=== PATIENT | male | born 1965 ===

== ENCOUNTER 2021-11-11 16:45 | Inpatient (IN) | payer OTHER ==
[~2021-11-11] VITALS: Ht 182.9 cm; Wt 61.4 kg
[2021-11-11 17:11] LABS: MEAN CORPUSCULAR HEMOGLOBIN 36.1 uug (23.8-33.4); MEAN CORPUSCULAR VOLUME 104.2 fL (73.0-96.2); PLATELET COUNT (AUTO) 437 K/uL (152-348)
[2021-11-11 17:26] LABS: ALANINE AMINOTRANSFERASE 58 U/L (16-63); ALKALINE PHOSPHATASE 176 U/L (50-136); ASPARTATE AMINOTRANSFERASE 77 U/L (15-37); BILIRUBIN,DIRECT 0.2 mg/dL (0.0-0.2); BILIRUBIN,TOTAL 0.4 mg/dL (0.2-1.0); CARBON DIOXIDE 28 mmol/L (21-32); CHLORIDE 102 mmol/L (98-107); CREATININE 0.8 mg/dL (0.6-1.3); POTASSIUM 2.9 mmol/L (3.5-5.1); TOTAL PROTEIN, SERUM 7.6 g/dL (6.4-8.2); UREA NITROGEN, BLOOD 5 mg/dL (7-18)
[2021-11-11 17:45] LABS: ACETAMINOPHEN < 2.0 ug/mL (10-30)
[2021-11-11] MEDS ORDERED: PANT40TA49 PO (17:46)
[2021-11-11] MEDS ORDERED: QUET25TA PO (17:46)
[2021-11-11] MEDS ORDERED: AMIT50TA3 PO (17:46)
[2021-11-11] MEDS ORDERED: GABA-532 PO (17:46)
[2021-11-11] MEDS ORDERED: GABA800T11 PO (17:46)
[2021-11-11] MEDS ORDERED: HYDR-501 PO (17:46)
[2021-11-11] MEDS ORDERED: MIRT-93 PO (17:46)
[2021-11-11] MEDS ORDERED: LEVE500T20 PO (17:46)
[2021-11-11] MEDS ORDERED: FLUT1BLS6 IH (17:46)
[2021-11-11] MEDS ORDERED: ACET-73 PO (17:46)
[2021-11-11] MEDS ORDERED: PROP20TA7 PO (17:46)
[2021-11-11] MEDS ORDERED: DEXTROSE 50% 50 ML DISP.SYRIN IV ONE (18:00)
[2021-11-11 18:05] LABS: ETHANOL 55 MG/DL (0-0)
[2021-11-11] MEDS ORDERED: DEXTROSE 50% 50 ML DISP.SYRIN ONE (18:14)
[2021-11-11] MEDS ORDERED: POTASSIUM CHLORIDE 50 ML ONE ×2 (18:47→19:52)
[2021-11-11] MEDS: POTASSIUM CHLORIDE 50 ML IV SCH ×2 (18:54→19:55)
--- NOTE | 2021-11-11 19:00 | NUR ---
received handoff report from Michael FRAZIER
[2021-11-11 19:27] LABS: *BILIRUBIN,URIN NEGATIVE (NEGATIVE); *BLOOD, URINE NEGATIVE (NEGATIVE); *CLARITY,URINE CLEAR (CLEAR); *COLOR,URINE YELLOW (YELLOW); *KETONES,URINE NEGATIVE (NEGATIVE); *UROBILINOGEN,URINE 0.2 E.U./dl (NORMAL); LEUKOCYTE ESTERASE ,URINE 3+ (NEGATIVE); NITRITE, URINE POSITIVE (NEGATIVE); UGLUCOSE NEGATIVE (NEGATIVE)
[2021-11-11 19:38] LABS: *AMPHETAMINE, URINE NEGATIVE (NEGATIVE); *CANNABINOID, URINE NEGATIVE (NEGATIVE); *COCCAINE, URINE NEGATIVE (NEGATIVE); *OPIATE, URINE NEGATIVE (NEGATIVE); *PHENCYCLIDINE SCREEN,URINE NEGATIVE (NEGATIVE)
--- NOTE | 2021-11-11 22:00 | NUR ---
Patient is awake. A/Ox4
[2021-11-11 22:46] LABS: BACTERIA,URINE 20 /HPF (NONE SEEN); WBC,URINE 0-3 /HPF (0-3)
[2021-11-11 22:47] LABS: SQUAMOUS EPITHELIAL CELL,UR FEW /HPF (NONE SEEN); YEAST,URINE MANY /HPF (NONE SEEN)
[2021-11-11] MEDS ORDERED: CEFTRIAXONE 1 G VIAL IM ONE (23:00)
[2021-11-11] MEDS ORDERED: FLUCONAZOLE 100 MG TABLET PO ONE (23:15)
[2021-11-11] MEDS ORDERED: FLUCONAZOLE 100 MG TABLET ONE (23:27)
[2021-11-12] VITALS (24 sets, daily range): BP systolic 73–119; BP diastolic 49–85
--- NOTE | 2021-11-12 00:19 | NUR ---
Called [facility] spoke with Dimple notified her that pt is being discharged and returning to facility. Called [facility] for transportation spoke with Radha and given ETA of 1 hour.
[2021-11-12] MEDS ORDERED: LORAZEPAM 2 MG/1 ML VIAL IM ONE (01:30)
[2021-11-12] MEDS ORDERED: LORAZEPAM 2 MG/1 ML VIAL ONE ×2 (01:31→08:44)
--- NOTE | 2021-11-12 02:00 | NUR ---
Patient went for CT
--- NOTE | 2021-11-12 02:15 | NUR ---
Patient is back from CT
--- NOTE | 2021-11-12 03:05 | NUR ---
Called [facility] ambulance for transport
--- NOTE | 2021-11-12 04:00 | NUR ---
[facility] ambulance arrived for transport
--- NOTE | 2021-11-12 04:05 | NUR ---
Patient not responding. Dr Hoang notified
--- NOTE | 2021-11-12 04:40 | NUR ---
called for bed
--- NOTE | 2021-11-12 05:00 | NUR ---
Dr Hoang spoke to Greyson Maldonado. Patient will be on tele
[2021-11-12] MEDS ORDERED: CEFTRIAXONE 1 G in IV DEXTROSE 5% 50 ML IV ONE (05:15)
[2021-11-12] MEDS ORDERED: CEFTRIAXONE /D5W 50ML IVPB **ER PYXIS IV ONE ×2 (05:17→08:53)
[2021-11-12] MEDS ORDERED: ACETAMINOPHEN 325 MG TABLET PO PRN (05:30)
[2021-11-12] MEDS ORDERED: MAGNESIUM HYDROXIDE 30 ML LIQUID UDC PO PRN (05:30)
[2021-11-12] MEDS ORDERED: IV NS 1000 ML 1,000 ML IV PRN (05:30)
[2021-11-12] MEDS ORDERED: TEMAZEPAM 15 MG CAPSULE PO PRN (05:30)
[2021-11-12] MEDS ORDERED: ONDANSETRON 4 MG/2 ML VIAL IV PRN (05:30)
[2021-11-12] MEDS ORDERED: HYDROCODONE/APAP 5-325MG TABLET PO PRN (05:30)
--- NOTE | 2021-11-12 06:07 | NUR ---
Jimena [address]. Not[address] Hoang
[2021-11-12] MEDS ORDERED: DEXTROSE 50% 50 ML DISP.SYRIN ONE ×2 (06:10→19:56)
[2021-11-12] MEDS ORDERED: DEXTROSE 50% 50 ML DISP.SYRIN IV ONE (06:15)
[2021-11-12] MEDS ORDERED: ONDANSETRON 4 MG/2 ML VIAL ONE (06:23)
[2021-11-12] MEDS ORDERED: GLUCAGON,HUMAN RECOMBINANT 1 MG VIAL ONE (06:23)
[2021-11-12] MEDS ORDERED: GLUCAGON,HUMAN RECOMBINANT 1 MG VIAL IVP ONE (06:30)
[2021-11-12] MEDS ORDERED: ONDANSETRON 4 MG/2 ML VIAL IV ONE (06:30)
[2021-11-12] MEDS: PANTOPRAZOLE SODIUM 40 MG TABLET.DR PO SCH ×2 (07:00→07:33)
--- NOTE | 2021-11-12 07:09 | NUR ---
Dragline Oiler assumes care: asleep, arousable by deep stimuli, non-verbal, his respiration: non-labored, RUE withdraws to painful stimuli with severe left sided weakness. Patient is waiting for an accepting 3rd floor telemetry nurse as endorsed by previous nurse Brenda for acute encephalopathy, UTI and hx of etoh abuse.
--- NOTE | 2021-11-12 07:13 | NUR ---
*Patient is not alert and does not follow simple commands. Patient needs formal swallow evaluation before further oral medications are given, MD notified.
[2021-11-12] MEDS ORDERED: PANTOPRAZOLE SODIUM 40 MG TABLET.DR PO ONE (07:28)
--- NOTE | 2021-11-12 07:48 | NUR ---
Patient is waiting for an accepting telemetry [email or web address] time.
--- NOTE | 2021-11-12 08:40 | NUR ---
Patient has intermittent jerking movements of right extremities, opens eyes to painful stimuli, still non-verbal, MD notified.
[2021-11-12] MEDS ORDERED: LORAZEPAM 2 MG/1 ML VIAL IV STA (08:41)
[2021-11-12] MEDS ORDERED: THIAMINE HCL 100 MG TABLET PO SCH (09:00)
[2021-11-12] MEDS ORDERED: CEFTRIAXONE 1 G in IV DEXTROSE 5% 50 ML IV SCH (09:00)
--- NOTE | 2021-11-12 09:13 | NUR ---
[email or web address].
--- NOTE | 2021-11-12 10:30 | NUR ---
Received report from nurse Caballero in ER. Pt is lethargic and drowsy, had episode of hypoglycemia and possible seizure in ER. dextrose adn glucagon were administered by ER staff. Most recent accucheck reported at 0742 this morning was 136. CT of brain showed nothing acute, history of right sided craniectomy. Pt right upper extremity rigid and left upper and lower severe weakness, possible hemiparesis. Troponin level critical high at 76. MD is aware, imaging and labs ordered by MD accordingly. Comfort measures provided, call light within reach. Will continue to monitor.
[2021-11-12] MEDS ORDERED: IV D5/ 0.9% NACL 1,000 ML IV PRN (11:30)
[2021-11-12] MEDS ORDERED: hydrALAZINE HCL 20 MG/1 ML VIAL IV PRN (12:30)
[2021-11-12 13:03] LABS: ABG BASE EXCESS -3.4 mmol/L; ABG HCO3 28.7 mmol/L; ABG PCO2 85.2 mmHg (35.0-45.0); ABG PH 7.146 (7.350-7.450); ABG PO2 39.8 mmHg (75.0-100.0); ABG SITE RIGHT RADIAL; ABG TOTAL HEMOGLOBIN 18.1 G/dL (13.5-18.0); COHb 1.1 % (0.5-1.5); MetHb 0.1 % (0.0-1.5); O2Hb 56.4 % (94.0-97.0); VENT MODE Nasal Cannula
--- NOTE | 2021-11-12 13:25 | NUR ---
1230 Pt continues to be lethargic, BP 197/114 HR 130, reassessed on both upper extremities and right lower extremity, SBP remained in high 190s. MD was notified and obtained order for hydralazine PRN. Was unable to obtain good reading of SpO2 saturation from several different points (right ear, left ear, fingers, toes, and forehead. Fluctuating saturation, highest noted saturation was 89% SpO2. Pt did not appear in distress. Called for RT to reassess pt. Reading were still fluctuation, placed pt on 2L nasal cannula and ordered ABG to be drawn. O2 was increased to 4L NC, Called for rapid response at 1245. MD was notified. Pulses palpable on all extremities and carotid. Checked blood sugar, resulted as low. Administered D50 IV. Pt BP reassessed and had decreased to SBP 91. HR was decreasing on tele to < 40bpm. Code mell was called. MD was notified of code. ER MD, Charge nurse, and other nursing staff present in room beginning CPR. Pt was intubated by and transferred back to ER at 1325 per machine records units supervisor.
--- NOTE | 2021-11-12 13:30 | NUR ---
Pt was brought to the ER from the tele floor post code blue as ccu status for hospital convenience due to staffing issue. Pt arrives intubated and was placed on vent by PROJECT MANAGER/DESIGN MANAGER.
[2021-11-12] MEDS ORDERED: MIDAZOLAM HCL 5 MG/ML VIAL ONE (13:58)
[2021-11-12] MEDS ORDERED: PIPERACILLIN/TAZOBACTAM/D5W 50 ML IV ONE (13:58)
--- NOTE | 2021-11-12 14:00 | NUR ---
Versed 5mg IM given per verbal order by (who is at bedside).
[2021-11-12] MEDS ORDERED: PANT20TA17 PO (14:01)
[2021-11-12 14:29] LABS: BILIRUBIN,TOTAL 0.3 mg/dL (0.2-1.0); MAGNESIUM 1.8 mg/dL (1.8-2.4); PHOSPHOROUS 5.7 mg/dL (2.5-4.9); TOTAL PROTEIN, SERUM 7.5 g/dL (6.4-8.2)
[2021-11-12] MEDS: IV D5W 1000ML 1,000 ML IV PRN ×2 (14:30→15:39)
--- NOTE | 2021-11-12 14:45 | NUR ---
SBAR REPORT RECIVE FROM JOSE A Matthews/RN & RETAIL SERVICES PROFESSIONAL:SHERRY PT.IN ER ICU CARE. ASSUME CARE.
[2021-11-12] MEDS: NOREPINEPHRINE BITARTRATE 8 MG in IV NORMAL SALINE 242 ML IV PRN ×2 (14:46→18:18)
[2021-11-12 14:55] LABS: ABG HCO3 24.1 mmol/L; ABG PCO2 34.3 mmHg (35.0-45.0); ABG PH 7.464 (7.350-7.450); ABG PO2 526.5 mmHg (75.0-100.0); ABG SITE RIGHT RADIAL; ABG TOTAL HEMOGLOBIN 16.4 G/dL (13.5-18.0); COHb 0.3 % (0.5-1.5); MetHb 0.5 % (0.0-1.5); O2Hb 98.9 % (94.0-97.0); VENT MODE VENT - A/C; VT, ABG 500 mL
--- NOTE | 2021-11-12 15:05 | NUR ---
PT WAS TAKEN TO CT HEAD,TOLERATED WELL.
--- NOTE | 2021-11-12 15:16 | NUR ---
3 LUMEN CENTRAL LINE WAS INSERTED BY DR MCNALLY. PT TOLERATED TO PROCEDURE WITHOUT COMPLICATIONS.
[2021-11-12] MEDS: PIPERACILLIN SODIUM/TAZOBACTAM 3.375 G in IV DEXTROSE 5% 50 ML IV SCH ×2 (15:22→21:26)
[2021-11-12] MEDS: VANCOMYCIN IV 1,000 MG in IV DEXTROSE 5% 250 ML IV SCH (15:23)
[2021-11-12] MEDS: levETIRAcetam 500 MG TABLET PO SCH ×2 (15:29→21:27)
[2021-11-12] MEDS: PROPOFOL 100 ML IV PRN (16:06)
--- NOTE | 2021-11-12 16:10 | NUR ---
LACT ACID RES 4.4 WENT UP FUR OPERATOR:SHERRY WAS NOTIFIED ABOUT AND PT. HR STILL 130'S, CARE OUT ORDER FOR BOLUS NS 500ML.
--- NOTE | 2021-11-12 16:45 | NUR ---
PT.WAS SEEN BY WITH NEW ORDERS.
[2021-11-12] MEDS: HEPARIN/D5W DRIP 500 ML IV PRN (16:58)
[2021-11-12] MEDS ORDERED: HEPARIN SODIUM,PORCINE 1,000 UNITS/ML VIAL IV ONE (17:00)
[2021-11-12] MEDS ORDERED: GABAPENTIN 100 MG CAPSULE PO SCH (17:00)
[2021-11-12] MEDS ORDERED: GABAPENTIN 300 MG CAPSULE PO SCH (17:00)
[2021-11-12] MEDS ORDERED: hydrOXYzine HCL 25 MG TABLET PO SCH (17:00)
[2021-11-12] MEDS ORDERED: IV NORMAL SALINE 500 ML IV ONE ×2 (17:15→20:15)
[2021-11-12] MEDS ORDERED: AMITRIPTYLINE HCL 50 MG TABLET PO SCH (18:00)
[2021-11-12] MEDS ORDERED: MIRTAZAPINE 15 MG TABLET PO SCH (18:00)
[2021-11-12] MEDS: ALBUTEROL SULFATE 2.5 MG/3 ML NEBU NEB SCH (19:42)
[2021-11-12] MEDS: IPRATROPIUM BROMIDE 0.5 MG/2.5 ML NEBU NEB SCH (19:42)
[2021-11-12] MEDS: IV 10% DEXTROSE 1,000 ML IV PRN (21:00)
[2021-11-12] MEDS: ACETAMINOPHEN 650 MG SUPP.RECT RC PRN (21:00)
[2021-11-13] VITALS (94 sets, daily range): BP systolic 70–150; BP diastolic 23–112
[2021-11-13] MEDS: VANCOMYCIN IV 1,000 MG in IV DEXTROSE 5% 250 ML IV SCH ×3 (00:05→20:15)
[2021-11-13] MEDS: BLOOD SUGAR DIAGNOSTIC 1 EACH STRIP VI SCH ×6 (00:06→19:31)
[2021-11-13] MEDS: PROPOFOL 100 ML IV PRN ×3 (00:12→20:36)
[2021-11-13 00:44] LABS: BILIRUBIN,TOTAL 0.5 mg/dL (0.2-1.0); MAGNESIUM 1.4 mg/dL (1.8-2.4); PHOSPHOROUS 2.7 mg/dL (2.5-4.9)
[2021-11-13 00:51] LABS: POTASSIUM 2.6 mmol/L (3.5-5.1)
[2021-11-13] MEDS ORDERED: POTASSIUM CHLORIDE 20 MEQ POWDER PACKET GT ONE (01:15)
[2021-11-13] MEDS: POTASSIUM CHLORIDE 50 ML IV SCH ×6 (01:35→19:05)
[2021-11-13] MEDS: MAGNESIUM SULFATE/D5W 100 ML IV SCH ×2 (01:36→02:42)
[2021-11-13] MEDS: ALBUTEROL SULFATE 2.5 MG/3 ML NEBU NEB SCH ×4 (01:41→19:06)
[2021-11-13] MEDS: IPRATROPIUM BROMIDE 0.5 MG/2.5 ML NEBU NEB SCH ×4 (01:41→19:06)
[2021-11-13] MEDS ORDERED: ACETAMINOPHEN 650 MG/20.3 ML LIQUID UDC GT PRN (03:30)
[2021-11-13] MEDS: PIPERACILLIN SODIUM/TAZOBACTAM 3.375 G in IV DEXTROSE 5% 50 ML IV SCH (05:14)
[2021-11-13] MEDS: NOREPINEPHRINE BITARTRATE 8 MG in IV NORMAL SALINE 242 ML IV PRN (05:34)
[2021-11-13 05:43] LABS: HEMATOCRIT 45.3 % (36.7-47.1); MEAN CORPUSCULAR VOLUME 104.2 fL (73.0-96.2); PLATELET COUNT (AUTO) 328 K/uL (152-348)
[2021-11-13] MEDS ORDERED: TEMAZEPAM 15 MG CAPSULE PO PRN (05:45)
[2021-11-13 06:01] LABS: CREATININE 0.9 mg/dL (0.6-1.3); MAGNESIUM 2.3 mg/dL (1.8-2.4); PHOSPHOROUS 2.2 mg/dL (2.5-4.9); POTASSIUM 3.6 mmol/L (3.5-5.1)
[2021-11-13 06:12] LABS: THYROID STIMULATING HORMONE 0.181 mIU/mL (0.358-3.740)
[2021-11-13 06:24] LABS: ABG BASE EXCESS 0.3 mmol/L; ABG HCO3 23.2 mmol/L; ABG PH 7.465 (7.350-7.450); ABG PO2 78.6 mmHg (75.0-100.0); ABG SITE LEFT RADIAL; COHb 0.5 % (0.5-1.5); MetHb 0.4 % (0.0-1.5); O2Hb 95.5 % (94.0-97.0); VENT MODE VENT - A/C; VT, ABG 500 mL
[2021-11-13] MEDS ORDERED: CLOPIDOGREL 75 MG TABLET PO SCH (09:00)
[2021-11-13] MEDS ORDERED: PANTOPRAZOLE ORAL SUSPENSION 40 MG SUSPDR.PKT GT SCH (09:00)
[2021-11-13] MEDS ORDERED: PROPRANOLOL HCL 20 MG TABLET PO SCH (09:00)
[2021-11-13] MEDS ORDERED: GABAPENTIN 400 MG CAPSULE PO SCH (09:00)
[2021-11-13] MEDS ORDERED: ASPIRIN 81 MG TAB.CHEW PO SCH (09:00)
[2021-11-13] MEDS ORDERED: HYDROCODONE/APAP 5-325MG TABLET NG PRN (09:01)
[2021-11-13] MEDS ORDERED: PANTOPRAZOLE ORAL SUSPENSION 40 MG SUSPDR.PKT NG SCH (09:02)
[2021-11-13] MEDS ORDERED: hydrOXYzine HCL 25 MG TABLET NG SCH (09:02)
[2021-11-13] MEDS ORDERED: MAGNESIUM HYDROXIDE 30 ML LIQUID UDC NG PRN (09:02)
[2021-11-13] MEDS ORDERED: GABAPENTIN 300 MG CAPSULE NG SCH (09:02)
[2021-11-13] MEDS ORDERED: MAGNESIUM SULFATE/D5W 100 ML IV SCH (09:15)
[2021-11-13] MEDS: levETIRAcetam 500 MG TABLET PO SCH (09:42)
[2021-11-13] MEDS: GABAPENTIN 300 MG CAPSULE NG SCH ×3 (09:42→17:00)
[2021-11-13] MEDS: CLOPIDOGREL 75 MG TABLET NG SCH (09:42)
[2021-11-13] MEDS: PANTOPRAZOLE ORAL SUSPENSION 40 MG SUSPDR.PKT NG SCH (09:42)
[2021-11-13] MEDS: ACETAMINOPHEN 650 MG/20.3 ML LIQUID UDC NG PRN (10:43)
[2021-11-13] MEDS ORDERED: POTASSIUM PHOSPHATE MM 15 MMOL in IV NORMAL SALINE 250 ML IV ONE (11:00)
[2021-11-13] MEDS ORDERED: PHENYLEPHRINE IV 100 MG in IV NORMAL SALINE 240 ML IV PRN (11:00)
[2021-11-13] MEDS ORDERED: DEXTROSE 50% 50 ML DISP.SYRIN IV ONE ×3 (12:15→17:45)
[2021-11-13] MEDS: PHENYLEPHRINE IV 100 MG in IV NORMAL SALINE 240 ML IV PRN (13:05)
[2021-11-13] MEDS: IV 10% DEXTROSE 1,000 ML IV PRN (13:52)
[2021-11-13] MEDS: MEROPENEM 1 G in IV NORMAL SALINE 100 ML IV SCH ×2 (14:04→21:10)
--- NOTE | 2021-11-13 14:12 | NUR ---
Inquired with Dr. Chin to start tube feeding and received orders to start tube feeding per dietary reccomendations.
--- NOTE | 2021-11-13 14:41 | NUR ---
Patient noted to be bucking the vent, tachycardic, and tachypneic, right arm involuntary movement with subsequent right leg movement and shaking. Notified Dr. Chin of possible seizure activity, received orders for keppra 1000mg IV now and [id number].
--- NOTE | 2021-11-13 15:10 | NUR ---
Patient vomiting, and noted desaturation, RT called to bedside and increased oxygen to 100%. Patient given zofran and patients HR returned and possible seizure activity stopped. HR returned to low 100's, and able to titrate oxygen back to 30% with an oxygen saturation of 99%. Checked blood glucose to reveal a BG level of 111.
[2021-11-13] MEDS: levETIRAcetam IV 1,000 MG in IV DEXTROSE 5% 100 ML IV SCH ×2 (15:14→20:16)
[2021-11-13 16:48] LABS: HEMATOCRIT 43.5 % (36.7-47.1); MEAN CORPUSCULAR HEMOGLOBIN 35.8 uug (23.8-33.4); MEAN CORPUSCULAR VOLUME 105.9 fL (73.0-96.2); PLATELET COUNT (AUTO) 292 K/uL (152-348)
[2021-11-13 16:56] LABS: POTASSIUM 3.5 mmol/L (3.5-5.1)
[2021-11-13 17:02] LABS: BILIRUBIN,TOTAL 0.6 mg/dL (0.2-1.0); TOTAL PROTEIN, SERUM 6.2 g/dL (6.4-8.2)
--- NOTE | 2021-11-13 17:10 | NUR ---
Patient placed on Air mattress, and EEG here for evaluation.
[2021-11-13] MEDS: LORAZEPAM 2 MG/1 ML VIAL IV PRN ×2 (17:45→19:27)
--- NOTE | 2021-11-13 17:50 | NUR ---
patient had an episode of shaking during EEG, dr zepeda on the phone and requested 1mg ativan to be given and patient started vomiting again with Blood Glucose level 45. D50 given, and NG tube to low suction with immediate return of 250cc/or straw colored and later more purulent looking brownish fluid.
[2021-11-13] MEDS ORDERED: MIRTAZAPINE 15 MG TABLET NG SCH (18:00)
[2021-11-13] MEDS: ACETAMINOPHEN 650 MG SUPP.RECT RC PRN (18:30)
--- NOTE | 2021-11-13 18:34 | NUR ---
Patient spiked temperature of 100.1 at this time, tylenol given and cooling blanket taken off of monitoring mode to actively cool.
[2021-11-13] MEDS ORDERED: NOREPINEPHRINE BITARTRATE 32 MG in IV NORMAL SALINE 218 ML IV PRN (18:45)
[2021-11-13] MEDS: HEPARIN/D5W DRIP 500 ML IV PRN (19:22)
--- NOTE | 2021-11-13 19:22 | NUR ---
Report given to shift foreman nurse Kacey. Patient continues to be sinus tachycardia on neosynephrine 2.5 mcg/kg/min, propofol 45 mcg/kg/min, d10 running at 50cc/hr. Patient is overbreathing the vent and is on the cooling blanket with a temp of 98.8f. rivas draining appropriately, and patient is on air mattress.
--- NOTE | 2021-11-13 20:00 | NUR ---
Patient is restless, very agitated, backing up on the vent, RT at bedside. Patient is not getting the minute ventilation. Suctioned done. Patient is tachycardic, NP=[id number], tachypneic, RR=24. Ativan PRN as ordered given for agitation.
[2021-11-13] MEDS: ATORVASTATIN 40 MG TABLET NG SCH (20:35)
--- NOTE | 2021-11-13 20:50 | NUR ---
Lab called regarding critical lab result LA 2.5. Called [facility] exchange, awaiting for callback.
[2021-11-13] MEDS: IV NORMAL SALINE 250 ML IV PRN (20:57)
[2021-11-13] MEDS ORDERED: ATORVASTATIN 40 MG TABLET PO SCH (21:00)
[2021-11-13] MEDS ORDERED: AMITRIPTYLINE HCL 50 MG TABLET NG SCH (21:00)
--- NOTE | 2021-11-13 21:00 | NUR ---
Spoke with Dr. Leonardo re: LA 2.5. Per Dr. Leonardo, no new orders.
[2021-11-13] MEDS ORDERED: PIPERACILLIN SODIUM/TAZOBACTAM 3.375 G in IV DEXTROSE 5% 100 ML IV SCH (22:00)
[2021-11-13] MEDS ORDERED: FLUCONAZOLE 200 MG/NS 100ML IV 100 MG in PREMIXED 1 EACH IV SCH (22:00)
[2021-11-13] MEDS ORDERED: FLUCONAZOLE 200 MG/100 ML PIGGYBACK ONE (23:19)
[2021-11-14] VITALS (91 sets, daily range): BP systolic 80–147; BP diastolic 37–126
[2021-11-14] MEDS: BLOOD SUGAR DIAGNOSTIC 1 EACH STRIP VI SCH ×6 (00:05→20:10)
--- NOTE | 2021-11-14 00:30 | NUR ---
rn psychiatric LIZA came and examined patient with WOUND CARE TREATMENT AND RECOMMENDATION. Addendum: 11/14/21 at 1310 by TALAT DENNEY RN DONE AT 11/14/2021 AT 12:30
[2021-11-14] MEDS: ALBUTEROL SULFATE 2.5 MG/3 ML NEBU NEB SCH ×4 (01:22→21:17)
[2021-11-14] MEDS: IPRATROPIUM BROMIDE 0.5 MG/2.5 ML NEBU NEB SCH ×4 (01:22→21:16)
[2021-11-14] MEDS: PROPOFOL 100 ML IV PRN ×3 (02:05→17:02)
[2021-11-14 04:55] LABS: MEAN CORPUSCULAR HEMOGLOBIN 36.4 uug (23.8-33.4); MEAN CORPUSCULAR VOLUME 106.9 fL (73.0-96.2); PLATELET COUNT (AUTO) 284 K/uL (152-348)
[2021-11-14] MEDS: MEROPENEM 1 G in IV NORMAL SALINE 100 ML IV SCH ×3 (05:09→20:38)
[2021-11-14 05:10] LABS: BILIRUBIN,TOTAL 0.6 mg/dL (0.2-1.0); CREATININE 0.9 mg/dL (0.6-1.3); MAGNESIUM 1.9 mg/dL (1.8-2.4); PHOSPHOROUS 3.4 mg/dL (2.5-4.9); POTASSIUM 3.6 mmol/L (3.5-5.1); TOTAL PROTEIN, SERUM 6.4 g/dL (6.4-8.2)
[2021-11-14] MEDS: VANCOMYCIN IV 1,000 MG in IV DEXTROSE 5% 250 ML IV SCH ×2 (05:10→15:42)
[2021-11-14] MEDS: PANTOPRAZOLE ORAL SUSPENSION 40 MG SUSPDR.PKT NG SCH (05:10)
--- NOTE | 2021-11-14 05:58 | NUR ---
PT REMAINS INTUBATED ON CMV, NO VENT CHANGES MADE DURING SHIFT. SPO2 AND RESPIRATIONS WNL. NO RESP. DISTRESS NOTED. DURING SHIFT. ETT REPOSITIONED Q2. WILL CONTINUE TO MONITOR AND FOLLOW CURRENT RESP. TREATMENTS ORDERED.
--- NOTE | 2021-11-14 06:00 | NUR ---
no changed on the heparin drip APTT 59.5.follow heparin drip protocol .
[2021-11-14 06:19] LABS: ABG BASE EXCESS -2.3 mmol/L; ABG HCO3 21.8 mmol/L; ABG PH 7.401 (7.350-7.450); ABG PO2 111.3 mmHg (75.0-100.0); ABG SITE LEFT RADIAL; ABG TOTAL HEMOGLOBIN 15.3 G/dL (13.5-18.0); COHb 0.5 % (0.5-1.5); MetHb 0.2 % (0.0-1.5); O2Hb 97.6 % (94.0-97.0); VENT MODE VENT - A/C; VT, ABG 500 mL
--- NOTE | 2021-11-14 07:15 | NUR ---
PATIENT COOLING BLANKET FOR KEEP TEMP 98.6 F.SEE VITALS SHEET .
--- NOTE | 2021-11-14 07:45 | NUR ---
DR: SOCRATES at bedside making rounds , md examined patient .updated MD with patient v/s ,vent ,secretions and medications .
--- NOTE | 2021-11-14 08:07 | NUR ---
Pt received on cont west vent with given settings of AC 20, VT 500, PEEP +5, 30% Fio2. ETT is secured via anchorfast @ approx 24 at the lip. Oral care and sxn provided. Alarms on and audible. Ventilator plugged in red out let with ambubag at bedside. Tx given at this time. Will continue to monitor throughout shift.
[2021-11-14] MEDS: levETIRAcetam IV 1,000 MG in IV DEXTROSE 5% 100 ML IV SCH ×2 (08:13→20:32)
[2021-11-14] MEDS: PHENYLEPHRINE IV 100 MG in IV NORMAL SALINE 240 ML IV PRN ×4 (08:18→17:32)
--- NOTE | 2021-11-14 08:32 | NUR ---
seen by DR: EDEN .
[2021-11-14] MEDS: CLOPIDOGREL 75 MG TABLET NG SCH (08:39)
[2021-11-14] MEDS: THIAMINE HCL 100 MG TABLET NG SCH (08:39)
[2021-11-14] MEDS: GABAPENTIN 300 MG CAPSULE NG SCH ×3 (08:40→17:00)
[2021-11-14] MEDS: IV 10% DEXTROSE 1,000 ML IV PRN ×2 (08:51→19:33)
--- NOTE | 2021-11-14 09:28 | NUR ---
respiratory therapist at b/s placed patient on cpap peep 5 psv 8 titrate fio2 greater than or equal to 94%.
--- NOTE | 2021-11-14 09:30 | NUR ---
turned and reposition patient ,offloaded back with pillows and ble elevated with pillows . hob up.suction via mouth and via ett ,mouth orally moderate to large ,thick secretion brownish-walden ,ett was small to dry secretions.
[2021-11-14 10:59] LABS: ABG BASE EXCESS -2.5 mmol/L; ABG HCO3 23.2 mmol/L; ABG PH 7.349 (7.350-7.450); ABG PO2 43.4 mmHg (75.0-100.0); ABG SITE LEFT RADIAL; ABG TOTAL HEMOGLOBIN 15.9 G/dL (13.5-18.0); COHb 0.6 % (0.5-1.5); CPAP,BG 8 cmH20; MetHb 0.1 % (0.0-1.5); O2Hb 76.1 % (94.0-97.0); VENT MODE VENT - CPAP
--- NOTE | 2021-11-14 11:44 | NUR ---
called JOMAR CROWELL dictated abg results . made aware abg done on cpap he said he want the cpap in am not now the order says 11/14/2021 08:22
--- NOTE | 2021-11-14 11:53 | NUR ---
MD:MICHAEL BERGMAN came and examined patient ,as per MD she is going to stop vancomycin ,fluconazole .
--- NOTE | 2021-11-14 12:27 | NUR ---
WOUND CARE CONSULT: PT PRESENTS WITH SACRAL INTACT DTI AND LEFT THUMB WOUND WITH YELLOW SLOUGH, PRESENT ON ADMISSION. DR TED TORREZ NOTIFIED OF SURGICAL CONSULT REQUEST. RECOMMENDATIONS MADE FOR SKIN PROTECTION AND WOUND CARE. DISCUSSED WITH NURSING STAFF. PT IS ON FIRST STEP LOW AIRLOSS MATTRESS. MD IN AGREEMENT WITH PLAN OF CARE.
[2021-11-14] MEDS ORDERED: NOREPINEPHRINE BITARTRATE 8 MG in IV NORMAL SALINE 242 ML IV PRN (17:00)
--- NOTE | 2021-11-14 18:30 | NUR ---
FAHEEM Hogan WOUND CARE ASSEMBLER MOTOR VEHICLE ( SURGEON) came and examined patient c/o left thumb continue same as wound care nurse recommendation.
[2021-11-14] MEDS ORDERED: IV NORMAL SALINE 250 ML IV ONE ×2 (19:45→20:00)
[2021-11-14] MEDS: ATORVASTATIN 40 MG TABLET NG SCH (20:38)
--- NOTE | 2021-11-14 23:00 | NUR ---
Received report. Continuity of care from previous shift. Assessment done. Will continue to monitor closely.
--- NOTE | 2021-11-14 23:22 | NUR ---
report given to stepan matrinez
[2021-11-15] VITALS (96 sets, daily range): BP systolic 75–164; BP diastolic 50–123
[2021-11-15] MEDS: BLOOD SUGAR DIAGNOSTIC 1 EACH STRIP VI SCH ×7 (00:05→23:50)
[2021-11-15] MEDS: IPRATROPIUM BROMIDE 0.5 MG/2.5 ML NEBU NEB SCH ×4 (01:26→19:56)
[2021-11-15] MEDS: ALBUTEROL SULFATE 2.5 MG/3 ML NEBU NEB SCH ×4 (01:26→19:57)
[2021-11-15] MEDS: PROPOFOL 100 ML IV PRN ×2 (01:31→21:35)
[2021-11-15] MEDS: HEPARIN/D5W DRIP 500 ML IV PRN (02:31)
--- NOTE | 2021-11-15 03:35 | NUR ---
PATIENT ON CONT SIDHU VENT WITH 7.5 ET/TUBE IN PLACE AND SECURED WITH ANCHOR FAST, WITH CURRENT VENT SETTINGS, A/C 20, VT 500ML , PEEP5, FIO2 @ 30%, PT DOES ASSIST AT TIMES, AND MOVE AROUND SLIGHTLY, NO VENT CHANGES MADE, SUCTIONED LIGHT PALE YELL TINGE SECRETIONS, CHANGE HME, ALL VENT ALARMS , WEAN IN AM , ON TRIAL CPAP PSV 8, ON DAY SHIFT.Shruti VOGEL RCP Addendum: 11/15/21 at 0337 by CHEMA VOGEL RT Amended: Links added.
--- NOTE | 2021-11-15 03:45 | NUR ---
AM care and HCG bath done. Linen changed.
[2021-11-15 05:32] LABS: HEMATOCRIT 40.8 % (36.7-47.1); MEAN CORPUSCULAR HEMOGLOBIN 36.3 uug (23.8-33.4); MEAN CORPUSCULAR VOLUME 106.3 fL (73.0-96.2); PLATELET COUNT (AUTO) 259 K/uL (152-348)
[2021-11-15 05:44] LABS: CREATININE 0.8 mg/dL (0.6-1.3); MAGNESIUM 1.8 mg/dL (1.8-2.4); PHOSPHOROUS 2.3 mg/dL (2.5-4.9); POTASSIUM 3.4 mmol/L (3.5-5.1)
--- NOTE | 2021-11-15 06:00 | NUR ---
No seizure activity noted.
[2021-11-15] MEDS: MEROPENEM 1 G in IV NORMAL SALINE 100 ML IV SCH ×3 (06:22→21:10)
[2021-11-15] MEDS: PANTOPRAZOLE ORAL SUSPENSION 40 MG SUSPDR.PKT NG SCH (06:25)
--- NOTE | 2021-11-15 07:30 | NUR ---
received change of shift report on pt. pt intubated et 7.5, lipline 23, FiO2 40%, mech AC 20, TV 500, Peep 5. pt sinus tachy, rivas in place and in tact, draining urine. IV access on the right FA 20g and right IJ triple lumen. holding propofol, pt on weaning trial. will continue to monitor
[2021-11-15 08:35] LABS: ABG HCO3 21.5 mmol/L; ABG PCO2 29.9 mmHg (35.0-45.0); ABG PH 7.474 (7.350-7.450); ABG PO2 86.2 mmHg (75.0-100.0); ABG SITE LEFT BRACHIAL; ABG TOTAL HEMOGLOBIN 14.2 G/dL (13.5-18.0); COHb 0.2 % (0.5-1.5); CPAP,BG 8 cmH20; MetHb 0.2 % (0.0-1.5); O2Hb 96.9 % (94.0-97.0); VENT MODE CPAP
--- NOTE | 2021-11-15 08:45 | NUR ---
seen by edge stainer machine, orders to titrate raúl will continue to monitor
[2021-11-15] MEDS: THIAMINE HCL 100 MG TABLET NG SCH (09:10)
[2021-11-15] MEDS: levETIRAcetam IV 1,000 MG in IV DEXTROSE 5% 100 ML IV SCH ×2 (09:11→20:37)
[2021-11-15] MEDS: CLOPIDOGREL 75 MG TABLET NG SCH (09:11)
[2021-11-15] MEDS: GABAPENTIN 300 MG CAPSULE NG SCH ×3 (09:11→18:34)
[2021-11-15] MEDS: PHENYLEPHRINE IV 100 MG in IV NORMAL SALINE 240 ML IV PRN (10:28)
[2021-11-15] MEDS ORDERED: POTASSIUM PHOSPHATE MM 15 MMOL in IV NORMAL SALINE 250 ML IV ONE (11:00)
--- NOTE | 2021-11-15 12:24 | NUR ---
1058am: Heart rate increased to high 140'/min. Respiratory therapist Jair is at bedside, suctioning in progress. Primary RN Bharti notified. 1215pm: Heart rate down to 130's/min. Dr Escobar is@bedside and is updated accordingly.
[2021-11-15] MEDS: IV 10% DEXTROSE 1,000 ML IV PRN (16:26)
--- NOTE | 2021-11-15 17:00 | NUR ---
PT REMAINS INTUBATED, STABLE ON VENT. PT IS TOLERATING CPAP 5, PSV 8, 30% FIO2 WELL. PT IS UNRESPONSIVE, UNABLE TO FOLLOW COMMANDS. RN/MD IS AWARE. ADEQUATE VOLUMES OBSERVED. SPO2 AND RESPIRATIONS WNL. NO RESP. DISTRESS NOTED. IN-LINE TX'S TOLERATED WELL WITHOUT ADVERSE REACTION. ETT REPOSITIONED Q2. WILL CONTINUE TO MONITOR AND FOLLOW CURRENT RESPIRATORY TREATMENTS ORDERED.
[2021-11-15] MEDS: ACETAMINOPHEN 650 MG/20.3 ML LIQUID UDC NG PRN ×2 (18:35→21:29)
[2021-11-15] MEDS: ATORVASTATIN 40 MG TABLET NG SCH (20:37)
--- NOTE | 2021-11-15 21:00 | NUR ---
Dr Haynes at bedside, report given.
--- NOTE | 2021-11-15 21:00 | NUR ---
Patient is very agitated. Ativan PRN given as ordered. Will continue to monitor closely.
[2021-11-15] MEDS: LORAZEPAM 2 MG/1 ML VIAL IV PRN (21:10)
--- NOTE | 2021-11-15 21:37 | NUR ---
Patient still agitated, moving extremities, placed back on propofol drip @5mcg/kg/min. Will continue to monitor closely. Addendum: 11/16/21 at 0515 by Beth Salas RN tachycardic, DS=[id number].
[2021-11-15] MEDS: REMEDY ESSENTIAL ZINC PASTE 113 GM TP PRN (22:11)
[2021-11-16] VITALS (92 sets, daily range): BP systolic 67–142; BP diastolic 32–101
[2021-11-16] MEDS: ALBUTEROL SULFATE 2.5 MG/3 ML NEBU NEB SCH ×4 (00:33→19:57)
[2021-11-16] MEDS: IPRATROPIUM BROMIDE 0.5 MG/2.5 ML NEBU NEB SCH ×4 (00:33→19:56)
--- NOTE | 2021-11-16 00:38 | NUR ---
PATIENT HAS BEEN ON SIDHU VENT WITH 7.5 ET/TUBE IN PLACE WITH ANCHOR FAST, ROTATE TUBE, SUCTION, SUCTION MOUTH, CHANGE HME AND THI, PT HAS BEEN ON CPAP MODE PSV8, APPROX. RR17, NEB INLINE, STABLE, NO CHANGES MADE, 0800 ABG. D JASPREET LABOR RELATIONS SUPERVISOR Addendum: 11/16/21 at 0040 by CHEMA VOGEL RT Amended: Links added.
--- NOTE | 2021-11-16 01:00 | NUR ---
Propofol turned off, BP 89/65, patient is responsive to physical stimuli. Will monitor later if needed to be restarted.
[2021-11-16] MEDS: PHENYLEPHRINE IV 100 MG in IV NORMAL SALINE 240 ML IV PRN (03:16)
[2021-11-16] MEDS: BLOOD SUGAR DIAGNOSTIC 1 EACH STRIP VI SCH ×6 (04:25→23:13)
[2021-11-16] MEDS: MEROPENEM 1 G in IV NORMAL SALINE 100 ML IV SCH ×2 (05:33→14:10)
[2021-11-16] MEDS: PANTOPRAZOLE ORAL SUSPENSION 40 MG SUSPDR.PKT NG SCH (05:39)
[2021-11-16 05:41] LABS: MEAN CORPUSCULAR HEMOGLOBIN 36.2 uug (23.8-33.4); MEAN CORPUSCULAR VOLUME 106.3 fL (73.0-96.2); PLATELET COUNT (AUTO) 269 K/uL (152-348)
[2021-11-16 05:46] LABS: CREATININE 0.7 mg/dL (0.6-1.3); PHOSPHOROUS 2.5 mg/dL (2.5-4.9); POTASSIUM 2.9 mmol/L (3.5-5.1)
--- NOTE | 2021-11-16 06:00 | NUR ---
No seizure activity noted.
[2021-11-16] MEDS ORDERED: POTASSIUM CHLORIDE 20 MEQ POWDER PACKET GT STA (06:37)
--- NOTE | 2021-11-16 06:40 | NUR ---
Patient slowly started to move feet. VSS. Will continue to monitor closely.
--- NOTE | 2021-11-16 06:40 | NUR ---
Called [facility] and spoke with Greyson Maldonado NP re: K lab. Per Greyson Maldonado NP to give K 40mEq via NG now, then give K 40mEq IV. Noted and carried out.
[2021-11-16] MEDS: POTASSIUM CHLORIDE 50 ML IV SCH ×4 (07:58→10:21)
[2021-11-16] MEDS: THIAMINE HCL 100 MG TABLET NG SCH (07:58)
[2021-11-16] MEDS: CLOPIDOGREL 75 MG TABLET NG SCH (07:58)
[2021-11-16] MEDS: GABAPENTIN 300 MG CAPSULE NG SCH ×3 (07:58→17:12)
[2021-11-16] MEDS: LORAZEPAM 2 MG/1 ML VIAL IV PRN (07:59)
--- NOTE | 2021-11-16 08:46 | NUR ---
PT RECEIVED ON CPAP WITH ORDERED SETTINGS. CPAP +5 P/S 8 @30%
[2021-11-16] MEDS: levETIRAcetam IV 1,000 MG in IV DEXTROSE 5% 100 ML IV SCH ×2 (08:53→20:34)
--- NOTE | 2021-11-16 12:00 | NUR ---
Dr. gant in the unit to see patient. patient unable to extubate patient is not able to follow commands or is awake. Patient to be placed back on AC mode with new settings, sedation as required.
--- NOTE | 2021-11-16 12:21 | NUR ---
@1127 DR ORDERED PT TO BE CHANGED TO AC 12 450 +5 @ 40% FIO2. PT DAYSI WELL.
[2021-11-16] MEDS: IV 10% DEXTROSE 1,000 ML IV PRN (15:29)
--- NOTE | 2021-11-16 16:30 | NUR ---
Dr. cervantes ordered to start feedings and start GI floranex
[2021-11-16] MEDS ORDERED: SODIUM BICARBONATE 8.4% 50 MEQ/50 ML DISP.SYRIN IV ONE (16:49)
[2021-11-16] MEDS ORDERED: EPINEPHRINE 1:10,000 1 MG/10 ML DISP.SYRIN IV ONE (16:49)
[2021-11-16] MEDS ORDERED: DEXTROSE 50% 50 ML DISP.SYRIN IV ONE (16:49)
[2021-11-16] MEDS: CULTURELLE CAPSULE NG SCH ×3 (17:11→20:34)
[2021-11-16] MEDS: ACETAMINOPHEN 650 MG/20.3 ML LIQUID UDC NG PRN (17:23)
[2021-11-16] MEDS: PROPOFOL 100 ML IV PRN (19:19)
[2021-11-16] MEDS: ATORVASTATIN 40 MG TABLET NG SCH (20:34)
[2021-11-16] MEDS: CEFEPIME HCL 1 G in IV DEXTROSE 5% 50 ML IV SCH (21:33)
--- NOTE | 2021-11-16 23:41 | NUR ---
PATIENT ON CONT SIDHU VENT WITH 7.5 ET/TUBE IN PLACE AND SECURED WITH ANCHOR FAST, MOVE Q2 HOURS, SUCTION MOUTH , SUCTION ET/TUBE, SLIGHT PALE YELL TINGE SECRETIONS, CHANGE HME, ALL VENT ALARMS GOOD, PT ON A/C 12, 450ML, PEEP5, FIO2 @ 40%, ALL SHIFT .Shruti PEREZP Addendum: 11/16/21 at 2343 by CHEMA VOGEL RT Amended: Links added.
[2021-11-17] VITALS (94 sets, daily range): BP systolic 67–157; BP diastolic 53–108
[2021-11-17] MEDS: ALBUTEROL SULFATE 2.5 MG/3 ML NEBU NEB SCH ×4 (00:54→19:25)
[2021-11-17] MEDS: IPRATROPIUM BROMIDE 0.5 MG/2.5 ML NEBU NEB SCH ×4 (00:54→19:25)
[2021-11-17] MEDS: PHENYLEPHRINE IV 100 MG in IV NORMAL SALINE 240 ML IV PRN ×2 (01:13→15:08)
[2021-11-17] MEDS: BLOOD SUGAR DIAGNOSTIC 1 EACH STRIP VI SCH ×6 (04:15→23:55)
--- NOTE | 2021-11-17 04:30 | NUR ---
Patient noted to have dark, green, loose stool. Stool sent for C diff. Flexiseal inserted.
[2021-11-17] MEDS: CEFEPIME HCL 1 G in IV DEXTROSE 5% 50 ML IV SCH ×3 (05:04→20:55)
[2021-11-17 05:16] LABS: HEMATOCRIT 43.7 % (36.7-47.1); MEAN CORPUSCULAR HEMOGLOBIN 36.7 uug (23.8-33.4); MEAN CORPUSCULAR VOLUME 106.7 fL (73.0-96.2); PLATELET COUNT (AUTO) 319 K/uL (152-348)
[2021-11-17] MEDS: PANTOPRAZOLE ORAL SUSPENSION 40 MG SUSPDR.PKT NG SCH (05:25)
[2021-11-17 05:28] LABS: CREATININE 0.7 mg/dL (0.6-1.3); MAGNESIUM 2.2 mg/dL (1.8-2.4); PHOSPHOROUS 2.7 mg/dL (2.5-4.9); POTASSIUM 3.6 mmol/L (3.5-5.1)
--- NOTE | 2021-11-17 06:00 | NUR ---
TF Jevity 1.2 off [id number].
[2021-11-17] MEDS: PROPOFOL 100 ML IV PRN ×2 (07:26→20:08)
[2021-11-17] MEDS: CULTURELLE CAPSULE NG SCH ×2 (08:16→20:08)
[2021-11-17] MEDS: CLOPIDOGREL 75 MG TABLET NG SCH (08:16)
[2021-11-17] MEDS: levETIRAcetam IV 1,000 MG in IV DEXTROSE 5% 100 ML IV SCH ×2 (08:17→20:55)
[2021-11-17] MEDS: ACETAMINOPHEN 650 MG/20.3 ML LIQUID UDC NG PRN ×2 (08:18→20:49)
[2021-11-17] MEDS: GABAPENTIN 300 MG CAPSULE NG SCH ×3 (08:18→16:17)
[2021-11-17] MEDS: THIAMINE HCL 100 MG TABLET NG SCH (08:22)
[2021-11-17] MEDS: MORPHINE SULFATE 2 MG/1 ML DISP.SYRIN IV PRN (10:56)
[2021-11-17] MEDS: IV 10% DEXTROSE 1,000 ML IV PRN (15:08)
[2021-11-17] MEDS: ATORVASTATIN 40 MG TABLET NG SCH (20:08)
[2021-11-17] MEDS: ENOXAPARIN SODIUM 40 MG/0.4 ML DISP.SYRIN SQ SCH (20:09)
[2021-11-18] VITALS (51 sets, daily range): BP systolic 62–159; BP diastolic 48–111
[2021-11-18] MEDS: ALBUTEROL SULFATE 2.5 MG/3 ML NEBU NEB SCH ×4 (01:23→19:07)
[2021-11-18] MEDS: IPRATROPIUM BROMIDE 0.5 MG/2.5 ML NEBU NEB SCH ×4 (01:23→19:07)
[2021-11-18] MEDS: PROPOFOL 100 ML IV PRN (02:55)
[2021-11-18] MEDS: BLOOD SUGAR DIAGNOSTIC 1 EACH STRIP VI SCH ×6 (04:15→23:47)
[2021-11-18 05:21] LABS: HEMATOCRIT 38.1 % (36.7-47.1); MEAN CORPUSCULAR HEMOGLOBIN 36.4 uug (23.8-33.4); MEAN CORPUSCULAR VOLUME 106.5 fL (73.0-96.2); PLATELET COUNT (AUTO) 321 K/uL (152-348)
[2021-11-18 05:23] LABS: CARBON DIOXIDE 27 mmol/L (21-32); CHLORIDE 107 mmol/L (98-107); CREATININE 0.6 mg/dL (0.6-1.3); GLUCOSE 140 mg/dL (74-106); MAGNESIUM 1.9 mg/dL (1.8-2.4); PHOSPHOROUS 3.5 mg/dL (2.5-4.9); POTASSIUM 3.5 mmol/L (3.5-5.1); UREA NITROGEN, BLOOD 7 mg/dL (7-18)
[2021-11-18] MEDS: PANTOPRAZOLE ORAL SUSPENSION 40 MG SUSPDR.PKT NG SCH (05:54)
[2021-11-18 06:34] LABS: ABG BASE EXCESS -0.2 mmol/L; ABG HCO3 23.6 mmol/L; ABG PCO2 36.2 mmHg (35.0-45.0); ABG PH 7.432 (7.350-7.450); ABG PO2 318.9 mmHg (75.0-100.0); ABG SITE LEFT RADIAL; COHb 0.3 % (0.5-1.5); MetHb 0.5 % (0.0-1.5); O2Hb 98.9 % (94.0-97.0); VENT MODE VENT - A/C; VT, ABG 450 mL
--- NOTE | 2021-11-18 06:50 | NUR ---
patient had low grade fever overnight tylenol given. titrated off neosynephrine and needed to be restarted again. patient currently on neosynephrine 0.2 mcg bp is with in limits to titrate off again. will endorse to morning shift to continue titrate off.
[2021-11-18] MEDS ORDERED: POTASSIUM CHLORIDE 20 MEQ POWDER PACKET NG ONE (07:30)
--- NOTE | 2021-11-18 08:28 | NUR ---
Dr. Steele at bedside, discussed HR, sedation and pain. This development writer was notified to contact him in a few hours after Sedation is off to discuss patient alertness and to possibly start patient on provigil.
[2021-11-18] MEDS: levETIRAcetam 500 MG/5 ML LIQUID UDC NG SCH ×2 (08:35→20:09)
[2021-11-18] MEDS: GABAPENTIN 300 MG CAPSULE NG SCH ×3 (08:35→17:52)
[2021-11-18] MEDS: CLOPIDOGREL 75 MG TABLET NG SCH (08:37)
[2021-11-18] MEDS: THIAMINE HCL 100 MG TABLET NG SCH (08:37)
[2021-11-18] MEDS: CULTURELLE CAPSULE NG SCH ×2 (08:37→20:08)
[2021-11-18 12:20] LABS: *BILIRUBIN,URIN NEGATIVE (NEGATIVE); *CLARITY,URINE CLEAR (CLEAR); *COLOR,URINE YELLOW (YELLOW); *KETONES,URINE NEGATIVE (NEGATIVE); *UROBILINOGEN,URINE 0.2 E.U./dl (NORMAL); LEUKOCYTE ESTERASE ,URINE NEGATIVE (NEGATIVE); NITRITE, URINE NEGATIVE (NEGATIVE); UGLUCOSE NEGATIVE (NEGATIVE)
[2021-11-18 12:21] LABS: *BLOOD, URINE TRACE (NEGATIVE)
[2021-11-18] MEDS: MORPHINE SULFATE 2 MG/1 ML DISP.SYRIN IV PRN ×2 (12:59→21:30)
[2021-11-18] MEDS: ACETAMINOPHEN 650 MG/20.3 ML LIQUID UDC NG PRN (15:30)
[2021-11-18 19:08] LABS: BACTERIA,URINE NONE SEEN /HPF (NONE SEEN); RBC,URINE 0-3 /HPF (0-3); SQUAMOUS EPITHELIAL CELL,UR NONE SEEN /HPF (NONE SEEN); WBC,URINE 0-3 /HPF (0-3)
--- NOTE | 2021-11-18 19:30 | NUR ---
PATIENT OPEN EYES SPONTANEOUSLY DOESN'T FOLLOW COMMANDS,EXTREMITIES VERY FLACCID UPPER AND LOWER .PATIENT IN BED ORALLY INTUBATED ON AC12,450,FIO2 28% PEEP 5.RESPIRATORY THERAPIST AT B/S SUCTIONING PATIENT AND DOING ORAL CARE . PATIENT TOLERATING VENT SETTING OFF SEDATION SATURATION 100% RR12.MODERATE SECRETIONS ORALLY AND VERY MINIMAL VIA ETT ,THIN TO THICK WHITISH TO ARORA SECRETIONS . HOB UP .TF JEVITY AT 75 ML/HR VIA THE LEFT NGT GOAL REACH ,TOLERATING TF 10 ML/RESIDUAL . RECTAL TUBE IN PLACED WITH BROWNISH LIQUID STOOL AND KUO CATHETER IN PLACED WITH YELLOWISH URINE . CONTINUE TO MONITOR V/S AND LEVELS OF COMFORT .
--- NOTE | 2021-11-18 20:04 | NUR ---
FINGERSTICK DONE BLOOD SUGAR 120 . NO INSULIN SLIDING SCALE GIVEN .
[2021-11-18] MEDS: ATORVASTATIN 40 MG TABLET NG SCH (20:08)
[2021-11-18] MEDS: ENOXAPARIN SODIUM 40 MG/0.4 ML DISP.SYRIN SQ SCH (20:10)
--- NOTE | 2021-11-18 21:37 | NUR ---
GIVEN PRN MORPHINE PATIENT RR 21 AND HR 123, FACIAL GRIMACING WILL CONTINUE O MONITOR FOR PAIN LEVELS PATIENT INTUBATED AND UNABLE TO FOLLOW COMMANDS .
--- NOTE | 2021-11-18 22:00 | NUR ---
PM CARE DONE ,BATH PATIENT CHANGED SOILED LINENS AND GOWN .IRRIGATED RECTAL TUBE WITH LIQUID STOOL .Z GUARD APPLIED TO BILATERAL GROIN AND SACRAL AREA MEPILEX PLACED SACRAL AREA.TURNED AND REPOSITION PATIENT OFFLOADED BACK WITH PILLOWS AND UPPER AND LOWER EXTREMITIES WITH PILLOWS .HEELS OFFLOADED.
[2021-11-18] MEDS: LORAZEPAM 2 MG/1 ML VIAL IV PRN (23:48)
[2021-11-18] MEDS: REMEDY ESSENTIAL ZINC PASTE 113 GM TP PRN (23:49)
--- NOTE | 2021-11-18 23:54 | NUR ---
patient shivering and shaking HR 114 TO 116 RR 16 TO 18,GIVEN PRN ATIVAN ,continue to monitor s/s of agitation .
[2021-11-19] VITALS (27 sets, daily range): BP systolic 89–162; BP diastolic 57–107
[2021-11-19] MEDS: ACETAMINOPHEN 650 MG/20.3 ML LIQUID UDC NG PRN ×3 (01:18→18:48)
[2021-11-19] MEDS: ALBUTEROL SULFATE 2.5 MG/3 ML NEBU NEB SCH ×4 (01:32→20:57)
[2021-11-19] MEDS: IPRATROPIUM BROMIDE 0.5 MG/2.5 ML NEBU NEB SCH ×4 (01:32→20:57)
[2021-11-19] MEDS: BLOOD SUGAR DIAGNOSTIC 1 EACH STRIP VI SCH ×6 (04:16→21:10)
[2021-11-19 05:32] LABS: ALANINE AMINOTRANSFERASE 41 U/L (16-63); ALKALINE PHOSPHATASE 200 U/L (50-136); ASPARTATE AMINOTRANSFERASE 63 U/L (15-37); BILIRUBIN,TOTAL 0.3 mg/dL (0.2-1.0); CARBON DIOXIDE 29 mmol/L (21-32); CHLORIDE 104 mmol/L (98-107); CREATININE 0.6 mg/dL (0.6-1.3); GLUCOSE 134 mg/dL (74-106); MAGNESIUM 1.9 mg/dL (1.8-2.4); PHOSPHOROUS 3.6 mg/dL (2.5-4.9); POTASSIUM 3.3 mmol/L (3.5-5.1); TOTAL PROTEIN, SERUM 6.1 g/dL (6.4-8.2); UREA NITROGEN, BLOOD 7 mg/dL (7-18)
[2021-11-19 05:41] LABS: HEMATOCRIT 35.7 % (36.7-47.1); MEAN CORPUSCULAR HEMOGLOBIN 36.7 uug (23.8-33.4); MEAN CORPUSCULAR VOLUME 106.4 fL (73.0-96.2); PLATELET COUNT (AUTO) 407 K/uL (152-348)
[2021-11-19] MEDS: PANTOPRAZOLE ORAL SUSPENSION 40 MG SUSPDR.PKT NG SCH (06:32)
[2021-11-19] MEDS: MODAFINIL 100 MG TABLET NG SCH (06:33)
[2021-11-19] MEDS: POTASSIUM CHLORIDE 20 MEQ POWDER PACKET GT SCH ×2 (08:04→12:19)
[2021-11-19] MEDS: THIAMINE HCL 100 MG TABLET NG SCH (08:06)
[2021-11-19] MEDS: GABAPENTIN 300 MG CAPSULE NG SCH ×3 (08:06→17:06)
[2021-11-19] MEDS: CULTURELLE CAPSULE NG SCH ×2 (08:06→21:11)
[2021-11-19] MEDS: CLOPIDOGREL 75 MG TABLET NG SCH (08:06)
[2021-11-19] MEDS: levETIRAcetam 500 MG/5 ML LIQUID UDC NG SCH ×2 (08:27→21:12)
[2021-11-19] MEDS ORDERED: METOPROLOL SUCCINATE XL 25 MG TAB.SR.24H PO SCH ×2 (09:25→09:30)
[2021-11-19] MEDS ORDERED: IV NS 1000 ML 1,000 ML IV ONE (09:30)
[2021-11-19] MEDS: METOPROLOL TARTRATE 25 MG TABLET NG SCH ×2 (10:35→21:11)
--- NOTE | 2021-11-19 19:30 | NUR ---
ROUNDS MADE PATIENT IN BED ,ORALLY INTUBATED ON AC 12/450/28% PEEP 5,MINIMAL SECRETIONS VIA THE ETT ,MODERATE TO LARGE VIA THE ORAL ,WHITISH TO ARORA IN COLOR. RR 21 TO 22 SATURATION 99 TO 100% ,ORAL CARE DONE.LEFT LEFT NARE NGT ON JEVITY 1.2 AT 75 ML/HR ,TOLERATING TF VERY SMALL AMT, OF RESIDUAL 10 ML.HOB UP ASPIRATION PRECAUTION OBSERVED. RECTAL TEMP 100.1 -DAY SHIFT JUST GAVE PATIENT TYLENOL AT ABOUT 18:48 ON COOLING BLANKET . F/C AND RECTAL TUBE (FLEXISEAL IN PLACE).
--- NOTE | 2021-11-19 20:30 | NUR ---
COLLECTED COVID SWAB FOR COVID 19 ANTIGEN AND INFORMED RESPIRATORY THERAPIST TO GET SPUTUM FOR C/S .
--- NOTE | 2021-11-19 20:30 | NUR ---
COVID 19 ANTIGEN RESULT IS NEGATIVE . SPUTUM FOR GRAM STAIN PENDING .
--- NOTE | 2021-11-19 21:00 | NUR ---
TURNED AND REPOSITION PATIENT OFF LOADED BACK WITH PILLOWS Z GUARD APPLIED TO SACRAL AND BILATERAL GROIN AREA BUE AND BLE ELEVATED WITH PILLOWS HEELS OFF BED .
[2021-11-19] MEDS: ATORVASTATIN 40 MG TABLET NG SCH (21:12)
[2021-11-19] MEDS: ENOXAPARIN SODIUM 40 MG/0.4 ML DISP.SYRIN SQ SCH (21:14)
[2021-11-19] MEDS: MORPHINE SULFATE 2 MG/1 ML DISP.SYRIN IV PRN (21:16)
--- NOTE | 2021-11-19 21:16 | NUR ---
MORPHINE 2 MP IVP GIVEN C/O HR HIGH AND RR .SEE EMAR ADMINISTRATION RECORD .
[2021-11-19] MEDS: REMEDY ESSENTIAL ZINC PASTE 113 GM TP PRN (21:23)
--- NOTE | 2021-11-19 22:30 | NUR ---
TURNED AND REPOSITION PATIENT ,OFFLOADED BACK AND ELEVATED BUE AND BLE WITH PILLOW .
[2021-11-20] VITALS (24 sets, daily range): BP systolic 106–156; BP diastolic 79–111
[2021-11-20] MEDS: BLOOD SUGAR DIAGNOSTIC 1 EACH STRIP VI SCH ×8 (00:04→23:34)
[2021-11-20] MEDS: ACETAMINOPHEN 650 MG/20.3 ML LIQUID UDC NG PRN ×3 (00:26→18:13)
--- NOTE | 2021-11-20 01:00 | NUR ---
AM CARE DONE ,BATH PATIENT CHANGED SOILED LINENS AND GOWN ,ORAL CARE DONE SUCTION VIA ETT AND VIA MOUTH . KUO CARE DONE ,IRRIGATED RECTAL TUBE CHANGED RECTAL BAG.
[2021-11-20] MEDS: ALBUTEROL SULFATE 2.5 MG/3 ML NEBU NEB SCH ×4 (01:13→22:50)
[2021-11-20] MEDS: IPRATROPIUM BROMIDE 0.5 MG/2.5 ML NEBU NEB SCH ×4 (01:13→22:49)
[2021-11-20] MEDS: MORPHINE SULFATE 2 MG/1 ML DISP.SYRIN IV PRN ×5 (01:36→23:36)
--- NOTE | 2021-11-20 03:17 | NUR ---
PATIENT ON CONT SIDHU VENT WITH 7.5 ET/TUBE IN PLACE AND SECURED WITH ANCHOR FAST, MOVE Q2 HOURS, PT DOES ASSIST 19-24RR, APPROX, CHANGES IN PIP , GETS LOW AT TIMES, GOOD OXYGENATIONS, PT WITH GOOD COUGH, TRIES TO SLIGHTLY OPEN EYES, WITH NO TRACKING, SPUTUM SAMPLE WAS DONE, AND HANDED TO TALAT Goode , [facility] INLINE X 2, ALL VENT ALARMS GOOD, NO VENT CHANGES MADE, ABG DUE BEFORE 0700. Shruti PEREZP Addendum: 11/20/21 at 0321 by CHEMA VOGEL RT Amended: Links added.
--- NOTE | 2021-11-20 04:00 | NUR ---
FINGERSTICK DONE RESULT 87 MG/DL .NO ACTION NEEDED.
--- NOTE | 2021-11-20 04:15 | NUR ---
PROCUREMENT CONSULTANT AT B/S FOR AM LABS . BLOOD DRAWS FROM PATIENT RIGHT TRIPLE LUMEN CENTRAL LINE DONE ASEPTICALLY ,FLUSHED ALL PORTS .
--- NOTE | 2021-11-20 05:00 | NUR ---
XRAY AT B/S FOR PATIENT PORTABLES CHEST XRAY .
[2021-11-20 05:02] LABS: HEMATOCRIT 39.8 % (36.7-47.1); MEAN CORPUSCULAR HEMOGLOBIN 36.5 uug (23.8-33.4); PLATELET COUNT (AUTO) 499 K/uL (152-348)
[2021-11-20 05:12] LABS: CARBON DIOXIDE 27 mmol/L (21-32); CHLORIDE 100 mmol/L (98-107); CREATININE 0.6 mg/dL (0.6-1.3); GLUCOSE 131 mg/dL (74-106); MAGNESIUM 1.8 mg/dL (1.8-2.4); PHOSPHOROUS 4.3 mg/dL (2.5-4.9); POTASSIUM 3.9 mmol/L (3.5-5.1); UREA NITROGEN, BLOOD 8 mg/dL (7-18)
--- NOTE | 2021-11-20 05:30 | NUR ---
NOTICED PATIENT OPENING BILATERAL EYES SPANEOUSLY ON AND OFF ,SLUGGISH REACTING PUPILS 3 CM IN SIZE.DOESN'T NOT TRACK , DOES NOT FOLLOW COMMANDS.
[2021-11-20] MEDS: PANTOPRAZOLE ORAL SUSPENSION 40 MG SUSPDR.PKT NG SCH (05:58)
[2021-11-20] MEDS: MODAFINIL 100 MG TABLET NG SCH (05:58)
--- NOTE | 2021-11-20 06:07 | NUR ---
RESPIRATORY THERAPIST AT B/S FOR PATIENT AM ABG .
[2021-11-20 06:19] LABS: ABG BASE EXCESS 0.2 mmol/L; ABG HCO3 24.1 mmol/L; ABG PCO2 36.8 mmHg (35.0-45.0); ABG PH 7.434 (7.350-7.450); ABG PO2 94.3 mmHg (75.0-100.0); ABG SITE RIGHT RADIAL; ABG TOTAL HEMOGLOBIN 14.9 G/dL (13.5-18.0); COHb 0.4 % (0.5-1.5); MetHb 0.1 % (0.0-1.5); O2Hb 96.8 % (94.0-97.0); VENT MODE VENT - A/C; VT, ABG 450 mL
--- NOTE | 2021-11-20 07:10 | NUR ---
Received pt. on Ventilator: ATT. 7.5 23LL on A/C of 12, Tv. 450, FIO2 28%, PEEP +5. tolerating setting with saturation above 95% No tachypnea noted RR of 15-21. Cardiac-ware on sinus tachycardia 120-128. low-grade temperature 99.9 cooling measures in progress. Ng with feeding to be resumed. rivas to gravity. IV line patent.
--- NOTE | 2021-11-20 08:00 | NUR ---
Patient seen by husker operator Dr. Lang report give orders to start NS at 150cc/hr until new order received and implemented.
--- NOTE | 2021-11-20 08:00 | NUR ---
Pulmonary services, Dr. Bowman in the unit to see and examine pt. report given orders to continue with care plan received.
[2021-11-20] MEDS ORDERED: POTASSIUM CHLORIDE 20 MEQ POWDER PACKET GT ONE (08:15)
[2021-11-20] MEDS: CLOPIDOGREL 75 MG TABLET NG SCH (08:49)
[2021-11-20] MEDS: THIAMINE HCL 100 MG TABLET NG SCH (08:49)
[2021-11-20] MEDS: GABAPENTIN 300 MG CAPSULE NG SCH ×3 (08:49→16:37)
[2021-11-20] MEDS: CULTURELLE CAPSULE NG SCH ×2 (08:49→20:22)
[2021-11-20] MEDS: METOPROLOL TARTRATE 50 MG TABLET PO SCH ×2 (08:50→20:23)
[2021-11-20] MEDS: levETIRAcetam 500 MG/5 ML LIQUID UDC NG SCH ×2 (08:54→20:22)
[2021-11-20] MEDS ORDERED: METOPROLOL TARTRATE 25 MG TABLET NG SCH (09:00)
[2021-11-20] MEDS: LORAZEPAM 2 MG/1 ML VIAL IV PRN ×3 (09:31→20:28)
--- NOTE | 2021-11-20 11:35 | NUR ---
Tc Reynoso in to examine. pt.
[2021-11-20] MEDS: IV NS 1000 ML 1,000 ML IV PRN ×2 (12:22→23:30)
[2021-11-20] MEDS: LOPERAMIDE HCL 2 MG CAPSULE NG PRN (13:13)
--- NOTE | 2021-11-20 18:15 | NUR ---
Patient spiking 100.4 fever and HR of 138-140's morphine and tylenol administered.
[2021-11-20] MEDS: IV NORMAL SALINE 250 ML IV PRN (19:11)
--- NOTE | 2021-11-20 19:30 | NUR ---
PATIENT WITH LOW GRADE TEMPERATURE 100.6 F RECTALLY. DAY RN JUST GAVE PATIENT TYLENOL ,PATIENT ON COOLING BLANKET TEMP SET ACCORDING TO PATIENT TEMPERATURE .
[2021-11-20] MEDS: ATORVASTATIN 40 MG TABLET NG SCH (20:22)
--- NOTE | 2021-11-20 20:22 | NUR ---
LEFT NARE NGT WITH JEVITY 1.2 IN PROGRESS CHECKED RESIDUAL VERY MINIMAL 20 ML, RATE 75 ML/HR , DUE MEDICATION CRUSHED GIVEN VIA NGT ,FLUSHED PATENT . RECTAL TUBE IN PLACED WITH LIQUID STOOL .COLLECTED STOOL FOR CULTURE SEND TO LAB.
[2021-11-20] MEDS: ENOXAPARIN SODIUM 40 MG/0.4 ML DISP.SYRIN SQ SCH (20:24)
--- NOTE | 2021-11-20 20:24 | NUR ---
FINGERSTICK DONE PATIENT B/S 130 MG/DL. NO SLIDING SCALE GIVEN.
--- NOTE | 2021-11-20 22:12 | NUR ---
SUCTION PATIENT VIA ETT AND VIA MOUTH VERY SMALL AMT ETT AND ORALLY MODERATE TO LARGE . HOB UP AND ASPIRATION PRECAUTION OBSERVED .
[2021-11-21] VITALS (27 sets, daily range): BP systolic 79–171; BP diastolic 54–113
[2021-11-21] MEDS: IPRATROPIUM BROMIDE 0.5 MG/2.5 ML NEBU NEB SCH ×4 (01:53→19:23)
[2021-11-21] MEDS: ALBUTEROL SULFATE 2.5 MG/3 ML NEBU NEB SCH ×4 (01:53→19:23)
--- NOTE | 2021-11-21 01:55 | NUR ---
PATIENT REMAINS ON SIDHU VENT WITH ET/TUBE IN PLACE AND SECURED WITH ANCHOR FAST, MOVE Q2 HOURS, SEETINGS, SAME NO VENT CHANGES MADE, CHANGE HME, SUCTIONED LIGHT PALE YELL TINGE SECRETIONS, NEB INLINE Q6 , PT HAS ALOT OF DIFFERENT CHANGES IN PIP , GOES HIGH THEN VERY LOW, PT DOES ASSIST .Shruti VOGEL AUTOMOBILE ACCESSORIES INSTALLER Addendum: 11/21/21 at 0159 by CHEMA VOGEL RT Amended: Links added.
[2021-11-21] MEDS: ACETAMINOPHEN 650 MG/20.3 ML LIQUID UDC NG PRN ×3 (03:47→19:39)
[2021-11-21] MEDS: BLOOD SUGAR DIAGNOSTIC 1 EACH STRIP VI SCH ×6 (03:49→23:42)
--- NOTE | 2021-11-21 04:00 | NUR ---
GIVEN TYLENOL C/O TEMPERATURE OF 100.8 F RECTALLY .COOLING BLANKET TURNED ON.
[2021-11-21 04:59] LABS: HEMATOCRIT 35.8 % (36.7-47.1); MEAN CORPUSCULAR HEMOGLOBIN 36.6 uug (23.8-33.4); MEAN CORPUSCULAR VOLUME 104.9 fL (73.0-96.2); PLATELET COUNT (AUTO) 483 K/uL (152-348)
[2021-11-21 05:07] LABS: CREATININE 0.7 mg/dL (0.6-1.3); MAGNESIUM 1.8 mg/dL (1.8-2.4); PHOSPHOROUS 3.2 mg/dL (2.5-4.9); POTASSIUM 3.6 mmol/L (3.5-5.1)
--- NOTE | 2021-11-21 05:30 | NUR ---
MORNING CARE DONE ,BATH PATIENT WITH COLD WATER (TEMP 100.6),CHANGED SOILED LINENS AND GOWN .OFFLOADED BACK WITH PILLOWS AND BUE AND BLE ELEVATED WITH PILLOWS. KUO CARE DONE AND ORAL CARE DONE .
[2021-11-21] MEDS: MODAFINIL 100 MG TABLET NG SCH (05:45)
[2021-11-21] MEDS: PANTOPRAZOLE ORAL SUSPENSION 40 MG SUSPDR.PKT NG SCH (05:45)
--- NOTE | 2021-11-21 07:00 | NUR ---
Received pt. on ventilator ETT 7.5 23LL A/C 12, TV450, FIO2 28%. RR 18. Neuro-ware pt opening eyes spontaneously, does not track. pupils LEI, weak cough and gag reflex. Cardiac-wrae pt. on sinus tachycardia. sbp within desire limits. NG patent placement confirmed via auscultation feeding to be resumed at 75cc/hr, with zero residual at this time. Andrade to gravity. Safety measures on at all times. Will continue with care plan.
[2021-11-21] MEDS: PHENYLEPHRINE IV 100 MG in IV NORMAL SALINE 240 ML IV PRN (07:12)
[2021-11-21] MEDS: METOPROLOL TARTRATE 50 MG TABLET PO SCH ×2 (08:05→20:08)
--- NOTE | 2021-11-21 08:05 | NUR ---
Patient seen by Pressurizer Dr. Lang, report given orders for head CT. received.
[2021-11-21] MEDS: CLOPIDOGREL 75 MG TABLET NG SCH (08:06)
[2021-11-21] MEDS: GABAPENTIN 300 MG CAPSULE NG SCH ×3 (08:06→16:13)
[2021-11-21] MEDS: THIAMINE HCL 100 MG TABLET NG SCH (08:06)
[2021-11-21] MEDS: levETIRAcetam 500 MG/5 ML LIQUID UDC NG SCH ×2 (08:07→20:10)
[2021-11-21] MEDS: CULTURELLE CAPSULE NG SCH ×2 (08:07→20:26)
[2021-11-21] MEDS ORDERED: POTASSIUM CHLORIDE 20 MEQ POWDER PACKET NG ONE (08:15)
--- NOTE | 2021-11-21 08:15 | NUR ---
Patient seen by mud analysis supervisor Dr. Bowman report given orders to continue with care plan received.
[2021-11-21] MEDS: JEVITY 1.2 1000 ML LIQUID GT PRN (08:33)
[2021-11-21] MEDS: LORAZEPAM 2 MG/1 ML VIAL IV PRN ×2 (08:44→13:15)
[2021-11-21] MEDS: IV NS 1000 ML 1,000 ML IV PRN ×2 (08:45→17:28)
--- NOTE | 2021-11-21 09:04 | NUR ---
Pt. taken down for head CT at this time vitals of HR of 124, SBP of 127/86.saturation of 97%. taken down via bed, with paint laboratory technician and RT Marck.
--- NOTE | 2021-11-21 09:29 | NUR ---
Patient back from procedure HR 109, sbp 136/74. RR14. procedure un-eventful.
--- NOTE | 2021-11-21 11:43 | NUR ---
Patient seen by attending physician, Dr. Esteban Marroquin. report given orders received and implemented.
[2021-11-21] MEDS ORDERED: MEROPENEM 1 G in IV NORMAL SALINE 100 ML IV SCH (12:00)
[2021-11-21] MEDS: MORPHINE SULFATE 2 MG/1 ML DISP.SYRIN IV PRN ×2 (12:50→17:29)
[2021-11-21] MEDS: MICAFUNGIN SODIUM 100 MG in IV NORMAL SALINE 100 ML IV SCH (12:55)
[2021-11-21] MEDS: LOPERAMIDE HCL 2 MG CAPSULE NG PRN (13:12)
--- NOTE | 2021-11-21 13:28 | NUR ---
From 1300 pt with consistently above 160's and in the low 170's. patient noted to be restless with labor breathing. Patient received, ativan, an previously medicated with morphine tylenol for low grade fever with little to no response to treatment at this time backing up ventilator. Hvac Installation Technician Dr. Lang called and report given pt's current heart rate in the 140's sinus tachycardia, sbp of 170/113. RR 28. Orders to continue with care plan received.
[2021-11-21] MEDS: VANCOMYCIN IV 1,000 MG in IV DEXTROSE 5% 250 ML IV SCH ×2 (13:58→21:51)
[2021-11-21] MEDS ORDERED: VANCOMYCIN IV 1,000 MG in IV DEXTROSE 5% 250 ML IV SCH (14:00)
[2021-11-21] MEDS ORDERED: LORAZEPAM 2 MG/1 ML VIAL IV PRN (16:30)
[2021-11-21] MEDS: MIDAZOLAM HCL 50 MG in IV NORMAL SALINE 40 ML IV PRN (17:02)
--- NOTE | 2021-11-21 19:00 | NUR ---
RESPIRATORY THERAPIST AT B/S GAVE PATIENT BREATHING TREATMENT .SUCTION VIA THE ETT AND VIA MOUTH .MINIMAL VIA ETT AND MODERATE TO LARGE VIA MOUTH WHITISH IN COLOR AND THIN TO THICK .RR 44 HR 144 TO 135.TEMPERATURE 100.0 RECTALLY . GIVEN TYLENOL PRN FOR TEMP AND INCREASE VERSED DRIP FOR SEDATION AND CONTINUE TO MONITOR V/S.EE EMAR AND SPREADSHEET .
[2021-11-21] MEDS: MEROPENEM 1 G in IV NORMAL SALINE 100 ML IV SCH (19:38)
[2021-11-21] MEDS: ATORVASTATIN 40 MG TABLET NG SCH (20:08)
[2021-11-21] MEDS: ENOXAPARIN SODIUM 40 MG/0.4 ML DISP.SYRIN SQ SCH (20:20)
--- NOTE | 2021-11-21 22:00 | NUR ---
turned and reposition patient ,offloaded back with pillow .hob up .
[2021-11-21] MEDS: REMEDY ESSENTIAL ZINC PASTE 113 GM TP PRN (23:42)
[2021-11-22] VITALS (23 sets, daily range): BP systolic 80–153; BP diastolic 51–101
--- NOTE | 2021-11-22 | NUR ---
fingerstick done ,prn Tylenol given c/o temp ,morphine given as needed see emar .
[2021-11-22] MEDS: ACETAMINOPHEN 650 MG/20.3 ML LIQUID UDC NG PRN ×2 (00:38→16:08)
[2021-11-22] MEDS: MORPHINE SULFATE 2 MG/1 ML DISP.SYRIN IV PRN ×3 (00:38→20:38)
[2021-11-22] MEDS: IV NS 1000 ML 1,000 ML IV PRN ×2 (00:45→23:10)
[2021-11-22] MEDS: ALBUTEROL SULFATE 2.5 MG/3 ML NEBU NEB SCH ×5 (00:51→19:30)
[2021-11-22] MEDS: IPRATROPIUM BROMIDE 0.5 MG/2.5 ML NEBU NEB SCH ×4 (00:51→19:24)
[2021-11-22] MEDS: MIDAZOLAM HCL 50 MG in IV NORMAL SALINE 40 ML IV PRN ×2 (01:21→14:59)
[2021-11-22] MEDS: MEROPENEM 1 G in IV NORMAL SALINE 100 ML IV SCH ×3 (04:28→19:57)
--- NOTE | 2021-11-22 04:30 | NUR ---
bath patient changed soiled linens and gown .
[2021-11-22] MEDS: BLOOD SUGAR DIAGNOSTIC 1 EACH STRIP VI SCH ×6 (04:35→23:15)
[2021-11-22] MEDS: VANCOMYCIN IV 1,000 MG in IV DEXTROSE 5% 250 ML IV SCH ×2 (05:37→16:11)
[2021-11-22] MEDS: MODAFINIL 100 MG TABLET NG SCH (05:37)
[2021-11-22] MEDS: PANTOPRAZOLE ORAL SUSPENSION 40 MG SUSPDR.PKT NG SCH (05:37)
[2021-11-22 06:00] LABS: HEMATOCRIT 35.7 % (36.7-47.1); MEAN CORPUSCULAR HEMOGLOBIN 36.3 uug (23.8-33.4); MEAN CORPUSCULAR VOLUME 104.5 fL (73.0-96.2); PLATELET COUNT (AUTO) 531 K/uL (152-348)
[2021-11-22 06:11] LABS: ALANINE AMINOTRANSFERASE 54 U/L (16-63); ALKALINE PHOSPHATASE 232 U/L (50-136); ASPARTATE AMINOTRANSFERASE 84 U/L (15-37); BILIRUBIN,DIRECT 0.2 mg/dL (0.0-0.2); BILIRUBIN,TOTAL 0.4 mg/dL (0.2-1.0); CARBON DIOXIDE 26 mmol/L (21-32); CHLORIDE 100 mmol/L (98-107); CREATININE 0.5 mg/dL (0.6-1.3); GLUCOSE 101 mg/dL (74-106); PHOSPHOROUS 3.2 mg/dL (2.5-4.9); POTASSIUM 4.1 mmol/L (3.5-5.1); UREA NITROGEN, BLOOD 11 mg/dL (7-18); VANCOMYCIN,TROUGH 21.9 ug/mL (12.0-20.0)
[2021-11-22] MEDS: CULTURELLE CAPSULE NG SCH ×2 (09:49→20:06)
[2021-11-22] MEDS: GABAPENTIN 300 MG CAPSULE NG SCH ×3 (09:49→16:08)
[2021-11-22] MEDS: THIAMINE HCL 100 MG TABLET NG SCH (09:49)
[2021-11-22] MEDS: levETIRAcetam 500 MG/5 ML LIQUID UDC NG SCH ×2 (09:50→20:06)
[2021-11-22] MEDS: METOPROLOL TARTRATE 50 MG TABLET PO SCH ×2 (09:50→20:23)
[2021-11-22] MEDS: CLOPIDOGREL 75 MG TABLET NG SCH (09:50)
[2021-11-22] MEDS: MICAFUNGIN SODIUM 100 MG in IV NORMAL SALINE 100 ML IV SCH (12:13)
[2021-11-22] MEDS: ATORVASTATIN 40 MG TABLET NG SCH (20:07)
[2021-11-22] MEDS: ENOXAPARIN SODIUM 40 MG/0.4 ML DISP.SYRIN SQ SCH (20:08)
--- NOTE | 2021-11-22 20:29 | NUR ---
Patient received orally intubated on AC 12, 450, +5, 28% with E.T.Tube 7.5, ~23cm @ teeth. Settings tolerated well, high respiratory rate noted along side HR >120. Per RN, patient has a fever. Symptoms related to fever. No signs of respiratory distress noted. Albuterol treatment held @ 1930 hour. Atrovent tolerated well, no adverse reactions noted. Moderate amounts of walden/beige secretions noted. Alarms reveiwed and are on/audible. Vent connected to red outlet, AMBUbag at bedside. Will continue to monitor throughout shift.
[2021-11-23] VITALS (22 sets, daily range): BP systolic 88–138; BP diastolic 53–93
--- NOTE | 2021-11-23 | NUR ---
incontinent of loose stool ,clean patient changed soiled linens and gown .perineal care done .turned and reposition patient
[2021-11-23] MEDS: MIDAZOLAM HCL 50 MG in IV NORMAL SALINE 40 ML IV PRN ×2 (00:42→08:47)
[2021-11-23] MEDS: ACETAMINOPHEN 650 MG/20.3 ML LIQUID UDC NG PRN ×4 (00:45→23:32)
[2021-11-23] MEDS: ALBUTEROL SULFATE 2.5 MG/3 ML NEBU NEB SCH ×4 (01:20→19:30)
[2021-11-23] MEDS: IPRATROPIUM BROMIDE 0.5 MG/2.5 ML NEBU NEB SCH ×4 (01:20→19:36)
[2021-11-23] MEDS: VANCOMYCIN IV 1,000 MG in IV DEXTROSE 5% 250 ML IV SCH ×3 (01:55→21:04)
--- NOTE | 2021-11-23 04:30 | NUR ---
morning care done ,bath patient .incontinent of stool ,soft to liquid stool large in amt . Andrade care done ,changed soiled linens and gown . turned and reposition ,offloaded back . elevated bue and ble with pillows.oral care done and suction via ett and via mouth .
[2021-11-23] MEDS: MEROPENEM 1 G in IV NORMAL SALINE 100 ML IV SCH ×3 (04:35→19:34)
[2021-11-23] MEDS: PANTOPRAZOLE ORAL SUSPENSION 40 MG SUSPDR.PKT NG SCH (05:34)
[2021-11-23] MEDS: MODAFINIL 100 MG TABLET NG SCH (05:34)
[2021-11-23 05:38] LABS: HEMATOCRIT 32.1 % (36.7-47.1); MEAN CORPUSCULAR HEMOGLOBIN 37.1 uug (23.8-33.4); MEAN CORPUSCULAR VOLUME 105.2 fL (73.0-96.2); PLATELET COUNT (AUTO) 555 K/uL (152-348)
[2021-11-23] MEDS: BLOOD SUGAR DIAGNOSTIC 1 EACH STRIP VI SCH ×4 (05:38→23:22)
[2021-11-23] MEDS: REMEDY ESSENTIAL ZINC PASTE 113 GM TP PRN (05:39)
[2021-11-23 05:46] LABS: CREATININE 0.8 mg/dL (0.6-1.3); MAGNESIUM 1.9 mg/dL (1.8-2.4); PHOSPHOROUS 3.2 mg/dL (2.5-4.9); POTASSIUM 3.6 mmol/L (3.5-5.1)
[2021-11-23] MEDS: GABAPENTIN 300 MG CAPSULE NG SCH ×3 (09:20→17:31)
[2021-11-23] MEDS: CLOPIDOGREL 75 MG TABLET NG SCH (09:20)
[2021-11-23] MEDS: THIAMINE HCL 100 MG TABLET NG SCH (09:20)
[2021-11-23] MEDS: CULTURELLE CAPSULE NG SCH ×2 (09:20→20:13)
[2021-11-23] MEDS: levETIRAcetam 500 MG/5 ML LIQUID UDC NG SCH ×2 (09:21→20:13)
[2021-11-23] MEDS: METOPROLOL TARTRATE 50 MG TABLET PO SCH ×2 (09:21→20:14)
[2021-11-23] MEDS: LOPERAMIDE HCL 2 MG CAPSULE NG PRN ×3 (09:34→23:33)
[2021-11-23] MEDS: IV NS 1000 ML 1,000 ML IV PRN ×2 (09:47→18:47)
[2021-11-23] MEDS: MICAFUNGIN SODIUM 100 MG in IV NORMAL SALINE 100 ML IV SCH (12:16)
[2021-11-23] MEDS: ATORVASTATIN 40 MG TABLET NG SCH (20:14)
[2021-11-23] MEDS: ENOXAPARIN SODIUM 40 MG/0.4 ML DISP.SYRIN SQ SCH (20:15)
[2021-11-24] VITALS (23 sets, daily range): BP systolic 80–149; BP diastolic 55–97
--- NOTE | 2021-11-24 | NUR ---
Tylenol per NGT given. AM care done, liquid stool noted large in amt.
[2021-11-24] MEDS: MIDAZOLAM HCL 50 MG in IV NORMAL SALINE 40 ML IV PRN ×2 (00:13→12:43)
[2021-11-24] MEDS: ALBUTEROL SULFATE 2.5 MG/3 ML NEBU NEB SCH ×4 (01:06→19:24)
[2021-11-24] MEDS: IPRATROPIUM BROMIDE 0.5 MG/2.5 ML NEBU NEB SCH ×4 (01:06→19:25)
[2021-11-24] MEDS: IV NS 1000 ML 1,000 ML IV PRN ×2 (01:52→09:19)
[2021-11-24] MEDS: MEROPENEM 1 G in IV NORMAL SALINE 100 ML IV SCH ×3 (03:32→19:12)
[2021-11-24] MEDS: BLOOD SUGAR DIAGNOSTIC 1 EACH STRIP VI SCH ×3 (05:31→17:18)
[2021-11-24] MEDS: PANTOPRAZOLE ORAL SUSPENSION 40 MG SUSPDR.PKT NG SCH (05:44)
[2021-11-24] MEDS: MODAFINIL 100 MG TABLET NG SCH (05:44)
[2021-11-24 06:10] LABS: ABG BASE EXCESS -1.6 mmol/L; ABG HCO3 20.8 mmol/L; ABG PH 7.488 (7.350-7.450); ABG PO2 79.5 mmHg (75.0-100.0); ABG SITE RIGHT RADIAL; ABG TOTAL HEMOGLOBIN 11.5 G/dL (13.5-18.0); COHb 0.3 % (0.5-1.5); MetHb 0.3 % (0.0-1.5); O2Hb 95.8 % (94.0-97.0); VENT MODE VENT - A/C; VT, ABG 450 mL
[2021-11-24 07:20] LABS: HEMATOCRIT 31.7 % (36.7-47.1); MEAN CORPUSCULAR HEMOGLOBIN 35.5 uug (23.8-33.4); MEAN CORPUSCULAR VOLUME 106.4 fL (73.0-96.2); PLATELET COUNT (AUTO) 580 K/uL (152-348)
--- NOTE | 2021-11-24 07:44 | NUR ---
Pt received on cont. west ventilator with given settings of AC RR 12, VT 450, PEEP +5, 28% Fio2. ETT secured via anchorfast @ approx 23 lip. Oral care done and PRN sxn provided. Alarms on and audible, ventilator plugged into red outlets. Will continue to monitor throughout shift.
[2021-11-24] MEDS: CLOPIDOGREL 75 MG TABLET NG SCH (08:05)
[2021-11-24] MEDS: THIAMINE HCL 100 MG TABLET NG SCH (08:05)
[2021-11-24] MEDS: ACETAMINOPHEN 650 MG/20.3 ML LIQUID UDC NG PRN (08:06)
[2021-11-24] MEDS: METOPROLOL TARTRATE 50 MG TABLET PO SCH ×2 (08:06→20:28)
[2021-11-24] MEDS: levETIRAcetam 500 MG/5 ML LIQUID UDC NG SCH ×2 (08:07→20:03)
[2021-11-24] MEDS: LOPERAMIDE HCL 2 MG CAPSULE NG PRN (08:08)
[2021-11-24] MEDS: CULTURELLE CAPSULE NG SCH ×2 (08:08→20:03)
[2021-11-24] MEDS: GABAPENTIN 300 MG CAPSULE NG SCH ×3 (08:09→17:35)
[2021-11-24] MEDS ORDERED: VANCOMYCIN IV 1,000 MG in IV DEXTROSE 5% 250 ML IV ONE (11:00)
[2021-11-24] MEDS: MICAFUNGIN SODIUM 100 MG in IV NORMAL SALINE 100 ML IV SCH (13:04)
--- NOTE | 2021-11-24 13:50 | NUR ---
Contacted [employer], spoke to Daria. Notified her that Kota was spoken to and I received the password of [id number] to unlock the phone. Patients phone is supposed to have sisters number in it. Two of his sisters are Shy and Emilia.
[2021-11-24 14:14] LABS: CREATININE 0.7 mg/dL (0.6-1.3); MAGNESIUM 1.9 mg/dL (1.8-2.4); PHOSPHOROUS 2.6 mg/dL (2.5-4.9); POTASSIUM 3.9 mmol/L (3.5-5.1)
--- NOTE | 2021-11-24 14:17 | NUR ---
Report given to Talia who will be taking over the patient.
--- NOTE | 2021-11-24 17:16 | NUR ---
report received from Jaqui, will continue with plan of care.
--- NOTE | 2021-11-24 18:59 | NUR ---
pt sedated on versed at 5mg, NG tube in place in left nares, Jevity running at 75cc for 22hrs. rivas in place draining to gravity output 1050. no pressors, will endorse to oncoming nurse
--- NOTE | 2021-11-24 19:30 | NUR ---
REPORT FROM DAY SHIFT RN ,PATIENT IN BED ORALLY INTUBATED ON AC 12/TV450/PEEP 5 FIO2 28%,TOLERATING VENT SETTING SATURATION 100% RR 17 TO 16.MINIMAL SECRETIONS VIA THE ETT BUT MODERATE TO LARGE VIA MOUTH , ORAL CARE DONE .ON VERSED DRIP FOR SEDATION . LEFT NARE NGT JEVITY 1.2 AT 75 MLX22 HOURS . HOB UP ASPIRATION PRECAUTION OBSERVED. F/C TO BSD WITH YELLOWISH URINE . AFEBRILE TEMP 98.38 VIA ORALLY. CONTINUE TO MONITOR V/S AND LEVELS OF COMFORT AND SEDATION .
[2021-11-24] MEDS: ATORVASTATIN 40 MG TABLET NG SCH (20:03)
[2021-11-24] MEDS: ENOXAPARIN SODIUM 40 MG/0.4 ML DISP.SYRIN SQ SCH (20:04)
--- NOTE | 2021-11-24 22:12 | NUR ---
TURNED AND REPOSITION PATIENT ,OFFLOADED BACK WITH PILLOWS AND BUE AND BLE ELEVATED WITH PILLOWS . SCDS USED TO BLE . HEELS OFF BED USING PILLOWS . ST ON THE HEART MONITOR 113 TO 115.
[2021-11-24] MEDS ORDERED: VANCOMYCIN IV 1,000 MG in IV DEXTROSE 5% 250 ML IV SCH (23:00)
[2021-11-25] VITALS (23 sets, daily range): BP systolic 92–140; BP diastolic 51–91
[2021-11-25] MEDS: IV NS 1000 ML 1,000 ML IV PRN ×2 (00:37→16:14)
[2021-11-25] MEDS: MIDAZOLAM HCL 50 MG in IV NORMAL SALINE 40 ML IV PRN ×2 (00:39→18:33)
[2021-11-25] MEDS: BLOOD SUGAR DIAGNOSTIC 1 EACH STRIP VI SCH ×5 (00:41→23:59)
[2021-11-25] MEDS: REMEDY ESSENTIAL ZINC PASTE 113 GM TP PRN ×2 (00:42→05:07)
[2021-11-25] MEDS: ALBUTEROL SULFATE 2.5 MG/3 ML NEBU NEB SCH ×4 (01:28→20:22)
[2021-11-25] MEDS: IPRATROPIUM BROMIDE 0.5 MG/2.5 ML NEBU NEB SCH ×4 (01:28→20:21)
[2021-11-25 02:56] LABS: CREATININE 0.7 mg/dL (0.6-1.3); POTASSIUM 3.5 mmol/L (3.5-5.1)
[2021-11-25 03:01] LABS: BILIRUBIN,TOTAL 0.2 mg/dL (0.2-1.0); TOTAL PROTEIN, SERUM 5.9 g/dL (6.4-8.2)
[2021-11-25] MEDS: MEROPENEM 1 G in IV NORMAL SALINE 100 ML IV SCH (03:04)
--- NOTE | 2021-11-25 04:00 | NUR ---
had a small bm soft brownish in color .morning care done ,bath patient changed soiled linens and gown . f/c done . oral care done .
[2021-11-25] MEDS: PANTOPRAZOLE ORAL SUSPENSION 40 MG SUSPDR.PKT NG SCH (05:07)
[2021-11-25 05:20] LABS: MEAN CORPUSCULAR HEMOGLOBIN 36.1 uug (23.8-33.4); MEAN CORPUSCULAR VOLUME 104.5 fL (73.0-96.2); PLATELET COUNT (AUTO) 578 K/uL (152-348)
[2021-11-25 05:37] LABS: CREATININE 0.7 mg/dL (0.6-1.3); MAGNESIUM 1.8 mg/dL (1.8-2.4); PHOSPHOROUS 3.3 mg/dL (2.5-4.9); POTASSIUM 3.8 mmol/L (3.5-5.1)
[2021-11-25] MEDS: MODAFINIL 100 MG TABLET NG SCH (05:44)
[2021-11-25] MEDS: GABAPENTIN 300 MG CAPSULE NG SCH ×3 (07:59→16:22)
[2021-11-25] MEDS: THIAMINE HCL 100 MG TABLET NG SCH (07:59)
[2021-11-25] MEDS: METOPROLOL TARTRATE 50 MG TABLET PO SCH ×2 (08:00→20:39)
[2021-11-25] MEDS: CLOPIDOGREL 75 MG TABLET NG SCH (08:00)
[2021-11-25] MEDS: CULTURELLE CAPSULE NG SCH ×2 (08:00→20:39)
[2021-11-25] MEDS: levETIRAcetam 500 MG/5 ML LIQUID UDC NG SCH ×2 (08:01→20:40)
--- NOTE | 2021-11-25 09:49 | NUR ---
RECEIVED PT ON AC 12 450 +5 28%. ORAL CARE DONE. HME CHANGED. ETT 7.5 @ 23CM
[2021-11-25] MEDS: MICAFUNGIN SODIUM 100 MG in IV NORMAL SALINE 100 ML IV SCH (12:19)
--- NOTE | 2021-11-25 15:09 | NUR ---
Clinical Social Work Note: PILI contacted [facility] ([phone]) and spoke with Angely. She stated pt has a solo plan and there is no next of kin listed. The nurses in CCU also stated they are not able to reach the names listed on the face sheet either such as the social service worker, Kota ([phone]) and Bettye (face sheet states family member but it has not been confirmed) at ([phone]). Carolyn number is a general line. PILI also contacted [facility] ([phone]) and spoke with Sherin who stated the pt only has the social workers contact info, however she was able to provide the pt's field nurse case managerroute manager, Inna ([phone]) as a new resource. PILI contacted the field nurse case manager and left her a voicemail for a call back. Sherin from [facility] also stated the pt has resided at [facility] since 2020 and the social service worker and field nurse case manager are the only contact info they had for him. There is no Next of Kin found at this time for this pt.
[2021-11-25] MEDS: ACETAMINOPHEN 650 MG/20.3 ML LIQUID UDC NG PRN (15:48)
--- NOTE | 2021-11-25 17:50 | NUR ---
Decreased versed from 5mg to 3mg titrated down throughout the day per Dr. Bowman and Dr. Saavedra. Dr. Maldonado recommends for surgery trach consult to be arranged per joint cutter machine and make him aware of arrangement so that consult for Peg placement can be arranged with primary and GI. wallboard worker to follow up with any family contacts to be able to obtain consent for these procedures. Social in unit and obtained face sheet and will follow up with any family member contacts.
--- NOTE | 2021-11-25 18:08 | NUR ---
A call from [employer] by Althea was able to find family contacts 2 sisters Emilia [phone] and Shy [phone].
[2021-11-25] MEDS: MORPHINE SULFATE 2 MG/1 ML DISP.SYRIN IV PRN (20:40)
[2021-11-25] MEDS: ATORVASTATIN 40 MG TABLET NG SCH (20:41)
[2021-11-25] MEDS: ENOXAPARIN SODIUM 40 MG/0.4 ML DISP.SYRIN SQ SCH (20:41)
--- NOTE | 2021-11-25 22:00 | NUR ---
vents keeps on beeping ,patient coughing a lots even after being suction rr elevated 28 ,increased sedation versed see spreadsheet .
[2021-11-26] VITALS (24 sets, daily range): BP systolic 95–139; BP diastolic 58–88
--- NOTE | 2021-11-26 00:22 | NUR ---
fingerstick done 132 no action needed .
[2021-11-26] MEDS: IPRATROPIUM BROMIDE 0.5 MG/2.5 ML NEBU NEB SCH ×4 (01:19→19:35)
[2021-11-26] MEDS: ALBUTEROL SULFATE 2.5 MG/3 ML NEBU NEB SCH ×4 (01:20→19:35)
--- NOTE | 2021-11-26 04:24 | NUR ---
PATIENT ON CONT SIDHU VENT WITH 7.5 ET/TUBE IN PLACE AND SECURED WITH ANCHOR FAST, MOVE Q2 HOURS,,PT DOES ASSIST AT TIMES, EYES SLIGHTLY OPEN, BUT NOT REALLY TRACKING, SUCTIONED LIGHT PALE YELL TINGE SECRETIONS, AND SUCTION MOUTH WITH LESLI LE WELL, NEB INLINE X 2 WITH ALBUTEROL/ ATROVENT, CHANGE HME, ALL VENT ALARMS GOOD ,NO VENT CHANGES MADE, NO ABG ORDER, CURRENT SETTINGS, A/C 12, 450ML, PEEP5, FIO2 @ 28%.Shruti VOGEL RCP Addendum: 11/26/21 at 0427 by CHEMA VOGEL RT Amended: Links added.
--- NOTE | 2021-11-26 04:27 | NUR ---
PATIENT ON VENT CURRENT SETTINGS, A/C , VT 400ML, PEEP5, FIO2 @ 40% .Shruti PEREZP Addendum: 11/26/21 at 0428 by CHEMA VOGEL RT Amended: Links added.
[2021-11-26] MEDS: PANTOPRAZOLE ORAL SUSPENSION 40 MG SUSPDR.PKT NG SCH (05:03)
[2021-11-26] MEDS: IV NS 1000 ML 1,000 ML IV PRN ×2 (05:04→19:49)
[2021-11-26 05:08] LABS: HEMATOCRIT 30.1 % (36.7-47.1); MEAN CORPUSCULAR HEMOGLOBIN 35.7 uug (23.8-33.4); PLATELET COUNT (AUTO) 651 K/uL (152-348)
[2021-11-26] MEDS: BLOOD SUGAR DIAGNOSTIC 1 EACH STRIP VI SCH ×3 (05:15→18:00)
[2021-11-26 05:16] LABS: CARBON DIOXIDE 28 mmol/L (21-32); CHLORIDE 104 mmol/L (98-107); CREATININE 0.6 mg/dL (0.6-1.3); GLUCOSE 122 mg/dL (74-106); MAGNESIUM 1.9 mg/dL (1.8-2.4); PHOSPHOROUS 3.3 mg/dL (2.5-4.9); POTASSIUM 3.8 mmol/L (3.5-5.1); UREA NITROGEN, BLOOD 9 mg/dL (7-18)
[2021-11-26] MEDS: MODAFINIL 100 MG TABLET NG SCH (05:38)
--- NOTE | 2021-11-26 07:30 | NUR ---
Dr. Bowman prefers to switch versed to propofol reduce prolonged effects of sedation versus propofol.
[2021-11-26] MEDS: CULTURELLE CAPSULE NG SCH ×2 (07:41→20:17)
[2021-11-26] MEDS: levETIRAcetam 500 MG/5 ML LIQUID UDC NG SCH ×2 (07:41→20:17)
[2021-11-26] MEDS: THIAMINE HCL 100 MG TABLET NG SCH (07:57)
[2021-11-26] MEDS: GABAPENTIN 300 MG CAPSULE NG SCH (07:57)
[2021-11-26] MEDS: CLOPIDOGREL 75 MG TABLET NG SCH (07:57)
[2021-11-26] MEDS: METOPROLOL TARTRATE 50 MG TABLET PO SCH ×2 (07:58→20:18)
--- NOTE | 2021-11-26 08:00 | NUR ---
Dr Hoang called to schedule surgery for trach today. ordered for consent, npo, and hold bklood thinners for today.
--- NOTE | 2021-11-26 09:03 | NUR ---
Per Dr. Hoang hold plavix and lovenox for today.
[2021-11-26] MEDS: PROPOFOL 100 ML IV PRN (09:32)
--- NOTE | 2021-11-26 13:30 | NUR ---
Pt received on continuous mechanical ventilation via 7.5 ETT secured at 23cm @ the lip. Pt rec'd on Mullen vent with ordered settings of A/C 12, VT 450, PEEP +5, FIO2 28% . Pt tolerating vent settings well. Suctioned moderate to large amounts of walden thick secretions. Bag/valve/mask at bedside. HME changed. Vent plugged into emergency red outlet. Will continue to monitor.
[2021-11-26] MEDS ORDERED: ROCURONIUM BROMIDE 50 MG/5 ML VIAL ONE (13:41)
--- NOTE | 2021-11-26 13:50 | NUR ---
OR team, Respiratory, at bedside with Anesthesiologist and Dr. Hoang to do trach placement. Time out was done prior to procedure.
--- NOTE | 2021-11-26 14:00 | NUR ---
Trach procedure performed at bedside with no complications. Increased FIO2 to 100% per MD verbal order during procedure. [place] 8DCT trach patent and sutured in placed. Will continue to monitor.
[2021-11-26] MEDS ORDERED: ETOMIDATE 20 MG/10 ML VIAL IV ONE (14:07)
--- NOTE | 2021-11-26 14:14 | NUR ---
trach done roseann 8 placed on patient. patient be monitored at this time. uneventful successful trach placement.
--- NOTE | 2021-11-26 14:15 | NUR ---
FIO2 decreased back to 28%. KARIN Campbell notified. Pt SpO2 99% Will continue to monitor
[2021-11-26] MEDS: MICAFUNGIN SODIUM 100 MG in IV NORMAL SALINE 100 ML IV SCH (14:59)
[2021-11-26] MEDS: MORPHINE SULFATE 2 MG/1 ML DISP.SYRIN IV PRN ×2 (17:42→22:19)
[2021-11-26] MEDS: ACETAMINOPHEN 650 MG/20.3 ML LIQUID UDC NG PRN (17:43)
--- NOTE | 2021-11-26 20:00 | NUR ---
RECEIVED PATIENT TRACH TO VENT .TOLERATING TRACH AND VENT SETTINGS ,SATURATION 100 % RR 16. SUCTION VIA TRACH AND VIA MOUTH .HOB UP . TF IN PROGRESS JEVITY AT 75 ML/HOURS ,VERY MINIMAL RESIDUAL 10 ML. KUO CATHETER BSD YELLOWISH IN COLOR . SR [address] ON THE HEART MONITOR .
[2021-11-26] MEDS: ATORVASTATIN 40 MG TABLET NG SCH (20:17)
[2021-11-26] MEDS: ENOXAPARIN SODIUM 40 MG/0.4 ML DISP.SYRIN SQ SCH (20:18)
--- NOTE | 2021-11-26 20:44 | NUR ---
Patient received freshly trached with a Shiley 8DCT, currently tolerating ordered vent settings of AC 12, 450, +5, 28%. No SOB noted at this time. Suctioned small to moderate amounts of thick walden/ blood tinged secretions. Lavage applied without complications. Inline treatments orders reviewed and administered. Vent plugged in to red outlet, alarms are on/audible. Will continue to monitor.
--- NOTE | 2021-11-26 22:00 | NUR ---
TURNED AND REPOSITION PATIENT OFFLOADED BACK WITH PILLOWS . DUE MEDICATION GIVEN AND PAIN MEDICATION MORPHINE GIVEN PRN. TRACH SITE CDI ,RESPIRATORY THERAPIST CLEAN TRACH SITE AND BREATHING TREATMENT GIVEN BY RESPIRATORY THERAPIST . .
[2021-11-27] VITALS (23 sets, daily range): BP systolic 100–148; BP diastolic 58–87
--- NOTE | 2021-11-27 | NUR ---
FINGERSTICK DONE BLOOD SUGAR 143 , V/S WNL .AFEBRILE 99.0 F.WILL CONTINUE TO MONITOR TEMPERATURE .
[2021-11-27] MEDS: BLOOD SUGAR DIAGNOSTIC 1 EACH STRIP VI SCH ×4 (00:23→18:43)
[2021-11-27] MEDS: ALBUTEROL SULFATE 2.5 MG/3 ML NEBU NEB SCH ×4 (01:12→19:16)
[2021-11-27] MEDS: IPRATROPIUM BROMIDE 0.5 MG/2.5 ML NEBU NEB SCH ×4 (01:12→19:16)
--- NOTE | 2021-11-27 03:30 | NUR ---
AM CARE DONE BATH PATIENT CHANGED SOILED LINENS AND GOWN . OFFLOADED BACK WITH PILLOWS AND BUE AND BLE ELEVATED WITH PILLOWS . F/C AND TRACH CARE DONE .
[2021-11-27 04:56] LABS: MEAN CORPUSCULAR HEMOGLOBIN 35.6 uug (23.8-33.4); MEAN CORPUSCULAR VOLUME 103.2 fL (73.0-96.2); PLATELET COUNT (AUTO) 585 K/uL (152-348)
[2021-11-27 05:08] LABS: CARBON DIOXIDE 28 mmol/L (21-32); CHLORIDE 104 mmol/L (98-107); CREATININE 0.5 mg/dL (0.6-1.3); GLUCOSE 168 mg/dL (74-106); MAGNESIUM 1.9 mg/dL (1.8-2.4); PHOSPHOROUS 3.6 mg/dL (2.5-4.9); POTASSIUM 3.7 mmol/L (3.5-5.1); UREA NITROGEN, BLOOD 8 mg/dL (7-18)
[2021-11-27] MEDS: MORPHINE SULFATE 2 MG/1 ML DISP.SYRIN IV PRN ×3 (05:11→16:12)
[2021-11-27] MEDS: ACETAMINOPHEN 650 MG/20.3 ML LIQUID UDC NG PRN ×3 (05:11→21:03)
[2021-11-27] MEDS: REMEDY ESSENTIAL ZINC PASTE 113 GM TP PRN (05:17)
[2021-11-27] MEDS: PANTOPRAZOLE ORAL SUSPENSION 40 MG SUSPDR.PKT NG SCH (05:19)
[2021-11-27] MEDS: MODAFINIL 100 MG TABLET NG SCH (05:38)
[2021-11-27 06:32] LABS: ABG BASE EXCESS 0.1 mmol/L; ABG HCO3 22.7 mmol/L; ABG PCO2 30.4 mmHg (35.0-45.0); ABG PH 7.491 (7.350-7.450); ABG PO2 118.7 mmHg (75.0-100.0); ABG SITE RIGHT RADIAL; ABG TOTAL HEMOGLOBIN 11.8 G/dL (13.5-18.0); COHb 0.3 % (0.5-1.5); MetHb 0.2 % (0.0-1.5); VENT MODE VENT - A/C; VT, ABG 450 mL
[2021-11-27] MEDS: CLOPIDOGREL 75 MG TABLET NG SCH (08:57)
[2021-11-27] MEDS: levETIRAcetam 500 MG/5 ML LIQUID UDC NG SCH ×2 (08:57→21:05)
[2021-11-27] MEDS: THIAMINE HCL 100 MG TABLET NG SCH (08:57)
[2021-11-27] MEDS: CULTURELLE CAPSULE NG SCH ×2 (08:57→21:03)
[2021-11-27] MEDS: METOPROLOL TARTRATE 50 MG TABLET PO SCH ×2 (08:58→21:04)
[2021-11-27] MEDS: JEVITY 1.2 1000 ML LIQUID GT PRN (09:03)
[2021-11-27] MEDS: IV NS 1000 ML 1,000 ML IV PRN (09:17)
[2021-11-27] MEDS: MICAFUNGIN SODIUM 100 MG in IV NORMAL SALINE 100 ML IV SCH (12:46)
--- NOTE | 2021-11-27 18:55 | NUR ---
PM care done for patient. Bed left in lowest position. Comfort measures provided. IV site patent and intact running 50cc/hr of normal saline. Feeding pump running at 75 cc/hr and to stop at 0600 11/28/21. Will endorse information to PM nurse.
[2021-11-27] MEDS: ATORVASTATIN 40 MG TABLET NG SCH (21:03)
[2021-11-27] MEDS: ENOXAPARIN SODIUM 40 MG/0.4 ML DISP.SYRIN SQ SCH (21:06)
[2021-11-28] VITALS (25 sets, daily range): BP systolic 113–164; BP diastolic 71–94
[2021-11-28] MEDS: BLOOD SUGAR DIAGNOSTIC 1 EACH STRIP VI SCH ×5 (00:28→23:48)
[2021-11-28] MEDS: IPRATROPIUM BROMIDE 0.5 MG/2.5 ML NEBU NEB SCH ×4 (01:28→19:56)
[2021-11-28] MEDS: ALBUTEROL SULFATE 2.5 MG/3 ML NEBU NEB SCH ×4 (01:28→19:56)
[2021-11-28] MEDS: ACETAMINOPHEN 650 MG/20.3 ML LIQUID UDC NG PRN ×3 (05:47→20:28)
[2021-11-28] MEDS: IV NS 1000 ML 1,000 ML IV PRN ×2 (06:04→23:43)
[2021-11-28] MEDS: PANTOPRAZOLE ORAL SUSPENSION 40 MG SUSPDR.PKT NG SCH (06:07)
[2021-11-28] MEDS: MODAFINIL 100 MG TABLET NG SCH (06:36)
--- NOTE | 2021-11-28 07:38 | NUR ---
Recieved patient on patient approx 1930. Pt was recently trached and patient still has a moderate to large amount of blood tinged secretions. Pt remains in an altered mental status, he is posturing. He opens his eyes to verbal and tactile stimuli and his pupils are reactive. Patient continues to spike a low grade fever intermittently which subsides after tylenol 650 mg is given via GTube. Patient is resting comfortably at change of shift and report is given to Scott FRAZIER.
--- NOTE | 2021-11-28 08:00 | NUR ---
Cooling measures implemented due to increased temperature.
[2021-11-28] MEDS: CLOPIDOGREL 75 MG TABLET NG SCH (08:24)
[2021-11-28] MEDS: THIAMINE HCL 100 MG TABLET NG SCH (08:24)
[2021-11-28] MEDS: METOPROLOL TARTRATE 50 MG TABLET PO SCH ×2 (08:24→20:23)
[2021-11-28] MEDS: CULTURELLE CAPSULE NG SCH ×2 (08:24→20:22)
[2021-11-28] MEDS: levETIRAcetam 500 MG/5 ML LIQUID UDC NG SCH ×2 (08:25→20:23)
[2021-11-28] MEDS: JEVITY 1.2 1000 ML LIQUID GT PRN (08:39)
--- NOTE | 2021-11-28 09:26 | NUR ---
Per surgery, patient will be scheduled to have bedside EGD with PEG tube placement on Wednesday at 0900AM. Preparation at the bedside will begin 0800AM.
[2021-11-28] MEDS ORDERED: DEXTROSE 50% 50 ML DISP.SYRIN IV PRN (10:00)
[2021-11-28] MEDS: INSULIN REGULAR, HUMAN 300 UNIT/3 ML VIAL SQ PRN ×3 (12:11→23:51)
[2021-11-28 13:25] LABS: HEMATOCRIT 31.5 % (36.7-47.1); MEAN CORPUSCULAR HEMOGLOBIN 34.7 uug (23.8-33.4); MEAN CORPUSCULAR VOLUME 101.7 fL (73.0-96.2); PLATELET COUNT (AUTO) 809 K/uL (152-348)
[2021-11-28] MEDS: MICAFUNGIN SODIUM 100 MG in IV NORMAL SALINE 100 ML IV SCH (14:32)
[2021-11-28 14:55] LABS: *BILIRUBIN,URIN NEGATIVE (NEGATIVE); *BLOOD, URINE 1+ (NEGATIVE); *CLARITY,URINE CLEAR (CLEAR); *COLOR,URINE YELLOW (YELLOW); *KETONES,URINE NEGATIVE (NEGATIVE); LEUKOCYTE ESTERASE ,URINE NEGATIVE (NEGATIVE); NITRITE, URINE NEGATIVE (NEGATIVE); PH,URINE 8.5 (5.0-8.0); UGLUCOSE NEGATIVE (NEGATIVE)
[2021-11-28] MEDS: CEFEPIME HCL 2 G in IV DEXTROSE 5% 100 ML IV SCH ×2 (15:55→21:10)
[2021-11-28] MEDS: MORPHINE SULFATE 2 MG/1 ML DISP.SYRIN IV PRN (16:44)
[2021-11-28 18:03] LABS: BACTERIA,URINE NONE SEEN /HPF (NONE SEEN); RBC,URINE 20-50 /HPF (0-3); SQUAMOUS EPITHELIAL CELL,UR FEW /HPF (NONE SEEN); WBC,URINE 0-3 /HPF (0-3)
--- NOTE | 2021-11-28 20:00 | NUR ---
PATIENT IN BED TRACH TO VENT TOLERATING VENT SETTINGS SHILEY 8 ,AC 12/450/FIO2 28% PEEP 5 SUCTION VIA TRACH AND ORALLY . HOB UP AND ORAL CARE DONE . LEFT NARE NGT WITH JEVITY 1.2 @ 75 CC/HR TOLERATING TUBE FEEDINGS FLUSHED TUBE FEEDINGS. F/C TO BSD WITH YELLOWISH URINE .
[2021-11-28] MEDS: ATORVASTATIN 40 MG TABLET NG SCH (20:23)
[2021-11-28] MEDS: ENOXAPARIN SODIUM 40 MG/0.4 ML DISP.SYRIN SQ SCH (20:24)
--- NOTE | 2021-11-28 20:28 | NUR ---
TYLENOL GIVEN PRN C/O TEMP 99.4 F GIVEN VIA THE NGT ,COLD ICE PACKS PLACED TO BILATERAL ARMPIT AND BILATERAL GROIN .
[2021-11-28 20:32] LABS: EOSINOPHILS % (MANUAL) 2 % (0-8); LYMPHOCYTES % (MANUAL) 7 % (20-40); MONOCYTES % (MANUAL) 6 % (2-10); NEUTROPHILS % (MANUAL) 85 % (42-75)
--- NOTE | 2021-11-28 21:30 | NUR ---
PM CARE DONE BATH PATIENT CHANGED SOILED LINENS AND GOWN .Z GUARD APPLIED TO SACRAL AND BILATERAL GROIN AND SACRAL AREA .OFFLOADED BACK WITH PILLOWS AND BUE AND BLE ELEVATED WITH PILLOWS .
[2021-11-29] VITALS (15 sets, daily range): BP systolic 109–129; BP diastolic 62–81
--- NOTE | 2021-11-29 | NUR ---
FINGERSTICK DONE Q6 AND FOLLOW ISS PATIENT ON MILD ISS .
--- NOTE | 2021-11-29 | NUR ---
TOLERATING VENT SETTING NO RESPIRATORY DISTRESS NOTED . SATURATION 100% RR 24.
[2021-11-29] MEDS: IPRATROPIUM BROMIDE 0.5 MG/2.5 ML NEBU NEB SCH ×4 (00:52→20:18)
[2021-11-29] MEDS: ALBUTEROL SULFATE 2.5 MG/3 ML NEBU NEB SCH ×4 (00:53→20:19)
--- NOTE | 2021-11-29 02:00 | NUR ---
TURNED AND REPOSITION PATIENT OFFLOADED BACK WITH PILLOWS .BUE AND BLE ELEVATED WITH PILLOWS .
--- NOTE | 2021-11-29 04:19 | NUR ---
PATIENT ON CONT SIDHU VENT WITH TRACH IN PLACE,SUTURED IN PLACE, CLEANED, SLIGHT PINKISH TINGE SECRETIONS, SETTINGS, A/C12,450ML, PEEP5, FIO2 28%, Q6 NEB INLINE X 2 , ALL VENT ALARMS GOOD, NO VENT CHANGES MADE, SUCTIONED LIGHT PINKISH TINGE SECRETIONS, CHECK CUFF, CHANGE HME, PT STABLE, WITH GOOD OXYGENATION .Shruti PEREZP Addendum: 11/29/21 at 0422 by CHEMA VOGEL RT Amended: Links added.
--- NOTE | 2021-11-29 04:30 | NUR ---
BATH PATIENT ,CHANGED SOILED LINENS AND GOWN .KUO ARE ,TRACH CARE DONE .Z GUARD APPLIED TO SACRAL PLACED MEPILEX AND Z GUARD APPLIED BILATERAL GROIN
[2021-11-29] MEDS: CEFEPIME HCL 2 G in IV DEXTROSE 5% 100 ML IV SCH ×3 (05:22→21:14)
[2021-11-29] MEDS: PANTOPRAZOLE ORAL SUSPENSION 40 MG SUSPDR.PKT NG SCH (05:27)
[2021-11-29] MEDS: BLOOD SUGAR DIAGNOSTIC 1 EACH STRIP VI SCH ×3 (05:28→18:05)
[2021-11-29 05:29] LABS: HEMATOCRIT 29.7 % (36.7-47.1); MEAN CORPUSCULAR HEMOGLOBIN 35.2 uug (23.8-33.4); MEAN CORPUSCULAR VOLUME 102.7 fL (73.0-96.2); PLATELET COUNT (AUTO) 713 K/uL (152-348)
[2021-11-29] MEDS: MODAFINIL 100 MG TABLET NG SCH (05:43)
[2021-11-29 05:51] LABS: CARBON DIOXIDE 25 mmol/L (21-32); CHLORIDE 101 mmol/L (98-107); CREATININE 0.5 mg/dL (0.6-1.3); GLUCOSE 106 mg/dL (74-106); PHOSPHOROUS 4.1 mg/dL (2.5-4.9); UREA NITROGEN, BLOOD 12 mg/dL (7-18)
[2021-11-29] MEDS: levETIRAcetam 500 MG/5 ML LIQUID UDC NG SCH ×2 (08:08→21:15)
[2021-11-29] MEDS: CLOPIDOGREL 75 MG TABLET NG SCH (08:09)
[2021-11-29] MEDS: METOPROLOL TARTRATE 50 MG TABLET PO SCH ×2 (08:09→21:17)
[2021-11-29] MEDS: CULTURELLE CAPSULE NG SCH ×2 (08:09→21:15)
[2021-11-29] MEDS: THIAMINE HCL 100 MG TABLET NG SCH (08:09)
--- NOTE | 2021-11-29 12:00 | NUR ---
report given to Olivia. patient transferred uneventful. patient on tele box, tube feeds, and picc intact upon transfer to room 306.
[2021-11-29] MEDS: INSULIN REGULAR, HUMAN 300 UNIT/3 ML VIAL SQ PRN (12:13)
--- NOTE | 2021-11-29 12:40 | NUR ---
received from CCU per bed, nonverbal, responds with painful stimuli by moving extremity, tele applied- ST 104, ngt on left nostril- jevity infusing at 75ml/hr, kept head of bed elevated, on vent via trache with the following settings:AC 12, TV 450 FIO@ 28%, PEEP 5, sat at 100%, PICC line triple lumen on the left arm, rivas cath draining sapphire urine, on first step mattress, will continue to monitor
[2021-11-29] MEDS: MICAFUNGIN SODIUM 100 MG in IV NORMAL SALINE 100 ML IV SCH (13:22)
--- NOTE | 2021-11-29 15:00 | NUR ---
incontinent of stool moderate, soft, cleaned and repositioned, continue plan of care
[2021-11-29] MEDS: ACETAMINOPHEN 650 MG/20.3 ML LIQUID UDC NG PRN (18:50)
--- NOTE | 2021-11-29 18:57 | NUR ---
temp 100.2, tylenol given as ordered via ngt,
--- NOTE | 2021-11-29 20:00 | NUR ---
RESTING COMFORTABLY IN BED WITH EYES CLOSED, NO SS OF PAIN OR DISTRESS WITH VENT SETS [id number] SATURATING 100%. REQUIRES OCCASIONAL SUCTIONING VIA TRACH WITH ORAL CARE.SR ON MONITOR
--- NOTE | 2021-11-29 21:00 | NUR ---
PATIENT ON CONT SIDHU VENT WITH SHILEY #[address] AND SECURED, VENT SETTINGS, A/C 12, 400ML, PEEP5, FIO2 @ 28%; SUCTION LIGHT PALE YELL TINGE SECRETIONS, AND SUCTION MOUTH WITH LESLI LE, Q6 NEB INLINE WITH ALBUTEROL/ ATROVENT LESLI KING, CHANGE HME , AND NESS, NO VENT CHANGES MADE, PULSE OXY CONT AT BEDSIDE, WITH BACK UP TRACH, AND AMBU BAG IN ROOM .Shruti VOGEL RCP Addendum: 11/29/21 at 2102 by CHEMA VOGEL RT Amended: Links added.
[2021-11-29] MEDS: ATORVASTATIN 40 MG TABLET NG SCH (21:15)
[2021-11-29] MEDS: IV NS 1000 ML 1,000 ML IV PRN (21:15)
[2021-11-30] VITALS (9 sets, daily range): BP systolic 108–138; BP diastolic 28–91
[2021-11-30] MEDS: IPRATROPIUM BROMIDE 0.5 MG/2.5 ML NEBU NEB SCH ×4 (00:06→20:53)
[2021-11-30] MEDS: ALBUTEROL SULFATE 2.5 MG/3 ML NEBU NEB SCH ×4 (00:07→20:53)
[2021-11-30] MEDS: BLOOD SUGAR DIAGNOSTIC 1 EACH STRIP VI SCH ×4 (00:08→17:35)
--- NOTE | 2021-11-30 01:34 | NUR ---
KEPT OFF FROM FEEDING IN PREPARATION FOR PEG PLACEMENT IN AM. NO ACUTE CHANGE FROM 1999 ASSESSMENT. BS 88 VIA FINGER STICK WILL CLOSELY MONITOR.
[2021-11-30] MEDS: MODAFINIL 100 MG TABLET NG SCH (05:18)
[2021-11-30] MEDS: PANTOPRAZOLE ORAL SUSPENSION 40 MG SUSPDR.PKT NG SCH ×2 (05:19→05:20)
[2021-11-30] MEDS: CEFEPIME HCL 2 G in IV DEXTROSE 5% 100 ML IV SCH ×3 (05:19→21:33)
[2021-11-30 06:40] LABS: CREATININE 0.7 mg/dL (0.6-1.3)
[2021-11-30 06:50] LABS: HEMATOCRIT 30.7 % (36.7-47.1); MEAN CORPUSCULAR HEMOGLOBIN 35.2 uug (23.8-33.4); MEAN CORPUSCULAR VOLUME 102.1 fL (73.0-96.2); PLATELET COUNT (AUTO) 836 K/uL (152-348)
--- NOTE | 2021-11-30 06:59 | NUR ---
NO ACUTE CHANGE REMAINS SR ON MONITOR. FOR PEG PLACEMENT AT 0900
--- NOTE | 2021-11-30 08:00 | NUR ---
received obtunded, with trache connected to vent with same settings, sat at 99-100%, tube fdg off since midnight, for PEG placement today, incapacitated consent form signed by hospitalist, PICC line in place and patent, repositioned and kept comfortable
--- NOTE | 2021-11-30 08:00 | NUR ---
metoprolol tartrate not given BP 108/81
[2021-11-30] MEDS ORDERED: CLINDAMYCIN PHOSPHATE 600 MG/4 ML VIAL ONE (08:30)
--- NOTE | 2021-11-30 08:30 | NUR ---
covid test done and brought to lab- informed pt for OR at 0900
[2021-11-30] MEDS ORDERED: FENTANYL CITRATE 100 MCG/2 ML AMPUL ONE (08:31)
[2021-11-30] MEDS ORDERED: CLOPIDOGREL 75 MG TABLET NG SCH (09:00)
[2021-11-30] MEDS: CLOPIDOGREL 75 MG TABLET NG SCH (09:00)
--- NOTE | 2021-11-30 09:05 | NUR ---
BS done- 105 and OR crew is aware, at station for pt
--- NOTE | 2021-11-30 09:20 | NUR ---
To OR per bed
[2021-11-30] MEDS ORDERED: LIDOCAINE-MPF 2% 5 ML VIAL IJ ONE (09:30)
[2021-11-30] MEDS ORDERED: PROPOFOL 200 MG/20 ML BOTTLE IV ONE (09:30)
--- NOTE | 2021-11-30 11:00 | NUR ---
back from surgery on vent with same settings-O2 sat aat 100%, GT clamped, dsg at site dry and intact, vs taken -continue to monitor
[2021-11-30] MEDS: levETIRAcetam 500 MG/5 ML LIQUID UDC NG SCH ×2 (11:35→21:35)
[2021-11-30] MEDS: CULTURELLE CAPSULE NG SCH ×2 (11:36→21:32)
[2021-11-30] MEDS: THIAMINE HCL 100 MG TABLET NG SCH (11:36)
--- NOTE | 2021-11-30 11:57 | NUR ---
Cara Maldonado informed pt back from surgery and Plavix was renewed by GI- ordered to start tomorrow
[2021-11-30] MEDS: MICAFUNGIN SODIUM 100 MG in IV NORMAL SALINE 100 ML IV SCH (13:05)
[2021-11-30] MEDS: IV NS 1000 ML 1,000 ML IV PRN (17:56)
--- NOTE | 2021-11-30 18:05 | NUR ---
no distress noted, remains on same settings on vent saturating 99-100%, suctioned prn, repositioned q 2h with pillows for support, heels off loaded at all times, head of bed elevated, GT clamped
--- NOTE | 2021-11-30 19:29 | NUR ---
Received pt in no acute distress. Pt on vent setting of FIO2 of 28 , PEEP 5, TV 450 and AC 12. Pt iv intact and patent. Andrade intact and draining yellow colored urine. Safety and comfort provided. Will continue to monitor.
--- NOTE | 2021-11-30 19:30 | NUR ---
Received pt in no acute distress. Pt on vent setting of FIO2 of 35 , PEEP 5, TV 450 and AC 20. Pt iv intact and patent. Andrade intact and draining yellow colored urine. Safety and comfort provided. Will continue to monitor. Addendum: 12/01/21 at 0346 by KAYCE CHAN RN wrong pt
[2021-11-30] MEDS ORDERED: ENOXAPARIN SODIUM 40 MG/0.4 ML DISP.SYRIN SQ SCH (21:00)
--- NOTE | 2021-11-30 21:00 | NUR ---
Ask Dr cardiopulmonary technologist regarding if pt will get his Lovenox medication since pt Peg placement was done in am. As per Greyson Maldonado DNP pt will resume his Lovenox. Pt in no acute distress. Pt tolerated it well. Pt dressing on abdomen intact . No signs of bleeding noted. Will continue to monitor.
--- NOTE | 2021-11-30 21:25 | NUR ---
PATIENT ON CONT SIDHU VENT WITH SHILEY # [address] AND SECURED, SUCTIONED LIGHT PALE YELL TINGE , AT TIMES, SLIGHT PINKISH TINGE, WITH GOOD COUGH EFFORT, AND SUCTION MOUTH WITH MIMI TRACh care done, neb inline x 2 with albuterol/ atrovent toll well, no vent changes made, pt has cont pulse at bedside.Shruti PEREZP Addendum: 11/30/21 at 2127 by CHEMA VOGEL RT Amended: Links added.
[2021-11-30] MEDS: ATORVASTATIN 40 MG TABLET NG SCH (21:32)
[2021-11-30] MEDS: METOPROLOL TARTRATE 50 MG TABLET NG SCH (21:32)
[2021-12-01 00:15] VITALS: BP 118/75
[2021-12-01] MEDS: BLOOD SUGAR DIAGNOSTIC 1 EACH STRIP VI SCH ×4 (00:33→17:41)
[2021-12-01] MEDS: IPRATROPIUM BROMIDE 0.5 MG/2.5 ML NEBU NEB SCH ×4 (00:57→19:00)
[2021-12-01] MEDS: ALBUTEROL SULFATE 2.5 MG/3 ML NEBU NEB SCH ×4 (00:57→19:01)
[2021-12-01 04:13] VITALS: BP 117/79
[2021-12-01] MEDS: PANTOPRAZOLE ORAL SUSPENSION 40 MG SUSPDR.PKT NG SCH (05:10)
[2021-12-01] MEDS: CEFEPIME HCL 2 G in IV DEXTROSE 5% 100 ML IV SCH ×2 (05:10→14:27)
[2021-12-01] MEDS: MODAFINIL 100 MG TABLET NG SCH (05:59)
--- NOTE | 2021-12-01 06:15 | NUR ---
Pt in no acute distress. Iv intact. Andrade catheter intact. s
--- NOTE | 2021-12-01 06:17 | NUR ---
Pt in no acute distress. Iv intact. Andrade catheter intact. Same setting on vent. Pt on sinus rhythm. Prescribed medication given and pt tolerated it well. Pt tolerating medication on peg tube. No residual noted. Suction prn needed. Safety and comfort provided.All needs are met. Vital signs within normal limit. Will endorse to incoming nurse for continuity of care.
[2021-12-01 06:28] LABS: HEMATOCRIT 30.6 % (36.7-47.1); MEAN CORPUSCULAR HEMOGLOBIN 34.9 uug (23.8-33.4); MEAN CORPUSCULAR VOLUME 102.6 fL (73.0-96.2); PLATELET COUNT (AUTO) 803 K/uL (152-348)
[2021-12-01 06:37] LABS: CARBON DIOXIDE 23 mmol/L (21-32); CHLORIDE 100 mmol/L (98-107); CREATININE 0.6 mg/dL (0.6-1.3); GLUCOSE 104 mg/dL (74-106); POTASSIUM 3.7 mmol/L (3.5-5.1); UREA NITROGEN, BLOOD 14 mg/dL (7-18)
[2021-12-01 07:58] VITALS: BP 126/86
[2021-12-01] MEDS ORDERED: JEVITY 1.2 1000 ML LIQUID GT PRN (08:30)
[2021-12-01] MEDS: THIAMINE HCL 100 MG TABLET NG SCH (09:03)
[2021-12-01] MEDS: METOPROLOL TARTRATE 50 MG TABLET NG SCH (09:03)
[2021-12-01] MEDS: levETIRAcetam 500 MG/5 ML LIQUID UDC NG SCH (09:03)
[2021-12-01] MEDS: CULTURELLE CAPSULE NG SCH (09:03)
[2021-12-01] MEDS: CLOPIDOGREL 75 MG TABLET NG SCH (09:04)
[2021-12-01 11:52] VITALS: BP 136/91
[2021-12-01] MEDS: MICAFUNGIN SODIUM 100 MG in IV NORMAL SALINE 100 ML IV SCH (13:18)
[2021-12-01 16:26] VITALS: BP 119/78
--- NOTE | 2021-12-01 18:34 | NUR ---
No acute distress identified during the shift. turned and repositioned for perfusion. suctioned as needed. oral care done. skin care provided. will endorse for continuity of care.
--- NOTE | 2021-12-01 19:01 | NUR ---
Received pt on Mullen vent with the following settings of AC-12, Vt-450, PEEP+5, FIO2-28%, trached with Shiley#8 DCT trach, which is in place and secured properly. No respiratory distress noted. Airway care done, pt responded to physical stimuli. In-line HHN tx with 2.5mg Albuterol+0.5mg Atrovent given, pt tolerated well. Resus. bag and back up trach at bedside. Cont. pulse on. Vent and alarms checked and reset.
--- NOTE | 2021-12-01 20:00 | NUR ---
d/c patient to subacute as ordered. report given to RN in charge. no acute distress noted. patient remained stable during the shift. all needs attended and met. photo of skin taken in chart. belonging list signed. dc instructions given to subacute.
--- NOTE | 2021-12-01 20:00 | NUR ---
Dc pt with RT and RN. on stable condition. no distress noted.
== END 2021-12-01 20:00 | DRG 5 ==
LOC: ER 16:49 → TRANSITION 11-12 08:30 → TELE3 11-12 08:36 → TRANSITION 11-12 13:42 → CCU 11-12 20:07 → DOU3 11-29 12:41 → TELE-TD3 11-29 12:42
PROVIDERS: ADMIT Nurse Practitioner Acute Care; ATTEND Registered Nurse
PROC: 02HV33Z Insertion of Infusion Device into Superior Vena Cava, Percutaneous Approach (ICD-10-PCS; principal; 2021-11-12)
PROC: 5A12012 Performance of Cardiac Output, Single, Manual (ICD-10-PCS; principal; 2021-11-12)
PROC: 0BH17EZ Insertion of Endotracheal Airway into Trachea, Via Natural or Artificial Opening (ICD-10-PCS; principal; 2021-11-12)
PROC: 5A1955Z Respiratory Ventilation, Greater than 96 Consecutive Hours (ICD-10-PCS; principal; 2021-11-12)
PROC: 02HV33Z Insertion of Infusion Device into Superior Vena Cava, Percutaneous Approach (ICD-10-PCS; 2021-11-23)
PROC: 0B113F4 Bypass Trachea to Cutaneous with Tracheostomy Device, Percutaneous Approach (ICD-10-PCS; 2021-11-26)
PROC: 0DH63UZ Insertion of Feeding Device into Stomach, Percutaneous Approach (ICD-10-PCS; 2021-11-30)
DX: B37.49 Other urogenital candidiasis (principal); I46.9 Cardiac arrest, cause unspecified; J69.0 Pneumonitis due to inhalation of food and vomit; G92.8 Other toxic encephalopathy; A41.9 Sepsis, unspecified organism; I50.21 Acute systolic (congestive) heart failure; I21.A1 Myocardial infarction type 2; E43 Unspecified severe protein-calorie malnutrition; J96.01 Acute respiratory failure with hypoxia; J96.02 Acute respiratory failure with hypercapnia; G93.1 Anoxic brain damage, not elsewhere classified; E87.2 Acidosis; M62.82 Rhabdomyolysis; F10.229 Alcohol dependence with intoxication, unspecified; G40.909 Epilepsy, unspecified, not intractable, without status epilepticus; I69.354 Hemiplegia and hemiparesis following cerebral infarction affecting left non-dominant side; Z88.6 Allergy status to analgesic agent; Z88.0 Allergy status to penicillin; K21.9 Gastro-esophageal reflux disease without esophagitis; Z20.822 Contact with and (suspected) exposure to COVID-19; E16.2 Hypoglycemia, unspecified; F19.10 Other psychoactive substance abuse, uncomplicated; Y90.2 Blood alcohol level of 40-59 mg/100 ml; S30.0XXA Contusion of lower back and pelvis, initial encounter; S60.012A Contusion of left thumb without damage to nail, initial encounter; X58.XXXA Exposure to other specified factors, initial encounter; Y92.89 Other specified places as the place of occurrence of the external cause; E87.6 Hypokalemia; E05.90 Thyrotoxicosis, unspecified without thyrotoxic crisis or storm; F17.200 Nicotine dependence, unspecified, uncomplicated; G43.909 Migraine, unspecified, not intractable, without status migrainosus; G93.89 Other specified disorders of brain; I42.9 Cardiomyopathy, unspecified; K76.0 Fatty (change of) liver, not elsewhere classified; L98.491 Non-pressure chronic ulcer of skin of other sites limited to breakdown of skin; J32.3 Chronic sphenoidal sinusitis; J44.9 Chronic obstructive pulmonary disease, unspecified; K29.70 Gastritis, unspecified, without bleeding; R13.10 Dysphagia, unspecified; R32 Unspecified urinary incontinence; I48.91 Unspecified atrial fibrillation; R15.9 Full incontinence of feces; I11.0 Hypertensive heart disease with heart failure
CPT/HCPCS: 36415; 36569; 36600; 70030-TC; 70450; 71045; 76700; 80299; 83605; 83735; 84100; 84132; 84443; 84478; 84484; 85025; 85610; 85730; 86140; 86625; 86803; 87040; 87046; 87070; 87086; 87400; 87806; 92950; 93005; 93307; 94002; 94003; 94640; 94760; 97161; 99082-TC; A4649; A4663; A6209; G0378; G0480; J0171; J0360; J0692; J0696; J1450; J1610; J1644; J1650; J1815; J1953; J2060; J2185; J2248; J2250; J2270; J2370; J2405; J2543; J3010; J3370; J3475; J3480; J3490; J3590; J7040; J7042; J7050; J7070

== ENCOUNTER 2022-07-12 | Inpatient (IN) | payer OTHER ==
[~2022-07-12] VITALS: Ht 182.9 cm; Wt 54.5 kg
[~2022-07-12] MED LIST: ACET-73 PO; AMIT50TA3 PO; FLUT1BLS6 IH; GABA-532 PO; GABA800T11 PO; HYDR-501 PO; LEVE500T20 PO; MIRT-93 PO; PANT20TA17 PO; PROP20TA7 PO; QUET25TA PO
[2022-07-14 08:00] VITALS: TEMP 97.8
[2022-07-14] MEDS ORDERED: HYDROGEN PEROXIDE 3% 118 ML BOTTLE TP PRN (09:00)
[2022-07-14] MEDS: REMEDY ESSENTIAL ZINC PASTE 113 GM TP SCH ×4 (09:00→20:45)
[2022-07-14] MEDS: ASCORBIC ACID 500 MG TABLET GT SCH (09:00)
[2022-07-14] MEDS: ACIDOPHILUS/BULGARICUS CHEW TAB GT SCH ×2 (09:00→20:43)
[2022-07-14] MEDS ORDERED: MAGNESIUM HYDROXIDE 30 ML LIQUID UDC GT PRN (09:00)
[2022-07-14] MEDS: METOPROLOL TARTRATE 50 MG TABLET GT SCH ×2 (09:00→20:44)
[2022-07-14] MEDS: levETIRAcetam 500 MG/5 ML LIQUID UDC GT SCH ×2 (09:00→20:43)
[2022-07-14] MEDS: CLOPIDOGREL 75 MG TABLET GT SCH (09:00)
[2022-07-14] MEDS ORDERED: REMEDY ESSENTIAL ZINC PASTE 113 GM TP PRN (09:00)
[2022-07-14] MEDS ORDERED: BISACODYL 10 MG SUPP.RECT RC PRN (09:00)
[2022-07-14] MEDS: HYDROGEN PEROXIDE 3% 118 ML BOTTLE TP SCH ×2 (09:12→21:46)
[2022-07-14 14:20] VITALS: O2SAT 98
[2022-07-14] MEDS: IPRATROPIUM BROMIDE 0.5 MG/2.5 ML NEBU NEB SCH ×2 (14:20→19:31)
[2022-07-14] MEDS: ALBUTEROL SULFATE 2.5 MG/3 ML NEBU NEB SCH ×2 (14:20→19:31)
[2022-07-14 14:35] VITALS: O2SAT 99
[2022-07-14 19:30] VITALS: O2SAT 97
[2022-07-14 19:45] VITALS: O2SAT 99
[2022-07-14] MEDS: ENOXAPARIN SODIUM 40 MG/0.4 ML DISP.SYRIN SQ SCH (21:00)
[2022-07-14 21:12] VITALS: TEMP 98
[2022-07-15] VITALS (11 sets, daily range): TEMP 97.5–98.3; O2SAT 98–99
[2022-07-15] MEDS: IPRATROPIUM BROMIDE 0.5 MG/2.5 ML NEBU NEB SCH ×4 (01:02→19:39)
[2022-07-15] MEDS: ALBUTEROL SULFATE 2.5 MG/3 ML NEBU NEB SCH ×4 (01:02→19:39)
[2022-07-15] MEDS: PANTOPRAZOLE ORAL SUSPENSION 40 MG SUSPDR.PKT GT SCH (05:53)
[2022-07-15] MEDS: HYDROGEN PEROXIDE 3% 118 ML BOTTLE TP SCH ×2 (09:00→19:39)
[2022-07-15] MEDS: METOPROLOL TARTRATE 50 MG TABLET GT SCH ×2 (09:46→21:00)
[2022-07-15] MEDS: levETIRAcetam 500 MG/5 ML LIQUID UDC GT SCH ×2 (09:46→21:00)
[2022-07-15] MEDS: ACIDOPHILUS/BULGARICUS CHEW TAB GT SCH ×2 (09:46→21:00)
[2022-07-15] MEDS: REMEDY ESSENTIAL ZINC PASTE 113 GM TP SCH ×4 (09:47→21:59)
[2022-07-15] MEDS: ASCORBIC ACID 500 MG TABLET GT SCH (09:47)
[2022-07-15] MEDS: CLOPIDOGREL 75 MG TABLET GT SCH (09:47)
[2022-07-15] MEDS: JEVITY 1.2 1000 ML LIQUID GT PRN (18:57)
[2022-07-15] MEDS: ENOXAPARIN SODIUM 40 MG/0.4 ML DISP.SYRIN SQ SCH (21:59)
[2022-07-16] VITALS (10 sets, daily range): TEMP 97.9–98.3; O2SAT 98–99
[2022-07-16] MEDS: IPRATROPIUM BROMIDE 0.5 MG/2.5 ML NEBU NEB SCH ×4 (01:06→19:28)
[2022-07-16] MEDS: ALBUTEROL SULFATE 2.5 MG/3 ML NEBU NEB SCH ×4 (01:06→19:28)
[2022-07-16] MEDS: PANTOPRAZOLE ORAL SUSPENSION 40 MG SUSPDR.PKT GT SCH (05:30)
[2022-07-16] MEDS: HYDROGEN PEROXIDE 3% 118 ML BOTTLE TP SCH ×2 (09:00→21:42)
[2022-07-16] MEDS: ACIDOPHILUS/BULGARICUS CHEW TAB GT SCH ×2 (09:11→21:20)
[2022-07-16] MEDS: levETIRAcetam 500 MG/5 ML LIQUID UDC GT SCH ×2 (09:12→21:20)
[2022-07-16] MEDS: METOPROLOL TARTRATE 50 MG TABLET GT SCH ×2 (09:13→21:20)
[2022-07-16] MEDS: REMEDY ESSENTIAL ZINC PASTE 113 GM TP SCH ×4 (09:13→21:21)
[2022-07-16] MEDS: CLOPIDOGREL 75 MG TABLET GT SCH (09:13)
[2022-07-16] MEDS: ASCORBIC ACID 500 MG TABLET GT SCH (09:13)
[2022-07-16] MEDS: JEVITY 1.2 1000 ML LIQUID GT PRN (18:24)
[2022-07-16] MEDS: ENOXAPARIN SODIUM 40 MG/0.4 ML DISP.SYRIN SQ SCH (21:21)
[2022-07-17] VITALS (8 sets, daily range): TEMP 98–98.2; O2SAT 98–99
[2022-07-17] MEDS: ALBUTEROL SULFATE 2.5 MG/3 ML NEBU NEB SCH ×4 (01:30→19:27)
[2022-07-17] MEDS: IPRATROPIUM BROMIDE 0.5 MG/2.5 ML NEBU NEB SCH ×4 (01:30→19:27)
[2022-07-17] MEDS: PANTOPRAZOLE ORAL SUSPENSION 40 MG SUSPDR.PKT GT SCH (05:26)
[2022-07-17] MEDS: ASCORBIC ACID 500 MG TABLET GT SCH (09:00)
[2022-07-17] MEDS: REMEDY ESSENTIAL ZINC PASTE 113 GM TP SCH ×4 (09:00→21:05)
[2022-07-17] MEDS: METOPROLOL TARTRATE 50 MG TABLET GT SCH ×2 (09:00→21:05)
[2022-07-17] MEDS: ACIDOPHILUS/BULGARICUS CHEW TAB GT SCH ×2 (09:00→21:05)
[2022-07-17] MEDS: CLOPIDOGREL 75 MG TABLET GT SCH (09:00)
[2022-07-17] MEDS: levETIRAcetam 500 MG/5 ML LIQUID UDC GT SCH ×2 (09:00→21:05)
[2022-07-17] MEDS: HYDROGEN PEROXIDE 3% 118 ML BOTTLE TP SCH ×2 (09:22→21:56)
[2022-07-17] MEDS: JEVITY 1.2 1000 ML LIQUID GT PRN (11:39)
[2022-07-17] MEDS: ACETAMINOPHEN 650 MG/20 ML UDC- SA PATIENTS-PAIN ONLY GT PRN (21:06)
[2022-07-17] MEDS: ENOXAPARIN SODIUM 40 MG/0.4 ML DISP.SYRIN SQ SCH (21:07)
[2022-07-18] VITALS (10 sets, daily range): TEMP 97.8–98.2; O2SAT 97–99
[2022-07-18] MEDS: ALBUTEROL SULFATE 2.5 MG/3 ML NEBU NEB SCH ×4 (01:51→19:11)
[2022-07-18] MEDS: IPRATROPIUM BROMIDE 0.5 MG/2.5 ML NEBU NEB SCH ×4 (01:51→19:11)
[2022-07-18] MEDS: JEVITY 1.2 1000 ML LIQUID GT PRN ×2 (04:02→21:36)
[2022-07-18] MEDS: PANTOPRAZOLE ORAL SUSPENSION 40 MG SUSPDR.PKT GT SCH (05:34)
[2022-07-18] MEDS: HYDROGEN PEROXIDE 3% 118 ML BOTTLE TP SCH ×2 (09:00→21:52)
[2022-07-18] MEDS: ACIDOPHILUS/BULGARICUS CHEW TAB GT SCH ×2 (09:52→21:29)
[2022-07-18] MEDS: METOPROLOL TARTRATE 50 MG TABLET GT SCH ×2 (09:53→21:30)
[2022-07-18] MEDS: levETIRAcetam 500 MG/5 ML LIQUID UDC GT SCH ×2 (09:53→21:29)
[2022-07-18] MEDS: REMEDY ESSENTIAL ZINC PASTE 113 GM TP SCH ×4 (09:54→21:30)
[2022-07-18] MEDS: ASCORBIC ACID 500 MG TABLET GT SCH (09:54)
[2022-07-18] MEDS: CLOPIDOGREL 75 MG TABLET GT SCH (09:54)
[2022-07-18] MEDS: ENOXAPARIN SODIUM 40 MG/0.4 ML DISP.SYRIN SQ SCH (21:36)
[2022-07-19] VITALS (8 sets, daily range): TEMP 98.3–98.8; O2SAT 98–99
[2022-07-19] MEDS: IPRATROPIUM BROMIDE 0.5 MG/2.5 ML NEBU NEB SCH ×4 (01:34→19:23)
[2022-07-19] MEDS: ALBUTEROL SULFATE 2.5 MG/3 ML NEBU NEB SCH ×4 (01:34→19:23)
[2022-07-19] MEDS: PANTOPRAZOLE ORAL SUSPENSION 40 MG SUSPDR.PKT GT SCH (05:37)
[2022-07-19] MEDS: ASCORBIC ACID 500 MG TABLET GT SCH (08:31)
[2022-07-19] MEDS: METOPROLOL TARTRATE 50 MG TABLET GT SCH ×2 (08:31→21:00)
[2022-07-19] MEDS: levETIRAcetam 500 MG/5 ML LIQUID UDC GT SCH ×2 (08:31→21:00)
[2022-07-19] MEDS: ACIDOPHILUS/BULGARICUS CHEW TAB GT SCH ×2 (08:31→21:00)
[2022-07-19] MEDS: REMEDY ESSENTIAL ZINC PASTE 113 GM TP SCH ×4 (08:31→21:00)
[2022-07-19] MEDS: CLOPIDOGREL 75 MG TABLET GT SCH (08:31)
[2022-07-19] MEDS: ACETAMINOPHEN 650 MG/20 ML UDC- SA PATIENTS-PAIN ONLY GT PRN (08:32)
[2022-07-19] MEDS: HYDROGEN PEROXIDE 3% 118 ML BOTTLE TP SCH ×2 (09:31→21:00)
[2022-07-19] MEDS: JEVITY 1.2 1000 ML LIQUID GT PRN (14:56)
[2022-07-19] MEDS: ENOXAPARIN SODIUM 40 MG/0.4 ML DISP.SYRIN SQ SCH (21:00)
[2022-07-20] VITALS (10 sets, daily range): TEMP 98.5; O2SAT 98–99
[2022-07-20] MEDS: ALBUTEROL SULFATE 2.5 MG/3 ML NEBU NEB SCH ×4 (01:28→19:38)
[2022-07-20] MEDS: IPRATROPIUM BROMIDE 0.5 MG/2.5 ML NEBU NEB SCH ×4 (01:28→19:38)
[2022-07-20] MEDS: PANTOPRAZOLE ORAL SUSPENSION 40 MG SUSPDR.PKT GT SCH (06:00)
[2022-07-20] MEDS: JEVITY 1.2 1000 ML LIQUID GT PRN (07:28)
[2022-07-20] MEDS: ACIDOPHILUS/BULGARICUS CHEW TAB GT SCH ×2 (09:00→21:00)
[2022-07-20] MEDS: CLOPIDOGREL 75 MG TABLET GT SCH (09:00)
[2022-07-20] MEDS: REMEDY ESSENTIAL ZINC PASTE 113 GM TP SCH ×4 (09:00→21:00)
[2022-07-20] MEDS: levETIRAcetam 500 MG/5 ML LIQUID UDC GT SCH ×2 (09:00→21:00)
[2022-07-20] MEDS: HYDROGEN PEROXIDE 3% 118 ML BOTTLE TP SCH ×2 (09:00→21:00)
[2022-07-20] MEDS: METOPROLOL TARTRATE 50 MG TABLET GT SCH ×2 (09:00→21:00)
[2022-07-20] MEDS: ASCORBIC ACID 500 MG TABLET GT SCH (09:00)
[2022-07-20] MEDS: ENOXAPARIN SODIUM 40 MG/0.4 ML DISP.SYRIN SQ SCH (21:00)
[2022-07-20] MEDS: HYDROCODONE/APAP 10-325 MG TABLET GT PRN (22:00)
[2022-07-21] VITALS (10 sets, daily range): TEMP 98–98.2; O2SAT 97–99
[2022-07-21] MEDS: ALBUTEROL SULFATE 2.5 MG/3 ML NEBU NEB SCH ×4 (01:15→19:00)
[2022-07-21] MEDS: IPRATROPIUM BROMIDE 0.5 MG/2.5 ML NEBU NEB SCH ×4 (01:15→19:00)
[2022-07-21] MEDS: JEVITY 1.2 1000 ML LIQUID GT PRN ×2 (02:58→17:10)
[2022-07-21] MEDS: PANTOPRAZOLE ORAL SUSPENSION 40 MG SUSPDR.PKT GT SCH (06:14)
[2022-07-21] MEDS: HYDROGEN PEROXIDE 3% 118 ML BOTTLE TP SCH ×2 (07:45→20:15)
[2022-07-21] MEDS: levETIRAcetam 500 MG/5 ML LIQUID UDC GT SCH ×2 (08:43→21:00)
[2022-07-21] MEDS: ACIDOPHILUS/BULGARICUS CHEW TAB GT SCH ×2 (08:43→21:00)
[2022-07-21] MEDS: ASCORBIC ACID 500 MG TABLET GT SCH (08:44)
[2022-07-21] MEDS: REMEDY ESSENTIAL ZINC PASTE 113 GM TP SCH ×4 (08:44→21:00)
[2022-07-21] MEDS: METOPROLOL TARTRATE 50 MG TABLET GT SCH ×2 (08:44→21:00)
[2022-07-21] MEDS: CLOPIDOGREL 75 MG TABLET GT SCH (08:44)
[2022-07-21] MEDS: ENOXAPARIN SODIUM 40 MG/0.4 ML DISP.SYRIN SQ SCH (21:00)
[2022-07-22] VITALS (10 sets, daily range): TEMP 97.8–98; O2SAT 96–99
[2022-07-22] MEDS: ALBUTEROL SULFATE 2.5 MG/3 ML NEBU NEB SCH ×4 (01:12→19:23)
[2022-07-22] MEDS: IPRATROPIUM BROMIDE 0.5 MG/2.5 ML NEBU NEB SCH ×4 (01:12→19:23)
[2022-07-22] MEDS: PANTOPRAZOLE ORAL SUSPENSION 40 MG SUSPDR.PKT GT SCH (06:46)
[2022-07-22] MEDS: HYDROGEN PEROXIDE 3% 118 ML BOTTLE TP SCH ×2 (09:13→21:13)
[2022-07-22] MEDS: levETIRAcetam 500 MG/5 ML LIQUID UDC GT SCH ×2 (09:24→21:11)
[2022-07-22] MEDS: CLOPIDOGREL 75 MG TABLET GT SCH (09:24)
[2022-07-22] MEDS: ASCORBIC ACID 500 MG TABLET GT SCH (09:24)
[2022-07-22] MEDS: ACIDOPHILUS/BULGARICUS CHEW TAB GT SCH ×2 (09:24→21:11)
[2022-07-22] MEDS: METOPROLOL TARTRATE 50 MG TABLET GT SCH ×2 (09:24→21:12)
[2022-07-22] MEDS: REMEDY ESSENTIAL ZINC PASTE 113 GM TP SCH ×4 (09:25→21:14)
[2022-07-22] MEDS: JEVITY 1.2 1000 ML LIQUID GT PRN (10:53)
[2022-07-22] MEDS: ENOXAPARIN SODIUM 40 MG/0.4 ML DISP.SYRIN SQ SCH (21:15)
[2022-07-23] VITALS (10 sets, daily range): TEMP 98.6–98.8; O2SAT 98–99
[2022-07-23] MEDS: ALBUTEROL SULFATE 2.5 MG/3 ML NEBU NEB SCH ×4 (01:15→20:00)
[2022-07-23] MEDS: IPRATROPIUM BROMIDE 0.5 MG/2.5 ML NEBU NEB SCH ×4 (01:15→20:00)
[2022-07-23] MEDS: JEVITY 1.2 1000 ML LIQUID GT PRN ×2 (03:15→21:30)
[2022-07-23] MEDS: PANTOPRAZOLE ORAL SUSPENSION 40 MG SUSPDR.PKT GT SCH (05:50)
[2022-07-23] MEDS: HYDROGEN PEROXIDE 3% 118 ML BOTTLE TP SCH ×2 (08:07→21:03)
[2022-07-23] MEDS: METOPROLOL TARTRATE 50 MG TABLET GT SCH ×2 (08:38→21:09)
[2022-07-23] MEDS: ACIDOPHILUS/BULGARICUS CHEW TAB GT SCH ×2 (08:38→21:05)
[2022-07-23] MEDS: levETIRAcetam 500 MG/5 ML LIQUID UDC GT SCH ×2 (08:38→21:07)
[2022-07-23] MEDS: CLOPIDOGREL 75 MG TABLET GT SCH (08:39)
[2022-07-23] MEDS: ASCORBIC ACID 500 MG TABLET GT SCH (08:39)
[2022-07-23] MEDS: REMEDY ESSENTIAL ZINC PASTE 113 GM TP SCH ×4 (08:39→21:12)
[2022-07-23] MEDS: ENOXAPARIN SODIUM 40 MG/0.4 ML DISP.SYRIN SQ SCH (21:11)
[2022-07-24] VITALS (9 sets, daily range): TEMP 98; O2SAT 96–99
[2022-07-24] MEDS: IPRATROPIUM BROMIDE 0.5 MG/2.5 ML NEBU NEB SCH ×4 (01:00→19:50)
[2022-07-24] MEDS: ALBUTEROL SULFATE 2.5 MG/3 ML NEBU NEB SCH ×4 (01:00→19:50)
[2022-07-24] MEDS: PANTOPRAZOLE ORAL SUSPENSION 40 MG SUSPDR.PKT GT SCH (05:49)
[2022-07-24] MEDS: HYDROGEN PEROXIDE 3% 118 ML BOTTLE TP SCH ×2 (08:08→21:21)
[2022-07-24] MEDS: REMEDY ESSENTIAL ZINC PASTE 113 GM TP SCH ×4 (09:19→21:50)
[2022-07-24] MEDS: ACIDOPHILUS/BULGARICUS CHEW TAB GT SCH ×2 (09:19→21:50)
[2022-07-24] MEDS: METOPROLOL TARTRATE 50 MG TABLET GT SCH ×2 (09:19→21:00)
[2022-07-24] MEDS: levETIRAcetam 500 MG/5 ML LIQUID UDC GT SCH ×2 (09:19→21:50)
[2022-07-24] MEDS: CLOPIDOGREL 75 MG TABLET GT SCH (09:19)
[2022-07-24] MEDS: ASCORBIC ACID 500 MG TABLET GT SCH (09:19)
[2022-07-24] MEDS: ENOXAPARIN SODIUM 40 MG/0.4 ML DISP.SYRIN SQ SCH (21:00)
[2022-07-25] VITALS (10 sets, daily range): TEMP 97.6–97.8; O2SAT 96–99
[2022-07-25] MEDS: ALBUTEROL SULFATE 2.5 MG/3 ML NEBU NEB SCH ×4 (01:11→20:18)
[2022-07-25] MEDS: IPRATROPIUM BROMIDE 0.5 MG/2.5 ML NEBU NEB SCH ×4 (01:11→20:18)
[2022-07-25] MEDS: JEVITY 1.2 1000 ML LIQUID GT PRN (06:58)
[2022-07-25] MEDS: PANTOPRAZOLE ORAL SUSPENSION 40 MG SUSPDR.PKT GT SCH (06:58)
[2022-07-25] MEDS: HYDROGEN PEROXIDE 3% 118 ML BOTTLE TP SCH ×2 (08:11→21:14)
[2022-07-25] MEDS: levETIRAcetam 500 MG/5 ML LIQUID UDC GT SCH ×2 (09:20→21:00)
[2022-07-25] MEDS: ACIDOPHILUS/BULGARICUS CHEW TAB GT SCH ×2 (09:20→21:00)
[2022-07-25] MEDS: METOPROLOL TARTRATE 50 MG TABLET GT SCH ×2 (09:21→21:00)
[2022-07-25] MEDS: CLOPIDOGREL 75 MG TABLET GT SCH (09:21)
[2022-07-25] MEDS: REMEDY ESSENTIAL ZINC PASTE 113 GM TP SCH ×4 (09:21→21:00)
[2022-07-25] MEDS: ASCORBIC ACID 500 MG TABLET GT SCH (09:21)
[2022-07-25] MEDS: ENOXAPARIN SODIUM 40 MG/0.4 ML DISP.SYRIN SQ SCH (21:00)
[2022-07-26] VITALS (12 sets, daily range): TEMP 97.6–98.4; O2SAT 96–99
[2022-07-26] MEDS: IPRATROPIUM BROMIDE 0.5 MG/2.5 ML NEBU NEB SCH ×4 (01:10→19:30)
[2022-07-26] MEDS: ALBUTEROL SULFATE 2.5 MG/3 ML NEBU NEB SCH ×4 (01:11→19:30)
[2022-07-26] MEDS: PANTOPRAZOLE ORAL SUSPENSION 40 MG SUSPDR.PKT GT SCH (06:21)
[2022-07-26] MEDS: METOPROLOL TARTRATE 50 MG TABLET GT SCH ×2 (08:52→20:37)
[2022-07-26] MEDS: levETIRAcetam 500 MG/5 ML LIQUID UDC GT SCH ×2 (08:52→20:36)
[2022-07-26] MEDS: ACIDOPHILUS/BULGARICUS CHEW TAB GT SCH ×2 (08:52→20:36)
[2022-07-26] MEDS: REMEDY ESSENTIAL ZINC PASTE 113 GM TP SCH ×4 (08:53→20:38)
[2022-07-26] MEDS: CLOPIDOGREL 75 MG TABLET GT SCH (08:53)
[2022-07-26] MEDS: ASCORBIC ACID 500 MG TABLET GT SCH (08:53)
[2022-07-26] MEDS: HYDROGEN PEROXIDE 3% 118 ML BOTTLE TP SCH ×2 (09:32→21:54)
[2022-07-26] MEDS: ENOXAPARIN SODIUM 40 MG/0.4 ML DISP.SYRIN SQ SCH (20:37)
[2022-07-27] VITALS (10 sets, daily range): TEMP 98.3–98.6; O2SAT 96–99
[2022-07-27] MEDS: IPRATROPIUM BROMIDE 0.5 MG/2.5 ML NEBU NEB SCH ×4 (01:00→19:30)
[2022-07-27] MEDS: ALBUTEROL SULFATE 2.5 MG/3 ML NEBU NEB SCH ×4 (01:00→19:30)
[2022-07-27] MEDS: PANTOPRAZOLE ORAL SUSPENSION 40 MG SUSPDR.PKT GT SCH (05:33)
[2022-07-27] MEDS: HYDROGEN PEROXIDE 3% 118 ML BOTTLE TP SCH ×2 (07:26→21:29)
[2022-07-27] MEDS: CLOPIDOGREL 75 MG TABLET GT SCH (08:56)
[2022-07-27] MEDS: ASCORBIC ACID 500 MG TABLET GT SCH (08:56)
[2022-07-27] MEDS: METOPROLOL TARTRATE 50 MG TABLET GT SCH ×2 (08:56→21:23)
[2022-07-27] MEDS: levETIRAcetam 500 MG/5 ML LIQUID UDC GT SCH ×2 (08:56→21:22)
[2022-07-27] MEDS: ACIDOPHILUS/BULGARICUS CHEW TAB GT SCH ×2 (08:56→21:22)
[2022-07-27] MEDS: REMEDY ESSENTIAL ZINC PASTE 113 GM TP SCH ×4 (08:56→21:23)
[2022-07-27] MEDS: JEVITY 1.2 1000 ML LIQUID GT PRN (12:39)
[2022-07-27] MEDS: ENOXAPARIN SODIUM 40 MG/0.4 ML DISP.SYRIN SQ SCH (21:00)
[2022-07-28] VITALS (10 sets, daily range): TEMP 97.8–98.9; O2SAT 97–99
[2022-07-28] MEDS: IPRATROPIUM BROMIDE 0.5 MG/2.5 ML NEBU NEB SCH ×4 (01:12→19:28)
[2022-07-28] MEDS: ALBUTEROL SULFATE 2.5 MG/3 ML NEBU NEB SCH ×4 (01:12→19:28)
[2022-07-28] MEDS: JEVITY 1.2 1000 ML LIQUID GT PRN ×2 (04:00→21:43)
[2022-07-28] MEDS: PANTOPRAZOLE ORAL SUSPENSION 40 MG SUSPDR.PKT GT SCH (05:34)
[2022-07-28] MEDS: HYDROGEN PEROXIDE 3% 118 ML BOTTLE TP SCH ×2 (07:23→19:28)
[2022-07-28] MEDS: ACIDOPHILUS/BULGARICUS CHEW TAB GT SCH ×2 (08:56→21:25)
[2022-07-28] MEDS: levETIRAcetam 500 MG/5 ML LIQUID UDC GT SCH ×2 (08:56→21:26)
[2022-07-28] MEDS: METOPROLOL TARTRATE 50 MG TABLET GT SCH ×2 (08:56→21:26)
[2022-07-28] MEDS: ASCORBIC ACID 500 MG TABLET GT SCH (08:57)
[2022-07-28] MEDS: CLOPIDOGREL 75 MG TABLET GT SCH (08:57)
[2022-07-28] MEDS: REMEDY ESSENTIAL ZINC PASTE 113 GM TP SCH ×4 (08:57→21:28)
[2022-07-28] MEDS: TRIAMCINOLONE ACET 0.1% CREAM 15 GM TUBE TP SCH (21:27)
[2022-07-28] MEDS: ENOXAPARIN SODIUM 40 MG/0.4 ML DISP.SYRIN SQ SCH (21:27)
[2022-07-29] VITALS (10 sets, daily range): TEMP 99.1–99.3; O2SAT 97–99
[2022-07-29] MEDS: IPRATROPIUM BROMIDE 0.5 MG/2.5 ML NEBU NEB SCH ×4 (01:20→20:00)
[2022-07-29] MEDS: ALBUTEROL SULFATE 2.5 MG/3 ML NEBU NEB SCH ×4 (01:20→20:00)
[2022-07-29] MEDS: PANTOPRAZOLE ORAL SUSPENSION 40 MG SUSPDR.PKT GT SCH (06:00)
[2022-07-29] MEDS: METOPROLOL TARTRATE 50 MG TABLET GT SCH ×2 (08:26→21:03)
[2022-07-29] MEDS: ACIDOPHILUS/BULGARICUS CHEW TAB GT SCH ×2 (08:26→21:02)
[2022-07-29] MEDS: levETIRAcetam 500 MG/5 ML LIQUID UDC GT SCH ×2 (08:26→21:02)
[2022-07-29] MEDS: CLOPIDOGREL 75 MG TABLET GT SCH (08:26)
[2022-07-29] MEDS: ASCORBIC ACID 500 MG TABLET GT SCH (08:27)
[2022-07-29] MEDS: REMEDY ESSENTIAL ZINC PASTE 113 GM TP SCH ×4 (08:27→21:04)
[2022-07-29] MEDS: HYDROGEN PEROXIDE 3% 118 ML BOTTLE TP SCH ×2 (09:26→20:48)
[2022-07-29] MEDS: TRIAMCINOLONE ACET 0.1% CREAM 15 GM TUBE TP SCH ×2 (09:59→21:04)
[2022-07-29] MEDS: JEVITY 1.2 1000 ML LIQUID GT PRN (15:49)
[2022-07-29] MEDS: ENOXAPARIN SODIUM 40 MG/0.4 ML DISP.SYRIN SQ SCH (21:04)
[2022-07-30] VITALS (10 sets, daily range): TEMP 97–98.8; O2SAT 97–99
[2022-07-30] MEDS: IPRATROPIUM BROMIDE 0.5 MG/2.5 ML NEBU NEB SCH ×4 (01:27→19:14)
[2022-07-30] MEDS: ALBUTEROL SULFATE 2.5 MG/3 ML NEBU NEB SCH ×4 (01:27→19:14)
[2022-07-30] MEDS: PANTOPRAZOLE ORAL SUSPENSION 40 MG SUSPDR.PKT GT SCH (05:14)
[2022-07-30] MEDS: HYDROGEN PEROXIDE 3% 118 ML BOTTLE TP SCH ×2 (07:31→19:14)
[2022-07-30] MEDS: ASCORBIC ACID 500 MG TABLET GT SCH (08:54)
[2022-07-30] MEDS: REMEDY ESSENTIAL ZINC PASTE 113 GM TP SCH ×4 (08:54→20:57)
[2022-07-30] MEDS: CLOPIDOGREL 75 MG TABLET GT SCH (08:54)
[2022-07-30] MEDS: METOPROLOL TARTRATE 50 MG TABLET GT SCH ×2 (08:54→20:57)
[2022-07-30] MEDS: levETIRAcetam 500 MG/5 ML LIQUID UDC GT SCH ×2 (08:54→20:56)
[2022-07-30] MEDS: ACIDOPHILUS/BULGARICUS CHEW TAB GT SCH ×2 (08:54→20:56)
[2022-07-30] MEDS: TRIAMCINOLONE ACET 0.1% CREAM 15 GM TUBE TP SCH ×2 (08:54→20:57)
[2022-07-30] MEDS: ENOXAPARIN SODIUM 40 MG/0.4 ML DISP.SYRIN SQ SCH (21:51)
[2022-07-31] VITALS (10 sets, daily range): TEMP 98.4–98.8; O2SAT 97–99
[2022-07-31] MEDS: ALBUTEROL SULFATE 2.5 MG/3 ML NEBU NEB SCH ×4 (01:11→19:13)
[2022-07-31] MEDS: IPRATROPIUM BROMIDE 0.5 MG/2.5 ML NEBU NEB SCH ×4 (01:11→19:13)
[2022-07-31] MEDS: JEVITY 1.2 1000 ML LIQUID GT PRN ×2 (04:23→22:28)
[2022-07-31] MEDS: PANTOPRAZOLE ORAL SUSPENSION 40 MG SUSPDR.PKT GT SCH (05:29)
[2022-07-31] MEDS: HYDROGEN PEROXIDE 3% 118 ML BOTTLE TP SCH ×2 (09:50→19:13)
[2022-07-31] MEDS: levETIRAcetam 500 MG/5 ML LIQUID UDC GT SCH ×2 (09:58→21:05)
[2022-07-31] MEDS: REMEDY ESSENTIAL ZINC PASTE 113 GM TP SCH ×4 (09:58→21:06)
[2022-07-31] MEDS: TRIAMCINOLONE ACET 0.1% CREAM 15 GM TUBE TP SCH ×2 (09:58→21:06)
[2022-07-31] MEDS: CLOPIDOGREL 75 MG TABLET GT SCH (09:58)
[2022-07-31] MEDS: ASCORBIC ACID 500 MG TABLET GT SCH (09:58)
[2022-07-31] MEDS: METOPROLOL TARTRATE 50 MG TABLET GT SCH ×2 (09:58→21:06)
[2022-07-31] MEDS: ACIDOPHILUS/BULGARICUS CHEW TAB GT SCH ×2 (09:58→21:05)
[2022-07-31] MEDS: ENOXAPARIN SODIUM 40 MG/0.4 ML DISP.SYRIN SQ SCH (21:59)
[2022-08-01] VITALS (10 sets, daily range): TEMP 97.6–98.8; O2SAT 97–99
[2022-08-01] MEDS: IPRATROPIUM BROMIDE 0.5 MG/2.5 ML NEBU NEB SCH ×4 (01:03→19:04)
[2022-08-01] MEDS: ALBUTEROL SULFATE 2.5 MG/3 ML NEBU NEB SCH ×4 (01:03→19:04)
[2022-08-01] MEDS: PANTOPRAZOLE ORAL SUSPENSION 40 MG SUSPDR.PKT GT SCH (05:15)
[2022-08-01] MEDS: HYDROGEN PEROXIDE 3% 118 ML BOTTLE TP SCH ×2 (07:55→19:04)
[2022-08-01] MEDS: ASCORBIC ACID 500 MG TABLET GT SCH (09:48)
[2022-08-01] MEDS: CLOPIDOGREL 75 MG TABLET GT SCH (09:48)
[2022-08-01] MEDS: ACIDOPHILUS/BULGARICUS CHEW TAB GT SCH ×2 (09:48→20:51)
[2022-08-01] MEDS: TRIAMCINOLONE ACET 0.1% CREAM 15 GM TUBE TP SCH ×2 (09:48→20:51)
[2022-08-01] MEDS: levETIRAcetam 500 MG/5 ML LIQUID UDC GT SCH ×2 (09:48→20:51)
[2022-08-01] MEDS: METOPROLOL TARTRATE 50 MG TABLET GT SCH ×2 (09:48→20:51)
[2022-08-01] MEDS: REMEDY ESSENTIAL ZINC PASTE 113 GM TP SCH ×4 (09:49→20:51)
[2022-08-01] MEDS: JEVITY 1.2 1000 ML LIQUID GT PRN (13:20)
[2022-08-01] MEDS: ENOXAPARIN SODIUM 40 MG/0.4 ML DISP.SYRIN SQ SCH (21:49)
[2022-08-02] VITALS (10 sets, daily range): TEMP 97.7; O2SAT 97–99
[2022-08-02] MEDS: IPRATROPIUM BROMIDE 0.5 MG/2.5 ML NEBU NEB SCH ×4 (01:05→19:15)
[2022-08-02] MEDS: ALBUTEROL SULFATE 2.5 MG/3 ML NEBU NEB SCH ×4 (01:05→19:15)
[2022-08-02] MEDS: JEVITY 1.2 1000 ML LIQUID GT PRN ×2 (04:56→21:00)
[2022-08-02] MEDS: PANTOPRAZOLE ORAL SUSPENSION 40 MG SUSPDR.PKT GT SCH (05:04)
[2022-08-02] MEDS: ACIDOPHILUS/BULGARICUS CHEW TAB GT SCH ×2 (09:14→21:00)
[2022-08-02] MEDS: METOPROLOL TARTRATE 50 MG TABLET GT SCH ×2 (09:14→21:30)
[2022-08-02] MEDS: CLOPIDOGREL 75 MG TABLET GT SCH (09:14)
[2022-08-02] MEDS: levETIRAcetam 500 MG/5 ML LIQUID UDC GT SCH ×2 (09:14→21:30)
[2022-08-02] MEDS: ASCORBIC ACID 500 MG TABLET GT SCH (09:15)
[2022-08-02] MEDS: REMEDY ESSENTIAL ZINC PASTE 113 GM TP SCH ×4 (09:15→21:30)
[2022-08-02] MEDS: TRIAMCINOLONE ACET 0.1% CREAM 15 GM TUBE TP SCH ×2 (09:15→21:30)
[2022-08-02] MEDS: HYDROGEN PEROXIDE 3% 118 ML BOTTLE TP SCH ×2 (09:46→21:15)
[2022-08-02] MEDS: ENOXAPARIN SODIUM 40 MG/0.4 ML DISP.SYRIN SQ SCH (21:30)
[2022-08-03] VITALS (10 sets, daily range): TEMP 98.2–98.4; O2SAT 97–99
[2022-08-03] MEDS: ALBUTEROL SULFATE 2.5 MG/3 ML NEBU NEB SCH ×4 (02:01→19:50)
[2022-08-03] MEDS: IPRATROPIUM BROMIDE 0.5 MG/2.5 ML NEBU NEB SCH ×4 (02:01→19:50)
[2022-08-03] MEDS: PANTOPRAZOLE ORAL SUSPENSION 40 MG SUSPDR.PKT GT SCH (05:31)
[2022-08-03] MEDS: CLOPIDOGREL 75 MG TABLET GT SCH (08:20)
[2022-08-03] MEDS: levETIRAcetam 500 MG/5 ML LIQUID UDC GT SCH ×2 (08:20→21:00)
[2022-08-03] MEDS: ACIDOPHILUS/BULGARICUS CHEW TAB GT SCH ×2 (08:20→21:00)
[2022-08-03] MEDS: METOPROLOL TARTRATE 50 MG TABLET GT SCH ×2 (08:20→21:00)
[2022-08-03] MEDS: ASCORBIC ACID 500 MG TABLET GT SCH (08:20)
[2022-08-03] MEDS: TRIAMCINOLONE ACET 0.1% CREAM 15 GM TUBE TP SCH ×2 (08:22→21:00)
[2022-08-03] MEDS: REMEDY ESSENTIAL ZINC PASTE 113 GM TP SCH ×4 (08:22→21:00)
[2022-08-03] MEDS: HYDROGEN PEROXIDE 3% 118 ML BOTTLE TP SCH ×2 (09:40→21:00)
[2022-08-03] MEDS: JEVITY 1.2 1000 ML LIQUID GT PRN (16:56)
[2022-08-03] MEDS: ENOXAPARIN SODIUM 40 MG/0.4 ML DISP.SYRIN SQ SCH (21:00)
[2022-08-04] VITALS (10 sets, daily range): TEMP 97.6–98.6; O2SAT 97–99
[2022-08-04] MEDS: IPRATROPIUM BROMIDE 0.5 MG/2.5 ML NEBU NEB SCH ×4 (01:30→19:20)
[2022-08-04] MEDS: ALBUTEROL SULFATE 2.5 MG/3 ML NEBU NEB SCH ×4 (01:30→19:20)
[2022-08-04] MEDS: PANTOPRAZOLE ORAL SUSPENSION 40 MG SUSPDR.PKT GT SCH (06:00)
[2022-08-04] MEDS: HYDROGEN PEROXIDE 3% 118 ML BOTTLE TP SCH ×2 (07:18→21:00)
[2022-08-04] MEDS: ACIDOPHILUS/BULGARICUS CHEW TAB GT SCH ×2 (09:16→21:00)
[2022-08-04] MEDS: METOPROLOL TARTRATE 50 MG TABLET GT SCH ×2 (09:16→21:00)
[2022-08-04] MEDS: CLOPIDOGREL 75 MG TABLET GT SCH (09:16)
[2022-08-04] MEDS: levETIRAcetam 500 MG/5 ML LIQUID UDC GT SCH ×2 (09:16→21:00)
[2022-08-04] MEDS: TRIAMCINOLONE ACET 0.1% CREAM 15 GM TUBE TP SCH ×2 (09:17→21:00)
[2022-08-04] MEDS: ASCORBIC ACID 500 MG TABLET GT SCH (09:17)
[2022-08-04] MEDS: REMEDY ESSENTIAL ZINC PASTE 113 GM TP SCH ×4 (09:17→21:00)
[2022-08-04] MEDS: ACETAMINOPHEN 650 MG/20 ML UDC- SA PATIENTS-PAIN ONLY GT PRN (09:18)
[2022-08-04] MEDS: JEVITY 1.2 1000 ML LIQUID GT PRN (11:58)
[2022-08-04] MEDS: ENOXAPARIN SODIUM 40 MG/0.4 ML DISP.SYRIN SQ SCH (21:00)
[2022-08-05] VITALS (10 sets, daily range): TEMP 98.2–98.8; O2SAT 97–99
[2022-08-05] MEDS: IPRATROPIUM BROMIDE 0.5 MG/2.5 ML NEBU NEB SCH ×4 (00:49→19:30)
[2022-08-05] MEDS: ALBUTEROL SULFATE 2.5 MG/3 ML NEBU NEB SCH ×4 (00:49→19:30)
[2022-08-05] MEDS: PANTOPRAZOLE ORAL SUSPENSION 40 MG SUSPDR.PKT GT SCH (05:54)
[2022-08-05] MEDS: JEVITY 1.2 1000 ML LIQUID GT PRN ×2 (05:54→22:36)
[2022-08-05] MEDS: METOPROLOL TARTRATE 50 MG TABLET GT SCH ×2 (09:00→21:00)
[2022-08-05] MEDS: CLOPIDOGREL 75 MG TABLET GT SCH (09:10)
[2022-08-05] MEDS: REMEDY ESSENTIAL ZINC PASTE 113 GM TP SCH ×4 (09:10→21:00)
[2022-08-05] MEDS: ASCORBIC ACID 500 MG TABLET GT SCH (09:10)
[2022-08-05] MEDS: HYDROGEN PEROXIDE 3% 118 ML BOTTLE TP SCH ×2 (09:10→21:00)
[2022-08-05] MEDS: TRIAMCINOLONE ACET 0.1% CREAM 15 GM TUBE TP SCH ×2 (09:10→21:00)
[2022-08-05] MEDS: levETIRAcetam 500 MG/5 ML LIQUID UDC GT SCH ×2 (09:14→21:00)
[2022-08-05] MEDS: ACIDOPHILUS/BULGARICUS CHEW TAB GT SCH ×2 (09:14→21:00)
[2022-08-05] MEDS: ENOXAPARIN SODIUM 40 MG/0.4 ML DISP.SYRIN SQ SCH (21:00)
[2022-08-06] VITALS (8 sets, daily range): TEMP 99.2; O2SAT 98–99
[2022-08-06] MEDS: IPRATROPIUM BROMIDE 0.5 MG/2.5 ML NEBU NEB SCH ×4 (00:51→19:45)
[2022-08-06] MEDS: ALBUTEROL SULFATE 2.5 MG/3 ML NEBU NEB SCH ×4 (00:51→19:45)
[2022-08-06] MEDS: PANTOPRAZOLE ORAL SUSPENSION 40 MG SUSPDR.PKT GT SCH (06:25)
[2022-08-06] MEDS: HYDROGEN PEROXIDE 3% 118 ML BOTTLE TP SCH ×2 (08:12→21:00)
[2022-08-06] MEDS: ACIDOPHILUS/BULGARICUS CHEW TAB GT SCH ×2 (08:45→20:59)
[2022-08-06] MEDS: REMEDY ESSENTIAL ZINC PASTE 113 GM TP SCH ×4 (08:45→21:06)
[2022-08-06] MEDS: levETIRAcetam 500 MG/5 ML LIQUID UDC GT SCH ×2 (08:45→21:03)
[2022-08-06] MEDS: CLOPIDOGREL 75 MG TABLET GT SCH (08:45)
[2022-08-06] MEDS: ASCORBIC ACID 500 MG TABLET GT SCH (08:45)
[2022-08-06] MEDS: METOPROLOL TARTRATE 50 MG TABLET GT SCH ×2 (08:45→21:04)
[2022-08-06] MEDS: TRIAMCINOLONE ACET 0.1% CREAM 15 GM TUBE TP SCH ×2 (08:45→21:05)
[2022-08-06] MEDS: ENOXAPARIN SODIUM 40 MG/0.4 ML DISP.SYRIN SQ SCH (21:05)
[2022-08-07] VITALS (10 sets, daily range): TEMP 98.3–98.4; O2SAT 98–99
[2022-08-07] MEDS: ALBUTEROL SULFATE 2.5 MG/3 ML NEBU NEB SCH ×4 (01:35→19:32)
[2022-08-07] MEDS: IPRATROPIUM BROMIDE 0.5 MG/2.5 ML NEBU NEB SCH ×4 (01:35→19:32)
[2022-08-07] MEDS: JEVITY 1.2 1000 ML LIQUID GT PRN (05:00)
[2022-08-07] MEDS: PANTOPRAZOLE ORAL SUSPENSION 40 MG SUSPDR.PKT GT SCH (05:24)
[2022-08-07] MEDS: HYDROGEN PEROXIDE 3% 118 ML BOTTLE TP SCH ×2 (07:55→21:25)
[2022-08-07] MEDS: ASCORBIC ACID 500 MG TABLET GT SCH (09:18)
[2022-08-07] MEDS: TRIAMCINOLONE ACET 0.1% CREAM 15 GM TUBE TP SCH ×2 (09:18→21:00)
[2022-08-07] MEDS: METOPROLOL TARTRATE 50 MG TABLET GT SCH ×2 (09:18→21:00)
[2022-08-07] MEDS: levETIRAcetam 500 MG/5 ML LIQUID UDC GT SCH ×2 (09:18→21:00)
[2022-08-07] MEDS: REMEDY ESSENTIAL ZINC PASTE 113 GM TP SCH ×4 (09:18→21:00)
[2022-08-07] MEDS: ACIDOPHILUS/BULGARICUS CHEW TAB GT SCH ×2 (09:18→21:00)
[2022-08-07] MEDS: CLOPIDOGREL 75 MG TABLET GT SCH (09:18)
[2022-08-07] MEDS: ENOXAPARIN SODIUM 40 MG/0.4 ML DISP.SYRIN SQ SCH (21:00)
[2022-08-08] VITALS (10 sets, daily range): TEMP 98.4–98.5; O2SAT 98–99
[2022-08-08] MEDS: ALBUTEROL SULFATE 2.5 MG/3 ML NEBU NEB SCH ×4 (01:10→19:30)
[2022-08-08] MEDS: IPRATROPIUM BROMIDE 0.5 MG/2.5 ML NEBU NEB SCH ×4 (01:10→19:30)
[2022-08-08] MEDS: JEVITY 1.2 1000 ML LIQUID GT PRN (06:00)
[2022-08-08] MEDS: PANTOPRAZOLE ORAL SUSPENSION 40 MG SUSPDR.PKT GT SCH (06:56)
[2022-08-08] MEDS: HYDROGEN PEROXIDE 3% 118 ML BOTTLE TP SCH ×2 (07:24→21:17)
[2022-08-08] MEDS: METOPROLOL TARTRATE 50 MG TABLET GT SCH ×2 (08:48→20:44)
[2022-08-08] MEDS: REMEDY ESSENTIAL ZINC PASTE 113 GM TP SCH ×4 (08:48→20:45)
[2022-08-08] MEDS: levETIRAcetam 500 MG/5 ML LIQUID UDC GT SCH ×2 (08:48→20:41)
[2022-08-08] MEDS: ASCORBIC ACID 500 MG TABLET GT SCH (08:48)
[2022-08-08] MEDS: CLOPIDOGREL 75 MG TABLET GT SCH (08:48)
[2022-08-08] MEDS: ACIDOPHILUS/BULGARICUS CHEW TAB GT SCH ×2 (08:48→20:41)
[2022-08-08] MEDS: TRIAMCINOLONE ACET 0.1% CREAM 15 GM TUBE TP SCH ×2 (09:00→20:45)
[2022-08-08] MEDS: ENOXAPARIN SODIUM 40 MG/0.4 ML DISP.SYRIN SQ SCH (20:43)
[2022-08-09] VITALS (11 sets, daily range): TEMP 98.6–98.7; O2SAT 98–99
[2022-08-09] MEDS: ALBUTEROL SULFATE 2.5 MG/3 ML NEBU NEB SCH ×4 (01:10→19:26)
[2022-08-09] MEDS: IPRATROPIUM BROMIDE 0.5 MG/2.5 ML NEBU NEB SCH ×4 (01:10→19:26)
[2022-08-09] MEDS: PANTOPRAZOLE ORAL SUSPENSION 40 MG SUSPDR.PKT GT SCH (05:41)
[2022-08-09] MEDS: JEVITY 1.2 1000 ML LIQUID GT PRN (07:04)
[2022-08-09] MEDS: HYDROGEN PEROXIDE 3% 118 ML BOTTLE TP SCH ×2 (09:00→21:06)
[2022-08-09] MEDS: levETIRAcetam 500 MG/5 ML LIQUID UDC GT SCH ×2 (09:17→21:00)
[2022-08-09] MEDS: ACIDOPHILUS/BULGARICUS CHEW TAB GT SCH ×2 (09:17→21:00)
[2022-08-09] MEDS: TRIAMCINOLONE ACET 0.1% CREAM 15 GM TUBE TP SCH ×2 (09:18→21:00)
[2022-08-09] MEDS: REMEDY ESSENTIAL ZINC PASTE 113 GM TP SCH ×4 (09:18→21:00)
[2022-08-09] MEDS: ASCORBIC ACID 500 MG TABLET GT SCH (09:18)
[2022-08-09] MEDS: METOPROLOL TARTRATE 50 MG TABLET GT SCH ×2 (09:18→21:00)
[2022-08-09] MEDS: CLOPIDOGREL 75 MG TABLET GT SCH (09:18)
[2022-08-09] MEDS: ENOXAPARIN SODIUM 40 MG/0.4 ML DISP.SYRIN SQ SCH (21:00)
[2022-08-10] VITALS (10 sets, daily range): TEMP 98.4–99; O2SAT 98–99
[2022-08-10] MEDS: ALBUTEROL SULFATE 2.5 MG/3 ML NEBU NEB SCH ×4 (01:11→19:50)
[2022-08-10] MEDS: IPRATROPIUM BROMIDE 0.5 MG/2.5 ML NEBU NEB SCH ×4 (01:11→19:50)
[2022-08-10] MEDS: PANTOPRAZOLE ORAL SUSPENSION 40 MG SUSPDR.PKT GT SCH (05:46)
[2022-08-10] MEDS: HYDROGEN PEROXIDE 3% 118 ML BOTTLE TP SCH ×2 (09:43→20:35)
[2022-08-10] MEDS: METOPROLOL TARTRATE 50 MG TABLET GT SCH ×2 (09:44→21:45)
[2022-08-10] MEDS: ASCORBIC ACID 500 MG TABLET GT SCH (09:44)
[2022-08-10] MEDS: levETIRAcetam 500 MG/5 ML LIQUID UDC GT SCH ×2 (09:44→21:45)
[2022-08-10] MEDS: CLOPIDOGREL 75 MG TABLET GT SCH (09:44)
[2022-08-10] MEDS: ACIDOPHILUS/BULGARICUS CHEW TAB GT SCH ×2 (09:44→21:00)
[2022-08-10] MEDS: REMEDY ESSENTIAL ZINC PASTE 113 GM TP SCH ×4 (09:45→21:45)
[2022-08-10] MEDS: TRIAMCINOLONE ACET 0.1% CREAM 15 GM TUBE TP SCH ×2 (09:45→21:45)
[2022-08-10] MEDS: ENOXAPARIN SODIUM 40 MG/0.4 ML DISP.SYRIN SQ SCH (21:45)
[2022-08-11] VITALS (10 sets, daily range): TEMP 97.8–98.6; O2SAT 98–99
[2022-08-11] MEDS: IPRATROPIUM BROMIDE 0.5 MG/2.5 ML NEBU NEB SCH ×4 (01:50→19:41)
[2022-08-11] MEDS: ALBUTEROL SULFATE 2.5 MG/3 ML NEBU NEB SCH ×4 (01:50→19:41)
[2022-08-11] MEDS: PANTOPRAZOLE ORAL SUSPENSION 40 MG SUSPDR.PKT GT SCH (06:16)
[2022-08-11] MEDS: levETIRAcetam 500 MG/5 ML LIQUID UDC GT SCH ×2 (09:27→21:35)
[2022-08-11] MEDS: METOPROLOL TARTRATE 50 MG TABLET GT SCH ×2 (09:27→21:35)
[2022-08-11] MEDS: ACIDOPHILUS/BULGARICUS CHEW TAB GT SCH ×2 (09:27→21:34)
[2022-08-11] MEDS: TRIAMCINOLONE ACET 0.1% CREAM 15 GM TUBE TP SCH ×2 (09:28→21:36)
[2022-08-11] MEDS: ASCORBIC ACID 500 MG TABLET GT SCH (09:28)
[2022-08-11] MEDS: REMEDY ESSENTIAL ZINC PASTE 113 GM TP SCH ×4 (09:28→21:36)
[2022-08-11] MEDS: CLOPIDOGREL 75 MG TABLET GT SCH (09:28)
[2022-08-11] MEDS: HYDROGEN PEROXIDE 3% 118 ML BOTTLE TP SCH ×2 (09:57→19:41)
[2022-08-11] MEDS: ENOXAPARIN SODIUM 40 MG/0.4 ML DISP.SYRIN SQ SCH (21:36)
[2022-08-12] VITALS (10 sets, daily range): TEMP 98–98.6; O2SAT 98–99
[2022-08-12] MEDS: IPRATROPIUM BROMIDE 0.5 MG/2.5 ML NEBU NEB SCH ×4 (02:22→20:03)
[2022-08-12] MEDS: ALBUTEROL SULFATE 2.5 MG/3 ML NEBU NEB SCH ×4 (02:22→20:03)
[2022-08-12] MEDS: PANTOPRAZOLE ORAL SUSPENSION 40 MG SUSPDR.PKT GT SCH (05:39)
[2022-08-12] MEDS: ACIDOPHILUS/BULGARICUS CHEW TAB GT SCH ×2 (08:03→20:40)
[2022-08-12] MEDS: levETIRAcetam 500 MG/5 ML LIQUID UDC GT SCH ×2 (08:03→20:40)
[2022-08-12] MEDS: ASCORBIC ACID 500 MG TABLET GT SCH (08:04)
[2022-08-12] MEDS: REMEDY ESSENTIAL ZINC PASTE 113 GM TP SCH ×4 (08:04→20:44)
[2022-08-12] MEDS: METOPROLOL TARTRATE 50 MG TABLET GT SCH ×2 (08:04→20:42)
[2022-08-12] MEDS: CLOPIDOGREL 75 MG TABLET GT SCH (08:04)
[2022-08-12] MEDS: TRIAMCINOLONE ACET 0.1% CREAM 15 GM TUBE TP SCH ×2 (08:04→20:44)
[2022-08-12] MEDS: HYDROGEN PEROXIDE 3% 118 ML BOTTLE TP SCH ×2 (09:27→20:03)
[2022-08-12] MEDS: ENOXAPARIN SODIUM 40 MG/0.4 ML DISP.SYRIN SQ SCH (20:43)
[2022-08-13] VITALS (11 sets, daily range): TEMP 98–98.5; O2SAT 98–99
[2022-08-13] MEDS: ALBUTEROL SULFATE 2.5 MG/3 ML NEBU NEB SCH ×4 (00:36→19:32)
[2022-08-13] MEDS: IPRATROPIUM BROMIDE 0.5 MG/2.5 ML NEBU NEB SCH ×4 (00:36→19:32)
[2022-08-13] MEDS: JEVITY 1.2 1000 ML LIQUID GT PRN ×2 (01:46→22:14)
[2022-08-13] MEDS: PANTOPRAZOLE ORAL SUSPENSION 40 MG SUSPDR.PKT GT SCH (06:03)
[2022-08-13] MEDS: HYDROGEN PEROXIDE 3% 118 ML BOTTLE TP SCH ×2 (09:00→19:32)
[2022-08-13] MEDS: TRIAMCINOLONE ACET 0.1% CREAM 15 GM TUBE TP SCH ×2 (09:55→20:43)
[2022-08-13] MEDS: METOPROLOL TARTRATE 50 MG TABLET GT SCH ×2 (09:55→20:42)
[2022-08-13] MEDS: ASCORBIC ACID 500 MG TABLET GT SCH (09:55)
[2022-08-13] MEDS: levETIRAcetam 500 MG/5 ML LIQUID UDC GT SCH ×2 (09:55→20:41)
[2022-08-13] MEDS: ACIDOPHILUS/BULGARICUS CHEW TAB GT SCH ×2 (09:55→20:41)
[2022-08-13] MEDS: CLOPIDOGREL 75 MG TABLET GT SCH (09:55)
[2022-08-13] MEDS: REMEDY ESSENTIAL ZINC PASTE 113 GM TP SCH ×4 (09:56→20:43)
[2022-08-13] MEDS: ENOXAPARIN SODIUM 40 MG/0.4 ML DISP.SYRIN SQ SCH (20:43)
[2022-08-14] VITALS (10 sets, daily range): TEMP 98.9–99.1; O2SAT 98–99
[2022-08-14] MEDS: IPRATROPIUM BROMIDE 0.5 MG/2.5 ML NEBU NEB SCH ×4 (01:04→19:16)
[2022-08-14] MEDS: ALBUTEROL SULFATE 2.5 MG/3 ML NEBU NEB SCH ×4 (01:04→19:16)
[2022-08-14] MEDS: PANTOPRAZOLE ORAL SUSPENSION 40 MG SUSPDR.PKT GT SCH (05:43)
[2022-08-14] MEDS: HYDROGEN PEROXIDE 3% 118 ML BOTTLE TP SCH ×2 (08:41→19:10)
[2022-08-14] MEDS: ACIDOPHILUS/BULGARICUS CHEW TAB GT SCH ×2 (09:17→20:34)
[2022-08-14] MEDS: levETIRAcetam 500 MG/5 ML LIQUID UDC GT SCH ×2 (09:17→20:34)
[2022-08-14] MEDS: ASCORBIC ACID 500 MG TABLET GT SCH (09:18)
[2022-08-14] MEDS: CLOPIDOGREL 75 MG TABLET GT SCH (09:18)
[2022-08-14] MEDS: TRIAMCINOLONE ACET 0.1% CREAM 15 GM TUBE TP SCH ×2 (09:18→20:38)
[2022-08-14] MEDS: METOPROLOL TARTRATE 50 MG TABLET GT SCH ×2 (09:18→20:36)
[2022-08-14] MEDS: REMEDY ESSENTIAL ZINC PASTE 113 GM TP SCH ×4 (09:18→20:38)
[2022-08-14] MEDS: ENOXAPARIN SODIUM 40 MG/0.4 ML DISP.SYRIN SQ SCH (20:38)
[2022-08-15] VITALS (10 sets, daily range): TEMP 97.6–97.8; O2SAT 97–99
[2022-08-15] MEDS: IPRATROPIUM BROMIDE 0.5 MG/2.5 ML NEBU NEB SCH ×5 (00:45→19:20)
[2022-08-15] MEDS: ALBUTEROL SULFATE 2.5 MG/3 ML NEBU NEB SCH ×5 (00:45→19:20)
[2022-08-15] MEDS: JEVITY 1.2 1000 ML LIQUID GT PRN ×3 (03:38→21:11)
[2022-08-15] MEDS: PANTOPRAZOLE ORAL SUSPENSION 40 MG SUSPDR.PKT GT SCH (05:11)
[2022-08-15] MEDS: HYDROGEN PEROXIDE 3% 118 ML BOTTLE TP SCH ×2 (07:36→19:20)
[2022-08-15] MEDS: levETIRAcetam 500 MG/5 ML LIQUID UDC GT SCH ×2 (09:15→20:54)
[2022-08-15] MEDS: ACIDOPHILUS/BULGARICUS CHEW TAB GT SCH ×2 (09:15→20:54)
[2022-08-15] MEDS: METOPROLOL TARTRATE 50 MG TABLET GT SCH ×2 (09:16→20:55)
[2022-08-15] MEDS: TRIAMCINOLONE ACET 0.1% CREAM 15 GM TUBE TP SCH ×2 (09:24→20:59)
[2022-08-15] MEDS: ASCORBIC ACID 500 MG TABLET GT SCH (09:24)
[2022-08-15] MEDS: CLOPIDOGREL 75 MG TABLET GT SCH (09:24)
[2022-08-15] MEDS: REMEDY ESSENTIAL ZINC PASTE 113 GM TP SCH ×4 (09:24→20:59)
[2022-08-15] MEDS: ENOXAPARIN SODIUM 40 MG/0.4 ML DISP.SYRIN SQ SCH (21:00)
[2022-08-16] VITALS (10 sets, daily range): TEMP 98.2–98.7; O2SAT 97–99
[2022-08-16] MEDS: IPRATROPIUM BROMIDE 0.5 MG/2.5 ML NEBU NEB SCH ×5 (01:10→19:30)
[2022-08-16] MEDS: ALBUTEROL SULFATE 2.5 MG/3 ML NEBU NEB SCH ×5 (01:10→19:30)
[2022-08-16] MEDS: PANTOPRAZOLE ORAL SUSPENSION 40 MG SUSPDR.PKT GT SCH (05:19)
[2022-08-16] MEDS: METOPROLOL TARTRATE 50 MG TABLET GT SCH ×2 (10:19→23:10)
[2022-08-16] MEDS: CLOPIDOGREL 75 MG TABLET GT SCH (10:19)
[2022-08-16] MEDS: ACIDOPHILUS/BULGARICUS CHEW TAB GT SCH ×2 (10:20→23:10)
[2022-08-16] MEDS: levETIRAcetam 500 MG/5 ML LIQUID UDC GT SCH ×2 (10:20→23:10)
[2022-08-16] MEDS: REMEDY ESSENTIAL ZINC PASTE 113 GM TP SCH ×4 (10:25→23:09)
[2022-08-16] MEDS: TRIAMCINOLONE ACET 0.1% CREAM 15 GM TUBE TP SCH ×2 (10:25→23:09)
[2022-08-16] MEDS: HYDROGEN PEROXIDE 3% 118 ML BOTTLE TP SCH ×2 (10:26→21:08)
[2022-08-16] MEDS: ASCORBIC ACID 500 MG TABLET GT SCH (10:27)
[2022-08-16] MEDS: JEVITY 1.2 1000 ML LIQUID GT PRN ×2 (17:31)
[2022-08-16] MEDS: ENOXAPARIN SODIUM 40 MG/0.4 ML DISP.SYRIN SQ SCH (23:06)
[2022-08-17] VITALS (9 sets, daily range): TEMP 98.4; O2SAT 97–99
[2022-08-17] MEDS: ALBUTEROL SULFATE 2.5 MG/3 ML NEBU NEB SCH ×4 (01:24→19:30)
[2022-08-17] MEDS: IPRATROPIUM BROMIDE 0.5 MG/2.5 ML NEBU NEB SCH ×4 (01:24→19:30)
[2022-08-17] MEDS: PANTOPRAZOLE ORAL SUSPENSION 40 MG SUSPDR.PKT GT SCH (06:17)
[2022-08-17] MEDS: HYDROGEN PEROXIDE 3% 118 ML BOTTLE TP SCH ×2 (09:19→19:30)
[2022-08-17] MEDS: ACIDOPHILUS/BULGARICUS CHEW TAB GT SCH ×2 (09:52→21:00)
[2022-08-17] MEDS: REMEDY ESSENTIAL ZINC PASTE 113 GM TP SCH ×4 (09:53→21:00)
[2022-08-17] MEDS: TRIAMCINOLONE ACET 0.1% CREAM 15 GM TUBE TP SCH ×2 (09:53→21:00)
[2022-08-17] MEDS: METOPROLOL TARTRATE 50 MG TABLET GT SCH (09:58)
[2022-08-17] MEDS: ASCORBIC ACID 500 MG TABLET GT SCH (09:58)
[2022-08-17] MEDS: CLOPIDOGREL 75 MG TABLET GT SCH (09:58)
[2022-08-17] MEDS: levETIRAcetam 500 MG/5 ML LIQUID UDC GT SCH ×2 (09:58→21:00)
[2022-08-17] MEDS: JEVITY 1.2 1000 ML LIQUID GT PRN (10:09)
[2022-08-17] MEDS: ENOXAPARIN SODIUM 40 MG/0.4 ML DISP.SYRIN SQ SCH (21:00)
[2022-08-18] VITALS (10 sets, daily range): TEMP 97.8–98; O2SAT 97–99
[2022-08-18] MEDS: IPRATROPIUM BROMIDE 0.5 MG/2.5 ML NEBU NEB SCH ×4 (01:12→19:09)
[2022-08-18] MEDS: ALBUTEROL SULFATE 2.5 MG/3 ML NEBU NEB SCH ×4 (01:12→19:09)
[2022-08-18] MEDS: PANTOPRAZOLE ORAL SUSPENSION 40 MG SUSPDR.PKT GT SCH (06:13)
[2022-08-18] MEDS: HYDROGEN PEROXIDE 3% 118 ML BOTTLE TP SCH ×2 (07:42→21:00)
[2022-08-18] MEDS: ACIDOPHILUS/BULGARICUS CHEW TAB GT SCH ×2 (09:00→20:41)
[2022-08-18] MEDS: REMEDY ESSENTIAL ZINC PASTE 113 GM TP SCH ×4 (09:00→20:45)
[2022-08-18] MEDS: ASCORBIC ACID 500 MG TABLET GT SCH (09:00)
[2022-08-18] MEDS: CLOPIDOGREL 75 MG TABLET GT SCH (09:00)
[2022-08-18] MEDS: TRIAMCINOLONE ACET 0.1% CREAM 15 GM TUBE TP SCH (09:00)
[2022-08-18] MEDS: levETIRAcetam 500 MG/5 ML LIQUID UDC GT SCH ×2 (09:00→20:42)
[2022-08-18] MEDS: ENOXAPARIN SODIUM 40 MG/0.4 ML DISP.SYRIN SQ SCH (21:00)
[2022-08-19] VITALS (10 sets, daily range): TEMP 98.3–98.4; O2SAT 96–99
[2022-08-19] MEDS: IPRATROPIUM BROMIDE 0.5 MG/2.5 ML NEBU NEB SCH ×4 (01:10→19:25)
[2022-08-19] MEDS: ALBUTEROL SULFATE 2.5 MG/3 ML NEBU NEB SCH ×4 (01:10→19:25)
[2022-08-19] MEDS: JEVITY 1.2 1000 ML LIQUID GT PRN (03:11)
[2022-08-19] MEDS: PANTOPRAZOLE ORAL SUSPENSION 40 MG SUSPDR.PKT GT SCH (06:17)
[2022-08-19] MEDS: ACIDOPHILUS/BULGARICUS CHEW TAB GT SCH ×2 (09:05→21:16)
[2022-08-19] MEDS: levETIRAcetam 500 MG/5 ML LIQUID UDC GT SCH ×2 (09:05→21:17)
[2022-08-19] MEDS: CLOPIDOGREL 75 MG TABLET GT SCH (09:06)
[2022-08-19] MEDS: ASCORBIC ACID 500 MG TABLET GT SCH (09:06)
[2022-08-19] MEDS: REMEDY ESSENTIAL ZINC PASTE 113 GM TP SCH ×4 (09:07→21:19)
[2022-08-19] MEDS: HYDROGEN PEROXIDE 3% 118 ML BOTTLE TP SCH ×2 (09:12→21:50)
[2022-08-19] MEDS: ENOXAPARIN SODIUM 40 MG/0.4 ML DISP.SYRIN SQ SCH (21:18)
[2022-08-20] VITALS (10 sets, daily range): TEMP 97.6; O2SAT 97–99
[2022-08-20] MEDS: IPRATROPIUM BROMIDE 0.5 MG/2.5 ML NEBU NEB SCH ×4 (01:30→19:35)
[2022-08-20] MEDS: ALBUTEROL SULFATE 2.5 MG/3 ML NEBU NEB SCH ×4 (01:30→19:35)
[2022-08-20] MEDS: PANTOPRAZOLE ORAL SUSPENSION 40 MG SUSPDR.PKT GT SCH (05:30)
[2022-08-20] MEDS: HYDROGEN PEROXIDE 3% 118 ML BOTTLE TP SCH ×2 (09:20→20:59)
[2022-08-20] MEDS: ACIDOPHILUS/BULGARICUS CHEW TAB GT SCH ×2 (09:33→20:29)
[2022-08-20] MEDS: levETIRAcetam 500 MG/5 ML LIQUID UDC GT SCH ×2 (09:33→20:29)
[2022-08-20] MEDS: ASCORBIC ACID 500 MG TABLET GT SCH (09:34)
[2022-08-20] MEDS: CLOPIDOGREL 75 MG TABLET GT SCH (09:34)
[2022-08-20] MEDS: REMEDY ESSENTIAL ZINC PASTE 113 GM TP SCH ×4 (09:34→20:32)
[2022-08-20] MEDS: ENOXAPARIN SODIUM 40 MG/0.4 ML DISP.SYRIN SQ SCH (21:59)
[2022-08-21] VITALS (8 sets, daily range): TEMP 98–98.3; O2SAT 98–99
[2022-08-21] MEDS: ALBUTEROL SULFATE 2.5 MG/3 ML NEBU NEB SCH ×4 (01:10→19:22)
[2022-08-21] MEDS: IPRATROPIUM BROMIDE 0.5 MG/2.5 ML NEBU NEB SCH ×4 (01:10→19:22)
[2022-08-21] MEDS: JEVITY 1.2 1000 ML LIQUID GT PRN (04:00)
[2022-08-21] MEDS: PANTOPRAZOLE ORAL SUSPENSION 40 MG SUSPDR.PKT GT SCH (05:42)
[2022-08-21] MEDS: HYDROGEN PEROXIDE 3% 118 ML BOTTLE TP SCH ×2 (08:14→21:32)
[2022-08-21] MEDS: ACIDOPHILUS/BULGARICUS CHEW TAB GT SCH ×2 (08:57→21:00)
[2022-08-21] MEDS: ASCORBIC ACID 500 MG TABLET GT SCH (08:58)
[2022-08-21] MEDS: levETIRAcetam 500 MG/5 ML LIQUID UDC GT SCH ×2 (08:58→21:00)
[2022-08-21] MEDS: CLOPIDOGREL 75 MG TABLET GT SCH (08:58)
[2022-08-21] MEDS: REMEDY ESSENTIAL ZINC PASTE 113 GM TP SCH ×4 (09:05→21:00)
[2022-08-21] MEDS: ACETAMINOPHEN 650 MG/20 ML UDC- SA PATIENTS-PAIN ONLY GT PRN (09:06)
[2022-08-21] MEDS: ENOXAPARIN SODIUM 40 MG/0.4 ML DISP.SYRIN SQ SCH (21:00)
[2022-08-22] VITALS (10 sets, daily range): TEMP 97.7–98.1; O2SAT 98–99
[2022-08-22] MEDS: IPRATROPIUM BROMIDE 0.5 MG/2.5 ML NEBU NEB SCH ×4 (01:53→19:30)
[2022-08-22] MEDS: ALBUTEROL SULFATE 2.5 MG/3 ML NEBU NEB SCH ×4 (01:54→19:30)
[2022-08-22] MEDS: PANTOPRAZOLE ORAL SUSPENSION 40 MG SUSPDR.PKT GT SCH (06:11)
[2022-08-22] MEDS: HYDROGEN PEROXIDE 3% 118 ML BOTTLE TP SCH ×2 (07:55→21:05)
[2022-08-22] MEDS: ACIDOPHILUS/BULGARICUS CHEW TAB GT SCH ×2 (09:13→21:50)
[2022-08-22] MEDS: ASCORBIC ACID 500 MG TABLET GT SCH (09:14)
[2022-08-22] MEDS: CLOPIDOGREL 75 MG TABLET GT SCH (09:14)
[2022-08-22] MEDS: levETIRAcetam 500 MG/5 ML LIQUID UDC GT SCH ×2 (09:14→21:50)
[2022-08-22] MEDS: REMEDY ESSENTIAL ZINC PASTE 113 GM TP SCH ×4 (09:14→21:51)
[2022-08-22] MEDS: ENOXAPARIN SODIUM 40 MG/0.4 ML DISP.SYRIN SQ SCH (21:00)
[2022-08-23] VITALS (9 sets, daily range): BP systolic 97; BP diastolic 55; TEMP 97.9–98.9; O2SAT 95–99
[2022-08-23] MEDS: ALBUTEROL SULFATE 2.5 MG/3 ML NEBU NEB SCH ×4 (01:10→19:30)
[2022-08-23] MEDS: IPRATROPIUM BROMIDE 0.5 MG/2.5 ML NEBU NEB SCH ×4 (01:10→19:30)
[2022-08-23] MEDS: PANTOPRAZOLE ORAL SUSPENSION 40 MG SUSPDR.PKT GT SCH (05:32)
[2022-08-23] MEDS: HYDROGEN PEROXIDE 3% 118 ML BOTTLE TP SCH ×2 (08:19→21:12)
[2022-08-23] MEDS: ACIDOPHILUS/BULGARICUS CHEW TAB GT SCH ×2 (09:56→21:00)
[2022-08-23] MEDS: ASCORBIC ACID 500 MG TABLET GT SCH (09:57)
[2022-08-23] MEDS: REMEDY ESSENTIAL ZINC PASTE 113 GM TP SCH ×4 (09:57→21:00)
[2022-08-23] MEDS: levETIRAcetam 500 MG/5 ML LIQUID UDC GT SCH ×2 (09:57→21:00)
[2022-08-23] MEDS: CLOPIDOGREL 75 MG TABLET GT SCH (09:57)
[2022-08-23] MEDS: ACETAMINOPHEN 650 MG/20 ML UDC- SA PATIENTS-PAIN ONLY GT PRN (17:12)
[2022-08-23] MEDS: ENOXAPARIN SODIUM 40 MG/0.4 ML DISP.SYRIN SQ SCH (21:00)
[2022-08-24] VITALS (10 sets, daily range): BP systolic 120; BP diastolic 69; TEMP 98.2–98.4; O2SAT 95–99
[2022-08-24] MEDS: ALBUTEROL SULFATE 2.5 MG/3 ML NEBU NEB SCH ×4 (01:14→19:01)
[2022-08-24] MEDS: IPRATROPIUM BROMIDE 0.5 MG/2.5 ML NEBU NEB SCH ×4 (01:14→19:01)
[2022-08-24] MEDS: PANTOPRAZOLE ORAL SUSPENSION 40 MG SUSPDR.PKT GT SCH (06:00)
[2022-08-24] MEDS: ACIDOPHILUS/BULGARICUS CHEW TAB GT SCH ×2 (09:27→21:20)
[2022-08-24] MEDS: levETIRAcetam 500 MG/5 ML LIQUID UDC GT SCH ×2 (09:28→21:20)
[2022-08-24] MEDS: REMEDY ESSENTIAL ZINC PASTE 113 GM TP SCH ×4 (09:29→21:21)
[2022-08-24] MEDS: ASCORBIC ACID 500 MG TABLET GT SCH (09:29)
[2022-08-24] MEDS: CLOPIDOGREL 75 MG TABLET GT SCH (09:29)
[2022-08-24] MEDS: HYDROGEN PEROXIDE 3% 118 ML BOTTLE TP SCH ×2 (09:43→21:41)
[2022-08-24] MEDS: ENOXAPARIN SODIUM 40 MG/0.4 ML DISP.SYRIN SQ SCH (21:00)
[2022-08-24] MEDS: JEVITY 1.2 1000 ML LIQUID GT PRN (22:26)
[2022-08-25] VITALS (10 sets, daily range): TEMP 98.1–98.2; O2SAT 96–99
[2022-08-25] MEDS: IPRATROPIUM BROMIDE 0.5 MG/2.5 ML NEBU NEB SCH ×4 (01:32→19:21)
[2022-08-25] MEDS: ALBUTEROL SULFATE 2.5 MG/3 ML NEBU NEB SCH ×4 (01:32→19:21)
[2022-08-25] MEDS: PANTOPRAZOLE ORAL SUSPENSION 40 MG SUSPDR.PKT GT SCH (05:34)
[2022-08-25] MEDS: HYDROGEN PEROXIDE 3% 118 ML BOTTLE TP SCH ×2 (08:53→19:21)
[2022-08-25] MEDS: REMEDY ESSENTIAL ZINC PASTE 113 GM TP SCH ×4 (09:44→20:56)
[2022-08-25] MEDS: CLOPIDOGREL 75 MG TABLET GT SCH (09:44)
[2022-08-25] MEDS: levETIRAcetam 500 MG/5 ML LIQUID UDC GT SCH ×2 (09:44→20:55)
[2022-08-25] MEDS: ACIDOPHILUS/BULGARICUS CHEW TAB GT SCH ×2 (09:44→20:55)
[2022-08-25] MEDS: ASCORBIC ACID 500 MG TABLET GT SCH (09:44)
[2022-08-25] MEDS: ENOXAPARIN SODIUM 40 MG/0.4 ML DISP.SYRIN SQ SCH (20:55)
[2022-08-25] MEDS: JEVITY 1.2 1000 ML LIQUID GT PRN (21:06)
[2022-08-26] VITALS (10 sets, daily range): TEMP 98.2–98.4; O2SAT 98–99
[2022-08-26] MEDS: IPRATROPIUM BROMIDE 0.5 MG/2.5 ML NEBU NEB SCH ×4 (01:06→19:35)
[2022-08-26] MEDS: ALBUTEROL SULFATE 2.5 MG/3 ML NEBU NEB SCH ×4 (01:06→19:35)
[2022-08-26] MEDS: PANTOPRAZOLE ORAL SUSPENSION 40 MG SUSPDR.PKT GT SCH (05:34)
[2022-08-26] MEDS: HYDROGEN PEROXIDE 3% 118 ML BOTTLE TP SCH ×2 (08:20→21:23)
[2022-08-26] MEDS: levETIRAcetam 500 MG/5 ML LIQUID UDC GT SCH ×2 (09:09→20:22)
[2022-08-26] MEDS: ACIDOPHILUS/BULGARICUS CHEW TAB GT SCH ×2 (09:09→20:22)
[2022-08-26] MEDS: ASCORBIC ACID 500 MG TABLET GT SCH (09:11)
[2022-08-26] MEDS: CLOPIDOGREL 75 MG TABLET GT SCH (09:11)
[2022-08-26] MEDS: REMEDY ESSENTIAL ZINC PASTE 113 GM TP SCH ×4 (09:11→20:22)
[2022-08-26] MEDS: JEVITY 1.2 1000 ML LIQUID GT PRN (17:43)
[2022-08-26] MEDS: ENOXAPARIN SODIUM 40 MG/0.4 ML DISP.SYRIN SQ SCH (21:23)
[2022-08-27] VITALS (10 sets, daily range): TEMP 97.7; O2SAT 98–99
[2022-08-27] MEDS: IPRATROPIUM BROMIDE 0.5 MG/2.5 ML NEBU NEB SCH ×4 (01:27→19:13)
[2022-08-27] MEDS: ALBUTEROL SULFATE 2.5 MG/3 ML NEBU NEB SCH ×4 (01:27→19:13)
[2022-08-27] MEDS: PANTOPRAZOLE ORAL SUSPENSION 40 MG SUSPDR.PKT GT SCH (06:00)
[2022-08-27] MEDS: HYDROGEN PEROXIDE 3% 118 ML BOTTLE TP SCH ×2 (07:24→19:13)
[2022-08-27] MEDS: ASCORBIC ACID 500 MG TABLET GT SCH (08:51)
[2022-08-27] MEDS: REMEDY ESSENTIAL ZINC PASTE 113 GM TP SCH ×4 (08:51→20:05)
[2022-08-27] MEDS: levETIRAcetam 500 MG/5 ML LIQUID UDC GT SCH ×2 (08:51→20:05)
[2022-08-27] MEDS: ACIDOPHILUS/BULGARICUS CHEW TAB GT SCH ×2 (08:51→20:05)
[2022-08-27] MEDS: CLOPIDOGREL 75 MG TABLET GT SCH (08:51)
[2022-08-27] MEDS: JEVITY 1.2 1000 ML LIQUID GT PRN (19:57)
[2022-08-27] MEDS: ENOXAPARIN SODIUM 40 MG/0.4 ML DISP.SYRIN SQ SCH (20:47)
[2022-08-28] VITALS (9 sets, daily range): TEMP 97.8; O2SAT 98–99
[2022-08-28] MEDS: IPRATROPIUM BROMIDE 0.5 MG/2.5 ML NEBU NEB SCH ×4 (01:07→19:23)
[2022-08-28] MEDS: ALBUTEROL SULFATE 2.5 MG/3 ML NEBU NEB SCH ×4 (01:07→19:23)
[2022-08-28] MEDS: PANTOPRAZOLE ORAL SUSPENSION 40 MG SUSPDR.PKT GT SCH (05:17)
[2022-08-28] MEDS: HYDROGEN PEROXIDE 3% 118 ML BOTTLE TP SCH ×2 (07:24→19:23)
[2022-08-28] MEDS: CLOPIDOGREL 75 MG TABLET GT SCH (09:02)
[2022-08-28] MEDS: ASCORBIC ACID 500 MG TABLET GT SCH (09:02)
[2022-08-28] MEDS: levETIRAcetam 500 MG/5 ML LIQUID UDC GT SCH ×2 (09:02→21:33)
[2022-08-28] MEDS: REMEDY ESSENTIAL ZINC PASTE 113 GM TP SCH ×4 (09:02→21:00)
[2022-08-28] MEDS: ACIDOPHILUS/BULGARICUS CHEW TAB GT SCH ×2 (09:02→21:33)
[2022-08-28] MEDS: ENOXAPARIN SODIUM 40 MG/0.4 ML DISP.SYRIN SQ SCH (22:11)
[2022-08-29] VITALS (10 sets, daily range): TEMP 97.7–97.9; O2SAT 97–99
[2022-08-29] MEDS: ALBUTEROL SULFATE 2.5 MG/3 ML NEBU NEB SCH ×4 (00:50→19:30)
[2022-08-29] MEDS: IPRATROPIUM BROMIDE 0.5 MG/2.5 ML NEBU NEB SCH ×4 (00:50→19:30)
[2022-08-29] MEDS: JEVITY 1.2 1000 ML LIQUID GT PRN (01:05)
[2022-08-29] MEDS: PANTOPRAZOLE ORAL SUSPENSION 40 MG SUSPDR.PKT GT SCH (05:00)
[2022-08-29] MEDS: levETIRAcetam 500 MG/5 ML LIQUID UDC GT SCH ×2 (08:52→21:06)
[2022-08-29] MEDS: ACIDOPHILUS/BULGARICUS CHEW TAB GT SCH ×2 (08:52→21:05)
[2022-08-29] MEDS: CLOPIDOGREL 75 MG TABLET GT SCH (08:53)
[2022-08-29] MEDS: ASCORBIC ACID 500 MG TABLET GT SCH (08:53)
[2022-08-29] MEDS: REMEDY ESSENTIAL ZINC PASTE 113 GM TP SCH ×4 (08:53→21:07)
[2022-08-29] MEDS: HYDROGEN PEROXIDE 3% 118 ML BOTTLE TP SCH ×2 (09:00→21:00)
[2022-08-29] MEDS: ENOXAPARIN SODIUM 40 MG/0.4 ML DISP.SYRIN SQ SCH (21:00)
[2022-08-30] VITALS (10 sets, daily range): TEMP 97.9–98.8; O2SAT 97–99
[2022-08-30] MEDS: IPRATROPIUM BROMIDE 0.5 MG/2.5 ML NEBU NEB SCH ×4 (01:29→19:41)
[2022-08-30] MEDS: ALBUTEROL SULFATE 2.5 MG/3 ML NEBU NEB SCH ×4 (01:29→19:41)
[2022-08-30] MEDS: PANTOPRAZOLE ORAL SUSPENSION 40 MG SUSPDR.PKT GT SCH (06:14)
[2022-08-30] MEDS: JEVITY 1.2 1000 ML LIQUID GT PRN (06:16)
[2022-08-30] MEDS: levETIRAcetam 500 MG/5 ML LIQUID UDC GT SCH ×2 (08:34→21:00)
[2022-08-30] MEDS: ACIDOPHILUS/BULGARICUS CHEW TAB GT SCH ×2 (08:34→21:00)
[2022-08-30] MEDS: ASCORBIC ACID 500 MG TABLET GT SCH (08:35)
[2022-08-30] MEDS: CLOPIDOGREL 75 MG TABLET GT SCH (08:35)
[2022-08-30] MEDS: REMEDY ESSENTIAL ZINC PASTE 113 GM TP SCH ×4 (08:35→21:00)
[2022-08-30] MEDS: HYDROGEN PEROXIDE 3% 118 ML BOTTLE TP SCH ×2 (08:38→21:00)
[2022-08-30] MEDS: ENOXAPARIN SODIUM 40 MG/0.4 ML DISP.SYRIN SQ SCH (21:00)
[2022-08-31] VITALS (10 sets, daily range): TEMP 98.4–98.9; O2SAT 97–99
[2022-08-31] MEDS: IPRATROPIUM BROMIDE 0.5 MG/2.5 ML NEBU NEB SCH ×5 (01:15→20:11)
[2022-08-31] MEDS: ALBUTEROL SULFATE 2.5 MG/3 ML NEBU NEB SCH ×5 (01:15→20:11)
[2022-08-31] MEDS: PANTOPRAZOLE ORAL SUSPENSION 40 MG SUSPDR.PKT GT SCH (05:41)
[2022-08-31] MEDS: HYDROGEN PEROXIDE 3% 118 ML BOTTLE TP SCH ×2 (07:56→19:11)
[2022-08-31] MEDS: ACIDOPHILUS/BULGARICUS CHEW TAB GT SCH ×2 (08:21→21:00)
[2022-08-31] MEDS: levETIRAcetam 500 MG/5 ML LIQUID UDC GT SCH ×2 (08:21→21:00)
[2022-08-31] MEDS: CLOPIDOGREL 75 MG TABLET GT SCH (08:23)
[2022-08-31] MEDS: ASCORBIC ACID 500 MG TABLET GT SCH (08:23)
[2022-08-31] MEDS: REMEDY ESSENTIAL ZINC PASTE 113 GM TP SCH ×4 (08:24→21:00)
[2022-08-31] MEDS: ENOXAPARIN SODIUM 40 MG/0.4 ML DISP.SYRIN SQ SCH (21:00)
[2022-09-01] VITALS (10 sets, daily range): TEMP 98.2–98.5; O2SAT 97–99
[2022-09-01] MEDS: IPRATROPIUM BROMIDE 0.5 MG/2.5 ML NEBU NEB SCH ×4 (00:58→19:10)
[2022-09-01] MEDS: ALBUTEROL SULFATE 2.5 MG/3 ML NEBU NEB SCH ×4 (00:58→19:10)
[2022-09-01] MEDS: PANTOPRAZOLE ORAL SUSPENSION 40 MG SUSPDR.PKT GT SCH (06:53)
[2022-09-01] MEDS: HYDROGEN PEROXIDE 3% 118 ML BOTTLE TP SCH ×2 (07:48→21:03)
[2022-09-01] MEDS: levETIRAcetam 500 MG/5 ML LIQUID UDC GT SCH ×2 (08:35→20:26)
[2022-09-01] MEDS: ACIDOPHILUS/BULGARICUS CHEW TAB GT SCH ×2 (08:35→20:26)
[2022-09-01] MEDS: CLOPIDOGREL 75 MG TABLET GT SCH (08:36)
[2022-09-01] MEDS: ASCORBIC ACID 500 MG TABLET GT SCH (08:36)
[2022-09-01] MEDS: ACETAMINOPHEN 650 MG/20 ML UDC- SA PATIENTS-PAIN ONLY GT PRN (08:38)
[2022-09-01] MEDS: REMEDY ESSENTIAL ZINC PASTE 113 GM TP SCH ×4 (08:44→20:28)
[2022-09-01] MEDS: ENOXAPARIN SODIUM 40 MG/0.4 ML DISP.SYRIN SQ SCH (21:52)
[2022-09-02] VITALS (10 sets, daily range): TEMP 97.6–98; O2SAT 97–99
[2022-09-02] MEDS: ALBUTEROL SULFATE 2.5 MG/3 ML NEBU NEB SCH ×4 (02:19→18:40)
[2022-09-02] MEDS: IPRATROPIUM BROMIDE 0.5 MG/2.5 ML NEBU NEB SCH ×4 (02:19→18:40)
[2022-09-02] MEDS: PANTOPRAZOLE ORAL SUSPENSION 40 MG SUSPDR.PKT GT SCH (05:08)
[2022-09-02] MEDS: JEVITY 1.2 1000 ML LIQUID GT PRN (05:08)
[2022-09-02] MEDS: HYDROGEN PEROXIDE 3% 118 ML BOTTLE TP SCH ×2 (08:16→21:00)
[2022-09-02] MEDS: levETIRAcetam 500 MG/5 ML LIQUID UDC GT SCH ×2 (08:55→21:00)
[2022-09-02] MEDS: ACIDOPHILUS/BULGARICUS CHEW TAB GT SCH ×2 (08:55→21:00)
[2022-09-02] MEDS: CLOPIDOGREL 75 MG TABLET GT SCH (08:56)
[2022-09-02] MEDS: ASCORBIC ACID 500 MG TABLET GT SCH (08:56)
[2022-09-02] MEDS: REMEDY ESSENTIAL ZINC PASTE 113 GM TP SCH ×4 (08:57→21:00)
[2022-09-02] MEDS: ENOXAPARIN SODIUM 40 MG/0.4 ML DISP.SYRIN SQ SCH (21:00)
[2022-09-03] VITALS (10 sets, daily range): TEMP 98.3–98.8; O2SAT 97–99
[2022-09-03] MEDS: IPRATROPIUM BROMIDE 0.5 MG/2.5 ML NEBU NEB SCH ×4 (01:22→19:24)
[2022-09-03] MEDS: ALBUTEROL SULFATE 2.5 MG/3 ML NEBU NEB SCH ×4 (01:22→19:24)
[2022-09-03] MEDS: PANTOPRAZOLE ORAL SUSPENSION 40 MG SUSPDR.PKT GT SCH (06:00)
[2022-09-03] MEDS: HYDROGEN PEROXIDE 3% 118 ML BOTTLE TP SCH ×2 (08:49→19:24)
[2022-09-03] MEDS: ACIDOPHILUS/BULGARICUS CHEW TAB GT SCH ×2 (09:29→20:29)
[2022-09-03] MEDS: CLOPIDOGREL 75 MG TABLET GT SCH (09:30)
[2022-09-03] MEDS: levETIRAcetam 500 MG/5 ML LIQUID UDC GT SCH ×2 (09:30→20:29)
[2022-09-03] MEDS: ASCORBIC ACID 500 MG TABLET GT SCH (09:31)
[2022-09-03] MEDS: REMEDY ESSENTIAL ZINC PASTE 113 GM TP SCH ×4 (09:31→20:29)
[2022-09-03] MEDS: JEVITY 1.2 1000 ML LIQUID GT PRN (20:29)
[2022-09-03] MEDS: ENOXAPARIN SODIUM 40 MG/0.4 ML DISP.SYRIN SQ SCH (20:38)
[2022-09-04] VITALS (12 sets, daily range): TEMP 97.8–99; O2SAT 98–99
[2022-09-04] MEDS: IPRATROPIUM BROMIDE 0.5 MG/2.5 ML NEBU NEB SCH ×4 (01:39→22:14)
[2022-09-04] MEDS: ALBUTEROL SULFATE 2.5 MG/3 ML NEBU NEB SCH ×4 (01:39→22:15)
[2022-09-04] MEDS: PANTOPRAZOLE ORAL SUSPENSION 40 MG SUSPDR.PKT GT SCH (05:56)
[2022-09-04] MEDS: HYDROGEN PEROXIDE 3% 118 ML BOTTLE TP SCH ×2 (09:00→22:15)
[2022-09-04] MEDS: ACIDOPHILUS/BULGARICUS CHEW TAB GT SCH ×2 (09:18→21:00)
[2022-09-04] MEDS: ASCORBIC ACID 500 MG TABLET GT SCH (09:18)
[2022-09-04] MEDS: levETIRAcetam 500 MG/5 ML LIQUID UDC GT SCH ×2 (09:18→21:00)
[2022-09-04] MEDS: CLOPIDOGREL 75 MG TABLET GT SCH (09:18)
[2022-09-04] MEDS: REMEDY ESSENTIAL ZINC PASTE 113 GM TP SCH ×4 (09:19→21:00)
[2022-09-04] MEDS: JEVITY 1.2 1000 ML LIQUID GT PRN (14:34)
[2022-09-04] MEDS: ENOXAPARIN SODIUM 40 MG/0.4 ML DISP.SYRIN SQ SCH (21:00)
[2022-09-05] VITALS (12 sets, daily range): TEMP 98.5–98.7; O2SAT 98–99
[2022-09-05] MEDS: ALBUTEROL SULFATE 2.5 MG/3 ML NEBU NEB SCH ×4 (00:56→18:31)
[2022-09-05] MEDS: IPRATROPIUM BROMIDE 0.5 MG/2.5 ML NEBU NEB SCH ×4 (00:56→18:31)
[2022-09-05] MEDS: PANTOPRAZOLE ORAL SUSPENSION 40 MG SUSPDR.PKT GT SCH (06:33)
[2022-09-05] MEDS: HYDROGEN PEROXIDE 3% 118 ML BOTTLE TP SCH ×3 (08:52→18:31)
[2022-09-05] MEDS: ACIDOPHILUS/BULGARICUS CHEW TAB GT SCH ×2 (09:30→21:35)
[2022-09-05] MEDS: levETIRAcetam 500 MG/5 ML LIQUID UDC GT SCH ×2 (09:30→21:35)
[2022-09-05] MEDS: CLOPIDOGREL 75 MG TABLET GT SCH (09:34)
[2022-09-05] MEDS: ASCORBIC ACID 500 MG TABLET GT SCH (09:35)
[2022-09-05] MEDS: REMEDY ESSENTIAL ZINC PASTE 113 GM TP SCH ×4 (09:35→21:35)
[2022-09-05] MEDS: JEVITY 1.2 1000 ML LIQUID GT PRN (09:41)
[2022-09-05] MEDS: ENOXAPARIN SODIUM 40 MG/0.4 ML DISP.SYRIN SQ SCH (21:00)
[2022-09-06] VITALS (14 sets, daily range): BP systolic 102; BP diastolic 61; TEMP 97.8–100; O2SAT 98–99
[2022-09-06] MEDS: ALBUTEROL SULFATE 2.5 MG/3 ML NEBU NEB SCH ×4 (00:40→21:37)
[2022-09-06] MEDS: IPRATROPIUM BROMIDE 0.5 MG/2.5 ML NEBU NEB SCH ×4 (00:40→21:37)
[2022-09-06] MEDS: JEVITY 1.2 1000 ML LIQUID GT PRN ×2 (04:03→22:46)
[2022-09-06] MEDS: PANTOPRAZOLE ORAL SUSPENSION 40 MG SUSPDR.PKT GT SCH (05:37)
[2022-09-06] MEDS: levETIRAcetam 500 MG/5 ML LIQUID UDC GT SCH ×2 (08:47→20:42)
[2022-09-06] MEDS: CLOPIDOGREL 75 MG TABLET GT SCH (08:47)
[2022-09-06] MEDS: ACIDOPHILUS/BULGARICUS CHEW TAB GT SCH ×2 (08:47→20:42)
[2022-09-06] MEDS: ASCORBIC ACID 500 MG TABLET GT SCH (08:48)
[2022-09-06] MEDS: REMEDY ESSENTIAL ZINC PASTE 113 GM TP SCH ×4 (08:48→20:43)
[2022-09-06] MEDS: ENOXAPARIN SODIUM 40 MG/0.4 ML DISP.SYRIN SQ SCH (20:42)
[2022-09-06] MEDS: ACETAMINOPHEN 650 MG/20 ML UDC- SA PATIENTS-PAIN ONLY GT PRN (20:43)
[2022-09-06] MEDS: HYDROGEN PEROXIDE 3% 118 ML BOTTLE TP SCH (21:38)
[2022-09-07] VITALS (11 sets, daily range): TEMP 98.6–98.7; O2SAT 97–99
[2022-09-07] MEDS: IPRATROPIUM BROMIDE 0.5 MG/2.5 ML NEBU NEB SCH ×4 (00:33→19:08)
[2022-09-07] MEDS: ALBUTEROL SULFATE 2.5 MG/3 ML NEBU NEB SCH ×4 (00:33→19:08)
[2022-09-07] MEDS: PANTOPRAZOLE ORAL SUSPENSION 40 MG SUSPDR.PKT GT SCH (05:23)
[2022-09-07] MEDS: levETIRAcetam 500 MG/5 ML LIQUID UDC GT SCH ×2 (08:09→21:32)
[2022-09-07] MEDS: ACIDOPHILUS/BULGARICUS CHEW TAB GT SCH ×2 (08:09→21:32)
[2022-09-07] MEDS: CLOPIDOGREL 75 MG TABLET GT SCH (08:10)
[2022-09-07] MEDS: ASCORBIC ACID 500 MG TABLET GT SCH (08:10)
[2022-09-07] MEDS: REMEDY ESSENTIAL ZINC PASTE 113 GM TP SCH ×4 (08:10→21:33)
[2022-09-07] MEDS: HYDROGEN PEROXIDE 3% 118 ML BOTTLE TP SCH ×2 (09:32→19:08)
[2022-09-07] MEDS: ENOXAPARIN SODIUM 40 MG/0.4 ML DISP.SYRIN SQ SCH (21:33)
[2022-09-08] VITALS (9 sets, daily range): TEMP 98.9; O2SAT 96–99
[2022-09-08] MEDS: ALBUTEROL SULFATE 2.5 MG/3 ML NEBU NEB SCH ×4 (00:44→20:19)
[2022-09-08] MEDS: IPRATROPIUM BROMIDE 0.5 MG/2.5 ML NEBU NEB SCH ×4 (00:44→20:19)
[2022-09-08] MEDS: JEVITY 1.2 1000 ML LIQUID GT PRN ×2 (02:00→20:20)
[2022-09-08] MEDS: PANTOPRAZOLE ORAL SUSPENSION 40 MG SUSPDR.PKT GT SCH (05:01)
[2022-09-08] MEDS: HYDROGEN PEROXIDE 3% 118 ML BOTTLE TP SCH ×2 (09:22→20:19)
[2022-09-08] MEDS: CLOPIDOGREL 75 MG TABLET GT SCH (09:33)
[2022-09-08] MEDS: ACIDOPHILUS/BULGARICUS CHEW TAB GT SCH ×2 (09:33→20:18)
[2022-09-08] MEDS: levETIRAcetam 500 MG/5 ML LIQUID UDC GT SCH ×2 (09:33→20:18)
[2022-09-08] MEDS: REMEDY ESSENTIAL ZINC PASTE 113 GM TP SCH ×4 (09:34→20:20)
[2022-09-08] MEDS: ASCORBIC ACID 500 MG TABLET GT SCH (09:34)
[2022-09-08] MEDS: ENOXAPARIN SODIUM 40 MG/0.4 ML DISP.SYRIN SQ SCH (21:00)
[2022-09-09] VITALS (11 sets, daily range): TEMP 97.2–98.8; O2SAT 97–100
[2022-09-09] MEDS: IPRATROPIUM BROMIDE 0.5 MG/2.5 ML NEBU NEB SCH ×4 (01:33→19:23)
[2022-09-09] MEDS: ALBUTEROL SULFATE 2.5 MG/3 ML NEBU NEB SCH ×4 (01:34→19:23)
[2022-09-09] MEDS: PANTOPRAZOLE ORAL SUSPENSION 40 MG SUSPDR.PKT GT SCH (05:39)
[2022-09-09] MEDS: HYDROGEN PEROXIDE 3% 118 ML BOTTLE TP SCH ×2 (08:28→22:01)
[2022-09-09] MEDS: ACIDOPHILUS/BULGARICUS CHEW TAB GT SCH ×2 (09:30→21:43)
[2022-09-09] MEDS: CLOPIDOGREL 75 MG TABLET GT SCH (09:30)
[2022-09-09] MEDS: levETIRAcetam 500 MG/5 ML LIQUID UDC GT SCH ×2 (09:30→21:43)
[2022-09-09] MEDS: ASCORBIC ACID 500 MG TABLET GT SCH (09:31)
[2022-09-09] MEDS: REMEDY ESSENTIAL ZINC PASTE 113 GM TP SCH ×4 (09:32→21:47)
[2022-09-09] MEDS: ENOXAPARIN SODIUM 40 MG/0.4 ML DISP.SYRIN SQ SCH (21:43)
[2022-09-10] VITALS (10 sets, daily range): TEMP 98.6; O2SAT 98–100
[2022-09-10] MEDS: IPRATROPIUM BROMIDE 0.5 MG/2.5 ML NEBU NEB SCH ×4 (00:34→19:27)
[2022-09-10] MEDS: ALBUTEROL SULFATE 2.5 MG/3 ML NEBU NEB SCH ×4 (00:34→19:28)
[2022-09-10] MEDS: PANTOPRAZOLE ORAL SUSPENSION 40 MG SUSPDR.PKT GT SCH (05:38)
[2022-09-10] MEDS: HYDROGEN PEROXIDE 3% 118 ML BOTTLE TP SCH ×2 (09:02→21:00)
[2022-09-10] MEDS: ACIDOPHILUS/BULGARICUS CHEW TAB GT SCH ×2 (09:07→21:00)
[2022-09-10] MEDS: REMEDY ESSENTIAL ZINC PASTE 113 GM TP SCH ×4 (09:08→21:00)
[2022-09-10] MEDS: ASCORBIC ACID 500 MG TABLET GT SCH (09:09)
[2022-09-10] MEDS: CLOPIDOGREL 75 MG TABLET GT SCH (09:09)
[2022-09-10] MEDS: levETIRAcetam 500 MG/5 ML LIQUID UDC GT SCH ×2 (09:09→21:00)
[2022-09-10] MEDS: ENOXAPARIN SODIUM 40 MG/0.4 ML DISP.SYRIN SQ SCH (23:04)
[2022-09-11] VITALS (10 sets, daily range): TEMP 97.4–98.4; O2SAT 98–100
[2022-09-11] MEDS: ALBUTEROL SULFATE 2.5 MG/3 ML NEBU NEB SCH ×4 (00:48→19:15)
[2022-09-11] MEDS: IPRATROPIUM BROMIDE 0.5 MG/2.5 ML NEBU NEB SCH ×4 (00:48→19:15)
[2022-09-11] MEDS: PANTOPRAZOLE ORAL SUSPENSION 40 MG SUSPDR.PKT GT SCH (06:00)
[2022-09-11] MEDS: HYDROGEN PEROXIDE 3% 118 ML BOTTLE TP SCH ×2 (09:20→21:10)
[2022-09-11] MEDS: CLOPIDOGREL 75 MG TABLET GT SCH (09:53)
[2022-09-11] MEDS: ASCORBIC ACID 500 MG TABLET GT SCH (09:53)
[2022-09-11] MEDS: levETIRAcetam 500 MG/5 ML LIQUID UDC GT SCH ×2 (09:53→21:00)
[2022-09-11] MEDS: REMEDY ESSENTIAL ZINC PASTE 113 GM TP SCH ×4 (09:53→21:00)
[2022-09-11] MEDS: ACIDOPHILUS/BULGARICUS CHEW TAB GT SCH ×2 (09:53→21:00)
[2022-09-11] MEDS: ENOXAPARIN SODIUM 40 MG/0.4 ML DISP.SYRIN SQ SCH (21:00)
[2022-09-11] MEDS: JEVITY 1.2 1000 ML LIQUID GT PRN (22:20)
[2022-09-12] VITALS (11 sets, daily range): TEMP 97.7–98.4; O2SAT 98–100
[2022-09-12] MEDS: IPRATROPIUM BROMIDE 0.5 MG/2.5 ML NEBU NEB SCH ×4 (01:47→19:21)
[2022-09-12] MEDS: ALBUTEROL SULFATE 2.5 MG/3 ML NEBU NEB SCH ×4 (01:49→19:21)
[2022-09-12] MEDS: PANTOPRAZOLE ORAL SUSPENSION 40 MG SUSPDR.PKT GT SCH (05:04)
[2022-09-12] MEDS: levETIRAcetam 500 MG/5 ML LIQUID UDC GT SCH ×2 (08:09→21:41)
[2022-09-12] MEDS: ACIDOPHILUS/BULGARICUS CHEW TAB GT SCH ×2 (08:09→21:42)
[2022-09-12] MEDS: CLOPIDOGREL 75 MG TABLET GT SCH (08:10)
[2022-09-12] MEDS: ASCORBIC ACID 500 MG TABLET GT SCH (08:10)
[2022-09-12] MEDS: REMEDY ESSENTIAL ZINC PASTE 113 GM TP SCH ×4 (08:10→21:39)
[2022-09-12] MEDS: HYDROGEN PEROXIDE 3% 118 ML BOTTLE TP SCH ×2 (08:58→19:21)
[2022-09-12] MEDS: JEVITY 1.2 1000 ML LIQUID GT PRN (15:55)
[2022-09-12] MEDS: ENOXAPARIN SODIUM 40 MG/0.4 ML DISP.SYRIN SQ SCH (21:39)
[2022-09-13] VITALS (12 sets, daily range): TEMP 98.1–100.5; O2SAT 97–100
[2022-09-13] MEDS: IPRATROPIUM BROMIDE 0.5 MG/2.5 ML NEBU NEB SCH ×4 (00:57→19:26)
[2022-09-13] MEDS: ALBUTEROL SULFATE 2.5 MG/3 ML NEBU NEB SCH ×4 (00:57→19:26)
[2022-09-13] MEDS: PANTOPRAZOLE ORAL SUSPENSION 40 MG SUSPDR.PKT GT SCH (05:26)
[2022-09-13] MEDS: ACIDOPHILUS/BULGARICUS CHEW TAB GT SCH ×2 (08:24→21:28)
[2022-09-13] MEDS: levETIRAcetam 500 MG/5 ML LIQUID UDC GT SCH ×2 (08:25→21:28)
[2022-09-13] MEDS: CLOPIDOGREL 75 MG TABLET GT SCH (08:25)
[2022-09-13] MEDS: ASCORBIC ACID 500 MG TABLET GT SCH (08:25)
[2022-09-13] MEDS: REMEDY ESSENTIAL ZINC PASTE 113 GM TP SCH ×4 (08:26→21:30)
[2022-09-13] MEDS: HYDROGEN PEROXIDE 3% 118 ML BOTTLE TP SCH ×2 (09:00→19:26)
[2022-09-13] MEDS: JEVITY 1.2 1000 ML LIQUID GT PRN (11:15)
[2022-09-13] MEDS: ENOXAPARIN SODIUM 40 MG/0.4 ML DISP.SYRIN SQ SCH (21:30)
[2022-09-14] VITALS (10 sets, daily range): TEMP 98.1–98.2; O2SAT 97–100
[2022-09-14] MEDS: ALBUTEROL SULFATE 2.5 MG/3 ML NEBU NEB SCH ×4 (01:14→19:09)
[2022-09-14] MEDS: IPRATROPIUM BROMIDE 0.5 MG/2.5 ML NEBU NEB SCH ×4 (01:14→19:09)
[2022-09-14] MEDS: JEVITY 1.2 1000 ML LIQUID GT PRN (03:58)
[2022-09-14] MEDS: PANTOPRAZOLE ORAL SUSPENSION 40 MG SUSPDR.PKT GT SCH (05:12)
[2022-09-14] MEDS: HYDROGEN PEROXIDE 3% 118 ML BOTTLE TP SCH ×2 (08:59→19:09)
[2022-09-14] MEDS: ASCORBIC ACID 500 MG TABLET GT SCH (09:40)
[2022-09-14] MEDS: levETIRAcetam 500 MG/5 ML LIQUID UDC GT SCH ×2 (09:40→20:59)
[2022-09-14] MEDS: CLOPIDOGREL 75 MG TABLET GT SCH (09:40)
[2022-09-14] MEDS: ACIDOPHILUS/BULGARICUS CHEW TAB GT SCH ×2 (09:40→20:59)
[2022-09-14] MEDS: METOPROLOL TARTRATE 75 MG GT SCH ×2 (09:40→21:00)
[2022-09-14] MEDS: REMEDY ESSENTIAL ZINC PASTE 113 GM TP SCH ×4 (09:41→21:02)
[2022-09-14] MEDS: ENOXAPARIN SODIUM 40 MG/0.4 ML DISP.SYRIN SQ SCH (21:02)
[2022-09-15] VITALS (11 sets, daily range): TEMP 97.6–98.2; O2SAT 96–99
[2022-09-15] MEDS: JEVITY 1.2 1000 ML LIQUID GT PRN (01:06)
[2022-09-15] MEDS: IPRATROPIUM BROMIDE 0.5 MG/2.5 ML NEBU NEB SCH ×4 (01:16→19:13)
[2022-09-15] MEDS: ALBUTEROL SULFATE 2.5 MG/3 ML NEBU NEB SCH ×4 (01:16→19:13)
[2022-09-15] MEDS: PANTOPRAZOLE ORAL SUSPENSION 40 MG SUSPDR.PKT GT SCH (05:04)
[2022-09-15 07:12] LABS: ALANINE AMINOTRANSFERASE 26 U/L (16-63); ALBUMIN 2.7 g/dL (3.4-5.0); ALKALINE PHOSPHATASE 148 U/L (50-136); ASPARTATE AMINOTRANSFERASE 11 U/L (15-37); BILIRUBIN,TOTAL 0.3 mg/dL (0.2-1.0); CALCIUM 9.4 mg/dL (8.5-10.1); CARBON DIOXIDE 24 mmol/L (21-32); CHLORIDE 99 mmol/L (98-107); CREATININE 0.5 mg/dL (0.6-1.3); GLUCOSE 103 mg/dL (74-106); PHOSPHOROUS 4.4 mg/dL (2.5-4.9); POTASSIUM 3.9 mmol/L (3.5-5.1); SODIUM SERUM 136 mmol/L (136-145); TOTAL PROTEIN, SERUM 7.7 g/dL (6.4-8.2); UREA NITROGEN, BLOOD 12 mg/dL (7-18)
[2022-09-15 07:28] LABS: BASOPHILS % (AUTO) 0.3 % (0.0-2.0); EOSINOPHILS # (AUTO) 0.4 K/uL (0.0-0.7); EOSINOPHILS % (AUTO) 4.3 % (0.0-7.0); HEMATOCRIT 35.8 % (36.7-47.1); LYMPHOCYTES # (AUTO) 1.9 K/uL (0.8-4.8); LYMPHOCYTES % (AUTO) 20.6 % (20.5-51.5); MEAN CORPUSCULAR HEMOGLOBIN 29.4 uug (23.8-33.4); MEAN CORPUSCULAR HGB CONC 34 g/dL (32.5-36.3); MEAN CORPUSCULAR VOLUME 87.4 fL (73.0-96.2); MONOCYTES # (AUTO) 0.7 K/uL (0.1-1.30); MONOCYTES % (AUTO) 7.9 % (0.0-11.0); NEUTROPHILS # (AUTO) 6.2 K/uL (1.8-8.9); NEUTROPHILS % (AUTO) 66.9 % (38.5-71.5); PLATELET COUNT (AUTO) 535 K/uL (152-348); RED CELL DISTRIBUTION WIDTH 14.6 % (12.1-16.2); WHITE BLOOD COUNT (AUTO) 9.3 K/uL (3.6-10.2)
[2022-09-15 07:56] LABS: DIFFERENTIAL COMMENT 1
[2022-09-15] MEDS: ACIDOPHILUS/BULGARICUS CHEW TAB GT SCH ×2 (08:35→20:54)
[2022-09-15] MEDS: levETIRAcetam 500 MG/5 ML LIQUID UDC GT SCH ×2 (08:36→20:54)
[2022-09-15] MEDS: METOPROLOL TARTRATE 75 MG GT SCH ×2 (08:37→20:55)
[2022-09-15] MEDS: CLOPIDOGREL 75 MG TABLET GT SCH (08:39)
[2022-09-15] MEDS: ASCORBIC ACID 500 MG TABLET GT SCH (08:40)
[2022-09-15] MEDS: REMEDY ESSENTIAL ZINC PASTE 113 GM TP SCH ×4 (08:40→20:56)
[2022-09-15] MEDS: HYDROGEN PEROXIDE 3% 118 ML BOTTLE TP SCH ×2 (09:42→19:13)
[2022-09-15] MEDS: ENOXAPARIN SODIUM 40 MG/0.4 ML DISP.SYRIN SQ SCH (20:56)
[2022-09-16] VITALS (11 sets, daily range): TEMP 98.2–98.7; O2SAT 97–99
[2022-09-16] MEDS: ALBUTEROL SULFATE 2.5 MG/3 ML NEBU NEB SCH ×4 (01:22→19:24)
[2022-09-16] MEDS: IPRATROPIUM BROMIDE 0.5 MG/2.5 ML NEBU NEB SCH ×4 (01:22→19:24)
[2022-09-16] MEDS: JEVITY 1.2 1000 ML LIQUID GT PRN (04:07)
[2022-09-16] MEDS: PANTOPRAZOLE ORAL SUSPENSION 40 MG SUSPDR.PKT GT SCH (05:52)
[2022-09-16] MEDS: ACIDOPHILUS/BULGARICUS CHEW TAB GT SCH ×2 (09:36→20:41)
[2022-09-16] MEDS: levETIRAcetam 500 MG/5 ML LIQUID UDC GT SCH ×2 (09:36→20:41)
[2022-09-16] MEDS: HYDROGEN PEROXIDE 3% 118 ML BOTTLE TP SCH ×2 (09:38→19:24)
[2022-09-16] MEDS: METOPROLOL TARTRATE 75 MG GT SCH ×2 (09:38→20:43)
[2022-09-16] MEDS: REMEDY ESSENTIAL ZINC PASTE 113 GM TP SCH ×4 (09:38→20:44)
[2022-09-16] MEDS: CLOPIDOGREL 75 MG TABLET GT SCH (09:38)
[2022-09-16] MEDS: ASCORBIC ACID 500 MG TABLET GT SCH (09:38)
[2022-09-16] MEDS: ENOXAPARIN SODIUM 40 MG/0.4 ML DISP.SYRIN SQ SCH (20:43)
[2022-09-16] MEDS: NEOMY/BACITRA/POLYMYXIN B OINT UD PACKET TP SCH (20:44)
[2022-09-16] MEDS: TRIAMCINOLONE ACET 0.1% CREAM 15 GM TUBE TP SCH (20:44)
[2022-09-17] VITALS (10 sets, daily range): TEMP 97.8–98; O2SAT 97–99
[2022-09-17] MEDS: ALBUTEROL SULFATE 2.5 MG/3 ML NEBU NEB SCH ×4 (01:30→19:10)
[2022-09-17] MEDS: IPRATROPIUM BROMIDE 0.5 MG/2.5 ML NEBU NEB SCH ×4 (01:30→19:10)
[2022-09-17] MEDS: PANTOPRAZOLE ORAL SUSPENSION 40 MG SUSPDR.PKT GT SCH (05:19)
[2022-09-17] MEDS: HYDROGEN PEROXIDE 3% 118 ML BOTTLE TP SCH ×2 (09:00→19:10)
[2022-09-17] MEDS: ACIDOPHILUS/BULGARICUS CHEW TAB GT SCH ×2 (09:40→20:57)
[2022-09-17] MEDS: levETIRAcetam 500 MG/5 ML LIQUID UDC GT SCH ×2 (09:40→20:57)
[2022-09-17] MEDS: CLOPIDOGREL 75 MG TABLET GT SCH (09:41)
[2022-09-17] MEDS: TRIAMCINOLONE ACET 0.1% CREAM 15 GM TUBE TP SCH ×2 (09:41→20:59)
[2022-09-17] MEDS: REMEDY ESSENTIAL ZINC PASTE 113 GM TP SCH ×4 (09:41→20:59)
[2022-09-17] MEDS: NEOMY/BACITRA/POLYMYXIN B OINT UD PACKET TP SCH ×2 (09:41→20:59)
[2022-09-17] MEDS: ASCORBIC ACID 500 MG TABLET GT SCH (09:41)
[2022-09-17] MEDS: METOPROLOL TARTRATE 75 MG GT SCH ×2 (09:41→20:57)
[2022-09-17] MEDS: JEVITY 1.2 1000 ML LIQUID GT PRN (16:05)
[2022-09-17] MEDS: ENOXAPARIN SODIUM 40 MG/0.4 ML DISP.SYRIN SQ SCH (20:58)
[2022-09-18] VITALS (10 sets, daily range): TEMP 98.2; O2SAT 97–99
[2022-09-18] MEDS: ALBUTEROL SULFATE 2.5 MG/3 ML NEBU NEB SCH ×4 (01:30→19:52)
[2022-09-18] MEDS: IPRATROPIUM BROMIDE 0.5 MG/2.5 ML NEBU NEB SCH ×4 (01:30→19:52)
[2022-09-18] MEDS: PANTOPRAZOLE ORAL SUSPENSION 40 MG SUSPDR.PKT GT SCH (05:51)
[2022-09-18] MEDS: HYDROGEN PEROXIDE 3% 118 ML BOTTLE TP SCH ×2 (07:42→21:30)
[2022-09-18] MEDS: TRIAMCINOLONE ACET 0.1% CREAM 15 GM TUBE TP SCH ×2 (09:01→20:48)
[2022-09-18] MEDS: ASCORBIC ACID 500 MG TABLET GT SCH (09:01)
[2022-09-18] MEDS: METOPROLOL TARTRATE 75 MG GT SCH ×2 (09:01→20:47)
[2022-09-18] MEDS: REMEDY ESSENTIAL ZINC PASTE 113 GM TP SCH ×4 (09:01→20:48)
[2022-09-18] MEDS: ACIDOPHILUS/BULGARICUS CHEW TAB GT SCH ×2 (09:01→20:46)
[2022-09-18] MEDS: NEOMY/BACITRA/POLYMYXIN B OINT UD PACKET TP SCH ×2 (09:01→20:48)
[2022-09-18] MEDS: CLOPIDOGREL 75 MG TABLET GT SCH (09:01)
[2022-09-18] MEDS: levETIRAcetam 500 MG/5 ML LIQUID UDC GT SCH ×2 (09:01→20:46)
[2022-09-18] MEDS: JEVITY 1.2 1000 ML LIQUID GT PRN (14:10)
[2022-09-18] MEDS: ENOXAPARIN SODIUM 40 MG/0.4 ML DISP.SYRIN SQ SCH (21:49)
[2022-09-19] VITALS (11 sets, daily range): TEMP 97.4–98.1; O2SAT 97–99
[2022-09-19] MEDS: ALBUTEROL SULFATE 2.5 MG/3 ML NEBU NEB SCH ×4 (01:10→19:29)
[2022-09-19] MEDS: IPRATROPIUM BROMIDE 0.5 MG/2.5 ML NEBU NEB SCH ×4 (01:10→19:29)
[2022-09-19] MEDS: PANTOPRAZOLE ORAL SUSPENSION 40 MG SUSPDR.PKT GT SCH (05:53)
[2022-09-19] MEDS: HYDROGEN PEROXIDE 3% 118 ML BOTTLE TP SCH ×2 (07:50→20:56)
[2022-09-19] MEDS: ASCORBIC ACID 500 MG TABLET GT SCH (09:24)
[2022-09-19] MEDS: REMEDY ESSENTIAL ZINC PASTE 113 GM TP SCH ×4 (09:24→21:00)
[2022-09-19] MEDS: ACIDOPHILUS/BULGARICUS CHEW TAB GT SCH ×2 (09:24→21:00)
[2022-09-19] MEDS: METOPROLOL TARTRATE 75 MG GT SCH ×2 (09:24→21:00)
[2022-09-19] MEDS: NEOMY/BACITRA/POLYMYXIN B OINT UD PACKET TP SCH ×2 (09:24→21:00)
[2022-09-19] MEDS: TRIAMCINOLONE ACET 0.1% CREAM 15 GM TUBE TP SCH ×2 (09:24→21:00)
[2022-09-19] MEDS: levETIRAcetam 500 MG/5 ML LIQUID UDC GT SCH ×2 (09:24→21:00)
[2022-09-19] MEDS: CLOPIDOGREL 75 MG TABLET GT SCH (09:24)
[2022-09-19] MEDS: JEVITY 1.2 1000 ML LIQUID GT PRN (11:43)
[2022-09-19] MEDS: ENOXAPARIN SODIUM 40 MG/0.4 ML DISP.SYRIN SQ SCH (21:00)
[2022-09-20] VITALS (11 sets, daily range): TEMP 97.3–98.8; O2SAT 97–99
[2022-09-20] MEDS: ALBUTEROL SULFATE 2.5 MG/3 ML NEBU NEB SCH ×4 (01:10→19:50)
[2022-09-20] MEDS: IPRATROPIUM BROMIDE 0.5 MG/2.5 ML NEBU NEB SCH ×4 (01:10→19:50)
[2022-09-20] MEDS: PANTOPRAZOLE ORAL SUSPENSION 40 MG SUSPDR.PKT GT SCH (05:45)
[2022-09-20] MEDS: NEOMY/BACITRA/POLYMYXIN B OINT UD PACKET TP SCH ×2 (09:00→21:00)
[2022-09-20] MEDS: METOPROLOL TARTRATE 75 MG GT SCH ×2 (09:00→21:00)
[2022-09-20] MEDS: ACIDOPHILUS/BULGARICUS CHEW TAB GT SCH ×2 (09:00→21:00)
[2022-09-20] MEDS: ASCORBIC ACID 500 MG TABLET GT SCH (09:00)
[2022-09-20] MEDS: TRIAMCINOLONE ACET 0.1% CREAM 15 GM TUBE TP SCH ×2 (09:00→21:00)
[2022-09-20] MEDS: REMEDY ESSENTIAL ZINC PASTE 113 GM TP SCH ×4 (09:00→21:00)
[2022-09-20] MEDS: HYDROGEN PEROXIDE 3% 118 ML BOTTLE TP SCH ×2 (09:00→21:21)
[2022-09-20] MEDS: levETIRAcetam 500 MG/5 ML LIQUID UDC GT SCH ×2 (09:00→21:00)
[2022-09-20] MEDS: CLOPIDOGREL 75 MG TABLET GT SCH (09:00)
[2022-09-20] MEDS: ENOXAPARIN SODIUM 40 MG/0.4 ML DISP.SYRIN SQ SCH (21:00)
[2022-09-20] MEDS: JEVITY 1.2 1000 ML LIQUID GT PRN (23:17)
[2022-09-21] VITALS (11 sets, daily range): TEMP 97.8–98; O2SAT 97–99
[2022-09-21] MEDS: IPRATROPIUM BROMIDE 0.5 MG/2.5 ML NEBU NEB SCH ×4 (01:10→20:20)
[2022-09-21] MEDS: ALBUTEROL SULFATE 2.5 MG/3 ML NEBU NEB SCH ×4 (01:10→20:20)
[2022-09-21] MEDS: PANTOPRAZOLE ORAL SUSPENSION 40 MG SUSPDR.PKT GT SCH (05:15)
[2022-09-21] MEDS: ACIDOPHILUS/BULGARICUS CHEW TAB GT SCH ×2 (09:22→21:14)
[2022-09-21] MEDS: METOPROLOL TARTRATE 75 MG GT SCH ×2 (09:23→21:17)
[2022-09-21] MEDS: ASCORBIC ACID 500 MG TABLET GT SCH (09:23)
[2022-09-21] MEDS: CLOPIDOGREL 75 MG TABLET GT SCH (09:23)
[2022-09-21] MEDS: REMEDY ESSENTIAL ZINC PASTE 113 GM TP SCH ×4 (09:24→21:21)
[2022-09-21] MEDS: NEOMY/BACITRA/POLYMYXIN B OINT UD PACKET TP SCH ×2 (09:24→21:21)
[2022-09-21] MEDS: TRIAMCINOLONE ACET 0.1% CREAM 15 GM TUBE TP SCH ×2 (09:24→21:20)
[2022-09-21] MEDS: levETIRAcetam 500 MG/5 ML LIQUID UDC GT SCH ×2 (09:25→21:16)
[2022-09-21] MEDS: HYDROGEN PEROXIDE 3% 118 ML BOTTLE TP SCH ×2 (09:45→21:00)
[2022-09-21] MEDS: ENOXAPARIN SODIUM 40 MG/0.4 ML DISP.SYRIN SQ SCH (21:14)
[2022-09-22] VITALS (9 sets, daily range): TEMP 98.1; O2SAT 97–99
[2022-09-22] MEDS: ALBUTEROL SULFATE 2.5 MG/3 ML NEBU NEB SCH ×5 (00:52→23:15)
[2022-09-22] MEDS: IPRATROPIUM BROMIDE 0.5 MG/2.5 ML NEBU NEB SCH ×5 (00:52→23:15)
[2022-09-22] MEDS: JEVITY 1.2 1000 ML LIQUID GT PRN (00:55)
[2022-09-22] MEDS: PANTOPRAZOLE ORAL SUSPENSION 40 MG SUSPDR.PKT GT SCH (05:34)
[2022-09-22] MEDS: HYDROGEN PEROXIDE 3% 118 ML BOTTLE TP SCH ×2 (08:50→21:31)
[2022-09-22] MEDS: TRIAMCINOLONE ACET 0.1% CREAM 15 GM TUBE TP SCH ×2 (09:00→21:53)
[2022-09-22] MEDS: NEOMY/BACITRA/POLYMYXIN B OINT UD PACKET TP SCH ×2 (09:00→21:54)
[2022-09-22] MEDS: REMEDY ESSENTIAL ZINC PASTE 113 GM TP SCH ×4 (09:00→21:54)
[2022-09-22] MEDS: ACIDOPHILUS/BULGARICUS CHEW TAB GT SCH ×2 (09:11→21:52)
[2022-09-22] MEDS: METOPROLOL TARTRATE 75 MG GT SCH ×2 (09:11→21:52)
[2022-09-22] MEDS: ASCORBIC ACID 500 MG TABLET GT SCH (09:12)
[2022-09-22] MEDS: levETIRAcetam 500 MG/5 ML LIQUID UDC GT SCH ×2 (09:12→21:52)
[2022-09-22] MEDS: CLOPIDOGREL 75 MG TABLET GT SCH (09:12)
[2022-09-22] MEDS: ENOXAPARIN SODIUM 40 MG/0.4 ML DISP.SYRIN SQ SCH (21:00)
[2022-09-23] VITALS (9 sets, daily range): TEMP 97.8–98.8; O2SAT 97–99
[2022-09-23] MEDS: JEVITY 1.2 1000 ML LIQUID GT PRN ×2 (01:00→15:01)
[2022-09-23] MEDS: PANTOPRAZOLE ORAL SUSPENSION 40 MG SUSPDR.PKT GT SCH (06:20)
[2022-09-23] MEDS: IPRATROPIUM BROMIDE 0.5 MG/2.5 ML NEBU NEB SCH ×3 (07:09→21:44)
[2022-09-23] MEDS: ALBUTEROL SULFATE 2.5 MG/3 ML NEBU NEB SCH ×3 (07:09→21:44)
[2022-09-23] MEDS: HYDROGEN PEROXIDE 3% 118 ML BOTTLE TP SCH ×2 (08:39→21:44)
[2022-09-23] MEDS: TRIAMCINOLONE ACET 0.1% CREAM 15 GM TUBE TP SCH ×2 (09:00→21:42)
[2022-09-23] MEDS: NEOMY/BACITRA/POLYMYXIN B OINT UD PACKET TP SCH ×2 (09:00→21:42)
[2022-09-23] MEDS: ACIDOPHILUS/BULGARICUS CHEW TAB GT SCH ×2 (09:22→21:38)
[2022-09-23] MEDS: levETIRAcetam 500 MG/5 ML LIQUID UDC GT SCH ×2 (09:23→21:38)
[2022-09-23] MEDS: CLOPIDOGREL 75 MG TABLET GT SCH (09:23)
[2022-09-23] MEDS: REMEDY ESSENTIAL ZINC PASTE 113 GM TP SCH ×4 (09:23→21:42)
[2022-09-23] MEDS: ASCORBIC ACID 500 MG TABLET GT SCH (09:23)
[2022-09-23] MEDS: METOPROLOL TARTRATE 75 MG GT SCH ×2 (09:34→21:41)
[2022-09-23] MEDS: ENOXAPARIN SODIUM 40 MG/0.4 ML DISP.SYRIN SQ SCH (21:42)
[2022-09-24] VITALS (13 sets, daily range): TEMP 98.5–98.8; O2SAT 97–99
[2022-09-24] MEDS: ALBUTEROL SULFATE 2.5 MG/3 ML NEBU NEB SCH ×4 (00:32→19:14)
[2022-09-24] MEDS: IPRATROPIUM BROMIDE 0.5 MG/2.5 ML NEBU NEB SCH ×4 (00:32→19:14)
[2022-09-24] MEDS: PANTOPRAZOLE ORAL SUSPENSION 40 MG SUSPDR.PKT GT SCH (05:21)
[2022-09-24] MEDS: JEVITY 1.2 1000 ML LIQUID GT PRN ×2 (07:04→23:38)
[2022-09-24] MEDS: HYDROGEN PEROXIDE 3% 118 ML BOTTLE TP SCH ×2 (09:00→21:00)
[2022-09-24] MEDS: TRIAMCINOLONE ACET 0.1% CREAM 15 GM TUBE TP SCH ×2 (09:00→21:03)
[2022-09-24] MEDS: NEOMY/BACITRA/POLYMYXIN B OINT UD PACKET TP SCH ×2 (09:00→21:03)
[2022-09-24] MEDS: ACIDOPHILUS/BULGARICUS CHEW TAB GT SCH ×2 (09:34→21:02)
[2022-09-24] MEDS: levETIRAcetam 500 MG/5 ML LIQUID UDC GT SCH ×2 (09:37→21:02)
[2022-09-24] MEDS: METOPROLOL TARTRATE 75 MG GT SCH ×2 (09:41→21:03)
[2022-09-24] MEDS: CLOPIDOGREL 75 MG TABLET GT SCH (09:42)
[2022-09-24] MEDS: REMEDY ESSENTIAL ZINC PASTE 113 GM TP SCH ×4 (09:43→21:03)
[2022-09-24] MEDS: ASCORBIC ACID 500 MG TABLET GT SCH (09:43)
[2022-09-24] MEDS: ENOXAPARIN SODIUM 40 MG/0.4 ML DISP.SYRIN SQ SCH (21:34)
[2022-09-25] VITALS (13 sets, daily range): TEMP 97.7–98.8; O2SAT 97–99
[2022-09-25] MEDS: ALBUTEROL SULFATE 2.5 MG/3 ML NEBU NEB SCH ×4 (01:27→19:18)
[2022-09-25] MEDS: IPRATROPIUM BROMIDE 0.5 MG/2.5 ML NEBU NEB SCH ×4 (01:27→19:18)
[2022-09-25] MEDS: PANTOPRAZOLE ORAL SUSPENSION 40 MG SUSPDR.PKT GT SCH (05:05)
[2022-09-25] MEDS: levETIRAcetam 500 MG/5 ML LIQUID UDC GT SCH ×2 (08:02→21:19)
[2022-09-25] MEDS: ACIDOPHILUS/BULGARICUS CHEW TAB GT SCH ×2 (08:02→21:19)
[2022-09-25] MEDS: METOPROLOL TARTRATE 75 MG GT SCH ×2 (08:05→21:20)
[2022-09-25] MEDS: ASCORBIC ACID 500 MG TABLET GT SCH (08:06)
[2022-09-25] MEDS: CLOPIDOGREL 75 MG TABLET GT SCH (08:06)
[2022-09-25] MEDS: REMEDY ESSENTIAL ZINC PASTE 113 GM TP SCH ×4 (09:00→21:20)
[2022-09-25] MEDS: NEOMY/BACITRA/POLYMYXIN B OINT UD PACKET TP SCH ×2 (09:00→21:20)
[2022-09-25] MEDS: TRIAMCINOLONE ACET 0.1% CREAM 15 GM TUBE TP SCH ×2 (09:00→21:20)
[2022-09-25] MEDS: HYDROGEN PEROXIDE 3% 118 ML BOTTLE TP SCH ×2 (09:55→19:18)
[2022-09-25] MEDS: JEVITY 1.2 1000 ML LIQUID GT PRN (17:45)
[2022-09-25] MEDS: ENOXAPARIN SODIUM 40 MG/0.4 ML DISP.SYRIN SQ SCH (21:22)
[2022-09-26] VITALS (11 sets, daily range): TEMP 97.2–98.8; O2SAT 97–99
[2022-09-26] MEDS: IPRATROPIUM BROMIDE 0.5 MG/2.5 ML NEBU NEB SCH ×4 (00:39→19:14)
[2022-09-26] MEDS: ALBUTEROL SULFATE 2.5 MG/3 ML NEBU NEB SCH ×4 (00:39→19:14)
[2022-09-26] MEDS: PANTOPRAZOLE ORAL SUSPENSION 40 MG SUSPDR.PKT GT SCH (05:33)
[2022-09-26] MEDS: ACIDOPHILUS/BULGARICUS CHEW TAB GT SCH ×2 (09:43→21:31)
[2022-09-26] MEDS: CLOPIDOGREL 75 MG TABLET GT SCH (09:44)
[2022-09-26] MEDS: levETIRAcetam 500 MG/5 ML LIQUID UDC GT SCH ×2 (09:44→21:31)
[2022-09-26] MEDS: METOPROLOL TARTRATE 75 MG GT SCH ×2 (09:44→21:31)
[2022-09-26] MEDS: TRIAMCINOLONE ACET 0.1% CREAM 15 GM TUBE TP SCH ×2 (09:45→21:32)
[2022-09-26] MEDS: NEOMY/BACITRA/POLYMYXIN B OINT UD PACKET TP SCH ×2 (09:45→21:32)
[2022-09-26] MEDS: REMEDY ESSENTIAL ZINC PASTE 113 GM TP SCH ×4 (09:45→21:32)
[2022-09-26] MEDS: ASCORBIC ACID 500 MG TABLET GT SCH (09:45)
[2022-09-26] MEDS: HYDROGEN PEROXIDE 3% 118 ML BOTTLE TP SCH ×2 (10:40→19:14)
[2022-09-26] MEDS: ENOXAPARIN SODIUM 40 MG/0.4 ML DISP.SYRIN SQ SCH (21:00)
[2022-09-27] VITALS (10 sets, daily range): TEMP 98.2–99.1; O2SAT 96–99
[2022-09-27] MEDS: IPRATROPIUM BROMIDE 0.5 MG/2.5 ML NEBU NEB SCH ×4 (00:40→19:58)
[2022-09-27] MEDS: ALBUTEROL SULFATE 2.5 MG/3 ML NEBU NEB SCH ×4 (00:40→19:58)
[2022-09-27] MEDS: JEVITY 1.2 1000 ML LIQUID GT PRN (01:31)
[2022-09-27] MEDS: PANTOPRAZOLE ORAL SUSPENSION 40 MG SUSPDR.PKT GT SCH (05:17)
[2022-09-27] MEDS: CLOPIDOGREL 75 MG TABLET GT SCH (09:01)
[2022-09-27] MEDS: levETIRAcetam 500 MG/5 ML LIQUID UDC GT SCH ×2 (09:01→20:23)
[2022-09-27] MEDS: ACIDOPHILUS/BULGARICUS CHEW TAB GT SCH ×2 (09:01→20:23)
[2022-09-27] MEDS: ASCORBIC ACID 500 MG TABLET GT SCH (09:01)
[2022-09-27] MEDS: METOPROLOL TARTRATE 75 MG GT SCH ×2 (09:01→20:24)
[2022-09-27] MEDS: REMEDY ESSENTIAL ZINC PASTE 113 GM TP SCH ×4 (09:02→20:25)
[2022-09-27] MEDS: NEOMY/BACITRA/POLYMYXIN B OINT UD PACKET TP SCH ×2 (09:02→20:25)
[2022-09-27] MEDS: TRIAMCINOLONE ACET 0.1% CREAM 15 GM TUBE TP SCH ×2 (09:02→20:25)
[2022-09-27] MEDS: HYDROGEN PEROXIDE 3% 118 ML BOTTLE TP SCH ×2 (09:08→19:59)
[2022-09-27] MEDS: ENOXAPARIN SODIUM 40 MG/0.4 ML DISP.SYRIN SQ SCH (20:25)
[2022-09-28] VITALS (11 sets, daily range): TEMP 98.6–98.9; O2SAT 96–99
[2022-09-28] MEDS: IPRATROPIUM BROMIDE 0.5 MG/2.5 ML NEBU NEB SCH ×4 (01:16→19:31)
[2022-09-28] MEDS: ALBUTEROL SULFATE 2.5 MG/3 ML NEBU NEB SCH ×4 (01:16→19:31)
[2022-09-28] MEDS: PANTOPRAZOLE ORAL SUSPENSION 40 MG SUSPDR.PKT GT SCH (05:09)
[2022-09-28] MEDS: ACIDOPHILUS/BULGARICUS CHEW TAB GT SCH ×2 (09:05→21:58)
[2022-09-28] MEDS: levETIRAcetam 500 MG/5 ML LIQUID UDC GT SCH ×2 (09:05→21:58)
[2022-09-28] MEDS: ASCORBIC ACID 500 MG TABLET GT SCH (09:06)
[2022-09-28] MEDS: CLOPIDOGREL 75 MG TABLET GT SCH (09:06)
[2022-09-28] MEDS: REMEDY ESSENTIAL ZINC PASTE 113 GM TP SCH ×4 (09:06→21:00)
[2022-09-28] MEDS: METOPROLOL TARTRATE 75 MG GT SCH ×2 (09:06→21:00)
[2022-09-28] MEDS: TRIAMCINOLONE ACET 0.1% CREAM 15 GM TUBE TP SCH ×2 (09:06→21:00)
[2022-09-28] MEDS: NEOMY/BACITRA/POLYMYXIN B OINT UD PACKET TP SCH ×2 (09:06→21:00)
[2022-09-28] MEDS: HYDROGEN PEROXIDE 3% 118 ML BOTTLE TP SCH ×2 (09:25→19:31)
[2022-09-28] MEDS: JEVITY 1.2 1000 ML LIQUID GT PRN (13:43)
[2022-09-28] MEDS: ENOXAPARIN SODIUM 40 MG/0.4 ML DISP.SYRIN SQ SCH (21:00)
[2022-09-29] VITALS (10 sets, daily range): TEMP 98.6–98.7; O2SAT 97–99
[2022-09-29] MEDS: IPRATROPIUM BROMIDE 0.5 MG/2.5 ML NEBU NEB SCH ×4 (01:40→19:26)
[2022-09-29] MEDS: ALBUTEROL SULFATE 2.5 MG/3 ML NEBU NEB SCH ×4 (01:41→19:26)
[2022-09-29] MEDS: PANTOPRAZOLE ORAL SUSPENSION 40 MG SUSPDR.PKT GT SCH (05:58)
[2022-09-29] MEDS: JEVITY 1.2 1000 ML LIQUID GT PRN ×2 (06:52→23:00)
[2022-09-29] MEDS: HYDROGEN PEROXIDE 3% 118 ML BOTTLE TP SCH ×2 (08:39→19:26)
[2022-09-29] MEDS: levETIRAcetam 500 MG/5 ML LIQUID UDC GT SCH ×2 (09:41→21:07)
[2022-09-29] MEDS: ACIDOPHILUS/BULGARICUS CHEW TAB GT SCH ×2 (09:41→21:07)
[2022-09-29] MEDS: METOPROLOL TARTRATE 75 MG GT SCH ×2 (09:42→21:09)
[2022-09-29] MEDS: CLOPIDOGREL 75 MG TABLET GT SCH (09:42)
[2022-09-29] MEDS: ASCORBIC ACID 500 MG TABLET GT SCH (09:43)
[2022-09-29] MEDS: NEOMY/BACITRA/POLYMYXIN B OINT UD PACKET TP SCH ×2 (09:43→21:11)
[2022-09-29] MEDS: TRIAMCINOLONE ACET 0.1% CREAM 15 GM TUBE TP SCH ×2 (09:43→21:10)
[2022-09-29] MEDS: REMEDY ESSENTIAL ZINC PASTE 113 GM TP SCH ×4 (09:43→21:10)
[2022-09-29] MEDS: ENOXAPARIN SODIUM 40 MG/0.4 ML DISP.SYRIN SQ SCH (21:09)
[2022-09-30] VITALS (10 sets, daily range): TEMP 98.3–98.6; O2SAT 97–99
[2022-09-30] MEDS: IPRATROPIUM BROMIDE 0.5 MG/2.5 ML NEBU NEB SCH ×4 (01:01→19:30)
[2022-09-30] MEDS: ALBUTEROL SULFATE 2.5 MG/3 ML NEBU NEB SCH ×4 (01:01→19:30)
[2022-09-30] MEDS: PANTOPRAZOLE ORAL SUSPENSION 40 MG SUSPDR.PKT GT SCH (06:08)
[2022-09-30] MEDS: HYDROGEN PEROXIDE 3% 118 ML BOTTLE TP SCH ×2 (07:55→09:34)
[2022-09-30] MEDS: levETIRAcetam 500 MG/5 ML LIQUID UDC GT SCH ×2 (08:06→21:41)
[2022-09-30] MEDS: ACIDOPHILUS/BULGARICUS CHEW TAB GT SCH ×2 (08:06→21:41)
[2022-09-30] MEDS: CLOPIDOGREL 75 MG TABLET GT SCH (08:07)
[2022-09-30] MEDS: TRIAMCINOLONE ACET 0.1% CREAM 15 GM TUBE TP SCH ×2 (08:07→21:45)
[2022-09-30] MEDS: ASCORBIC ACID 500 MG TABLET GT SCH (08:07)
[2022-09-30] MEDS: METOPROLOL TARTRATE 75 MG GT SCH ×2 (08:07→21:42)
[2022-09-30] MEDS: REMEDY ESSENTIAL ZINC PASTE 113 GM TP SCH ×4 (08:07→21:45)
[2022-09-30] MEDS: NEOMY/BACITRA/POLYMYXIN B OINT UD PACKET TP SCH (08:07)
[2022-09-30] MEDS: ENOXAPARIN SODIUM 40 MG/0.4 ML DISP.SYRIN SQ SCH (21:43)
[2022-10-01] VITALS (9 sets, daily range): TEMP 98; O2SAT 98–99
[2022-10-01] MEDS: IPRATROPIUM BROMIDE 0.5 MG/2.5 ML NEBU NEB SCH ×4 (01:14→19:09)
[2022-10-01] MEDS: ALBUTEROL SULFATE 2.5 MG/3 ML NEBU NEB SCH ×4 (01:14→19:09)
[2022-10-01] MEDS: PANTOPRAZOLE ORAL SUSPENSION 40 MG SUSPDR.PKT GT SCH (05:39)
[2022-10-01] MEDS: ASCORBIC ACID 500 MG TABLET GT SCH (09:17)
[2022-10-01] MEDS: CLOPIDOGREL 75 MG TABLET GT SCH (09:17)
[2022-10-01] MEDS: TRIAMCINOLONE ACET 0.1% CREAM 15 GM TUBE TP SCH ×2 (09:17→20:49)
[2022-10-01] MEDS: levETIRAcetam 500 MG/5 ML LIQUID UDC GT SCH ×2 (09:17→20:48)
[2022-10-01] MEDS: METOPROLOL TARTRATE 75 MG GT SCH ×2 (09:17→20:49)
[2022-10-01] MEDS: ACIDOPHILUS/BULGARICUS CHEW TAB GT SCH ×2 (09:17→20:47)
[2022-10-01] MEDS: REMEDY ESSENTIAL ZINC PASTE 113 GM TP SCH ×4 (09:17→20:49)
[2022-10-01] MEDS: HYDROGEN PEROXIDE 3% 118 ML BOTTLE TP SCH ×2 (09:22→19:09)
[2022-10-01] MEDS: NEOMY/BACITRA/POLYMYXIN B OINT UD PACKET TP SCH ×2 (11:27→20:49)
[2022-10-01] MEDS: ENOXAPARIN SODIUM 40 MG/0.4 ML DISP.SYRIN SQ SCH (21:00)
[2022-10-02] VITALS (10 sets, daily range): TEMP 98–98.8; O2SAT 98–99
[2022-10-02] MEDS: ALBUTEROL SULFATE 2.5 MG/3 ML NEBU NEB SCH ×4 (00:59→18:34)
[2022-10-02] MEDS: IPRATROPIUM BROMIDE 0.5 MG/2.5 ML NEBU NEB SCH ×5 (00:59→18:34)
[2022-10-02] MEDS: JEVITY 1.2 1000 ML LIQUID GT PRN ×2 (02:40→19:25)
[2022-10-02] MEDS: PANTOPRAZOLE ORAL SUSPENSION 40 MG SUSPDR.PKT GT SCH (06:01)
[2022-10-02] MEDS: HYDROGEN PEROXIDE 3% 118 ML BOTTLE TP SCH ×3 (07:55→18:34)
[2022-10-02] MEDS: TRIAMCINOLONE ACET 0.1% CREAM 15 GM TUBE TP SCH ×2 (09:00→21:38)
[2022-10-02] MEDS: REMEDY ESSENTIAL ZINC PASTE 113 GM TP SCH ×4 (09:00→21:38)
[2022-10-02] MEDS: CLOPIDOGREL 75 MG TABLET GT SCH (09:00)
[2022-10-02] MEDS: ACIDOPHILUS/BULGARICUS CHEW TAB GT SCH ×2 (09:00→21:37)
[2022-10-02] MEDS: NEOMY/BACITRA/POLYMYXIN B OINT UD PACKET TP SCH ×2 (09:00→21:38)
[2022-10-02] MEDS: levETIRAcetam 500 MG/5 ML LIQUID UDC GT SCH ×2 (09:00→21:37)
[2022-10-02] MEDS: ASCORBIC ACID 500 MG TABLET GT SCH (09:00)
[2022-10-02] MEDS: METOPROLOL TARTRATE 75 MG GT SCH ×2 (09:00→21:38)
[2022-10-02] MEDS: ENOXAPARIN SODIUM 40 MG/0.4 ML DISP.SYRIN SQ SCH (21:59)
[2022-10-03] VITALS (10 sets, daily range): TEMP 98.5; O2SAT 97–99
[2022-10-03] MEDS: ALBUTEROL SULFATE 2.5 MG/3 ML NEBU NEB SCH ×4 (01:58→18:34)
[2022-10-03] MEDS: PANTOPRAZOLE ORAL SUSPENSION 40 MG SUSPDR.PKT GT SCH (05:15)
[2022-10-03] MEDS: IPRATROPIUM BROMIDE 0.5 MG/2.5 ML NEBU NEB SCH ×3 (07:35→18:34)
[2022-10-03] MEDS: ACIDOPHILUS/BULGARICUS CHEW TAB GT SCH ×2 (08:55→20:22)
[2022-10-03] MEDS: TRIAMCINOLONE ACET 0.1% CREAM 15 GM TUBE TP SCH ×2 (09:55→20:22)
[2022-10-03] MEDS: METOPROLOL TARTRATE 75 MG GT SCH ×2 (09:55→21:16)
[2022-10-03] MEDS: REMEDY ESSENTIAL ZINC PASTE 113 GM TP SCH ×4 (09:55→20:22)
[2022-10-03] MEDS: ASCORBIC ACID 500 MG TABLET GT SCH (09:55)
[2022-10-03] MEDS: NEOMY/BACITRA/POLYMYXIN B OINT UD PACKET TP SCH ×2 (09:55→20:22)
[2022-10-03] MEDS: levETIRAcetam 500 MG/5 ML LIQUID UDC GT SCH ×2 (09:55→20:22)
[2022-10-03] MEDS: CLOPIDOGREL 75 MG TABLET GT SCH (09:55)
[2022-10-03] MEDS: JEVITY 1.2 1000 ML LIQUID GT PRN (14:19)
[2022-10-03] MEDS: ENOXAPARIN SODIUM 40 MG/0.4 ML DISP.SYRIN SQ SCH (21:30)
[2022-10-03] MEDS: HYDROGEN PEROXIDE 3% 118 ML BOTTLE TP SCH (21:42)
[2022-10-04] VITALS (14 sets, daily range): TEMP 98.3–98.5; O2SAT 98–99
[2022-10-04] MEDS: IPRATROPIUM BROMIDE 0.5 MG/2.5 ML NEBU NEB SCH ×4 (02:16→23:11)
[2022-10-04] MEDS: ALBUTEROL SULFATE 2.5 MG/3 ML NEBU NEB SCH ×4 (02:17→23:12)
[2022-10-04] MEDS: PANTOPRAZOLE ORAL SUSPENSION 40 MG SUSPDR.PKT GT SCH (05:24)
[2022-10-04] MEDS: ACIDOPHILUS/BULGARICUS CHEW TAB GT SCH ×2 (08:37→20:38)
[2022-10-04] MEDS: METOPROLOL TARTRATE 75 MG GT SCH ×2 (08:38→20:44)
[2022-10-04] MEDS: levETIRAcetam 500 MG/5 ML LIQUID UDC GT SCH ×2 (08:38→20:38)
[2022-10-04] MEDS: CLOPIDOGREL 75 MG TABLET GT SCH (08:39)
[2022-10-04] MEDS: TRIAMCINOLONE ACET 0.1% CREAM 15 GM TUBE TP SCH ×2 (08:41→20:38)
[2022-10-04] MEDS: NEOMY/BACITRA/POLYMYXIN B OINT UD PACKET TP SCH ×2 (08:41→20:38)
[2022-10-04] MEDS: REMEDY ESSENTIAL ZINC PASTE 113 GM TP SCH ×4 (08:41→20:38)
[2022-10-04] MEDS: ASCORBIC ACID 500 MG TABLET GT SCH (09:04)
[2022-10-04] MEDS: HYDROGEN PEROXIDE 3% 118 ML BOTTLE TP SCH ×2 (09:04→23:12)
[2022-10-04] MEDS: ENOXAPARIN SODIUM 40 MG/0.4 ML DISP.SYRIN SQ SCH (21:00)
[2022-10-05] VITALS (11 sets, daily range): TEMP 97.8–98; O2SAT 98–99
[2022-10-05] MEDS: IPRATROPIUM BROMIDE 0.5 MG/2.5 ML NEBU NEB SCH ×4 (03:05→19:45)
[2022-10-05] MEDS: ALBUTEROL SULFATE 2.5 MG/3 ML NEBU NEB SCH ×4 (03:05→19:45)
[2022-10-05] MEDS: PANTOPRAZOLE ORAL SUSPENSION 40 MG SUSPDR.PKT GT SCH (06:17)
[2022-10-05] MEDS: HYDROGEN PEROXIDE 3% 118 ML BOTTLE TP SCH ×2 (09:54→19:46)
[2022-10-05] MEDS: TRIAMCINOLONE ACET 0.1% CREAM 15 GM TUBE TP SCH ×2 (09:59→21:27)
[2022-10-05] MEDS: ASCORBIC ACID 500 MG TABLET GT SCH (09:59)
[2022-10-05] MEDS: levETIRAcetam 500 MG/5 ML LIQUID UDC GT SCH ×2 (09:59→21:20)
[2022-10-05] MEDS: REMEDY ESSENTIAL ZINC PASTE 113 GM TP SCH ×4 (09:59→21:27)
[2022-10-05] MEDS: METOPROLOL TARTRATE 75 MG GT SCH ×2 (09:59→21:22)
[2022-10-05] MEDS: CLOPIDOGREL 75 MG TABLET GT SCH (09:59)
[2022-10-05] MEDS: ACIDOPHILUS/BULGARICUS CHEW TAB GT SCH ×2 (09:59→21:20)
[2022-10-05] MEDS: NEOMY/BACITRA/POLYMYXIN B OINT UD PACKET TP SCH ×2 (09:59→21:27)
[2022-10-05] MEDS: ENOXAPARIN SODIUM 40 MG/0.4 ML DISP.SYRIN SQ SCH (21:24)
[2022-10-05] MEDS: TRIAMCINOLONE ACET 0.1% CREAM 15 GM TUBE TOP SCH (21:28)
[2022-10-05] MEDS: NYSTATIN CREAM 30 GM TUBE TOP SCH (21:28)
[2022-10-06] VITALS (9 sets, daily range): TEMP 99; O2SAT 98–99
[2022-10-06] MEDS: ALBUTEROL SULFATE 2.5 MG/3 ML NEBU NEB SCH ×4 (00:51→20:50)
[2022-10-06] MEDS: IPRATROPIUM BROMIDE 0.5 MG/2.5 ML NEBU NEB SCH ×4 (00:51→20:50)
[2022-10-06] MEDS: PANTOPRAZOLE ORAL SUSPENSION 40 MG SUSPDR.PKT GT SCH (05:29)
[2022-10-06] MEDS: HYDROGEN PEROXIDE 3% 118 ML BOTTLE TP SCH ×2 (07:50→21:00)
[2022-10-06] MEDS: ACIDOPHILUS/BULGARICUS CHEW TAB GT SCH ×2 (09:18→21:18)
[2022-10-06] MEDS: levETIRAcetam 500 MG/5 ML LIQUID UDC GT SCH ×2 (09:19→21:18)
[2022-10-06] MEDS: METOPROLOL TARTRATE 75 MG GT SCH ×2 (09:19→21:18)
[2022-10-06] MEDS: ASCORBIC ACID 500 MG TABLET GT SCH (09:19)
[2022-10-06] MEDS: CLOPIDOGREL 75 MG TABLET GT SCH (09:19)
[2022-10-06] MEDS: TRIAMCINOLONE ACET 0.1% CREAM 15 GM TUBE TP SCH ×2 (09:20→21:19)
[2022-10-06] MEDS: NYSTATIN CREAM 30 GM TUBE TOP SCH ×2 (09:20→21:19)
[2022-10-06] MEDS: NEOMY/BACITRA/POLYMYXIN B OINT UD PACKET TP SCH ×2 (09:20→21:20)
[2022-10-06] MEDS: REMEDY ESSENTIAL ZINC PASTE 113 GM TP SCH ×4 (09:20→21:20)
[2022-10-06] MEDS: TRIAMCINOLONE ACET 0.1% CREAM 15 GM TUBE TOP SCH ×2 (09:20→21:19)
[2022-10-06] MEDS: JEVITY 1.2 1000 ML LIQUID GT PRN (18:10)
[2022-10-06] MEDS: ENOXAPARIN SODIUM 40 MG/0.4 ML DISP.SYRIN SQ SCH (21:19)
[2022-10-07] VITALS (10 sets, daily range): TEMP 98.1; O2SAT 98–99
[2022-10-07] MEDS: IPRATROPIUM BROMIDE 0.5 MG/2.5 ML NEBU NEB SCH ×4 (01:57→13:37)
[2022-10-07] MEDS: ALBUTEROL SULFATE 2.5 MG/3 ML NEBU NEB SCH ×4 (01:57→13:37)
[2022-10-07] MEDS: PANTOPRAZOLE ORAL SUSPENSION 40 MG SUSPDR.PKT GT SCH (05:15)
[2022-10-07] MEDS: HYDROGEN PEROXIDE 3% 118 ML BOTTLE TP SCH ×2 (07:15→22:20)
[2022-10-07] MEDS: levETIRAcetam 500 MG/5 ML LIQUID UDC GT SCH ×2 (09:05→21:07)
[2022-10-07] MEDS: ACIDOPHILUS/BULGARICUS CHEW TAB GT SCH ×2 (09:05→21:07)
[2022-10-07] MEDS: METOPROLOL TARTRATE 75 MG GT SCH ×2 (09:09→21:09)
[2022-10-07] MEDS: ASCORBIC ACID 500 MG TABLET GT SCH (09:09)
[2022-10-07] MEDS: CLOPIDOGREL 75 MG TABLET GT SCH (09:09)
[2022-10-07] MEDS: TRIAMCINOLONE ACET 0.1% CREAM 15 GM TUBE TP SCH (09:10)
[2022-10-07] MEDS: REMEDY ESSENTIAL ZINC PASTE 113 GM TP SCH ×4 (09:10→21:10)
[2022-10-07] MEDS: NYSTATIN CREAM 30 GM TUBE TOP SCH ×2 (09:10→21:10)
[2022-10-07] MEDS: NEOMY/BACITRA/POLYMYXIN B OINT UD PACKET TP SCH ×2 (09:10→21:10)
[2022-10-07] MEDS: TRIAMCINOLONE ACET 0.1% CREAM 15 GM TUBE TOP SCH ×2 (09:10→21:10)
[2022-10-07] MEDS: ACETAMINOPHEN 650 MG/20 ML UDC- SA PATIENTS-PAIN ONLY GT PRN (09:17)
[2022-10-07] MEDS: JEVITY 1.2 1000 ML LIQUID GT PRN (12:59)
[2022-10-07] MEDS: ENOXAPARIN SODIUM 40 MG/0.4 ML DISP.SYRIN SQ SCH (21:10)
[2022-10-08] VITALS (11 sets, daily range): TEMP 98.3; O2SAT 98–99
[2022-10-08] MEDS: IPRATROPIUM BROMIDE 0.5 MG/2.5 ML NEBU NEB SCH ×4 (02:14→21:56)
[2022-10-08] MEDS: ALBUTEROL SULFATE 2.5 MG/3 ML NEBU NEB SCH ×4 (02:14→21:56)
[2022-10-08] MEDS: JEVITY 1.2 1000 ML LIQUID GT PRN (04:11)
[2022-10-08] MEDS: PANTOPRAZOLE ORAL SUSPENSION 40 MG SUSPDR.PKT GT SCH (05:26)
[2022-10-08] MEDS: REMEDY ESSENTIAL ZINC PASTE 113 GM TP SCH ×4 (09:00→20:33)
[2022-10-08] MEDS: NEOMY/BACITRA/POLYMYXIN B OINT UD PACKET TP SCH ×2 (09:00→20:33)
[2022-10-08] MEDS: NYSTATIN CREAM 30 GM TUBE TOP SCH ×2 (09:00→20:33)
[2022-10-08] MEDS: TRIAMCINOLONE ACET 0.1% CREAM 15 GM TUBE TOP SCH ×2 (09:00→20:33)
[2022-10-08] MEDS: HYDROGEN PEROXIDE 3% 118 ML BOTTLE TP SCH ×2 (09:06→21:57)
[2022-10-08] MEDS: ACIDOPHILUS/BULGARICUS CHEW TAB GT SCH ×2 (09:10→20:32)
[2022-10-08] MEDS: levETIRAcetam 500 MG/5 ML LIQUID UDC GT SCH ×2 (09:10→20:32)
[2022-10-08] MEDS: ASCORBIC ACID 500 MG TABLET GT SCH (09:11)
[2022-10-08] MEDS: CLOPIDOGREL 75 MG TABLET GT SCH (09:12)
[2022-10-08] MEDS: METOPROLOL TARTRATE 75 MG GT SCH ×2 (09:13→21:00)
[2022-10-08] MEDS: ENOXAPARIN SODIUM 40 MG/0.4 ML DISP.SYRIN SQ SCH (20:33)
[2022-10-09] VITALS (11 sets, daily range): TEMP 96.6–97.8; O2SAT 98–99
[2022-10-09] MEDS: IPRATROPIUM BROMIDE 0.5 MG/2.5 ML NEBU NEB SCH ×4 (00:25→19:12)
[2022-10-09] MEDS: ALBUTEROL SULFATE 2.5 MG/3 ML NEBU NEB SCH ×4 (00:25→19:12)
[2022-10-09] MEDS: JEVITY 1.2 1000 ML LIQUID GT PRN ×2 (01:00→18:39)
[2022-10-09] MEDS: PANTOPRAZOLE ORAL SUSPENSION 40 MG SUSPDR.PKT GT SCH (05:37)
[2022-10-09] MEDS: HYDROGEN PEROXIDE 3% 118 ML BOTTLE TP SCH ×2 (07:55→19:12)
[2022-10-09] MEDS: ACIDOPHILUS/BULGARICUS CHEW TAB GT SCH ×2 (09:05→20:59)
[2022-10-09] MEDS: levETIRAcetam 500 MG/5 ML LIQUID UDC GT SCH ×2 (09:06→20:59)
[2022-10-09] MEDS: METOPROLOL TARTRATE 75 MG GT SCH ×2 (09:07→21:03)
[2022-10-09] MEDS: ASCORBIC ACID 500 MG TABLET GT SCH (09:07)
[2022-10-09] MEDS: CLOPIDOGREL 75 MG TABLET GT SCH (09:07)
[2022-10-09] MEDS: NYSTATIN CREAM 30 GM TUBE TOP SCH ×2 (09:08→21:03)
[2022-10-09] MEDS: REMEDY ESSENTIAL ZINC PASTE 113 GM TP SCH ×4 (09:08→21:04)
[2022-10-09] MEDS: NEOMY/BACITRA/POLYMYXIN B OINT UD PACKET TP SCH ×2 (09:08→21:04)
[2022-10-09] MEDS: TRIAMCINOLONE ACET 0.1% CREAM 15 GM TUBE TOP SCH ×2 (09:08→21:03)
[2022-10-09] MEDS: ENOXAPARIN SODIUM 40 MG/0.4 ML DISP.SYRIN SQ SCH (21:00)
[2022-10-10] VITALS (10 sets, daily range): TEMP 97.8–98.4; O2SAT 97–99
[2022-10-10] MEDS: ALBUTEROL SULFATE 2.5 MG/3 ML NEBU NEB SCH ×4 (01:33→19:50)
[2022-10-10] MEDS: IPRATROPIUM BROMIDE 0.5 MG/2.5 ML NEBU NEB SCH ×4 (01:33→19:50)
[2022-10-10] MEDS: PANTOPRAZOLE ORAL SUSPENSION 40 MG SUSPDR.PKT GT SCH (05:43)
[2022-10-10] MEDS: ACIDOPHILUS/BULGARICUS CHEW TAB GT SCH ×2 (09:25→20:51)
[2022-10-10] MEDS: levETIRAcetam 500 MG/5 ML LIQUID UDC GT SCH ×2 (09:25→20:53)
[2022-10-10] MEDS: METOPROLOL TARTRATE 75 MG GT SCH ×2 (09:26→20:53)
[2022-10-10] MEDS: CLOPIDOGREL 75 MG TABLET GT SCH (09:26)
[2022-10-10] MEDS: NYSTATIN CREAM 30 GM TUBE TOP SCH ×2 (09:27→20:54)
[2022-10-10] MEDS: TRIAMCINOLONE ACET 0.1% CREAM 15 GM TUBE TOP SCH ×2 (09:27→20:53)
[2022-10-10] MEDS: ASCORBIC ACID 500 MG TABLET GT SCH (09:27)
[2022-10-10] MEDS: REMEDY ESSENTIAL ZINC PASTE 113 GM TP SCH ×4 (09:28→20:54)
[2022-10-10] MEDS: NEOMY/BACITRA/POLYMYXIN B OINT UD PACKET TP SCH ×2 (09:28→20:54)
[2022-10-10] MEDS: HYDROGEN PEROXIDE 3% 118 ML BOTTLE TP SCH ×2 (09:40→21:00)
[2022-10-10] MEDS: JEVITY 1.2 1000 ML LIQUID GT PRN (12:27)
[2022-10-10] MEDS: ENOXAPARIN SODIUM 40 MG/0.4 ML DISP.SYRIN SQ SCH (20:58)
[2022-10-11] VITALS (10 sets, daily range): TEMP 98.5–99.2; O2SAT 97–99
[2022-10-11] MEDS: IPRATROPIUM BROMIDE 0.5 MG/2.5 ML NEBU NEB SCH ×4 (01:28→19:10)
[2022-10-11] MEDS: ALBUTEROL SULFATE 2.5 MG/3 ML NEBU NEB SCH ×4 (01:28→19:11)
[2022-10-11] MEDS: JEVITY 1.2 1000 ML LIQUID GT PRN (04:45)
[2022-10-11] MEDS: PANTOPRAZOLE ORAL SUSPENSION 40 MG SUSPDR.PKT GT SCH (05:39)
[2022-10-11] MEDS: METOPROLOL TARTRATE 75 MG GT SCH ×2 (08:43→20:52)
[2022-10-11] MEDS: levETIRAcetam 500 MG/5 ML LIQUID UDC GT SCH ×2 (08:43→20:49)
[2022-10-11] MEDS: CLOPIDOGREL 75 MG TABLET GT SCH (08:43)
[2022-10-11] MEDS: ACIDOPHILUS/BULGARICUS CHEW TAB GT SCH ×2 (08:43→20:48)
[2022-10-11] MEDS: ASCORBIC ACID 500 MG TABLET GT SCH (08:44)
[2022-10-11] MEDS: NYSTATIN CREAM 30 GM TUBE TOP SCH ×2 (08:44→20:55)
[2022-10-11] MEDS: TRIAMCINOLONE ACET 0.1% CREAM 15 GM TUBE TOP SCH ×2 (08:44→20:55)
[2022-10-11] MEDS: REMEDY ESSENTIAL ZINC PASTE 113 GM TP SCH ×4 (08:45→20:57)
[2022-10-11] MEDS: NEOMY/BACITRA/POLYMYXIN B OINT UD PACKET TP SCH ×2 (08:45→20:56)
[2022-10-11] MEDS: HYDROGEN PEROXIDE 3% 118 ML BOTTLE TP SCH ×2 (09:54→21:08)
[2022-10-11] MEDS: ENOXAPARIN SODIUM 40 MG/0.4 ML DISP.SYRIN SQ SCH (20:59)
[2022-10-12] VITALS (10 sets, daily range): TEMP 98.7–98.8; O2SAT 97–99
[2022-10-12] MEDS: ALBUTEROL SULFATE 2.5 MG/3 ML NEBU NEB SCH ×4 (02:04→19:50)
[2022-10-12] MEDS: IPRATROPIUM BROMIDE 0.5 MG/2.5 ML NEBU NEB SCH ×4 (02:04→19:50)
[2022-10-12] MEDS: PANTOPRAZOLE ORAL SUSPENSION 40 MG SUSPDR.PKT GT SCH (06:09)
[2022-10-12] MEDS: levETIRAcetam 500 MG/5 ML LIQUID UDC GT SCH ×2 (08:48→20:40)
[2022-10-12] MEDS: ACIDOPHILUS/BULGARICUS CHEW TAB GT SCH ×2 (08:48→20:40)
[2022-10-12] MEDS: TRIAMCINOLONE ACET 0.1% CREAM 15 GM TUBE TOP SCH ×2 (08:50→20:42)
[2022-10-12] MEDS: CLOPIDOGREL 75 MG TABLET GT SCH (08:50)
[2022-10-12] MEDS: NEOMY/BACITRA/POLYMYXIN B OINT UD PACKET TP SCH ×2 (08:50→20:42)
[2022-10-12] MEDS: REMEDY ESSENTIAL ZINC PASTE 113 GM TP SCH ×4 (08:50→20:42)
[2022-10-12] MEDS: NYSTATIN CREAM 30 GM TUBE TOP SCH ×2 (08:50→20:42)
[2022-10-12] MEDS: HYDROGEN PEROXIDE 3% 118 ML BOTTLE TP SCH ×2 (08:50→21:48)
[2022-10-12] MEDS: ASCORBIC ACID 500 MG TABLET GT SCH (08:51)
[2022-10-12] MEDS: METOPROLOL TARTRATE 75 MG GT SCH ×2 (08:52→20:40)
[2022-10-12] MEDS: ENOXAPARIN SODIUM 40 MG/0.4 ML DISP.SYRIN SQ SCH (20:42)
[2022-10-13] VITALS (10 sets, daily range): TEMP 97.8–98.5; O2SAT 97–99
[2022-10-13] MEDS: IPRATROPIUM BROMIDE 0.5 MG/2.5 ML NEBU NEB SCH ×4 (01:28→19:30)
[2022-10-13] MEDS: ALBUTEROL SULFATE 2.5 MG/3 ML NEBU NEB SCH ×4 (01:28→19:30)
[2022-10-13] MEDS: JEVITY 1.2 1000 ML LIQUID GT PRN (02:00)
[2022-10-13] MEDS: PANTOPRAZOLE ORAL SUSPENSION 40 MG SUSPDR.PKT GT SCH (06:55)
[2022-10-13] MEDS: ACIDOPHILUS/BULGARICUS CHEW TAB GT SCH ×2 (09:28→21:00)
[2022-10-13] MEDS: METOPROLOL TARTRATE 75 MG GT SCH ×2 (09:29→21:00)
[2022-10-13] MEDS: levETIRAcetam 500 MG/5 ML LIQUID UDC GT SCH ×2 (09:29→21:00)
[2022-10-13] MEDS: NEOMY/BACITRA/POLYMYXIN B OINT UD PACKET TP SCH ×2 (09:30→21:00)
[2022-10-13] MEDS: ASCORBIC ACID 500 MG TABLET GT SCH (09:30)
[2022-10-13] MEDS: CLOPIDOGREL 75 MG TABLET GT SCH (09:30)
[2022-10-13] MEDS: REMEDY ESSENTIAL ZINC PASTE 113 GM TP SCH ×4 (09:30→21:00)
[2022-10-13] MEDS: TRIAMCINOLONE ACET 0.1% CREAM 15 GM TUBE TOP SCH ×2 (09:30→21:00)
[2022-10-13] MEDS: NYSTATIN CREAM 30 GM TUBE TOP SCH ×2 (09:30→21:00)
[2022-10-13] MEDS: HYDROGEN PEROXIDE 3% 118 ML BOTTLE TP SCH ×2 (10:20→21:23)
[2022-10-13] MEDS: ENOXAPARIN SODIUM 40 MG/0.4 ML DISP.SYRIN SQ SCH (21:00)
[2022-10-14] VITALS (10 sets, daily range): TEMP 97.4–99; O2SAT 97–99
[2022-10-14] MEDS: ALBUTEROL SULFATE 2.5 MG/3 ML NEBU NEB SCH ×4 (01:42→19:08)
[2022-10-14] MEDS: IPRATROPIUM BROMIDE 0.5 MG/2.5 ML NEBU NEB SCH ×4 (01:42→19:08)
[2022-10-14] MEDS: PANTOPRAZOLE ORAL SUSPENSION 40 MG SUSPDR.PKT GT SCH (06:08)
[2022-10-14] MEDS: HYDROGEN PEROXIDE 3% 118 ML BOTTLE TP SCH ×2 (08:40→19:08)
[2022-10-14] MEDS: NYSTATIN CREAM 30 GM TUBE TOP SCH ×2 (09:00→20:42)
[2022-10-14] MEDS: TRIAMCINOLONE ACET 0.1% CREAM 15 GM TUBE TOP SCH ×2 (09:00→20:42)
[2022-10-14] MEDS: levETIRAcetam 500 MG/5 ML LIQUID UDC GT SCH ×2 (09:00→20:38)
[2022-10-14] MEDS: ASCORBIC ACID 500 MG TABLET GT SCH (09:00)
[2022-10-14] MEDS: CLOPIDOGREL 75 MG TABLET GT SCH (09:00)
[2022-10-14] MEDS: NEOMY/BACITRA/POLYMYXIN B OINT UD PACKET TP SCH ×2 (09:00→20:42)
[2022-10-14] MEDS: ACIDOPHILUS/BULGARICUS CHEW TAB GT SCH ×2 (09:00→21:00)
[2022-10-14] MEDS: REMEDY ESSENTIAL ZINC PASTE 113 GM TP SCH ×4 (09:00→20:42)
[2022-10-14] MEDS: METOPROLOL TARTRATE 75 MG GT SCH ×2 (09:00→20:39)
[2022-10-14] MEDS: JEVITY 1.2 1000 ML LIQUID GT PRN (17:16)
[2022-10-14] MEDS: ENOXAPARIN SODIUM 40 MG/0.4 ML DISP.SYRIN SQ SCH (20:41)
[2022-10-15] VITALS (10 sets, daily range): TEMP 97.7–98; O2SAT 97–99
[2022-10-15] MEDS: IPRATROPIUM BROMIDE 0.5 MG/2.5 ML NEBU NEB SCH ×4 (01:36→20:25)
[2022-10-15] MEDS: ALBUTEROL SULFATE 2.5 MG/3 ML NEBU NEB SCH ×4 (01:36→20:25)
[2022-10-15] MEDS: PANTOPRAZOLE ORAL SUSPENSION 40 MG SUSPDR.PKT GT SCH (05:38)
[2022-10-15] MEDS: HYDROGEN PEROXIDE 3% 118 ML BOTTLE TP SCH ×2 (08:07→21:20)
[2022-10-15] MEDS: ACIDOPHILUS/BULGARICUS CHEW TAB GT SCH ×2 (09:18→21:08)
[2022-10-15] MEDS: levETIRAcetam 500 MG/5 ML LIQUID UDC GT SCH ×2 (09:18→21:08)
[2022-10-15] MEDS: REMEDY ESSENTIAL ZINC PASTE 113 GM TP SCH ×4 (09:19→21:09)
[2022-10-15] MEDS: TRIAMCINOLONE ACET 0.1% CREAM 15 GM TUBE TOP SCH ×2 (09:19→21:08)
[2022-10-15] MEDS: CLOPIDOGREL 75 MG TABLET GT SCH (09:19)
[2022-10-15] MEDS: METOPROLOL TARTRATE 75 MG GT SCH ×2 (09:19→21:08)
[2022-10-15] MEDS: ASCORBIC ACID 500 MG TABLET GT SCH (09:19)
[2022-10-15] MEDS: NYSTATIN CREAM 30 GM TUBE TOP SCH ×2 (09:19→21:08)
[2022-10-15] MEDS: JEVITY 1.2 1000 ML LIQUID GT PRN (16:12)
[2022-10-15] MEDS: ENOXAPARIN SODIUM 40 MG/0.4 ML DISP.SYRIN SQ SCH (21:00)
[2022-10-16] VITALS (10 sets, daily range): TEMP 98.6–99.2; O2SAT 97–99
[2022-10-16] MEDS: IPRATROPIUM BROMIDE 0.5 MG/2.5 ML NEBU NEB SCH ×4 (02:13→18:40)
[2022-10-16] MEDS: ALBUTEROL SULFATE 2.5 MG/3 ML NEBU NEB SCH ×4 (02:13→18:40)
[2022-10-16] MEDS: PANTOPRAZOLE ORAL SUSPENSION 40 MG SUSPDR.PKT GT SCH (05:50)
[2022-10-16] MEDS: CLOPIDOGREL 75 MG TABLET GT SCH (09:00)
[2022-10-16] MEDS: REMEDY ESSENTIAL ZINC PASTE 113 GM TP SCH ×4 (09:00→21:17)
[2022-10-16] MEDS: METOPROLOL TARTRATE 75 MG GT SCH ×2 (09:00→21:17)
[2022-10-16] MEDS: ACIDOPHILUS/BULGARICUS CHEW TAB GT SCH ×2 (09:00→21:16)
[2022-10-16] MEDS: NYSTATIN CREAM 30 GM TUBE TOP SCH ×2 (09:00→21:17)
[2022-10-16] MEDS: TRIAMCINOLONE ACET 0.1% CREAM 15 GM TUBE TOP SCH ×2 (09:00→21:17)
[2022-10-16] MEDS: levETIRAcetam 500 MG/5 ML LIQUID UDC GT SCH ×2 (09:00→21:16)
[2022-10-16] MEDS: ASCORBIC ACID 500 MG TABLET GT SCH (09:00)
[2022-10-16] MEDS: HYDROGEN PEROXIDE 3% 118 ML BOTTLE TP SCH ×2 (09:00→18:40)
[2022-10-16] MEDS: ENOXAPARIN SODIUM 40 MG/0.4 ML DISP.SYRIN SQ SCH (21:00)
[2022-10-17] VITALS (12 sets, daily range): TEMP 98–98.6; O2SAT 97–99
[2022-10-17] MEDS: IPRATROPIUM BROMIDE 0.5 MG/2.5 ML NEBU NEB SCH ×4 (01:05→20:56)
[2022-10-17] MEDS: ALBUTEROL SULFATE 2.5 MG/3 ML NEBU NEB SCH ×4 (01:06→20:57)
[2022-10-17] MEDS: PANTOPRAZOLE ORAL SUSPENSION 40 MG SUSPDR.PKT GT SCH (05:06)
[2022-10-17] MEDS: HYDROGEN PEROXIDE 3% 118 ML BOTTLE TP SCH ×2 (07:45→22:09)
[2022-10-17] MEDS: NYSTATIN CREAM 30 GM TUBE TOP SCH ×2 (09:00→21:37)
[2022-10-17] MEDS: TRIAMCINOLONE ACET 0.1% CREAM 15 GM TUBE TOP SCH ×2 (09:00→21:37)
[2022-10-17] MEDS: ACIDOPHILUS/BULGARICUS CHEW TAB GT SCH ×2 (09:23→21:37)
[2022-10-17] MEDS: levETIRAcetam 500 MG/5 ML LIQUID UDC GT SCH ×2 (09:24→21:37)
[2022-10-17] MEDS: METOPROLOL TARTRATE 75 MG GT SCH ×2 (09:39→21:37)
[2022-10-17] MEDS: ASCORBIC ACID 500 MG TABLET GT SCH (09:39)
[2022-10-17] MEDS: CLOPIDOGREL 75 MG TABLET GT SCH (09:39)
[2022-10-17] MEDS: REMEDY ESSENTIAL ZINC PASTE 113 GM TP SCH ×4 (09:40→21:38)
[2022-10-17] MEDS: JEVITY 1.2 1000 ML LIQUID GT PRN (12:45)
[2022-10-17] MEDS: ENOXAPARIN SODIUM 40 MG/0.4 ML DISP.SYRIN SQ SCH (21:00)
[2022-10-18] VITALS (14 sets, daily range): TEMP 97.6–98.9; O2SAT 97–99
[2022-10-18] MEDS: IPRATROPIUM BROMIDE 0.5 MG/2.5 ML NEBU NEB SCH ×4 (00:14→19:24)
[2022-10-18] MEDS: JEVITY 1.2 1000 ML LIQUID GT PRN (02:30)
[2022-10-18] MEDS: ALBUTEROL SULFATE 2.5 MG/3 ML NEBU NEB SCH ×4 (03:52→23:28)
[2022-10-18] MEDS: PANTOPRAZOLE ORAL SUSPENSION 40 MG SUSPDR.PKT GT SCH (05:17)
[2022-10-18] MEDS: ACIDOPHILUS/BULGARICUS CHEW TAB GT SCH ×2 (09:33→21:49)
[2022-10-18] MEDS: levETIRAcetam 500 MG/5 ML LIQUID UDC GT SCH ×2 (09:33→21:49)
[2022-10-18] MEDS: CLOPIDOGREL 75 MG TABLET GT SCH (09:34)
[2022-10-18] MEDS: TRIAMCINOLONE ACET 0.1% CREAM 15 GM TUBE TOP SCH ×2 (09:34→21:52)
[2022-10-18] MEDS: ASCORBIC ACID 500 MG TABLET GT SCH (09:34)
[2022-10-18] MEDS: METOPROLOL TARTRATE 75 MG GT SCH ×2 (09:34→21:50)
[2022-10-18] MEDS: NYSTATIN CREAM 30 GM TUBE TOP SCH ×2 (09:35→21:52)
[2022-10-18] MEDS: REMEDY ESSENTIAL ZINC PASTE 113 GM TP SCH ×4 (09:35→21:53)
[2022-10-18] MEDS: HYDROGEN PEROXIDE 3% 118 ML BOTTLE TP SCH ×2 (09:44→21:52)
[2022-10-18] MEDS: ENOXAPARIN SODIUM 40 MG/0.4 ML DISP.SYRIN SQ SCH (21:51)
[2022-10-19] VITALS (12 sets, daily range): TEMP 97.7–98.2; O2SAT 97–99
[2022-10-19] MEDS: IPRATROPIUM BROMIDE 0.5 MG/2.5 ML NEBU NEB SCH ×4 (01:06→19:06)
[2022-10-19] MEDS: ALBUTEROL SULFATE 2.5 MG/3 ML NEBU NEB SCH ×4 (01:07→19:06)
[2022-10-19] MEDS: PANTOPRAZOLE ORAL SUSPENSION 40 MG SUSPDR.PKT GT SCH (06:00)
[2022-10-19] MEDS: HYDROGEN PEROXIDE 3% 118 ML BOTTLE TP SCH ×2 (07:57→21:20)
[2022-10-19] MEDS: METOPROLOL TARTRATE 75 MG GT SCH ×2 (09:00→20:41)
[2022-10-19] MEDS: ACIDOPHILUS/BULGARICUS CHEW TAB GT SCH ×2 (09:34→20:39)
[2022-10-19] MEDS: levETIRAcetam 500 MG/5 ML LIQUID UDC GT SCH ×2 (09:35→20:39)
[2022-10-19] MEDS: CLOPIDOGREL 75 MG TABLET GT SCH (09:48)
[2022-10-19] MEDS: ASCORBIC ACID 500 MG TABLET GT SCH (09:48)
[2022-10-19] MEDS: TRIAMCINOLONE ACET 0.1% CREAM 15 GM TUBE TOP SCH (09:49)
[2022-10-19] MEDS: REMEDY ESSENTIAL ZINC PASTE 113 GM TP SCH ×4 (09:49→20:42)
[2022-10-19] MEDS: NYSTATIN CREAM 30 GM TUBE TOP SCH (09:49)
[2022-10-19] MEDS: JEVITY 1.2 1000 ML LIQUID GT PRN (12:30)
[2022-10-19] MEDS: ENOXAPARIN SODIUM 40 MG/0.4 ML DISP.SYRIN SQ SCH (20:51)
[2022-10-20] VITALS (10 sets, daily range): TEMP 97.6–98; O2SAT 97–99
[2022-10-20] MEDS: IPRATROPIUM BROMIDE 0.5 MG/2.5 ML NEBU NEB SCH ×4 (01:27→19:48)
[2022-10-20] MEDS: ALBUTEROL SULFATE 2.5 MG/3 ML NEBU NEB SCH ×4 (01:27→19:48)
[2022-10-20] MEDS: JEVITY 1.2 1000 ML LIQUID GT PRN ×2 (03:43→22:18)
[2022-10-20] MEDS: PANTOPRAZOLE ORAL SUSPENSION 40 MG SUSPDR.PKT GT SCH (06:00)
[2022-10-20] MEDS: ACIDOPHILUS/BULGARICUS CHEW TAB GT SCH ×2 (09:27→21:00)
[2022-10-20] MEDS: ASCORBIC ACID 500 MG TABLET GT SCH (09:27)
[2022-10-20] MEDS: levETIRAcetam 500 MG/5 ML LIQUID UDC GT SCH ×2 (09:27→21:00)
[2022-10-20] MEDS: CLOPIDOGREL 75 MG TABLET GT SCH (09:27)
[2022-10-20] MEDS: METOPROLOL TARTRATE 75 MG GT SCH ×2 (09:27→21:00)
[2022-10-20] MEDS: REMEDY ESSENTIAL ZINC PASTE 113 GM TP SCH ×4 (09:27→21:00)
[2022-10-20] MEDS: HYDROGEN PEROXIDE 3% 118 ML BOTTLE TP SCH ×2 (09:30→21:00)
[2022-10-20] MEDS: ENOXAPARIN SODIUM 40 MG/0.4 ML DISP.SYRIN SQ SCH (21:00)
[2022-10-21] VITALS (11 sets, daily range): TEMP 98–99.2; O2SAT 97–100
[2022-10-21] MEDS: ALBUTEROL SULFATE 2.5 MG/3 ML NEBU NEB SCH ×4 (01:27→19:24)
[2022-10-21] MEDS: IPRATROPIUM BROMIDE 0.5 MG/2.5 ML NEBU NEB SCH ×4 (01:27→19:24)
[2022-10-21] MEDS: PANTOPRAZOLE ORAL SUSPENSION 40 MG SUSPDR.PKT GT SCH (05:47)
[2022-10-21] MEDS: HYDROGEN PEROXIDE 3% 118 ML BOTTLE TP SCH ×2 (09:21→22:38)
[2022-10-21] MEDS: ACIDOPHILUS/BULGARICUS CHEW TAB GT SCH ×2 (09:23→21:00)
[2022-10-21] MEDS: levETIRAcetam 500 MG/5 ML LIQUID UDC GT SCH ×2 (09:24→21:00)
[2022-10-21] MEDS: REMEDY ESSENTIAL ZINC PASTE 113 GM TP SCH ×4 (09:27→21:00)
[2022-10-21] MEDS: METOPROLOL TARTRATE 75 MG GT SCH ×2 (09:27→21:00)
[2022-10-21] MEDS: CLOPIDOGREL 75 MG TABLET GT SCH (09:27)
[2022-10-21] MEDS: ASCORBIC ACID 500 MG TABLET GT SCH (09:27)
[2022-10-21] MEDS: ENOXAPARIN SODIUM 40 MG/0.4 ML DISP.SYRIN SQ SCH (21:00)
[2022-10-22] VITALS (12 sets, daily range): TEMP 98.1; O2SAT 97–100
[2022-10-22] MEDS: ALBUTEROL SULFATE 2.5 MG/3 ML NEBU NEB SCH ×4 (00:32→19:11)
[2022-10-22] MEDS: IPRATROPIUM BROMIDE 0.5 MG/2.5 ML NEBU NEB SCH ×4 (00:32→22:22)
[2022-10-22] MEDS: PANTOPRAZOLE ORAL SUSPENSION 40 MG SUSPDR.PKT GT SCH (05:33)
[2022-10-22] MEDS: HYDROGEN PEROXIDE 3% 118 ML BOTTLE TP SCH ×2 (07:18→22:22)
[2022-10-22] MEDS: ACIDOPHILUS/BULGARICUS CHEW TAB GT SCH ×2 (09:19→21:49)
[2022-10-22] MEDS: METOPROLOL TARTRATE 75 MG GT SCH ×2 (09:20→21:50)
[2022-10-22] MEDS: levETIRAcetam 500 MG/5 ML LIQUID UDC GT SCH ×2 (09:20→21:49)
[2022-10-22] MEDS: REMEDY ESSENTIAL ZINC PASTE 113 GM TP SCH ×4 (09:21→21:51)
[2022-10-22] MEDS: ASCORBIC ACID 500 MG TABLET GT SCH (09:21)
[2022-10-22] MEDS: CLOPIDOGREL 75 MG TABLET GT SCH (09:21)
[2022-10-22] MEDS: JEVITY 1.2 1000 ML LIQUID GT PRN (09:59)
[2022-10-22] MEDS: ENOXAPARIN SODIUM 40 MG/0.4 ML DISP.SYRIN SQ SCH (21:51)
[2022-10-23] VITALS (11 sets, daily range): TEMP 98.8–98.9; O2SAT 97–100
[2022-10-23] MEDS: JEVITY 1.2 1000 ML LIQUID GT PRN ×2 (01:20→17:55)
[2022-10-23] MEDS: IPRATROPIUM BROMIDE 0.5 MG/2.5 ML NEBU NEB SCH ×4 (01:51→19:22)
[2022-10-23] MEDS: ALBUTEROL SULFATE 2.5 MG/3 ML NEBU NEB SCH ×4 (01:51→19:22)
[2022-10-23] MEDS: PANTOPRAZOLE ORAL SUSPENSION 40 MG SUSPDR.PKT GT SCH (05:18)
[2022-10-23] MEDS: levETIRAcetam 500 MG/5 ML LIQUID UDC GT SCH ×2 (08:26→21:00)
[2022-10-23] MEDS: ACIDOPHILUS/BULGARICUS CHEW TAB GT SCH ×2 (08:26→21:00)
[2022-10-23] MEDS: CLOPIDOGREL 75 MG TABLET GT SCH (08:27)
[2022-10-23] MEDS: ASCORBIC ACID 500 MG TABLET GT SCH (08:27)
[2022-10-23] MEDS: METOPROLOL TARTRATE 75 MG GT SCH ×2 (08:27→21:00)
[2022-10-23] MEDS: REMEDY ESSENTIAL ZINC PASTE 113 GM TP SCH ×4 (08:27→21:00)
[2022-10-23] MEDS: HYDROGEN PEROXIDE 3% 118 ML BOTTLE TP SCH ×2 (09:05→19:22)
[2022-10-23] MEDS: ENOXAPARIN SODIUM 40 MG/0.4 ML DISP.SYRIN SQ SCH (21:00)
[2022-10-24] VITALS (10 sets, daily range): TEMP 97.8–98; O2SAT 97–100
[2022-10-24] MEDS: ALBUTEROL SULFATE 2.5 MG/3 ML NEBU NEB SCH ×4 (01:34→19:31)
[2022-10-24] MEDS: IPRATROPIUM BROMIDE 0.5 MG/2.5 ML NEBU NEB SCH ×4 (01:34→19:31)
[2022-10-24] MEDS: PANTOPRAZOLE ORAL SUSPENSION 40 MG SUSPDR.PKT GT SCH (06:00)
[2022-10-24] MEDS: ACIDOPHILUS/BULGARICUS CHEW TAB GT SCH ×2 (08:37→21:48)
[2022-10-24] MEDS: levETIRAcetam 500 MG/5 ML LIQUID UDC GT SCH ×2 (08:37→21:48)
[2022-10-24] MEDS: METOPROLOL TARTRATE 75 MG GT SCH ×2 (08:38→21:48)
[2022-10-24] MEDS: ASCORBIC ACID 500 MG TABLET GT SCH (08:38)
[2022-10-24] MEDS: CLOPIDOGREL 75 MG TABLET GT SCH (08:38)
[2022-10-24] MEDS: REMEDY ESSENTIAL ZINC PASTE 113 GM TP SCH ×4 (08:38→21:49)
[2022-10-24] MEDS: HYDROGEN PEROXIDE 3% 118 ML BOTTLE TP SCH ×2 (09:40→19:31)
[2022-10-24] MEDS: JEVITY 1.2 1000 ML LIQUID GT PRN (12:41)
[2022-10-24] MEDS: ENOXAPARIN SODIUM 40 MG/0.4 ML DISP.SYRIN SQ SCH (21:00)
[2022-10-24] MEDS: ACETAMINOPHEN 650 MG/20 ML UDC- SA PATIENTS-PAIN ONLY GT PRN (21:50)
[2022-10-25] VITALS (10 sets, daily range): TEMP 97.6–97.9; O2SAT 96–99
[2022-10-25] MEDS: ALBUTEROL SULFATE 2.5 MG/3 ML NEBU NEB SCH ×4 (01:08→19:25)
[2022-10-25] MEDS: IPRATROPIUM BROMIDE 0.5 MG/2.5 ML NEBU NEB SCH ×4 (01:08→19:25)
[2022-10-25] MEDS: JEVITY 1.2 1000 ML LIQUID GT PRN ×2 (03:00→18:29)
[2022-10-25] MEDS: PANTOPRAZOLE ORAL SUSPENSION 40 MG SUSPDR.PKT GT SCH (06:15)
[2022-10-25] MEDS: METOPROLOL TARTRATE 75 MG GT SCH ×2 (08:01→21:14)
[2022-10-25] MEDS: ASCORBIC ACID 500 MG TABLET GT SCH (08:01)
[2022-10-25] MEDS: ACIDOPHILUS/BULGARICUS CHEW TAB GT SCH ×2 (08:01→21:13)
[2022-10-25] MEDS: levETIRAcetam 500 MG/5 ML LIQUID UDC GT SCH ×2 (08:01→21:13)
[2022-10-25] MEDS: CLOPIDOGREL 75 MG TABLET GT SCH (08:01)
[2022-10-25] MEDS: REMEDY ESSENTIAL ZINC PASTE 113 GM TP SCH ×4 (08:01→21:15)
[2022-10-25] MEDS: HYDROGEN PEROXIDE 3% 118 ML BOTTLE TP SCH ×2 (09:20→19:25)
[2022-10-25] MEDS: ENOXAPARIN SODIUM 40 MG/0.4 ML DISP.SYRIN SQ SCH (21:00)
[2022-10-26] VITALS (10 sets, daily range): TEMP 92.3–97.7; O2SAT 99
[2022-10-26] MEDS: ALBUTEROL SULFATE 2.5 MG/3 ML NEBU NEB SCH ×4 (01:47→19:50)
[2022-10-26] MEDS: IPRATROPIUM BROMIDE 0.5 MG/2.5 ML NEBU NEB SCH ×4 (01:47→19:50)
[2022-10-26] MEDS: PANTOPRAZOLE ORAL SUSPENSION 40 MG SUSPDR.PKT GT SCH (05:15)
[2022-10-26] MEDS: CLOPIDOGREL 75 MG TABLET GT SCH (09:09)
[2022-10-26] MEDS: ACIDOPHILUS/BULGARICUS CHEW TAB GT SCH ×2 (09:09→21:22)
[2022-10-26] MEDS: METOPROLOL TARTRATE 75 MG GT SCH ×2 (09:09→21:22)
[2022-10-26] MEDS: ASCORBIC ACID 500 MG TABLET GT SCH (09:09)
[2022-10-26] MEDS: levETIRAcetam 500 MG/5 ML LIQUID UDC GT SCH ×2 (09:09→21:22)
[2022-10-26] MEDS: JEVITY 1.2 1000 ML LIQUID GT PRN (09:10)
[2022-10-26] MEDS: REMEDY ESSENTIAL ZINC PASTE 113 GM TP SCH ×4 (09:10→21:22)
[2022-10-26] MEDS: HYDROGEN PEROXIDE 3% 118 ML BOTTLE TP SCH ×2 (09:59→21:44)
[2022-10-26] MEDS: ENOXAPARIN SODIUM 40 MG/0.4 ML DISP.SYRIN SQ SCH (21:00)
[2022-10-27] VITALS (10 sets, daily range): TEMP 97.5–98.8; O2SAT 98–99
[2022-10-27] MEDS: ALBUTEROL SULFATE 2.5 MG/3 ML NEBU NEB SCH ×4 (01:42→19:14)
[2022-10-27] MEDS: IPRATROPIUM BROMIDE 0.5 MG/2.5 ML NEBU NEB SCH ×4 (01:42→19:14)
[2022-10-27] MEDS: JEVITY 1.2 1000 ML LIQUID GT PRN ×2 (02:23→21:45)
[2022-10-27] MEDS: PANTOPRAZOLE ORAL SUSPENSION 40 MG SUSPDR.PKT GT SCH (05:20)
[2022-10-27] MEDS: METOPROLOL TARTRATE 75 MG GT SCH ×2 (09:00→21:41)
[2022-10-27] MEDS: HYDROGEN PEROXIDE 3% 118 ML BOTTLE TP SCH ×2 (09:05→19:14)
[2022-10-27] MEDS: levETIRAcetam 500 MG/5 ML LIQUID UDC GT SCH ×2 (09:18→21:40)
[2022-10-27] MEDS: ACIDOPHILUS/BULGARICUS CHEW TAB GT SCH ×2 (09:18→21:40)
[2022-10-27] MEDS: CLOPIDOGREL 75 MG TABLET GT SCH (09:19)
[2022-10-27] MEDS: ASCORBIC ACID 500 MG TABLET GT SCH (09:19)
[2022-10-27] MEDS: REMEDY ESSENTIAL ZINC PASTE 113 GM TP SCH ×4 (09:20→21:42)
[2022-10-27] MEDS: ENOXAPARIN SODIUM 40 MG/0.4 ML DISP.SYRIN SQ SCH (21:41)
[2022-10-28] VITALS (10 sets, daily range): TEMP 98.5; O2SAT 98–100
[2022-10-28] MEDS: IPRATROPIUM BROMIDE 0.5 MG/2.5 ML NEBU NEB SCH ×4 (01:28→19:12)
[2022-10-28] MEDS: ALBUTEROL SULFATE 2.5 MG/3 ML NEBU NEB SCH ×4 (01:28→19:12)
[2022-10-28] MEDS: PANTOPRAZOLE ORAL SUSPENSION 40 MG SUSPDR.PKT GT SCH (05:57)
[2022-10-28] MEDS: ACIDOPHILUS/BULGARICUS CHEW TAB GT SCH ×2 (09:23→20:45)
[2022-10-28] MEDS: METOPROLOL TARTRATE 75 MG GT SCH ×2 (09:24→20:47)
[2022-10-28] MEDS: levETIRAcetam 500 MG/5 ML LIQUID UDC GT SCH ×2 (09:24→20:45)
[2022-10-28] MEDS: REMEDY ESSENTIAL ZINC PASTE 113 GM TP SCH ×4 (09:25→20:50)
[2022-10-28] MEDS: ASCORBIC ACID 500 MG TABLET GT SCH (09:25)
[2022-10-28] MEDS: CLOPIDOGREL 75 MG TABLET GT SCH (09:25)
[2022-10-28] MEDS: HYDROGEN PEROXIDE 3% 118 ML BOTTLE TP SCH ×2 (09:47→21:35)
[2022-10-28] MEDS: ENOXAPARIN SODIUM 40 MG/0.4 ML DISP.SYRIN SQ SCH (20:49)
[2022-10-29] VITALS (9 sets, daily range): TEMP 98–98.1; O2SAT 98–100
[2022-10-29] MEDS: IPRATROPIUM BROMIDE 0.5 MG/2.5 ML NEBU NEB SCH ×4 (01:18→19:50)
[2022-10-29] MEDS: ALBUTEROL SULFATE 2.5 MG/3 ML NEBU NEB SCH ×4 (01:18→19:50)
[2022-10-29] MEDS: PANTOPRAZOLE ORAL SUSPENSION 40 MG SUSPDR.PKT GT SCH (05:40)
[2022-10-29] MEDS: HYDROGEN PEROXIDE 3% 118 ML BOTTLE TP SCH ×2 (08:58→21:00)
[2022-10-29] MEDS: CLOPIDOGREL 75 MG TABLET GT SCH (09:00)
[2022-10-29] MEDS: ASCORBIC ACID 500 MG TABLET GT SCH (09:00)
[2022-10-29] MEDS: METOPROLOL TARTRATE 75 MG GT SCH ×2 (09:00→21:00)
[2022-10-29] MEDS: ACIDOPHILUS/BULGARICUS CHEW TAB GT SCH ×2 (09:00→21:00)
[2022-10-29] MEDS: levETIRAcetam 500 MG/5 ML LIQUID UDC GT SCH ×2 (09:00→21:00)
[2022-10-29] MEDS: REMEDY ESSENTIAL ZINC PASTE 113 GM TP SCH ×4 (09:00→21:00)
[2022-10-29] MEDS: ENOXAPARIN SODIUM 40 MG/0.4 ML DISP.SYRIN SQ SCH (21:00)
[2022-10-30] VITALS (11 sets, daily range): TEMP 98.2–98.7; O2SAT 96–100
[2022-10-30] MEDS: JEVITY 1.2 1000 ML LIQUID GT PRN ×2 (01:30→21:31)
[2022-10-30] MEDS: ALBUTEROL SULFATE 2.5 MG/3 ML NEBU NEB SCH ×4 (01:35→23:20)
[2022-10-30] MEDS: IPRATROPIUM BROMIDE 0.5 MG/2.5 ML NEBU NEB SCH ×4 (01:35→23:19)
[2022-10-30] MEDS: PANTOPRAZOLE ORAL SUSPENSION 40 MG SUSPDR.PKT GT SCH (05:41)
[2022-10-30] MEDS: levETIRAcetam 500 MG/5 ML LIQUID UDC GT SCH ×2 (09:31→21:30)
[2022-10-30] MEDS: ACIDOPHILUS/BULGARICUS CHEW TAB GT SCH ×2 (09:31→21:30)
[2022-10-30] MEDS: CLOPIDOGREL 75 MG TABLET GT SCH (09:32)
[2022-10-30] MEDS: METOPROLOL TARTRATE 75 MG GT SCH ×2 (09:32→21:30)
[2022-10-30] MEDS: ASCORBIC ACID 500 MG TABLET GT SCH (09:32)
[2022-10-30] MEDS: REMEDY ESSENTIAL ZINC PASTE 113 GM TP SCH ×4 (09:32→21:30)
[2022-10-30] MEDS: HYDROGEN PEROXIDE 3% 118 ML BOTTLE TP SCH ×2 (09:58→23:20)
[2022-10-30] MEDS: ENOXAPARIN SODIUM 40 MG/0.4 ML DISP.SYRIN SQ SCH (21:00)
[2022-10-31] VITALS (12 sets, daily range): TEMP 97.6–98.4; O2SAT 97–99
[2022-10-31] MEDS: IPRATROPIUM BROMIDE 0.5 MG/2.5 ML NEBU NEB SCH ×4 (01:14→19:27)
[2022-10-31] MEDS: ALBUTEROL SULFATE 2.5 MG/3 ML NEBU NEB SCH ×4 (01:15→19:28)
[2022-10-31] MEDS: PANTOPRAZOLE ORAL SUSPENSION 40 MG SUSPDR.PKT GT SCH (06:13)
[2022-10-31] MEDS: HYDROGEN PEROXIDE 3% 118 ML BOTTLE TP SCH ×2 (08:55→21:37)
[2022-10-31] MEDS: CLOPIDOGREL 75 MG TABLET GT SCH (09:50)
[2022-10-31] MEDS: ACIDOPHILUS/BULGARICUS CHEW TAB GT SCH ×2 (09:50→21:24)
[2022-10-31] MEDS: REMEDY ESSENTIAL ZINC PASTE 113 GM TP SCH ×4 (09:50→21:25)
[2022-10-31] MEDS: ASCORBIC ACID 500 MG TABLET GT SCH (09:50)
[2022-10-31] MEDS: METOPROLOL TARTRATE 75 MG GT SCH ×2 (09:50→21:25)
[2022-10-31] MEDS: levETIRAcetam 500 MG/5 ML LIQUID UDC GT SCH ×2 (09:50→21:24)
[2022-10-31] MEDS: ACETAMINOPHEN 650 MG/20 ML UDC- SA PATIENTS-PAIN ONLY GT PRN (09:51)
[2022-10-31] MEDS: JEVITY 1.2 1000 ML LIQUID GT PRN (13:06)
[2022-10-31] MEDS: ENOXAPARIN SODIUM 40 MG/0.4 ML DISP.SYRIN SQ SCH (21:56)
[2022-11-01] VITALS (12 sets, daily range): TEMP 98.8–99; O2SAT 97–99
[2022-11-01] MEDS: IPRATROPIUM BROMIDE 0.5 MG/2.5 ML NEBU NEB SCH ×4 (00:15→19:36)
[2022-11-01] MEDS: ALBUTEROL SULFATE 2.5 MG/3 ML NEBU NEB SCH ×4 (00:15→19:37)
[2022-11-01] MEDS: PANTOPRAZOLE ORAL SUSPENSION 40 MG SUSPDR.PKT GT SCH (06:00)
[2022-11-01] MEDS: HYDROGEN PEROXIDE 3% 118 ML BOTTLE TP SCH ×2 (07:41→21:57)
[2022-11-01] MEDS: REMEDY ESSENTIAL ZINC PASTE 113 GM TP SCH ×4 (09:00→21:22)
[2022-11-01] MEDS: METOPROLOL TARTRATE 75 MG GT SCH ×2 (09:00→21:21)
[2022-11-01] MEDS: levETIRAcetam 500 MG/5 ML LIQUID UDC GT SCH ×2 (09:00→21:21)
[2022-11-01] MEDS: ASCORBIC ACID 500 MG TABLET GT SCH (09:00)
[2022-11-01] MEDS: CLOPIDOGREL 75 MG TABLET GT SCH (09:00)
[2022-11-01] MEDS: ACIDOPHILUS/BULGARICUS CHEW TAB GT SCH ×2 (09:00→21:21)
[2022-11-01] MEDS: ENOXAPARIN SODIUM 40 MG/0.4 ML DISP.SYRIN SQ SCH (21:22)
[2022-11-02] VITALS (12 sets, daily range): TEMP 98.5–99; O2SAT 97–99
[2022-11-02] MEDS: ALBUTEROL SULFATE 2.5 MG/3 ML NEBU NEB SCH ×4 (00:21→19:45)
[2022-11-02] MEDS: IPRATROPIUM BROMIDE 0.5 MG/2.5 ML NEBU NEB SCH ×4 (00:21→19:45)
[2022-11-02] MEDS: JEVITY 1.2 1000 ML LIQUID GT PRN ×2 (01:39→22:03)
[2022-11-02] MEDS: PANTOPRAZOLE ORAL SUSPENSION 40 MG SUSPDR.PKT GT SCH (05:25)
[2022-11-02] MEDS: ACIDOPHILUS/BULGARICUS CHEW TAB GT SCH ×2 (09:03→20:54)
[2022-11-02] MEDS: levETIRAcetam 500 MG/5 ML LIQUID UDC GT SCH ×2 (09:03→20:54)
[2022-11-02] MEDS: METOPROLOL TARTRATE 75 MG GT SCH ×2 (09:04→20:55)
[2022-11-02] MEDS: ASCORBIC ACID 500 MG TABLET GT SCH (09:05)
[2022-11-02] MEDS: HYDROGEN PEROXIDE 3% 118 ML BOTTLE TP SCH ×2 (09:05→21:55)
[2022-11-02] MEDS: REMEDY ESSENTIAL ZINC PASTE 113 GM TP SCH ×4 (09:05→20:57)
[2022-11-02] MEDS: CLOPIDOGREL 75 MG TABLET GT SCH (09:07)
[2022-11-02] MEDS: ENOXAPARIN SODIUM 40 MG/0.4 ML DISP.SYRIN SQ SCH (20:57)
[2022-11-03] VITALS (10 sets, daily range): TEMP 98.3–98.7; O2SAT 98–99
[2022-11-03] MEDS: ALBUTEROL SULFATE 2.5 MG/3 ML NEBU NEB SCH ×4 (02:00→19:16)
[2022-11-03] MEDS: IPRATROPIUM BROMIDE 0.5 MG/2.5 ML NEBU NEB SCH ×4 (02:00→19:16)
[2022-11-03] MEDS: PANTOPRAZOLE ORAL SUSPENSION 40 MG SUSPDR.PKT GT SCH (06:03)
[2022-11-03] MEDS: HYDROGEN PEROXIDE 3% 118 ML BOTTLE TP SCH ×2 (07:55→19:16)
[2022-11-03] MEDS: ACIDOPHILUS/BULGARICUS CHEW TAB GT SCH ×2 (09:26→21:12)
[2022-11-03] MEDS: METOPROLOL TARTRATE 75 MG GT SCH ×2 (09:27→21:12)
[2022-11-03] MEDS: levETIRAcetam 500 MG/5 ML LIQUID UDC GT SCH ×2 (09:27→21:12)
[2022-11-03] MEDS: CLOPIDOGREL 75 MG TABLET GT SCH (09:27)
[2022-11-03] MEDS: ASCORBIC ACID 500 MG TABLET GT SCH (09:27)
[2022-11-03] MEDS: REMEDY ESSENTIAL ZINC PASTE 113 GM TP SCH ×4 (09:28→21:13)
[2022-11-03] MEDS: JEVITY 1.2 1000 ML LIQUID GT PRN (14:50)
[2022-11-03] MEDS: ENOXAPARIN SODIUM 40 MG/0.4 ML DISP.SYRIN SQ SCH (21:12)
[2022-11-04] VITALS (11 sets, daily range): TEMP 98–98.5; O2SAT 98–99
[2022-11-04] MEDS: IPRATROPIUM BROMIDE 0.5 MG/2.5 ML NEBU NEB SCH ×4 (01:08→19:29)
[2022-11-04] MEDS: ALBUTEROL SULFATE 2.5 MG/3 ML NEBU NEB SCH ×4 (01:08→19:29)
[2022-11-04] MEDS: PANTOPRAZOLE ORAL SUSPENSION 40 MG SUSPDR.PKT GT SCH (05:41)
[2022-11-04] MEDS: HYDROGEN PEROXIDE 3% 118 ML BOTTLE TP SCH ×2 (08:47→21:33)
[2022-11-04] MEDS: CLOPIDOGREL 75 MG TABLET GT SCH (09:03)
[2022-11-04] MEDS: ASCORBIC ACID 500 MG TABLET GT SCH (09:03)
[2022-11-04] MEDS: METOPROLOL TARTRATE 75 MG GT SCH ×2 (09:03→20:53)
[2022-11-04] MEDS: levETIRAcetam 500 MG/5 ML LIQUID UDC GT SCH ×2 (09:03→20:45)
[2022-11-04] MEDS: ACIDOPHILUS/BULGARICUS CHEW TAB GT SCH ×2 (09:03→20:45)
[2022-11-04] MEDS: REMEDY ESSENTIAL ZINC PASTE 113 GM TP SCH ×4 (09:03→20:55)
[2022-11-04] MEDS: ENOXAPARIN SODIUM 40 MG/0.4 ML DISP.SYRIN SQ SCH (20:54)
[2022-11-05] VITALS (12 sets, daily range): BP systolic 96; BP diastolic 62; TEMP 98.2; O2SAT 98–99
[2022-11-05] MEDS: JEVITY 1.2 1000 ML LIQUID GT PRN ×2 (01:18→20:55)
[2022-11-05] MEDS: ALBUTEROL SULFATE 2.5 MG/3 ML NEBU NEB SCH ×4 (02:07→20:52)
[2022-11-05] MEDS: IPRATROPIUM BROMIDE 0.5 MG/2.5 ML NEBU NEB SCH ×4 (02:07→20:52)
[2022-11-05] MEDS: PANTOPRAZOLE ORAL SUSPENSION 40 MG SUSPDR.PKT GT SCH (06:01)
[2022-11-05] MEDS: HYDROGEN PEROXIDE 3% 118 ML BOTTLE TP SCH ×2 (07:29→21:00)
[2022-11-05] MEDS: ACIDOPHILUS/BULGARICUS CHEW TAB GT SCH ×2 (09:36→20:48)
[2022-11-05] MEDS: levETIRAcetam 500 MG/5 ML LIQUID UDC GT SCH ×2 (09:38→20:48)
[2022-11-05] MEDS: METOPROLOL TARTRATE 75 MG GT SCH ×2 (09:41→20:48)
[2022-11-05] MEDS: CLOPIDOGREL 75 MG TABLET GT SCH (09:41)
[2022-11-05] MEDS: ASCORBIC ACID 500 MG TABLET GT SCH (09:41)
[2022-11-05] MEDS: REMEDY ESSENTIAL ZINC PASTE 113 GM TP SCH ×4 (09:42→20:49)
[2022-11-05] MEDS: ENOXAPARIN SODIUM 40 MG/0.4 ML DISP.SYRIN SQ SCH (20:49)
[2022-11-06] VITALS (11 sets, daily range): TEMP 98.3; O2SAT 98–99
[2022-11-06] MEDS: IPRATROPIUM BROMIDE 0.5 MG/2.5 ML NEBU NEB SCH ×4 (01:41→19:05)
[2022-11-06] MEDS: ALBUTEROL SULFATE 2.5 MG/3 ML NEBU NEB SCH ×4 (01:41→19:05)
[2022-11-06] MEDS: PANTOPRAZOLE ORAL SUSPENSION 40 MG SUSPDR.PKT GT SCH (06:30)
[2022-11-06] MEDS: HYDROGEN PEROXIDE 3% 118 ML BOTTLE TP SCH ×2 (08:24→19:05)
[2022-11-06] MEDS: METOPROLOL TARTRATE 75 MG GT SCH ×2 (10:00→21:40)
[2022-11-06] MEDS: ASCORBIC ACID 500 MG TABLET GT SCH (10:00)
[2022-11-06] MEDS: REMEDY ESSENTIAL ZINC PASTE 113 GM TP SCH ×4 (10:00→21:42)
[2022-11-06] MEDS: levETIRAcetam 500 MG/5 ML LIQUID UDC GT SCH ×2 (10:00→21:39)
[2022-11-06] MEDS: ACIDOPHILUS/BULGARICUS CHEW TAB GT SCH ×2 (10:00→21:39)
[2022-11-06] MEDS: CLOPIDOGREL 75 MG TABLET GT SCH (10:00)
[2022-11-06] MEDS: ENOXAPARIN SODIUM 40 MG/0.4 ML DISP.SYRIN SQ SCH (21:52)
[2022-11-07] VITALS (10 sets, daily range): TEMP 97.3–97.4; O2SAT 97–99
[2022-11-07] MEDS: IPRATROPIUM BROMIDE 0.5 MG/2.5 ML NEBU NEB SCH ×4 (01:04→19:17)
[2022-11-07] MEDS: ALBUTEROL SULFATE 2.5 MG/3 ML NEBU NEB SCH ×4 (01:04→19:17)
[2022-11-07] MEDS: PANTOPRAZOLE ORAL SUSPENSION 40 MG SUSPDR.PKT GT SCH (05:33)
[2022-11-07] MEDS: levETIRAcetam 500 MG/5 ML LIQUID UDC GT SCH ×2 (09:22→21:51)
[2022-11-07] MEDS: ACIDOPHILUS/BULGARICUS CHEW TAB GT SCH ×2 (09:22→21:51)
[2022-11-07] MEDS: CLOPIDOGREL 75 MG TABLET GT SCH (09:23)
[2022-11-07] MEDS: METOPROLOL TARTRATE 75 MG GT SCH ×2 (09:23→21:52)
[2022-11-07] MEDS: ASCORBIC ACID 500 MG TABLET GT SCH (09:23)
[2022-11-07] MEDS: REMEDY ESSENTIAL ZINC PASTE 113 GM TP SCH ×4 (09:23→21:54)
[2022-11-07] MEDS: HYDROGEN PEROXIDE 3% 118 ML BOTTLE TP SCH ×2 (10:10→19:17)
[2022-11-07] MEDS: JEVITY 1.2 1000 ML LIQUID GT PRN (10:25)
[2022-11-07] MEDS: ENOXAPARIN SODIUM 40 MG/0.4 ML DISP.SYRIN SQ SCH (22:12)
[2022-11-08] VITALS (9 sets, daily range): TEMP 98.1–98.5; O2SAT 97–99
[2022-11-08] MEDS: ALBUTEROL SULFATE 2.5 MG/3 ML NEBU NEB SCH ×4 (01:20→20:00)
[2022-11-08] MEDS: IPRATROPIUM BROMIDE 0.5 MG/2.5 ML NEBU NEB SCH ×4 (01:20→20:00)
[2022-11-08] MEDS: PANTOPRAZOLE ORAL SUSPENSION 40 MG SUSPDR.PKT GT SCH (05:44)
[2022-11-08] MEDS: JEVITY 1.2 1000 ML LIQUID GT PRN (07:29)
[2022-11-08] MEDS: METOPROLOL TARTRATE 75 MG GT SCH ×2 (09:00→21:08)
[2022-11-08] MEDS: ASCORBIC ACID 500 MG TABLET GT SCH (09:00)
[2022-11-08] MEDS: HYDROGEN PEROXIDE 3% 118 ML BOTTLE TP SCH ×2 (09:00→21:01)
[2022-11-08] MEDS: REMEDY ESSENTIAL ZINC PASTE 113 GM TP SCH ×4 (09:00→21:09)
[2022-11-08] MEDS: CLOPIDOGREL 75 MG TABLET GT SCH (09:00)
[2022-11-08] MEDS: levETIRAcetam 500 MG/5 ML LIQUID UDC GT SCH ×2 (09:00→21:08)
[2022-11-08] MEDS: ACIDOPHILUS/BULGARICUS CHEW TAB GT SCH ×2 (09:00→21:08)
[2022-11-08] MEDS: ENOXAPARIN SODIUM 40 MG/0.4 ML DISP.SYRIN SQ SCH (21:14)
[2022-11-09] VITALS (10 sets, daily range): TEMP 98.8–99.4; O2SAT 99
[2022-11-09] MEDS: IPRATROPIUM BROMIDE 0.5 MG/2.5 ML NEBU NEB SCH ×4 (01:12→19:30)
[2022-11-09] MEDS: ALBUTEROL SULFATE 2.5 MG/3 ML NEBU NEB SCH ×4 (01:12→19:30)
[2022-11-09] MEDS: PANTOPRAZOLE ORAL SUSPENSION 40 MG SUSPDR.PKT GT SCH (06:18)
[2022-11-09] MEDS: HYDROGEN PEROXIDE 3% 118 ML BOTTLE TP SCH ×2 (09:06→21:00)
[2022-11-09] MEDS: REMEDY ESSENTIAL ZINC PASTE 113 GM TP SCH ×4 (09:59→21:16)
[2022-11-09] MEDS: levETIRAcetam 500 MG/5 ML LIQUID UDC GT SCH ×2 (09:59→21:15)
[2022-11-09] MEDS: ACIDOPHILUS/BULGARICUS CHEW TAB GT SCH ×2 (09:59→21:03)
[2022-11-09] MEDS: ASCORBIC ACID 500 MG TABLET GT SCH (09:59)
[2022-11-09] MEDS: CLOPIDOGREL 75 MG TABLET GT SCH (09:59)
[2022-11-09] MEDS: METOPROLOL TARTRATE 75 MG GT SCH ×2 (10:00→21:16)
[2022-11-09] MEDS: JEVITY 1.2 1000 ML LIQUID GT PRN (13:25)
[2022-11-09] MEDS: ENOXAPARIN SODIUM 40 MG/0.4 ML DISP.SYRIN SQ SCH (21:16)
[2022-11-09] MEDS: COLLAGENASE OINT 30 GM TUBE TP SCH (21:17)
[2022-11-10] VITALS (10 sets, daily range): TEMP 98.3–98.7; O2SAT 98–99
[2022-11-10] MEDS: IPRATROPIUM BROMIDE 0.5 MG/2.5 ML NEBU NEB SCH ×4 (01:50→20:25)
[2022-11-10] MEDS: ALBUTEROL SULFATE 2.5 MG/3 ML NEBU NEB SCH ×4 (01:50→20:25)
[2022-11-10] MEDS: PANTOPRAZOLE ORAL SUSPENSION 40 MG SUSPDR.PKT GT SCH (05:53)
[2022-11-10] MEDS: JEVITY 1.2 1000 ML LIQUID GT PRN (06:07)
[2022-11-10] MEDS: HYDROGEN PEROXIDE 3% 118 ML BOTTLE TP SCH ×2 (07:45→21:00)
[2022-11-10] MEDS: REMEDY ESSENTIAL ZINC PASTE 113 GM TP SCH ×4 (09:00→21:21)
[2022-11-10] MEDS: CLOPIDOGREL 75 MG TABLET GT SCH (09:00)
[2022-11-10] MEDS: COLLAGENASE OINT 30 GM TUBE TP SCH ×2 (09:00→21:00)
[2022-11-10] MEDS: METOPROLOL TARTRATE 75 MG GT SCH ×2 (09:00→21:18)
[2022-11-10] MEDS: ASCORBIC ACID 500 MG TABLET GT SCH (09:00)
[2022-11-10] MEDS: ACIDOPHILUS/BULGARICUS CHEW TAB GT SCH ×2 (09:00→21:16)
[2022-11-10] MEDS: levETIRAcetam 500 MG/5 ML LIQUID UDC GT SCH ×2 (09:00→21:18)
[2022-11-10] MEDS: ENOXAPARIN SODIUM 40 MG/0.4 ML DISP.SYRIN SQ SCH (21:00)
[2022-11-11] VITALS (10 sets, daily range): TEMP 97.6–99.1; O2SAT 96–99
[2022-11-11] MEDS: ALBUTEROL SULFATE 2.5 MG/3 ML NEBU NEB SCH ×4 (01:46→19:21)
[2022-11-11] MEDS: IPRATROPIUM BROMIDE 0.5 MG/2.5 ML NEBU NEB SCH ×4 (01:46→19:21)
[2022-11-11] MEDS: JEVITY 1.2 1000 ML LIQUID GT PRN (01:56)
[2022-11-11] MEDS: PANTOPRAZOLE ORAL SUSPENSION 40 MG SUSPDR.PKT GT SCH (05:35)
[2022-11-11] MEDS: HYDROGEN PEROXIDE 3% 118 ML BOTTLE TP SCH ×2 (08:36→19:21)
[2022-11-11] MEDS: ACIDOPHILUS/BULGARICUS CHEW TAB GT SCH ×2 (09:10→20:24)
[2022-11-11] MEDS: levETIRAcetam 500 MG/5 ML LIQUID UDC GT SCH ×2 (09:10→20:25)
[2022-11-11] MEDS: METOPROLOL TARTRATE 75 MG GT SCH ×2 (09:13→20:26)
[2022-11-11] MEDS: CLOPIDOGREL 75 MG TABLET GT SCH (09:13)
[2022-11-11] MEDS: REMEDY ESSENTIAL ZINC PASTE 113 GM TP SCH ×4 (09:14→20:27)
[2022-11-11] MEDS: ASCORBIC ACID 500 MG TABLET GT SCH (09:14)
[2022-11-11] MEDS: COLLAGENASE OINT 30 GM TUBE TP SCH ×2 (09:14→20:28)
[2022-11-11] MEDS: ENOXAPARIN SODIUM 40 MG/0.4 ML DISP.SYRIN SQ SCH (20:27)
[2022-11-12] VITALS (10 sets, daily range): TEMP 98.4; O2SAT 97–99
[2022-11-12] MEDS: IPRATROPIUM BROMIDE 0.5 MG/2.5 ML NEBU NEB SCH ×4 (01:26→19:40)
[2022-11-12] MEDS: ALBUTEROL SULFATE 2.5 MG/3 ML NEBU NEB SCH ×4 (01:26→19:40)
[2022-11-12] MEDS: JEVITY 1.2 1000 ML LIQUID GT PRN ×2 (01:30→18:22)
[2022-11-12] MEDS: PANTOPRAZOLE ORAL SUSPENSION 40 MG SUSPDR.PKT GT SCH (06:28)
[2022-11-12] MEDS: HYDROGEN PEROXIDE 3% 118 ML BOTTLE TP SCH ×2 (07:26→21:00)
[2022-11-12] MEDS: ACIDOPHILUS/BULGARICUS CHEW TAB GT SCH ×2 (08:25→21:00)
[2022-11-12] MEDS: levETIRAcetam 500 MG/5 ML LIQUID UDC GT SCH ×2 (08:27→21:00)
[2022-11-12] MEDS: METOPROLOL TARTRATE 75 MG GT SCH ×2 (08:28→21:00)
[2022-11-12] MEDS: CLOPIDOGREL 75 MG TABLET GT SCH (08:28)
[2022-11-12] MEDS: ASCORBIC ACID 500 MG TABLET GT SCH (08:28)
[2022-11-12] MEDS: REMEDY ESSENTIAL ZINC PASTE 113 GM TP SCH ×4 (08:29→21:00)
[2022-11-12] MEDS: MEDIHONEY= THERAHONEY 1.5 OZ TUBE TOP SCH ×4 (11:00→21:00)
[2022-11-12] MEDS: ENOXAPARIN SODIUM 40 MG/0.4 ML DISP.SYRIN SQ SCH (21:00)
[2022-11-13] VITALS (10 sets, daily range): TEMP 97.5–98.1; O2SAT 97–99
[2022-11-13] MEDS: IPRATROPIUM BROMIDE 0.5 MG/2.5 ML NEBU NEB SCH ×4 (01:26→19:33)
[2022-11-13] MEDS: ALBUTEROL SULFATE 2.5 MG/3 ML NEBU NEB SCH ×4 (01:26→19:33)
[2022-11-13] MEDS: PANTOPRAZOLE ORAL SUSPENSION 40 MG SUSPDR.PKT GT SCH (05:41)
[2022-11-13] MEDS: HYDROGEN PEROXIDE 3% 118 ML BOTTLE TP SCH ×2 (07:50→21:06)
[2022-11-13] MEDS: ACIDOPHILUS/BULGARICUS CHEW TAB GT SCH ×2 (09:09→21:01)
[2022-11-13] MEDS: levETIRAcetam 500 MG/5 ML LIQUID UDC GT SCH ×2 (09:09→21:01)
[2022-11-13] MEDS: CLOPIDOGREL 75 MG TABLET GT SCH (09:11)
[2022-11-13] MEDS: METOPROLOL TARTRATE 75 MG GT SCH ×2 (09:11→21:01)
[2022-11-13] MEDS: REMEDY ESSENTIAL ZINC PASTE 113 GM TP SCH ×4 (09:11→21:02)
[2022-11-13] MEDS: ASCORBIC ACID 500 MG TABLET GT SCH (09:11)
[2022-11-13] MEDS: MEDIHONEY= THERAHONEY 1.5 OZ TUBE TOP SCH ×4 (09:11→21:02)
[2022-11-13] MEDS: JEVITY 1.2 1000 ML LIQUID GT PRN (13:23)
[2022-11-13] MEDS: ENOXAPARIN SODIUM 40 MG/0.4 ML DISP.SYRIN SQ SCH (21:00)
[2022-11-14] VITALS (10 sets, daily range): TEMP 98.5–99.5; O2SAT 97–99
[2022-11-14] MEDS: ALBUTEROL SULFATE 2.5 MG/3 ML NEBU NEB SCH ×4 (01:10→19:50)
[2022-11-14] MEDS: IPRATROPIUM BROMIDE 0.5 MG/2.5 ML NEBU NEB SCH ×4 (01:10→19:50)
[2022-11-14] MEDS: PANTOPRAZOLE ORAL SUSPENSION 40 MG SUSPDR.PKT GT SCH (05:40)
[2022-11-14] MEDS: JEVITY 1.2 1000 ML LIQUID GT PRN (05:40)
[2022-11-14] MEDS: HYDROGEN PEROXIDE 3% 118 ML BOTTLE TP SCH ×2 (07:49→21:00)
[2022-11-14] MEDS: ACIDOPHILUS/BULGARICUS CHEW TAB GT SCH ×2 (08:31→21:00)
[2022-11-14] MEDS: levETIRAcetam 500 MG/5 ML LIQUID UDC GT SCH ×2 (08:32→21:00)
[2022-11-14] MEDS: CLOPIDOGREL 75 MG TABLET GT SCH (08:32)
[2022-11-14] MEDS: METOPROLOL TARTRATE 75 MG GT SCH ×2 (08:35→21:00)
[2022-11-14] MEDS: MEDIHONEY= THERAHONEY 1.5 OZ TUBE TOP SCH ×4 (08:35→21:00)
[2022-11-14] MEDS: REMEDY ESSENTIAL ZINC PASTE 113 GM TP SCH ×4 (08:36→21:00)
[2022-11-14] MEDS: ASCORBIC ACID 500 MG TABLET GT SCH (08:38)
[2022-11-14] MEDS: ENOXAPARIN SODIUM 40 MG/0.4 ML DISP.SYRIN SQ SCH (21:00)
[2022-11-15] VITALS (10 sets, daily range): TEMP 98.7–98.8; O2SAT 97–99
[2022-11-15] MEDS: ALBUTEROL SULFATE 2.5 MG/3 ML NEBU NEB SCH ×4 (01:35→19:35)
[2022-11-15] MEDS: IPRATROPIUM BROMIDE 0.5 MG/2.5 ML NEBU NEB SCH ×4 (01:35→19:35)
[2022-11-15] MEDS: PANTOPRAZOLE ORAL SUSPENSION 40 MG SUSPDR.PKT GT SCH (05:09)
[2022-11-15] MEDS: ACIDOPHILUS/BULGARICUS CHEW TAB GT SCH ×2 (08:48→21:03)
[2022-11-15] MEDS: levETIRAcetam 500 MG/5 ML LIQUID UDC GT SCH ×2 (08:48→21:03)
[2022-11-15] MEDS: MEDIHONEY= THERAHONEY 1.5 OZ TUBE TOP SCH ×4 (08:49→21:18)
[2022-11-15] MEDS: METOPROLOL TARTRATE 75 MG GT SCH ×2 (08:49→21:03)
[2022-11-15] MEDS: REMEDY ESSENTIAL ZINC PASTE 113 GM TP SCH ×4 (08:49→21:18)
[2022-11-15] MEDS: ASCORBIC ACID 500 MG TABLET GT SCH (08:49)
[2022-11-15] MEDS: CLOPIDOGREL 75 MG TABLET GT SCH (08:49)
[2022-11-15] MEDS: HYDROGEN PEROXIDE 3% 118 ML BOTTLE TP SCH ×2 (09:00→21:01)
[2022-11-15] MEDS: JEVITY 1.2 1000 ML LIQUID GT PRN (16:17)
[2022-11-15] MEDS: ENOXAPARIN SODIUM 40 MG/0.4 ML DISP.SYRIN SQ SCH (21:00)
[2022-11-16] VITALS (10 sets, daily range): TEMP 98.5–98.8; O2SAT 97–99
[2022-11-16] MEDS: ALBUTEROL SULFATE 2.5 MG/3 ML NEBU NEB SCH ×4 (01:45→19:35)
[2022-11-16] MEDS: IPRATROPIUM BROMIDE 0.5 MG/2.5 ML NEBU NEB SCH ×4 (01:45→19:35)
[2022-11-16] MEDS: PANTOPRAZOLE ORAL SUSPENSION 40 MG SUSPDR.PKT GT SCH (05:59)
[2022-11-16] MEDS: HYDROGEN PEROXIDE 3% 118 ML BOTTLE TP SCH ×2 (07:22→20:41)
[2022-11-16] MEDS: levETIRAcetam 500 MG/5 ML LIQUID UDC GT SCH ×2 (09:50→20:32)
[2022-11-16] MEDS: ACIDOPHILUS/BULGARICUS CHEW TAB GT SCH ×2 (09:50→20:32)
[2022-11-16] MEDS: MEDIHONEY= THERAHONEY 1.5 OZ TUBE TOP SCH ×4 (09:51→20:34)
[2022-11-16] MEDS: METOPROLOL TARTRATE 75 MG GT SCH ×2 (09:51→20:33)
[2022-11-16] MEDS: ASCORBIC ACID 500 MG TABLET GT SCH (09:51)
[2022-11-16] MEDS: CLOPIDOGREL 75 MG TABLET GT SCH (09:51)
[2022-11-16] MEDS: REMEDY ESSENTIAL ZINC PASTE 113 GM TP SCH ×4 (09:52→20:35)
[2022-11-16] MEDS: JEVITY 1.2 1000 ML LIQUID GT PRN (14:06)
[2022-11-16] MEDS: ENOXAPARIN SODIUM 40 MG/0.4 ML DISP.SYRIN SQ SCH (21:00)
[2022-11-17] VITALS (10 sets, daily range): TEMP 97.2–99; O2SAT 97–99
[2022-11-17] MEDS: ALBUTEROL SULFATE 2.5 MG/3 ML NEBU NEB SCH ×4 (02:04→19:18)
[2022-11-17] MEDS: IPRATROPIUM BROMIDE 0.5 MG/2.5 ML NEBU NEB SCH ×4 (02:04→19:18)
[2022-11-17] MEDS: PANTOPRAZOLE ORAL SUSPENSION 40 MG SUSPDR.PKT GT SCH (06:24)
[2022-11-17] MEDS: HYDROGEN PEROXIDE 3% 118 ML BOTTLE TP SCH ×2 (07:25→21:00)
[2022-11-17] MEDS: CLOPIDOGREL 75 MG TABLET GT SCH (08:50)
[2022-11-17] MEDS: METOPROLOL TARTRATE 75 MG GT SCH ×2 (08:50→21:24)
[2022-11-17] MEDS: levETIRAcetam 500 MG/5 ML LIQUID UDC GT SCH ×2 (08:50→21:23)
[2022-11-17] MEDS: ACIDOPHILUS/BULGARICUS CHEW TAB GT SCH ×2 (08:50→21:23)
[2022-11-17] MEDS: ASCORBIC ACID 500 MG TABLET GT SCH (08:51)
[2022-11-17] MEDS: REMEDY ESSENTIAL ZINC PASTE 113 GM TP SCH ×4 (08:51→21:25)
[2022-11-17] MEDS: MEDIHONEY= THERAHONEY 1.5 OZ TUBE TOP SCH ×4 (08:51→21:25)
[2022-11-17] MEDS: JEVITY 1.2 1000 ML LIQUID GT PRN (18:38)
[2022-11-17] MEDS: ENOXAPARIN SODIUM 40 MG/0.4 ML DISP.SYRIN SQ SCH (21:25)
[2022-11-18] VITALS (10 sets, daily range): TEMP 98–98.8; O2SAT 97–99
[2022-11-18] MEDS: ALBUTEROL SULFATE 2.5 MG/3 ML NEBU NEB SCH ×4 (01:29→20:40)
[2022-11-18] MEDS: IPRATROPIUM BROMIDE 0.5 MG/2.5 ML NEBU NEB SCH ×4 (01:29→20:40)
[2022-11-18] MEDS: PANTOPRAZOLE ORAL SUSPENSION 40 MG SUSPDR.PKT GT SCH (06:35)
[2022-11-18] MEDS: HYDROGEN PEROXIDE 3% 118 ML BOTTLE TP SCH ×2 (07:11→20:56)
[2022-11-18] MEDS: ACIDOPHILUS/BULGARICUS CHEW TAB GT SCH ×2 (09:32→21:00)
[2022-11-18] MEDS: levETIRAcetam 500 MG/5 ML LIQUID UDC GT SCH ×2 (09:33→21:00)
[2022-11-18] MEDS: METOPROLOL TARTRATE 75 MG GT SCH ×2 (09:37→21:00)
[2022-11-18] MEDS: ASCORBIC ACID 500 MG TABLET GT SCH (09:38)
[2022-11-18] MEDS: CLOPIDOGREL 75 MG TABLET GT SCH (09:38)
[2022-11-18] MEDS: MEDIHONEY= THERAHONEY 1.5 OZ TUBE TOP SCH ×4 (09:39→21:01)
[2022-11-18] MEDS: REMEDY ESSENTIAL ZINC PASTE 113 GM TP SCH ×4 (09:39→21:01)
[2022-11-18] MEDS: JEVITY 1.2 1000 ML LIQUID GT PRN (11:32)
[2022-11-18] MEDS: ENOXAPARIN SODIUM 40 MG/0.4 ML DISP.SYRIN SQ SCH (22:00)
[2022-11-19] VITALS (10 sets, daily range): TEMP 98.7; O2SAT 96–99
[2022-11-19] MEDS: IPRATROPIUM BROMIDE 0.5 MG/2.5 ML NEBU NEB SCH ×4 (00:36→19:30)
[2022-11-19] MEDS: ALBUTEROL SULFATE 2.5 MG/3 ML NEBU NEB SCH ×4 (00:36→19:30)
[2022-11-19] MEDS: PANTOPRAZOLE ORAL SUSPENSION 40 MG SUSPDR.PKT GT SCH (05:29)
[2022-11-19] MEDS: HYDROGEN PEROXIDE 3% 118 ML BOTTLE TP SCH ×2 (07:40→19:30)
[2022-11-19] MEDS: levETIRAcetam 500 MG/5 ML LIQUID UDC GT SCH ×2 (09:38→21:36)
[2022-11-19] MEDS: METOPROLOL TARTRATE 75 MG GT SCH ×2 (09:38→21:37)
[2022-11-19] MEDS: ASCORBIC ACID 500 MG TABLET GT SCH (09:38)
[2022-11-19] MEDS: ACIDOPHILUS/BULGARICUS CHEW TAB GT SCH ×2 (09:38→21:36)
[2022-11-19] MEDS: CLOPIDOGREL 75 MG TABLET GT SCH (09:38)
[2022-11-19] MEDS: MEDIHONEY= THERAHONEY 1.5 OZ TUBE TOP SCH ×4 (09:38→21:37)
[2022-11-19] MEDS: REMEDY ESSENTIAL ZINC PASTE 113 GM TP SCH ×4 (09:39→21:37)
[2022-11-19] MEDS: JEVITY 1.2 1000 ML LIQUID GT PRN (16:20)
[2022-11-19] MEDS: ENOXAPARIN SODIUM 40 MG/0.4 ML DISP.SYRIN SQ SCH (21:00)
[2022-11-20] VITALS (10 sets, daily range): TEMP 97.9–98.6; O2SAT 96–97
[2022-11-20] MEDS: IPRATROPIUM BROMIDE 0.5 MG/2.5 ML NEBU NEB SCH ×4 (01:45→19:40)
[2022-11-20] MEDS: ALBUTEROL SULFATE 2.5 MG/3 ML NEBU NEB SCH ×4 (01:45→19:40)
[2022-11-20] MEDS: PANTOPRAZOLE ORAL SUSPENSION 40 MG SUSPDR.PKT GT SCH (05:48)
[2022-11-20] MEDS: HYDROGEN PEROXIDE 3% 118 ML BOTTLE TP SCH ×2 (08:00→21:00)
[2022-11-20] MEDS: ACIDOPHILUS/BULGARICUS CHEW TAB GT SCH ×2 (09:24→21:00)
[2022-11-20] MEDS: levETIRAcetam 500 MG/5 ML LIQUID UDC GT SCH ×2 (09:25→21:00)
[2022-11-20] MEDS: METOPROLOL TARTRATE 75 MG GT SCH ×2 (09:30→21:00)
[2022-11-20] MEDS: ASCORBIC ACID 500 MG TABLET GT SCH (09:32)
[2022-11-20] MEDS: CLOPIDOGREL 75 MG TABLET GT SCH (09:32)
[2022-11-20] MEDS: MEDIHONEY= THERAHONEY 1.5 OZ TUBE TOP SCH ×4 (09:33→21:00)
[2022-11-20] MEDS: REMEDY ESSENTIAL ZINC PASTE 113 GM TP SCH ×4 (09:33→21:00)
[2022-11-20] MEDS: JEVITY 1.2 1000 ML LIQUID GT PRN (11:38)
[2022-11-20] MEDS: ENOXAPARIN SODIUM 40 MG/0.4 ML DISP.SYRIN SQ SCH (21:00)
[2022-11-21] VITALS (10 sets, daily range): TEMP 97.6–97.8; O2SAT 96–99
[2022-11-21] MEDS: IPRATROPIUM BROMIDE 0.5 MG/2.5 ML NEBU NEB SCH ×4 (01:43→19:17)
[2022-11-21] MEDS: ALBUTEROL SULFATE 2.5 MG/3 ML NEBU NEB SCH ×4 (01:46→19:17)
[2022-11-21] MEDS: JEVITY 1.2 1000 ML LIQUID GT PRN ×2 (02:00→18:12)
[2022-11-21] MEDS: PANTOPRAZOLE ORAL SUSPENSION 40 MG SUSPDR.PKT GT SCH (05:03)
[2022-11-21] MEDS: HYDROGEN PEROXIDE 3% 118 ML BOTTLE TP SCH ×2 (09:01→19:17)
[2022-11-21] MEDS: ACIDOPHILUS/BULGARICUS CHEW TAB GT SCH ×2 (09:28→20:32)
[2022-11-21] MEDS: levETIRAcetam 500 MG/5 ML LIQUID UDC GT SCH ×2 (09:29→20:32)
[2022-11-21] MEDS: METOPROLOL TARTRATE 75 MG GT SCH ×2 (09:30→20:32)
[2022-11-21] MEDS: ASCORBIC ACID 500 MG TABLET GT SCH (09:35)
[2022-11-21] MEDS: REMEDY ESSENTIAL ZINC PASTE 113 GM TP SCH ×4 (09:35→20:33)
[2022-11-21] MEDS: MEDIHONEY= THERAHONEY 1.5 OZ TUBE TOP SCH ×4 (09:35→20:33)
[2022-11-21] MEDS: CLOPIDOGREL 75 MG TABLET GT SCH (09:35)
[2022-11-21] MEDS: ENOXAPARIN SODIUM 40 MG/0.4 ML DISP.SYRIN SQ SCH (21:41)
[2022-11-22] VITALS (10 sets, daily range): TEMP 98.6; O2SAT 97–99
[2022-11-22] MEDS: IPRATROPIUM BROMIDE 0.5 MG/2.5 ML NEBU NEB SCH ×4 (00:56→20:40)
[2022-11-22] MEDS: ALBUTEROL SULFATE 2.5 MG/3 ML NEBU NEB SCH ×4 (00:56→20:40)
[2022-11-22] MEDS: PANTOPRAZOLE ORAL SUSPENSION 40 MG SUSPDR.PKT GT SCH (05:06)
[2022-11-22] MEDS: ACIDOPHILUS/BULGARICUS CHEW TAB GT SCH ×2 (08:28→21:01)
[2022-11-22] MEDS: levETIRAcetam 500 MG/5 ML LIQUID UDC GT SCH ×2 (08:29→21:01)
[2022-11-22] MEDS: CLOPIDOGREL 75 MG TABLET GT SCH (08:30)
[2022-11-22] MEDS: METOPROLOL TARTRATE 75 MG GT SCH ×2 (08:30→21:02)
[2022-11-22] MEDS: ASCORBIC ACID 500 MG TABLET GT SCH (08:30)
[2022-11-22] MEDS: MEDIHONEY= THERAHONEY 1.5 OZ TUBE TOP SCH ×4 (08:31→21:04)
[2022-11-22] MEDS: REMEDY ESSENTIAL ZINC PASTE 113 GM TP SCH ×4 (08:31→21:05)
[2022-11-22] MEDS: HYDROGEN PEROXIDE 3% 118 ML BOTTLE TP SCH ×2 (09:59→21:00)
[2022-11-22] MEDS: JEVITY 1.2 1000 ML LIQUID GT PRN (12:59)
[2022-11-22] MEDS: ENOXAPARIN SODIUM 40 MG/0.4 ML DISP.SYRIN SQ SCH (21:04)
[2022-11-23] VITALS (10 sets, daily range): TEMP 97.7–98.8; O2SAT 97–99
[2022-11-23] MEDS: ALBUTEROL SULFATE 2.5 MG/3 ML NEBU NEB SCH ×4 (01:40→19:23)
[2022-11-23] MEDS: IPRATROPIUM BROMIDE 0.5 MG/2.5 ML NEBU NEB SCH ×4 (01:40→19:23)
[2022-11-23] MEDS: PANTOPRAZOLE ORAL SUSPENSION 40 MG SUSPDR.PKT GT SCH (06:00)
[2022-11-23] MEDS: HYDROGEN PEROXIDE 3% 118 ML BOTTLE TP SCH ×2 (09:10→19:23)
[2022-11-23] MEDS: ASCORBIC ACID 500 MG TABLET GT SCH (09:52)
[2022-11-23] MEDS: METOPROLOL TARTRATE 75 MG GT SCH ×2 (09:52→20:51)
[2022-11-23] MEDS: levETIRAcetam 500 MG/5 ML LIQUID UDC GT SCH ×2 (09:52→20:49)
[2022-11-23] MEDS: CLOPIDOGREL 75 MG TABLET GT SCH (09:52)
[2022-11-23] MEDS: MEDIHONEY= THERAHONEY 1.5 OZ TUBE TOP SCH ×4 (09:52→20:52)
[2022-11-23] MEDS: ACIDOPHILUS/BULGARICUS CHEW TAB GT SCH ×2 (09:52→20:49)
[2022-11-23] MEDS: REMEDY ESSENTIAL ZINC PASTE 113 GM TP SCH ×4 (09:53→20:52)
[2022-11-23] MEDS: ENOXAPARIN SODIUM 40 MG/0.4 ML DISP.SYRIN SQ SCH (21:00)
[2022-11-24] VITALS (10 sets, daily range): TEMP 98.5–99.1; O2SAT 97–99
[2022-11-24] MEDS: ALBUTEROL SULFATE 2.5 MG/3 ML NEBU NEB SCH ×4 (01:40→19:29)
[2022-11-24] MEDS: IPRATROPIUM BROMIDE 0.5 MG/2.5 ML NEBU NEB SCH ×4 (01:40→19:29)
[2022-11-24] MEDS: PANTOPRAZOLE ORAL SUSPENSION 40 MG SUSPDR.PKT GT SCH (05:11)
[2022-11-24] MEDS: HYDROGEN PEROXIDE 3% 118 ML BOTTLE TP SCH ×2 (08:09→19:29)
[2022-11-24] MEDS: ASCORBIC ACID 500 MG TABLET GT SCH (09:00)
[2022-11-24] MEDS: CLOPIDOGREL 75 MG TABLET GT SCH (09:00)
[2022-11-24] MEDS: REMEDY ESSENTIAL ZINC PASTE 113 GM TP SCH ×4 (09:00→20:49)
[2022-11-24] MEDS: ACIDOPHILUS/BULGARICUS CHEW TAB GT SCH ×2 (09:00→20:46)
[2022-11-24] MEDS: levETIRAcetam 500 MG/5 ML LIQUID UDC GT SCH ×2 (09:00→20:47)
[2022-11-24] MEDS: METOPROLOL TARTRATE 75 MG GT SCH ×2 (09:00→20:48)
[2022-11-24] MEDS: MEDIHONEY= THERAHONEY 1.5 OZ TUBE TOP SCH ×4 (09:00→20:49)
[2022-11-24] MEDS: ENOXAPARIN SODIUM 40 MG/0.4 ML DISP.SYRIN SQ SCH (20:48)
[2022-11-25] VITALS (10 sets, daily range): TEMP 97.6–97.7; O2SAT 97–99
[2022-11-25] MEDS: IPRATROPIUM BROMIDE 0.5 MG/2.5 ML NEBU NEB SCH ×4 (01:56→19:25)
[2022-11-25] MEDS: ALBUTEROL SULFATE 2.5 MG/3 ML NEBU NEB SCH ×4 (01:56→19:25)
[2022-11-25] MEDS: PANTOPRAZOLE ORAL SUSPENSION 40 MG SUSPDR.PKT GT SCH (06:37)
[2022-11-25] MEDS: JEVITY 1.2 1000 ML LIQUID GT PRN (06:37)
[2022-11-25] MEDS: HYDROGEN PEROXIDE 3% 118 ML BOTTLE TP SCH ×2 (09:16→19:25)
[2022-11-25] MEDS: CLOPIDOGREL 75 MG TABLET GT SCH (09:48)
[2022-11-25] MEDS: METOPROLOL TARTRATE 75 MG GT SCH ×2 (09:48→21:00)
[2022-11-25] MEDS: ASCORBIC ACID 500 MG TABLET GT SCH (09:48)
[2022-11-25] MEDS: ACIDOPHILUS/BULGARICUS CHEW TAB GT SCH ×2 (09:48→21:48)
[2022-11-25] MEDS: levETIRAcetam 500 MG/5 ML LIQUID UDC GT SCH ×2 (09:48→21:48)
[2022-11-25] MEDS: MEDIHONEY= THERAHONEY 1.5 OZ TUBE TOP SCH ×4 (09:49→21:50)
[2022-11-25] MEDS: REMEDY ESSENTIAL ZINC PASTE 113 GM TP SCH ×4 (09:49→21:50)
[2022-11-25] MEDS: ENOXAPARIN SODIUM 40 MG/0.4 ML DISP.SYRIN SQ SCH (21:50)
[2022-11-26] VITALS (10 sets, daily range): TEMP 97–97.5; O2SAT 97–99
[2022-11-26] MEDS: IPRATROPIUM BROMIDE 0.5 MG/2.5 ML NEBU NEB SCH ×4 (01:06→19:38)
[2022-11-26] MEDS: ALBUTEROL SULFATE 2.5 MG/3 ML NEBU NEB SCH ×4 (01:06→19:38)
[2022-11-26] MEDS: PANTOPRAZOLE ORAL SUSPENSION 40 MG SUSPDR.PKT GT SCH (06:28)
[2022-11-26] MEDS: HYDROGEN PEROXIDE 3% 118 ML BOTTLE TP SCH ×2 (08:15→21:23)
[2022-11-26] MEDS: ASCORBIC ACID 500 MG TABLET GT SCH (09:00)
[2022-11-26] MEDS: REMEDY ESSENTIAL ZINC PASTE 113 GM TP SCH ×4 (09:00→21:24)
[2022-11-26] MEDS: ACIDOPHILUS/BULGARICUS CHEW TAB GT SCH ×2 (09:00→21:23)
[2022-11-26] MEDS: levETIRAcetam 500 MG/5 ML LIQUID UDC GT SCH ×2 (09:00→21:22)
[2022-11-26] MEDS: MEDIHONEY= THERAHONEY 1.5 OZ TUBE TOP SCH ×4 (09:00→21:23)
[2022-11-26] MEDS: CLOPIDOGREL 75 MG TABLET GT SCH (09:00)
[2022-11-26] MEDS: METOPROLOL TARTRATE 75 MG GT SCH ×2 (09:00→21:21)
[2022-11-26] MEDS: JEVITY 1.2 1000 ML LIQUID GT PRN (18:14)
[2022-11-26] MEDS: ENOXAPARIN SODIUM 40 MG/0.4 ML DISP.SYRIN SQ SCH (21:20)
[2022-11-27] VITALS (11 sets, daily range): TEMP 97.3–98.4; O2SAT 97–99
[2022-11-27] MEDS: IPRATROPIUM BROMIDE 0.5 MG/2.5 ML NEBU NEB SCH ×4 (01:21→21:51)
[2022-11-27] MEDS: ALBUTEROL SULFATE 2.5 MG/3 ML NEBU NEB SCH ×4 (01:22→21:51)
[2022-11-27] MEDS: PANTOPRAZOLE ORAL SUSPENSION 40 MG SUSPDR.PKT GT SCH (05:23)
[2022-11-27] MEDS: HYDROGEN PEROXIDE 3% 118 ML BOTTLE TP SCH ×2 (08:00→21:52)
[2022-11-27] MEDS: ACIDOPHILUS/BULGARICUS CHEW TAB GT SCH ×2 (08:58→21:48)
[2022-11-27] MEDS: levETIRAcetam 500 MG/5 ML LIQUID UDC GT SCH ×2 (08:58→21:49)
[2022-11-27] MEDS: REMEDY ESSENTIAL ZINC PASTE 113 GM TP SCH ×4 (09:00→21:51)
[2022-11-27] MEDS: MEDIHONEY= THERAHONEY 1.5 OZ TUBE TOP SCH ×4 (09:00→21:51)
[2022-11-27] MEDS: METOPROLOL TARTRATE 75 MG GT SCH ×2 (09:00→21:50)
[2022-11-27] MEDS: CLOPIDOGREL 75 MG TABLET GT SCH (09:00)
[2022-11-27] MEDS: ASCORBIC ACID 500 MG TABLET GT SCH (09:00)
[2022-11-27] MEDS: JEVITY 1.2 1000 ML LIQUID GT PRN (17:49)
[2022-11-27] MEDS: ENOXAPARIN SODIUM 40 MG/0.4 ML DISP.SYRIN SQ SCH (22:03)
[2022-11-28] VITALS (11 sets, daily range): TEMP 98.2–98.4; O2SAT 97–99
[2022-11-28] MEDS: ALBUTEROL SULFATE 2.5 MG/3 ML NEBU NEB SCH ×4 (01:25→19:40)
[2022-11-28] MEDS: IPRATROPIUM BROMIDE 0.5 MG/2.5 ML NEBU NEB SCH ×4 (01:25→19:40)
[2022-11-28] MEDS: PANTOPRAZOLE ORAL SUSPENSION 40 MG SUSPDR.PKT GT SCH (05:23)
[2022-11-28] MEDS: JEVITY 1.2 1000 ML LIQUID GT PRN (07:26)
[2022-11-28] MEDS: levETIRAcetam 500 MG/5 ML LIQUID UDC GT SCH ×2 (09:01→21:00)
[2022-11-28] MEDS: ACIDOPHILUS/BULGARICUS CHEW TAB GT SCH ×2 (09:01→21:00)
[2022-11-28] MEDS: CLOPIDOGREL 75 MG TABLET GT SCH (09:02)
[2022-11-28] MEDS: METOPROLOL TARTRATE 75 MG GT SCH ×2 (09:02→21:00)
[2022-11-28] MEDS: ASCORBIC ACID 500 MG TABLET GT SCH (09:02)
[2022-11-28] MEDS: REMEDY ESSENTIAL ZINC PASTE 113 GM TP SCH ×4 (09:02→21:00)
[2022-11-28] MEDS: MEDIHONEY= THERAHONEY 1.5 OZ TUBE TOP SCH ×4 (09:02→21:00)
[2022-11-28] MEDS: HYDROGEN PEROXIDE 3% 118 ML BOTTLE TP SCH ×2 (09:57→21:00)
[2022-11-28] MEDS: ENOXAPARIN SODIUM 40 MG/0.4 ML DISP.SYRIN SQ SCH (21:00)
[2022-11-29] VITALS (10 sets, daily range): TEMP 98.5; O2SAT 97–99
[2022-11-29] MEDS: JEVITY 1.2 1000 ML LIQUID GT PRN ×2 (01:08→16:12)
[2022-11-29] MEDS: ALBUTEROL SULFATE 2.5 MG/3 ML NEBU NEB SCH ×4 (02:06→19:55)
[2022-11-29] MEDS: IPRATROPIUM BROMIDE 0.5 MG/2.5 ML NEBU NEB SCH ×4 (02:06→19:55)
[2022-11-29] MEDS: PANTOPRAZOLE ORAL SUSPENSION 40 MG SUSPDR.PKT GT SCH (05:34)
[2022-11-29] MEDS: HYDROGEN PEROXIDE 3% 118 ML BOTTLE TP SCH ×2 (07:20→20:45)
[2022-11-29] MEDS: levETIRAcetam 500 MG/5 ML LIQUID UDC GT SCH ×2 (09:32→20:12)
[2022-11-29] MEDS: ACIDOPHILUS/BULGARICUS CHEW TAB GT SCH ×2 (09:32→20:12)
[2022-11-29] MEDS: METOPROLOL TARTRATE 75 MG GT SCH ×2 (09:33→20:06)
[2022-11-29] MEDS: REMEDY ESSENTIAL ZINC PASTE 113 GM TP SCH ×4 (09:34→21:00)
[2022-11-29] MEDS: ASCORBIC ACID 500 MG TABLET GT SCH (09:34)
[2022-11-29] MEDS: CLOPIDOGREL 75 MG TABLET GT SCH (09:34)
[2022-11-29] MEDS: MEDIHONEY= THERAHONEY 1.5 OZ TUBE TOP SCH ×4 (09:34→21:00)
[2022-11-29] MEDS: ENOXAPARIN SODIUM 40 MG/0.4 ML DISP.SYRIN SQ SCH (20:05)
[2022-11-30] VITALS (10 sets, daily range): TEMP 98.6–98.9; O2SAT 97–99
[2022-11-30] MEDS: ALBUTEROL SULFATE 2.5 MG/3 ML NEBU NEB SCH ×4 (01:10→19:12)
[2022-11-30] MEDS: IPRATROPIUM BROMIDE 0.5 MG/2.5 ML NEBU NEB SCH ×4 (01:10→19:12)
[2022-11-30] MEDS: PANTOPRAZOLE ORAL SUSPENSION 40 MG SUSPDR.PKT GT SCH (05:36)
[2022-11-30] MEDS: HYDROGEN PEROXIDE 3% 118 ML BOTTLE TP SCH ×2 (09:00→21:00)
[2022-11-30] MEDS: METOPROLOL TARTRATE 75 MG GT SCH ×2 (09:00→21:00)
[2022-11-30] MEDS: ACIDOPHILUS/BULGARICUS CHEW TAB GT SCH ×2 (09:25→21:00)
[2022-11-30] MEDS: levETIRAcetam 500 MG/5 ML LIQUID UDC GT SCH ×2 (09:25→21:00)
[2022-11-30] MEDS: ASCORBIC ACID 500 MG TABLET GT SCH (09:26)
[2022-11-30] MEDS: CLOPIDOGREL 75 MG TABLET GT SCH (09:26)
[2022-11-30] MEDS: MEDIHONEY= THERAHONEY 1.5 OZ TUBE TOP SCH ×4 (09:27→21:00)
[2022-11-30] MEDS: REMEDY ESSENTIAL ZINC PASTE 113 GM TP SCH ×4 (09:27→21:00)
[2022-11-30] MEDS: ENOXAPARIN SODIUM 40 MG/0.4 ML DISP.SYRIN SQ SCH (21:00)
[2022-12-01] VITALS (10 sets, daily range): TEMP 97.6–98.4; O2SAT 97–99
[2022-12-01] MEDS: ALBUTEROL SULFATE 2.5 MG/3 ML NEBU NEB SCH ×4 (01:58→19:50)
[2022-12-01] MEDS: IPRATROPIUM BROMIDE 0.5 MG/2.5 ML NEBU NEB SCH ×4 (01:58→19:50)
[2022-12-01] MEDS: JEVITY 1.2 1000 ML LIQUID GT PRN (02:25)
[2022-12-01] MEDS: PANTOPRAZOLE ORAL SUSPENSION 40 MG SUSPDR.PKT GT SCH (06:00)
[2022-12-01] MEDS: HYDROGEN PEROXIDE 3% 118 ML BOTTLE TP SCH ×2 (08:27→21:00)
[2022-12-01] MEDS: METOPROLOL TARTRATE 75 MG GT SCH ×2 (09:00→20:40)
[2022-12-01] MEDS: ACIDOPHILUS/BULGARICUS CHEW TAB GT SCH ×2 (09:20→20:39)
[2022-12-01] MEDS: levETIRAcetam 500 MG/5 ML LIQUID UDC GT SCH ×2 (09:20→20:39)
[2022-12-01] MEDS: ASCORBIC ACID 500 MG TABLET GT SCH (09:21)
[2022-12-01] MEDS: MEDIHONEY= THERAHONEY 1.5 OZ TUBE TOP SCH ×4 (09:21→20:40)
[2022-12-01] MEDS: REMEDY ESSENTIAL ZINC PASTE 113 GM TP SCH ×4 (09:21→20:40)
[2022-12-01] MEDS: CLOPIDOGREL 75 MG TABLET GT SCH (09:21)
[2022-12-01] MEDS: ENOXAPARIN SODIUM 40 MG/0.4 ML DISP.SYRIN SQ SCH (21:44)
[2022-12-02] VITALS (11 sets, daily range): TEMP 98–98.6; O2SAT 97–99
[2022-12-02] MEDS: IPRATROPIUM BROMIDE 0.5 MG/2.5 ML NEBU NEB SCH ×4 (01:52→19:33)
[2022-12-02] MEDS: ALBUTEROL SULFATE 2.5 MG/3 ML NEBU NEB SCH ×4 (01:52→19:33)
[2022-12-02] MEDS: PANTOPRAZOLE ORAL SUSPENSION 40 MG SUSPDR.PKT GT SCH (06:00)
[2022-12-02] MEDS: HYDROGEN PEROXIDE 3% 118 ML BOTTLE TP SCH ×2 (08:53→21:07)
[2022-12-02] MEDS: levETIRAcetam 500 MG/5 ML LIQUID UDC GT SCH ×2 (09:00→20:44)
[2022-12-02] MEDS: CLOPIDOGREL 75 MG TABLET GT SCH (09:00)
[2022-12-02] MEDS: REMEDY ESSENTIAL ZINC PASTE 113 GM TP SCH ×4 (09:00→20:45)
[2022-12-02] MEDS: MEDIHONEY= THERAHONEY 1.5 OZ TUBE TOP SCH ×4 (09:00→20:45)
[2022-12-02] MEDS: METOPROLOL TARTRATE 75 MG GT SCH ×2 (09:00→20:44)
[2022-12-02] MEDS: ASCORBIC ACID 500 MG TABLET GT SCH (09:00)
[2022-12-02] MEDS: ACIDOPHILUS/BULGARICUS CHEW TAB GT SCH ×2 (09:00→20:43)
[2022-12-02] MEDS: JEVITY 1.2 1000 ML LIQUID GT PRN ×2 (18:55)
[2022-12-02] MEDS: ENOXAPARIN SODIUM 40 MG/0.4 ML DISP.SYRIN SQ SCH (20:45)
[2022-12-03] VITALS (10 sets, daily range): TEMP 97.9–98.3; O2SAT 97–99
[2022-12-03] MEDS: IPRATROPIUM BROMIDE 0.5 MG/2.5 ML NEBU NEB SCH ×4 (01:52→19:18)
[2022-12-03] MEDS: ALBUTEROL SULFATE 2.5 MG/3 ML NEBU NEB SCH ×4 (01:52→19:18)
[2022-12-03] MEDS: PANTOPRAZOLE ORAL SUSPENSION 40 MG SUSPDR.PKT GT SCH (05:46)
[2022-12-03] MEDS: HYDROGEN PEROXIDE 3% 118 ML BOTTLE TP SCH ×2 (09:00→19:18)
[2022-12-03] MEDS: CLOPIDOGREL 75 MG TABLET GT SCH (09:52)
[2022-12-03] MEDS: METOPROLOL TARTRATE 75 MG GT SCH ×2 (09:52→21:00)
[2022-12-03] MEDS: REMEDY ESSENTIAL ZINC PASTE 113 GM TP SCH ×4 (09:52→21:00)
[2022-12-03] MEDS: levETIRAcetam 500 MG/5 ML LIQUID UDC GT SCH ×2 (09:52→21:00)
[2022-12-03] MEDS: ACIDOPHILUS/BULGARICUS CHEW TAB GT SCH ×2 (09:52→21:00)
[2022-12-03] MEDS: ASCORBIC ACID 500 MG TABLET GT SCH (09:52)
[2022-12-03] MEDS: JEVITY 1.2 1000 ML LIQUID GT PRN (12:37)
[2022-12-03] MEDS: ENOXAPARIN SODIUM 40 MG/0.4 ML DISP.SYRIN SQ SCH (21:00)
[2022-12-04] VITALS (9 sets, daily range): TEMP 98.3; O2SAT 99
[2022-12-04] MEDS: ALBUTEROL SULFATE 2.5 MG/3 ML NEBU NEB SCH ×4 (01:54→19:19)
[2022-12-04] MEDS: IPRATROPIUM BROMIDE 0.5 MG/2.5 ML NEBU NEB SCH ×4 (01:54→19:19)
[2022-12-04] MEDS: JEVITY 1.2 1000 ML LIQUID GT PRN ×2 (03:28→21:30)
[2022-12-04] MEDS: PANTOPRAZOLE ORAL SUSPENSION 40 MG SUSPDR.PKT GT SCH (05:17)
[2022-12-04] MEDS: HYDROGEN PEROXIDE 3% 118 ML BOTTLE TP SCH ×2 (08:00→19:19)
[2022-12-04] MEDS: ASCORBIC ACID 500 MG TABLET GT SCH (09:00)
[2022-12-04] MEDS: ACIDOPHILUS/BULGARICUS CHEW TAB GT SCH ×2 (09:00→21:20)
[2022-12-04] MEDS: CLOPIDOGREL 75 MG TABLET GT SCH (09:00)
[2022-12-04] MEDS: METOPROLOL TARTRATE 75 MG GT SCH ×2 (09:00→21:20)
[2022-12-04] MEDS: REMEDY ESSENTIAL ZINC PASTE 113 GM TP SCH ×4 (09:00→21:21)
[2022-12-04] MEDS: levETIRAcetam 500 MG/5 ML LIQUID UDC GT SCH ×2 (09:00→21:20)
[2022-12-04] MEDS: ENOXAPARIN SODIUM 40 MG/0.4 ML DISP.SYRIN SQ SCH (21:00)
[2022-12-04] MEDS: MEDIHONEY= THERAHONEY 1.5 OZ TUBE TOP SCH ×2 (21:20→21:21)
[2022-12-05] VITALS (10 sets, daily range): TEMP 97.8–98.5; O2SAT 99
[2022-12-05] MEDS: ALBUTEROL SULFATE 2.5 MG/3 ML NEBU NEB SCH ×4 (01:22→19:23)
[2022-12-05] MEDS: IPRATROPIUM BROMIDE 0.5 MG/2.5 ML NEBU NEB SCH ×4 (01:22→19:23)
[2022-12-05] MEDS: PANTOPRAZOLE ORAL SUSPENSION 40 MG SUSPDR.PKT GT SCH (06:05)
[2022-12-05] MEDS: METOPROLOL TARTRATE 75 MG GT SCH ×2 (09:00→21:32)
[2022-12-05] MEDS: ASCORBIC ACID 500 MG TABLET GT SCH (09:00)
[2022-12-05] MEDS: MEDIHONEY= THERAHONEY 1.5 OZ TUBE TOP SCH ×4 (09:00→21:32)
[2022-12-05] MEDS: REMEDY ESSENTIAL ZINC PASTE 113 GM TP SCH ×4 (09:00→21:32)
[2022-12-05] MEDS: HYDROGEN PEROXIDE 3% 118 ML BOTTLE TP SCH ×2 (09:26→19:24)
[2022-12-05] MEDS: ACIDOPHILUS/BULGARICUS CHEW TAB GT SCH ×2 (09:57→21:32)
[2022-12-05] MEDS: levETIRAcetam 500 MG/5 ML LIQUID UDC GT SCH ×2 (09:58→21:32)
[2022-12-05] MEDS: CLOPIDOGREL 75 MG TABLET GT SCH (10:00)
[2022-12-05] MEDS: JEVITY 1.2 1000 ML LIQUID GT PRN (15:45)
[2022-12-05] MEDS: ENOXAPARIN SODIUM 40 MG/0.4 ML DISP.SYRIN SQ SCH (21:00)
[2022-12-06] VITALS (11 sets, daily range): TEMP 97.9–98.8; O2SAT 98–99
[2022-12-06] MEDS: IPRATROPIUM BROMIDE 0.5 MG/2.5 ML NEBU NEB SCH ×4 (01:25→19:30)
[2022-12-06] MEDS: ALBUTEROL SULFATE 2.5 MG/3 ML NEBU NEB SCH ×4 (01:25→19:30)
[2022-12-06] MEDS: JEVITY 1.2 1000 ML LIQUID GT PRN (04:59)
[2022-12-06] MEDS: PANTOPRAZOLE ORAL SUSPENSION 40 MG SUSPDR.PKT GT SCH (05:08)
[2022-12-06] MEDS: ACIDOPHILUS/BULGARICUS CHEW TAB GT SCH ×2 (08:58→20:52)
[2022-12-06] MEDS: CLOPIDOGREL 75 MG TABLET GT SCH (08:59)
[2022-12-06] MEDS: REMEDY ESSENTIAL ZINC PASTE 113 GM TP SCH ×4 (08:59→20:53)
[2022-12-06] MEDS: METOPROLOL TARTRATE 75 MG GT SCH ×2 (08:59→20:52)
[2022-12-06] MEDS: ASCORBIC ACID 500 MG TABLET GT SCH (08:59)
[2022-12-06] MEDS: MEDIHONEY= THERAHONEY 1.5 OZ TUBE TOP SCH ×4 (08:59→20:53)
[2022-12-06] MEDS: levETIRAcetam 500 MG/5 ML LIQUID UDC GT SCH ×2 (08:59→20:52)
[2022-12-06] MEDS: HYDROGEN PEROXIDE 3% 118 ML BOTTLE TP SCH ×2 (10:50→21:08)
[2022-12-06] MEDS: ENOXAPARIN SODIUM 40 MG/0.4 ML DISP.SYRIN SQ SCH (21:00)
[2022-12-07] VITALS (9 sets, daily range): TEMP 98.8; O2SAT 99
[2022-12-07] MEDS: ALBUTEROL SULFATE 2.5 MG/3 ML NEBU NEB SCH ×4 (01:50→19:50)
[2022-12-07] MEDS: IPRATROPIUM BROMIDE 0.5 MG/2.5 ML NEBU NEB SCH ×4 (01:50→19:50)
[2022-12-07] MEDS: PANTOPRAZOLE ORAL SUSPENSION 40 MG SUSPDR.PKT GT SCH (05:58)
[2022-12-07] MEDS: ACIDOPHILUS/BULGARICUS CHEW TAB GT SCH ×2 (09:00→21:16)
[2022-12-07] MEDS: METOPROLOL TARTRATE 75 MG GT SCH ×2 (09:00→21:16)
[2022-12-07] MEDS: MEDIHONEY= THERAHONEY 1.5 OZ TUBE TOP SCH ×4 (09:00→21:16)
[2022-12-07] MEDS: REMEDY ESSENTIAL ZINC PASTE 113 GM TP SCH ×4 (09:00→21:16)
[2022-12-07] MEDS: levETIRAcetam 500 MG/5 ML LIQUID UDC GT SCH ×2 (09:00→21:16)
[2022-12-07] MEDS: CLOPIDOGREL 75 MG TABLET GT SCH (09:00)
[2022-12-07] MEDS: ASCORBIC ACID 500 MG TABLET GT SCH (09:00)
[2022-12-07] MEDS: HYDROGEN PEROXIDE 3% 118 ML BOTTLE TP SCH ×2 (09:55→22:00)
[2022-12-07] MEDS: ENOXAPARIN SODIUM 40 MG/0.4 ML DISP.SYRIN SQ SCH (21:10)
[2022-12-08] VITALS (9 sets, daily range): TEMP 98.4–100.4; O2SAT 97–99
[2022-12-08] MEDS: JEVITY 1.2 1000 ML LIQUID GT PRN (01:22)
[2022-12-08] MEDS: ALBUTEROL SULFATE 2.5 MG/3 ML NEBU NEB SCH ×4 (01:45→19:30)
[2022-12-08] MEDS: IPRATROPIUM BROMIDE 0.5 MG/2.5 ML NEBU NEB SCH ×4 (01:45→19:25)
[2022-12-08] MEDS: PANTOPRAZOLE ORAL SUSPENSION 40 MG SUSPDR.PKT GT SCH (05:06)
[2022-12-08] MEDS: HYDROGEN PEROXIDE 3% 118 ML BOTTLE TP SCH ×2 (07:34→21:59)
[2022-12-08] MEDS: METOPROLOL TARTRATE 75 MG GT SCH ×2 (09:00→21:24)
[2022-12-08] MEDS: REMEDY ESSENTIAL ZINC PASTE 113 GM TP SCH ×4 (09:00→21:25)
[2022-12-08] MEDS: MEDIHONEY= THERAHONEY 1.5 OZ TUBE TOP SCH ×4 (09:00→21:25)
[2022-12-08] MEDS: ACIDOPHILUS/BULGARICUS CHEW TAB GT SCH ×2 (09:00→21:24)
[2022-12-08] MEDS: CLOPIDOGREL 75 MG TABLET GT SCH (09:00)
[2022-12-08] MEDS: levETIRAcetam 500 MG/5 ML LIQUID UDC GT SCH ×2 (09:00→21:24)
[2022-12-08] MEDS: ASCORBIC ACID 500 MG TABLET GT SCH (09:00)
[2022-12-08] MEDS: ENOXAPARIN SODIUM 40 MG/0.4 ML DISP.SYRIN SQ SCH (21:25)
[2022-12-09] VITALS (10 sets, daily range): TEMP 97.8–98.5; O2SAT 96–99
[2022-12-09] MEDS: IPRATROPIUM BROMIDE 0.5 MG/2.5 ML NEBU NEB SCH ×4 (01:55→19:30)
[2022-12-09] MEDS: ALBUTEROL SULFATE 2.5 MG/3 ML NEBU NEB SCH ×4 (01:55→19:30)
[2022-12-09] MEDS: PANTOPRAZOLE ORAL SUSPENSION 40 MG SUSPDR.PKT GT SCH (05:17)
[2022-12-09] MEDS: ACIDOPHILUS/BULGARICUS CHEW TAB GT SCH ×2 (08:45→21:00)
[2022-12-09] MEDS: levETIRAcetam 500 MG/5 ML LIQUID UDC GT SCH ×2 (08:45→21:00)
[2022-12-09] MEDS: ASCORBIC ACID 500 MG TABLET GT SCH (08:47)
[2022-12-09] MEDS: METOPROLOL TARTRATE 75 MG GT SCH ×2 (08:47→21:01)
[2022-12-09] MEDS: CLOPIDOGREL 75 MG TABLET GT SCH (08:47)
[2022-12-09] MEDS: REMEDY ESSENTIAL ZINC PASTE 113 GM TP SCH ×4 (08:48→21:02)
[2022-12-09] MEDS: MEDIHONEY= THERAHONEY 1.5 OZ TUBE TOP SCH ×4 (08:48→21:02)
[2022-12-09] MEDS: HYDROGEN PEROXIDE 3% 118 ML BOTTLE TP SCH ×2 (09:00→20:31)
[2022-12-09] MEDS: ENOXAPARIN SODIUM 40 MG/0.4 ML DISP.SYRIN SQ SCH (21:02)
[2022-12-10] VITALS (10 sets, daily range): TEMP 97.4–98.2; O2SAT 97–99
[2022-12-10] MEDS: IPRATROPIUM BROMIDE 0.5 MG/2.5 ML NEBU NEB SCH ×4 (01:22→19:24)
[2022-12-10] MEDS: ALBUTEROL SULFATE 2.5 MG/3 ML NEBU NEB SCH ×4 (01:22→19:24)
[2022-12-10] MEDS: JEVITY 1.2 1000 ML LIQUID GT PRN ×2 (02:15→18:07)
[2022-12-10] MEDS: PANTOPRAZOLE ORAL SUSPENSION 40 MG SUSPDR.PKT GT SCH (05:42)
[2022-12-10] MEDS: HYDROGEN PEROXIDE 3% 118 ML BOTTLE TP SCH ×2 (09:00→19:24)
[2022-12-10] MEDS: levETIRAcetam 500 MG/5 ML LIQUID UDC GT SCH ×2 (09:06→21:05)
[2022-12-10] MEDS: ACIDOPHILUS/BULGARICUS CHEW TAB GT SCH ×2 (09:06→21:05)
[2022-12-10] MEDS: CLOPIDOGREL 75 MG TABLET GT SCH (09:07)
[2022-12-10] MEDS: ASCORBIC ACID 500 MG TABLET GT SCH (09:07)
[2022-12-10] MEDS: MEDIHONEY= THERAHONEY 1.5 OZ TUBE TOP SCH ×4 (09:07→21:09)
[2022-12-10] MEDS: METOPROLOL TARTRATE 75 MG GT SCH ×2 (09:07→21:00)
[2022-12-10] MEDS: REMEDY ESSENTIAL ZINC PASTE 113 GM TP SCH ×4 (09:08→21:09)
[2022-12-10] MEDS: ENOXAPARIN SODIUM 40 MG/0.4 ML DISP.SYRIN SQ SCH (21:08)
[2022-12-11] VITALS (10 sets, daily range): TEMP 97.4–97.6; O2SAT 97–99
[2022-12-11] MEDS: ALBUTEROL SULFATE 2.5 MG/3 ML NEBU NEB SCH ×4 (01:50→19:09)
[2022-12-11] MEDS: IPRATROPIUM BROMIDE 0.5 MG/2.5 ML NEBU NEB SCH ×4 (01:50→19:09)
[2022-12-11] MEDS: PANTOPRAZOLE ORAL SUSPENSION 40 MG SUSPDR.PKT GT SCH (05:42)
[2022-12-11] MEDS: HYDROGEN PEROXIDE 3% 118 ML BOTTLE TP SCH ×2 (08:05→19:09)
[2022-12-11] MEDS: ACIDOPHILUS/BULGARICUS CHEW TAB GT SCH ×2 (08:44→20:45)
[2022-12-11] MEDS: levETIRAcetam 500 MG/5 ML LIQUID UDC GT SCH ×2 (08:44→20:46)
[2022-12-11] MEDS: METOPROLOL TARTRATE 75 MG GT SCH ×2 (08:46→20:46)
[2022-12-11] MEDS: CLOPIDOGREL 75 MG TABLET GT SCH (08:47)
[2022-12-11] MEDS: MEDIHONEY= THERAHONEY 1.5 OZ TUBE TOP SCH ×4 (08:47→20:47)
[2022-12-11] MEDS: ASCORBIC ACID 500 MG TABLET GT SCH (08:47)
[2022-12-11] MEDS: REMEDY ESSENTIAL ZINC PASTE 113 GM TP SCH ×4 (08:47→20:47)
[2022-12-11] MEDS: ENOXAPARIN SODIUM 40 MG/0.4 ML DISP.SYRIN SQ SCH (20:47)
[2022-12-12] VITALS (10 sets, daily range): TEMP 98.3–98.8; O2SAT 97–99
[2022-12-12] MEDS: ALBUTEROL SULFATE 2.5 MG/3 ML NEBU NEB SCH ×4 (01:06→19:11)
[2022-12-12] MEDS: IPRATROPIUM BROMIDE 0.5 MG/2.5 ML NEBU NEB SCH ×4 (01:06→19:11)
[2022-12-12] MEDS: PANTOPRAZOLE ORAL SUSPENSION 40 MG SUSPDR.PKT GT SCH (05:48)
[2022-12-12] MEDS: HYDROGEN PEROXIDE 3% 118 ML BOTTLE TP SCH ×2 (07:24→19:11)
[2022-12-12] MEDS: levETIRAcetam 500 MG/5 ML LIQUID UDC GT SCH ×2 (09:00→21:00)
[2022-12-12] MEDS: ACIDOPHILUS/BULGARICUS CHEW TAB GT SCH ×2 (09:00→21:00)
[2022-12-12] MEDS: MEDIHONEY= THERAHONEY 1.5 OZ TUBE TOP SCH ×4 (09:00→21:00)
[2022-12-12] MEDS: ASCORBIC ACID 500 MG TABLET GT SCH (09:00)
[2022-12-12] MEDS: CLOPIDOGREL 75 MG TABLET GT SCH (09:00)
[2022-12-12] MEDS: METOPROLOL TARTRATE 75 MG GT SCH ×2 (09:00→21:52)
[2022-12-12] MEDS: REMEDY ESSENTIAL ZINC PASTE 113 GM TP SCH ×4 (09:00→21:00)
[2022-12-12] MEDS: JEVITY 1.2 1000 ML LIQUID GT PRN (14:48)
[2022-12-12] MEDS: ENOXAPARIN SODIUM 40 MG/0.4 ML DISP.SYRIN SQ SCH (21:00)
[2022-12-13] VITALS (10 sets, daily range): TEMP 98.3; O2SAT 97–99
[2022-12-13] MEDS: IPRATROPIUM BROMIDE 0.5 MG/2.5 ML NEBU NEB SCH ×4 (01:31→19:33)
[2022-12-13] MEDS: ALBUTEROL SULFATE 2.5 MG/3 ML NEBU NEB SCH ×4 (01:31→19:33)
[2022-12-13] MEDS: JEVITY 1.2 1000 ML LIQUID GT PRN ×2 (03:29→23:59)
[2022-12-13] MEDS: PANTOPRAZOLE ORAL SUSPENSION 40 MG SUSPDR.PKT GT SCH (05:39)
[2022-12-13] MEDS: HYDROGEN PEROXIDE 3% 118 ML BOTTLE TP SCH ×2 (08:05→20:58)
[2022-12-13] MEDS: levETIRAcetam 500 MG/5 ML LIQUID UDC GT SCH ×2 (09:52→20:56)
[2022-12-13] MEDS: ACIDOPHILUS/BULGARICUS CHEW TAB GT SCH ×2 (09:52→20:56)
[2022-12-13] MEDS: METOPROLOL TARTRATE 75 MG GT SCH ×2 (09:53→20:57)
[2022-12-13] MEDS: ASCORBIC ACID 500 MG TABLET GT SCH ×2 (09:54→20:57)
[2022-12-13] MEDS: MEDIHONEY= THERAHONEY 1.5 OZ TUBE TOP SCH ×4 (09:54→20:58)
[2022-12-13] MEDS: CLOPIDOGREL 75 MG TABLET GT SCH (09:54)
[2022-12-13] MEDS: REMEDY ESSENTIAL ZINC PASTE 113 GM TP SCH ×4 (09:55→20:58)
[2022-12-13] MEDS: ENOXAPARIN SODIUM 40 MG/0.4 ML DISP.SYRIN SQ SCH (21:00)
[2022-12-14] VITALS (10 sets, daily range): TEMP 97.9–98.3; O2SAT 96–99
[2022-12-14] MEDS: ALBUTEROL SULFATE 2.5 MG/3 ML NEBU NEB SCH ×4 (01:25→19:30)
[2022-12-14] MEDS: IPRATROPIUM BROMIDE 0.5 MG/2.5 ML NEBU NEB SCH ×4 (01:25→19:30)
[2022-12-14] MEDS: PANTOPRAZOLE ORAL SUSPENSION 40 MG SUSPDR.PKT GT SCH (05:24)
[2022-12-14] MEDS: HYDROGEN PEROXIDE 3% 118 ML BOTTLE TP SCH ×2 (07:09→19:30)
[2022-12-14] MEDS: CLOPIDOGREL 75 MG TABLET GT SCH (09:00)
[2022-12-14] MEDS: levETIRAcetam 500 MG/5 ML LIQUID UDC GT SCH ×2 (09:00→21:00)
[2022-12-14] MEDS: ACIDOPHILUS/BULGARICUS CHEW TAB GT SCH ×2 (09:00→20:59)
[2022-12-14] MEDS: METOPROLOL TARTRATE 75 MG GT SCH ×2 (10:00→21:01)
[2022-12-14] MEDS: MEDIHONEY= THERAHONEY 1.5 OZ TUBE TOP SCH ×2 (10:00)
[2022-12-14] MEDS: REMEDY ESSENTIAL ZINC PASTE 113 GM TP SCH ×4 (10:00→21:05)
[2022-12-14] MEDS: JEVITY 1.2 1000 ML LIQUID GT PRN (17:56)
[2022-12-14] MEDS: ASCORBIC ACID 500 MG TABLET GT SCH (21:00)
[2022-12-14] MEDS: ENOXAPARIN SODIUM 40 MG/0.4 ML DISP.SYRIN SQ SCH (21:05)
[2022-12-14] MEDS: NEOMY/BACITRA/POLYMYXIN B OINT UD PACKET TP SCH ×2 (21:05)
[2022-12-15] VITALS (10 sets, daily range): TEMP 97.8–98.9; O2SAT 97–99
[2022-12-15] MEDS: IPRATROPIUM BROMIDE 0.5 MG/2.5 ML NEBU NEB SCH ×4 (01:55→19:14)
[2022-12-15] MEDS: ALBUTEROL SULFATE 2.5 MG/3 ML NEBU NEB SCH ×4 (01:55→19:14)
[2022-12-15] MEDS: PANTOPRAZOLE ORAL SUSPENSION 40 MG SUSPDR.PKT GT SCH (05:46)
[2022-12-15] MEDS: HYDROGEN PEROXIDE 3% 118 ML BOTTLE TP SCH ×2 (08:00→19:14)
[2022-12-15] MEDS: JEVITY 1.2 1000 ML LIQUID GT PRN (11:43)
[2022-12-15] MEDS: ACIDOPHILUS/BULGARICUS CHEW TAB GT SCH ×2 (11:54→21:44)
[2022-12-15] MEDS: levETIRAcetam 500 MG/5 ML LIQUID UDC GT SCH ×2 (11:54→21:44)
[2022-12-15] MEDS: REMEDY ESSENTIAL ZINC PASTE 113 GM TP SCH ×4 (11:55→21:46)
[2022-12-15] MEDS: CLOPIDOGREL 75 MG TABLET GT SCH (11:55)
[2022-12-15] MEDS: NEOMY/BACITRA/POLYMYXIN B OINT UD PACKET TP SCH ×4 (11:55→21:46)
[2022-12-15] MEDS: METOPROLOL TARTRATE 75 MG GT SCH ×2 (11:58→21:45)
[2022-12-15] MEDS: ASCORBIC ACID 500 MG TABLET GT SCH (21:45)
[2022-12-15] MEDS: ENOXAPARIN SODIUM 40 MG/0.4 ML DISP.SYRIN SQ SCH (21:46)
[2022-12-16] VITALS (10 sets, daily range): TEMP 98–98.8; O2SAT 97–99
[2022-12-16] MEDS: IPRATROPIUM BROMIDE 0.5 MG/2.5 ML NEBU NEB SCH ×4 (02:23→20:11)
[2022-12-16] MEDS: ALBUTEROL SULFATE 2.5 MG/3 ML NEBU NEB SCH ×4 (02:23→20:11)
[2022-12-16] MEDS: PANTOPRAZOLE ORAL SUSPENSION 40 MG SUSPDR.PKT GT SCH (05:06)
[2022-12-16] MEDS: REMEDY ESSENTIAL ZINC PASTE 113 GM TP SCH ×4 (09:00→21:37)
[2022-12-16] MEDS: levETIRAcetam 500 MG/5 ML LIQUID UDC GT SCH ×2 (09:00→21:34)
[2022-12-16] MEDS: NEOMY/BACITRA/POLYMYXIN B OINT UD PACKET TP SCH ×4 (09:00→21:37)
[2022-12-16] MEDS: CLOPIDOGREL 75 MG TABLET GT SCH (09:00)
[2022-12-16] MEDS: METOPROLOL TARTRATE 75 MG GT SCH ×2 (09:00→21:35)
[2022-12-16] MEDS: ACIDOPHILUS/BULGARICUS CHEW TAB GT SCH ×2 (09:00→21:34)
[2022-12-16] MEDS: HYDROGEN PEROXIDE 3% 118 ML BOTTLE TP SCH ×2 (13:51→21:00)
[2022-12-16] MEDS: JEVITY 1.2 1000 ML LIQUID GT PRN (19:38)
[2022-12-16] MEDS: ASCORBIC ACID 500 MG TABLET GT SCH (21:36)
[2022-12-16] MEDS: ENOXAPARIN SODIUM 40 MG/0.4 ML DISP.SYRIN SQ SCH (21:37)
[2022-12-17] VITALS (10 sets, daily range): TEMP 98.2–98.5; O2SAT 98–99
[2022-12-17] MEDS: ALBUTEROL SULFATE 2.5 MG/3 ML NEBU NEB SCH ×4 (01:57→19:46)
[2022-12-17] MEDS: IPRATROPIUM BROMIDE 0.5 MG/2.5 ML NEBU NEB SCH ×4 (01:57→19:46)
[2022-12-17] MEDS: PANTOPRAZOLE ORAL SUSPENSION 40 MG SUSPDR.PKT GT SCH (05:07)
[2022-12-17] MEDS: HYDROGEN PEROXIDE 3% 118 ML BOTTLE TP SCH ×2 (07:30→21:00)
[2022-12-17] MEDS: ACIDOPHILUS/BULGARICUS CHEW TAB GT SCH ×2 (08:46→21:25)
[2022-12-17] MEDS: levETIRAcetam 500 MG/5 ML LIQUID UDC GT SCH ×2 (08:46→21:25)
[2022-12-17] MEDS: REMEDY ESSENTIAL ZINC PASTE 113 GM TP SCH ×4 (08:47→21:29)
[2022-12-17] MEDS: NEOMY/BACITRA/POLYMYXIN B OINT UD PACKET TP SCH ×4 (08:47→21:29)
[2022-12-17] MEDS: METOPROLOL TARTRATE 75 MG GT SCH ×2 (08:47→21:27)
[2022-12-17] MEDS: CLOPIDOGREL 75 MG TABLET GT SCH (08:47)
[2022-12-17] MEDS: ASCORBIC ACID 500 MG TABLET GT SCH (21:28)
[2022-12-17] MEDS: ENOXAPARIN SODIUM 40 MG/0.4 ML DISP.SYRIN SQ SCH (21:29)
[2022-12-18] VITALS (8 sets, daily range): TEMP 98–98.6; O2SAT 98–99
[2022-12-18] MEDS: IPRATROPIUM BROMIDE 0.5 MG/2.5 ML NEBU NEB SCH ×4 (01:35→18:30)
[2022-12-18] MEDS: ALBUTEROL SULFATE 2.5 MG/3 ML NEBU NEB SCH ×4 (01:35→18:30)
[2022-12-18] MEDS: JEVITY 1.2 1000 ML LIQUID GT PRN ×2 (03:56→17:43)
[2022-12-18] MEDS: PANTOPRAZOLE ORAL SUSPENSION 40 MG SUSPDR.PKT GT SCH (05:49)
[2022-12-18] MEDS: HYDROGEN PEROXIDE 3% 118 ML BOTTLE TP SCH ×2 (08:05→21:00)
[2022-12-18] MEDS: levETIRAcetam 500 MG/5 ML LIQUID UDC GT SCH ×2 (09:03→21:00)
[2022-12-18] MEDS: ACIDOPHILUS/BULGARICUS CHEW TAB GT SCH ×2 (09:03→21:00)
[2022-12-18] MEDS: REMEDY ESSENTIAL ZINC PASTE 113 GM TP SCH ×4 (09:04→21:00)
[2022-12-18] MEDS: METOPROLOL TARTRATE 75 MG GT SCH ×2 (09:04→21:00)
[2022-12-18] MEDS: CLOPIDOGREL 75 MG TABLET GT SCH (09:04)
[2022-12-18] MEDS: NEOMY/BACITRA/POLYMYXIN B OINT UD PACKET TP SCH ×4 (09:04→21:00)
[2022-12-18] MEDS: ENOXAPARIN SODIUM 40 MG/0.4 ML DISP.SYRIN SQ SCH (21:00)
[2022-12-18] MEDS: ASCORBIC ACID 500 MG TABLET GT SCH (21:00)
[2022-12-19] VITALS (10 sets, daily range): TEMP 97.3–98.4; O2SAT 98–99
[2022-12-19] MEDS: PANTOPRAZOLE ORAL SUSPENSION 40 MG SUSPDR.PKT GT SCH (05:16)
[2022-12-19] MEDS: IPRATROPIUM BROMIDE 0.5 MG/2.5 ML NEBU NEB SCH ×3 (07:25→19:20)
[2022-12-19] MEDS: ALBUTEROL SULFATE 2.5 MG/3 ML NEBU NEB SCH ×3 (07:25→19:20)
[2022-12-19] MEDS: ACIDOPHILUS/BULGARICUS CHEW TAB GT SCH ×2 (09:19→21:41)
[2022-12-19] MEDS: METOPROLOL TARTRATE 75 MG GT SCH ×2 (09:20→21:42)
[2022-12-19] MEDS: levETIRAcetam 500 MG/5 ML LIQUID UDC GT SCH ×2 (09:20→21:41)
[2022-12-19] MEDS: NEOMY/BACITRA/POLYMYXIN B OINT UD PACKET TP SCH ×4 (09:21→21:42)
[2022-12-19] MEDS: CLOPIDOGREL 75 MG TABLET GT SCH (09:21)
[2022-12-19] MEDS: REMEDY ESSENTIAL ZINC PASTE 113 GM TP SCH ×4 (09:21→21:42)
[2022-12-19] MEDS: HYDROGEN PEROXIDE 3% 118 ML BOTTLE TP SCH (19:20)
[2022-12-19] MEDS: ASCORBIC ACID 500 MG TABLET GT SCH (21:42)
[2022-12-19] MEDS: ENOXAPARIN SODIUM 40 MG/0.4 ML DISP.SYRIN SQ SCH (21:51)
[2022-12-20] VITALS (10 sets, daily range): TEMP 97.8–98.5; O2SAT 99
[2022-12-20] MEDS: ALBUTEROL SULFATE 2.5 MG/3 ML NEBU NEB SCH ×4 (01:30→19:20)
[2022-12-20] MEDS: IPRATROPIUM BROMIDE 0.5 MG/2.5 ML NEBU NEB SCH ×4 (01:30→19:20)
[2022-12-20] MEDS: PANTOPRAZOLE ORAL SUSPENSION 40 MG SUSPDR.PKT GT SCH (05:32)
[2022-12-20] MEDS: HYDROGEN PEROXIDE 3% 118 ML BOTTLE TP SCH ×2 (08:18→19:20)
[2022-12-20] MEDS: levETIRAcetam 500 MG/5 ML LIQUID UDC GT SCH ×2 (09:23→21:00)
[2022-12-20] MEDS: ACIDOPHILUS/BULGARICUS CHEW TAB GT SCH ×2 (09:23→21:00)
[2022-12-20] MEDS: METOPROLOL TARTRATE 75 MG GT SCH ×2 (09:27→21:00)
[2022-12-20] MEDS: NEOMY/BACITRA/POLYMYXIN B OINT UD PACKET TP SCH ×4 (09:27→21:00)
[2022-12-20] MEDS: CLOPIDOGREL 75 MG TABLET GT SCH (09:27)
[2022-12-20] MEDS: REMEDY ESSENTIAL ZINC PASTE 113 GM TP SCH ×4 (09:27→21:00)
[2022-12-20] MEDS: JEVITY 1.2 1000 ML LIQUID GT PRN (09:48)
[2022-12-20] MEDS: ASCORBIC ACID 500 MG TABLET GT SCH (21:00)
[2022-12-20] MEDS: ENOXAPARIN SODIUM 40 MG/0.4 ML DISP.SYRIN SQ SCH (21:00)
[2022-12-21] VITALS (10 sets, daily range): TEMP 98.4–98.6; O2SAT 99
[2022-12-21] MEDS: IPRATROPIUM BROMIDE 0.5 MG/2.5 ML NEBU NEB SCH ×4 (01:40→19:40)
[2022-12-21] MEDS: ALBUTEROL SULFATE 2.5 MG/3 ML NEBU NEB SCH ×4 (01:40→19:40)
[2022-12-21] MEDS: PANTOPRAZOLE ORAL SUSPENSION 40 MG SUSPDR.PKT GT SCH (06:40)
[2022-12-21] MEDS: ACIDOPHILUS/BULGARICUS CHEW TAB GT SCH ×2 (08:31→21:48)
[2022-12-21] MEDS: REMEDY ESSENTIAL ZINC PASTE 113 GM TP SCH ×4 (08:31→21:51)
[2022-12-21] MEDS: CLOPIDOGREL 75 MG TABLET GT SCH (08:31)
[2022-12-21] MEDS: levETIRAcetam 500 MG/5 ML LIQUID UDC GT SCH ×2 (08:31→21:48)
[2022-12-21] MEDS: NEOMY/BACITRA/POLYMYXIN B OINT UD PACKET TP SCH ×4 (08:31→21:52)
[2022-12-21] MEDS: METOPROLOL TARTRATE 75 MG GT SCH ×2 (08:37→21:49)
[2022-12-21] MEDS: HYDROGEN PEROXIDE 3% 118 ML BOTTLE TP SCH (21:00)
[2022-12-21] MEDS: ASCORBIC ACID 500 MG TABLET GT SCH (21:49)
[2022-12-21] MEDS: ENOXAPARIN SODIUM 40 MG/0.4 ML DISP.SYRIN SQ SCH (21:51)
[2022-12-22] VITALS (10 sets, daily range): TEMP 97.8–99.1; O2SAT 97–99
[2022-12-22] MEDS: ALBUTEROL SULFATE 2.5 MG/3 ML NEBU NEB SCH ×4 (01:32→19:25)
[2022-12-22] MEDS: IPRATROPIUM BROMIDE 0.5 MG/2.5 ML NEBU NEB SCH ×4 (01:32→19:25)
[2022-12-22] MEDS: PANTOPRAZOLE ORAL SUSPENSION 40 MG SUSPDR.PKT GT SCH (05:17)
[2022-12-22] MEDS: HYDROGEN PEROXIDE 3% 118 ML BOTTLE TP SCH ×2 (08:28→19:25)
[2022-12-22] MEDS: ACIDOPHILUS/BULGARICUS CHEW TAB GT SCH ×2 (09:33→21:00)
[2022-12-22] MEDS: levETIRAcetam 500 MG/5 ML LIQUID UDC GT SCH ×2 (09:34→21:00)
[2022-12-22] MEDS: REMEDY ESSENTIAL ZINC PASTE 113 GM TP SCH ×4 (09:38→21:00)
[2022-12-22] MEDS: METOPROLOL TARTRATE 75 MG GT SCH ×2 (09:38→21:00)
[2022-12-22] MEDS: CLOPIDOGREL 75 MG TABLET GT SCH (09:38)
[2022-12-22] MEDS: NEOMY/BACITRA/POLYMYXIN B OINT UD PACKET TP SCH ×4 (09:39→21:00)
[2022-12-22] MEDS: JEVITY 1.2 1000 ML LIQUID GT PRN (15:56)
[2022-12-22] MEDS: ENOXAPARIN SODIUM 40 MG/0.4 ML DISP.SYRIN SQ SCH (21:00)
[2022-12-22] MEDS: ASCORBIC ACID 500 MG TABLET GT SCH (21:00)
[2022-12-23] VITALS (10 sets, daily range): TEMP 97.7–98; O2SAT 97–99
[2022-12-23] MEDS: IPRATROPIUM BROMIDE 0.5 MG/2.5 ML NEBU NEB SCH ×4 (01:12→19:30)
[2022-12-23] MEDS: ALBUTEROL SULFATE 2.5 MG/3 ML NEBU NEB SCH ×4 (01:12→19:30)
[2022-12-23] MEDS: PANTOPRAZOLE ORAL SUSPENSION 40 MG SUSPDR.PKT GT SCH (05:53)
[2022-12-23] MEDS: HYDROGEN PEROXIDE 3% 118 ML BOTTLE TP SCH ×2 (09:00→20:51)
[2022-12-23] MEDS: ACIDOPHILUS/BULGARICUS CHEW TAB GT SCH ×2 (09:31→21:00)
[2022-12-23] MEDS: levETIRAcetam 500 MG/5 ML LIQUID UDC GT SCH ×2 (09:31→21:00)
[2022-12-23] MEDS: METOPROLOL TARTRATE 75 MG GT SCH ×2 (09:31→21:00)
[2022-12-23] MEDS: CLOPIDOGREL 75 MG TABLET GT SCH (09:32)
[2022-12-23] MEDS: REMEDY ESSENTIAL ZINC PASTE 113 GM TP SCH ×4 (09:32→21:00)
[2022-12-23] MEDS: NEOMY/BACITRA/POLYMYXIN B OINT UD PACKET TP SCH ×4 (09:32→21:00)
[2022-12-23] MEDS: ENOXAPARIN SODIUM 40 MG/0.4 ML DISP.SYRIN SQ SCH (21:00)
[2022-12-23] MEDS: ASCORBIC ACID 500 MG TABLET GT SCH (21:00)
[2022-12-24] VITALS (10 sets, daily range): TEMP 97.7–98.3; O2SAT 97–99
[2022-12-24] MEDS: ALBUTEROL SULFATE 2.5 MG/3 ML NEBU NEB SCH ×4 (02:15→19:52)
[2022-12-24] MEDS: IPRATROPIUM BROMIDE 0.5 MG/2.5 ML NEBU NEB SCH ×4 (02:15→19:52)
[2022-12-24] MEDS: JEVITY 1.2 1000 ML LIQUID GT PRN ×2 (04:14→22:10)
[2022-12-24] MEDS: PANTOPRAZOLE ORAL SUSPENSION 40 MG SUSPDR.PKT GT SCH (06:05)
[2022-12-24] MEDS: REMEDY ESSENTIAL ZINC PASTE 113 GM TP SCH ×4 (09:00→21:00)
[2022-12-24] MEDS: NEOMY/BACITRA/POLYMYXIN B OINT UD PACKET TP SCH ×4 (09:00→21:00)
[2022-12-24] MEDS: ACIDOPHILUS/BULGARICUS CHEW TAB GT SCH ×2 (09:17→21:00)
[2022-12-24] MEDS: levETIRAcetam 500 MG/5 ML LIQUID UDC GT SCH ×2 (09:17→21:00)
[2022-12-24] MEDS: METOPROLOL TARTRATE 75 MG GT SCH ×2 (09:19→21:00)
[2022-12-24] MEDS: CLOPIDOGREL 75 MG TABLET GT SCH (09:19)
[2022-12-24] MEDS: HYDROGEN PEROXIDE 3% 118 ML BOTTLE TP SCH ×2 (09:26→21:00)
[2022-12-24] MEDS: ENOXAPARIN SODIUM 40 MG/0.4 ML DISP.SYRIN SQ SCH (21:00)
[2022-12-24] MEDS: ASCORBIC ACID 500 MG TABLET GT SCH (21:00)
[2022-12-25] VITALS (10 sets, daily range): TEMP 98.6; O2SAT 99
[2022-12-25] MEDS: ALBUTEROL SULFATE 2.5 MG/3 ML NEBU NEB SCH ×4 (01:24→19:22)
[2022-12-25] MEDS: IPRATROPIUM BROMIDE 0.5 MG/2.5 ML NEBU NEB SCH ×4 (01:26→19:22)
[2022-12-25] MEDS: PANTOPRAZOLE ORAL SUSPENSION 40 MG SUSPDR.PKT GT SCH (06:16)
[2022-12-25] MEDS: NEOMY/BACITRA/POLYMYXIN B OINT UD PACKET TP SCH ×4 (09:00→21:50)
[2022-12-25] MEDS: ACIDOPHILUS/BULGARICUS CHEW TAB GT SCH ×2 (09:15→21:49)
[2022-12-25] MEDS: levETIRAcetam 500 MG/5 ML LIQUID UDC GT SCH ×2 (09:16→21:49)
[2022-12-25] MEDS: METOPROLOL TARTRATE 75 MG GT SCH ×2 (09:16→21:49)
[2022-12-25] MEDS: REMEDY ESSENTIAL ZINC PASTE 113 GM TP SCH ×4 (09:17→21:50)
[2022-12-25] MEDS: CLOPIDOGREL 75 MG TABLET GT SCH (09:17)
[2022-12-25] MEDS: HYDROGEN PEROXIDE 3% 118 ML BOTTLE TP SCH ×2 (09:41→19:22)
[2022-12-25] MEDS: JEVITY 1.2 1000 ML LIQUID GT PRN (18:08)
[2022-12-25] MEDS: ENOXAPARIN SODIUM 40 MG/0.4 ML DISP.SYRIN SQ SCH (21:49)
[2022-12-25] MEDS: ASCORBIC ACID 500 MG TABLET GT SCH (21:49)
[2022-12-26] VITALS (13 sets, daily range): TEMP 98–99.1; O2SAT 99
[2022-12-26] MEDS: ALBUTEROL SULFATE 2.5 MG/3 ML NEBU NEB SCH ×4 (00:37→19:30)
[2022-12-26] MEDS: IPRATROPIUM BROMIDE 0.5 MG/2.5 ML NEBU NEB SCH ×4 (00:37→19:30)
[2022-12-26] MEDS: PANTOPRAZOLE ORAL SUSPENSION 40 MG SUSPDR.PKT GT SCH (05:49)
[2022-12-26] MEDS: ACIDOPHILUS/BULGARICUS CHEW TAB GT SCH ×2 (08:20→21:00)
[2022-12-26] MEDS: levETIRAcetam 500 MG/5 ML LIQUID UDC GT SCH ×2 (08:21→21:00)
[2022-12-26] MEDS: METOPROLOL TARTRATE 75 MG GT SCH ×2 (08:22→21:00)
[2022-12-26] MEDS: CLOPIDOGREL 75 MG TABLET GT SCH (08:23)
[2022-12-26] MEDS: NEOMY/BACITRA/POLYMYXIN B OINT UD PACKET TP SCH ×4 (08:23→21:00)
[2022-12-26] MEDS: REMEDY ESSENTIAL ZINC PASTE 113 GM TP SCH ×4 (08:23→21:00)
[2022-12-26] MEDS: JEVITY 1.2 1000 ML LIQUID GT PRN (12:20)
[2022-12-26] MEDS: HYDROGEN PEROXIDE 3% 118 ML BOTTLE TP SCH ×2 (13:55→23:27)
[2022-12-26] MEDS: ASCORBIC ACID 500 MG TABLET GT SCH (21:00)
[2022-12-26] MEDS: ENOXAPARIN SODIUM 40 MG/0.4 ML DISP.SYRIN SQ SCH (21:00)
[2022-12-27] VITALS (12 sets, daily range): TEMP 98.4–98.5; O2SAT 99
[2022-12-27] MEDS: IPRATROPIUM BROMIDE 0.5 MG/2.5 ML NEBU NEB SCH ×4 (03:02→21:16)
[2022-12-27] MEDS: ALBUTEROL SULFATE 2.5 MG/3 ML NEBU NEB SCH ×4 (03:03→21:17)
[2022-12-27] MEDS: PANTOPRAZOLE ORAL SUSPENSION 40 MG SUSPDR.PKT GT SCH (05:15)
[2022-12-27] MEDS: JEVITY 1.2 1000 ML LIQUID GT PRN (05:16)
[2022-12-27] MEDS: ACIDOPHILUS/BULGARICUS CHEW TAB GT SCH ×2 (09:03→20:51)
[2022-12-27] MEDS: levETIRAcetam 500 MG/5 ML LIQUID UDC GT SCH ×2 (09:03→20:51)
[2022-12-27] MEDS: CLOPIDOGREL 75 MG TABLET GT SCH (09:03)
[2022-12-27] MEDS: METOPROLOL TARTRATE 75 MG GT SCH ×2 (09:03→20:52)
[2022-12-27] MEDS: REMEDY ESSENTIAL ZINC PASTE 113 GM TP SCH ×4 (09:04→20:54)
[2022-12-27] MEDS: NEOMY/BACITRA/POLYMYXIN B OINT UD PACKET TP SCH ×4 (09:04→20:54)
[2022-12-27] MEDS: HYDROGEN PEROXIDE 3% 118 ML BOTTLE TP SCH ×2 (09:29→21:17)
[2022-12-27] MEDS: ASCORBIC ACID 500 MG TABLET GT SCH (20:52)
[2022-12-27] MEDS: ENOXAPARIN SODIUM 40 MG/0.4 ML DISP.SYRIN SQ SCH (20:53)
[2022-12-27] MEDS: COLLAGENASE OINT 30 GM TUBE TP SCH (20:54)
[2022-12-28] VITALS (11 sets, daily range): TEMP 97–98.5; O2SAT 99
[2022-12-28] MEDS: IPRATROPIUM BROMIDE 0.5 MG/2.5 ML NEBU NEB SCH ×4 (04:22→19:40)
[2022-12-28] MEDS: ALBUTEROL SULFATE 2.5 MG/3 ML NEBU NEB SCH ×4 (04:23→19:40)
[2022-12-28] MEDS: PANTOPRAZOLE ORAL SUSPENSION 40 MG SUSPDR.PKT GT SCH (05:22)
[2022-12-28] MEDS: ACIDOPHILUS/BULGARICUS CHEW TAB GT SCH ×2 (09:11→20:52)
[2022-12-28] MEDS: levETIRAcetam 500 MG/5 ML LIQUID UDC GT SCH ×2 (09:11→20:52)
[2022-12-28] MEDS: NEOMY/BACITRA/POLYMYXIN B OINT UD PACKET TP SCH ×2 (09:12→09:13)
[2022-12-28] MEDS: HYDROGEN PEROXIDE 3% 118 ML BOTTLE TP SCH ×2 (09:12→21:00)
[2022-12-28] MEDS: METOPROLOL TARTRATE 75 MG GT SCH ×2 (09:12→20:53)
[2022-12-28] MEDS: CLOPIDOGREL 75 MG TABLET GT SCH (09:12)
[2022-12-28] MEDS: REMEDY ESSENTIAL ZINC PASTE 113 GM TP SCH ×4 (09:12→20:54)
[2022-12-28] MEDS: ASCORBIC ACID 500 MG TABLET GT SCH (20:54)
[2022-12-28] MEDS: COLLAGENASE OINT 30 GM TUBE TP SCH (20:54)
[2022-12-28] MEDS: ENOXAPARIN SODIUM 40 MG/0.4 ML DISP.SYRIN SQ SCH (20:54)
[2022-12-29] VITALS (9 sets, daily range): TEMP 98.8; O2SAT 99
[2022-12-29] MEDS: ALBUTEROL SULFATE 2.5 MG/3 ML NEBU NEB SCH ×4 (01:18→19:10)
[2022-12-29] MEDS: IPRATROPIUM BROMIDE 0.5 MG/2.5 ML NEBU NEB SCH ×4 (01:18→19:10)
[2022-12-29] MEDS: JEVITY 1.2 1000 ML LIQUID GT PRN (02:34)
[2022-12-29] MEDS: PANTOPRAZOLE ORAL SUSPENSION 40 MG SUSPDR.PKT GT SCH (05:42)
[2022-12-29] MEDS: levETIRAcetam 500 MG/5 ML LIQUID UDC GT SCH ×2 (09:00→21:00)
[2022-12-29] MEDS: METOPROLOL TARTRATE 75 MG GT SCH ×2 (09:00→21:00)
[2022-12-29] MEDS: CLOPIDOGREL 75 MG TABLET GT SCH (09:00)
[2022-12-29] MEDS: ACIDOPHILUS/BULGARICUS CHEW TAB GT SCH ×2 (09:00→21:00)
[2022-12-29] MEDS: HYDROGEN PEROXIDE 3% 118 ML BOTTLE TP SCH ×2 (09:00→19:10)
[2022-12-29] MEDS: REMEDY ESSENTIAL ZINC PASTE 113 GM TP SCH ×4 (09:00→21:00)
[2022-12-29] MEDS: ASCORBIC ACID 500 MG TABLET GT SCH (21:00)
[2022-12-29] MEDS: NEOMY/BACITRA/POLYMYXIN B OINT UD PACKET TP SCH ×2 (21:00)
[2022-12-29] MEDS: COLLAGENASE OINT 30 GM TUBE TP SCH (21:00)
[2022-12-29] MEDS: ENOXAPARIN SODIUM 40 MG/0.4 ML DISP.SYRIN SQ SCH (22:47)
[2022-12-30] VITALS (11 sets, daily range): TEMP 98.4–99.4; O2SAT 99
[2022-12-30] MEDS: ALBUTEROL SULFATE 2.5 MG/3 ML NEBU NEB SCH ×4 (00:59→19:40)
[2022-12-30] MEDS: IPRATROPIUM BROMIDE 0.5 MG/2.5 ML NEBU NEB SCH ×4 (00:59→19:40)
[2022-12-30] MEDS: PANTOPRAZOLE ORAL SUSPENSION 40 MG SUSPDR.PKT GT SCH (05:44)
[2022-12-30] MEDS: METOPROLOL TARTRATE 75 MG GT SCH ×2 (09:00→21:20)
[2022-12-30] MEDS: NEOMY/BACITRA/POLYMYXIN B OINT UD PACKET TP SCH ×4 (09:37→21:22)
[2022-12-30] MEDS: REMEDY ESSENTIAL ZINC PASTE 113 GM TP SCH ×4 (09:37→21:22)
[2022-12-30] MEDS: HYDROGEN PEROXIDE 3% 118 ML BOTTLE TP SCH ×2 (09:37→21:05)
[2022-12-30] MEDS: CLOPIDOGREL 75 MG TABLET GT SCH (09:39)
[2022-12-30] MEDS: levETIRAcetam 500 MG/5 ML LIQUID UDC GT SCH ×2 (09:39→21:19)
[2022-12-30] MEDS: ACIDOPHILUS/BULGARICUS CHEW TAB GT SCH ×2 (09:39→21:19)
[2022-12-30] MEDS: ENOXAPARIN SODIUM 40 MG/0.4 ML DISP.SYRIN SQ SCH (21:21)
[2022-12-30] MEDS: ASCORBIC ACID 500 MG TABLET GT SCH (21:21)
[2022-12-30] MEDS: COLLAGENASE OINT 30 GM TUBE TP SCH (21:22)
[2022-12-31] VITALS (10 sets, daily range): BP systolic 98; BP diastolic 105; TEMP 98.8–98.9; O2SAT 20–99
[2022-12-31] MEDS: IPRATROPIUM BROMIDE 0.5 MG/2.5 ML NEBU NEB SCH ×4 (01:10→19:10)
[2022-12-31] MEDS: ALBUTEROL SULFATE 2.5 MG/3 ML NEBU NEB SCH ×4 (01:10→19:10)
[2022-12-31] MEDS: PANTOPRAZOLE ORAL SUSPENSION 40 MG SUSPDR.PKT GT SCH (06:36)
[2022-12-31] MEDS: JEVITY 1.2 1000 ML LIQUID GT PRN ×2 (06:36→23:22)
[2022-12-31] MEDS: levETIRAcetam 500 MG/5 ML LIQUID UDC GT SCH ×2 (09:12→21:02)
[2022-12-31] MEDS: ACIDOPHILUS/BULGARICUS CHEW TAB GT SCH ×2 (09:12→21:02)
[2022-12-31] MEDS: METOPROLOL TARTRATE 75 MG GT SCH ×2 (09:14→21:03)
[2022-12-31] MEDS: REMEDY ESSENTIAL ZINC PASTE 113 GM TP SCH ×4 (09:17→21:03)
[2022-12-31] MEDS: CLOPIDOGREL 75 MG TABLET GT SCH (09:17)
[2022-12-31] MEDS: NEOMY/BACITRA/POLYMYXIN B OINT UD PACKET TP SCH ×4 (09:17→21:03)
[2022-12-31] MEDS: HYDROGEN PEROXIDE 3% 118 ML BOTTLE TP SCH ×2 (09:31→19:10)
[2022-12-31] MEDS: ENOXAPARIN SODIUM 40 MG/0.4 ML DISP.SYRIN SQ SCH (21:03)
[2022-12-31] MEDS: ASCORBIC ACID 500 MG TABLET GT SCH (21:03)
[2022-12-31] MEDS: COLLAGENASE OINT 30 GM TUBE TP SCH (21:03)
[2023-01-01] VITALS (10 sets, daily range): TEMP 98.4–98.7; O2SAT 98–99
[2023-01-01] MEDS: ALBUTEROL SULFATE 2.5 MG/3 ML NEBU NEB SCH ×4 (01:18→19:02)
[2023-01-01] MEDS: IPRATROPIUM BROMIDE 0.5 MG/2.5 ML NEBU NEB SCH ×4 (01:18→19:02)
[2023-01-01] MEDS: PANTOPRAZOLE ORAL SUSPENSION 40 MG SUSPDR.PKT GT SCH (05:13)
[2023-01-01] MEDS: HYDROGEN PEROXIDE 3% 118 ML BOTTLE TP SCH ×2 (07:40→19:02)
[2023-01-01] MEDS: ACIDOPHILUS/BULGARICUS CHEW TAB GT SCH ×2 (09:48→21:13)
[2023-01-01] MEDS: levETIRAcetam 500 MG/5 ML LIQUID UDC GT SCH ×2 (09:49→21:13)
[2023-01-01] MEDS: METOPROLOL TARTRATE 75 MG GT SCH ×2 (09:52→21:14)
[2023-01-01] MEDS: CLOPIDOGREL 75 MG TABLET GT SCH (09:53)
[2023-01-01] MEDS: REMEDY ESSENTIAL ZINC PASTE 113 GM TP SCH ×4 (09:53→21:15)
[2023-01-01] MEDS: NEOMY/BACITRA/POLYMYXIN B OINT UD PACKET TP SCH ×4 (09:54→21:00)
[2023-01-01] MEDS: JEVITY 1.2 1000 ML LIQUID GT PRN (18:55)
[2023-01-01] MEDS: COLLAGENASE OINT 30 GM TUBE TP SCH (21:00)
[2023-01-01] MEDS: ASCORBIC ACID 500 MG TABLET GT SCH (21:14)
[2023-01-01] MEDS: ENOXAPARIN SODIUM 40 MG/0.4 ML DISP.SYRIN SQ SCH (21:14)
[2023-01-01] MEDS: COLLAGENASE OINT 30 GM TUBE TOP SCH ×2 (23:15)
[2023-01-02] VITALS (11 sets, daily range): TEMP 98.3; O2SAT 98–99
[2023-01-02] MEDS: IPRATROPIUM BROMIDE 0.5 MG/2.5 ML NEBU NEB SCH ×4 (01:18→19:45)
[2023-01-02] MEDS: ALBUTEROL SULFATE 2.5 MG/3 ML NEBU NEB SCH ×4 (01:18→19:45)
[2023-01-02] MEDS: PANTOPRAZOLE ORAL SUSPENSION 40 MG SUSPDR.PKT GT SCH (05:44)
[2023-01-02] MEDS: levETIRAcetam 500 MG/5 ML LIQUID UDC GT SCH ×2 (08:46→21:11)
[2023-01-02] MEDS: ACIDOPHILUS/BULGARICUS CHEW TAB GT SCH ×2 (08:46→21:11)
[2023-01-02] MEDS: METOPROLOL TARTRATE 75 MG GT SCH ×2 (08:49→21:12)
[2023-01-02] MEDS: CLOPIDOGREL 75 MG TABLET GT SCH (08:50)
[2023-01-02] MEDS: REMEDY ESSENTIAL ZINC PASTE 113 GM TP SCH ×4 (08:52→21:12)
[2023-01-02] MEDS: COLLAGENASE OINT 30 GM TUBE TOP SCH ×4 (08:52→21:12)
[2023-01-02] MEDS: HYDROGEN PEROXIDE 3% 118 ML BOTTLE TP SCH ×2 (09:17→21:00)
[2023-01-02] MEDS: JEVITY 1.2 1000 ML LIQUID GT PRN (14:38)
[2023-01-02] MEDS: ENOXAPARIN SODIUM 40 MG/0.4 ML DISP.SYRIN SQ SCH (21:00)
[2023-01-02] MEDS: ASCORBIC ACID 500 MG TABLET GT SCH (21:12)
[2023-01-02] MEDS: COLLAGENASE OINT 30 GM TUBE TP SCH (21:13)
[2023-01-03] VITALS (10 sets, daily range): TEMP 97.9–98.8; O2SAT 99
[2023-01-03] MEDS: IPRATROPIUM BROMIDE 0.5 MG/2.5 ML NEBU NEB SCH ×4 (01:20→20:16)
[2023-01-03] MEDS: ALBUTEROL SULFATE 2.5 MG/3 ML NEBU NEB SCH ×4 (01:20→20:16)
[2023-01-03] MEDS: PANTOPRAZOLE ORAL SUSPENSION 40 MG SUSPDR.PKT GT SCH (05:09)
[2023-01-03] MEDS: JEVITY 1.2 1000 ML LIQUID GT PRN (05:10)
[2023-01-03] MEDS: COLLAGENASE OINT 30 GM TUBE TOP SCH ×4 (09:40→21:10)
[2023-01-03] MEDS: ACIDOPHILUS/BULGARICUS CHEW TAB GT SCH ×2 (09:40→21:09)
[2023-01-03] MEDS: METOPROLOL TARTRATE 75 MG GT SCH ×2 (09:40→21:09)
[2023-01-03] MEDS: CLOPIDOGREL 75 MG TABLET GT SCH (09:40)
[2023-01-03] MEDS: REMEDY ESSENTIAL ZINC PASTE 113 GM TP SCH ×4 (09:40→21:10)
[2023-01-03] MEDS: levETIRAcetam 500 MG/5 ML LIQUID UDC GT SCH ×2 (09:40→21:09)
[2023-01-03] MEDS: HYDROGEN PEROXIDE 3% 118 ML BOTTLE TP SCH ×2 (10:40→20:16)
[2023-01-03] MEDS: ASCORBIC ACID 500 MG TABLET GT SCH (21:09)
[2023-01-03] MEDS: COLLAGENASE OINT 30 GM TUBE TP SCH (21:10)
[2023-01-03] MEDS: ENOXAPARIN SODIUM 40 MG/0.4 ML DISP.SYRIN SQ SCH (21:10)
[2023-01-04] VITALS (10 sets, daily range): TEMP 97.3–97.7; O2SAT 99
[2023-01-04] MEDS: IPRATROPIUM BROMIDE 0.5 MG/2.5 ML NEBU NEB SCH ×4 (02:27→19:38)
[2023-01-04] MEDS: ALBUTEROL SULFATE 2.5 MG/3 ML NEBU NEB SCH ×4 (02:27→19:38)
[2023-01-04] MEDS: PANTOPRAZOLE ORAL SUSPENSION 40 MG SUSPDR.PKT GT SCH (05:34)
[2023-01-04] MEDS: HYDROGEN PEROXIDE 3% 118 ML BOTTLE TP SCH ×2 (07:15→21:00)
[2023-01-04] MEDS: ACIDOPHILUS/BULGARICUS CHEW TAB GT SCH ×2 (09:46→21:00)
[2023-01-04] MEDS: levETIRAcetam 500 MG/5 ML LIQUID UDC GT SCH ×2 (09:46→21:00)
[2023-01-04] MEDS: REMEDY ESSENTIAL ZINC PASTE 113 GM TP SCH ×4 (09:46→21:00)
[2023-01-04] MEDS: COLLAGENASE OINT 30 GM TUBE TOP SCH ×4 (09:46→21:00)
[2023-01-04] MEDS: METOPROLOL TARTRATE 75 MG GT SCH ×2 (09:46→21:00)
[2023-01-04] MEDS: CLOPIDOGREL 75 MG TABLET GT SCH (09:46)
[2023-01-04] MEDS: ASCORBIC ACID 500 MG TABLET GT SCH (21:00)
[2023-01-04] MEDS: ENOXAPARIN SODIUM 40 MG/0.4 ML DISP.SYRIN SQ SCH (21:00)
[2023-01-04] MEDS: COLLAGENASE OINT 30 GM TUBE TP SCH (21:00)
[2023-01-05] VITALS (11 sets, daily range): TEMP 98.1–98.3; O2SAT 98–99
[2023-01-05] MEDS: IPRATROPIUM BROMIDE 0.5 MG/2.5 ML NEBU NEB SCH ×4 (01:45→21:19)
[2023-01-05] MEDS: ALBUTEROL SULFATE 2.5 MG/3 ML NEBU NEB SCH ×4 (01:45→21:20)
[2023-01-05] MEDS: JEVITY 1.2 1000 ML LIQUID GT PRN ×2 (01:56→17:58)
[2023-01-05] MEDS: PANTOPRAZOLE ORAL SUSPENSION 40 MG SUSPDR.PKT GT SCH (05:27)
[2023-01-05] MEDS: HYDROGEN PEROXIDE 3% 118 ML BOTTLE TP SCH ×2 (07:33→21:20)
[2023-01-05] MEDS: ACIDOPHILUS/BULGARICUS CHEW TAB GT SCH ×2 (08:28→21:44)
[2023-01-05] MEDS: levETIRAcetam 500 MG/5 ML LIQUID UDC GT SCH ×2 (08:28→21:44)
[2023-01-05] MEDS: CLOPIDOGREL 75 MG TABLET GT SCH (08:32)
[2023-01-05] MEDS: METOPROLOL TARTRATE 75 MG GT SCH ×2 (08:32→21:45)
[2023-01-05] MEDS: REMEDY ESSENTIAL ZINC PASTE 113 GM TP SCH ×4 (08:33→21:46)
[2023-01-05] MEDS: COLLAGENASE OINT 30 GM TUBE TOP SCH ×4 (09:00→21:46)
[2023-01-05] MEDS: TRIAMCINOLONE ACET 0.1% CREAM 15 GM TUBE TP SCH ×2 (10:00→21:46)
[2023-01-05] MEDS: ENOXAPARIN SODIUM 40 MG/0.4 ML DISP.SYRIN SQ SCH (21:45)
[2023-01-05] MEDS: ASCORBIC ACID 500 MG TABLET GT SCH (21:45)
[2023-01-05] MEDS: COLLAGENASE OINT 30 GM TUBE TP SCH (21:46)
[2023-01-06] VITALS (11 sets, daily range): TEMP 98.8–99; O2SAT 99
[2023-01-06] MEDS: IPRATROPIUM BROMIDE 0.5 MG/2.5 ML NEBU NEB SCH ×4 (00:35→19:24)
[2023-01-06] MEDS: ALBUTEROL SULFATE 2.5 MG/3 ML NEBU NEB SCH ×4 (00:35→19:24)
[2023-01-06] MEDS: PANTOPRAZOLE ORAL SUSPENSION 40 MG SUSPDR.PKT GT SCH (05:58)
[2023-01-06] MEDS: HYDROGEN PEROXIDE 3% 118 ML BOTTLE TP SCH ×2 (09:00→19:24)
[2023-01-06] MEDS: METOPROLOL TARTRATE 75 MG GT SCH ×2 (09:00→21:32)
[2023-01-06] MEDS: ACIDOPHILUS/BULGARICUS CHEW TAB GT SCH ×2 (09:00→21:31)
[2023-01-06] MEDS: CLOPIDOGREL 75 MG TABLET GT SCH (09:00)
[2023-01-06] MEDS: REMEDY ESSENTIAL ZINC PASTE 113 GM TP SCH ×4 (09:00→21:33)
[2023-01-06] MEDS: COLLAGENASE OINT 30 GM TUBE TOP SCH ×4 (09:00→21:33)
[2023-01-06] MEDS: levETIRAcetam 500 MG/5 ML LIQUID UDC GT SCH ×2 (09:00→21:31)
[2023-01-06] MEDS: TRIAMCINOLONE ACET 0.1% CREAM 15 GM TUBE TP SCH ×2 (09:00→21:33)
[2023-01-06] MEDS: JEVITY 1.2 1000 ML LIQUID GT PRN (11:42)
[2023-01-06] MEDS: ENOXAPARIN SODIUM 40 MG/0.4 ML DISP.SYRIN SQ SCH (21:32)
[2023-01-06] MEDS: ASCORBIC ACID 500 MG TABLET GT SCH (21:32)
[2023-01-06] MEDS: COLLAGENASE OINT 30 GM TUBE TP SCH (21:33)
[2023-01-07] VITALS (10 sets, daily range): TEMP 98–98.8; O2SAT 99
[2023-01-07] MEDS: JEVITY 1.2 1000 ML LIQUID GT PRN ×2 (01:49→18:38)
[2023-01-07] MEDS: IPRATROPIUM BROMIDE 0.5 MG/2.5 ML NEBU NEB SCH ×4 (02:10→19:11)
[2023-01-07] MEDS: ALBUTEROL SULFATE 2.5 MG/3 ML NEBU NEB SCH ×4 (02:10→19:11)
[2023-01-07] MEDS: PANTOPRAZOLE ORAL SUSPENSION 40 MG SUSPDR.PKT GT SCH (05:55)
[2023-01-07] MEDS: ACIDOPHILUS/BULGARICUS CHEW TAB GT SCH ×2 (08:22→21:10)
[2023-01-07] MEDS: levETIRAcetam 500 MG/5 ML LIQUID UDC GT SCH ×2 (08:23→21:10)
[2023-01-07] MEDS: METOPROLOL TARTRATE 75 MG GT SCH ×2 (08:25→21:11)
[2023-01-07] MEDS: CLOPIDOGREL 75 MG TABLET GT SCH (08:26)
[2023-01-07] MEDS: TRIAMCINOLONE ACET 0.1% CREAM 15 GM TUBE TP SCH ×2 (08:27→21:12)
[2023-01-07] MEDS: COLLAGENASE OINT 30 GM TUBE TOP SCH ×4 (08:27→21:11)
[2023-01-07] MEDS: REMEDY ESSENTIAL ZINC PASTE 113 GM TP SCH ×4 (08:28→21:12)
[2023-01-07] MEDS: HYDROGEN PEROXIDE 3% 118 ML BOTTLE TP SCH ×2 (08:51→19:11)
[2023-01-07] MEDS: ENOXAPARIN SODIUM 40 MG/0.4 ML DISP.SYRIN SQ SCH (21:11)
[2023-01-07] MEDS: ASCORBIC ACID 500 MG TABLET GT SCH (21:11)
[2023-01-07] MEDS: COLLAGENASE OINT 30 GM TUBE TP SCH (21:12)
[2023-01-08] VITALS (11 sets, daily range): TEMP 98.4–98.7; O2SAT 99
[2023-01-08] MEDS: IPRATROPIUM BROMIDE 0.5 MG/2.5 ML NEBU NEB SCH ×4 (01:09→19:10)
[2023-01-08] MEDS: ALBUTEROL SULFATE 2.5 MG/3 ML NEBU NEB SCH ×4 (01:09→19:11)
[2023-01-08] MEDS: PANTOPRAZOLE ORAL SUSPENSION 40 MG SUSPDR.PKT GT SCH (05:36)
[2023-01-08] MEDS: HYDROGEN PEROXIDE 3% 118 ML BOTTLE TP SCH ×2 (08:00→19:11)
[2023-01-08] MEDS: ACIDOPHILUS/BULGARICUS CHEW TAB GT SCH ×2 (09:45→21:40)
[2023-01-08] MEDS: TRIAMCINOLONE ACET 0.1% CREAM 15 GM TUBE TP SCH ×2 (09:46→21:42)
[2023-01-08] MEDS: METOPROLOL TARTRATE 75 MG GT SCH ×2 (09:46→21:40)
[2023-01-08] MEDS: COLLAGENASE OINT 30 GM TUBE TOP SCH ×4 (09:46→21:42)
[2023-01-08] MEDS: REMEDY ESSENTIAL ZINC PASTE 113 GM TP SCH ×4 (09:46→21:42)
[2023-01-08] MEDS: CLOPIDOGREL 75 MG TABLET GT SCH (09:46)
[2023-01-08] MEDS: levETIRAcetam 500 MG/5 ML LIQUID UDC GT SCH ×2 (09:46→21:40)
[2023-01-08] MEDS: ACETAMINOPHEN 650 MG/20 ML UDC- SA PATIENTS-PAIN ONLY GT PRN (09:47)
[2023-01-08] MEDS: JEVITY 1.2 1000 ML LIQUID GT PRN (09:47)
[2023-01-08] MEDS: ENOXAPARIN SODIUM 40 MG/0.4 ML DISP.SYRIN SQ SCH (21:41)
[2023-01-08] MEDS: ASCORBIC ACID 500 MG TABLET GT SCH (21:41)
[2023-01-08] MEDS: COLLAGENASE OINT 30 GM TUBE TP SCH (21:42)
[2023-01-09] VITALS (10 sets, daily range): TEMP 97.1–98.3; O2SAT 99
[2023-01-09] MEDS: IPRATROPIUM BROMIDE 0.5 MG/2.5 ML NEBU NEB SCH ×4 (01:03→19:58)
[2023-01-09] MEDS: ALBUTEROL SULFATE 2.5 MG/3 ML NEBU NEB SCH ×4 (01:04→19:58)
[2023-01-09] MEDS: JEVITY 1.2 1000 ML LIQUID GT PRN (04:23)
[2023-01-09] MEDS: PANTOPRAZOLE ORAL SUSPENSION 40 MG SUSPDR.PKT GT SCH (05:53)
[2023-01-09] MEDS: HYDROGEN PEROXIDE 3% 118 ML BOTTLE TP SCH ×2 (08:00→21:00)
[2023-01-09] MEDS: ACIDOPHILUS/BULGARICUS CHEW TAB GT SCH ×2 (09:03→20:24)
[2023-01-09] MEDS: levETIRAcetam 500 MG/5 ML LIQUID UDC GT SCH ×2 (09:03→20:24)
[2023-01-09] MEDS: CLOPIDOGREL 75 MG TABLET GT SCH (09:04)
[2023-01-09] MEDS: COLLAGENASE OINT 30 GM TUBE TOP SCH ×4 (09:04→20:25)
[2023-01-09] MEDS: METOPROLOL TARTRATE 75 MG GT SCH ×2 (09:04→20:24)
[2023-01-09] MEDS: REMEDY ESSENTIAL ZINC PASTE 113 GM TP SCH ×4 (09:04→20:25)
[2023-01-09] MEDS: TRIAMCINOLONE ACET 0.1% CREAM 15 GM TUBE TP SCH ×2 (09:04→20:25)
[2023-01-09] MEDS: ASCORBIC ACID 500 MG TABLET GT SCH (20:24)
[2023-01-09] MEDS: COLLAGENASE OINT 30 GM TUBE TP SCH (20:25)
[2023-01-09] MEDS: ENOXAPARIN SODIUM 40 MG/0.4 ML DISP.SYRIN SQ SCH (21:00)
[2023-01-10] VITALS (10 sets, daily range): TEMP 98–98.1; O2SAT 98–99
[2023-01-10] MEDS: IPRATROPIUM BROMIDE 0.5 MG/2.5 ML NEBU NEB SCH ×4 (01:53→19:03)
[2023-01-10] MEDS: ALBUTEROL SULFATE 2.5 MG/3 ML NEBU NEB SCH ×4 (01:54→19:03)
[2023-01-10] MEDS: JEVITY 1.2 1000 ML LIQUID GT PRN ×2 (05:21→14:36)
[2023-01-10] MEDS: PANTOPRAZOLE ORAL SUSPENSION 40 MG SUSPDR.PKT GT SCH (05:22)
[2023-01-10] MEDS: ACIDOPHILUS/BULGARICUS CHEW TAB GT SCH ×2 (09:18→21:00)
[2023-01-10] MEDS: levETIRAcetam 500 MG/5 ML LIQUID UDC GT SCH ×2 (09:19→21:00)
[2023-01-10] MEDS: METOPROLOL TARTRATE 75 MG GT SCH ×2 (09:21→21:00)
[2023-01-10] MEDS: CLOPIDOGREL 75 MG TABLET GT SCH (09:22)
[2023-01-10] MEDS: COLLAGENASE OINT 30 GM TUBE TOP SCH ×4 (09:22→21:00)
[2023-01-10] MEDS: TRIAMCINOLONE ACET 0.1% CREAM 15 GM TUBE TP SCH ×2 (09:23→21:00)
[2023-01-10] MEDS: REMEDY ESSENTIAL ZINC PASTE 113 GM TP SCH ×4 (09:23→21:00)
[2023-01-10] MEDS: HYDROGEN PEROXIDE 3% 118 ML BOTTLE TP SCH ×2 (09:46→19:03)
[2023-01-10] MEDS: ASCORBIC ACID 500 MG TABLET GT SCH (21:00)
[2023-01-10] MEDS: COLLAGENASE OINT 30 GM TUBE TP SCH (21:00)
[2023-01-10] MEDS: ENOXAPARIN SODIUM 40 MG/0.4 ML DISP.SYRIN SQ SCH (23:43)
[2023-01-11] VITALS (10 sets, daily range): TEMP 97.3–98.6; O2SAT 97–99
[2023-01-11] MEDS: IPRATROPIUM BROMIDE 0.5 MG/2.5 ML NEBU NEB SCH ×4 (01:17→19:50)
[2023-01-11] MEDS: ALBUTEROL SULFATE 2.5 MG/3 ML NEBU NEB SCH ×4 (01:17→19:50)
[2023-01-11] MEDS: PANTOPRAZOLE ORAL SUSPENSION 40 MG SUSPDR.PKT GT SCH (06:30)
[2023-01-11] MEDS: COLLAGENASE OINT 30 GM TUBE TOP SCH ×4 (09:00→21:57)
[2023-01-11] MEDS: CLOPIDOGREL 75 MG TABLET GT SCH (09:00)
[2023-01-11] MEDS: levETIRAcetam 500 MG/5 ML LIQUID UDC GT SCH ×2 (09:00→21:54)
[2023-01-11] MEDS: ACIDOPHILUS/BULGARICUS CHEW TAB GT SCH ×2 (09:00→21:54)
[2023-01-11] MEDS: METOPROLOL TARTRATE 75 MG GT SCH ×2 (09:00→21:55)
[2023-01-11] MEDS: TRIAMCINOLONE ACET 0.1% CREAM 15 GM TUBE TP SCH ×2 (09:00→21:57)
[2023-01-11] MEDS: REMEDY ESSENTIAL ZINC PASTE 113 GM TP SCH ×4 (09:00→21:57)
[2023-01-11] MEDS: HYDROGEN PEROXIDE 3% 118 ML BOTTLE TP SCH ×2 (09:32→21:00)
[2023-01-11] MEDS: JEVITY 1.2 1000 ML LIQUID GT PRN (11:29)
[2023-01-11] MEDS: ENOXAPARIN SODIUM 40 MG/0.4 ML DISP.SYRIN SQ SCH (21:00)
[2023-01-11] MEDS: ASCORBIC ACID 500 MG TABLET GT SCH (21:55)
[2023-01-11] MEDS: COLLAGENASE OINT 30 GM TUBE TP SCH (21:57)
[2023-01-12] VITALS (8 sets, daily range): TEMP 97.6–98.9; O2SAT 97–99
[2023-01-12] MEDS: PANTOPRAZOLE ORAL SUSPENSION 40 MG SUSPDR.PKT GT SCH (05:49)
[2023-01-12] MEDS: JEVITY 1.2 1000 ML LIQUID GT PRN ×2 (05:50→19:03)
[2023-01-12] MEDS: IPRATROPIUM BROMIDE 0.5 MG/2.5 ML NEBU NEB SCH ×3 (08:05→19:33)
[2023-01-12] MEDS: HYDROGEN PEROXIDE 3% 118 ML BOTTLE TP SCH ×2 (08:05→21:35)
[2023-01-12] MEDS: ALBUTEROL SULFATE 2.5 MG/3 ML NEBU NEB SCH ×3 (08:05→19:33)
[2023-01-12] MEDS: levETIRAcetam 500 MG/5 ML LIQUID UDC GT SCH ×2 (08:39→20:34)
[2023-01-12] MEDS: ACIDOPHILUS/BULGARICUS CHEW TAB GT SCH ×2 (08:39→20:34)
[2023-01-12] MEDS: CLOPIDOGREL 75 MG TABLET GT SCH (08:41)
[2023-01-12] MEDS: METOPROLOL TARTRATE 75 MG GT SCH ×2 (08:41→20:35)
[2023-01-12] MEDS: COLLAGENASE OINT 30 GM TUBE TOP SCH ×4 (08:42→20:40)
[2023-01-12] MEDS: REMEDY ESSENTIAL ZINC PASTE 113 GM TP SCH ×4 (08:42→20:40)
[2023-01-12] MEDS: TRIAMCINOLONE ACET 0.1% CREAM 15 GM TUBE TP SCH ×3 (08:42→20:40)
[2023-01-12] MEDS: ACETAMINOPHEN 650 MG/20 ML UDC- SA PATIENTS-PAIN ONLY GT PRN (13:52)
[2023-01-12] MEDS: ASCORBIC ACID 500 MG TABLET GT SCH (20:38)
[2023-01-12] MEDS: ENOXAPARIN SODIUM 40 MG/0.4 ML DISP.SYRIN SQ SCH (20:39)
[2023-01-12] MEDS: COLLAGENASE OINT 30 GM TUBE TP SCH (20:41)
[2023-01-13] VITALS (10 sets, daily range): TEMP 98.5; O2SAT 97–99
[2023-01-13] MEDS: ALBUTEROL SULFATE 2.5 MG/3 ML NEBU NEB SCH ×4 (01:11→19:18)
[2023-01-13] MEDS: IPRATROPIUM BROMIDE 0.5 MG/2.5 ML NEBU NEB SCH ×4 (01:11→19:18)
[2023-01-13] MEDS: PANTOPRAZOLE ORAL SUSPENSION 40 MG SUSPDR.PKT GT SCH (05:24)
[2023-01-13] MEDS: levETIRAcetam 500 MG/5 ML LIQUID UDC GT SCH ×2 (08:53→21:49)
[2023-01-13] MEDS: ACIDOPHILUS/BULGARICUS CHEW TAB GT SCH ×2 (08:53→21:47)
[2023-01-13] MEDS: METOPROLOL TARTRATE 75 MG GT SCH ×2 (08:56→21:49)
[2023-01-13] MEDS: CLOPIDOGREL 75 MG TABLET GT SCH (08:56)
[2023-01-13] MEDS: COLLAGENASE OINT 30 GM TUBE TOP SCH ×4 (08:56→21:51)
[2023-01-13] MEDS: TRIAMCINOLONE ACET 0.1% CREAM 15 GM TUBE TP SCH ×4 (08:57→21:51)
[2023-01-13] MEDS: REMEDY ESSENTIAL ZINC PASTE 113 GM TP SCH ×4 (08:57→21:52)
[2023-01-13] MEDS: HYDROGEN PEROXIDE 3% 118 ML BOTTLE TP SCH ×2 (09:00→20:33)
[2023-01-13] MEDS: JEVITY 1.2 1000 ML LIQUID GT PRN (18:25)
[2023-01-13] MEDS: ASCORBIC ACID 500 MG TABLET GT SCH (21:50)
[2023-01-13] MEDS: ENOXAPARIN SODIUM 40 MG/0.4 ML DISP.SYRIN SQ SCH (21:50)
[2023-01-13] MEDS: COLLAGENASE OINT 30 GM TUBE TP SCH (21:52)
[2023-01-14] VITALS (11 sets, daily range): TEMP 98.1–99; O2SAT 98–99
[2023-01-14] MEDS: ALBUTEROL SULFATE 2.5 MG/3 ML NEBU NEB SCH ×4 (01:30→14:26)
[2023-01-14] MEDS: IPRATROPIUM BROMIDE 0.5 MG/2.5 ML NEBU NEB SCH ×3 (01:30→14:16)
[2023-01-14] MEDS: HYDROCODONE/APAP 10-325 MG TABLET GT PRN (05:30)
[2023-01-14] MEDS: JEVITY 1.2 1000 ML LIQUID GT PRN (06:00)
[2023-01-14] MEDS: PANTOPRAZOLE ORAL SUSPENSION 40 MG SUSPDR.PKT GT SCH (06:00)
[2023-01-14] MEDS: ACIDOPHILUS/BULGARICUS CHEW TAB GT SCH ×2 (08:20→20:49)
[2023-01-14] MEDS: levETIRAcetam 500 MG/5 ML LIQUID UDC GT SCH ×2 (08:20→20:50)
[2023-01-14] MEDS: METOPROLOL TARTRATE 75 MG GT SCH ×2 (08:20→21:10)
[2023-01-14] MEDS: REMEDY ESSENTIAL ZINC PASTE 113 GM TP SCH ×4 (08:23→20:52)
[2023-01-14] MEDS: TRIAMCINOLONE ACET 0.1% CREAM 15 GM TUBE TP SCH ×4 (08:23→20:52)
[2023-01-14] MEDS: COLLAGENASE OINT 30 GM TUBE TOP SCH ×4 (08:23→20:52)
[2023-01-14] MEDS: CLOPIDOGREL 75 MG TABLET GT SCH (08:23)
[2023-01-14] MEDS: HYDROGEN PEROXIDE 3% 118 ML BOTTLE TP SCH ×2 (09:00→21:33)
[2023-01-14] MEDS: ENOXAPARIN SODIUM 40 MG/0.4 ML DISP.SYRIN SQ SCH (20:51)
[2023-01-14] MEDS: ASCORBIC ACID 500 MG TABLET GT SCH (20:51)
[2023-01-14] MEDS: COLLAGENASE OINT 30 GM TUBE TP SCH (20:52)
[2023-01-15] VITALS (12 sets, daily range): TEMP 97.4–101.2; O2SAT 97–99
[2023-01-15] MEDS: ALBUTEROL SULFATE 2.5 MG/3 ML NEBU NEB SCH ×4 (00:31→20:00)
[2023-01-15] MEDS: IPRATROPIUM BROMIDE 0.5 MG/2.5 ML NEBU NEB SCH ×4 (00:31→20:00)
[2023-01-15] MEDS: JEVITY 1.2 1000 ML LIQUID GT PRN ×2 (01:35→17:38)
[2023-01-15] MEDS: PANTOPRAZOLE ORAL SUSPENSION 40 MG SUSPDR.PKT GT SCH (05:42)
[2023-01-15] MEDS: ACIDOPHILUS/BULGARICUS CHEW TAB GT SCH ×2 (09:08→20:29)
[2023-01-15] MEDS: levETIRAcetam 500 MG/5 ML LIQUID UDC GT SCH ×2 (09:10→20:29)
[2023-01-15] MEDS: METOPROLOL TARTRATE 75 MG GT SCH ×2 (09:10→20:32)
[2023-01-15] MEDS: REMEDY ESSENTIAL ZINC PASTE 113 GM TP SCH ×4 (09:11→20:32)
[2023-01-15] MEDS: TRIAMCINOLONE ACET 0.1% CREAM 15 GM TUBE TP SCH ×4 (09:11→20:32)
[2023-01-15] MEDS: CLOPIDOGREL 75 MG TABLET GT SCH (09:11)
[2023-01-15] MEDS: COLLAGENASE OINT 30 GM TUBE TOP SCH ×4 (09:11→20:32)
[2023-01-15] MEDS: HYDROGEN PEROXIDE 3% 118 ML BOTTLE TP SCH ×2 (10:30→21:03)
[2023-01-15] MEDS: ASCORBIC ACID 500 MG TABLET GT SCH (20:32)
[2023-01-15] MEDS: COLLAGENASE OINT 30 GM TUBE TP SCH (20:32)
[2023-01-15] MEDS: HYDROCODONE/APAP 10-325 MG TABLET GT PRN (20:33)
[2023-01-15] MEDS: ENOXAPARIN SODIUM 40 MG/0.4 ML DISP.SYRIN SQ SCH (20:59)
[2023-01-16] VITALS (12 sets, daily range): TEMP 98.2–100.7; O2SAT 97–99
[2023-01-16] MEDS: IPRATROPIUM BROMIDE 0.5 MG/2.5 ML NEBU NEB SCH ×4 (01:30→19:36)
[2023-01-16] MEDS: ALBUTEROL SULFATE 2.5 MG/3 ML NEBU NEB SCH ×4 (01:30→19:36)
[2023-01-16] MEDS: PANTOPRAZOLE ORAL SUSPENSION 40 MG SUSPDR.PKT GT SCH (06:19)
[2023-01-16] MEDS: ACETAMINOPHEN 650 MG/20 ML UDC- SA PATIENTS-PAIN ONLY GT PRN ×2 (06:20→14:08)
[2023-01-16] MEDS: HYDROGEN PEROXIDE 3% 118 ML BOTTLE TP SCH ×2 (07:22→19:36)
[2023-01-16] MEDS: ACIDOPHILUS/BULGARICUS CHEW TAB GT SCH ×2 (09:14→21:00)
[2023-01-16] MEDS: levETIRAcetam 500 MG/5 ML LIQUID UDC GT SCH ×2 (09:14→21:00)
[2023-01-16] MEDS: TRIAMCINOLONE ACET 0.1% CREAM 15 GM TUBE TP SCH ×4 (09:15→21:00)
[2023-01-16] MEDS: CLOPIDOGREL 75 MG TABLET GT SCH (09:15)
[2023-01-16] MEDS: METOPROLOL TARTRATE 75 MG GT SCH ×2 (09:15→21:00)
[2023-01-16] MEDS: COLLAGENASE OINT 30 GM TUBE TOP SCH ×4 (09:15→21:00)
[2023-01-16] MEDS: REMEDY ESSENTIAL ZINC PASTE 113 GM TP SCH ×4 (09:16→21:00)
[2023-01-16] MEDS: ASCORBIC ACID 500 MG TABLET GT SCH (21:00)
[2023-01-16] MEDS: ENOXAPARIN SODIUM 40 MG/0.4 ML DISP.SYRIN SQ SCH (21:00)
[2023-01-16] MEDS: COLLAGENASE OINT 30 GM TUBE TP SCH (21:00)
[2023-01-16] MEDS: HYDROCODONE/APAP 10-325 MG TABLET GT PRN (23:42)
[2023-01-17] VITALS (10 sets, daily range): TEMP 99–99.6; O2SAT 97–99
[2023-01-17] MEDS: ALBUTEROL SULFATE 2.5 MG/3 ML NEBU NEB SCH ×4 (01:37→19:00)
[2023-01-17] MEDS: IPRATROPIUM BROMIDE 0.5 MG/2.5 ML NEBU NEB SCH ×4 (01:37→19:00)
[2023-01-17] MEDS: PANTOPRAZOLE ORAL SUSPENSION 40 MG SUSPDR.PKT GT SCH (06:19)
[2023-01-17] MEDS: JEVITY 1.2 1000 ML LIQUID GT PRN (06:19)
[2023-01-17] MEDS: ACIDOPHILUS/BULGARICUS CHEW TAB GT SCH ×2 (08:44→20:13)
[2023-01-17] MEDS: levETIRAcetam 500 MG/5 ML LIQUID UDC GT SCH ×2 (08:44→20:13)
[2023-01-17] MEDS: METOPROLOL TARTRATE 75 MG GT SCH ×2 (08:46→20:14)
[2023-01-17] MEDS: CLOPIDOGREL 75 MG TABLET GT SCH (08:46)
[2023-01-17] MEDS: HYDROGEN PEROXIDE 3% 118 ML BOTTLE TP SCH ×2 (09:00→19:00)
[2023-01-17] MEDS: REMEDY ESSENTIAL ZINC PASTE 113 GM TP SCH ×4 (09:03→20:14)
[2023-01-17] MEDS: TRIAMCINOLONE ACET 0.1% CREAM 15 GM TUBE TP SCH ×4 (09:03→20:14)
[2023-01-17] MEDS: COLLAGENASE OINT 30 GM TUBE TOP SCH ×4 (09:03→20:14)
[2023-01-17] MEDS: NEOMY/BACITRA/POLYMYXIN B OINT UD PACKET TP SCH (09:04)
[2023-01-17] MEDS: ASCORBIC ACID 500 MG TABLET GT SCH (20:14)
[2023-01-17] MEDS: COLLAGENASE OINT 30 GM TUBE TP SCH (20:14)
[2023-01-17] MEDS: ENOXAPARIN SODIUM 40 MG/0.4 ML DISP.SYRIN SQ SCH (21:00)
[2023-01-18] VITALS (10 sets, daily range): TEMP 98.8–100.6; O2SAT 97–99
[2023-01-18] MEDS: ALBUTEROL SULFATE 2.5 MG/3 ML NEBU NEB SCH ×4 (01:10→19:30)
[2023-01-18] MEDS: IPRATROPIUM BROMIDE 0.5 MG/2.5 ML NEBU NEB SCH ×4 (01:10→19:30)
[2023-01-18] MEDS: HYDROCODONE/APAP 10-325 MG TABLET GT PRN (02:31)
[2023-01-18] MEDS: PANTOPRAZOLE ORAL SUSPENSION 40 MG SUSPDR.PKT GT SCH (05:16)
[2023-01-18] MEDS: JEVITY 1.2 1000 ML LIQUID GT PRN ×2 (05:17→17:50)
[2023-01-18] MEDS: levETIRAcetam 500 MG/5 ML LIQUID UDC GT SCH ×2 (09:16→21:21)
[2023-01-18] MEDS: ACIDOPHILUS/BULGARICUS CHEW TAB GT SCH ×2 (09:16→21:20)
[2023-01-18] MEDS: CLOPIDOGREL 75 MG TABLET GT SCH (09:17)
[2023-01-18] MEDS: METOPROLOL TARTRATE 75 MG GT SCH ×2 (09:17→21:21)
[2023-01-18] MEDS: COLLAGENASE OINT 30 GM TUBE TOP SCH ×4 (09:17→21:22)
[2023-01-18] MEDS: TRIAMCINOLONE ACET 0.1% CREAM 15 GM TUBE TP SCH ×4 (09:18→21:22)
[2023-01-18] MEDS: NEOMY/BACITRA/POLYMYXIN B OINT UD PACKET TP SCH (09:18)
[2023-01-18] MEDS: HYDROGEN PEROXIDE 3% 118 ML BOTTLE TP SCH ×2 (09:18→19:30)
[2023-01-18] MEDS: REMEDY ESSENTIAL ZINC PASTE 113 GM TP SCH ×4 (09:18→21:22)
[2023-01-18] MEDS: ASCORBIC ACID 500 MG TABLET GT SCH (21:21)
[2023-01-18] MEDS: COLLAGENASE OINT 30 GM TUBE TP SCH (21:22)
[2023-01-18] MEDS: ENOXAPARIN SODIUM 40 MG/0.4 ML DISP.SYRIN SQ SCH (21:22)
[2023-01-18] MEDS: ACETAMINOPHEN 650 MG/20 ML UDC- SA PATIENTS-PAIN ONLY GT PRN (21:23)
[2023-01-19] VITALS (13 sets, daily range): TEMP 99–100.3; O2SAT 97–99
[2023-01-19] MEDS: IPRATROPIUM BROMIDE 0.5 MG/2.5 ML NEBU NEB SCH ×4 (01:38→19:10)
[2023-01-19] MEDS: ALBUTEROL SULFATE 2.5 MG/3 ML NEBU NEB SCH ×4 (01:38→19:10)
[2023-01-19] MEDS: PANTOPRAZOLE ORAL SUSPENSION 40 MG SUSPDR.PKT GT SCH (05:39)
[2023-01-19] MEDS: HYDROGEN PEROXIDE 3% 118 ML BOTTLE TP SCH ×2 (07:29→19:10)
[2023-01-19] MEDS: METOPROLOL TARTRATE 75 MG GT SCH ×2 (08:12→21:00)
[2023-01-19] MEDS: levETIRAcetam 500 MG/5 ML LIQUID UDC GT SCH ×2 (08:12→21:00)
[2023-01-19] MEDS: ACIDOPHILUS/BULGARICUS CHEW TAB GT SCH ×2 (08:12→21:00)
[2023-01-19] MEDS: CLOPIDOGREL 75 MG TABLET GT SCH (08:13)
[2023-01-19] MEDS: ACETAMINOPHEN 650 MG/20 ML UDC- SA PATIENTS-PAIN ONLY GT PRN (08:14)
[2023-01-19] MEDS: COLLAGENASE OINT 30 GM TUBE TOP SCH ×4 (09:49→21:00)
[2023-01-19] MEDS: TRIAMCINOLONE ACET 0.1% CREAM 15 GM TUBE TP SCH ×4 (09:50→21:00)
[2023-01-19] MEDS: REMEDY ESSENTIAL ZINC PASTE 113 GM TP SCH ×4 (09:51→21:00)
[2023-01-19] MEDS: NEOMY/BACITRA/POLYMYXIN B OINT UD PACKET TP SCH (09:51)
[2023-01-19] MEDS: JEVITY 1.2 1000 ML LIQUID GT PRN (12:04)
[2023-01-19] MEDS: ASCORBIC ACID 500 MG TABLET GT SCH (21:00)
[2023-01-19] MEDS: COLLAGENASE OINT 30 GM TUBE TP SCH (21:00)
[2023-01-19] MEDS: ENOXAPARIN SODIUM 40 MG/0.4 ML DISP.SYRIN SQ SCH (22:16)
[2023-01-20] VITALS (10 sets, daily range): TEMP 98.9–99.1; O2SAT 97–99
[2023-01-20] MEDS: IPRATROPIUM BROMIDE 0.5 MG/2.5 ML NEBU NEB SCH ×4 (00:57→19:55)
[2023-01-20] MEDS: ALBUTEROL SULFATE 2.5 MG/3 ML NEBU NEB SCH ×4 (00:57→19:55)
[2023-01-20] MEDS: PANTOPRAZOLE ORAL SUSPENSION 40 MG SUSPDR.PKT GT SCH (05:45)
[2023-01-20] MEDS: levETIRAcetam 500 MG/5 ML LIQUID UDC GT SCH ×2 (09:14→21:43)
[2023-01-20] MEDS: ACIDOPHILUS/BULGARICUS CHEW TAB GT SCH ×2 (09:14→21:42)
[2023-01-20] MEDS: METOPROLOL TARTRATE 75 MG GT SCH ×2 (09:16→21:45)
[2023-01-20] MEDS: COLLAGENASE OINT 30 GM TUBE TOP SCH ×4 (09:16→21:47)
[2023-01-20] MEDS: CLOPIDOGREL 75 MG TABLET GT SCH (09:16)
[2023-01-20] MEDS: TRIAMCINOLONE ACET 0.1% CREAM 15 GM TUBE TP SCH ×4 (09:16→21:47)
[2023-01-20] MEDS: REMEDY ESSENTIAL ZINC PASTE 113 GM TP SCH ×4 (09:16→21:47)
[2023-01-20] MEDS: NEOMY/BACITRA/POLYMYXIN B OINT UD PACKET TP SCH (09:16)
[2023-01-20] MEDS: HYDROGEN PEROXIDE 3% 118 ML BOTTLE TP SCH ×2 (09:50→21:00)
[2023-01-20] MEDS: ACETAMINOPHEN 650 MG/20 ML UDC- SA PATIENTS-PAIN ONLY GT PRN (21:44)
[2023-01-20] MEDS: ASCORBIC ACID 500 MG TABLET GT SCH (21:46)
[2023-01-20] MEDS: COLLAGENASE OINT 30 GM TUBE TP SCH (21:47)
[2023-01-20] MEDS: ENOXAPARIN SODIUM 40 MG/0.4 ML DISP.SYRIN SQ SCH (21:48)
[2023-01-21] VITALS (9 sets, daily range): TEMP 96.8; O2SAT 98–99
[2023-01-21] MEDS: IPRATROPIUM BROMIDE 0.5 MG/2.5 ML NEBU NEB SCH ×4 (01:47→19:05)
[2023-01-21] MEDS: ALBUTEROL SULFATE 2.5 MG/3 ML NEBU NEB SCH ×4 (01:47→19:05)
[2023-01-21] MEDS: PANTOPRAZOLE ORAL SUSPENSION 40 MG SUSPDR.PKT GT SCH (06:55)
[2023-01-21] MEDS: HYDROGEN PEROXIDE 3% 118 ML BOTTLE TP SCH ×2 (07:12→21:53)
[2023-01-21] MEDS: NEOMY/BACITRA/POLYMYXIN B OINT UD PACKET TP SCH (09:00)
[2023-01-21] MEDS: levETIRAcetam 500 MG/5 ML LIQUID UDC GT SCH ×2 (09:00→20:25)
[2023-01-21] MEDS: CLOPIDOGREL 75 MG TABLET GT SCH (09:00)
[2023-01-21] MEDS: TRIAMCINOLONE ACET 0.1% CREAM 15 GM TUBE TP SCH ×4 (09:00→20:26)
[2023-01-21] MEDS: METOPROLOL TARTRATE 75 MG GT SCH ×2 (09:00→20:25)
[2023-01-21] MEDS: REMEDY ESSENTIAL ZINC PASTE 113 GM TP SCH ×4 (09:00→20:26)
[2023-01-21] MEDS: ACIDOPHILUS/BULGARICUS CHEW TAB GT SCH ×2 (09:00→20:25)
[2023-01-21] MEDS: COLLAGENASE OINT 30 GM TUBE TOP SCH ×4 (09:00→20:26)
[2023-01-21] MEDS: JEVITY 1.2 1000 ML LIQUID GT PRN (12:38)
[2023-01-21] MEDS: ACETAMINOPHEN 650 MG/20 ML UDC- SA PATIENTS-FEVER ONLY GT PRN (18:35)
[2023-01-21] MEDS: ASCORBIC ACID 500 MG TABLET GT SCH (20:25)
[2023-01-21] MEDS: COLLAGENASE OINT 30 GM TUBE TP SCH (20:26)
[2023-01-21] MEDS: ENOXAPARIN SODIUM 40 MG/0.4 ML DISP.SYRIN SQ SCH (20:26)
[2023-01-22] VITALS (11 sets, daily range): TEMP 97.3–98.4; O2SAT 98–99
[2023-01-22] MEDS: ALBUTEROL SULFATE 2.5 MG/3 ML NEBU NEB SCH ×4 (01:30→19:12)
[2023-01-22] MEDS: IPRATROPIUM BROMIDE 0.5 MG/2.5 ML NEBU NEB SCH ×4 (01:30→19:12)
[2023-01-22] MEDS: JEVITY 1.2 1000 ML LIQUID GT PRN ×2 (02:59→19:57)
[2023-01-22] MEDS: PANTOPRAZOLE ORAL SUSPENSION 40 MG SUSPDR.PKT GT SCH (05:32)
[2023-01-22] MEDS: HYDROGEN PEROXIDE 3% 118 ML BOTTLE TP SCH ×2 (07:27→19:13)
[2023-01-22] MEDS: ACIDOPHILUS/BULGARICUS CHEW TAB GT SCH ×2 (08:12→20:14)
[2023-01-22] MEDS: levETIRAcetam 500 MG/5 ML LIQUID UDC GT SCH ×2 (08:14→20:14)
[2023-01-22] MEDS: CLOPIDOGREL 75 MG TABLET GT SCH (08:15)
[2023-01-22] MEDS: COLLAGENASE OINT 30 GM TUBE TOP SCH ×4 (08:15→20:15)
[2023-01-22] MEDS: METOPROLOL TARTRATE 75 MG GT SCH ×2 (08:15→20:15)
[2023-01-22] MEDS: NEOMY/BACITRA/POLYMYXIN B OINT UD PACKET TP SCH (08:16)
[2023-01-22] MEDS: REMEDY ESSENTIAL ZINC PASTE 113 GM TP SCH ×4 (08:16→20:16)
[2023-01-22] MEDS: TRIAMCINOLONE ACET 0.1% CREAM 15 GM TUBE TP SCH ×4 (08:16→20:15)
[2023-01-22] MEDS: ACETAMINOPHEN 650 MG/20 ML UDC- SA PATIENTS-PAIN ONLY GT PRN ×2 (08:25→18:09)
[2023-01-22] MEDS: HYDROCODONE/APAP 10-325 MG TABLET GT PRN (20:00)
[2023-01-22] MEDS: ASCORBIC ACID 500 MG TABLET GT SCH (20:15)
[2023-01-22] MEDS: COLLAGENASE OINT 30 GM TUBE TP SCH (20:16)
[2023-01-22] MEDS: ENOXAPARIN SODIUM 40 MG/0.4 ML DISP.SYRIN SQ SCH (21:00)
[2023-01-23] VITALS (9 sets, daily range): TEMP 97.6–98.5; O2SAT 98–99
[2023-01-23] MEDS: ALBUTEROL SULFATE 2.5 MG/3 ML NEBU NEB SCH ×4 (01:14→19:21)
[2023-01-23] MEDS: IPRATROPIUM BROMIDE 0.5 MG/2.5 ML NEBU NEB SCH ×4 (01:14→19:21)
[2023-01-23] MEDS: PANTOPRAZOLE ORAL SUSPENSION 40 MG SUSPDR.PKT GT SCH (05:08)
[2023-01-23] MEDS: ACIDOPHILUS/BULGARICUS CHEW TAB GT SCH ×2 (09:12→21:45)
[2023-01-23] MEDS: levETIRAcetam 500 MG/5 ML LIQUID UDC GT SCH ×2 (09:14→21:45)
[2023-01-23] MEDS: METOPROLOL TARTRATE 75 MG GT SCH ×2 (09:15→21:45)
[2023-01-23] MEDS: CLOPIDOGREL 75 MG TABLET GT SCH (09:15)
[2023-01-23] MEDS: TRIAMCINOLONE ACET 0.1% CREAM 15 GM TUBE TP SCH ×4 (09:16→21:49)
[2023-01-23] MEDS: COLLAGENASE OINT 30 GM TUBE TOP SCH ×4 (09:16→21:49)
[2023-01-23] MEDS: REMEDY ESSENTIAL ZINC PASTE 113 GM TP SCH ×4 (09:16→21:50)
[2023-01-23] MEDS: NEOMY/BACITRA/POLYMYXIN B OINT UD PACKET TP SCH (09:16)
[2023-01-23] MEDS: HYDROGEN PEROXIDE 3% 118 ML BOTTLE TP SCH ×2 (09:31→20:18)
[2023-01-23] MEDS: ACETAMINOPHEN 650 MG/20 ML UDC- SA PATIENTS-PAIN ONLY GT PRN (12:03)
[2023-01-23] MEDS: JEVITY 1.2 1000 ML LIQUID GT PRN (12:04)
[2023-01-23] MEDS: HYDROCODONE/APAP 10-325 MG TABLET GT PRN (16:17)
[2023-01-23] MEDS: ASCORBIC ACID 500 MG TABLET GT SCH (21:45)
[2023-01-23] MEDS: ENOXAPARIN SODIUM 40 MG/0.4 ML DISP.SYRIN SQ SCH (21:47)
[2023-01-23] MEDS: COLLAGENASE OINT 30 GM TUBE TP SCH (21:50)
[2023-01-24] VITALS (10 sets, daily range): TEMP 97.7–99.5; O2SAT 98–99
[2023-01-24] MEDS: IPRATROPIUM BROMIDE 0.5 MG/2.5 ML NEBU NEB SCH ×4 (01:56→19:40)
[2023-01-24] MEDS: ALBUTEROL SULFATE 2.5 MG/3 ML NEBU NEB SCH ×4 (01:56→19:40)
[2023-01-24] MEDS: JEVITY 1.2 1000 ML LIQUID GT PRN ×2 (02:12→20:52)
[2023-01-24] MEDS: PANTOPRAZOLE ORAL SUSPENSION 40 MG SUSPDR.PKT GT SCH (05:13)
[2023-01-24] MEDS: ACIDOPHILUS/BULGARICUS CHEW TAB GT SCH ×2 (08:16→21:02)
[2023-01-24] MEDS: levETIRAcetam 500 MG/5 ML LIQUID UDC GT SCH ×2 (08:17→21:02)
[2023-01-24] MEDS: METOPROLOL TARTRATE 75 MG GT SCH ×2 (08:18→21:03)
[2023-01-24] MEDS: COLLAGENASE OINT 30 GM TUBE TOP SCH ×4 (08:19→21:03)
[2023-01-24] MEDS: CLOPIDOGREL 75 MG TABLET GT SCH (08:19)
[2023-01-24] MEDS: TRIAMCINOLONE ACET 0.1% CREAM 15 GM TUBE TP SCH ×4 (08:21→21:04)
[2023-01-24] MEDS: NEOMY/BACITRA/POLYMYXIN B OINT UD PACKET TP SCH (08:21)
[2023-01-24] MEDS: REMEDY ESSENTIAL ZINC PASTE 113 GM TP SCH ×4 (08:21→21:04)
[2023-01-24] MEDS: HYDROGEN PEROXIDE 3% 118 ML BOTTLE TP SCH ×2 (09:08→21:03)
[2023-01-24] MEDS: ASCORBIC ACID 500 MG TABLET GT SCH (21:03)
[2023-01-24] MEDS: COLLAGENASE OINT 30 GM TUBE TP SCH (21:04)
[2023-01-24] MEDS: ENOXAPARIN SODIUM 40 MG/0.4 ML DISP.SYRIN SQ SCH (21:06)
[2023-01-25] VITALS (10 sets, daily range): TEMP 98.9–99.6; O2SAT 98–99
[2023-01-25] MEDS: ALBUTEROL SULFATE 2.5 MG/3 ML NEBU NEB SCH ×4 (01:10→19:23)
[2023-01-25] MEDS: IPRATROPIUM BROMIDE 0.5 MG/2.5 ML NEBU NEB SCH ×4 (01:10→19:23)
[2023-01-25] MEDS: PANTOPRAZOLE ORAL SUSPENSION 40 MG SUSPDR.PKT GT SCH (05:23)
[2023-01-25] MEDS: METOPROLOL TARTRATE 75 MG GT SCH ×2 (09:00→20:38)
[2023-01-25] MEDS: COLLAGENASE OINT 30 GM TUBE TOP SCH ×4 (09:00→20:38)
[2023-01-25] MEDS: TRIAMCINOLONE ACET 0.1% CREAM 15 GM TUBE TP SCH ×4 (09:00→20:38)
[2023-01-25] MEDS: REMEDY ESSENTIAL ZINC PASTE 113 GM TP SCH ×4 (09:00→20:39)
[2023-01-25] MEDS: CLOPIDOGREL 75 MG TABLET GT SCH (09:00)
[2023-01-25] MEDS: NEOMY/BACITRA/POLYMYXIN B OINT UD PACKET TP SCH (09:00)
[2023-01-25] MEDS: levETIRAcetam 500 MG/5 ML LIQUID UDC GT SCH ×2 (09:00→20:37)
[2023-01-25] MEDS: ACIDOPHILUS/BULGARICUS CHEW TAB GT SCH ×2 (09:00→20:37)
[2023-01-25] MEDS: HYDROGEN PEROXIDE 3% 118 ML BOTTLE TP SCH ×2 (09:56→19:23)
[2023-01-25] MEDS: ASCORBIC ACID 500 MG TABLET GT SCH (20:38)
[2023-01-25] MEDS: COLLAGENASE OINT 30 GM TUBE TP SCH (20:39)
[2023-01-25] MEDS: ENOXAPARIN SODIUM 40 MG/0.4 ML DISP.SYRIN SQ SCH (21:00)
[2023-01-26] VITALS (10 sets, daily range): TEMP 98.8–99.4; O2SAT 99
[2023-01-26] MEDS: ALBUTEROL SULFATE 2.5 MG/3 ML NEBU NEB SCH ×4 (01:55→19:45)
[2023-01-26] MEDS: IPRATROPIUM BROMIDE 0.5 MG/2.5 ML NEBU NEB SCH ×4 (01:55→19:45)
[2023-01-26] MEDS: PANTOPRAZOLE ORAL SUSPENSION 40 MG SUSPDR.PKT GT SCH (05:43)
[2023-01-26] MEDS: HYDROGEN PEROXIDE 3% 118 ML BOTTLE TP SCH ×2 (08:00→19:45)
[2023-01-26] MEDS: ACIDOPHILUS/BULGARICUS CHEW TAB GT SCH ×2 (08:31→20:30)
[2023-01-26] MEDS: levETIRAcetam 500 MG/5 ML LIQUID UDC GT SCH ×2 (08:31→20:30)
[2023-01-26] MEDS: METOPROLOL TARTRATE 75 MG GT SCH ×2 (08:33→20:31)
[2023-01-26] MEDS: CLOPIDOGREL 75 MG TABLET GT SCH (08:33)
[2023-01-26] MEDS: TRIAMCINOLONE ACET 0.1% CREAM 15 GM TUBE TP SCH ×2 (08:33→20:31)
[2023-01-26] MEDS: COLLAGENASE OINT 30 GM TUBE TOP SCH ×4 (08:33→20:31)
[2023-01-26] MEDS: REMEDY ESSENTIAL ZINC PASTE 113 GM TP SCH ×4 (08:33→20:32)
[2023-01-26] MEDS: NEOMY/BACITRA/POLYMYXIN B OINT UD PACKET TP SCH (08:34)
[2023-01-26] MEDS: ACETAMINOPHEN 650 MG/20 ML UDC- SA PATIENTS-PAIN ONLY GT PRN (18:40)
[2023-01-26] MEDS: ASCORBIC ACID 500 MG TABLET GT SCH (20:31)
[2023-01-26] MEDS: ENOXAPARIN SODIUM 40 MG/0.4 ML DISP.SYRIN SQ SCH (21:00)
[2023-01-26] MEDS: JEVITY 1.2 1000 ML LIQUID GT PRN (22:50)
[2023-01-27] VITALS (9 sets, daily range): TEMP 98.4; O2SAT 99
[2023-01-27] MEDS: IPRATROPIUM BROMIDE 0.5 MG/2.5 ML NEBU NEB SCH ×4 (01:21→19:30)
[2023-01-27] MEDS: ALBUTEROL SULFATE 2.5 MG/3 ML NEBU NEB SCH ×4 (01:22→19:30)
[2023-01-27] MEDS: PANTOPRAZOLE ORAL SUSPENSION 40 MG SUSPDR.PKT GT SCH (06:11)
[2023-01-27] MEDS: ACIDOPHILUS/BULGARICUS CHEW TAB GT SCH ×2 (08:20→21:50)
[2023-01-27] MEDS: levETIRAcetam 500 MG/5 ML LIQUID UDC GT SCH ×2 (08:20→21:51)
[2023-01-27] MEDS: CLOPIDOGREL 75 MG TABLET GT SCH (08:21)
[2023-01-27] MEDS: METOPROLOL TARTRATE 75 MG GT SCH ×2 (08:21→21:51)
[2023-01-27] MEDS: COLLAGENASE OINT 30 GM TUBE TOP SCH ×3 (08:21→21:53)
[2023-01-27] MEDS: REMEDY ESSENTIAL ZINC PASTE 113 GM TP SCH ×4 (08:22→21:53)
[2023-01-27] MEDS: TRIAMCINOLONE ACET 0.1% CREAM 15 GM TUBE TP SCH ×2 (08:22→21:53)
[2023-01-27] MEDS: NEOMY/BACITRA/POLYMYXIN B OINT UD PACKET TP SCH (08:22)
[2023-01-27] MEDS: HYDROGEN PEROXIDE 3% 118 ML BOTTLE TP SCH ×2 (09:00→21:41)
[2023-01-27] MEDS: JEVITY 1.2 1000 ML LIQUID GT PRN (16:18)
[2023-01-27] MEDS: ASCORBIC ACID 500 MG TABLET GT SCH (21:51)
[2023-01-27] MEDS: ENOXAPARIN SODIUM 40 MG/0.4 ML DISP.SYRIN SQ SCH (21:53)
[2023-01-27] MEDS: ACETAMINOPHEN 650 MG/20 ML UDC- SA PATIENTS-PAIN ONLY GT PRN (21:53)
[2023-01-28] VITALS (10 sets, daily range): TEMP 98–98.5; O2SAT 98–99
[2023-01-28] MEDS: ALBUTEROL SULFATE 2.5 MG/3 ML NEBU NEB SCH ×4 (01:20→19:30)
[2023-01-28] MEDS: IPRATROPIUM BROMIDE 0.5 MG/2.5 ML NEBU NEB SCH ×4 (01:20→19:30)
[2023-01-28] MEDS: PANTOPRAZOLE ORAL SUSPENSION 40 MG SUSPDR.PKT GT SCH (06:27)
[2023-01-28] MEDS: levoFLOXacin 750 MG TABLET PO SCH (06:27)
[2023-01-28] MEDS: COLLAGENASE OINT 30 GM TUBE TOP SCH ×2 (09:00→09:38)
[2023-01-28] MEDS: levETIRAcetam 500 MG/5 ML LIQUID UDC GT SCH ×2 (09:37→21:05)
[2023-01-28] MEDS: METOPROLOL TARTRATE 75 MG GT SCH ×2 (09:37→21:06)
[2023-01-28] MEDS: CLOPIDOGREL 75 MG TABLET GT SCH (09:37)
[2023-01-28] MEDS: ACIDOPHILUS/BULGARICUS CHEW TAB GT SCH ×2 (09:37→21:05)
[2023-01-28] MEDS: REMEDY ESSENTIAL ZINC PASTE 113 GM TP SCH ×4 (09:38→21:07)
[2023-01-28] MEDS: TRIAMCINOLONE ACET 0.1% CREAM 15 GM TUBE TP SCH ×2 (09:38→21:06)
[2023-01-28] MEDS: HYDROGEN PEROXIDE 3% 118 ML BOTTLE TP SCH ×2 (09:57→21:50)
[2023-01-28] MEDS: NEOMY/BACITRA/POLYMYXIN B OINT UD PACKET TP SCH ×2 (10:01→21:07)
[2023-01-28] MEDS: HYDROCODONE/APAP 10-325 MG TABLET GT PRN (21:00)
[2023-01-28] MEDS: ASCORBIC ACID 500 MG TABLET GT SCH (21:06)
[2023-01-28] MEDS: ENOXAPARIN SODIUM 40 MG/0.4 ML DISP.SYRIN SQ SCH (21:06)
[2023-01-29] VITALS (10 sets, daily range): TEMP 98–98.1; O2SAT 98–99
[2023-01-29] MEDS: ALBUTEROL SULFATE 2.5 MG/3 ML NEBU NEB SCH ×4 (01:00→19:16)
[2023-01-29] MEDS: IPRATROPIUM BROMIDE 0.5 MG/2.5 ML NEBU NEB SCH ×4 (01:00→19:16)
[2023-01-29] MEDS: JEVITY 1.2 1000 ML LIQUID GT PRN ×2 (03:46→22:24)
[2023-01-29] MEDS: levoFLOXacin 750 MG TABLET PO SCH (05:16)
[2023-01-29] MEDS: PANTOPRAZOLE ORAL SUSPENSION 40 MG SUSPDR.PKT GT SCH (05:16)
[2023-01-29] MEDS: REMEDY ESSENTIAL ZINC PASTE 113 GM TP SCH ×4 (09:00→21:25)
[2023-01-29] MEDS: ACIDOPHILUS/BULGARICUS CHEW TAB GT SCH ×2 (09:00→21:24)
[2023-01-29] MEDS: TRIAMCINOLONE ACET 0.1% CREAM 15 GM TUBE TP SCH ×2 (09:00→21:25)
[2023-01-29] MEDS: CLOPIDOGREL 75 MG TABLET GT SCH (09:00)
[2023-01-29] MEDS: levETIRAcetam 500 MG/5 ML LIQUID UDC GT SCH ×2 (09:00→21:24)
[2023-01-29] MEDS: METOPROLOL TARTRATE 75 MG GT SCH ×2 (09:00→21:24)
[2023-01-29] MEDS: HYDROGEN PEROXIDE 3% 118 ML BOTTLE TP SCH ×2 (09:00→21:40)
[2023-01-29] MEDS: NEOMY/BACITRA/POLYMYXIN B OINT UD PACKET TP SCH ×2 (09:00→21:25)
[2023-01-29] MEDS: COLLAGENASE OINT 30 GM TUBE TOP SCH (09:00)
[2023-01-29] MEDS: ENOXAPARIN SODIUM 40 MG/0.4 ML DISP.SYRIN SQ SCH (21:00)
[2023-01-29] MEDS: ASCORBIC ACID 500 MG TABLET GT SCH (21:24)
[2023-01-30] VITALS (9 sets, daily range): TEMP 99.4; O2SAT 98–99
[2023-01-30] MEDS: ALBUTEROL SULFATE 2.5 MG/3 ML NEBU NEB SCH ×4 (01:11→19:12)
[2023-01-30] MEDS: IPRATROPIUM BROMIDE 0.5 MG/2.5 ML NEBU NEB SCH ×4 (01:11→19:11)
[2023-01-30] MEDS: ACETAMINOPHEN 650 MG/20 ML UDC- SA PATIENTS-FEVER ONLY GT PRN (04:17)
[2023-01-30] MEDS: PANTOPRAZOLE ORAL SUSPENSION 40 MG SUSPDR.PKT GT SCH (05:00)
[2023-01-30] MEDS: levoFLOXacin 750 MG TABLET PO SCH (05:00)
[2023-01-30] MEDS: ACIDOPHILUS/BULGARICUS CHEW TAB GT SCH ×2 (08:28→21:55)
[2023-01-30] MEDS: levETIRAcetam 500 MG/5 ML LIQUID UDC GT SCH ×2 (08:29→21:55)
[2023-01-30] MEDS: METOPROLOL TARTRATE 75 MG GT SCH ×2 (08:30→21:56)
[2023-01-30] MEDS: COLLAGENASE OINT 30 GM TUBE TOP SCH (08:31)
[2023-01-30] MEDS: CLOPIDOGREL 75 MG TABLET GT SCH (08:31)
[2023-01-30] MEDS: NEOMY/BACITRA/POLYMYXIN B OINT UD PACKET TP SCH ×2 (08:32→21:56)
[2023-01-30] MEDS: REMEDY ESSENTIAL ZINC PASTE 113 GM TP SCH ×4 (08:32→21:56)
[2023-01-30] MEDS: TRIAMCINOLONE ACET 0.1% CREAM 15 GM TUBE TP SCH ×2 (08:32→21:56)
[2023-01-30] MEDS: HYDROGEN PEROXIDE 3% 118 ML BOTTLE TP SCH ×2 (09:00→21:47)
[2023-01-30] MEDS: JEVITY 1.2 1000 ML LIQUID GT PRN (15:39)
[2023-01-30] MEDS: ENOXAPARIN SODIUM 40 MG/0.4 ML DISP.SYRIN SQ SCH (21:56)
[2023-01-30] MEDS: ASCORBIC ACID 500 MG TABLET GT SCH (21:56)
[2023-01-31] VITALS (11 sets, daily range): TEMP 97.5–98.9; O2SAT 99
[2023-01-31] MEDS: ALBUTEROL SULFATE 2.5 MG/3 ML NEBU NEB SCH ×4 (01:39→20:26)
[2023-01-31] MEDS: IPRATROPIUM BROMIDE 0.5 MG/2.5 ML NEBU NEB SCH ×4 (01:39→20:26)
[2023-01-31] MEDS: levoFLOXacin 750 MG TABLET PO SCH (05:23)
[2023-01-31] MEDS: PANTOPRAZOLE ORAL SUSPENSION 40 MG SUSPDR.PKT GT SCH (05:23)
[2023-01-31] MEDS: HYDROGEN PEROXIDE 3% 118 ML BOTTLE TP SCH ×2 (09:11→20:26)
[2023-01-31] MEDS: ACIDOPHILUS/BULGARICUS CHEW TAB GT SCH ×2 (09:35→21:43)
[2023-01-31] MEDS: levETIRAcetam 500 MG/5 ML LIQUID UDC GT SCH ×2 (09:35→21:43)
[2023-01-31] MEDS: METOPROLOL TARTRATE 75 MG GT SCH ×2 (09:36→21:43)
[2023-01-31] MEDS: TRIAMCINOLONE ACET 0.1% CREAM 15 GM TUBE TP SCH ×2 (09:37→21:43)
[2023-01-31] MEDS: NEOMY/BACITRA/POLYMYXIN B OINT UD PACKET TP SCH ×2 (09:37→21:44)
[2023-01-31] MEDS: COLLAGENASE OINT 30 GM TUBE TOP SCH (09:37)
[2023-01-31] MEDS: CLOPIDOGREL 75 MG TABLET GT SCH (09:37)
[2023-01-31] MEDS: REMEDY ESSENTIAL ZINC PASTE 113 GM TP SCH ×4 (09:37→21:44)
[2023-01-31] MEDS: JEVITY 1.2 1000 ML LIQUID GT PRN (11:22)
[2023-01-31] MEDS: ACETAMINOPHEN 650 MG/20 ML UDC- SA PATIENTS-PAIN ONLY GT PRN ×2 (14:22→15:27)
[2023-01-31] MEDS: ENOXAPARIN SODIUM 40 MG/0.4 ML DISP.SYRIN SQ SCH (21:43)
[2023-01-31] MEDS: ASCORBIC ACID 500 MG TABLET GT SCH (21:43)
[2023-02-01] VITALS (11 sets, daily range): TEMP 98.8–100; O2SAT 98–99
[2023-02-01] MEDS: IPRATROPIUM BROMIDE 0.5 MG/2.5 ML NEBU NEB SCH ×4 (02:12→19:32)
[2023-02-01] MEDS: ALBUTEROL SULFATE 2.5 MG/3 ML NEBU NEB SCH ×4 (02:12→19:32)
[2023-02-01] MEDS: JEVITY 1.2 1000 ML LIQUID GT PRN ×2 (02:17→18:48)
[2023-02-01] MEDS: PANTOPRAZOLE ORAL SUSPENSION 40 MG SUSPDR.PKT GT SCH (05:53)
[2023-02-01] MEDS: levoFLOXacin 750 MG TABLET PO SCH (06:20)
[2023-02-01 07:09] LABS: BASOPHILS # (AUTO) 0.1 K/UL (0.0-0.2); BASOPHILS % (AUTO) 1.2 % (0.0-2.0); EOSINOPHILS # (AUTO) 0.1 K/uL (0.0-0.7); EOSINOPHILS % (AUTO) 0.8 % (0.0-7.0); HEMATOCRIT 28.3 % (36.7-47.1); HEMOGLOBIN 9.3 g/dL (12.5-16.3); LYMPHOCYTES # (AUTO) 1.4 K/uL (0.8-4.8); LYMPHOCYTES % (AUTO) 11.6 % (20.5-51.5); MEAN CORPUSCULAR HEMOGLOBIN 28.1 uug (23.8-33.4); MEAN CORPUSCULAR HGB CONC 33 g/dL (32.5-36.3); MEAN CORPUSCULAR VOLUME 85.1 fL (73.0-96.2); MONOCYTES # (AUTO) 1.1 K/uL (0.1-1.30); NEUTROPHILS # (AUTO) 9.4 K/uL (1.8-8.9); NEUTROPHILS % (AUTO) 77.4 % (38.5-71.5); PLATELET COUNT (AUTO) 944 K/uL (152-348); RED BLOOD CELL COUNT(AUTO) 3.32 MIL/uL (4.06-5.63); RED CELL DISTRIBUTION WIDTH 14.9 % (12.1-16.2); WHITE BLOOD COUNT (AUTO) 12.2 K/uL (3.6-10.2)
[2023-02-01 07:25] LABS: DIFFERENTIAL COMMENT 1
[2023-02-01 07:35] LABS: ALBUMIN 1.8 g/dL (3.4-5.0); BILIRUBIN,TOTAL 0.1 mg/dL (0.2-1.0); CALCIUM 8.3 mg/dL (8.5-10.1); CREATININE 0.7 mg/dL (0.6-1.3); MAGNESIUM 1.9 mg/dL (1.8-2.4); PHOSPHOROUS 3.4 mg/dL (2.5-4.9); POTASSIUM 3.6 mmol/L (3.5-5.1); TOTAL PROTEIN, SERUM 7.8 g/dL (6.4-8.2)
[2023-02-01] MEDS: ACIDOPHILUS/BULGARICUS CHEW TAB GT SCH ×2 (09:53→21:47)
[2023-02-01] MEDS: levETIRAcetam 500 MG/5 ML LIQUID UDC GT SCH ×2 (09:53→21:47)
[2023-02-01] MEDS: CLOPIDOGREL 75 MG TABLET GT SCH (09:53)
[2023-02-01] MEDS: NEOMY/BACITRA/POLYMYXIN B OINT UD PACKET TP SCH ×2 (09:54→21:48)
[2023-02-01] MEDS: COLLAGENASE OINT 30 GM TUBE TOP SCH (09:54)
[2023-02-01] MEDS: REMEDY ESSENTIAL ZINC PASTE 113 GM TP SCH ×4 (09:54→21:48)
[2023-02-01] MEDS: TRIAMCINOLONE ACET 0.1% CREAM 15 GM TUBE TP SCH ×2 (09:54→21:48)
[2023-02-01] MEDS: METOPROLOL TARTRATE 75 MG GT SCH ×2 (09:58→21:47)
[2023-02-01] MEDS: HYDROGEN PEROXIDE 3% 118 ML BOTTLE TP SCH ×2 (09:59→19:32)
[2023-02-01] MEDS: ACETAMINOPHEN 650 MG/20 ML UDC- SA PATIENTS-PAIN ONLY GT PRN (10:06)
[2023-02-01] MEDS: ASCORBIC ACID 500 MG TABLET GT SCH (21:47)
[2023-02-01] MEDS: ENOXAPARIN SODIUM 40 MG/0.4 ML DISP.SYRIN SQ SCH (21:48)
[2023-02-02] VITALS (12 sets, daily range): TEMP 97.2–100.2; O2SAT 97–99
[2023-02-02] MEDS: IPRATROPIUM BROMIDE 0.5 MG/2.5 ML NEBU NEB SCH ×4 (01:18→21:39)
[2023-02-02] MEDS: ALBUTEROL SULFATE 2.5 MG/3 ML NEBU NEB SCH ×4 (01:18→21:39)
[2023-02-02] MEDS: PANTOPRAZOLE ORAL SUSPENSION 40 MG SUSPDR.PKT GT SCH (05:11)
[2023-02-02] MEDS ORDERED: levoFLOXacin 750MG/D5W 750 MG in PREMIXED 1 EACH IV SCH (06:00)
[2023-02-02] MEDS: levoFLOXacin 750 MG TABLET GT SCH (07:14)
[2023-02-02] MEDS: HYDROGEN PEROXIDE 3% 118 ML BOTTLE TP SCH ×2 (08:45→21:40)
[2023-02-02] MEDS: ACIDOPHILUS/BULGARICUS CHEW TAB GT SCH ×2 (08:57→21:00)
[2023-02-02] MEDS: levETIRAcetam 500 MG/5 ML LIQUID UDC GT SCH ×2 (08:58→21:00)
[2023-02-02] MEDS: METOPROLOL TARTRATE 75 MG GT SCH ×2 (09:00→21:00)
[2023-02-02] MEDS: CLOPIDOGREL 75 MG TABLET GT SCH (09:00)
[2023-02-02] MEDS: REMEDY ESSENTIAL ZINC PASTE 113 GM TP SCH ×4 (09:02→21:00)
[2023-02-02] MEDS: NEOMY/BACITRA/POLYMYXIN B OINT UD PACKET TP SCH ×2 (09:02→21:00)
[2023-02-02] MEDS: COLLAGENASE OINT 30 GM TUBE TOP SCH (09:02)
[2023-02-02] MEDS: TRIAMCINOLONE ACET 0.1% CREAM 15 GM TUBE TP SCH (09:02)
[2023-02-02] MEDS: JEVITY 1.2 1000 ML LIQUID GT PRN (13:09)
[2023-02-02 17:30] LABS: *BILIRUBIN,URIN NEGATIVE (NEGATIVE); *BLOOD, URINE NEGATIVE (NEGATIVE); *CLARITY,URINE CLEAR (CLEAR); *COLOR,URINE YELLOW (YELLOW); *KETONES,URINE NEGATIVE (NEGATIVE); *PROTEIN,URINE 1+ (NEGATIVE); *UROBILINOGEN,URINE 0.2 E.U./dl (NORMAL); LEUKOCYTE ESTERASE ,URINE NEGATIVE (NEGATIVE); NITRITE, URINE NEGATIVE (NEGATIVE); PH,URINE 7.5 (5.0-8.0); UGLUCOSE NEGATIVE (NEGATIVE)
[2023-02-02 17:31] LABS: RBC,URINE 0-3 /HPF (0-3); WBC,URINE 0-3 /HPF (0-3)
[2023-02-02] MEDS: ACETAMINOPHEN 650 MG/20 ML UDC- SA PATIENTS-FEVER ONLY GT PRN (19:09)
[2023-02-02] MEDS: ENOXAPARIN SODIUM 40 MG/0.4 ML DISP.SYRIN SQ SCH (21:00)
[2023-02-02] MEDS: ASCORBIC ACID 500 MG TABLET GT SCH (21:00)
[2023-02-03] VITALS (12 sets, daily range): TEMP 98.2–100; O2SAT 97–99
[2023-02-03] MEDS: IPRATROPIUM BROMIDE 0.5 MG/2.5 ML NEBU NEB SCH ×4 (00:47→19:08)
[2023-02-03] MEDS: ALBUTEROL SULFATE 2.5 MG/3 ML NEBU NEB SCH ×4 (00:47→19:08)
[2023-02-03] MEDS: JEVITY 1.2 1000 ML LIQUID GT PRN ×2 (03:19→18:18)
[2023-02-03] MEDS: PANTOPRAZOLE ORAL SUSPENSION 40 MG SUSPDR.PKT GT SCH (05:26)
[2023-02-03] MEDS: levoFLOXacin 750 MG TABLET GT SCH (05:26)
[2023-02-03] MEDS: HYDROGEN PEROXIDE 3% 118 ML BOTTLE TP SCH ×2 (09:00→21:33)
[2023-02-03] MEDS: ACIDOPHILUS/BULGARICUS CHEW TAB GT SCH ×2 (09:12→21:00)
[2023-02-03] MEDS: levETIRAcetam 500 MG/5 ML LIQUID UDC GT SCH ×2 (09:13→21:00)
[2023-02-03] MEDS: CLOPIDOGREL 75 MG TABLET GT SCH (09:14)
[2023-02-03] MEDS: METOPROLOL TARTRATE 75 MG GT SCH ×2 (09:14→21:00)
[2023-02-03] MEDS: COLLAGENASE OINT 30 GM TUBE TOP SCH (09:15)
[2023-02-03] MEDS: NEOMY/BACITRA/POLYMYXIN B OINT UD PACKET TP SCH ×2 (09:15→21:00)
[2023-02-03] MEDS: REMEDY ESSENTIAL ZINC PASTE 113 GM TP SCH ×4 (09:15→21:00)
[2023-02-03] MEDS: ASCORBIC ACID 500 MG TABLET GT SCH (21:00)
[2023-02-03] MEDS: ENOXAPARIN SODIUM 40 MG/0.4 ML DISP.SYRIN SQ SCH (21:00)
[2023-02-04] VITALS (9 sets, daily range): TEMP 98–100.1; O2SAT 97–99
[2023-02-04] MEDS: IPRATROPIUM BROMIDE 0.5 MG/2.5 ML NEBU NEB SCH ×4 (01:25→19:30)
[2023-02-04] MEDS: ALBUTEROL SULFATE 2.5 MG/3 ML NEBU NEB SCH ×4 (01:25→19:30)
[2023-02-04] MEDS: PANTOPRAZOLE ORAL SUSPENSION 40 MG SUSPDR.PKT GT SCH (05:17)
[2023-02-04] MEDS: HYDROGEN PEROXIDE 3% 118 ML BOTTLE TP SCH ×2 (09:23→21:00)
[2023-02-04] MEDS: METOPROLOL TARTRATE 75 MG GT SCH ×2 (09:31→21:00)
[2023-02-04] MEDS: ACIDOPHILUS/BULGARICUS CHEW TAB GT SCH ×2 (09:31→21:00)
[2023-02-04] MEDS: levETIRAcetam 500 MG/5 ML LIQUID UDC GT SCH ×2 (09:31→21:00)
[2023-02-04] MEDS: CLOPIDOGREL 75 MG TABLET GT SCH (09:31)
[2023-02-04] MEDS: NEOMY/BACITRA/POLYMYXIN B OINT UD PACKET TP SCH ×2 (09:32→21:00)
[2023-02-04] MEDS: COLLAGENASE OINT 30 GM TUBE TOP SCH (09:32)
[2023-02-04] MEDS: REMEDY ESSENTIAL ZINC PASTE 113 GM TP SCH ×4 (09:32→21:00)
[2023-02-04] MEDS: ASCORBIC ACID 500 MG TABLET GT SCH (21:00)
[2023-02-04] MEDS: ENOXAPARIN SODIUM 40 MG/0.4 ML DISP.SYRIN SQ SCH (21:00)
[2023-02-05] VITALS (10 sets, daily range): BP systolic 105; BP diastolic 63; TEMP 98.5–99.6; O2SAT 97–99
[2023-02-05] MEDS: ALBUTEROL SULFATE 2.5 MG/3 ML NEBU NEB SCH ×4 (01:20→19:24)
[2023-02-05] MEDS: IPRATROPIUM BROMIDE 0.5 MG/2.5 ML NEBU NEB SCH ×4 (01:20→19:24)
[2023-02-05] MEDS: PANTOPRAZOLE ORAL SUSPENSION 40 MG SUSPDR.PKT GT SCH (06:26)
[2023-02-05] MEDS: HYDROGEN PEROXIDE 3% 118 ML BOTTLE TP SCH ×2 (09:00→19:24)
[2023-02-05] MEDS: REMEDY ESSENTIAL ZINC PASTE 113 GM TP SCH ×4 (09:00→21:00)
[2023-02-05] MEDS: COLLAGENASE OINT 30 GM TUBE TOP SCH (09:00)
[2023-02-05] MEDS: CLOPIDOGREL 75 MG TABLET GT SCH (09:00)
[2023-02-05] MEDS: NEOMY/BACITRA/POLYMYXIN B OINT UD PACKET TP SCH ×2 (09:00→21:00)
[2023-02-05] MEDS: METOPROLOL TARTRATE 75 MG GT SCH ×2 (09:00→21:00)
[2023-02-05] MEDS: ACIDOPHILUS/BULGARICUS CHEW TAB GT SCH ×2 (09:00→21:00)
[2023-02-05] MEDS: levETIRAcetam 500 MG/5 ML LIQUID UDC GT SCH ×2 (09:00→21:00)
[2023-02-05] MEDS: ENOXAPARIN SODIUM 40 MG/0.4 ML DISP.SYRIN SQ SCH (21:00)
[2023-02-05] MEDS: ASCORBIC ACID 500 MG TABLET GT SCH (21:00)
[2023-02-06] VITALS (10 sets, daily range): TEMP 98–98.6; O2SAT 98–99
[2023-02-06] MEDS: IPRATROPIUM BROMIDE 0.5 MG/2.5 ML NEBU NEB SCH ×4 (00:44→19:15)
[2023-02-06] MEDS: ALBUTEROL SULFATE 2.5 MG/3 ML NEBU NEB SCH ×4 (00:44→19:15)
[2023-02-06] MEDS: PANTOPRAZOLE ORAL SUSPENSION 40 MG SUSPDR.PKT GT SCH (05:27)
[2023-02-06] MEDS: HYDROGEN PEROXIDE 3% 118 ML BOTTLE TP SCH ×2 (08:24→20:40)
[2023-02-06] MEDS: ACIDOPHILUS/BULGARICUS CHEW TAB GT SCH ×2 (08:29→21:00)
[2023-02-06] MEDS: levETIRAcetam 500 MG/5 ML LIQUID UDC GT SCH ×2 (08:30→21:00)
[2023-02-06] MEDS: NEOMY/BACITRA/POLYMYXIN B OINT UD PACKET TP SCH ×2 (08:31→21:00)
[2023-02-06] MEDS: COLLAGENASE OINT 30 GM TUBE TOP SCH (08:31)
[2023-02-06] MEDS: CLOPIDOGREL 75 MG TABLET GT SCH (08:31)
[2023-02-06] MEDS: REMEDY ESSENTIAL ZINC PASTE 113 GM TP SCH ×4 (08:31→21:00)
[2023-02-06] MEDS: METOPROLOL TARTRATE 75 MG GT SCH ×2 (08:33→21:00)
[2023-02-06] MEDS: ASCORBIC ACID 500 MG TABLET GT SCH (21:00)
[2023-02-06] MEDS: ENOXAPARIN SODIUM 40 MG/0.4 ML DISP.SYRIN SQ SCH (21:00)
[2023-02-07] VITALS (11 sets, daily range): TEMP 97.7–98.2; O2SAT 97–99
[2023-02-07] MEDS: ALBUTEROL SULFATE 2.5 MG/3 ML NEBU NEB SCH ×3 (01:00→13:15)
[2023-02-07] MEDS: IPRATROPIUM BROMIDE 0.5 MG/2.5 ML NEBU NEB SCH ×3 (01:00→13:15)
[2023-02-07] MEDS: PANTOPRAZOLE ORAL SUSPENSION 40 MG SUSPDR.PKT GT SCH (05:58)
[2023-02-07] MEDS: REMEDY ESSENTIAL ZINC PASTE 113 GM TP SCH ×4 (08:31→21:00)
[2023-02-07] MEDS: ACIDOPHILUS/BULGARICUS CHEW TAB GT SCH ×2 (08:31→21:00)
[2023-02-07] MEDS: NEOMY/BACITRA/POLYMYXIN B OINT UD PACKET TP SCH ×2 (08:31→21:00)
[2023-02-07] MEDS: CLOPIDOGREL 75 MG TABLET GT SCH (08:31)
[2023-02-07] MEDS: METOPROLOL TARTRATE 75 MG GT SCH ×2 (08:31→21:00)
[2023-02-07] MEDS: COLLAGENASE OINT 30 GM TUBE TOP SCH (08:31)
[2023-02-07] MEDS: levETIRAcetam 500 MG/5 ML LIQUID UDC GT SCH ×2 (08:31→21:00)
[2023-02-07] MEDS: HYDROGEN PEROXIDE 3% 118 ML BOTTLE TP SCH ×2 (09:00→21:00)
[2023-02-07 20:06] LABS: ADENOVIRUS Not Detected (Not Detected); CORONAVIRUS 229E Not Detected (Not Detected); CORONAVIRUS HKU1 Not Detected (Not Detected); CORONAVIRUS NL63 Not Detected (Not Detected); CORONAVIRUS OC43 Not Detected (Not Detected); NP BORDETELLA PERTUSIS Not Detected (Not Detected); NP CHLAMYDOPHILA PNEUMONIAE Not Detected (Not Detected); NP HUMAN METAPNEUMOVIRUS Not Detected (Not Detected); NP HUMAN RHINO/ENTERO VIRUS Not Detected (Not Detected); NP INFLUENZA A Not Detected (Not Detected); NP INFLUENZA A/H1 Not Detected (Not Detected); NP INFLUENZA A/H1-2009 Not Detected (Not Detected); NP INFLUENZA A/H3 Not Detected (Not Detected); NP INFLUENZA B Not Detected (Not Detected); NP MYCOPLASMA PNEUMONIAE Not Detected (Not Detected); NP PARAINFLUENZA 1 Not Detected (Not Detected); NP PARAINFLUENZA 2 Not Detected (Not Detected); NP PARAINFLUENZA 3 Not Detected (Not Detected); NP PARAINFLUENZA 4 Not Detected (Not Detected); NP RESPIRATORY SYNCYTIAL VIRUS Not Detected (Not Detected)
[2023-02-07] MEDS: ASCORBIC ACID 500 MG TABLET GT SCH (21:00)
[2023-02-07] MEDS: ENOXAPARIN SODIUM 40 MG/0.4 ML DISP.SYRIN SQ SCH (22:11)
[2023-02-08] VITALS (11 sets, daily range): TEMP 97.6–98.6; O2SAT 97–99
[2023-02-08] MEDS: ALBUTEROL SULFATE 2.5 MG/3 ML NEBU NEB SCH ×4 (01:43→19:34)
[2023-02-08] MEDS: IPRATROPIUM BROMIDE 0.5 MG/2.5 ML NEBU NEB SCH ×4 (01:43→19:34)
[2023-02-08] MEDS: PANTOPRAZOLE ORAL SUSPENSION 40 MG SUSPDR.PKT GT SCH (05:19)
[2023-02-08] MEDS: ACIDOPHILUS/BULGARICUS CHEW TAB GT SCH ×2 (09:02→21:35)
[2023-02-08] MEDS: levETIRAcetam 500 MG/5 ML LIQUID UDC GT SCH ×2 (09:02→21:30)
[2023-02-08] MEDS: COLLAGENASE OINT 30 GM TUBE TOP SCH (09:02)
[2023-02-08] MEDS: NEOMY/BACITRA/POLYMYXIN B OINT UD PACKET TP SCH ×2 (09:02→21:30)
[2023-02-08] MEDS: REMEDY ESSENTIAL ZINC PASTE 113 GM TP SCH ×4 (09:02→21:30)
[2023-02-08] MEDS: METOPROLOL TARTRATE 75 MG GT SCH ×2 (09:02→21:30)
[2023-02-08] MEDS: CLOPIDOGREL 75 MG TABLET GT SCH (09:02)
[2023-02-08] MEDS: HYDROGEN PEROXIDE 3% 118 ML BOTTLE TP SCH ×2 (09:37→19:34)
[2023-02-08] MEDS: ENOXAPARIN SODIUM 40 MG/0.4 ML DISP.SYRIN SQ SCH (21:30)
[2023-02-08] MEDS: ASCORBIC ACID 500 MG TABLET GT SCH (21:30)
[2023-02-08] MEDS: ACETAMINOPHEN 650 MG/20 ML UDC- SA PATIENTS-PAIN ONLY GT PRN (22:36)
[2023-02-09] VITALS (10 sets, daily range): TEMP 98–98.2; O2SAT 98–99
[2023-02-09] MEDS: ALBUTEROL SULFATE 2.5 MG/3 ML NEBU NEB SCH ×4 (01:30→19:14)
[2023-02-09] MEDS: IPRATROPIUM BROMIDE 0.5 MG/2.5 ML NEBU NEB SCH ×4 (01:30→19:14)
[2023-02-09] MEDS: PANTOPRAZOLE ORAL SUSPENSION 40 MG SUSPDR.PKT GT SCH (06:38)
[2023-02-09] MEDS: JEVITY 1.2 1000 ML LIQUID GT PRN (06:38)
[2023-02-09 07:33] LABS: BASOPHILS # (AUTO) 0.1 K/UL (0.0-0.2); BASOPHILS % (AUTO) 0.5 % (0.0-2.0); EOSINOPHILS # (AUTO) 0.2 K/uL (0.0-0.7); EOSINOPHILS % (AUTO) 1.4 % (0.0-7.0); HEMATOCRIT 30.4 % (36.7-47.1); HEMOGLOBIN 9.7 g/dL (12.5-16.3); LYMPHOCYTES # (AUTO) 1.9 K/uL (0.8-4.8); LYMPHOCYTES % (AUTO) 13.5 % (20.5-51.5); MEAN CORPUSCULAR HEMOGLOBIN 27.2 uug (23.8-33.4); MEAN CORPUSCULAR HGB CONC 32 g/dL (32.5-36.3); MEAN CORPUSCULAR VOLUME 85.4 fL (73.0-96.2); MONOCYTES # (AUTO) 1.3 K/uL (0.1-1.30); MONOCYTES % (AUTO) 8.8 % (0.0-11.0); NEUTROPHILS # (AUTO) 10.9 K/uL (1.8-8.9); NEUTROPHILS % (AUTO) 75.8 % (38.5-71.5); PLATELET COUNT (AUTO) 925 K/uL (152-348); RED BLOOD CELL COUNT(AUTO) 3.56 MIL/uL (4.06-5.63); RED CELL DISTRIBUTION WIDTH 15.2 % (12.1-16.2); WHITE BLOOD COUNT (AUTO) 14.4 K/uL (3.6-10.2)
[2023-02-09 07:48] LABS: DIFFERENTIAL COMMENT 1
[2023-02-09 07:49] LABS: CALCIUM 8.8 mg/dL (8.5-10.1); CARBON DIOXIDE 25 mmol/L (21-32); CHLORIDE 101 mmol/L (98-107); CREATININE 0.6 mg/dL (0.6-1.3); GLUCOSE 128 mg/dL (74-106); POTASSIUM 4.1 mmol/L (3.5-5.1); SODIUM SERUM 136 mmol/L (136-145); UREA NITROGEN, BLOOD 20 mg/dL (7-18)
[2023-02-09] MEDS: HYDROGEN PEROXIDE 3% 118 ML BOTTLE TP SCH ×2 (09:00→21:00)
[2023-02-09] MEDS: COLLAGENASE OINT 30 GM TUBE TOP SCH (09:19)
[2023-02-09] MEDS: METOPROLOL TARTRATE 75 MG GT SCH ×2 (09:19→21:06)
[2023-02-09] MEDS: NEOMY/BACITRA/POLYMYXIN B OINT UD PACKET TP SCH ×2 (09:19→21:07)
[2023-02-09] MEDS: levETIRAcetam 500 MG/5 ML LIQUID UDC GT SCH ×2 (09:19→21:05)
[2023-02-09] MEDS: ACIDOPHILUS/BULGARICUS CHEW TAB GT SCH ×2 (09:19→21:05)
[2023-02-09] MEDS: CLOPIDOGREL 75 MG TABLET GT SCH (09:19)
[2023-02-09] MEDS: REMEDY ESSENTIAL ZINC PASTE 113 GM TP SCH ×4 (09:19→21:07)
[2023-02-09] MEDS: ASCORBIC ACID 500 MG TABLET GT SCH (21:05)
[2023-02-09] MEDS: ENOXAPARIN SODIUM 40 MG/0.4 ML DISP.SYRIN SQ SCH (21:06)
[2023-02-10] VITALS (10 sets, daily range): TEMP 97.7–98; O2SAT 98–99
[2023-02-10] MEDS: IPRATROPIUM BROMIDE 0.5 MG/2.5 ML NEBU NEB SCH ×5 (01:40→19:10)
[2023-02-10] MEDS: ALBUTEROL SULFATE 2.5 MG/3 ML NEBU NEB SCH ×4 (01:41→19:10)
[2023-02-10] MEDS: PANTOPRAZOLE ORAL SUSPENSION 40 MG SUSPDR.PKT GT SCH (05:22)
[2023-02-10] MEDS: HYDROGEN PEROXIDE 3% 118 ML BOTTLE TP SCH ×2 (07:13→20:54)
[2023-02-10] MEDS: ACIDOPHILUS/BULGARICUS CHEW TAB GT SCH ×2 (08:38→21:26)
[2023-02-10] MEDS: levETIRAcetam 500 MG/5 ML LIQUID UDC GT SCH ×2 (08:38→21:27)
[2023-02-10] MEDS: METOPROLOL TARTRATE 75 MG GT SCH ×2 (08:39→21:27)
[2023-02-10] MEDS: CLOPIDOGREL 75 MG TABLET GT SCH (08:40)
[2023-02-10] MEDS: COLLAGENASE OINT 30 GM TUBE TOP SCH (08:40)
[2023-02-10] MEDS: REMEDY ESSENTIAL ZINC PASTE 113 GM TP SCH ×4 (08:41→21:27)
[2023-02-10] MEDS: NEOMY/BACITRA/POLYMYXIN B OINT UD PACKET TP SCH ×2 (08:42→21:27)
[2023-02-10] MEDS: JEVITY 1.2 1000 ML LIQUID GT PRN (18:07)
[2023-02-10] MEDS: ASCORBIC ACID 500 MG TABLET GT SCH (21:27)
[2023-02-10] MEDS: ENOXAPARIN SODIUM 40 MG/0.4 ML DISP.SYRIN SQ SCH (21:28)
[2023-02-11] VITALS (11 sets, daily range): TEMP 98.1–99.1; O2SAT 95–99
[2023-02-11] MEDS: IPRATROPIUM BROMIDE 0.5 MG/2.5 ML NEBU NEB SCH ×4 (01:20→19:24)
[2023-02-11] MEDS: ALBUTEROL SULFATE 2.5 MG/3 ML NEBU NEB SCH ×4 (01:20→19:24)
[2023-02-11] MEDS: PANTOPRAZOLE ORAL SUSPENSION 40 MG SUSPDR.PKT GT SCH ×2 (06:06→21:12)
[2023-02-11] MEDS: levETIRAcetam 500 MG/5 ML LIQUID UDC GT SCH ×2 (09:16→21:11)
[2023-02-11] MEDS: ACIDOPHILUS/BULGARICUS CHEW TAB GT SCH ×2 (09:16→21:11)
[2023-02-11] MEDS: CLOPIDOGREL 75 MG TABLET GT SCH (09:19)
[2023-02-11] MEDS: REMEDY ESSENTIAL ZINC PASTE 113 GM TP SCH ×4 (09:20→21:12)
[2023-02-11] MEDS: COLLAGENASE OINT 30 GM TUBE TOP SCH (09:20)
[2023-02-11] MEDS: METOPROLOL TARTRATE 75 MG GT SCH ×2 (09:25→21:12)
[2023-02-11] MEDS: HYDROGEN PEROXIDE 3% 118 ML BOTTLE TP SCH (09:32)
[2023-02-11] MEDS: JEVITY 1.2 1000 ML LIQUID GT PRN (14:46)
[2023-02-11] MEDS: ASCORBIC ACID 500 MG TABLET GT SCH (21:12)
[2023-02-12] VITALS (10 sets, daily range): TEMP 98.3–98.5; O2SAT 95–97
[2023-02-12] MEDS: HYDROGEN PEROXIDE 3% 118 ML BOTTLE TP SCH ×3 (00:39→19:10)
[2023-02-12] MEDS: ALBUTEROL SULFATE 2.5 MG/3 ML NEBU NEB SCH ×4 (01:10→19:10)
[2023-02-12] MEDS: IPRATROPIUM BROMIDE 0.5 MG/2.5 ML NEBU NEB SCH ×4 (01:10→19:10)
[2023-02-12] MEDS: JEVITY 1.2 1000 ML LIQUID GT PRN (03:40)
[2023-02-12] MEDS: ACIDOPHILUS/BULGARICUS CHEW TAB GT SCH ×2 (09:54→20:19)
[2023-02-12] MEDS: METOPROLOL TARTRATE 75 MG GT SCH ×2 (09:55→20:22)
[2023-02-12] MEDS: levETIRAcetam 500 MG/5 ML LIQUID UDC GT SCH ×2 (09:55→20:19)
[2023-02-12] MEDS: COLLAGENASE OINT 30 GM TUBE TOP SCH (09:57)
[2023-02-12] MEDS: PANTOPRAZOLE ORAL SUSPENSION 40 MG SUSPDR.PKT GT SCH ×2 (09:57→20:22)
[2023-02-12] MEDS: REMEDY ESSENTIAL ZINC PASTE 113 GM TP SCH ×4 (09:58→20:22)
[2023-02-12] MEDS: ASCORBIC ACID 500 MG TABLET GT SCH (20:22)
[2023-02-13] VITALS (11 sets, daily range): BP systolic 94; BP diastolic 65; TEMP 98.2–98.9; O2SAT 95–99
[2023-02-13] MEDS: ALBUTEROL SULFATE 2.5 MG/3 ML NEBU NEB SCH ×4 (01:06→19:35)
[2023-02-13] MEDS: IPRATROPIUM BROMIDE 0.5 MG/2.5 ML NEBU NEB SCH ×4 (01:06→19:35)
[2023-02-13] MEDS: HYDROGEN PEROXIDE 3% 118 ML BOTTLE TP SCH ×2 (08:06→20:32)
[2023-02-13] MEDS: METOPROLOL TARTRATE 75 MG GT SCH ×2 (09:00→20:59)
[2023-02-13] MEDS: levETIRAcetam 500 MG/5 ML LIQUID UDC GT SCH ×2 (09:11→20:58)
[2023-02-13] MEDS: ACIDOPHILUS/BULGARICUS CHEW TAB GT SCH ×2 (09:11→20:58)
[2023-02-13] MEDS: REMEDY ESSENTIAL ZINC PASTE 113 GM TP SCH ×4 (09:12→20:59)
[2023-02-13] MEDS: PANTOPRAZOLE ORAL SUSPENSION 40 MG SUSPDR.PKT GT SCH ×2 (09:12→20:59)
[2023-02-13] MEDS: COLLAGENASE OINT 30 GM TUBE TOP SCH (09:12)
[2023-02-13] MEDS: JEVITY 1.2 1000 ML LIQUID GT PRN (14:37)
[2023-02-13] MEDS: ASCORBIC ACID 500 MG TABLET GT SCH (20:59)
[2023-02-14] VITALS (10 sets, daily range): TEMP 98.2–98.3; O2SAT 95–99
[2023-02-14] MEDS: ALBUTEROL SULFATE 2.5 MG/3 ML NEBU NEB SCH ×4 (01:24→19:10)
[2023-02-14] MEDS: IPRATROPIUM BROMIDE 0.5 MG/2.5 ML NEBU NEB SCH ×4 (01:24→19:10)
[2023-02-14] MEDS: levETIRAcetam 500 MG/5 ML LIQUID UDC GT SCH ×2 (08:33→21:00)
[2023-02-14] MEDS: ACIDOPHILUS/BULGARICUS CHEW TAB GT SCH ×2 (08:33→21:00)
[2023-02-14] MEDS: PANTOPRAZOLE ORAL SUSPENSION 40 MG SUSPDR.PKT GT SCH ×2 (08:34→21:00)
[2023-02-14] MEDS: REMEDY ESSENTIAL ZINC PASTE 113 GM TP SCH ×4 (08:34→21:00)
[2023-02-14] MEDS: COLLAGENASE OINT 30 GM TUBE TOP SCH (08:34)
[2023-02-14] MEDS: METOPROLOL TARTRATE 75 MG GT SCH ×2 (08:34→21:00)
[2023-02-14] MEDS: HYDROGEN PEROXIDE 3% 118 ML BOTTLE TP SCH ×2 (09:48→22:04)
[2023-02-14] MEDS: ASCORBIC ACID 500 MG TABLET GT SCH (21:00)
[2023-02-15] VITALS (10 sets, daily range): TEMP 98.8–98.9; O2SAT 95–99
[2023-02-15] MEDS: ALBUTEROL SULFATE 2.5 MG/3 ML NEBU NEB SCH ×4 (01:32→20:16)
[2023-02-15] MEDS: IPRATROPIUM BROMIDE 0.5 MG/2.5 ML NEBU NEB SCH ×4 (01:32→20:16)
[2023-02-15] MEDS: ACIDOPHILUS/BULGARICUS CHEW TAB GT SCH ×2 (08:49→21:12)
[2023-02-15] MEDS: levETIRAcetam 500 MG/5 ML LIQUID UDC GT SCH ×2 (08:50→21:12)
[2023-02-15] MEDS: METOPROLOL TARTRATE 75 MG GT SCH ×2 (08:55→21:13)
[2023-02-15] MEDS: PANTOPRAZOLE ORAL SUSPENSION 40 MG SUSPDR.PKT GT SCH ×2 (08:56→21:15)
[2023-02-15] MEDS: COLLAGENASE OINT 30 GM TUBE TOP SCH (08:59)
[2023-02-15] MEDS: REMEDY ESSENTIAL ZINC PASTE 113 GM TP SCH ×4 (08:59→21:16)
[2023-02-15] MEDS: HYDROGEN PEROXIDE 3% 118 ML BOTTLE TP SCH ×2 (09:16→21:00)
[2023-02-15] MEDS: ASCORBIC ACID 500 MG TABLET GT SCH (21:15)
[2023-02-16] VITALS (10 sets, daily range): TEMP 97.8–98; O2SAT 95–99
[2023-02-16] MEDS: ALBUTEROL SULFATE 2.5 MG/3 ML NEBU NEB SCH ×4 (01:56→19:18)
[2023-02-16] MEDS: IPRATROPIUM BROMIDE 0.5 MG/2.5 ML NEBU NEB SCH ×4 (01:56→19:18)
[2023-02-16] MEDS: JEVITY 1.2 1000 ML LIQUID GT PRN ×2 (02:40→18:20)
[2023-02-16] MEDS: HYDROGEN PEROXIDE 3% 118 ML BOTTLE TP SCH ×2 (08:25→21:07)
[2023-02-16] MEDS: ACIDOPHILUS/BULGARICUS CHEW TAB GT SCH ×2 (08:56→21:39)
[2023-02-16] MEDS: levETIRAcetam 500 MG/5 ML LIQUID UDC GT SCH ×2 (08:57→21:39)
[2023-02-16] MEDS: PANTOPRAZOLE ORAL SUSPENSION 40 MG SUSPDR.PKT GT SCH ×2 (08:59→21:40)
[2023-02-16] MEDS: METOPROLOL TARTRATE 75 MG GT SCH ×2 (08:59→21:40)
[2023-02-16] MEDS: COLLAGENASE OINT 30 GM TUBE TOP SCH (09:02)
[2023-02-16] MEDS: REMEDY ESSENTIAL ZINC PASTE 113 GM TP SCH ×4 (09:02→21:41)
[2023-02-16] MEDS: ACETAMINOPHEN 650 MG/20 ML UDC- SA PATIENTS-PAIN ONLY GT PRN (13:31)
[2023-02-16] MEDS: ASCORBIC ACID 500 MG TABLET GT SCH (21:41)
[2023-02-17] VITALS (9 sets, daily range): TEMP 98.1; O2SAT 96–99
[2023-02-17] MEDS: ALBUTEROL SULFATE 2.5 MG/3 ML NEBU NEB SCH ×4 (01:22→19:30)
[2023-02-17] MEDS: IPRATROPIUM BROMIDE 0.5 MG/2.5 ML NEBU NEB SCH ×4 (01:22→19:30)
[2023-02-17] MEDS: HYDROGEN PEROXIDE 3% 118 ML BOTTLE TP SCH ×2 (07:25→21:34)
[2023-02-17] MEDS: ACIDOPHILUS/BULGARICUS CHEW TAB GT SCH ×2 (09:19→20:43)
[2023-02-17] MEDS: levETIRAcetam 500 MG/5 ML LIQUID UDC GT SCH ×2 (09:19→20:43)
[2023-02-17] MEDS: METOPROLOL TARTRATE 75 MG GT SCH ×2 (09:19→20:45)
[2023-02-17] MEDS: PANTOPRAZOLE ORAL SUSPENSION 40 MG SUSPDR.PKT GT SCH ×2 (09:20→20:45)
[2023-02-17] MEDS: REMEDY ESSENTIAL ZINC PASTE 113 GM TP SCH ×4 (09:20→20:47)
[2023-02-17] MEDS: COLLAGENASE OINT 30 GM TUBE TOP SCH (09:20)
[2023-02-17] MEDS: JEVITY 1.2 1000 ML LIQUID GT PRN (12:30)
[2023-02-17] MEDS: CLOPIDOGREL 75 MG TABLET PO SCH (13:00)
[2023-02-17] MEDS: ASCORBIC ACID 500 MG TABLET GT SCH (20:47)
[2023-02-18] VITALS (10 sets, daily range): TEMP 97–97.7; O2SAT 96–99
[2023-02-18] MEDS: IPRATROPIUM BROMIDE 0.5 MG/2.5 ML NEBU NEB SCH ×4 (01:56→19:12)
[2023-02-18] MEDS: ALBUTEROL SULFATE 2.5 MG/3 ML NEBU NEB SCH ×4 (01:56→19:13)
[2023-02-18] MEDS: ACIDOPHILUS/BULGARICUS CHEW TAB GT SCH ×2 (08:36→21:02)
[2023-02-18] MEDS: PANTOPRAZOLE ORAL SUSPENSION 40 MG SUSPDR.PKT GT SCH (08:37)
[2023-02-18] MEDS: levETIRAcetam 500 MG/5 ML LIQUID UDC GT SCH ×2 (08:37→21:02)
[2023-02-18] MEDS: METOPROLOL TARTRATE 75 MG GT SCH ×2 (08:37→21:02)
[2023-02-18] MEDS: COLLAGENASE OINT 30 GM TUBE TOP SCH (08:38)
[2023-02-18] MEDS: CLOPIDOGREL 75 MG TABLET PO SCH (08:38)
[2023-02-18] MEDS: REMEDY ESSENTIAL ZINC PASTE 113 GM TP SCH ×4 (08:38→21:02)
[2023-02-18] MEDS: HYDROGEN PEROXIDE 3% 118 ML BOTTLE TP SCH ×2 (09:00→21:28)
[2023-02-18] MEDS: JEVITY 1.2 1000 ML LIQUID GT PRN (10:19)
[2023-02-18] MEDS: ASCORBIC ACID 500 MG TABLET GT SCH (21:02)
[2023-02-19] VITALS (12 sets, daily range): TEMP 98–98.1; O2SAT 97–99
[2023-02-19] MEDS: IPRATROPIUM BROMIDE 0.5 MG/2.5 ML NEBU NEB SCH ×4 (00:50→22:43)
[2023-02-19] MEDS: ALBUTEROL SULFATE 2.5 MG/3 ML NEBU NEB SCH ×4 (00:50→22:44)
[2023-02-19] MEDS: JEVITY 1.2 1000 ML LIQUID GT PRN ×2 (05:07→23:31)
[2023-02-19] MEDS: levETIRAcetam 500 MG/5 ML LIQUID UDC GT SCH ×2 (09:00→21:08)
[2023-02-19] MEDS: METOPROLOL TARTRATE 75 MG GT SCH ×2 (09:00→21:09)
[2023-02-19] MEDS: REMEDY ESSENTIAL ZINC PASTE 113 GM TP SCH ×4 (09:00→21:09)
[2023-02-19] MEDS: COLLAGENASE OINT 30 GM TUBE TOP SCH (09:00)
[2023-02-19] MEDS: ACIDOPHILUS/BULGARICUS CHEW TAB GT SCH ×2 (09:00→21:08)
[2023-02-19] MEDS: CLOPIDOGREL 75 MG TABLET PO SCH (09:00)
[2023-02-19] MEDS: HYDROGEN PEROXIDE 3% 118 ML BOTTLE TP SCH ×2 (10:30→22:44)
[2023-02-19] MEDS: ASCORBIC ACID 500 MG TABLET GT SCH (21:09)
[2023-02-20] VITALS (13 sets, daily range): TEMP 97.6–97.9; O2SAT 96–99
[2023-02-20] MEDS: IPRATROPIUM BROMIDE 0.5 MG/2.5 ML NEBU NEB SCH ×4 (01:59→21:49)
[2023-02-20] MEDS: ALBUTEROL SULFATE 2.5 MG/3 ML NEBU NEB SCH ×4 (01:59→21:49)
[2023-02-20] MEDS: HYDROGEN PEROXIDE 3% 118 ML BOTTLE TP SCH ×2 (08:10→21:49)
[2023-02-20] MEDS: ACIDOPHILUS/BULGARICUS CHEW TAB GT SCH ×2 (09:17→21:50)
[2023-02-20] MEDS: levETIRAcetam 500 MG/5 ML LIQUID UDC GT SCH ×2 (09:17→21:50)
[2023-02-20] MEDS: COLLAGENASE OINT 30 GM TUBE TOP SCH (09:17)
[2023-02-20] MEDS: REMEDY ESSENTIAL ZINC PASTE 113 GM TP SCH ×4 (09:17→21:51)
[2023-02-20] MEDS: METOPROLOL TARTRATE 75 MG GT SCH ×2 (09:17→21:51)
[2023-02-20] MEDS: CLOPIDOGREL 75 MG TABLET PO SCH (09:17)
[2023-02-20] MEDS: ASCORBIC ACID 500 MG TABLET GT SCH (21:51)
[2023-02-21] VITALS (12 sets, daily range): TEMP 97.7–98.2; O2SAT 96–99
[2023-02-21] MEDS: ALBUTEROL SULFATE 2.5 MG/3 ML NEBU NEB SCH ×4 (02:27→20:38)
[2023-02-21] MEDS: IPRATROPIUM BROMIDE 0.5 MG/2.5 ML NEBU NEB SCH ×4 (02:27→20:38)
[2023-02-21] MEDS: HYDROGEN PEROXIDE 3% 118 ML BOTTLE TP SCH ×2 (07:59→21:50)
[2023-02-21] MEDS: ACIDOPHILUS/BULGARICUS CHEW TAB GT SCH ×2 (09:42→20:46)
[2023-02-21] MEDS: levETIRAcetam 500 MG/5 ML LIQUID UDC GT SCH ×2 (09:42→20:46)
[2023-02-21] MEDS: COLLAGENASE OINT 30 GM TUBE TOP SCH (09:44)
[2023-02-21] MEDS: REMEDY ESSENTIAL ZINC PASTE 113 GM TP SCH ×4 (09:44→20:47)
[2023-02-21] MEDS: CLOPIDOGREL 75 MG TABLET PO SCH (09:44)
[2023-02-21] MEDS: METOPROLOL TARTRATE 75 MG GT SCH ×2 (09:45→20:47)
[2023-02-21] MEDS: ASCORBIC ACID 500 MG TABLET GT SCH (20:47)
[2023-02-22] VITALS (10 sets, daily range): TEMP 98.8; O2SAT 96–99
[2023-02-22] MEDS: IPRATROPIUM BROMIDE 0.5 MG/2.5 ML NEBU NEB SCH ×4 (01:43→20:00)
[2023-02-22] MEDS: ALBUTEROL SULFATE 2.5 MG/3 ML NEBU NEB SCH ×4 (01:47→20:00)
[2023-02-22] MEDS: JEVITY 1.2 1000 ML LIQUID GT PRN ×2 (03:11→22:14)
[2023-02-22] MEDS: HYDROGEN PEROXIDE 3% 118 ML BOTTLE TP SCH ×2 (07:47→21:13)
[2023-02-22 08:04] LABS: BASOPHILS % (AUTO) 0.5 % (0.0-2.0); EOSINOPHILS # (AUTO) 0.4 K/uL (0.0-0.7); EOSINOPHILS % (AUTO) 4.3 % (0.0-7.0); HEMATOCRIT 35.9 % (36.7-47.1); HEMOGLOBIN 11.8 g/dL (12.5-16.3); LYMPHOCYTES # (AUTO) 2.3 K/uL (0.8-4.8); LYMPHOCYTES % (AUTO) 27.4 % (20.5-51.5); MEAN CORPUSCULAR HEMOGLOBIN 28.4 uug (23.8-33.4); MEAN CORPUSCULAR HGB CONC 33 g/dL (32.5-36.3); MEAN CORPUSCULAR VOLUME 86.7 fL (73.0-96.2); MONOCYTES # (AUTO) 0.8 K/uL (0.1-1.30); MONOCYTES % (AUTO) 9.1 % (0.0-11.0); NEUTROPHILS # (AUTO) 4.9 K/uL (1.8-8.9); NEUTROPHILS % (AUTO) 58.7 % (38.5-71.5); PLATELET COUNT (AUTO) 551 K/uL (152-348); RED BLOOD CELL COUNT(AUTO) 4.14 MIL/uL (4.06-5.63); RED CELL DISTRIBUTION WIDTH 17.5 % (12.1-16.2); WHITE BLOOD COUNT (AUTO) 8.4 K/uL (3.6-10.2)
[2023-02-22 08:09] LABS: DIFFERENTIAL COMMENT 1
[2023-02-22 08:49] LABS: ALBUMIN 2.4 g/dL (3.4-5.0); BILIRUBIN,TOTAL 0.2 mg/dL (0.2-1.0); CALCIUM 9.1 mg/dL (8.5-10.1); CREATININE 0.7 mg/dL (0.6-1.3); PHOSPHOROUS 4.2 mg/dL (2.5-4.9); POTASSIUM 4.1 mmol/L (3.5-5.1); TOTAL PROTEIN, SERUM 8.2 g/dL (6.4-8.2)
[2023-02-22] MEDS: levETIRAcetam 500 MG/5 ML LIQUID UDC GT SCH ×2 (09:16→21:06)
[2023-02-22] MEDS: ACIDOPHILUS/BULGARICUS CHEW TAB GT SCH ×2 (09:16→21:06)
[2023-02-22] MEDS: REMEDY ESSENTIAL ZINC PASTE 113 GM TP SCH ×4 (09:17→21:07)
[2023-02-22] MEDS: COLLAGENASE OINT 30 GM TUBE TOP SCH (09:17)
[2023-02-22] MEDS: CLOPIDOGREL 75 MG TABLET PO SCH (09:17)
[2023-02-22] MEDS: METOPROLOL TARTRATE 75 MG GT SCH ×2 (09:20→21:06)
[2023-02-22] MEDS: ASCORBIC ACID 500 MG TABLET GT SCH (21:06)
[2023-02-23] VITALS (10 sets, daily range): TEMP 98.3–98.9; O2SAT 96–99
[2023-02-23] MEDS: IPRATROPIUM BROMIDE 0.5 MG/2.5 ML NEBU NEB SCH ×4 (01:01→19:20)
[2023-02-23] MEDS: ALBUTEROL SULFATE 2.5 MG/3 ML NEBU NEB SCH ×4 (01:02→19:20)
[2023-02-23] MEDS: HYDROGEN PEROXIDE 3% 118 ML BOTTLE TP SCH ×2 (08:50→19:20)
[2023-02-23] MEDS: COLLAGENASE OINT 30 GM TUBE TOP SCH (09:00)
[2023-02-23] MEDS: CLOPIDOGREL 75 MG TABLET PO SCH (09:00)
[2023-02-23] MEDS: ACIDOPHILUS/BULGARICUS CHEW TAB GT SCH ×2 (09:00→21:00)
[2023-02-23] MEDS: METOPROLOL TARTRATE 75 MG GT SCH ×2 (09:00→21:00)
[2023-02-23] MEDS: REMEDY ESSENTIAL ZINC PASTE 113 GM TP SCH ×4 (09:00→21:00)
[2023-02-23] MEDS: levETIRAcetam 500 MG/5 ML LIQUID UDC GT SCH ×2 (09:00→21:00)
[2023-02-23] MEDS: JEVITY 1.2 1000 ML LIQUID GT PRN (18:11)
[2023-02-23] MEDS: ASCORBIC ACID 500 MG TABLET GT SCH (21:00)
[2023-02-24] VITALS (10 sets, daily range): TEMP 98–99.5; O2SAT 96–99
[2023-02-24] MEDS: ALBUTEROL SULFATE 2.5 MG/3 ML NEBU NEB SCH ×4 (02:09→19:22)
[2023-02-24] MEDS: IPRATROPIUM BROMIDE 0.5 MG/2.5 ML NEBU NEB SCH ×4 (02:09→19:22)
[2023-02-24] MEDS: HYDROGEN PEROXIDE 3% 118 ML BOTTLE TP SCH ×2 (08:58→23:58)
[2023-02-24] MEDS: ACIDOPHILUS/BULGARICUS CHEW TAB GT SCH ×2 (09:50→20:54)
[2023-02-24] MEDS: levETIRAcetam 500 MG/5 ML LIQUID UDC GT SCH ×2 (09:50→20:54)
[2023-02-24] MEDS: REMEDY ESSENTIAL ZINC PASTE 113 GM TP SCH ×4 (09:51→20:55)
[2023-02-24] MEDS: CLOPIDOGREL 75 MG TABLET PO SCH (09:51)
[2023-02-24] MEDS: COLLAGENASE OINT 30 GM TUBE TOP SCH (09:51)
[2023-02-24] MEDS: METOPROLOL TARTRATE 75 MG GT SCH ×2 (10:00→20:54)
[2023-02-24] MEDS: ASCORBIC ACID 500 MG TABLET GT SCH (20:55)
[2023-02-24] MEDS: JEVITY 1.2 1000 ML LIQUID GT PRN (22:35)
[2023-02-25] VITALS (12 sets, daily range): TEMP 97.4–98.4; O2SAT 97–99
[2023-02-25] MEDS: IPRATROPIUM BROMIDE 0.5 MG/2.5 ML NEBU NEB SCH ×4 (01:10→22:59)
[2023-02-25] MEDS: ALBUTEROL SULFATE 2.5 MG/3 ML NEBU NEB SCH ×4 (01:10→22:59)
[2023-02-25] MEDS: HYDROGEN PEROXIDE 3% 118 ML BOTTLE TP SCH ×2 (08:22→22:59)
[2023-02-25] MEDS: CLOPIDOGREL 75 MG TABLET PO SCH (09:44)
[2023-02-25] MEDS: METOPROLOL TARTRATE 75 MG GT SCH ×2 (09:44→21:10)
[2023-02-25] MEDS: REMEDY ESSENTIAL ZINC PASTE 113 GM TP SCH ×4 (09:44→21:11)
[2023-02-25] MEDS: COLLAGENASE OINT 30 GM TUBE TOP SCH (09:44)
[2023-02-25] MEDS: ACIDOPHILUS/BULGARICUS CHEW TAB GT SCH ×2 (09:44→21:08)
[2023-02-25] MEDS: levETIRAcetam 500 MG/5 ML LIQUID UDC GT SCH ×2 (09:44→21:08)
[2023-02-25] MEDS: ASCORBIC ACID 500 MG TABLET GT SCH (21:09)
[2023-02-26] VITALS (11 sets, daily range): TEMP 98–98.8; O2SAT 95–99
[2023-02-26] MEDS: IPRATROPIUM BROMIDE 0.5 MG/2.5 ML NEBU NEB SCH ×4 (01:16→19:12)
[2023-02-26] MEDS: ALBUTEROL SULFATE 2.5 MG/3 ML NEBU NEB SCH ×4 (01:17→19:12)
[2023-02-26] MEDS: JEVITY 1.2 1000 ML LIQUID GT PRN (05:08)
[2023-02-26] MEDS: HYDROGEN PEROXIDE 3% 118 ML BOTTLE TP SCH ×2 (09:10→21:13)
[2023-02-26] MEDS: ACIDOPHILUS/BULGARICUS CHEW TAB GT SCH ×2 (09:14→21:17)
[2023-02-26] MEDS: levETIRAcetam 500 MG/5 ML LIQUID UDC GT SCH ×2 (09:15→21:17)
[2023-02-26] MEDS: CLOPIDOGREL 75 MG TABLET PO SCH (09:15)
[2023-02-26] MEDS: METOPROLOL TARTRATE 75 MG GT SCH ×2 (09:15→21:18)
[2023-02-26] MEDS: COLLAGENASE OINT 30 GM TUBE TOP SCH (09:17)
[2023-02-26] MEDS: REMEDY ESSENTIAL ZINC PASTE 113 GM TP SCH ×4 (09:18→21:18)
[2023-02-26] MEDS: ASCORBIC ACID 500 MG TABLET GT SCH (21:18)
[2023-02-27] VITALS (10 sets, daily range): TEMP 97.7–97.8; O2SAT 98–99
[2023-02-27] MEDS: JEVITY 1.2 1000 ML LIQUID GT PRN ×2 (01:00→18:49)
[2023-02-27] MEDS: IPRATROPIUM BROMIDE 0.5 MG/2.5 ML NEBU NEB SCH ×4 (01:21→19:07)
[2023-02-27] MEDS: ALBUTEROL SULFATE 2.5 MG/3 ML NEBU NEB SCH ×4 (01:21→19:07)
[2023-02-27] MEDS: HYDROGEN PEROXIDE 3% 118 ML BOTTLE TP SCH ×2 (08:43→21:10)
[2023-02-27] MEDS: levETIRAcetam 500 MG/5 ML LIQUID UDC GT SCH ×2 (09:15→21:15)
[2023-02-27] MEDS: ACIDOPHILUS/BULGARICUS CHEW TAB GT SCH ×2 (09:15→21:13)
[2023-02-27] MEDS: METOPROLOL TARTRATE 75 MG GT SCH ×2 (09:15→21:14)
[2023-02-27] MEDS: CLOPIDOGREL 75 MG TABLET PO SCH (09:16)
[2023-02-27] MEDS: REMEDY ESSENTIAL ZINC PASTE 113 GM TP SCH ×4 (09:16→21:16)
[2023-02-27] MEDS: COLLAGENASE OINT 30 GM TUBE TOP SCH (09:16)
[2023-02-27] MEDS: ASCORBIC ACID 500 MG TABLET GT SCH (21:15)
[2023-02-28] VITALS (10 sets, daily range): TEMP 97.8–98; O2SAT 98–99
[2023-02-28] MEDS: IPRATROPIUM BROMIDE 0.5 MG/2.5 ML NEBU NEB SCH ×4 (01:05→19:24)
[2023-02-28] MEDS: ALBUTEROL SULFATE 2.5 MG/3 ML NEBU NEB SCH ×4 (01:05→19:24)
[2023-02-28] MEDS: HYDROGEN PEROXIDE 3% 118 ML BOTTLE TP SCH ×2 (09:00→21:00)
[2023-02-28] MEDS: ACIDOPHILUS/BULGARICUS CHEW TAB GT SCH ×2 (09:36→21:00)
[2023-02-28] MEDS: levETIRAcetam 500 MG/5 ML LIQUID UDC GT SCH ×2 (09:36→21:00)
[2023-02-28] MEDS: METOPROLOL TARTRATE 75 MG GT SCH ×2 (09:37→21:00)
[2023-02-28] MEDS: CLOPIDOGREL 75 MG TABLET PO SCH (09:40)
[2023-02-28] MEDS: REMEDY ESSENTIAL ZINC PASTE 113 GM TP SCH ×4 (09:41→21:00)
[2023-02-28] MEDS: COLLAGENASE OINT 30 GM TUBE TOP SCH (09:41)
[2023-02-28] MEDS: JEVITY 1.2 1000 ML LIQUID GT PRN (17:01)
[2023-02-28] MEDS: ASCORBIC ACID 500 MG TABLET GT SCH (21:00)
[2023-03-01] VITALS (13 sets, daily range): TEMP 97.7–98.8; O2SAT 98–99
[2023-03-01] MEDS: ALBUTEROL SULFATE 2.5 MG/3 ML NEBU NEB SCH ×4 (01:30→20:29)
[2023-03-01] MEDS: IPRATROPIUM BROMIDE 0.5 MG/2.5 ML NEBU NEB SCH ×4 (01:30→20:29)
[2023-03-01] MEDS: HYDROGEN PEROXIDE 3% 118 ML BOTTLE TP SCH ×2 (08:51→20:29)
[2023-03-01] MEDS: ACIDOPHILUS/BULGARICUS CHEW TAB GT SCH ×2 (09:44→21:00)
[2023-03-01] MEDS: levETIRAcetam 500 MG/5 ML LIQUID UDC GT SCH ×2 (09:44→21:00)
[2023-03-01] MEDS: METOPROLOL TARTRATE 75 MG GT SCH ×2 (09:48→21:00)
[2023-03-01] MEDS: CLOPIDOGREL 75 MG TABLET PO SCH (09:48)
[2023-03-01] MEDS: REMEDY ESSENTIAL ZINC PASTE 113 GM TP SCH ×4 (09:49→21:00)
[2023-03-01] MEDS: COLLAGENASE OINT 30 GM TUBE TOP SCH (09:49)
[2023-03-01] MEDS: PANTOPRAZOLE ORAL SUSPENSION 40 MG SUSPDR.PKT GT SCH (18:54)
[2023-03-01] MEDS: ASCORBIC ACID 500 MG TABLET GT SCH (21:00)
[2023-03-02] VITALS (11 sets, daily range): BP systolic 99; BP diastolic 65; TEMP 97.7–97.9; O2SAT 97–99
[2023-03-02] MEDS: ALBUTEROL SULFATE 2.5 MG/3 ML NEBU NEB SCH ×4 (01:30→20:59)
[2023-03-02] MEDS: IPRATROPIUM BROMIDE 0.5 MG/2.5 ML NEBU NEB SCH ×4 (01:30→20:59)
[2023-03-02] MEDS: PANTOPRAZOLE ORAL SUSPENSION 40 MG SUSPDR.PKT GT SCH ×2 (05:46→17:41)
[2023-03-02] MEDS: HYDROGEN PEROXIDE 3% 118 ML BOTTLE TP SCH (09:04)
[2023-03-02] MEDS: ACIDOPHILUS/BULGARICUS CHEW TAB GT SCH ×2 (09:21→21:00)
[2023-03-02] MEDS: levETIRAcetam 500 MG/5 ML LIQUID UDC GT SCH ×2 (09:21→21:00)
[2023-03-02] MEDS: METOPROLOL TARTRATE 75 MG GT SCH ×2 (09:23→21:00)
[2023-03-02] MEDS: COLLAGENASE OINT 30 GM TUBE TOP SCH (09:24)
[2023-03-02] MEDS: REMEDY ESSENTIAL ZINC PASTE 113 GM TP SCH ×4 (09:24→21:00)
[2023-03-02] MEDS: JEVITY 1.2 1000 ML LIQUID GT PRN (18:36)
[2023-03-02] MEDS: ASCORBIC ACID 500 MG TABLET GT SCH (21:00)
[2023-03-03] VITALS (11 sets, daily range): TEMP 97.6; O2SAT 97–99
[2023-03-03] MEDS: HYDROGEN PEROXIDE 3% 118 ML BOTTLE TP SCH ×3 (00:22→21:00)
[2023-03-03] MEDS: ALBUTEROL SULFATE 2.5 MG/3 ML NEBU NEB SCH ×4 (02:11→19:30)
[2023-03-03] MEDS: IPRATROPIUM BROMIDE 0.5 MG/2.5 ML NEBU NEB SCH ×4 (02:11→19:30)
[2023-03-03] MEDS: PANTOPRAZOLE ORAL SUSPENSION 40 MG SUSPDR.PKT GT SCH ×2 (05:42→18:30)
[2023-03-03] MEDS: ACIDOPHILUS/BULGARICUS CHEW TAB GT SCH ×2 (09:45→21:30)
[2023-03-03] MEDS: levETIRAcetam 500 MG/5 ML LIQUID UDC GT SCH ×2 (09:46→21:30)
[2023-03-03] MEDS: REMEDY ESSENTIAL ZINC PASTE 113 GM TP SCH ×4 (09:46→21:31)
[2023-03-03] MEDS: METOPROLOL TARTRATE 75 MG GT SCH ×2 (09:46→21:30)
[2023-03-03] MEDS: COLLAGENASE OINT 30 GM TUBE TOP SCH (09:46)
[2023-03-03] MEDS: JEVITY 1.2 1000 ML LIQUID GT PRN (15:10)
[2023-03-03] MEDS: ASCORBIC ACID 500 MG TABLET GT SCH (21:30)
[2023-03-04] VITALS (9 sets, daily range): TEMP 97.5–98.5; O2SAT 95–99
[2023-03-04] MEDS: ALBUTEROL SULFATE 2.5 MG/3 ML NEBU NEB SCH ×4 (01:32→19:35)
[2023-03-04] MEDS: IPRATROPIUM BROMIDE 0.5 MG/2.5 ML NEBU NEB SCH ×4 (01:32→19:35)
[2023-03-04] MEDS: PANTOPRAZOLE ORAL SUSPENSION 40 MG SUSPDR.PKT GT SCH ×2 (05:06→18:38)
[2023-03-04] MEDS: HYDROGEN PEROXIDE 3% 118 ML BOTTLE TP SCH ×2 (09:00→20:37)
[2023-03-04] MEDS: ACIDOPHILUS/BULGARICUS CHEW TAB GT SCH ×2 (09:41→21:31)
[2023-03-04] MEDS: METOPROLOL TARTRATE 75 MG GT SCH ×2 (09:41→21:31)
[2023-03-04] MEDS: levETIRAcetam 500 MG/5 ML LIQUID UDC GT SCH ×2 (09:42→21:31)
[2023-03-04] MEDS: REMEDY ESSENTIAL ZINC PASTE 113 GM TP SCH ×4 (09:42→21:31)
[2023-03-04] MEDS: COLLAGENASE OINT 30 GM TUBE TOP SCH (09:42)
[2023-03-04] MEDS: JEVITY 1.2 1000 ML LIQUID GT PRN (11:53)
[2023-03-04] MEDS: ASCORBIC ACID 500 MG TABLET GT SCH (21:31)
[2023-03-05] VITALS (11 sets, daily range): TEMP 97.5–98.1; O2SAT 95–97
[2023-03-05] MEDS: IPRATROPIUM BROMIDE 0.5 MG/2.5 ML NEBU NEB SCH ×4 (01:36→19:30)
[2023-03-05] MEDS: ALBUTEROL SULFATE 2.5 MG/3 ML NEBU NEB SCH ×4 (01:36→19:31)
[2023-03-05] MEDS: JEVITY 1.2 1000 ML LIQUID GT PRN (05:32)
[2023-03-05] MEDS: PANTOPRAZOLE ORAL SUSPENSION 40 MG SUSPDR.PKT GT SCH ×2 (05:32→18:20)
[2023-03-05] MEDS: HYDROGEN PEROXIDE 3% 118 ML BOTTLE TP SCH ×2 (08:24→21:07)
[2023-03-05] MEDS: ACIDOPHILUS/BULGARICUS CHEW TAB GT SCH ×2 (09:00→21:13)
[2023-03-05] MEDS: levETIRAcetam 500 MG/5 ML LIQUID UDC GT SCH ×2 (09:00→21:13)
[2023-03-05] MEDS: METOPROLOL TARTRATE 75 MG GT SCH ×2 (09:01→21:13)
[2023-03-05] MEDS: COLLAGENASE OINT 30 GM TUBE TOP SCH (09:01)
[2023-03-05] MEDS: REMEDY ESSENTIAL ZINC PASTE 113 GM TP SCH ×4 (09:01→21:13)
[2023-03-05] MEDS: ASCORBIC ACID 500 MG TABLET GT SCH (21:13)
[2023-03-06] VITALS (11 sets, daily range): TEMP 97.5; O2SAT 95–97
[2023-03-06] MEDS: IPRATROPIUM BROMIDE 0.5 MG/2.5 ML NEBU NEB SCH ×4 (01:47→19:29)
[2023-03-06] MEDS: ALBUTEROL SULFATE 2.5 MG/3 ML NEBU NEB SCH ×4 (01:47→19:29)
[2023-03-06] MEDS: PANTOPRAZOLE ORAL SUSPENSION 40 MG SUSPDR.PKT GT SCH ×2 (05:08→17:45)
[2023-03-06] MEDS: ACIDOPHILUS/BULGARICUS CHEW TAB GT SCH ×2 (09:13→21:23)
[2023-03-06] MEDS: levETIRAcetam 500 MG/5 ML LIQUID UDC GT SCH ×2 (09:13→21:23)
[2023-03-06] MEDS: HYDROGEN PEROXIDE 3% 118 ML BOTTLE TP SCH (09:13)
[2023-03-06] MEDS: COLLAGENASE OINT 30 GM TUBE TOP SCH (09:15)
[2023-03-06] MEDS: METOPROLOL TARTRATE 75 MG GT SCH ×2 (09:15→21:23)
[2023-03-06] MEDS: REMEDY ESSENTIAL ZINC PASTE 113 GM TP SCH ×4 (09:16→21:24)
[2023-03-06] MEDS: ASCORBIC ACID 500 MG TABLET GT SCH (21:23)
[2023-03-07] VITALS (12 sets, daily range): TEMP 97.9–98.6; O2SAT 95–97
[2023-03-07] MEDS: HYDROGEN PEROXIDE 3% 118 ML BOTTLE TP SCH ×3 (00:05→23:50)
[2023-03-07] MEDS: ALBUTEROL SULFATE 2.5 MG/3 ML NEBU NEB SCH ×4 (02:07→19:26)
[2023-03-07] MEDS: IPRATROPIUM BROMIDE 0.5 MG/2.5 ML NEBU NEB SCH ×4 (02:07→19:26)
[2023-03-07] MEDS: JEVITY 1.2 1000 ML LIQUID GT PRN (02:36)
[2023-03-07] MEDS: PANTOPRAZOLE ORAL SUSPENSION 40 MG SUSPDR.PKT GT SCH ×2 (05:59→18:00)
[2023-03-07] MEDS: REMEDY ESSENTIAL ZINC PASTE 113 GM TP SCH ×4 (09:55→20:43)
[2023-03-07] MEDS: COLLAGENASE OINT 30 GM TUBE TOP SCH (09:55)
[2023-03-07] MEDS: ACIDOPHILUS/BULGARICUS CHEW TAB GT SCH ×2 (09:55→20:42)
[2023-03-07] MEDS: levETIRAcetam 500 MG/5 ML LIQUID UDC GT SCH ×2 (09:57→20:42)
[2023-03-07] MEDS: METOPROLOL TARTRATE 75 MG GT SCH ×2 (09:59→20:43)
[2023-03-07] MEDS: ASCORBIC ACID 500 MG TABLET GT SCH (20:43)
[2023-03-08] VITALS (11 sets, daily range): TEMP 98–98.8; O2SAT 95–99
[2023-03-08] MEDS: JEVITY 1.2 1000 ML LIQUID GT PRN ×2 (01:39→22:40)
[2023-03-08] MEDS: IPRATROPIUM BROMIDE 0.5 MG/2.5 ML NEBU NEB SCH ×4 (03:54→19:06)
[2023-03-08] MEDS: ALBUTEROL SULFATE 2.5 MG/3 ML NEBU NEB SCH ×4 (03:54→19:06)
[2023-03-08] MEDS: PANTOPRAZOLE ORAL SUSPENSION 40 MG SUSPDR.PKT GT SCH ×2 (05:37→18:05)
[2023-03-08] MEDS: HYDROGEN PEROXIDE 3% 118 ML BOTTLE TP SCH ×2 (07:11→19:06)
[2023-03-08] MEDS: levETIRAcetam 500 MG/5 ML LIQUID UDC GT SCH ×2 (09:00→21:00)
[2023-03-08] MEDS: COLLAGENASE OINT 30 GM TUBE TOP SCH (09:00)
[2023-03-08] MEDS: ACIDOPHILUS/BULGARICUS CHEW TAB GT SCH ×2 (09:00→21:00)
[2023-03-08] MEDS: METOPROLOL TARTRATE 75 MG GT SCH ×2 (09:00→21:00)
[2023-03-08] MEDS: REMEDY ESSENTIAL ZINC PASTE 113 GM TP SCH ×4 (09:00→21:00)
[2023-03-08] MEDS: ASCORBIC ACID 500 MG TABLET GT SCH (21:00)
[2023-03-09] VITALS (9 sets, daily range): TEMP 97.7; O2SAT 94–99
[2023-03-09] MEDS: ALBUTEROL SULFATE 2.5 MG/3 ML NEBU NEB SCH ×4 (01:11→19:14)
[2023-03-09] MEDS: IPRATROPIUM BROMIDE 0.5 MG/2.5 ML NEBU NEB SCH ×4 (01:11→19:14)
[2023-03-09] MEDS: PANTOPRAZOLE ORAL SUSPENSION 40 MG SUSPDR.PKT GT SCH ×2 (05:29→17:01)
[2023-03-09] MEDS: HYDROGEN PEROXIDE 3% 118 ML BOTTLE TP SCH ×2 (07:52→23:06)
[2023-03-09] MEDS: REMEDY ESSENTIAL ZINC PASTE 113 GM TP SCH ×4 (09:00→21:00)
[2023-03-09] MEDS: ACIDOPHILUS/BULGARICUS CHEW TAB GT SCH ×2 (09:00→21:00)
[2023-03-09] MEDS: COLLAGENASE OINT 30 GM TUBE TOP SCH (09:00)
[2023-03-09] MEDS: levETIRAcetam 500 MG/5 ML LIQUID UDC GT SCH ×2 (09:00→21:00)
[2023-03-09] MEDS: METOPROLOL TARTRATE 75 MG GT SCH ×2 (09:00→21:00)
[2023-03-09] MEDS: JEVITY 1.2 1000 ML LIQUID GT PRN (17:36)
[2023-03-09] MEDS: ASCORBIC ACID 500 MG TABLET GT SCH (21:00)
[2023-03-10] VITALS (11 sets, daily range): TEMP 97.9–98.8; O2SAT 96–99
[2023-03-10] MEDS: IPRATROPIUM BROMIDE 0.5 MG/2.5 ML NEBU NEB SCH ×4 (01:25→19:15)
[2023-03-10] MEDS: ALBUTEROL SULFATE 2.5 MG/3 ML NEBU NEB SCH ×4 (01:25→19:15)
[2023-03-10] MEDS: PANTOPRAZOLE ORAL SUSPENSION 40 MG SUSPDR.PKT GT SCH ×2 (05:51→18:10)
[2023-03-10] MEDS: HYDROGEN PEROXIDE 3% 118 ML BOTTLE TP SCH ×2 (08:25→21:13)
[2023-03-10] MEDS: ACIDOPHILUS/BULGARICUS CHEW TAB GT SCH ×2 (09:09→21:00)
[2023-03-10] MEDS: levETIRAcetam 500 MG/5 ML LIQUID UDC GT SCH ×2 (09:10→21:00)
[2023-03-10] MEDS: METOPROLOL TARTRATE 75 MG GT SCH ×2 (09:13→21:00)
[2023-03-10] MEDS: REMEDY ESSENTIAL ZINC PASTE 113 GM TP SCH ×4 (09:13→21:00)
[2023-03-10] MEDS: COLLAGENASE OINT 30 GM TUBE TOP SCH (09:13)
[2023-03-10] MEDS: JEVITY 1.2 1000 ML LIQUID GT PRN (14:02)
[2023-03-10] MEDS: ASCORBIC ACID 500 MG TABLET GT SCH (21:00)
[2023-03-11] VITALS (12 sets, daily range): TEMP 98–98.5; O2SAT 97–99
[2023-03-11] MEDS: IPRATROPIUM BROMIDE 0.5 MG/2.5 ML NEBU NEB SCH ×4 (01:49→19:22)
[2023-03-11] MEDS: ALBUTEROL SULFATE 2.5 MG/3 ML NEBU NEB SCH ×4 (01:49→19:23)
[2023-03-11] MEDS: PANTOPRAZOLE ORAL SUSPENSION 40 MG SUSPDR.PKT GT SCH ×2 (05:54→18:17)
[2023-03-11] MEDS: JEVITY 1.2 1000 ML LIQUID GT PRN (06:10)
[2023-03-11] MEDS: HYDROGEN PEROXIDE 3% 118 ML BOTTLE TP SCH (08:45)
[2023-03-11] MEDS: COLLAGENASE OINT 30 GM TUBE TOP SCH (09:00)
[2023-03-11] MEDS: ACIDOPHILUS/BULGARICUS CHEW TAB GT SCH ×2 (09:37→21:54)
[2023-03-11] MEDS: levETIRAcetam 500 MG/5 ML LIQUID UDC GT SCH ×2 (09:37→21:54)
[2023-03-11] MEDS: METOPROLOL TARTRATE 75 MG GT SCH ×2 (09:38→21:00)
[2023-03-11] MEDS: REMEDY ESSENTIAL ZINC PASTE 113 GM TP SCH ×4 (09:39→21:57)
[2023-03-11] MEDS: ASCORBIC ACID 500 MG TABLET GT SCH (21:56)
[2023-03-12] VITALS (11 sets, daily range): TEMP 98–98.1; O2SAT 96–99
[2023-03-12] MEDS: HYDROGEN PEROXIDE 3% 118 ML BOTTLE TP SCH ×3 (00:42→21:56)
[2023-03-12] MEDS: ALBUTEROL SULFATE 2.5 MG/3 ML NEBU NEB SCH ×4 (01:48→19:25)
[2023-03-12] MEDS: IPRATROPIUM BROMIDE 0.5 MG/2.5 ML NEBU NEB SCH ×4 (01:48→19:24)
[2023-03-12] MEDS: JEVITY 1.2 1000 ML LIQUID GT PRN ×2 (02:00→22:53)
[2023-03-12] MEDS: PANTOPRAZOLE ORAL SUSPENSION 40 MG SUSPDR.PKT GT SCH ×2 (05:13→17:21)
[2023-03-12] MEDS: ACIDOPHILUS/BULGARICUS CHEW TAB GT SCH ×2 (08:34→21:25)
[2023-03-12] MEDS: REMEDY ESSENTIAL ZINC PASTE 113 GM TP SCH ×4 (08:36→21:28)
[2023-03-12] MEDS: levETIRAcetam 500 MG/5 ML LIQUID UDC GT SCH ×2 (08:36→21:00)
[2023-03-12] MEDS: METOPROLOL TARTRATE 75 MG GT SCH ×2 (08:37→21:28)
[2023-03-12] MEDS: COLLAGENASE OINT 30 GM TUBE TOP SCH (09:00)
[2023-03-12] MEDS: ASCORBIC ACID 500 MG TABLET GT SCH (21:28)
[2023-03-13] VITALS (10 sets, daily range): TEMP 97.8–98.8; O2SAT 96–100
[2023-03-13] MEDS: ALBUTEROL SULFATE 2.5 MG/3 ML NEBU NEB SCH ×4 (01:17→19:07)
[2023-03-13] MEDS: IPRATROPIUM BROMIDE 0.5 MG/2.5 ML NEBU NEB SCH ×4 (01:17→19:07)
[2023-03-13] MEDS: PANTOPRAZOLE ORAL SUSPENSION 40 MG SUSPDR.PKT GT SCH ×2 (05:04→17:03)
[2023-03-13] MEDS: HYDROGEN PEROXIDE 3% 118 ML BOTTLE TP SCH ×2 (09:00→21:26)
[2023-03-13] MEDS: REMEDY ESSENTIAL ZINC PASTE 113 GM TP SCH ×4 (09:59→21:27)
[2023-03-13] MEDS: ACIDOPHILUS/BULGARICUS CHEW TAB GT SCH ×2 (09:59→21:23)
[2023-03-13] MEDS: COLLAGENASE OINT 30 GM TUBE TOP SCH (09:59)
[2023-03-13] MEDS: levETIRAcetam 500 MG/5 ML LIQUID UDC GT SCH ×2 (09:59→21:25)
[2023-03-13] MEDS: METOPROLOL TARTRATE 75 MG GT SCH ×2 (10:01→21:26)
[2023-03-13] MEDS: JEVITY 1.2 1000 ML LIQUID GT PRN (16:48)
[2023-03-13] MEDS: ASCORBIC ACID 500 MG TABLET GT SCH (21:26)
[2023-03-14] VITALS (9 sets, daily range): TEMP 97.7–97.9; O2SAT 98–100
[2023-03-14] MEDS: IPRATROPIUM BROMIDE 0.5 MG/2.5 ML NEBU NEB SCH ×4 (01:07→20:11)
[2023-03-14] MEDS: ALBUTEROL SULFATE 2.5 MG/3 ML NEBU NEB SCH ×4 (01:07→20:11)
[2023-03-14] MEDS: PANTOPRAZOLE ORAL SUSPENSION 40 MG SUSPDR.PKT GT SCH ×2 (05:48→17:03)
[2023-03-14] MEDS: HYDROGEN PEROXIDE 3% 118 ML BOTTLE TP SCH (09:22)
[2023-03-14] MEDS: levETIRAcetam 500 MG/5 ML LIQUID UDC GT SCH ×2 (09:26→21:19)
[2023-03-14] MEDS: COLLAGENASE OINT 30 GM TUBE TOP SCH (09:26)
[2023-03-14] MEDS: METOPROLOL TARTRATE 75 MG GT SCH ×2 (09:26→21:20)
[2023-03-14] MEDS: REMEDY ESSENTIAL ZINC PASTE 113 GM TP SCH ×4 (09:26→21:21)
[2023-03-14] MEDS: ACIDOPHILUS/BULGARICUS CHEW TAB GT SCH ×2 (09:26→21:19)
[2023-03-14] MEDS: ASCORBIC ACID 500 MG TABLET GT SCH (21:20)
[2023-03-15] VITALS (10 sets, daily range): BP systolic 109; BP diastolic 77; TEMP 97–97.7; O2SAT 96–99
[2023-03-15] MEDS: HYDROGEN PEROXIDE 3% 118 ML BOTTLE TP SCH ×3 (00:59→20:24)
[2023-03-15] MEDS: IPRATROPIUM BROMIDE 0.5 MG/2.5 ML NEBU NEB SCH ×4 (01:26→20:24)
[2023-03-15] MEDS: ALBUTEROL SULFATE 2.5 MG/3 ML NEBU NEB SCH ×4 (01:27→20:24)
[2023-03-15] MEDS: JEVITY 1.2 1000 ML LIQUID GT PRN (06:59)
[2023-03-15] MEDS: PANTOPRAZOLE ORAL SUSPENSION 40 MG SUSPDR.PKT GT SCH ×2 (06:59→17:26)
[2023-03-15] MEDS: REMEDY ESSENTIAL ZINC PASTE 113 GM TP SCH ×4 (08:28→20:51)
[2023-03-15] MEDS: levETIRAcetam 500 MG/5 ML LIQUID UDC GT SCH ×2 (08:28→20:50)
[2023-03-15] MEDS: ACIDOPHILUS/BULGARICUS CHEW TAB GT SCH ×2 (08:28→20:50)
[2023-03-15] MEDS: METOPROLOL TARTRATE 75 MG GT SCH ×2 (08:28→20:51)
[2023-03-15] MEDS: ASCORBIC ACID 500 MG TABLET GT SCH (20:51)
[2023-03-16] VITALS (11 sets, daily range): TEMP 98.1–98.2; O2SAT 96–99
[2023-03-16] MEDS: ALBUTEROL SULFATE 2.5 MG/3 ML NEBU NEB SCH ×4 (01:30→19:36)
[2023-03-16] MEDS: IPRATROPIUM BROMIDE 0.5 MG/2.5 ML NEBU NEB SCH ×4 (01:30→19:36)
[2023-03-16] MEDS: PANTOPRAZOLE ORAL SUSPENSION 40 MG SUSPDR.PKT GT SCH ×2 (05:20→18:31)
[2023-03-16] MEDS: HYDROGEN PEROXIDE 3% 118 ML BOTTLE TP SCH ×2 (08:24→22:24)
[2023-03-16] MEDS: ACIDOPHILUS/BULGARICUS CHEW TAB GT SCH ×2 (08:44→21:20)
[2023-03-16] MEDS: levETIRAcetam 500 MG/5 ML LIQUID UDC GT SCH ×2 (08:44→21:20)
[2023-03-16] MEDS: METOPROLOL TARTRATE 75 MG GT SCH ×2 (08:46→21:21)
[2023-03-16] MEDS: REMEDY ESSENTIAL ZINC PASTE 113 GM TP SCH ×4 (08:46→21:21)
[2023-03-16] MEDS: JEVITY 1.2 1000 ML LIQUID GT PRN (14:40)
[2023-03-16] MEDS: ASCORBIC ACID 500 MG TABLET GT SCH (21:21)
[2023-03-17] VITALS (12 sets, daily range): TEMP 97–98; O2SAT 96–100
[2023-03-17] MEDS: IPRATROPIUM BROMIDE 0.5 MG/2.5 ML NEBU NEB SCH ×4 (01:45→19:07)
[2023-03-17] MEDS: ALBUTEROL SULFATE 2.5 MG/3 ML NEBU NEB SCH ×4 (01:45→19:07)
[2023-03-17] MEDS: PANTOPRAZOLE ORAL SUSPENSION 40 MG SUSPDR.PKT GT SCH ×2 (05:54→17:42)
[2023-03-17] MEDS: ACIDOPHILUS/BULGARICUS CHEW TAB GT SCH ×2 (08:39→21:48)
[2023-03-17] MEDS: levETIRAcetam 500 MG/5 ML LIQUID UDC GT SCH ×2 (08:39→21:48)
[2023-03-17] MEDS: METOPROLOL TARTRATE 75 MG GT SCH ×2 (08:40→21:48)
[2023-03-17] MEDS: REMEDY ESSENTIAL ZINC PASTE 113 GM TP SCH ×4 (08:40→21:49)
[2023-03-17] MEDS: HYDROGEN PEROXIDE 3% 118 ML BOTTLE TP SCH ×2 (09:00→20:25)
[2023-03-17] MEDS: ASCORBIC ACID 500 MG TABLET GT SCH (21:49)
[2023-03-18] VITALS (10 sets, daily range): TEMP 98.1–98.8; O2SAT 98–100
[2023-03-18] MEDS: IPRATROPIUM BROMIDE 0.5 MG/2.5 ML NEBU NEB SCH ×4 (00:34→20:20)
[2023-03-18] MEDS: ALBUTEROL SULFATE 2.5 MG/3 ML NEBU NEB SCH ×4 (00:34→20:20)
[2023-03-18] MEDS: JEVITY 1.2 1000 ML LIQUID GT PRN (04:18)
[2023-03-18] MEDS: PANTOPRAZOLE ORAL SUSPENSION 40 MG SUSPDR.PKT GT SCH ×2 (05:46→17:05)
[2023-03-18] MEDS: HYDROGEN PEROXIDE 3% 118 ML BOTTLE TP SCH ×2 (08:55→21:30)
[2023-03-18] MEDS: METOPROLOL TARTRATE 75 MG GT SCH ×2 (09:00→21:54)
[2023-03-18] MEDS: levETIRAcetam 500 MG/5 ML LIQUID UDC GT SCH ×2 (09:46→21:53)
[2023-03-18] MEDS: ACIDOPHILUS/BULGARICUS CHEW TAB GT SCH ×2 (09:46→21:53)
[2023-03-18] MEDS: REMEDY ESSENTIAL ZINC PASTE 113 GM TP SCH ×4 (09:47→21:54)
[2023-03-18] MEDS: ASCORBIC ACID 500 MG TABLET GT SCH (21:54)
[2023-03-19] VITALS (10 sets, daily range): TEMP 97.8–98.1; O2SAT 97–99
[2023-03-19] MEDS: IPRATROPIUM BROMIDE 0.5 MG/2.5 ML NEBU NEB SCH ×4 (01:22→20:15)
[2023-03-19] MEDS: ALBUTEROL SULFATE 2.5 MG/3 ML NEBU NEB SCH ×4 (01:22→20:15)
[2023-03-19] MEDS: JEVITY 1.2 1000 ML LIQUID GT PRN (02:54)
[2023-03-19] MEDS: PANTOPRAZOLE ORAL SUSPENSION 40 MG SUSPDR.PKT GT SCH ×2 (05:17→17:18)
[2023-03-19] MEDS: HYDROGEN PEROXIDE 3% 118 ML BOTTLE TP SCH ×2 (07:35→21:40)
[2023-03-19] MEDS: levETIRAcetam 500 MG/5 ML LIQUID UDC GT SCH ×2 (08:58→21:48)
[2023-03-19] MEDS: ACIDOPHILUS/BULGARICUS CHEW TAB GT SCH ×2 (08:58→21:48)
[2023-03-19] MEDS: REMEDY ESSENTIAL ZINC PASTE 113 GM TP SCH ×4 (08:58→21:49)
[2023-03-19] MEDS: METOPROLOL TARTRATE 75 MG GT SCH ×2 (08:59→21:48)
[2023-03-19] MEDS: ASCORBIC ACID 500 MG TABLET GT SCH (21:49)
[2023-03-20] VITALS (10 sets, daily range): TEMP 97.9–98; O2SAT 97–99
[2023-03-20] MEDS: IPRATROPIUM BROMIDE 0.5 MG/2.5 ML NEBU NEB SCH ×4 (01:43→19:20)
[2023-03-20] MEDS: ALBUTEROL SULFATE 2.5 MG/3 ML NEBU NEB SCH ×4 (01:43→19:20)
[2023-03-20] MEDS: PANTOPRAZOLE ORAL SUSPENSION 40 MG SUSPDR.PKT GT SCH ×2 (05:34→17:23)
[2023-03-20] MEDS: HYDROGEN PEROXIDE 3% 118 ML BOTTLE TP SCH ×2 (07:27→19:20)
[2023-03-20] MEDS: METOPROLOL TARTRATE 75 MG GT SCH ×2 (09:00→21:20)
[2023-03-20] MEDS: ACIDOPHILUS/BULGARICUS CHEW TAB GT SCH ×2 (09:16→21:19)
[2023-03-20] MEDS: levETIRAcetam 500 MG/5 ML LIQUID UDC GT SCH ×2 (09:16→21:19)
[2023-03-20] MEDS: REMEDY ESSENTIAL ZINC PASTE 113 GM TP SCH ×4 (09:16→21:20)
[2023-03-20] MEDS: ASCORBIC ACID 500 MG TABLET GT SCH (21:20)
[2023-03-21] VITALS (10 sets, daily range): TEMP 98–98.6; O2SAT 98–99
[2023-03-21] MEDS: ALBUTEROL SULFATE 2.5 MG/3 ML NEBU NEB SCH ×4 (02:07→19:25)
[2023-03-21] MEDS: IPRATROPIUM BROMIDE 0.5 MG/2.5 ML NEBU NEB SCH ×4 (02:07→19:25)
[2023-03-21] MEDS: PANTOPRAZOLE ORAL SUSPENSION 40 MG SUSPDR.PKT GT SCH ×2 (05:07→17:02)
[2023-03-21] MEDS: HYDROGEN PEROXIDE 3% 118 ML BOTTLE TP SCH ×2 (07:11→20:45)
[2023-03-21] MEDS: levETIRAcetam 500 MG/5 ML LIQUID UDC GT SCH ×2 (08:26→21:19)
[2023-03-21] MEDS: ACIDOPHILUS/BULGARICUS CHEW TAB GT SCH ×2 (08:26→21:19)
[2023-03-21] MEDS: METOPROLOL TARTRATE 75 MG GT SCH ×2 (08:27→21:20)
[2023-03-21] MEDS: REMEDY ESSENTIAL ZINC PASTE 113 GM TP SCH ×4 (08:28→21:21)
[2023-03-21] MEDS: ASCORBIC ACID 500 MG TABLET GT SCH (21:20)
[2023-03-22] VITALS (10 sets, daily range): TEMP 97.5–98; O2SAT 98–99
[2023-03-22] MEDS: IPRATROPIUM BROMIDE 0.5 MG/2.5 ML NEBU NEB SCH ×4 (01:09→20:00)
[2023-03-22] MEDS: ALBUTEROL SULFATE 2.5 MG/3 ML NEBU NEB SCH ×4 (01:09→20:00)
[2023-03-22] MEDS: PANTOPRAZOLE ORAL SUSPENSION 40 MG SUSPDR.PKT GT SCH ×2 (05:21→18:20)
[2023-03-22] MEDS: HYDROGEN PEROXIDE 3% 118 ML BOTTLE TP SCH ×2 (09:31→20:00)
[2023-03-22] MEDS: ACIDOPHILUS/BULGARICUS CHEW TAB GT SCH ×2 (10:00→21:15)
[2023-03-22] MEDS: REMEDY ESSENTIAL ZINC PASTE 113 GM TP SCH ×4 (10:00→21:14)
[2023-03-22] MEDS: METOPROLOL TARTRATE 75 MG GT SCH ×2 (10:00→21:14)
[2023-03-22] MEDS: levETIRAcetam 500 MG/5 ML LIQUID UDC GT SCH ×2 (10:00→21:13)
[2023-03-22] MEDS: ACETAMINOPHEN 650 MG/20 ML UDC- SA PATIENTS-PAIN ONLY GT PRN (10:29)
[2023-03-22] MEDS: JEVITY 1.2 1000 ML LIQUID GT PRN (18:00)
[2023-03-22] MEDS: ASCORBIC ACID 500 MG TABLET GT SCH (21:14)
[2023-03-23] VITALS (10 sets, daily range): TEMP 97.8–98.7; O2SAT 97–99
[2023-03-23] MEDS: IPRATROPIUM BROMIDE 0.5 MG/2.5 ML NEBU NEB SCH ×4 (01:28→19:30)
[2023-03-23] MEDS: ALBUTEROL SULFATE 2.5 MG/3 ML NEBU NEB SCH ×4 (01:28→19:30)
[2023-03-23] MEDS: PANTOPRAZOLE ORAL SUSPENSION 40 MG SUSPDR.PKT GT SCH ×2 (05:55→17:21)
[2023-03-23] MEDS: HYDROGEN PEROXIDE 3% 118 ML BOTTLE TP SCH ×2 (07:30→19:30)
[2023-03-23] MEDS: ACIDOPHILUS/BULGARICUS CHEW TAB GT SCH ×2 (09:00→21:58)
[2023-03-23] MEDS: REMEDY ESSENTIAL ZINC PASTE 113 GM TP SCH ×4 (09:00→21:58)
[2023-03-23] MEDS: levETIRAcetam 500 MG/5 ML LIQUID UDC GT SCH ×2 (09:00→21:59)
[2023-03-23] MEDS: METOPROLOL TARTRATE 75 MG GT SCH ×2 (09:00→21:00)
[2023-03-23] MEDS: JEVITY 1.2 1000 ML LIQUID GT PRN (12:25)
[2023-03-23] MEDS: ASCORBIC ACID 500 MG TABLET GT SCH (21:58)
[2023-03-24] VITALS (10 sets, daily range): TEMP 98.3–98.4; O2SAT 96–99
[2023-03-24] MEDS: IPRATROPIUM BROMIDE 0.5 MG/2.5 ML NEBU NEB SCH ×4 (00:53→19:03)
[2023-03-24] MEDS: ALBUTEROL SULFATE 2.5 MG/3 ML NEBU NEB SCH ×4 (00:53→19:03)
[2023-03-24] MEDS: PANTOPRAZOLE ORAL SUSPENSION 40 MG SUSPDR.PKT GT SCH ×2 (05:16→17:33)
[2023-03-24] MEDS: JEVITY 1.2 1000 ML LIQUID GT PRN ×2 (05:33→22:56)
[2023-03-24] MEDS: HYDROGEN PEROXIDE 3% 118 ML BOTTLE TP SCH ×2 (07:16→21:49)
[2023-03-24] MEDS: ACIDOPHILUS/BULGARICUS CHEW TAB GT SCH ×2 (09:11→21:32)
[2023-03-24] MEDS: levETIRAcetam 500 MG/5 ML LIQUID UDC GT SCH ×2 (09:12→21:33)
[2023-03-24] MEDS: REMEDY ESSENTIAL ZINC PASTE 113 GM TP SCH ×4 (09:13→21:33)
[2023-03-24] MEDS: METOPROLOL TARTRATE 75 MG GT SCH ×2 (09:13→21:34)
[2023-03-24] MEDS: ASCORBIC ACID 500 MG TABLET GT SCH (21:33)
[2023-03-25] VITALS (11 sets, daily range): TEMP 97.3–97.6; O2SAT 98–99
[2023-03-25] MEDS: IPRATROPIUM BROMIDE 0.5 MG/2.5 ML NEBU NEB SCH ×4 (01:03→20:48)
[2023-03-25] MEDS: ALBUTEROL SULFATE 2.5 MG/3 ML NEBU NEB SCH ×4 (01:03→20:48)
[2023-03-25] MEDS: PANTOPRAZOLE ORAL SUSPENSION 40 MG SUSPDR.PKT GT SCH ×2 (06:02→17:30)
[2023-03-25] MEDS: HYDROGEN PEROXIDE 3% 118 ML BOTTLE TP SCH ×2 (07:23→23:06)
[2023-03-25] MEDS: REMEDY ESSENTIAL ZINC PASTE 113 GM TP SCH ×4 (09:16→21:00)
[2023-03-25] MEDS: levETIRAcetam 500 MG/5 ML LIQUID UDC GT SCH ×2 (09:16→21:00)
[2023-03-25] MEDS: ACIDOPHILUS/BULGARICUS CHEW TAB GT SCH ×2 (09:16→21:00)
[2023-03-25] MEDS: METOPROLOL TARTRATE 75 MG GT SCH ×2 (09:16→21:00)
[2023-03-25] MEDS: JEVITY 1.2 1000 ML LIQUID GT PRN (19:43)
[2023-03-25] MEDS: ASCORBIC ACID 500 MG TABLET GT SCH (21:00)
[2023-03-26] VITALS (10 sets, daily range): TEMP 96.2–97; O2SAT 96–99
[2023-03-26] MEDS: IPRATROPIUM BROMIDE 0.5 MG/2.5 ML NEBU NEB SCH ×4 (01:22→19:16)
[2023-03-26] MEDS: ALBUTEROL SULFATE 2.5 MG/3 ML NEBU NEB SCH ×4 (01:22→19:16)
[2023-03-26] MEDS: PANTOPRAZOLE ORAL SUSPENSION 40 MG SUSPDR.PKT GT SCH ×2 (05:12→17:23)
[2023-03-26] MEDS: levETIRAcetam 500 MG/5 ML LIQUID UDC GT SCH ×2 (08:58→21:41)
[2023-03-26] MEDS: ACIDOPHILUS/BULGARICUS CHEW TAB GT SCH ×2 (08:58→21:41)
[2023-03-26] MEDS: METOPROLOL TARTRATE 75 MG GT SCH ×2 (08:59→21:42)
[2023-03-26] MEDS: REMEDY ESSENTIAL ZINC PASTE 113 GM TP SCH ×4 (08:59→21:42)
[2023-03-26] MEDS: HYDROGEN PEROXIDE 3% 118 ML BOTTLE TP SCH ×2 (09:26→19:16)
[2023-03-26] MEDS: JEVITY 1.2 1000 ML LIQUID GT PRN (16:02)
[2023-03-26] MEDS: ASCORBIC ACID 500 MG TABLET GT SCH (21:42)
[2023-03-27] VITALS (9 sets, daily range): TEMP 97.9; O2SAT 96–99
[2023-03-27] MEDS: ALBUTEROL SULFATE 2.5 MG/3 ML NEBU NEB SCH ×4 (01:10→19:25)
[2023-03-27] MEDS: IPRATROPIUM BROMIDE 0.5 MG/2.5 ML NEBU NEB SCH ×4 (01:10→19:25)
[2023-03-27] MEDS: PANTOPRAZOLE ORAL SUSPENSION 40 MG SUSPDR.PKT GT SCH ×2 (05:17→17:37)
[2023-03-27] MEDS: HYDROGEN PEROXIDE 3% 118 ML BOTTLE TP SCH ×2 (07:17→19:25)
[2023-03-27] MEDS: ACIDOPHILUS/BULGARICUS CHEW TAB GT SCH ×2 (08:30→20:53)
[2023-03-27] MEDS: METOPROLOL TARTRATE 75 MG GT SCH ×2 (08:31→20:53)
[2023-03-27] MEDS: levETIRAcetam 500 MG/5 ML LIQUID UDC GT SCH ×2 (08:31→20:53)
[2023-03-27] MEDS: REMEDY ESSENTIAL ZINC PASTE 113 GM TP SCH ×4 (08:31→20:53)
[2023-03-27] MEDS: JEVITY 1.2 1000 ML LIQUID GT PRN (13:49)
[2023-03-27] MEDS: ACETAMINOPHEN 650 MG/20 ML UDC- SA PATIENTS-PAIN ONLY GT PRN (13:58)
[2023-03-27] MEDS: ASCORBIC ACID 500 MG TABLET GT SCH (20:53)
[2023-03-28] VITALS (9 sets, daily range): TEMP 97.4–97.7; O2SAT 96–99
[2023-03-28] MEDS: ALBUTEROL SULFATE 2.5 MG/3 ML NEBU NEB SCH ×4 (01:07→20:24)
[2023-03-28] MEDS: IPRATROPIUM BROMIDE 0.5 MG/2.5 ML NEBU NEB SCH ×4 (01:07→20:24)
[2023-03-28] MEDS: PANTOPRAZOLE ORAL SUSPENSION 40 MG SUSPDR.PKT GT SCH ×2 (05:20→18:11)
[2023-03-28] MEDS: HYDROGEN PEROXIDE 3% 118 ML BOTTLE TP SCH ×2 (07:13→20:24)
[2023-03-28] MEDS: METOPROLOL TARTRATE 75 MG GT SCH ×2 (09:00→21:01)
[2023-03-28] MEDS: REMEDY ESSENTIAL ZINC PASTE 113 GM TP SCH ×4 (09:00→21:01)
[2023-03-28] MEDS: ACIDOPHILUS/BULGARICUS CHEW TAB GT SCH ×2 (09:00→21:00)
[2023-03-28] MEDS: levETIRAcetam 500 MG/5 ML LIQUID UDC GT SCH ×2 (09:00→21:00)
[2023-03-28] MEDS: JEVITY 1.2 1000 ML LIQUID GT PRN (10:43)
[2023-03-28] MEDS: ASCORBIC ACID 500 MG TABLET GT SCH (21:01)
[2023-03-29] VITALS (9 sets, daily range): TEMP 98; O2SAT 96–99
[2023-03-29] MEDS: IPRATROPIUM BROMIDE 0.5 MG/2.5 ML NEBU NEB SCH ×4 (01:30→19:25)
[2023-03-29] MEDS: ALBUTEROL SULFATE 2.5 MG/3 ML NEBU NEB SCH ×4 (01:30→19:25)
[2023-03-29] MEDS: PANTOPRAZOLE ORAL SUSPENSION 40 MG SUSPDR.PKT GT SCH ×2 (05:12→18:08)
[2023-03-29] MEDS: HYDROGEN PEROXIDE 3% 118 ML BOTTLE TP SCH ×2 (09:00→19:25)
[2023-03-29] MEDS: ACIDOPHILUS/BULGARICUS CHEW TAB GT SCH ×2 (09:48→21:41)
[2023-03-29] MEDS: levETIRAcetam 500 MG/5 ML LIQUID UDC GT SCH ×2 (09:49→21:41)
[2023-03-29] MEDS: METOPROLOL TARTRATE 75 MG GT SCH ×2 (09:51→21:41)
[2023-03-29] MEDS: REMEDY ESSENTIAL ZINC PASTE 113 GM TP SCH ×4 (09:52→21:41)
[2023-03-29] MEDS: JEVITY 1.2 1000 ML LIQUID GT PRN (09:52)
[2023-03-29] MEDS: ASCORBIC ACID 500 MG TABLET GT SCH (21:41)
[2023-03-30] VITALS (10 sets, daily range): TEMP 97.8–98.2; O2SAT 96–99
[2023-03-30] MEDS: IPRATROPIUM BROMIDE 0.5 MG/2.5 ML NEBU NEB SCH ×4 (01:35→19:40)
[2023-03-30] MEDS: ALBUTEROL SULFATE 2.5 MG/3 ML NEBU NEB SCH ×4 (01:35→19:40)
[2023-03-30] MEDS: PANTOPRAZOLE ORAL SUSPENSION 40 MG SUSPDR.PKT GT SCH ×2 (05:33→18:19)
[2023-03-30] MEDS: HYDROGEN PEROXIDE 3% 118 ML BOTTLE TP SCH ×2 (07:14→20:52)
[2023-03-30] MEDS: ACIDOPHILUS/BULGARICUS CHEW TAB GT SCH ×2 (09:39→21:00)
[2023-03-30] MEDS: levETIRAcetam 500 MG/5 ML LIQUID UDC GT SCH ×2 (09:39→21:00)
[2023-03-30] MEDS: REMEDY ESSENTIAL ZINC PASTE 113 GM TP SCH ×4 (09:41→21:00)
[2023-03-30] MEDS: METOPROLOL TARTRATE 75 MG GT SCH ×2 (09:41→21:00)
[2023-03-30] MEDS: JEVITY 1.2 1000 ML LIQUID GT PRN (14:57)
[2023-03-30] MEDS: ASCORBIC ACID 500 MG TABLET GT SCH (21:00)
[2023-03-31] VITALS (10 sets, daily range): TEMP 98.1; O2SAT 96–99
[2023-03-31] MEDS: ALBUTEROL SULFATE 2.5 MG/3 ML NEBU NEB SCH ×4 (00:45→19:27)
[2023-03-31] MEDS: IPRATROPIUM BROMIDE 0.5 MG/2.5 ML NEBU NEB SCH ×4 (00:45→19:27)
[2023-03-31] MEDS: PANTOPRAZOLE ORAL SUSPENSION 40 MG SUSPDR.PKT GT SCH ×3 (05:46→18:07)
[2023-03-31] MEDS: HYDROGEN PEROXIDE 3% 118 ML BOTTLE TP SCH ×2 (07:18→19:27)
[2023-03-31] MEDS: ACIDOPHILUS/BULGARICUS CHEW TAB GT SCH ×2 (09:00→21:12)
[2023-03-31] MEDS: levETIRAcetam 500 MG/5 ML LIQUID UDC GT SCH ×2 (09:00→21:13)
[2023-03-31] MEDS: REMEDY ESSENTIAL ZINC PASTE 113 GM TP SCH ×4 (09:00→21:15)
[2023-03-31] MEDS: METOPROLOL TARTRATE 75 MG GT SCH ×2 (09:00→21:15)
[2023-03-31] MEDS: JEVITY 1.2 1000 ML LIQUID GT PRN (17:58)
[2023-03-31] MEDS: ASCORBIC ACID 500 MG TABLET GT SCH (21:15)
[2023-04-01] VITALS (10 sets, daily range): TEMP 97.9–98; O2SAT 97–99
[2023-04-01] MEDS: ALBUTEROL SULFATE 2.5 MG/3 ML NEBU NEB SCH ×4 (01:06→19:18)
[2023-04-01] MEDS: IPRATROPIUM BROMIDE 0.5 MG/2.5 ML NEBU NEB SCH ×4 (01:06→19:18)
[2023-04-01] MEDS: PANTOPRAZOLE ORAL SUSPENSION 40 MG SUSPDR.PKT GT SCH ×2 (05:44→17:47)
[2023-04-01] MEDS: levETIRAcetam 500 MG/5 ML LIQUID UDC GT SCH ×2 (09:00→21:50)
[2023-04-01] MEDS: ACIDOPHILUS/BULGARICUS CHEW TAB GT SCH ×2 (09:00→21:50)
[2023-04-01] MEDS: METOPROLOL TARTRATE 75 MG GT SCH ×2 (09:00→21:51)
[2023-04-01] MEDS: REMEDY ESSENTIAL ZINC PASTE 113 GM TP SCH ×4 (09:00→21:51)
[2023-04-01] MEDS: HYDROGEN PEROXIDE 3% 118 ML BOTTLE TP SCH ×2 (09:14→19:19)
[2023-04-01] MEDS: JEVITY 1.2 1000 ML LIQUID GT PRN (17:48)
[2023-04-01] MEDS: ASCORBIC ACID 500 MG TABLET GT SCH (21:51)
[2023-04-02] VITALS (10 sets, daily range): TEMP 97.4–97.9; O2SAT 96–99
[2023-04-02] MEDS: IPRATROPIUM BROMIDE 0.5 MG/2.5 ML NEBU NEB SCH ×4 (00:50→19:20)
[2023-04-02] MEDS: ALBUTEROL SULFATE 2.5 MG/3 ML NEBU NEB SCH ×4 (00:50→19:20)
[2023-04-02] MEDS: PANTOPRAZOLE ORAL SUSPENSION 40 MG SUSPDR.PKT GT SCH ×2 (05:58→17:33)
[2023-04-02] MEDS: HYDROGEN PEROXIDE 3% 118 ML BOTTLE TP SCH ×2 (07:09→21:22)
[2023-04-02] MEDS: levETIRAcetam 500 MG/5 ML LIQUID UDC GT SCH ×2 (09:03→21:38)
[2023-04-02] MEDS: ACIDOPHILUS/BULGARICUS CHEW TAB GT SCH ×2 (09:03→21:38)
[2023-04-02] MEDS: METOPROLOL TARTRATE 75 MG GT SCH ×2 (09:04→21:39)
[2023-04-02] MEDS: REMEDY ESSENTIAL ZINC PASTE 113 GM TP SCH ×4 (09:04→21:38)
[2023-04-02] MEDS: JEVITY 1.2 1000 ML LIQUID GT PRN (13:44)
[2023-04-02] MEDS: ASCORBIC ACID 500 MG TABLET GT SCH (21:38)
[2023-04-03] VITALS (10 sets, daily range): TEMP 98; O2SAT 97–99
[2023-04-03] MEDS: IPRATROPIUM BROMIDE 0.5 MG/2.5 ML NEBU NEB SCH ×4 (01:05→19:26)
[2023-04-03] MEDS: ALBUTEROL SULFATE 2.5 MG/3 ML NEBU NEB SCH ×4 (01:05→19:26)
[2023-04-03] MEDS: PANTOPRAZOLE ORAL SUSPENSION 40 MG SUSPDR.PKT GT SCH ×2 (05:16→18:42)
[2023-04-03] MEDS: HYDROGEN PEROXIDE 3% 118 ML BOTTLE TP SCH ×2 (07:57→19:26)
[2023-04-03] MEDS: METOPROLOL TARTRATE 75 MG GT SCH ×2 (09:59→21:00)
[2023-04-03] MEDS: levETIRAcetam 500 MG/5 ML LIQUID UDC GT SCH ×2 (09:59→21:00)
[2023-04-03] MEDS: REMEDY ESSENTIAL ZINC PASTE 113 GM TP SCH ×4 (09:59→21:00)
[2023-04-03] MEDS: ACIDOPHILUS/BULGARICUS CHEW TAB GT SCH ×2 (09:59→21:00)
[2023-04-03] MEDS: JEVITY 1.2 1000 ML LIQUID GT PRN (10:30)
[2023-04-03] MEDS: ASCORBIC ACID 500 MG TABLET GT SCH (21:00)
[2023-04-04] VITALS (10 sets, daily range): TEMP 98.1; O2SAT 96–99
[2023-04-04] MEDS: ALBUTEROL SULFATE 2.5 MG/3 ML NEBU NEB SCH ×4 (01:07→19:20)
[2023-04-04] MEDS: IPRATROPIUM BROMIDE 0.5 MG/2.5 ML NEBU NEB SCH ×4 (01:07→19:20)
[2023-04-04] MEDS: PANTOPRAZOLE ORAL SUSPENSION 40 MG SUSPDR.PKT GT SCH ×2 (05:24→18:14)
[2023-04-04] MEDS: HYDROGEN PEROXIDE 3% 118 ML BOTTLE TP SCH ×2 (07:48→20:43)
[2023-04-04] MEDS: ACIDOPHILUS/BULGARICUS CHEW TAB GT SCH ×2 (09:29→20:39)
[2023-04-04] MEDS: levETIRAcetam 500 MG/5 ML LIQUID UDC GT SCH ×2 (09:29→20:39)
[2023-04-04] MEDS: METOPROLOL TARTRATE 75 MG GT SCH ×2 (09:31→20:39)
[2023-04-04] MEDS: REMEDY ESSENTIAL ZINC PASTE 113 GM TP SCH ×4 (09:32→21:08)
[2023-04-04] MEDS: ASCORBIC ACID 500 MG TABLET GT SCH (20:40)
[2023-04-04] MEDS: JEVITY 1.2 1000 ML LIQUID GT PRN (22:46)
[2023-04-05] VITALS (10 sets, daily range): TEMP 98.1–98.3; O2SAT 96–99
[2023-04-05] MEDS: ALBUTEROL SULFATE 2.5 MG/3 ML NEBU NEB SCH ×4 (00:50→19:21)
[2023-04-05] MEDS: IPRATROPIUM BROMIDE 0.5 MG/2.5 ML NEBU NEB SCH ×4 (00:50→19:20)
[2023-04-05] MEDS: PANTOPRAZOLE ORAL SUSPENSION 40 MG SUSPDR.PKT GT SCH ×2 (05:14→17:20)
[2023-04-05 07:33] LABS: BASOPHILS # (AUTO) 0.1 K/UL (0.0-0.2); BASOPHILS % (AUTO) 0.7 % (0.0-2.0); EOSINOPHILS # (AUTO) 0.3 K/uL (0.0-0.7); EOSINOPHILS % (AUTO) 3.5 % (0.0-7.0); HEMATOCRIT 30.8 % (36.7-47.1); HEMOGLOBIN 10.1 g/dL (12.5-16.3); LYMPHOCYTES # (AUTO) 2.5 K/uL (0.8-4.8); LYMPHOCYTES % (AUTO) 26.6 % (20.5-51.5); MEAN CORPUSCULAR HEMOGLOBIN 28.8 uug (23.8-33.4); MEAN CORPUSCULAR HGB CONC 33 g/dL (32.5-36.3); MEAN CORPUSCULAR VOLUME 87.8 fL (73.0-96.2); MONOCYTES # (AUTO) 1.1 K/uL (0.1-1.30); MONOCYTES % (AUTO) 11.4 % (0.0-11.0); NEUTROPHILS # (AUTO) 5.3 K/uL (1.8-8.9); NEUTROPHILS % (AUTO) 57.8 % (38.5-71.5); PLATELET COUNT (AUTO) 256 K/uL (152-348); RED BLOOD CELL COUNT(AUTO) 3.51 MIL/uL (4.06-5.63); RED CELL DISTRIBUTION WIDTH 16.7 % (12.1-16.2); WHITE BLOOD COUNT (AUTO) 9.2 K/uL (3.6-10.2)
[2023-04-05 07:43] LABS: DIFFERENTIAL COMMENT 1
[2023-04-05 09:06] LABS: CALCIUM 9.4 mg/dL (8.5-10.1); CREATININE 0.7 mg/dL (0.6-1.3); MAGNESIUM 2.3 mg/dL (1.8-2.4); PHOSPHOROUS 4.1 mg/dL (2.5-4.9); POTASSIUM 3.4 mmol/L (3.5-5.1)
[2023-04-05] MEDS: HYDROGEN PEROXIDE 3% 118 ML BOTTLE TP SCH ×2 (09:26→21:38)
[2023-04-05] MEDS: levETIRAcetam 500 MG/5 ML LIQUID UDC GT SCH ×2 (10:00→21:38)
[2023-04-05] MEDS: METOPROLOL TARTRATE 75 MG GT SCH ×2 (10:00→21:38)
[2023-04-05] MEDS: ACIDOPHILUS/BULGARICUS CHEW TAB GT SCH ×2 (10:00→21:38)
[2023-04-05] MEDS: REMEDY ESSENTIAL ZINC PASTE 113 GM TP SCH ×4 (10:00→21:38)
[2023-04-05] MEDS: JEVITY 1.2 1000 ML LIQUID GT PRN (14:56)
[2023-04-05] MEDS: ASCORBIC ACID 500 MG TABLET GT SCH (21:38)
[2023-04-06] VITALS (10 sets, daily range): TEMP 97.6; O2SAT 96–99
[2023-04-06] MEDS: IPRATROPIUM BROMIDE 0.5 MG/2.5 ML NEBU NEB SCH ×4 (01:25→19:30)
[2023-04-06] MEDS: ALBUTEROL SULFATE 2.5 MG/3 ML NEBU NEB SCH ×4 (01:25→19:30)
[2023-04-06] MEDS: PANTOPRAZOLE ORAL SUSPENSION 40 MG SUSPDR.PKT GT SCH ×2 (05:29→18:25)
[2023-04-06] MEDS: HYDROGEN PEROXIDE 3% 118 ML BOTTLE TP SCH ×2 (07:30→19:30)
[2023-04-06] MEDS: ACIDOPHILUS/BULGARICUS CHEW TAB GT SCH ×2 (09:58→21:55)
[2023-04-06] MEDS: levETIRAcetam 500 MG/5 ML LIQUID UDC GT SCH ×2 (09:58→21:56)
[2023-04-06] MEDS: METOPROLOL TARTRATE 75 MG GT SCH ×2 (09:59→21:56)
[2023-04-06] MEDS: REMEDY ESSENTIAL ZINC PASTE 113 GM TP SCH ×4 (09:59→21:57)
[2023-04-06] MEDS: ASCORBIC ACID 500 MG TABLET GT SCH (21:56)
[2023-04-07] VITALS (10 sets, daily range): TEMP 97.7–99.7; O2SAT 96–99
[2023-04-07] MEDS: ALBUTEROL SULFATE 2.5 MG/3 ML NEBU NEB SCH ×4 (01:37→19:16)
[2023-04-07] MEDS: IPRATROPIUM BROMIDE 0.5 MG/2.5 ML NEBU NEB SCH ×4 (01:37→19:16)
[2023-04-07] MEDS: JEVITY 1.2 1000 ML LIQUID GT PRN (03:19)
[2023-04-07] MEDS: PANTOPRAZOLE ORAL SUSPENSION 40 MG SUSPDR.PKT GT SCH ×2 (05:21→17:44)
[2023-04-07] MEDS: HYDROGEN PEROXIDE 3% 118 ML BOTTLE TP SCH ×2 (08:51→21:43)
[2023-04-07] MEDS: METOPROLOL TARTRATE 75 MG GT SCH ×2 (09:00→22:00)
[2023-04-07] MEDS: ACIDOPHILUS/BULGARICUS CHEW TAB GT SCH ×2 (09:07→21:59)
[2023-04-07] MEDS: levETIRAcetam 500 MG/5 ML LIQUID UDC GT SCH ×2 (09:07→21:59)
[2023-04-07] MEDS: REMEDY ESSENTIAL ZINC PASTE 113 GM TP SCH ×4 (09:10→21:00)
[2023-04-07] MEDS: ASCORBIC ACID 500 MG TABLET GT SCH (21:00)
[2023-04-08] VITALS (9 sets, daily range): TEMP 97.7–97.9; O2SAT 96–99
[2023-04-08] MEDS: IPRATROPIUM BROMIDE 0.5 MG/2.5 ML NEBU NEB SCH ×4 (00:42→19:10)
[2023-04-08] MEDS: ALBUTEROL SULFATE 2.5 MG/3 ML NEBU NEB SCH ×4 (00:42→19:10)
[2023-04-08] MEDS: JEVITY 1.2 1000 ML LIQUID GT PRN (02:21)
[2023-04-08] MEDS: PANTOPRAZOLE ORAL SUSPENSION 40 MG SUSPDR.PKT GT SCH ×2 (05:37→18:22)
[2023-04-08] MEDS: HYDROGEN PEROXIDE 3% 118 ML BOTTLE TP SCH ×2 (07:30→21:54)
[2023-04-08] MEDS: METOPROLOL TARTRATE 75 MG GT SCH ×2 (09:35→21:41)
[2023-04-08] MEDS: ACIDOPHILUS/BULGARICUS CHEW TAB GT SCH ×2 (09:35→21:40)
[2023-04-08] MEDS: REMEDY ESSENTIAL ZINC PASTE 113 GM TP SCH ×4 (09:35→21:42)
[2023-04-08] MEDS: levETIRAcetam 500 MG/5 ML LIQUID UDC GT SCH ×2 (09:35→21:40)
[2023-04-08] MEDS ORDERED: INFLUENZA VACCINE 2023-2024 0.5 ML DISP.SYRIN IM ONE (13:00)
[2023-04-08] MEDS ORDERED: POTASSIUM CHLORIDE 10 MEQ TAB.PRT.SR XX ONE (18:00)
[2023-04-08] MEDS: ASCORBIC ACID 500 MG TABLET GT SCH (21:41)
[2023-04-09] VITALS (11 sets, daily range): BP systolic 97; BP diastolic 53; TEMP 97.4–97.8; O2SAT 96–99
[2023-04-09] MEDS: IPRATROPIUM BROMIDE 0.5 MG/2.5 ML NEBU NEB SCH ×4 (01:03→19:06)
[2023-04-09] MEDS: ALBUTEROL SULFATE 2.5 MG/3 ML NEBU NEB SCH ×4 (01:03→19:06)
[2023-04-09] MEDS: PANTOPRAZOLE ORAL SUSPENSION 40 MG SUSPDR.PKT GT SCH ×2 (06:03→17:37)
[2023-04-09] MEDS: HYDROGEN PEROXIDE 3% 118 ML BOTTLE TP SCH ×2 (07:15→20:55)
[2023-04-09] MEDS: METOPROLOL TARTRATE 75 MG GT SCH ×2 (09:00→21:14)
[2023-04-09] MEDS: levETIRAcetam 500 MG/5 ML LIQUID UDC GT SCH ×2 (09:11→21:12)
[2023-04-09] MEDS: REMEDY ESSENTIAL ZINC PASTE 113 GM TP SCH ×4 (09:11→21:14)
[2023-04-09] MEDS: ACIDOPHILUS/BULGARICUS CHEW TAB GT SCH ×2 (09:11→21:12)
[2023-04-09] MEDS: ASCORBIC ACID 500 MG TABLET GT SCH (21:14)
[2023-04-10] VITALS (11 sets, daily range): TEMP 97.9; O2SAT 99
[2023-04-10] MEDS: ALBUTEROL SULFATE 2.5 MG/3 ML NEBU NEB SCH ×4 (01:05→19:40)
[2023-04-10] MEDS: IPRATROPIUM BROMIDE 0.5 MG/2.5 ML NEBU NEB SCH ×4 (01:05→19:40)
[2023-04-10] MEDS: PANTOPRAZOLE ORAL SUSPENSION 40 MG SUSPDR.PKT GT SCH ×2 (05:38→18:45)
[2023-04-10] MEDS: METOPROLOL TARTRATE 75 MG GT SCH ×2 (09:00→21:57)
[2023-04-10] MEDS: ACIDOPHILUS/BULGARICUS CHEW TAB GT SCH ×2 (09:59→21:57)
[2023-04-10] MEDS: REMEDY ESSENTIAL ZINC PASTE 113 GM TP SCH ×4 (09:59→21:58)
[2023-04-10] MEDS: HYDROGEN PEROXIDE 3% 118 ML BOTTLE TP SCH ×2 (09:59→21:20)
[2023-04-10] MEDS: levETIRAcetam 500 MG/5 ML LIQUID UDC GT SCH ×2 (09:59→21:57)
[2023-04-10] MEDS: ASCORBIC ACID 500 MG TABLET GT SCH (21:57)
[2023-04-11] VITALS (10 sets, daily range): TEMP 97.8–99.4; O2SAT 95–99
[2023-04-11] MEDS: ALBUTEROL SULFATE 2.5 MG/3 ML NEBU NEB SCH ×4 (01:41→19:17)
[2023-04-11] MEDS: IPRATROPIUM BROMIDE 0.5 MG/2.5 ML NEBU NEB SCH ×4 (01:41→19:17)
[2023-04-11] MEDS: PANTOPRAZOLE ORAL SUSPENSION 40 MG SUSPDR.PKT GT SCH ×2 (06:19→17:16)
[2023-04-11] MEDS: HYDROGEN PEROXIDE 3% 118 ML BOTTLE TP SCH ×2 (07:12→19:18)
[2023-04-11] MEDS: METOPROLOL TARTRATE 75 MG GT SCH ×2 (09:00→21:00)
[2023-04-11] MEDS: ACIDOPHILUS/BULGARICUS CHEW TAB GT SCH ×2 (09:07→21:05)
[2023-04-11] MEDS: REMEDY ESSENTIAL ZINC PASTE 113 GM TP SCH ×4 (09:08→21:07)
[2023-04-11] MEDS: levETIRAcetam 500 MG/5 ML LIQUID UDC GT SCH ×2 (09:08→21:06)
[2023-04-11] MEDS: ASCORBIC ACID 500 MG TABLET GT SCH (21:06)
[2023-04-12] VITALS (10 sets, daily range): TEMP 98.3–99.3; O2SAT 97–99
[2023-04-12] MEDS: ALBUTEROL SULFATE 2.5 MG/3 ML NEBU NEB SCH ×4 (01:08→19:30)
[2023-04-12] MEDS: IPRATROPIUM BROMIDE 0.5 MG/2.5 ML NEBU NEB SCH ×4 (01:08→19:30)
[2023-04-12] MEDS: JEVITY 1.2 1000 ML LIQUID GT PRN (02:10)
[2023-04-12] MEDS: PANTOPRAZOLE ORAL SUSPENSION 40 MG SUSPDR.PKT GT SCH ×2 (05:08→18:17)
[2023-04-12] MEDS: HYDROGEN PEROXIDE 3% 118 ML BOTTLE TP SCH ×2 (09:00→21:08)
[2023-04-12] MEDS: REMEDY ESSENTIAL ZINC PASTE 113 GM TP SCH ×4 (09:00→21:19)
[2023-04-12] MEDS: levETIRAcetam 500 MG/5 ML LIQUID UDC GT SCH ×2 (09:00→21:19)
[2023-04-12] MEDS: ACIDOPHILUS/BULGARICUS CHEW TAB GT SCH ×2 (09:00→21:19)
[2023-04-12] MEDS: METOPROLOL TARTRATE 75 MG GT SCH ×2 (09:00→21:00)
[2023-04-12] MEDS: ASCORBIC ACID 500 MG TABLET GT SCH (21:19)
[2023-04-12] MEDS ORDERED: METOPROLOL TARTRATE 50 MG TABLET ONE (21:35)
[2023-04-12] MEDS ORDERED: METOPROLOL TARTRATE 25 MG TABLET ONE (21:35)
[2023-04-12] MEDS: METOPROLOL TARTRATE 50 MG TABLET GT SCH (21:56)
[2023-04-13] VITALS (11 sets, daily range): TEMP 98.4–98.9; O2SAT 97–99
[2023-04-13] MEDS: ALBUTEROL SULFATE 2.5 MG/3 ML NEBU NEB SCH ×4 (01:50→19:26)
[2023-04-13] MEDS: IPRATROPIUM BROMIDE 0.5 MG/2.5 ML NEBU NEB SCH ×4 (01:50→19:26)
[2023-04-13] MEDS: PANTOPRAZOLE ORAL SUSPENSION 40 MG SUSPDR.PKT GT SCH ×2 (05:23→18:22)
[2023-04-13] MEDS: HYDROGEN PEROXIDE 3% 118 ML BOTTLE TP SCH ×2 (08:23→22:04)
[2023-04-13] MEDS: ACIDOPHILUS/BULGARICUS CHEW TAB GT SCH ×2 (09:00→21:55)
[2023-04-13] MEDS: REMEDY ESSENTIAL ZINC PASTE 113 GM TP SCH ×4 (09:00→21:56)
[2023-04-13] MEDS: levETIRAcetam 500 MG/5 ML LIQUID UDC GT SCH ×2 (09:00→21:55)
[2023-04-13] MEDS: METOPROLOL TARTRATE 50 MG TABLET GT SCH ×2 (09:00→21:00)
[2023-04-13] MEDS: JEVITY 1.2 1000 ML LIQUID GT PRN (18:26)
[2023-04-13] MEDS: METOPROLOL TARTRATE 75 MG GT SCH (21:00)
[2023-04-13] MEDS: ASCORBIC ACID 500 MG TABLET GT SCH (21:55)
[2023-04-14] VITALS (10 sets, daily range): TEMP 97.6–97.7; O2SAT 97–99
[2023-04-14] MEDS: IPRATROPIUM BROMIDE 0.5 MG/2.5 ML NEBU NEB SCH ×4 (00:43→19:04)
[2023-04-14] MEDS: ALBUTEROL SULFATE 2.5 MG/3 ML NEBU NEB SCH ×4 (00:43→19:04)
[2023-04-14] MEDS: PANTOPRAZOLE ORAL SUSPENSION 40 MG SUSPDR.PKT GT SCH ×2 (05:02→18:44)
[2023-04-14] MEDS: METOPROLOL TARTRATE 50 MG TABLET GT SCH ×3 (09:00→21:08)
[2023-04-14] MEDS: HYDROGEN PEROXIDE 3% 118 ML BOTTLE TP SCH ×2 (09:07→21:08)
[2023-04-14] MEDS: levETIRAcetam 500 MG/5 ML LIQUID UDC GT SCH ×2 (09:50→20:43)
[2023-04-14] MEDS: ACIDOPHILUS/BULGARICUS CHEW TAB GT SCH ×2 (09:50→20:43)
[2023-04-14] MEDS: REMEDY ESSENTIAL ZINC PASTE 113 GM TP SCH ×4 (09:56→20:44)
[2023-04-14] MEDS: ACETAMINOPHEN 650 MG/20 ML UDC- SA PATIENTS-PAIN ONLY GT PRN (09:57)
[2023-04-14] MEDS: JEVITY 1.2 1000 ML LIQUID GT PRN (14:41)
[2023-04-14] MEDS: HYDROCODONE/APAP 10-325 MG TABLET GT PRN (17:01)
[2023-04-14] MEDS: ASCORBIC ACID 500 MG TABLET GT SCH (20:44)
[2023-04-14] MEDS ORDERED: METOPROLOL TARTRATE 50 MG TABLET ONE (21:06)
[2023-04-14] MEDS ORDERED: METOPROLOL TARTRATE 25 MG TABLET ONE (21:06)
[2023-04-15] VITALS (11 sets, daily range): TEMP 98.3–98.9; O2SAT 96–99
[2023-04-15] MEDS: IPRATROPIUM BROMIDE 0.5 MG/2.5 ML NEBU NEB SCH ×4 (01:04→19:08)
[2023-04-15] MEDS: ALBUTEROL SULFATE 2.5 MG/3 ML NEBU NEB SCH ×4 (01:04→19:08)
[2023-04-15] MEDS: PANTOPRAZOLE ORAL SUSPENSION 40 MG SUSPDR.PKT GT SCH ×2 (05:57→18:23)
[2023-04-15 07:05] LABS: BASOPHILS # (AUTO) 0.1 K/UL (0.0-0.2); BASOPHILS % (AUTO) 0.9 % (0.0-2.0); EOSINOPHILS # (AUTO) 0.4 K/uL (0.0-0.7); EOSINOPHILS % (AUTO) 4.6 % (0.0-7.0); HEMATOCRIT 37.9 % (36.7-47.1); HEMOGLOBIN 12.6 g/dL (12.5-16.3); LYMPHOCYTES # (AUTO) 2.1 K/uL (0.8-4.8); MEAN CORPUSCULAR HEMOGLOBIN 29.3 uug (23.8-33.4); MEAN CORPUSCULAR HGB CONC 33 g/dL (32.5-36.3); MEAN CORPUSCULAR VOLUME 88.1 fL (73.0-96.2); MONOCYTES # (AUTO) 0.9 K/uL (0.1-1.30); MONOCYTES % (AUTO) 9.5 % (0.0-11.0); NEUTROPHILS # (AUTO) 5.9 K/uL (1.8-8.9); PLATELET COUNT (AUTO) 524 K/uL (152-348); RED CELL DISTRIBUTION WIDTH 15.2 % (12.1-16.2); WHITE BLOOD COUNT (AUTO) 9.3 K/uL (3.6-10.2)
[2023-04-15 07:10] LABS: CALCIUM 9.3 mg/dL (8.5-10.1); CREATININE 0.8 mg/dL (0.6-1.3); MAGNESIUM 2.4 mg/dL (1.8-2.4); PHOSPHOROUS 4.4 mg/dL (2.5-4.9); POTASSIUM 4.5 mmol/L (3.5-5.1)
[2023-04-15 07:17] LABS: DIFFERENTIAL COMMENT 1
[2023-04-15] MEDS: HYDROGEN PEROXIDE 3% 118 ML BOTTLE TP SCH ×2 (09:00→21:08)
[2023-04-15] MEDS: ACIDOPHILUS/BULGARICUS CHEW TAB GT SCH ×2 (09:57→21:46)
[2023-04-15] MEDS: levETIRAcetam 500 MG/5 ML LIQUID UDC GT SCH ×2 (09:57→21:46)
[2023-04-15] MEDS: REMEDY ESSENTIAL ZINC PASTE 113 GM TP SCH ×4 (09:58→21:54)
[2023-04-15] MEDS: METOPROLOL TARTRATE 50 MG TABLET GT SCH ×2 (09:58→21:00)
[2023-04-15] MEDS: ASCORBIC ACID 500 MG TABLET GT SCH (21:54)
[2023-04-16] VITALS (10 sets, daily range): TEMP 97.2–98; O2SAT 97–99
[2023-04-16] MEDS: IPRATROPIUM BROMIDE 0.5 MG/2.5 ML NEBU NEB SCH ×4 (01:05→20:00)
[2023-04-16] MEDS: ALBUTEROL SULFATE 2.5 MG/3 ML NEBU NEB SCH ×4 (01:05→20:00)
[2023-04-16] MEDS: PANTOPRAZOLE ORAL SUSPENSION 40 MG SUSPDR.PKT GT SCH ×2 (05:53→17:00)
[2023-04-16] MEDS: HYDROGEN PEROXIDE 3% 118 ML BOTTLE TP SCH ×2 (09:00→21:00)
[2023-04-16] MEDS: ACIDOPHILUS/BULGARICUS CHEW TAB GT SCH ×2 (09:23→21:09)
[2023-04-16] MEDS: levETIRAcetam 500 MG/5 ML LIQUID UDC GT SCH ×2 (09:25→21:09)
[2023-04-16] MEDS: REMEDY ESSENTIAL ZINC PASTE 113 GM TP SCH ×4 (09:25→21:10)
[2023-04-16] MEDS: METOPROLOL TARTRATE 50 MG TABLET GT SCH (10:19)
[2023-04-16] MEDS: JEVITY 1.2 1000 ML LIQUID GT PRN (10:40)
[2023-04-16] MEDS: ASCORBIC ACID 500 MG TABLET GT SCH (21:09)
[2023-04-17] VITALS (10 sets, daily range): TEMP 97.2–98.6; O2SAT 96–99
[2023-04-17] MEDS: ALBUTEROL SULFATE 2.5 MG/3 ML NEBU NEB SCH ×4 (01:42→19:50)
[2023-04-17] MEDS: IPRATROPIUM BROMIDE 0.5 MG/2.5 ML NEBU NEB SCH ×4 (01:42→19:50)
[2023-04-17] MEDS: PANTOPRAZOLE ORAL SUSPENSION 40 MG SUSPDR.PKT GT SCH ×2 (05:08→18:03)
[2023-04-17] MEDS: HYDROGEN PEROXIDE 3% 118 ML BOTTLE TP SCH ×2 (08:52→20:56)
[2023-04-17] MEDS: METOPROLOL TARTRATE 75 MG GT SCH ×2 (09:00→21:00)
[2023-04-17] MEDS: ACIDOPHILUS/BULGARICUS CHEW TAB GT SCH ×2 (09:35→20:47)
[2023-04-17] MEDS: levETIRAcetam 500 MG/5 ML LIQUID UDC GT SCH ×2 (09:36→20:47)
[2023-04-17] MEDS: REMEDY ESSENTIAL ZINC PASTE 113 GM TP SCH ×4 (09:37→21:00)
[2023-04-17] MEDS: JEVITY 1.2 1000 ML LIQUID GT PRN (10:57)
[2023-04-17] MEDS: ASCORBIC ACID 500 MG TABLET GT SCH (20:47)
[2023-04-17] MEDS: ENOXAPARIN SODIUM 40 MG/0.4 ML DISP.SYRIN SQ SCH (21:00)
[2023-04-18] VITALS (9 sets, daily range): TEMP 97.8–98.5; O2SAT 97–99
[2023-04-18] MEDS: ALBUTEROL SULFATE 2.5 MG/3 ML NEBU NEB SCH ×4 (01:10→20:20)
[2023-04-18] MEDS: IPRATROPIUM BROMIDE 0.5 MG/2.5 ML NEBU NEB SCH ×4 (01:10→20:20)
[2023-04-18] MEDS: PANTOPRAZOLE ORAL SUSPENSION 40 MG SUSPDR.PKT GT SCH ×2 (05:55→17:11)
[2023-04-18] MEDS: JEVITY 1.2 1000 ML LIQUID GT PRN (06:58)
[2023-04-18] MEDS: HYDROGEN PEROXIDE 3% 118 ML BOTTLE TP SCH ×2 (07:28→21:19)
[2023-04-18] MEDS: METOPROLOL TARTRATE 75 MG GT SCH ×2 (09:00→21:56)
[2023-04-18] MEDS: ACIDOPHILUS/BULGARICUS CHEW TAB GT SCH ×2 (09:55→21:56)
[2023-04-18] MEDS: levETIRAcetam 500 MG/5 ML LIQUID UDC GT SCH ×2 (09:55→21:56)
[2023-04-18] MEDS: REMEDY ESSENTIAL ZINC PASTE 113 GM TP SCH ×4 (09:56→21:57)
[2023-04-18] MEDS: ASCORBIC ACID 500 MG TABLET GT SCH (21:56)
[2023-04-18] MEDS: ENOXAPARIN SODIUM 40 MG/0.4 ML DISP.SYRIN SQ SCH (21:57)
[2023-04-19] VITALS (12 sets, daily range): TEMP 97.3–98.5; O2SAT 96–99
[2023-04-19] MEDS: IPRATROPIUM BROMIDE 0.5 MG/2.5 ML NEBU NEB SCH ×4 (01:03→19:22)
[2023-04-19] MEDS: ALBUTEROL SULFATE 2.5 MG/3 ML NEBU NEB SCH ×4 (01:03→19:22)
[2023-04-19] MEDS: JEVITY 1.2 1000 ML LIQUID GT PRN (02:06)
[2023-04-19] MEDS: PANTOPRAZOLE ORAL SUSPENSION 40 MG SUSPDR.PKT GT SCH ×2 (05:14→17:30)
[2023-04-19] MEDS: HYDROGEN PEROXIDE 3% 118 ML BOTTLE TP SCH ×2 (08:20→21:54)
[2023-04-19] MEDS: levETIRAcetam 500 MG/5 ML LIQUID UDC GT SCH ×2 (09:32→21:00)
[2023-04-19] MEDS: REMEDY ESSENTIAL ZINC PASTE 113 GM TP SCH ×4 (09:32→21:00)
[2023-04-19] MEDS: ACIDOPHILUS/BULGARICUS CHEW TAB GT SCH ×2 (09:33→21:00)
[2023-04-19] MEDS: METOPROLOL TARTRATE 75 MG GT SCH ×2 (09:36→21:00)
[2023-04-19] MEDS: ASCORBIC ACID 500 MG TABLET GT SCH (21:00)
[2023-04-19] MEDS: ENOXAPARIN SODIUM 40 MG/0.4 ML DISP.SYRIN SQ SCH (21:00)
[2023-04-20] VITALS (10 sets, daily range): TEMP 98.2; O2SAT 99
[2023-04-20] MEDS: JEVITY 1.2 1000 ML LIQUID GT PRN ×2 (00:30→18:30)
[2023-04-20] MEDS: IPRATROPIUM BROMIDE 0.5 MG/2.5 ML NEBU NEB SCH ×4 (01:33→19:05)
[2023-04-20] MEDS: ALBUTEROL SULFATE 2.5 MG/3 ML NEBU NEB SCH ×4 (01:33→19:05)
[2023-04-20] MEDS: PANTOPRAZOLE ORAL SUSPENSION 40 MG SUSPDR.PKT GT SCH ×2 (05:54→17:51)
[2023-04-20] MEDS: levETIRAcetam 500 MG/5 ML LIQUID UDC GT SCH ×2 (08:22→21:57)
[2023-04-20] MEDS: ACIDOPHILUS/BULGARICUS CHEW TAB GT SCH ×2 (08:22→21:57)
[2023-04-20] MEDS: REMEDY ESSENTIAL ZINC PASTE 113 GM TP SCH ×4 (08:24→21:35)
[2023-04-20] MEDS: METOPROLOL TARTRATE 75 MG GT SCH ×2 (08:24→21:57)
[2023-04-20] MEDS: HYDROGEN PEROXIDE 3% 118 ML BOTTLE TP SCH ×2 (09:00→22:31)
[2023-04-20] MEDS: ASCORBIC ACID 500 MG TABLET GT SCH (21:00)
[2023-04-20] MEDS: ENOXAPARIN SODIUM 40 MG/0.4 ML DISP.SYRIN SQ SCH (21:35)
[2023-04-21] VITALS (10 sets, daily range): TEMP 98.1–98.2; O2SAT 98–99
[2023-04-21] MEDS: ALBUTEROL SULFATE 2.5 MG/3 ML NEBU NEB SCH ×4 (01:26→21:16)
[2023-04-21] MEDS: IPRATROPIUM BROMIDE 0.5 MG/2.5 ML NEBU NEB SCH ×4 (01:27→21:16)
[2023-04-21] MEDS: PANTOPRAZOLE ORAL SUSPENSION 40 MG SUSPDR.PKT GT SCH ×2 (06:13→18:05)
[2023-04-21] MEDS: ACIDOPHILUS/BULGARICUS CHEW TAB GT SCH ×2 (08:59→21:00)
[2023-04-21] MEDS: levETIRAcetam 500 MG/5 ML LIQUID UDC GT SCH ×2 (09:00→21:00)
[2023-04-21] MEDS: HYDROGEN PEROXIDE 3% 118 ML BOTTLE TP SCH (09:00)
[2023-04-21] MEDS: REMEDY ESSENTIAL ZINC PASTE 113 GM TP SCH ×4 (09:01→21:00)
[2023-04-21] MEDS: METOPROLOL TARTRATE 75 MG GT SCH ×2 (09:01→21:00)
[2023-04-21] MEDS: JEVITY 1.2 1000 ML LIQUID GT PRN (15:37)
[2023-04-21] MEDS: ENOXAPARIN SODIUM 40 MG/0.4 ML DISP.SYRIN SQ SCH (21:00)
[2023-04-21] MEDS: ASCORBIC ACID 500 MG TABLET GT SCH (21:00)
[2023-04-22] VITALS (12 sets, daily range): TEMP 97.7–98.8; O2SAT 99
[2023-04-22] MEDS: IPRATROPIUM BROMIDE 0.5 MG/2.5 ML NEBU NEB SCH ×4 (04:19→19:29)
[2023-04-22] MEDS: HYDROGEN PEROXIDE 3% 118 ML BOTTLE TP SCH ×3 (04:19→21:10)
[2023-04-22] MEDS: ALBUTEROL SULFATE 2.5 MG/3 ML NEBU NEB SCH ×4 (04:19→19:29)
[2023-04-22] MEDS: PANTOPRAZOLE ORAL SUSPENSION 40 MG SUSPDR.PKT GT SCH ×2 (05:30→17:50)
[2023-04-22] MEDS: ACIDOPHILUS/BULGARICUS CHEW TAB GT SCH ×2 (09:14→21:00)
[2023-04-22] MEDS: levETIRAcetam 500 MG/5 ML LIQUID UDC GT SCH ×2 (09:14→21:00)
[2023-04-22] MEDS: METOPROLOL TARTRATE 75 MG GT SCH ×2 (09:16→21:00)
[2023-04-22] MEDS: REMEDY ESSENTIAL ZINC PASTE 113 GM TP SCH ×4 (09:16→21:00)
[2023-04-22] MEDS: JEVITY 1.2 1000 ML LIQUID GT PRN (10:43)
[2023-04-22] MEDS: ENOXAPARIN SODIUM 40 MG/0.4 ML DISP.SYRIN SQ SCH (21:00)
[2023-04-22] MEDS: ASCORBIC ACID 500 MG TABLET GT SCH (21:00)
[2023-04-23] VITALS (10 sets, daily range): TEMP 98; O2SAT 99
[2023-04-23] MEDS: ALBUTEROL SULFATE 2.5 MG/3 ML NEBU NEB SCH ×4 (01:36→19:31)
[2023-04-23] MEDS: IPRATROPIUM BROMIDE 0.5 MG/2.5 ML NEBU NEB SCH ×4 (01:36→19:31)
[2023-04-23] MEDS: PANTOPRAZOLE ORAL SUSPENSION 40 MG SUSPDR.PKT GT SCH ×2 (06:12→17:33)
[2023-04-23] MEDS: HYDROGEN PEROXIDE 3% 118 ML BOTTLE TP SCH ×2 (09:00→19:31)
[2023-04-23] MEDS: METOPROLOL TARTRATE 75 MG GT SCH ×2 (09:51→21:23)
[2023-04-23] MEDS: ACIDOPHILUS/BULGARICUS CHEW TAB GT SCH ×2 (09:52→21:22)
[2023-04-23] MEDS: REMEDY ESSENTIAL ZINC PASTE 113 GM TP SCH ×4 (09:54→21:26)
[2023-04-23] MEDS: levETIRAcetam 500 MG/5 ML LIQUID UDC GT SCH ×2 (09:54→21:22)
[2023-04-23] MEDS: JEVITY 1.2 1000 ML LIQUID GT PRN (18:57)
[2023-04-23] MEDS: ASCORBIC ACID 500 MG TABLET GT SCH (21:25)
[2023-04-23] MEDS: ENOXAPARIN SODIUM 40 MG/0.4 ML DISP.SYRIN SQ SCH (21:27)
[2023-04-24] VITALS (10 sets, daily range): TEMP 97.6–98.4; O2SAT 98–99
[2023-04-24] MEDS: IPRATROPIUM BROMIDE 0.5 MG/2.5 ML NEBU NEB SCH ×4 (02:02→19:06)
[2023-04-24] MEDS: ALBUTEROL SULFATE 2.5 MG/3 ML NEBU NEB SCH ×4 (02:02→19:06)
[2023-04-24] MEDS: PANTOPRAZOLE ORAL SUSPENSION 40 MG SUSPDR.PKT GT SCH ×2 (06:00→17:28)
[2023-04-24] MEDS: REMEDY ESSENTIAL ZINC PASTE 113 GM TP SCH ×4 (09:32→20:34)
[2023-04-24] MEDS: levETIRAcetam 500 MG/5 ML LIQUID UDC GT SCH ×2 (09:33→20:33)
[2023-04-24] MEDS: METOPROLOL TARTRATE 75 MG GT SCH ×2 (09:33→20:34)
[2023-04-24] MEDS: ACIDOPHILUS/BULGARICUS CHEW TAB GT SCH ×2 (09:33→20:33)
[2023-04-24] MEDS: HYDROGEN PEROXIDE 3% 118 ML BOTTLE TP SCH ×2 (09:36→21:27)
[2023-04-24] MEDS: ASCORBIC ACID 500 MG TABLET GT SCH (20:34)
[2023-04-24] MEDS: ENOXAPARIN SODIUM 40 MG/0.4 ML DISP.SYRIN SQ SCH (21:00)
[2023-04-25] VITALS (10 sets, daily range): TEMP 98.2–98.6; O2SAT 99
[2023-04-25] MEDS: IPRATROPIUM BROMIDE 0.5 MG/2.5 ML NEBU NEB SCH ×4 (01:03→19:29)
[2023-04-25] MEDS: ALBUTEROL SULFATE 2.5 MG/3 ML NEBU NEB SCH ×4 (01:03→19:29)
[2023-04-25] MEDS: HYDROCORTISONE 1% CREAM 30 GM TUBE TP SCH ×2 (03:30→09:12)
[2023-04-25] MEDS: PANTOPRAZOLE ORAL SUSPENSION 40 MG SUSPDR.PKT GT SCH ×2 (06:18→17:40)
[2023-04-25] MEDS: HYDROGEN PEROXIDE 3% 118 ML BOTTLE TP SCH ×2 (07:11→19:29)
[2023-04-25] MEDS: METOPROLOL TARTRATE 75 MG GT SCH ×2 (09:00→20:48)
[2023-04-25] MEDS: REMEDY ESSENTIAL ZINC PASTE 113 GM TP SCH ×4 (09:12→20:48)
[2023-04-25] MEDS: ACIDOPHILUS/BULGARICUS CHEW TAB GT SCH ×2 (09:17→20:47)
[2023-04-25] MEDS: levETIRAcetam 500 MG/5 ML LIQUID UDC GT SCH ×2 (09:17→20:50)
[2023-04-25] MEDS: ACETAMINOPHEN 650 MG/20 ML UDC- SA PATIENTS-PAIN ONLY GT PRN (12:31)
[2023-04-25] MEDS: JEVITY 1.2 1000 ML LIQUID GT PRN (15:42)
[2023-04-25] MEDS: KETOCONAZOLE 2% CREAM 30 GM TUBE TP SCH (20:48)
[2023-04-25] MEDS: ASCORBIC ACID 500 MG TABLET GT SCH (20:48)
[2023-04-25] MEDS: ENOXAPARIN SODIUM 40 MG/0.4 ML DISP.SYRIN SQ SCH (21:00)
[2023-04-26] VITALS (10 sets, daily range): TEMP 97.6–98.6; O2SAT 96–99
[2023-04-26] MEDS: ALBUTEROL SULFATE 2.5 MG/3 ML NEBU NEB SCH ×4 (00:42→19:12)
[2023-04-26] MEDS: IPRATROPIUM BROMIDE 0.5 MG/2.5 ML NEBU NEB SCH ×4 (00:42→19:12)
[2023-04-26] MEDS: PANTOPRAZOLE ORAL SUSPENSION 40 MG SUSPDR.PKT GT SCH ×2 (06:17→17:45)
[2023-04-26] MEDS: HYDROGEN PEROXIDE 3% 118 ML BOTTLE TP SCH ×2 (07:16→19:12)
[2023-04-26] MEDS: ACIDOPHILUS/BULGARICUS CHEW TAB GT SCH ×2 (09:52→20:40)
[2023-04-26] MEDS: levETIRAcetam 500 MG/5 ML LIQUID UDC GT SCH ×2 (09:53→20:41)
[2023-04-26] MEDS: METOPROLOL TARTRATE 75 MG GT SCH ×2 (09:55→20:42)
[2023-04-26] MEDS: KETOCONAZOLE 2% CREAM 30 GM TUBE TP SCH ×2 (09:56→20:42)
[2023-04-26] MEDS: REMEDY ESSENTIAL ZINC PASTE 113 GM TP SCH ×4 (09:56→20:42)
[2023-04-26] MEDS: JEVITY 1.2 1000 ML LIQUID GT PRN (09:57)
[2023-04-26] MEDS: ASCORBIC ACID 500 MG TABLET GT SCH (20:42)
[2023-04-26] MEDS: ENOXAPARIN SODIUM 40 MG/0.4 ML DISP.SYRIN SQ SCH (21:00)
[2023-04-27] VITALS (11 sets, daily range): TEMP 97.4–98.8; O2SAT 96–99
[2023-04-27] MEDS: ALBUTEROL SULFATE 2.5 MG/3 ML NEBU NEB SCH ×4 (01:13→21:17)
[2023-04-27] MEDS: IPRATROPIUM BROMIDE 0.5 MG/2.5 ML NEBU NEB SCH ×4 (01:13→21:16)
[2023-04-27] MEDS: PANTOPRAZOLE ORAL SUSPENSION 40 MG SUSPDR.PKT GT SCH ×2 (06:46→18:48)
[2023-04-27] MEDS: HYDROGEN PEROXIDE 3% 118 ML BOTTLE TP SCH ×2 (09:11→21:17)
[2023-04-27] MEDS: ACIDOPHILUS/BULGARICUS CHEW TAB GT SCH ×2 (09:48→21:40)
[2023-04-27] MEDS: levETIRAcetam 500 MG/5 ML LIQUID UDC GT SCH ×2 (09:48→21:40)
[2023-04-27] MEDS: METOPROLOL TARTRATE 75 MG GT SCH ×2 (09:49→21:41)
[2023-04-27] MEDS: KETOCONAZOLE 2% CREAM 30 GM TUBE TP SCH ×2 (09:50→21:42)
[2023-04-27] MEDS: REMEDY ESSENTIAL ZINC PASTE 113 GM TP SCH ×4 (09:50→21:42)
[2023-04-27] MEDS: JEVITY 1.2 1000 ML LIQUID GT PRN (14:53)
[2023-04-27] MEDS: ASCORBIC ACID 500 MG TABLET GT SCH (21:41)
[2023-04-27] MEDS: ENOXAPARIN SODIUM 40 MG/0.4 ML DISP.SYRIN SQ SCH (21:41)
[2023-04-28] VITALS (11 sets, daily range): TEMP 97.8–98.4; O2SAT 96–99
[2023-04-28] MEDS: ALBUTEROL SULFATE 2.5 MG/3 ML NEBU NEB SCH ×4 (02:19→19:17)
[2023-04-28] MEDS: IPRATROPIUM BROMIDE 0.5 MG/2.5 ML NEBU NEB SCH ×4 (02:19→19:17)
[2023-04-28] MEDS: PANTOPRAZOLE ORAL SUSPENSION 40 MG SUSPDR.PKT GT SCH ×2 (05:46→18:18)
[2023-04-28] MEDS: HYDROGEN PEROXIDE 3% 118 ML BOTTLE TP SCH ×2 (09:00→19:17)
[2023-04-28] MEDS: ACIDOPHILUS/BULGARICUS CHEW TAB GT SCH ×2 (09:41→21:35)
[2023-04-28] MEDS: levETIRAcetam 500 MG/5 ML LIQUID UDC GT SCH ×2 (09:42→21:35)
[2023-04-28] MEDS: METOPROLOL TARTRATE 75 MG GT SCH ×2 (09:48→21:36)
[2023-04-28] MEDS: KETOCONAZOLE 2% CREAM 30 GM TUBE TP SCH ×2 (09:48→21:37)
[2023-04-28] MEDS: JEVITY 1.2 1000 ML LIQUID GT PRN (09:49)
[2023-04-28] MEDS: REMEDY ESSENTIAL ZINC PASTE 113 GM TP SCH ×4 (09:49→21:37)
[2023-04-28] MEDS: ASCORBIC ACID 500 MG TABLET GT SCH (21:36)
[2023-04-28] MEDS: ENOXAPARIN SODIUM 40 MG/0.4 ML DISP.SYRIN SQ SCH (21:37)
[2023-04-29] VITALS (9 sets, daily range): TEMP 98–99; O2SAT 95–99
[2023-04-29] MEDS: IPRATROPIUM BROMIDE 0.5 MG/2.5 ML NEBU NEB SCH ×4 (01:19→19:03)
[2023-04-29] MEDS: ALBUTEROL SULFATE 2.5 MG/3 ML NEBU NEB SCH ×4 (01:19→19:03)
[2023-04-29] MEDS: PANTOPRAZOLE ORAL SUSPENSION 40 MG SUSPDR.PKT GT SCH ×2 (05:43→18:25)
[2023-04-29] MEDS: KETOCONAZOLE 2% SHAMPOO 120 ML BOTTLE TP SCH (09:00)
[2023-04-29] MEDS: ACIDOPHILUS/BULGARICUS CHEW TAB GT SCH ×2 (09:00→20:18)
[2023-04-29] MEDS: levETIRAcetam 500 MG/5 ML LIQUID UDC GT SCH ×2 (09:00→20:19)
[2023-04-29] MEDS: KETOCONAZOLE 2% CREAM 30 GM TUBE TP SCH ×2 (09:00→20:20)
[2023-04-29] MEDS: METOPROLOL TARTRATE 75 MG GT SCH ×2 (09:00→20:20)
[2023-04-29] MEDS: REMEDY ESSENTIAL ZINC PASTE 113 GM TP SCH ×4 (09:00→20:20)
[2023-04-29] MEDS: HYDROGEN PEROXIDE 3% 118 ML BOTTLE TP SCH ×2 (09:50→21:59)
[2023-04-29] MEDS: ASCORBIC ACID 500 MG TABLET GT SCH (20:20)
[2023-04-29] MEDS: ENOXAPARIN SODIUM 40 MG/0.4 ML DISP.SYRIN SQ SCH (21:00)
[2023-04-30] VITALS (12 sets, daily range): BP systolic 107; BP diastolic 76; TEMP 96.9–98.7; O2SAT 98–99
[2023-04-30] MEDS: IPRATROPIUM BROMIDE 0.5 MG/2.5 ML NEBU NEB SCH ×4 (01:15→19:30)
[2023-04-30] MEDS: ALBUTEROL SULFATE 2.5 MG/3 ML NEBU NEB SCH ×4 (01:15→19:30)
[2023-04-30] MEDS: JEVITY 1.2 1000 ML LIQUID GT PRN ×2 (05:20→17:31)
[2023-04-30] MEDS: PANTOPRAZOLE ORAL SUSPENSION 40 MG SUSPDR.PKT GT SCH ×2 (05:20→17:31)
[2023-04-30] MEDS: levETIRAcetam 500 MG/5 ML LIQUID UDC GT SCH ×2 (08:04→21:00)
[2023-04-30] MEDS: KETOCONAZOLE 2% CREAM 30 GM TUBE TP SCH ×2 (08:04→21:00)
[2023-04-30] MEDS: ACIDOPHILUS/BULGARICUS CHEW TAB GT SCH ×2 (08:04→21:00)
[2023-04-30] MEDS: REMEDY ESSENTIAL ZINC PASTE 113 GM TP SCH ×4 (08:05→21:00)
[2023-04-30] MEDS: HYDROGEN PEROXIDE 3% 118 ML BOTTLE TP SCH ×2 (09:00→21:02)
[2023-04-30] MEDS: METOPROLOL TARTRATE 75 MG GT SCH ×2 (09:09→21:00)
[2023-04-30] MEDS: ENOXAPARIN SODIUM 40 MG/0.4 ML DISP.SYRIN SQ SCH (21:00)
[2023-04-30] MEDS: ASCORBIC ACID 500 MG TABLET GT SCH (21:00)
[2023-04-30] MEDS: ACETAMINOPHEN 650 MG/20 ML UDC- SA PATIENTS-PAIN ONLY GT PRN (22:00)
[2023-05-01] VITALS (12 sets, daily range): TEMP 98–99.4; O2SAT 96–99
[2023-05-01] MEDS: IPRATROPIUM BROMIDE 0.5 MG/2.5 ML NEBU NEB SCH ×4 (02:13→19:41)
[2023-05-01] MEDS: ALBUTEROL SULFATE 2.5 MG/3 ML NEBU NEB SCH ×4 (02:14→19:41)
[2023-05-01] MEDS: PANTOPRAZOLE ORAL SUSPENSION 40 MG SUSPDR.PKT GT SCH ×2 (05:59→17:11)
[2023-05-01] MEDS: HYDROGEN PEROXIDE 3% 118 ML BOTTLE TP SCH ×2 (07:33→22:02)
[2023-05-01] MEDS: ACIDOPHILUS/BULGARICUS CHEW TAB GT SCH ×2 (09:00→21:00)
[2023-05-01] MEDS: levETIRAcetam 500 MG/5 ML LIQUID UDC GT SCH ×2 (09:00→21:00)
[2023-05-01] MEDS: KETOCONAZOLE 2% CREAM 30 GM TUBE TP SCH ×2 (09:02→21:00)
[2023-05-01] MEDS: METOPROLOL TARTRATE 75 MG GT SCH ×2 (09:02→21:00)
[2023-05-01] MEDS: REMEDY ESSENTIAL ZINC PASTE 113 GM TP SCH ×4 (09:02→21:00)
[2023-05-01] MEDS: JEVITY 1.2 1000 ML LIQUID GT PRN (15:47)
[2023-05-01] MEDS: ENOXAPARIN SODIUM 40 MG/0.4 ML DISP.SYRIN SQ SCH (21:00)
[2023-05-01] MEDS: ASCORBIC ACID 500 MG TABLET GT SCH (21:00)
[2023-05-02] VITALS (11 sets, daily range): TEMP 98.5–98.9; O2SAT 96–99
[2023-05-02] MEDS: IPRATROPIUM BROMIDE 0.5 MG/2.5 ML NEBU NEB SCH ×4 (01:09→19:19)
[2023-05-02] MEDS: ALBUTEROL SULFATE 2.5 MG/3 ML NEBU NEB SCH ×4 (01:09→19:19)
[2023-05-02] MEDS: PANTOPRAZOLE ORAL SUSPENSION 40 MG SUSPDR.PKT GT SCH ×2 (05:19→17:14)
[2023-05-02] MEDS: HYDROGEN PEROXIDE 3% 118 ML BOTTLE TP SCH ×2 (09:00→21:00)
[2023-05-02] MEDS: levETIRAcetam 500 MG/5 ML LIQUID UDC GT SCH ×2 (09:05→20:19)
[2023-05-02] MEDS: ACIDOPHILUS/BULGARICUS CHEW TAB GT SCH ×2 (09:05→20:19)
[2023-05-02] MEDS: METOPROLOL TARTRATE 75 MG GT SCH ×2 (09:05→20:20)
[2023-05-02] MEDS: KETOCONAZOLE 2% CREAM 30 GM TUBE TP SCH ×2 (09:06→20:21)
[2023-05-02] MEDS: REMEDY ESSENTIAL ZINC PASTE 113 GM TP SCH ×4 (09:06→20:21)
[2023-05-02] MEDS: JEVITY 1.2 1000 ML LIQUID GT PRN (17:14)
[2023-05-02] MEDS: ASCORBIC ACID 500 MG TABLET GT SCH (20:20)
[2023-05-02] MEDS: ENOXAPARIN SODIUM 40 MG/0.4 ML DISP.SYRIN SQ SCH (20:20)
[2023-05-03] VITALS (9 sets, daily range): TEMP 98.2; O2SAT 97–99
[2023-05-03] MEDS: IPRATROPIUM BROMIDE 0.5 MG/2.5 ML NEBU NEB SCH ×4 (00:55→19:32)
[2023-05-03] MEDS: ALBUTEROL SULFATE 2.5 MG/3 ML NEBU NEB SCH ×4 (00:55→19:32)
[2023-05-03] MEDS: JEVITY 1.2 1000 ML LIQUID GT PRN (02:10)
[2023-05-03] MEDS: PANTOPRAZOLE ORAL SUSPENSION 40 MG SUSPDR.PKT GT SCH ×2 (05:08→17:53)
[2023-05-03] MEDS: HYDROGEN PEROXIDE 3% 118 ML BOTTLE TP SCH ×2 (08:54→19:32)
[2023-05-03] MEDS: ACIDOPHILUS/BULGARICUS CHEW TAB GT SCH ×2 (09:00→21:44)
[2023-05-03] MEDS: KETOCONAZOLE 2% SHAMPOO 120 ML BOTTLE TP SCH (09:00)
[2023-05-03] MEDS: levETIRAcetam 500 MG/5 ML LIQUID UDC GT SCH ×2 (09:00→21:44)
[2023-05-03] MEDS: METOPROLOL TARTRATE 75 MG GT SCH ×2 (09:00→21:45)
[2023-05-03] MEDS: KETOCONAZOLE 2% CREAM 30 GM TUBE TP SCH ×2 (09:00→21:46)
[2023-05-03] MEDS: REMEDY ESSENTIAL ZINC PASTE 113 GM TP SCH ×4 (09:00→21:46)
[2023-05-03] MEDS: ASCORBIC ACID 500 MG TABLET GT SCH (21:46)
[2023-05-03] MEDS: ENOXAPARIN SODIUM 40 MG/0.4 ML DISP.SYRIN SQ SCH (21:50)
[2023-05-04] VITALS (11 sets, daily range): TEMP 98–99.4; O2SAT 6–99
[2023-05-04] MEDS: ALBUTEROL SULFATE 2.5 MG/3 ML NEBU NEB SCH ×4 (00:50→19:17)
[2023-05-04] MEDS: IPRATROPIUM BROMIDE 0.5 MG/2.5 ML NEBU NEB SCH ×4 (00:50→19:17)
[2023-05-04] MEDS: PANTOPRAZOLE ORAL SUSPENSION 40 MG SUSPDR.PKT GT SCH ×2 (05:46→18:26)
[2023-05-04] MEDS: HYDROGEN PEROXIDE 3% 118 ML BOTTLE TP SCH ×2 (07:37→19:18)
[2023-05-04] MEDS: KETOCONAZOLE 2% CREAM 30 GM TUBE TP SCH ×2 (08:28→21:00)
[2023-05-04] MEDS: METOPROLOL TARTRATE 75 MG GT SCH ×2 (08:28→21:00)
[2023-05-04] MEDS: REMEDY ESSENTIAL ZINC PASTE 113 GM TP SCH ×4 (08:29→21:00)
[2023-05-04] MEDS: ACIDOPHILUS/BULGARICUS CHEW TAB GT SCH ×2 (08:30→21:00)
[2023-05-04] MEDS: levETIRAcetam 500 MG/5 ML LIQUID UDC GT SCH ×2 (08:31→21:00)
[2023-05-04] MEDS ORDERED: COVID-19 VACC, SPIKEVAX (PHA) 50 MCG/0.5 ML VIAL IM ONE (14:00)
[2023-05-04] MEDS: ASCORBIC ACID 500 MG TABLET GT SCH (21:00)
[2023-05-04] MEDS: ENOXAPARIN SODIUM 40 MG/0.4 ML DISP.SYRIN SQ SCH (21:00)
[2023-05-05] VITALS (14 sets, daily range): TEMP 97.6–99.9; O2SAT 6–99
[2023-05-05] MEDS: ALBUTEROL SULFATE 2.5 MG/3 ML NEBU NEB SCH ×4 (01:51→19:18)
[2023-05-05] MEDS: IPRATROPIUM BROMIDE 0.5 MG/2.5 ML NEBU NEB SCH ×4 (01:51→19:17)
[2023-05-05] MEDS: PANTOPRAZOLE ORAL SUSPENSION 40 MG SUSPDR.PKT GT SCH ×2 (05:28→18:43)
[2023-05-05] MEDS: HYDROGEN PEROXIDE 3% 118 ML BOTTLE TP SCH ×2 (08:30→21:17)
[2023-05-05] MEDS: levETIRAcetam 500 MG/5 ML LIQUID UDC GT SCH ×2 (08:46→21:00)
[2023-05-05] MEDS: ACIDOPHILUS/BULGARICUS CHEW TAB GT SCH ×2 (08:46→21:00)
[2023-05-05] MEDS: METOPROLOL TARTRATE 75 MG GT SCH ×2 (08:48→21:00)
[2023-05-05] MEDS: KETOCONAZOLE 2% CREAM 30 GM TUBE TP SCH ×2 (08:48→21:00)
[2023-05-05] MEDS: REMEDY ESSENTIAL ZINC PASTE 113 GM TP SCH ×4 (08:48→21:00)
[2023-05-05] MEDS: JEVITY 1.2 1000 ML LIQUID GT PRN (18:44)
[2023-05-05] MEDS: ENOXAPARIN SODIUM 40 MG/0.4 ML DISP.SYRIN SQ SCH (21:00)
[2023-05-05] MEDS: ASCORBIC ACID 500 MG TABLET GT SCH (21:00)
[2023-05-06] VITALS (13 sets, daily range): TEMP 97.7–98.8; O2SAT 98–99
[2023-05-06] MEDS: IPRATROPIUM BROMIDE 0.5 MG/2.5 ML NEBU NEB SCH ×4 (01:10→19:09)
[2023-05-06] MEDS: ALBUTEROL SULFATE 2.5 MG/3 ML NEBU NEB SCH ×4 (01:10→19:09)
[2023-05-06] MEDS: PANTOPRAZOLE ORAL SUSPENSION 40 MG SUSPDR.PKT GT SCH ×2 (05:42→18:08)
[2023-05-06] MEDS: ACIDOPHILUS/BULGARICUS CHEW TAB GT SCH ×2 (08:25→21:00)
[2023-05-06] MEDS: levETIRAcetam 500 MG/5 ML LIQUID UDC GT SCH ×2 (08:26→21:00)
[2023-05-06] MEDS: METOPROLOL TARTRATE 75 MG GT SCH ×2 (08:28→21:00)
[2023-05-06] MEDS: KETOCONAZOLE 2% SHAMPOO 120 ML BOTTLE TP SCH (08:28)
[2023-05-06] MEDS: REMEDY ESSENTIAL ZINC PASTE 113 GM TP SCH ×4 (08:28→21:00)
[2023-05-06] MEDS: KETOCONAZOLE 2% CREAM 30 GM TUBE TP SCH ×2 (08:28→21:00)
[2023-05-06] MEDS: HYDROGEN PEROXIDE 3% 118 ML BOTTLE TP SCH ×2 (09:00→20:56)
[2023-05-06] MEDS: JEVITY 1.2 1000 ML LIQUID GT PRN (15:00)
[2023-05-06] MEDS: ASCORBIC ACID 500 MG TABLET GT SCH (21:00)
[2023-05-06] MEDS: ENOXAPARIN SODIUM 40 MG/0.4 ML DISP.SYRIN SQ SCH (21:00)
[2023-05-07] VITALS (16 sets, daily range): TEMP 97.8–98.9; O2SAT 98–99
[2023-05-07] MEDS: ALBUTEROL SULFATE 2.5 MG/3 ML NEBU NEB SCH ×4 (00:35→19:41)
[2023-05-07] MEDS: IPRATROPIUM BROMIDE 0.5 MG/2.5 ML NEBU NEB SCH ×4 (00:35→19:41)
[2023-05-07] MEDS: PANTOPRAZOLE ORAL SUSPENSION 40 MG SUSPDR.PKT GT SCH ×2 (05:16→17:57)
[2023-05-07] MEDS: HYDROGEN PEROXIDE 3% 118 ML BOTTLE TP SCH ×2 (07:33→21:34)
[2023-05-07] MEDS: ACIDOPHILUS/BULGARICUS CHEW TAB GT SCH ×2 (08:39→21:00)
[2023-05-07] MEDS: levETIRAcetam 500 MG/5 ML LIQUID UDC GT SCH ×2 (08:39→21:00)
[2023-05-07] MEDS: KETOCONAZOLE 2% CREAM 30 GM TUBE TP SCH ×2 (08:41→21:00)
[2023-05-07] MEDS: REMEDY ESSENTIAL ZINC PASTE 113 GM TP SCH ×4 (08:41→21:00)
[2023-05-07] MEDS: METOPROLOL TARTRATE 75 MG GT SCH ×2 (08:41→21:00)
[2023-05-07] MEDS: JEVITY 1.2 1000 ML LIQUID GT PRN (08:42)
[2023-05-07] MEDS: ASCORBIC ACID 500 MG TABLET GT SCH (21:00)
[2023-05-07] MEDS: ENOXAPARIN SODIUM 40 MG/0.4 ML DISP.SYRIN SQ SCH (21:00)
[2023-05-08] VITALS (11 sets, daily range): TEMP 98–98.7; O2SAT 98–99
[2023-05-08] MEDS: ALBUTEROL SULFATE 2.5 MG/3 ML NEBU NEB SCH ×5 (01:16→19:30)
[2023-05-08] MEDS: IPRATROPIUM BROMIDE 0.5 MG/2.5 ML NEBU NEB SCH ×5 (01:16→19:30)
[2023-05-08] MEDS: JEVITY 1.2 1000 ML LIQUID GT PRN ×2 (02:47→17:17)
[2023-05-08] MEDS: PANTOPRAZOLE ORAL SUSPENSION 40 MG SUSPDR.PKT GT SCH ×2 (05:15→17:17)
[2023-05-08] MEDS: HYDROGEN PEROXIDE 3% 118 ML BOTTLE TP SCH ×3 (09:00→20:59)
[2023-05-08] MEDS: ACIDOPHILUS/BULGARICUS CHEW TAB GT SCH ×2 (09:40→21:00)
[2023-05-08] MEDS: REMEDY ESSENTIAL ZINC PASTE 113 GM TP SCH ×4 (09:40→21:00)
[2023-05-08] MEDS: levETIRAcetam 500 MG/5 ML LIQUID UDC GT SCH ×2 (09:40→21:00)
[2023-05-08] MEDS: METOPROLOL TARTRATE 75 MG GT SCH ×2 (09:40→21:00)
[2023-05-08] MEDS: KETOCONAZOLE 2% CREAM 30 GM TUBE TP SCH ×2 (09:45→21:00)
[2023-05-08] MEDS: ENOXAPARIN SODIUM 40 MG/0.4 ML DISP.SYRIN SQ SCH (21:00)
[2023-05-08] MEDS: ASCORBIC ACID 500 MG TABLET GT SCH (21:00)
[2023-05-09] VITALS (10 sets, daily range): TEMP 97.6–98.4; O2SAT 99
[2023-05-09] MEDS: ALBUTEROL SULFATE 2.5 MG/3 ML NEBU NEB SCH ×4 (01:40→19:20)
[2023-05-09] MEDS: IPRATROPIUM BROMIDE 0.5 MG/2.5 ML NEBU NEB SCH ×4 (01:40→19:20)
[2023-05-09] MEDS: PANTOPRAZOLE ORAL SUSPENSION 40 MG SUSPDR.PKT GT SCH ×2 (05:21→17:31)
[2023-05-09] MEDS: HYDROGEN PEROXIDE 3% 118 ML BOTTLE TP SCH ×2 (09:00→19:21)
[2023-05-09] MEDS: ACIDOPHILUS/BULGARICUS CHEW TAB GT SCH ×2 (09:14→21:00)
[2023-05-09] MEDS: levETIRAcetam 500 MG/5 ML LIQUID UDC GT SCH ×2 (09:14→21:00)
[2023-05-09] MEDS: METOPROLOL TARTRATE 75 MG GT SCH ×2 (09:16→21:00)
[2023-05-09] MEDS: KETOCONAZOLE 2% CREAM 30 GM TUBE TP SCH ×2 (09:16→21:00)
[2023-05-09] MEDS: REMEDY ESSENTIAL ZINC PASTE 113 GM TP SCH ×4 (09:16→21:00)
[2023-05-09] MEDS: JEVITY 1.2 1000 ML LIQUID GT PRN (15:57)
[2023-05-09] MEDS: ENOXAPARIN SODIUM 40 MG/0.4 ML DISP.SYRIN SQ SCH (21:00)
[2023-05-09] MEDS: ASCORBIC ACID 500 MG TABLET GT SCH (21:00)
[2023-05-10] VITALS (10 sets, daily range): TEMP 97.6–98.6; O2SAT 99
[2023-05-10] MEDS: IPRATROPIUM BROMIDE 0.5 MG/2.5 ML NEBU NEB SCH ×4 (01:43→19:11)
[2023-05-10] MEDS: ALBUTEROL SULFATE 2.5 MG/3 ML NEBU NEB SCH ×4 (01:43→19:11)
[2023-05-10] MEDS: PANTOPRAZOLE ORAL SUSPENSION 40 MG SUSPDR.PKT GT SCH ×2 (05:03→17:10)
[2023-05-10] MEDS: HYDROGEN PEROXIDE 3% 118 ML BOTTLE TP SCH ×2 (09:00→21:00)
[2023-05-10] MEDS: levETIRAcetam 500 MG/5 ML LIQUID UDC GT SCH ×2 (09:13→21:34)
[2023-05-10] MEDS: ACIDOPHILUS/BULGARICUS CHEW TAB GT SCH ×2 (09:13→21:34)
[2023-05-10] MEDS: KETOCONAZOLE 2% CREAM 30 GM TUBE TP SCH ×2 (09:14→21:35)
[2023-05-10] MEDS: METOPROLOL TARTRATE 75 MG GT SCH ×2 (09:14→21:35)
[2023-05-10] MEDS: REMEDY ESSENTIAL ZINC PASTE 113 GM TP SCH ×4 (09:15→21:36)
[2023-05-10] MEDS: KETOCONAZOLE 2% SHAMPOO 120 ML BOTTLE TP SCH (09:15)
[2023-05-10] MEDS: JEVITY 1.2 1000 ML LIQUID GT PRN (14:40)
[2023-05-10] MEDS: ENOXAPARIN SODIUM 40 MG/0.4 ML DISP.SYRIN SQ SCH (21:35)
[2023-05-10] MEDS: ASCORBIC ACID 500 MG TABLET GT SCH (21:35)
[2023-05-11] VITALS (10 sets, daily range): TEMP 98.1–98.7; O2SAT 99
[2023-05-11] MEDS: ALBUTEROL SULFATE 2.5 MG/3 ML NEBU NEB SCH ×4 (01:54→20:45)
[2023-05-11] MEDS: IPRATROPIUM BROMIDE 0.5 MG/2.5 ML NEBU NEB SCH ×4 (01:54→20:44)
[2023-05-11] MEDS: PANTOPRAZOLE ORAL SUSPENSION 40 MG SUSPDR.PKT GT SCH ×2 (05:23→17:44)
[2023-05-11] MEDS: JEVITY 1.2 1000 ML LIQUID GT PRN (05:51)
[2023-05-11] MEDS: HYDROGEN PEROXIDE 3% 118 ML BOTTLE TP SCH ×2 (07:55→21:04)
[2023-05-11] MEDS: levETIRAcetam 500 MG/5 ML LIQUID UDC GT SCH ×2 (09:00→21:00)
[2023-05-11] MEDS: METOPROLOL TARTRATE 75 MG GT SCH ×2 (09:00→21:00)
[2023-05-11] MEDS: REMEDY ESSENTIAL ZINC PASTE 113 GM TP SCH ×4 (09:00→21:00)
[2023-05-11] MEDS: ACIDOPHILUS/BULGARICUS CHEW TAB GT SCH ×2 (09:00→21:00)
[2023-05-11] MEDS: KETOCONAZOLE 2% CREAM 30 GM TUBE TP SCH ×2 (09:00→21:00)
[2023-05-11] MEDS: ASCORBIC ACID 500 MG TABLET GT SCH (21:00)
[2023-05-11] MEDS: ENOXAPARIN SODIUM 40 MG/0.4 ML DISP.SYRIN SQ SCH (21:00)
[2023-05-12] VITALS (10 sets, daily range): TEMP 97.5–98.1; O2SAT 99
[2023-05-12] MEDS: ALBUTEROL SULFATE 2.5 MG/3 ML NEBU NEB SCH ×4 (01:26→19:18)
[2023-05-12] MEDS: IPRATROPIUM BROMIDE 0.5 MG/2.5 ML NEBU NEB SCH ×4 (01:26→19:18)
[2023-05-12] MEDS: PANTOPRAZOLE ORAL SUSPENSION 40 MG SUSPDR.PKT GT SCH ×2 (06:00→18:18)
[2023-05-12] MEDS: HYDROGEN PEROXIDE 3% 118 ML BOTTLE TP SCH ×2 (07:25→19:19)
[2023-05-12] MEDS: REMEDY ESSENTIAL ZINC PASTE 113 GM TP SCH ×4 (09:00→21:33)
[2023-05-12] MEDS: METOPROLOL TARTRATE 75 MG GT SCH ×2 (09:00→21:30)
[2023-05-12] MEDS: ACIDOPHILUS/BULGARICUS CHEW TAB GT SCH ×2 (09:00→21:29)
[2023-05-12] MEDS: KETOCONAZOLE 2% CREAM 30 GM TUBE TP SCH ×2 (09:00→21:30)
[2023-05-12] MEDS: levETIRAcetam 500 MG/5 ML LIQUID UDC GT SCH ×2 (09:00→21:29)
[2023-05-12] MEDS: ASCORBIC ACID 500 MG TABLET GT SCH (21:29)
[2023-05-12] MEDS: ENOXAPARIN SODIUM 40 MG/0.4 ML DISP.SYRIN SQ SCH (21:33)
[2023-05-13] VITALS (8 sets, daily range): TEMP 97.5; O2SAT 98–99
[2023-05-13] MEDS: IPRATROPIUM BROMIDE 0.5 MG/2.5 ML NEBU NEB SCH ×4 (01:03→19:10)
[2023-05-13] MEDS: ALBUTEROL SULFATE 2.5 MG/3 ML NEBU NEB SCH ×4 (01:04→19:10)
[2023-05-13] MEDS: JEVITY 1.2 1000 ML LIQUID GT PRN (02:00)
[2023-05-13] MEDS: PANTOPRAZOLE ORAL SUSPENSION 40 MG SUSPDR.PKT GT SCH ×2 (06:13→18:25)
[2023-05-13] MEDS: ACIDOPHILUS/BULGARICUS CHEW TAB GT SCH ×2 (08:28→21:28)
[2023-05-13] MEDS: levETIRAcetam 500 MG/5 ML LIQUID UDC GT SCH ×2 (08:28→21:28)
[2023-05-13] MEDS: METOPROLOL TARTRATE 75 MG GT SCH ×2 (08:29→21:29)
[2023-05-13] MEDS: KETOCONAZOLE 2% CREAM 30 GM TUBE TP SCH ×2 (08:32→21:29)
[2023-05-13] MEDS: KETOCONAZOLE 2% SHAMPOO 120 ML BOTTLE TP SCH (08:34)
[2023-05-13] MEDS: REMEDY ESSENTIAL ZINC PASTE 113 GM TP SCH ×4 (08:35→21:30)
[2023-05-13] MEDS: HYDROGEN PEROXIDE 3% 118 ML BOTTLE TP SCH ×2 (09:00→21:30)
[2023-05-13] MEDS: ASCORBIC ACID 500 MG TABLET GT SCH (21:29)
[2023-05-13] MEDS: ENOXAPARIN SODIUM 40 MG/0.4 ML DISP.SYRIN SQ SCH (21:29)
[2023-05-14] VITALS (10 sets, daily range): TEMP 97.8–98.1; O2SAT 98–99
[2023-05-14] MEDS: ALBUTEROL SULFATE 2.5 MG/3 ML NEBU NEB SCH ×4 (01:05→19:30)
[2023-05-14] MEDS: IPRATROPIUM BROMIDE 0.5 MG/2.5 ML NEBU NEB SCH ×4 (01:05→19:30)
[2023-05-14] MEDS: PANTOPRAZOLE ORAL SUSPENSION 40 MG SUSPDR.PKT GT SCH ×2 (06:03→18:40)
[2023-05-14] MEDS: HYDROGEN PEROXIDE 3% 118 ML BOTTLE TP SCH ×2 (07:50→21:09)
[2023-05-14] MEDS: levETIRAcetam 500 MG/5 ML LIQUID UDC GT SCH ×2 (08:38→20:26)
[2023-05-14] MEDS: ACIDOPHILUS/BULGARICUS CHEW TAB GT SCH ×2 (08:38→20:26)
[2023-05-14] MEDS: METOPROLOL TARTRATE 75 MG GT SCH ×2 (08:40→20:29)
[2023-05-14] MEDS: KETOCONAZOLE 2% CREAM 30 GM TUBE TP SCH ×2 (08:41→20:27)
[2023-05-14] MEDS: REMEDY ESSENTIAL ZINC PASTE 113 GM TP SCH ×4 (08:41→20:29)
[2023-05-14] MEDS: ASCORBIC ACID 500 MG TABLET GT SCH (20:27)
[2023-05-14] MEDS: ENOXAPARIN SODIUM 40 MG/0.4 ML DISP.SYRIN SQ SCH (21:15)
[2023-05-15] VITALS (10 sets, daily range): BP systolic 97–115; BP diastolic 63–64; TEMP 97–98.1; O2SAT 95–99
[2023-05-15] MEDS: IPRATROPIUM BROMIDE 0.5 MG/2.5 ML NEBU NEB SCH ×4 (01:55→21:25)
[2023-05-15] MEDS: ALBUTEROL SULFATE 2.5 MG/3 ML NEBU NEB SCH ×4 (01:55→21:26)
[2023-05-15] MEDS: JEVITY 1.2 1000 ML LIQUID GT PRN (02:57)
[2023-05-15] MEDS: PANTOPRAZOLE ORAL SUSPENSION 40 MG SUSPDR.PKT GT SCH ×2 (05:44→18:38)
[2023-05-15] MEDS: HYDROGEN PEROXIDE 3% 118 ML BOTTLE TP SCH ×2 (08:00→21:26)
[2023-05-15] MEDS: ACIDOPHILUS/BULGARICUS CHEW TAB GT SCH ×2 (09:34→21:00)
[2023-05-15] MEDS: levETIRAcetam 500 MG/5 ML LIQUID UDC GT SCH ×2 (09:34→21:00)
[2023-05-15] MEDS: METOPROLOL TARTRATE 75 MG GT SCH ×2 (09:36→21:00)
[2023-05-15] MEDS: REMEDY ESSENTIAL ZINC PASTE 113 GM TP SCH ×4 (09:38→21:00)
[2023-05-15] MEDS: KETOCONAZOLE 2% CREAM 30 GM TUBE TP SCH ×2 (09:38→21:00)
[2023-05-15] MEDS: ENOXAPARIN SODIUM 40 MG/0.4 ML DISP.SYRIN SQ SCH (21:00)
[2023-05-15] MEDS: ASCORBIC ACID 500 MG TABLET GT SCH (21:00)
[2023-05-16] VITALS (12 sets, daily range): TEMP 97.9–98.8; O2SAT 99
[2023-05-16] MEDS: IPRATROPIUM BROMIDE 0.5 MG/2.5 ML NEBU NEB SCH ×4 (01:32→21:24)
[2023-05-16] MEDS: ALBUTEROL SULFATE 2.5 MG/3 ML NEBU NEB SCH ×4 (01:32→21:24)
[2023-05-16] MEDS: PANTOPRAZOLE ORAL SUSPENSION 40 MG SUSPDR.PKT GT SCH ×2 (06:04→18:28)
[2023-05-16] MEDS: HYDROGEN PEROXIDE 3% 118 ML BOTTLE TP SCH ×2 (09:01→21:25)
[2023-05-16] MEDS: levETIRAcetam 500 MG/5 ML LIQUID UDC GT SCH ×2 (09:10→21:00)
[2023-05-16] MEDS: ACIDOPHILUS/BULGARICUS CHEW TAB GT SCH ×2 (09:10→21:00)
[2023-05-16] MEDS: KETOCONAZOLE 2% CREAM 30 GM TUBE TP SCH ×2 (09:18→21:00)
[2023-05-16] MEDS: REMEDY ESSENTIAL ZINC PASTE 113 GM TP SCH ×4 (09:18→22:00)
[2023-05-16] MEDS: METOPROLOL TARTRATE 75 MG GT SCH ×2 (09:20→21:00)
[2023-05-16] MEDS: JEVITY 1.2 1000 ML LIQUID GT PRN (13:53)
[2023-05-16] MEDS: ENOXAPARIN SODIUM 40 MG/0.4 ML DISP.SYRIN SQ SCH (21:00)
[2023-05-16] MEDS: ASCORBIC ACID 500 MG TABLET GT SCH (21:00)
[2023-05-17] VITALS (11 sets, daily range): TEMP 98.2–98.3; O2SAT 97–99
[2023-05-17] MEDS: IPRATROPIUM BROMIDE 0.5 MG/2.5 ML NEBU NEB SCH ×4 (00:42→19:04)
[2023-05-17] MEDS: ALBUTEROL SULFATE 2.5 MG/3 ML NEBU NEB SCH ×4 (00:42→19:04)
[2023-05-17] MEDS: PANTOPRAZOLE ORAL SUSPENSION 40 MG SUSPDR.PKT GT SCH ×2 (06:03→18:43)
[2023-05-17] MEDS: JEVITY 1.2 1000 ML LIQUID GT PRN ×2 (07:09→15:41)
[2023-05-17] MEDS: ACIDOPHILUS/BULGARICUS CHEW TAB GT SCH ×2 (08:53→21:09)
[2023-05-17] MEDS: levETIRAcetam 500 MG/5 ML LIQUID UDC GT SCH ×2 (08:55→21:09)
[2023-05-17] MEDS: METOPROLOL TARTRATE 75 MG GT SCH ×2 (08:57→21:10)
[2023-05-17] MEDS: KETOCONAZOLE 2% CREAM 30 GM TUBE TP SCH ×2 (08:59→21:11)
[2023-05-17] MEDS: KETOCONAZOLE 2% SHAMPOO 120 ML BOTTLE TP SCH (08:59)
[2023-05-17] MEDS: REMEDY ESSENTIAL ZINC PASTE 113 GM TP SCH ×4 (08:59→21:12)
[2023-05-17] MEDS: HYDROGEN PEROXIDE 3% 118 ML BOTTLE TP SCH ×2 (09:17→21:10)
[2023-05-17] MEDS: ASCORBIC ACID 500 MG TABLET GT SCH (21:10)
[2023-05-17] MEDS: ENOXAPARIN SODIUM 40 MG/0.4 ML DISP.SYRIN SQ SCH (21:11)
[2023-05-18] VITALS (10 sets, daily range): TEMP 97.9–98; O2SAT 97–99
[2023-05-18] MEDS: IPRATROPIUM BROMIDE 0.5 MG/2.5 ML NEBU NEB SCH ×4 (01:04→20:21)
[2023-05-18] MEDS: ALBUTEROL SULFATE 2.5 MG/3 ML NEBU NEB SCH ×4 (01:04→20:21)
[2023-05-18] MEDS: PANTOPRAZOLE ORAL SUSPENSION 40 MG SUSPDR.PKT GT SCH ×2 (05:36→17:51)
[2023-05-18] MEDS: HYDROGEN PEROXIDE 3% 118 ML BOTTLE TP SCH ×2 (08:45→21:00)
[2023-05-18] MEDS: levETIRAcetam 500 MG/5 ML LIQUID UDC GT SCH ×2 (09:19→21:59)
[2023-05-18] MEDS: ACIDOPHILUS/BULGARICUS CHEW TAB GT SCH ×2 (09:19→21:59)
[2023-05-18] MEDS: METOPROLOL TARTRATE 75 MG GT SCH ×2 (09:21→21:59)
[2023-05-18] MEDS: REMEDY ESSENTIAL ZINC PASTE 113 GM TP SCH ×4 (09:21→21:00)
[2023-05-18] MEDS: KETOCONAZOLE 2% CREAM 30 GM TUBE TP SCH ×2 (09:21→21:00)
[2023-05-18] MEDS: JEVITY 1.2 1000 ML LIQUID GT PRN (16:44)
[2023-05-18] MEDS: ASCORBIC ACID 500 MG TABLET GT SCH (21:59)
[2023-05-18] MEDS: ENOXAPARIN SODIUM 40 MG/0.4 ML DISP.SYRIN SQ SCH (22:00)
[2023-05-19] VITALS (10 sets, daily range): TEMP 97–98.6; O2SAT 98–99
[2023-05-19] MEDS: ALBUTEROL SULFATE 2.5 MG/3 ML NEBU NEB SCH ×4 (01:11→19:32)
[2023-05-19] MEDS: IPRATROPIUM BROMIDE 0.5 MG/2.5 ML NEBU NEB SCH ×4 (01:11→19:32)
[2023-05-19] MEDS: PANTOPRAZOLE ORAL SUSPENSION 40 MG SUSPDR.PKT GT SCH ×2 (06:08→18:00)
[2023-05-19] MEDS: METOPROLOL TARTRATE 75 MG GT SCH ×2 (09:00→21:45)
[2023-05-19] MEDS: HYDROGEN PEROXIDE 3% 118 ML BOTTLE TP SCH ×2 (09:00→22:57)
[2023-05-19] MEDS: ACIDOPHILUS/BULGARICUS CHEW TAB GT SCH ×2 (09:36→21:44)
[2023-05-19] MEDS: levETIRAcetam 500 MG/5 ML LIQUID UDC GT SCH ×2 (09:36→21:44)
[2023-05-19] MEDS: REMEDY ESSENTIAL ZINC PASTE 113 GM TP SCH ×4 (09:37→21:46)
[2023-05-19] MEDS: KETOCONAZOLE 2% CREAM 30 GM TUBE TP SCH ×2 (09:37→21:46)
[2023-05-19] MEDS: JEVITY 1.2 1000 ML LIQUID GT PRN (15:53)
[2023-05-19] MEDS: ASCORBIC ACID 500 MG TABLET GT SCH (21:45)
[2023-05-19] MEDS: ENOXAPARIN SODIUM 40 MG/0.4 ML DISP.SYRIN SQ SCH (21:46)
[2023-05-20] VITALS (13 sets, daily range): TEMP 97.9–98.6; O2SAT 98–99
[2023-05-20] MEDS: IPRATROPIUM BROMIDE 0.5 MG/2.5 ML NEBU NEB SCH ×4 (02:21→19:24)
[2023-05-20] MEDS: ALBUTEROL SULFATE 2.5 MG/3 ML NEBU NEB SCH ×4 (02:21→19:24)
[2023-05-20] MEDS: PANTOPRAZOLE ORAL SUSPENSION 40 MG SUSPDR.PKT GT SCH ×2 (05:39→17:21)
[2023-05-20] MEDS: ACIDOPHILUS/BULGARICUS CHEW TAB GT SCH ×2 (08:12→21:14)
[2023-05-20] MEDS: METOPROLOL TARTRATE 75 MG GT SCH ×2 (08:14→21:14)
[2023-05-20] MEDS: levETIRAcetam 500 MG/5 ML LIQUID UDC GT SCH ×2 (08:14→21:14)
[2023-05-20] MEDS: KETOCONAZOLE 2% CREAM 30 GM TUBE TP SCH ×2 (08:16→21:17)
[2023-05-20] MEDS: REMEDY ESSENTIAL ZINC PASTE 113 GM TP SCH ×4 (08:16→21:17)
[2023-05-20] MEDS: KETOCONAZOLE 2% SHAMPOO 120 ML BOTTLE TP SCH (08:16)
[2023-05-20] MEDS: HYDROGEN PEROXIDE 3% 118 ML BOTTLE TP SCH ×2 (09:13→21:58)
[2023-05-20] MEDS: JEVITY 1.2 1000 ML LIQUID GT PRN (13:32)
[2023-05-20] MEDS: ASCORBIC ACID 500 MG TABLET GT SCH (21:14)
[2023-05-20] MEDS: ENOXAPARIN SODIUM 40 MG/0.4 ML DISP.SYRIN SQ SCH (21:17)
[2023-05-21] VITALS (11 sets, daily range): TEMP 97.1–97.4; O2SAT 98–99
[2023-05-21] MEDS: ALBUTEROL SULFATE 2.5 MG/3 ML NEBU NEB SCH ×4 (04:09→19:20)
[2023-05-21] MEDS: IPRATROPIUM BROMIDE 0.5 MG/2.5 ML NEBU NEB SCH ×4 (04:09→19:20)
[2023-05-21] MEDS: PANTOPRAZOLE ORAL SUSPENSION 40 MG SUSPDR.PKT GT SCH ×2 (05:26→17:02)
[2023-05-21] MEDS: HYDROGEN PEROXIDE 3% 118 ML BOTTLE TP SCH ×2 (08:26→19:20)
[2023-05-21] MEDS: ACIDOPHILUS/BULGARICUS CHEW TAB GT SCH ×2 (09:22→21:00)
[2023-05-21] MEDS: levETIRAcetam 500 MG/5 ML LIQUID UDC GT SCH ×2 (09:25→21:00)
[2023-05-21] MEDS: KETOCONAZOLE 2% CREAM 30 GM TUBE TP SCH ×2 (09:26→21:00)
[2023-05-21] MEDS: METOPROLOL TARTRATE 75 MG GT SCH ×2 (09:26→21:00)
[2023-05-21] MEDS: REMEDY ESSENTIAL ZINC PASTE 113 GM TP SCH ×4 (09:26→21:00)
[2023-05-21] MEDS: JEVITY 1.2 1000 ML LIQUID GT PRN (09:27)
[2023-05-21] MEDS: ASCORBIC ACID 500 MG TABLET GT SCH (21:00)
[2023-05-21] MEDS: ENOXAPARIN SODIUM 40 MG/0.4 ML DISP.SYRIN SQ SCH (21:00)
[2023-05-22] VITALS (10 sets, daily range): TEMP 98.3–98.4; O2SAT 98–99
[2023-05-22] MEDS: IPRATROPIUM BROMIDE 0.5 MG/2.5 ML NEBU NEB SCH ×4 (01:23→19:46)
[2023-05-22] MEDS: ALBUTEROL SULFATE 2.5 MG/3 ML NEBU NEB SCH ×4 (01:23→19:46)
[2023-05-22] MEDS: JEVITY 1.2 1000 ML LIQUID GT PRN (05:03)
[2023-05-22] MEDS: PANTOPRAZOLE ORAL SUSPENSION 40 MG SUSPDR.PKT GT SCH ×2 (05:03→17:11)
[2023-05-22] MEDS: HYDROGEN PEROXIDE 3% 118 ML BOTTLE TP SCH ×2 (08:49→21:17)
[2023-05-22] MEDS: ACIDOPHILUS/BULGARICUS CHEW TAB GT SCH ×2 (09:16→21:01)
[2023-05-22] MEDS: METOPROLOL TARTRATE 75 MG GT SCH ×2 (09:16→21:06)
[2023-05-22] MEDS: KETOCONAZOLE 2% CREAM 30 GM TUBE TP SCH ×2 (09:16→21:01)
[2023-05-22] MEDS: levETIRAcetam 500 MG/5 ML LIQUID UDC GT SCH ×2 (09:16→21:05)
[2023-05-22] MEDS: REMEDY ESSENTIAL ZINC PASTE 113 GM TP SCH ×4 (09:16→21:02)
[2023-05-22] MEDS: ASCORBIC ACID 500 MG TABLET GT SCH (21:01)
[2023-05-22] MEDS: ENOXAPARIN SODIUM 40 MG/0.4 ML DISP.SYRIN SQ SCH (22:43)
[2023-05-23] VITALS (11 sets, daily range): TEMP 97.8–98.8; O2SAT 97–100
[2023-05-23] MEDS: ALBUTEROL SULFATE 2.5 MG/3 ML NEBU NEB SCH ×4 (01:04→19:15)
[2023-05-23] MEDS: IPRATROPIUM BROMIDE 0.5 MG/2.5 ML NEBU NEB SCH ×4 (01:04→19:15)
[2023-05-23] MEDS: ACETAMINOPHEN 650 MG/20 ML UDC- SA PATIENTS-PAIN ONLY GT PRN (01:43)
[2023-05-23] MEDS: PANTOPRAZOLE ORAL SUSPENSION 40 MG SUSPDR.PKT GT SCH ×2 (06:14→17:50)
[2023-05-23] MEDS: levETIRAcetam 500 MG/5 ML LIQUID UDC GT SCH ×2 (08:47→21:08)
[2023-05-23] MEDS: ACIDOPHILUS/BULGARICUS CHEW TAB GT SCH ×2 (08:47→21:07)
[2023-05-23] MEDS: METOPROLOL TARTRATE 75 MG GT SCH ×2 (08:48→21:00)
[2023-05-23] MEDS: KETOCONAZOLE 2% CREAM 30 GM TUBE TP SCH ×2 (08:49→21:09)
[2023-05-23] MEDS: REMEDY ESSENTIAL ZINC PASTE 113 GM TP SCH ×4 (08:49→21:07)
[2023-05-23] MEDS: HYDROGEN PEROXIDE 3% 118 ML BOTTLE TP SCH ×2 (09:00→19:15)
[2023-05-23] MEDS: ASCORBIC ACID 500 MG TABLET GT SCH (21:07)
[2023-05-23] MEDS: ENOXAPARIN SODIUM 40 MG/0.4 ML DISP.SYRIN SQ SCH (22:24)
[2023-05-23] MEDS: JEVITY 1.2 1000 ML LIQUID GT PRN (22:24)
[2023-05-24] VITALS (10 sets, daily range): TEMP 98.7–98.8; O2SAT 96–99
[2023-05-24] MEDS: IPRATROPIUM BROMIDE 0.5 MG/2.5 ML NEBU NEB SCH ×4 (01:04→19:15)
[2023-05-24] MEDS: ALBUTEROL SULFATE 2.5 MG/3 ML NEBU NEB SCH ×4 (01:04→19:15)
[2023-05-24] MEDS: PANTOPRAZOLE ORAL SUSPENSION 40 MG SUSPDR.PKT GT SCH ×2 (05:02→18:19)
[2023-05-24] MEDS: METOPROLOL TARTRATE 75 MG GT SCH ×2 (09:00→21:34)
[2023-05-24] MEDS: ACIDOPHILUS/BULGARICUS CHEW TAB GT SCH ×2 (09:03→21:33)
[2023-05-24] MEDS: KETOCONAZOLE 2% CREAM 30 GM TUBE TP SCH ×2 (09:03→21:36)
[2023-05-24] MEDS: levETIRAcetam 500 MG/5 ML LIQUID UDC GT SCH ×2 (09:03→21:33)
[2023-05-24] MEDS: REMEDY ESSENTIAL ZINC PASTE 113 GM TP SCH ×4 (09:04→21:38)
[2023-05-24] MEDS: KETOCONAZOLE 2% SHAMPOO 120 ML BOTTLE TP SCH (09:04)
[2023-05-24] MEDS: HYDROGEN PEROXIDE 3% 118 ML BOTTLE TP SCH ×2 (09:15→19:15)
[2023-05-24] MEDS: JEVITY 1.2 1000 ML LIQUID GT PRN (18:21)
[2023-05-24] MEDS: ASCORBIC ACID 500 MG TABLET GT SCH (21:35)
[2023-05-24] MEDS: ENOXAPARIN SODIUM 40 MG/0.4 ML DISP.SYRIN SQ SCH (21:35)
[2023-05-25] VITALS (11 sets, daily range): TEMP 98.6–98.7; O2SAT 96–98
[2023-05-25] MEDS: IPRATROPIUM BROMIDE 0.5 MG/2.5 ML NEBU NEB SCH ×4 (01:12→21:42)
[2023-05-25] MEDS: ALBUTEROL SULFATE 2.5 MG/3 ML NEBU NEB SCH ×4 (01:12→21:42)
[2023-05-25] MEDS: PANTOPRAZOLE ORAL SUSPENSION 40 MG SUSPDR.PKT GT SCH ×2 (05:41→18:06)
[2023-05-25] MEDS: KETOCONAZOLE 2% CREAM 30 GM TUBE TP SCH (09:00)
[2023-05-25] MEDS: REMEDY ESSENTIAL ZINC PASTE 113 GM TP SCH ×4 (09:00→21:36)
[2023-05-25] MEDS: HYDROGEN PEROXIDE 3% 118 ML BOTTLE TP SCH ×2 (09:00→21:42)
[2023-05-25] MEDS: ACIDOPHILUS/BULGARICUS CHEW TAB GT SCH ×2 (09:09→21:34)
[2023-05-25] MEDS: levETIRAcetam 500 MG/5 ML LIQUID UDC GT SCH ×2 (09:09→21:34)
[2023-05-25] MEDS: METOPROLOL TARTRATE 75 MG GT SCH ×2 (09:12→21:35)
[2023-05-25] MEDS: JEVITY 1.2 1000 ML LIQUID GT PRN (14:00)
[2023-05-25] MEDS: ASCORBIC ACID 500 MG TABLET GT SCH (21:35)
[2023-05-25] MEDS: ENOXAPARIN SODIUM 40 MG/0.4 ML DISP.SYRIN SQ SCH (21:36)
[2023-05-26] VITALS (11 sets, daily range): TEMP 98.5–98.7; O2SAT 96–98
[2023-05-26] MEDS: IPRATROPIUM BROMIDE 0.5 MG/2.5 ML NEBU NEB SCH ×4 (05:33→19:21)
[2023-05-26] MEDS: ALBUTEROL SULFATE 2.5 MG/3 ML NEBU NEB SCH ×4 (05:33→19:21)
[2023-05-26] MEDS: PANTOPRAZOLE ORAL SUSPENSION 40 MG SUSPDR.PKT GT SCH ×2 (05:36→18:37)
[2023-05-26] MEDS: METOPROLOL TARTRATE 75 MG GT SCH ×2 (09:00→21:57)
[2023-05-26] MEDS: ACIDOPHILUS/BULGARICUS CHEW TAB GT SCH ×2 (09:10→21:55)
[2023-05-26] MEDS: levETIRAcetam 500 MG/5 ML LIQUID UDC GT SCH ×2 (09:11→21:55)
[2023-05-26] MEDS: REMEDY ESSENTIAL ZINC PASTE 113 GM TP SCH ×4 (09:18→21:58)
[2023-05-26] MEDS: HYDROGEN PEROXIDE 3% 118 ML BOTTLE TP SCH ×2 (09:52→19:21)
[2023-05-26] MEDS: JEVITY 1.2 1000 ML LIQUID GT PRN (15:37)
[2023-05-26 17:52] LABS: *BILIRUBIN,URIN NEGATIVE (NEGATIVE); *BLOOD, URINE NEGATIVE (NEGATIVE); *CLARITY,URINE CLEAR (CLEAR); *COLOR,URINE YELLOW (YELLOW); *KETONES,URINE NEGATIVE (NEGATIVE); *PROTEIN,URINE NEGATIVE (NEGATIVE); *UROBILINOGEN,URINE 0.2 E.U./dl (NORMAL); LEUKOCYTE ESTERASE ,URINE NEGATIVE (NEGATIVE); NITRITE, URINE NEGATIVE (NEGATIVE); PH,URINE 7.5 (5.0-8.0); UGLUCOSE NEGATIVE (NEGATIVE)
[2023-05-26] MEDS: ASCORBIC ACID 500 MG TABLET GT SCH (21:57)
[2023-05-26] MEDS: ENOXAPARIN SODIUM 40 MG/0.4 ML DISP.SYRIN SQ SCH (21:57)
[2023-05-27] VITALS (9 sets, daily range): TEMP 97.5; O2SAT 98–99
[2023-05-27] MEDS: IPRATROPIUM BROMIDE 0.5 MG/2.5 ML NEBU NEB SCH ×4 (01:31→19:09)
[2023-05-27] MEDS: ALBUTEROL SULFATE 2.5 MG/3 ML NEBU NEB SCH ×4 (01:31→19:09)
[2023-05-27] MEDS: PANTOPRAZOLE ORAL SUSPENSION 40 MG SUSPDR.PKT GT SCH ×2 (05:23→17:00)
[2023-05-27] MEDS: METOPROLOL TARTRATE 75 MG GT SCH ×2 (09:00→20:51)
[2023-05-27] MEDS: ACIDOPHILUS/BULGARICUS CHEW TAB GT SCH ×2 (09:07→20:48)
[2023-05-27] MEDS: REMEDY ESSENTIAL ZINC PASTE 113 GM TP SCH ×4 (09:08→20:53)
[2023-05-27] MEDS: levETIRAcetam 500 MG/5 ML LIQUID UDC GT SCH ×2 (09:08→20:48)
[2023-05-27] MEDS: KETOCONAZOLE 2% SHAMPOO 120 ML BOTTLE TP SCH (09:08)
[2023-05-27] MEDS: HYDROGEN PEROXIDE 3% 118 ML BOTTLE TP SCH ×2 (09:36→19:09)
[2023-05-27] MEDS: JEVITY 1.2 1000 ML LIQUID GT PRN (17:03)
[2023-05-27] MEDS: ASCORBIC ACID 500 MG TABLET GT SCH (20:49)
[2023-05-27] MEDS: ENOXAPARIN SODIUM 40 MG/0.4 ML DISP.SYRIN SQ SCH (20:53)
[2023-05-27] MEDS: ACETAMINOPHEN 650 MG/20 ML UDC- SA PATIENTS-PAIN ONLY GT PRN (21:32)
[2023-05-28] VITALS (8 sets, daily range): TEMP 97.5; O2SAT 98
[2023-05-28] MEDS: ALBUTEROL SULFATE 2.5 MG/3 ML NEBU NEB SCH ×4 (01:20→19:28)
[2023-05-28] MEDS: IPRATROPIUM BROMIDE 0.5 MG/2.5 ML NEBU NEB SCH ×4 (01:20→19:28)
[2023-05-28] MEDS: PANTOPRAZOLE ORAL SUSPENSION 40 MG SUSPDR.PKT GT SCH ×2 (05:40→17:16)
[2023-05-28] MEDS: HYDROGEN PEROXIDE 3% 118 ML BOTTLE TP SCH ×2 (09:15→19:28)
[2023-05-28] MEDS: levETIRAcetam 500 MG/5 ML LIQUID UDC GT SCH ×2 (09:42→21:45)
[2023-05-28] MEDS: REMEDY ESSENTIAL ZINC PASTE 113 GM TP SCH ×4 (09:42→21:46)
[2023-05-28] MEDS: ACIDOPHILUS/BULGARICUS CHEW TAB GT SCH ×2 (09:43→21:45)
[2023-05-28] MEDS: METOPROLOL TARTRATE 75 MG GT SCH ×2 (09:51→21:45)
[2023-05-28] MEDS: JEVITY 1.2 1000 ML LIQUID GT PRN (15:20)
[2023-05-28] MEDS: ENOXAPARIN SODIUM 40 MG/0.4 ML DISP.SYRIN SQ SCH (21:00)
[2023-05-28] MEDS: ASCORBIC ACID 500 MG TABLET GT SCH (21:45)
[2023-05-29] VITALS (10 sets, daily range): TEMP 97.6–97.7; O2SAT 98–99
[2023-05-29] MEDS: IPRATROPIUM BROMIDE 0.5 MG/2.5 ML NEBU NEB SCH ×4 (01:24→19:09)
[2023-05-29] MEDS: ALBUTEROL SULFATE 2.5 MG/3 ML NEBU NEB SCH ×4 (01:24→19:09)
[2023-05-29] MEDS: PANTOPRAZOLE ORAL SUSPENSION 40 MG SUSPDR.PKT GT SCH ×2 (06:54→18:12)
[2023-05-29] MEDS: HYDROGEN PEROXIDE 3% 118 ML BOTTLE TP SCH ×2 (07:35→21:15)
[2023-05-29] MEDS: ACIDOPHILUS/BULGARICUS CHEW TAB GT SCH ×2 (09:40→21:48)
[2023-05-29] MEDS: METOPROLOL TARTRATE 75 MG GT SCH ×2 (09:42→21:49)
[2023-05-29] MEDS: levETIRAcetam 500 MG/5 ML LIQUID UDC GT SCH ×2 (09:42→21:48)
[2023-05-29] MEDS: REMEDY ESSENTIAL ZINC PASTE 113 GM TP SCH ×4 (09:42→21:49)
[2023-05-29] MEDS: JEVITY 1.2 1000 ML LIQUID GT PRN (13:13)
[2023-05-29] MEDS: ENOXAPARIN SODIUM 40 MG/0.4 ML DISP.SYRIN SQ SCH (21:00)
[2023-05-29] MEDS: ASCORBIC ACID 500 MG TABLET GT SCH (21:49)
[2023-05-30] VITALS (12 sets, daily range): TEMP 97.6–98.3; O2SAT 98
[2023-05-30] MEDS: IPRATROPIUM BROMIDE 0.5 MG/2.5 ML NEBU NEB SCH ×4 (01:11→19:08)
[2023-05-30] MEDS: ALBUTEROL SULFATE 2.5 MG/3 ML NEBU NEB SCH ×4 (01:11→19:08)
[2023-05-30] MEDS: JEVITY 1.2 1000 ML LIQUID GT PRN ×2 (03:46→22:47)
[2023-05-30] MEDS: PANTOPRAZOLE ORAL SUSPENSION 40 MG SUSPDR.PKT GT SCH ×2 (05:35→17:16)
[2023-05-30] MEDS: ACIDOPHILUS/BULGARICUS CHEW TAB GT SCH ×2 (09:14→21:00)
[2023-05-30] MEDS: METOPROLOL TARTRATE 75 MG GT SCH ×2 (09:15→21:00)
[2023-05-30] MEDS: REMEDY ESSENTIAL ZINC PASTE 113 GM TP SCH ×4 (09:15→21:00)
[2023-05-30] MEDS: levETIRAcetam 500 MG/5 ML LIQUID UDC GT SCH ×2 (09:15→21:00)
[2023-05-30] MEDS: HYDROGEN PEROXIDE 3% 118 ML BOTTLE TP SCH ×2 (09:51→19:08)
[2023-05-30] MEDS: ASCORBIC ACID 500 MG TABLET GT SCH (21:00)
[2023-05-30] MEDS: ENOXAPARIN SODIUM 40 MG/0.4 ML DISP.SYRIN SQ SCH (21:00)
[2023-05-31] VITALS (10 sets, daily range): TEMP 96.8–98.1; O2SAT 97–99
[2023-05-31] MEDS: ALBUTEROL SULFATE 2.5 MG/3 ML NEBU NEB SCH ×4 (00:33→19:17)
[2023-05-31] MEDS: IPRATROPIUM BROMIDE 0.5 MG/2.5 ML NEBU NEB SCH ×4 (00:33→19:17)
[2023-05-31] MEDS: PANTOPRAZOLE ORAL SUSPENSION 40 MG SUSPDR.PKT GT SCH ×2 (05:20→18:05)
[2023-05-31] MEDS: HYDROGEN PEROXIDE 3% 118 ML BOTTLE TP SCH ×2 (07:12→19:17)
[2023-05-31] MEDS: ACIDOPHILUS/BULGARICUS CHEW TAB GT SCH ×2 (09:26→20:13)
[2023-05-31] MEDS: REMEDY ESSENTIAL ZINC PASTE 113 GM TP SCH ×4 (09:29→20:14)
[2023-05-31] MEDS: KETOCONAZOLE 2% SHAMPOO 120 ML BOTTLE TP SCH (09:29)
[2023-05-31] MEDS: levETIRAcetam 500 MG/5 ML LIQUID UDC GT SCH ×2 (09:29→20:13)
[2023-05-31] MEDS: METOPROLOL TARTRATE 75 MG GT SCH ×2 (09:37→20:14)
[2023-05-31] MEDS: ASCORBIC ACID 500 MG TABLET GT SCH (20:14)
[2023-05-31] MEDS: JEVITY 1.2 1000 ML LIQUID GT PRN (21:09)
[2023-06-01] VITALS (10 sets, daily range): TEMP 97.1–97.2; O2SAT 97–99
[2023-06-01] MEDS: ALBUTEROL SULFATE 2.5 MG/3 ML NEBU NEB SCH ×4 (00:50→20:15)
[2023-06-01] MEDS: IPRATROPIUM BROMIDE 0.5 MG/2.5 ML NEBU NEB SCH ×4 (00:50→20:15)
[2023-06-01] MEDS: PANTOPRAZOLE ORAL SUSPENSION 40 MG SUSPDR.PKT GT SCH ×2 (05:08→17:36)
[2023-06-01] MEDS: HYDROGEN PEROXIDE 3% 118 ML BOTTLE TP SCH ×2 (09:00→20:15)
[2023-06-01] MEDS: ACIDOPHILUS/BULGARICUS CHEW TAB GT SCH ×2 (09:02→21:38)
[2023-06-01] MEDS: levETIRAcetam 500 MG/5 ML LIQUID UDC GT SCH ×2 (09:03→21:38)
[2023-06-01] MEDS: METOPROLOL TARTRATE 75 MG GT SCH ×2 (09:06→21:39)
[2023-06-01] MEDS: REMEDY ESSENTIAL ZINC PASTE 113 GM TP SCH ×4 (09:06→21:39)
[2023-06-01] MEDS: JEVITY 1.2 1000 ML LIQUID GT PRN (17:36)
[2023-06-01] MEDS: ASCORBIC ACID 500 MG TABLET GT SCH (21:39)
[2023-06-02] VITALS (11 sets, daily range): TEMP 98–99; O2SAT 97–99
[2023-06-02] MEDS: ALBUTEROL SULFATE 2.5 MG/3 ML NEBU NEB SCH ×4 (01:21→19:30)
[2023-06-02] MEDS: IPRATROPIUM BROMIDE 0.5 MG/2.5 ML NEBU NEB SCH ×4 (01:21→19:29)
[2023-06-02] MEDS: PANTOPRAZOLE ORAL SUSPENSION 40 MG SUSPDR.PKT GT SCH ×2 (05:24→17:23)
[2023-06-02] MEDS: levETIRAcetam 500 MG/5 ML LIQUID UDC GT SCH ×2 (08:51→21:34)
[2023-06-02] MEDS: ACIDOPHILUS/BULGARICUS CHEW TAB GT SCH ×2 (08:51→21:34)
[2023-06-02] MEDS: REMEDY ESSENTIAL ZINC PASTE 113 GM TP SCH ×4 (08:52→21:35)
[2023-06-02] MEDS: METOPROLOL TARTRATE 75 MG GT SCH ×2 (08:55→21:35)
[2023-06-02] MEDS: HYDROGEN PEROXIDE 3% 118 ML BOTTLE TP SCH ×2 (09:00→21:11)
[2023-06-02] MEDS: JEVITY 1.2 1000 ML LIQUID GT PRN (12:08)
[2023-06-02] MEDS: ASCORBIC ACID 500 MG TABLET GT SCH (21:35)
[2023-06-03] VITALS (10 sets, daily range): TEMP 98–99.2; O2SAT 97–99
[2023-06-03] MEDS: IPRATROPIUM BROMIDE 0.5 MG/2.5 ML NEBU NEB SCH ×4 (02:09→20:00)
[2023-06-03] MEDS: ALBUTEROL SULFATE 2.5 MG/3 ML NEBU NEB SCH ×4 (02:10→20:00)
[2023-06-03] MEDS: PANTOPRAZOLE ORAL SUSPENSION 40 MG SUSPDR.PKT GT SCH ×2 (05:51→17:07)
[2023-06-03] MEDS: HYDROGEN PEROXIDE 3% 118 ML BOTTLE TP SCH ×2 (07:23→21:51)
[2023-06-03] MEDS: REMEDY ESSENTIAL ZINC PASTE 113 GM TP SCH ×4 (09:00→21:36)
[2023-06-03] MEDS: KETOCONAZOLE 2% SHAMPOO 120 ML BOTTLE TP SCH (09:00)
[2023-06-03] MEDS: ACIDOPHILUS/BULGARICUS CHEW TAB GT SCH ×2 (09:13→21:35)
[2023-06-03] MEDS: levETIRAcetam 500 MG/5 ML LIQUID UDC GT SCH ×2 (09:25→21:35)
[2023-06-03] MEDS: METOPROLOL TARTRATE 75 MG GT SCH ×2 (09:26→21:35)
[2023-06-03] MEDS: ASCORBIC ACID 500 MG TABLET GT SCH (21:36)
[2023-06-04] VITALS (11 sets, daily range): TEMP 98.2–98.6; O2SAT 96–99
[2023-06-04] MEDS: ALBUTEROL SULFATE 2.5 MG/3 ML NEBU NEB SCH ×4 (01:24→20:17)
[2023-06-04] MEDS: IPRATROPIUM BROMIDE 0.5 MG/2.5 ML NEBU NEB SCH ×4 (01:24→20:17)
[2023-06-04] MEDS: PANTOPRAZOLE ORAL SUSPENSION 40 MG SUSPDR.PKT GT SCH ×2 (05:47→17:58)
[2023-06-04] MEDS: ACIDOPHILUS/BULGARICUS CHEW TAB GT SCH ×2 (08:01→21:00)
[2023-06-04] MEDS: METOPROLOL TARTRATE 75 MG GT SCH ×2 (08:02→21:00)
[2023-06-04] MEDS: REMEDY ESSENTIAL ZINC PASTE 113 GM TP SCH ×4 (08:04→21:00)
[2023-06-04] MEDS: levETIRAcetam 500 MG/5 ML LIQUID UDC GT SCH ×2 (08:04→21:00)
[2023-06-04] MEDS: HYDROGEN PEROXIDE 3% 118 ML BOTTLE TP SCH ×2 (09:16→20:17)
[2023-06-04] MEDS: JEVITY 1.2 1000 ML LIQUID GT PRN (15:23)
[2023-06-04] MEDS: ASCORBIC ACID 500 MG TABLET GT SCH (21:00)
[2023-06-05] VITALS (10 sets, daily range): TEMP 98.5–99.2; O2SAT 96–99
[2023-06-05] MEDS: IPRATROPIUM BROMIDE 0.5 MG/2.5 ML NEBU NEB SCH ×4 (01:53→19:54)
[2023-06-05] MEDS: ALBUTEROL SULFATE 2.5 MG/3 ML NEBU NEB SCH ×4 (01:53→19:54)
[2023-06-05] MEDS: PANTOPRAZOLE ORAL SUSPENSION 40 MG SUSPDR.PKT GT SCH ×2 (05:37→18:50)
[2023-06-05] MEDS: ACIDOPHILUS/BULGARICUS CHEW TAB GT SCH ×2 (08:17→21:35)
[2023-06-05] MEDS: levETIRAcetam 500 MG/5 ML LIQUID UDC GT SCH ×2 (08:18→21:35)
[2023-06-05] MEDS: METOPROLOL TARTRATE 75 MG GT SCH ×2 (08:20→21:36)
[2023-06-05] MEDS: REMEDY ESSENTIAL ZINC PASTE 113 GM TP SCH ×4 (08:20→21:36)
[2023-06-05] MEDS: HYDROGEN PEROXIDE 3% 118 ML BOTTLE TP SCH ×2 (09:37→19:54)
[2023-06-05] MEDS: JEVITY 1.2 1000 ML LIQUID GT PRN (15:15)
[2023-06-05] MEDS: ASCORBIC ACID 500 MG TABLET GT SCH (21:36)
[2023-06-06] VITALS (10 sets, daily range): TEMP 97.8–97.9; O2SAT 96–99
[2023-06-06] MEDS: ALBUTEROL SULFATE 2.5 MG/3 ML NEBU NEB SCH ×4 (02:00→19:16)
[2023-06-06] MEDS: IPRATROPIUM BROMIDE 0.5 MG/2.5 ML NEBU NEB SCH ×4 (02:00→19:16)
[2023-06-06] MEDS: PANTOPRAZOLE ORAL SUSPENSION 40 MG SUSPDR.PKT GT SCH ×2 (06:39→17:26)
[2023-06-06] MEDS: ACIDOPHILUS/BULGARICUS CHEW TAB GT SCH ×2 (08:41→21:36)
[2023-06-06] MEDS: levETIRAcetam 500 MG/5 ML LIQUID UDC GT SCH ×2 (08:41→21:37)
[2023-06-06] MEDS: REMEDY ESSENTIAL ZINC PASTE 113 GM TP SCH ×4 (08:43→21:38)
[2023-06-06] MEDS: METOPROLOL TARTRATE 75 MG GT SCH ×2 (08:43→21:00)
[2023-06-06] MEDS: HYDROGEN PEROXIDE 3% 118 ML BOTTLE TP SCH ×2 (09:53→19:17)
[2023-06-06] MEDS: JEVITY 1.2 1000 ML LIQUID GT PRN (12:24)
[2023-06-06] MEDS: ASCORBIC ACID 500 MG TABLET GT SCH (21:38)
[2023-06-07] VITALS (13 sets, daily range): TEMP 98.3–98.9; O2SAT 96–99
[2023-06-07] MEDS: IPRATROPIUM BROMIDE 0.5 MG/2.5 ML NEBU NEB SCH ×4 (00:37→19:20)
[2023-06-07] MEDS: ALBUTEROL SULFATE 2.5 MG/3 ML NEBU NEB SCH ×4 (00:37→19:20)
[2023-06-07] MEDS: PANTOPRAZOLE ORAL SUSPENSION 40 MG SUSPDR.PKT GT SCH ×2 (05:41→17:19)
[2023-06-07 05:57] LABS: BASOPHILS # (AUTO) 0.1 K/UL (0.0-0.2); BASOPHILS % (AUTO) 0.7 % (0.0-2.0); EOSINOPHILS # (AUTO) 0.4 K/uL (0.0-0.7); EOSINOPHILS % (AUTO) 3.3 % (0.0-7.0); HEMATOCRIT 36.5 % (36.7-47.1); HEMOGLOBIN 12.3 g/dL (12.5-16.3); LYMPHOCYTES # (AUTO) 1.7 K/uL (0.8-4.8); LYMPHOCYTES % (AUTO) 14.9 % (20.5-51.5); MEAN CORPUSCULAR HEMOGLOBIN 28.5 uug (23.8-33.4); MEAN CORPUSCULAR HGB CONC 34 g/dL (32.5-36.3); MEAN CORPUSCULAR VOLUME 84.7 fL (73.0-96.2); MONOCYTES % (AUTO) 8.8 % (0.0-11.0); NEUTROPHILS # (AUTO) 8.3 K/uL (1.8-8.9); NEUTROPHILS % (AUTO) 72.3 % (38.5-71.5); PLATELET COUNT (AUTO) 479 K/uL (152-348); RED BLOOD CELL COUNT(AUTO) 4.32 MIL/uL (4.06-5.63); WHITE BLOOD COUNT (AUTO) 11.4 K/uL (3.6-10.2)
[2023-06-07 05:58] LABS: DIFFERENTIAL COMMENT 1
[2023-06-07 06:07] LABS: ALBUMIN 2.7 g/dL (3.4-5.0); BILIRUBIN,TOTAL 0.2 mg/dL (0.2-1.0); CREATININE 0.7 mg/dL (0.6-1.3); POTASSIUM 3.9 mmol/L (3.5-5.1)
[2023-06-07] MEDS: ACIDOPHILUS/BULGARICUS CHEW TAB GT SCH ×2 (09:21→21:34)
[2023-06-07] MEDS: levETIRAcetam 500 MG/5 ML LIQUID UDC GT SCH ×2 (09:21→21:34)
[2023-06-07] MEDS: KETOCONAZOLE 2% SHAMPOO 120 ML BOTTLE TP SCH (09:22)
[2023-06-07] MEDS: METOPROLOL TARTRATE 75 MG GT SCH ×2 (09:22→21:35)
[2023-06-07] MEDS: REMEDY ESSENTIAL ZINC PASTE 113 GM TP SCH ×4 (09:22→21:35)
[2023-06-07] MEDS: HYDROGEN PEROXIDE 3% 118 ML BOTTLE TP SCH ×2 (09:24→19:21)
[2023-06-07] MEDS: ASCORBIC ACID 500 MG TABLET GT SCH (21:35)
[2023-06-08] VITALS (10 sets, daily range): TEMP 97.7–98.5; O2SAT 96–99
[2023-06-08] MEDS: IPRATROPIUM BROMIDE 0.5 MG/2.5 ML NEBU NEB SCH ×4 (01:57→19:30)
[2023-06-08] MEDS: ALBUTEROL SULFATE 2.5 MG/3 ML NEBU NEB SCH ×4 (01:57→19:30)
[2023-06-08] MEDS: JEVITY 1.2 1000 ML LIQUID GT PRN (02:51)
[2023-06-08] MEDS: PANTOPRAZOLE ORAL SUSPENSION 40 MG SUSPDR.PKT GT SCH ×2 (05:20→18:10)
[2023-06-08] MEDS: levETIRAcetam 500 MG/5 ML LIQUID UDC GT SCH ×2 (08:26→21:50)
[2023-06-08] MEDS: ACIDOPHILUS/BULGARICUS CHEW TAB GT SCH ×2 (08:26→21:50)
[2023-06-08] MEDS: REMEDY ESSENTIAL ZINC PASTE 113 GM TP SCH ×4 (08:27→21:52)
[2023-06-08] MEDS: METOPROLOL TARTRATE 75 MG GT SCH ×2 (08:27→21:51)
[2023-06-08] MEDS: HYDROGEN PEROXIDE 3% 118 ML BOTTLE TP SCH ×2 (08:29→20:59)
[2023-06-08] MEDS: ASCORBIC ACID 500 MG TABLET GT SCH (21:51)
[2023-06-09] VITALS (10 sets, daily range): TEMP 98.2–98.8; O2SAT 97–99
[2023-06-09] MEDS: ALBUTEROL SULFATE 2.5 MG/3 ML NEBU NEB SCH ×4 (01:51→19:06)
[2023-06-09] MEDS: IPRATROPIUM BROMIDE 0.5 MG/2.5 ML NEBU NEB SCH ×4 (01:51→19:06)
[2023-06-09] MEDS: JEVITY 1.2 1000 ML LIQUID GT PRN ×2 (02:41→21:36)
[2023-06-09] MEDS: PANTOPRAZOLE ORAL SUSPENSION 40 MG SUSPDR.PKT GT SCH ×2 (05:15→17:34)
[2023-06-09] MEDS: HYDROGEN PEROXIDE 3% 118 ML BOTTLE TP SCH ×2 (09:00→21:05)
[2023-06-09] MEDS: ACIDOPHILUS/BULGARICUS CHEW TAB GT SCH ×2 (09:31→21:23)
[2023-06-09] MEDS: levETIRAcetam 500 MG/5 ML LIQUID UDC GT SCH ×2 (09:32→21:24)
[2023-06-09] MEDS: REMEDY ESSENTIAL ZINC PASTE 113 GM TP SCH ×4 (09:33→21:24)
[2023-06-09] MEDS: METOPROLOL TARTRATE 75 MG GT SCH ×2 (09:34→21:24)
[2023-06-09] MEDS: ASCORBIC ACID 500 MG TABLET GT SCH (21:24)
[2023-06-10] VITALS (10 sets, daily range): TEMP 98.6–98.7; O2SAT 98–99
[2023-06-10] MEDS: ALBUTEROL SULFATE 2.5 MG/3 ML NEBU NEB SCH ×4 (01:09→20:10)
[2023-06-10] MEDS: IPRATROPIUM BROMIDE 0.5 MG/2.5 ML NEBU NEB SCH ×4 (01:09→20:10)
[2023-06-10] MEDS: PANTOPRAZOLE ORAL SUSPENSION 40 MG SUSPDR.PKT GT SCH ×2 (05:35→17:20)
[2023-06-10] MEDS: levETIRAcetam 500 MG/5 ML LIQUID UDC GT SCH ×2 (08:02→21:44)
[2023-06-10] MEDS: ACIDOPHILUS/BULGARICUS CHEW TAB GT SCH ×2 (08:02→21:44)
[2023-06-10] MEDS: METOPROLOL TARTRATE 75 MG GT SCH ×2 (08:03→21:44)
[2023-06-10] MEDS: KETOCONAZOLE 2% SHAMPOO 120 ML BOTTLE TP SCH (08:03)
[2023-06-10] MEDS: REMEDY ESSENTIAL ZINC PASTE 113 GM TP SCH ×4 (08:03→21:44)
[2023-06-10] MEDS: HYDROGEN PEROXIDE 3% 118 ML BOTTLE TP SCH ×2 (08:07→20:10)
[2023-06-10] MEDS: JEVITY 1.2 1000 ML LIQUID GT PRN (16:39)
[2023-06-10] MEDS: ASCORBIC ACID 500 MG TABLET GT SCH (21:44)
[2023-06-11] VITALS (10 sets, daily range): TEMP 97.7–98; O2SAT 96–99
[2023-06-11] MEDS: IPRATROPIUM BROMIDE 0.5 MG/2.5 ML NEBU NEB SCH ×4 (01:45→19:15)
[2023-06-11] MEDS: ALBUTEROL SULFATE 2.5 MG/3 ML NEBU NEB SCH ×4 (01:45→19:15)
[2023-06-11] MEDS: PANTOPRAZOLE ORAL SUSPENSION 40 MG SUSPDR.PKT GT SCH ×2 (05:48→17:55)
[2023-06-11] MEDS: ACIDOPHILUS/BULGARICUS CHEW TAB GT SCH ×2 (08:54→21:51)
[2023-06-11] MEDS: levETIRAcetam 500 MG/5 ML LIQUID UDC GT SCH ×2 (08:55→21:51)
[2023-06-11] MEDS: METOPROLOL TARTRATE 75 MG GT SCH ×2 (08:56→21:52)
[2023-06-11] MEDS: REMEDY ESSENTIAL ZINC PASTE 113 GM TP SCH ×4 (08:56→21:52)
[2023-06-11] MEDS: HYDROGEN PEROXIDE 3% 118 ML BOTTLE TP SCH ×2 (09:00→19:15)
[2023-06-11] MEDS: JEVITY 1.2 1000 ML LIQUID GT PRN (11:31)
[2023-06-11] MEDS: ASCORBIC ACID 500 MG TABLET GT SCH (21:52)
[2023-06-12] VITALS (10 sets, daily range): TEMP 98.4–98.5; O2SAT 97–99
[2023-06-12] MEDS: IPRATROPIUM BROMIDE 0.5 MG/2.5 ML NEBU NEB SCH ×4 (01:26→19:11)
[2023-06-12] MEDS: ALBUTEROL SULFATE 2.5 MG/3 ML NEBU NEB SCH ×4 (01:27→19:11)
[2023-06-12] MEDS: PANTOPRAZOLE ORAL SUSPENSION 40 MG SUSPDR.PKT GT SCH ×2 (05:13→18:37)
[2023-06-12] MEDS: HYDROGEN PEROXIDE 3% 118 ML BOTTLE TP SCH ×2 (08:36→19:11)
[2023-06-12] MEDS: ACIDOPHILUS/BULGARICUS CHEW TAB GT SCH ×2 (08:56→21:58)
[2023-06-12] MEDS: levETIRAcetam 500 MG/5 ML LIQUID UDC GT SCH ×2 (08:56→21:58)
[2023-06-12] MEDS: REMEDY ESSENTIAL ZINC PASTE 113 GM TP SCH ×4 (09:03→21:58)
[2023-06-12] MEDS: METOPROLOL TARTRATE 75 MG GT SCH ×2 (09:05→21:58)
[2023-06-12] MEDS: JEVITY 1.2 1000 ML LIQUID GT PRN (13:18)
[2023-06-12] MEDS: ASCORBIC ACID 500 MG TABLET GT SCH (21:58)
[2023-06-13] VITALS (9 sets, daily range): TEMP 98.6; O2SAT 98–99
[2023-06-13] MEDS: ALBUTEROL SULFATE 2.5 MG/3 ML NEBU NEB SCH ×4 (01:02→19:30)
[2023-06-13] MEDS: IPRATROPIUM BROMIDE 0.5 MG/2.5 ML NEBU NEB SCH ×4 (01:02→19:30)
[2023-06-13] MEDS: PANTOPRAZOLE ORAL SUSPENSION 40 MG SUSPDR.PKT GT SCH ×2 (06:06→17:44)
[2023-06-13] MEDS: ACIDOPHILUS/BULGARICUS CHEW TAB GT SCH ×2 (08:22→21:23)
[2023-06-13] MEDS: levETIRAcetam 500 MG/5 ML LIQUID UDC GT SCH ×2 (08:22→21:25)
[2023-06-13] MEDS: REMEDY ESSENTIAL ZINC PASTE 113 GM TP SCH ×4 (08:25→21:24)
[2023-06-13] MEDS: METOPROLOL TARTRATE 75 MG GT SCH ×2 (08:25→21:00)
[2023-06-13] MEDS: HYDROGEN PEROXIDE 3% 118 ML BOTTLE TP SCH ×2 (09:57→21:14)
[2023-06-13] MEDS: ASCORBIC ACID 500 MG TABLET GT SCH (21:24)
[2023-06-14] VITALS (10 sets, daily range): TEMP 98–98.2; O2SAT 98–99
[2023-06-14] MEDS: JEVITY 1.2 1000 ML LIQUID GT PRN (01:40)
[2023-06-14] MEDS: ALBUTEROL SULFATE 2.5 MG/3 ML NEBU NEB SCH ×4 (01:45→19:12)
[2023-06-14] MEDS: IPRATROPIUM BROMIDE 0.5 MG/2.5 ML NEBU NEB SCH ×4 (01:45→19:12)
[2023-06-14] MEDS: PANTOPRAZOLE ORAL SUSPENSION 40 MG SUSPDR.PKT GT SCH ×2 (05:12→18:21)
[2023-06-14] MEDS: HYDROGEN PEROXIDE 3% 118 ML BOTTLE TP SCH ×2 (08:49→19:12)
[2023-06-14] MEDS: ACIDOPHILUS/BULGARICUS CHEW TAB GT SCH ×2 (09:45→20:55)
[2023-06-14] MEDS: levETIRAcetam 500 MG/5 ML LIQUID UDC GT SCH ×2 (09:46→20:57)
[2023-06-14] MEDS: KETOCONAZOLE 2% SHAMPOO 120 ML BOTTLE TP SCH (09:50)
[2023-06-14] MEDS: REMEDY ESSENTIAL ZINC PASTE 113 GM TP SCH ×4 (09:51→20:57)
[2023-06-14] MEDS: METOPROLOL TARTRATE 75 MG GT SCH ×2 (09:58→20:56)
[2023-06-14] MEDS: ACETAMINOPHEN 650 MG/20 ML UDC- SA PATIENTS-PAIN ONLY GT PRN (09:59)
[2023-06-14] MEDS: ASCORBIC ACID 500 MG TABLET GT SCH (20:55)
[2023-06-15] VITALS (10 sets, daily range): TEMP 98–98.3; O2SAT 97–99
[2023-06-15] MEDS: IPRATROPIUM BROMIDE 0.5 MG/2.5 ML NEBU NEB SCH ×4 (02:08→19:09)
[2023-06-15] MEDS: ALBUTEROL SULFATE 2.5 MG/3 ML NEBU NEB SCH ×4 (02:08→19:09)
[2023-06-15] MEDS: JEVITY 1.2 1000 ML LIQUID GT PRN ×2 (02:43→21:17)
[2023-06-15] MEDS: PANTOPRAZOLE ORAL SUSPENSION 40 MG SUSPDR.PKT GT SCH ×2 (05:37→17:50)
[2023-06-15] MEDS: HYDROGEN PEROXIDE 3% 118 ML BOTTLE TP SCH ×2 (07:17→19:09)
[2023-06-15] MEDS: METOPROLOL TARTRATE 75 MG GT SCH ×2 (09:00→21:01)
[2023-06-15] MEDS: levETIRAcetam 500 MG/5 ML LIQUID UDC GT SCH ×2 (09:00→21:00)
[2023-06-15] MEDS: ACIDOPHILUS/BULGARICUS CHEW TAB GT SCH ×2 (09:00→20:59)
[2023-06-15] MEDS: REMEDY ESSENTIAL ZINC PASTE 113 GM TP SCH ×4 (09:00→21:02)
[2023-06-15] MEDS: ASCORBIC ACID 500 MG TABLET GT SCH (21:02)
[2023-06-16] VITALS (10 sets, daily range): TEMP 97.8–98.5; O2SAT 97–99
[2023-06-16] MEDS: ALBUTEROL SULFATE 2.5 MG/3 ML NEBU NEB SCH ×4 (00:41→19:26)
[2023-06-16] MEDS: IPRATROPIUM BROMIDE 0.5 MG/2.5 ML NEBU NEB SCH ×4 (00:41→19:26)
[2023-06-16] MEDS: PANTOPRAZOLE ORAL SUSPENSION 40 MG SUSPDR.PKT GT SCH ×2 (05:20→17:01)
[2023-06-16] MEDS: ACIDOPHILUS/BULGARICUS CHEW TAB GT SCH ×2 (08:13→21:28)
[2023-06-16] MEDS: REMEDY ESSENTIAL ZINC PASTE 113 GM TP SCH ×4 (08:15→21:29)
[2023-06-16] MEDS: levETIRAcetam 500 MG/5 ML LIQUID UDC GT SCH ×2 (08:15→21:28)
[2023-06-16] MEDS: METOPROLOL TARTRATE 75 MG GT SCH ×2 (08:22→21:29)
[2023-06-16] MEDS: HYDROGEN PEROXIDE 3% 118 ML BOTTLE TP SCH ×2 (09:22→19:26)
[2023-06-16] MEDS: JEVITY 1.2 1000 ML LIQUID GT PRN (17:01)
[2023-06-16] MEDS: ASCORBIC ACID 500 MG TABLET GT SCH (21:29)
[2023-06-17] VITALS (10 sets, daily range): TEMP 97.7–98.7; O2SAT 98–99
[2023-06-17] MEDS: IPRATROPIUM BROMIDE 0.5 MG/2.5 ML NEBU NEB SCH ×4 (00:40→19:12)
[2023-06-17] MEDS: ALBUTEROL SULFATE 2.5 MG/3 ML NEBU NEB SCH ×4 (00:40→19:12)
[2023-06-17] MEDS: PANTOPRAZOLE ORAL SUSPENSION 40 MG SUSPDR.PKT GT SCH ×2 (06:02→17:01)
[2023-06-17] MEDS: HYDROGEN PEROXIDE 3% 118 ML BOTTLE TP SCH ×2 (07:33→19:12)
[2023-06-17] MEDS: ACIDOPHILUS/BULGARICUS CHEW TAB GT SCH ×2 (09:12→21:00)
[2023-06-17] MEDS: levETIRAcetam 500 MG/5 ML LIQUID UDC GT SCH ×2 (09:14→21:00)
[2023-06-17] MEDS: METOPROLOL TARTRATE 75 MG GT SCH ×2 (09:17→21:00)
[2023-06-17] MEDS: KETOCONAZOLE 2% SHAMPOO 120 ML BOTTLE TP SCH (09:18)
[2023-06-17] MEDS: REMEDY ESSENTIAL ZINC PASTE 113 GM TP SCH ×4 (09:18→21:00)
[2023-06-17] MEDS: JEVITY 1.2 1000 ML LIQUID GT PRN (17:32)
[2023-06-17] MEDS: ASCORBIC ACID 500 MG TABLET GT SCH (21:00)
[2023-06-18] VITALS (9 sets, daily range): TEMP 97.7–97.8; O2SAT 96–99
[2023-06-18] MEDS: IPRATROPIUM BROMIDE 0.5 MG/2.5 ML NEBU NEB SCH ×4 (00:43→19:05)
[2023-06-18] MEDS: ALBUTEROL SULFATE 2.5 MG/3 ML NEBU NEB SCH ×4 (00:43→19:05)
[2023-06-18] MEDS: PANTOPRAZOLE ORAL SUSPENSION 40 MG SUSPDR.PKT GT SCH ×2 (05:51→17:51)
[2023-06-18] MEDS: HYDROGEN PEROXIDE 3% 118 ML BOTTLE TP SCH ×2 (07:26→21:15)
[2023-06-18] MEDS: ACIDOPHILUS/BULGARICUS CHEW TAB GT SCH ×2 (09:02→21:52)
[2023-06-18] MEDS: levETIRAcetam 500 MG/5 ML LIQUID UDC GT SCH ×2 (09:02→21:52)
[2023-06-18] MEDS: REMEDY ESSENTIAL ZINC PASTE 113 GM TP SCH ×4 (09:06→21:53)
[2023-06-18] MEDS: METOPROLOL TARTRATE 75 MG GT SCH ×2 (09:06→21:54)
[2023-06-18] MEDS: JEVITY 1.2 1000 ML LIQUID GT PRN (14:30)
[2023-06-18] MEDS: ASCORBIC ACID 500 MG TABLET GT SCH (21:53)
[2023-06-19] VITALS (10 sets, daily range): TEMP 98.2; O2SAT 9–99
[2023-06-19] MEDS: IPRATROPIUM BROMIDE 0.5 MG/2.5 ML NEBU NEB SCH ×4 (01:14→19:50)
[2023-06-19] MEDS: ALBUTEROL SULFATE 2.5 MG/3 ML NEBU NEB SCH ×4 (01:14→19:50)
[2023-06-19] MEDS: PANTOPRAZOLE ORAL SUSPENSION 40 MG SUSPDR.PKT GT SCH ×2 (06:43→17:46)
[2023-06-19] MEDS: HYDROGEN PEROXIDE 3% 118 ML BOTTLE TP SCH ×2 (08:17→21:35)
[2023-06-19] MEDS: ACIDOPHILUS/BULGARICUS CHEW TAB GT SCH ×2 (09:18→21:45)
[2023-06-19] MEDS: levETIRAcetam 500 MG/5 ML LIQUID UDC GT SCH ×2 (09:18→21:45)
[2023-06-19] MEDS: REMEDY ESSENTIAL ZINC PASTE 113 GM TP SCH ×4 (09:19→21:46)
[2023-06-19] MEDS: METOPROLOL TARTRATE 75 MG GT SCH ×2 (09:19→21:46)
[2023-06-19] MEDS: JEVITY 1.2 1000 ML LIQUID GT PRN (12:41)
[2023-06-19] MEDS: ASCORBIC ACID 500 MG TABLET GT SCH (21:46)
[2023-06-19] MEDS: ACETAMINOPHEN 650 MG/20 ML UDC- SA PATIENTS-PAIN ONLY GT PRN (21:46)
[2023-06-20] VITALS (9 sets, daily range): TEMP 97.8–98.5; O2SAT 96–99
[2023-06-20] MEDS: IPRATROPIUM BROMIDE 0.5 MG/2.5 ML NEBU NEB SCH ×4 (01:47→19:10)
[2023-06-20] MEDS: ALBUTEROL SULFATE 2.5 MG/3 ML NEBU NEB SCH ×4 (01:47→19:10)
[2023-06-20] MEDS: JEVITY 1.2 1000 ML LIQUID GT PRN (06:43)
[2023-06-20] MEDS: PANTOPRAZOLE ORAL SUSPENSION 40 MG SUSPDR.PKT GT SCH ×2 (06:43→18:31)
[2023-06-20] MEDS: HYDROGEN PEROXIDE 3% 118 ML BOTTLE TP SCH ×2 (09:18→19:11)
[2023-06-20] MEDS: levETIRAcetam 500 MG/5 ML LIQUID UDC GT SCH ×2 (09:29→21:33)
[2023-06-20] MEDS: ACIDOPHILUS/BULGARICUS CHEW TAB GT SCH ×2 (09:29→21:33)
[2023-06-20] MEDS: METOPROLOL TARTRATE 75 MG GT SCH ×2 (09:31→21:00)
[2023-06-20] MEDS: REMEDY ESSENTIAL ZINC PASTE 113 GM TP SCH ×4 (09:32→21:34)
[2023-06-20] MEDS ORDERED: TUBERCULIN,PURIF.PROT.DERIV. 5 TU/0.1 ML TEST ID SCH (12:00)
[2023-06-20] MEDS: ACETAMINOPHEN 650 MG/20 ML UDC- SA PATIENTS-PAIN ONLY GT PRN (21:34)
[2023-06-20] MEDS: ASCORBIC ACID 500 MG TABLET GT SCH (21:34)
[2023-06-21] VITALS (10 sets, daily range): TEMP 97.8–97.9; O2SAT 96–99
[2023-06-21] MEDS: ALBUTEROL SULFATE 2.5 MG/3 ML NEBU NEB SCH ×4 (00:48→19:40)
[2023-06-21] MEDS: IPRATROPIUM BROMIDE 0.5 MG/2.5 ML NEBU NEB SCH ×4 (00:48→19:40)
[2023-06-21] MEDS: PANTOPRAZOLE ORAL SUSPENSION 40 MG SUSPDR.PKT GT SCH ×2 (06:28→18:14)
[2023-06-21] MEDS: ACIDOPHILUS/BULGARICUS CHEW TAB GT SCH ×2 (09:05→21:47)
[2023-06-21] MEDS: levETIRAcetam 500 MG/5 ML LIQUID UDC GT SCH ×2 (09:06→21:47)
[2023-06-21] MEDS: METOPROLOL TARTRATE 75 MG GT SCH ×2 (09:07→21:48)
[2023-06-21] MEDS: REMEDY ESSENTIAL ZINC PASTE 113 GM TP SCH ×4 (09:07→21:48)
[2023-06-21] MEDS: KETOCONAZOLE 2% SHAMPOO 120 ML BOTTLE TP SCH (09:07)
[2023-06-21] MEDS: HYDROGEN PEROXIDE 3% 118 ML BOTTLE TP SCH ×2 (09:09→21:16)
[2023-06-21] MEDS ORDERED: KETOCONAZOLE 2% SHAMPOO 120 ML BOTTLE TP PRN (12:30)
[2023-06-21] MEDS: ASCORBIC ACID 500 MG TABLET GT SCH (21:48)
[2023-06-22] VITALS (10 sets, daily range): TEMP 98–98.8; O2SAT 96–99
[2023-06-22] MEDS: ALBUTEROL SULFATE 2.5 MG/3 ML NEBU NEB SCH ×4 (00:50→20:10)
[2023-06-22] MEDS: IPRATROPIUM BROMIDE 0.5 MG/2.5 ML NEBU NEB SCH ×4 (00:50→20:10)
[2023-06-22] MEDS: JEVITY 1.2 1000 ML LIQUID GT PRN (05:52)
[2023-06-22] MEDS: PANTOPRAZOLE ORAL SUSPENSION 40 MG SUSPDR.PKT GT SCH ×2 (05:52→17:45)
[2023-06-22] MEDS: HYDROGEN PEROXIDE 3% 118 ML BOTTLE TP SCH ×2 (07:15→21:00)
[2023-06-22] MEDS: KETOCONAZOLE 2% CREAM 30 GM TUBE TP SCH ×2 (09:00→15:21)
[2023-06-22] MEDS: REMEDY ESSENTIAL ZINC PASTE 113 GM TP SCH ×4 (09:00→21:56)
[2023-06-22] MEDS: METOPROLOL TARTRATE 75 MG GT SCH ×2 (09:00→21:56)
[2023-06-22] MEDS: levETIRAcetam 500 MG/5 ML LIQUID UDC GT SCH ×2 (09:00→21:55)
[2023-06-22] MEDS: ACIDOPHILUS/BULGARICUS CHEW TAB GT SCH ×2 (09:00→21:55)
[2023-06-22] MEDS ORDERED: TUBERCULIN,PURIF.PROT.DERIV. 5 TU/0.1 ML TEST ID ONE (14:00)
[2023-06-22] MEDS: ASCORBIC ACID 500 MG TABLET GT SCH (21:56)
[2023-06-23] VITALS (10 sets, daily range): TEMP 98.4; O2SAT 96–99
[2023-06-23] MEDS: IPRATROPIUM BROMIDE 0.5 MG/2.5 ML NEBU NEB SCH ×4 (01:00→19:05)
[2023-06-23] MEDS: ALBUTEROL SULFATE 2.5 MG/3 ML NEBU NEB SCH ×4 (01:00→19:05)
[2023-06-23] MEDS: JEVITY 1.2 1000 ML LIQUID GT PRN (01:29)
[2023-06-23] MEDS: PANTOPRAZOLE ORAL SUSPENSION 40 MG SUSPDR.PKT GT SCH ×2 (05:27→17:55)
[2023-06-23] MEDS: levETIRAcetam 500 MG/5 ML LIQUID UDC GT SCH ×2 (09:12→21:24)
[2023-06-23] MEDS: ACIDOPHILUS/BULGARICUS CHEW TAB GT SCH ×2 (09:12→21:24)
[2023-06-23] MEDS: REMEDY ESSENTIAL ZINC PASTE 113 GM TP SCH ×4 (09:13→21:25)
[2023-06-23] MEDS: METOPROLOL TARTRATE 75 MG GT SCH ×2 (09:13→21:00)
[2023-06-23] MEDS: HYDROGEN PEROXIDE 3% 118 ML BOTTLE TP SCH ×2 (09:36→21:01)
[2023-06-23] MEDS: ASCORBIC ACID 500 MG TABLET GT SCH (21:25)
[2023-06-24] VITALS (8 sets, daily range): TEMP 98.3–98.8; O2SAT 96–99
[2023-06-24] MEDS: JEVITY 1.2 1000 ML LIQUID GT PRN (03:00)
[2023-06-24] MEDS: PANTOPRAZOLE ORAL SUSPENSION 40 MG SUSPDR.PKT GT SCH ×2 (06:07→17:45)
[2023-06-24] MEDS: ALBUTEROL SULFATE 2.5 MG/3 ML NEBU NEB SCH ×3 (07:35→19:46)
[2023-06-24] MEDS: IPRATROPIUM BROMIDE 0.5 MG/2.5 ML NEBU NEB SCH ×3 (07:35→19:46)
[2023-06-24] MEDS: ACIDOPHILUS/BULGARICUS CHEW TAB GT SCH ×2 (09:32→20:14)
[2023-06-24] MEDS: levETIRAcetam 500 MG/5 ML LIQUID UDC GT SCH ×2 (09:32→20:15)
[2023-06-24] MEDS: KETOCONAZOLE 2% CREAM 30 GM TUBE TP SCH (09:35)
[2023-06-24] MEDS: METOPROLOL TARTRATE 75 MG GT SCH ×2 (09:35→20:15)
[2023-06-24] MEDS: REMEDY ESSENTIAL ZINC PASTE 113 GM TP SCH ×4 (09:36→20:16)
[2023-06-24] MEDS: HYDROGEN PEROXIDE 3% 118 ML BOTTLE TP SCH ×2 (10:00→20:16)
[2023-06-24] MEDS: ASCORBIC ACID 500 MG TABLET GT SCH (20:15)
[2023-06-25] VITALS (10 sets, daily range): TEMP 97.1–99.3; O2SAT 96–99
[2023-06-25] MEDS: JEVITY 1.2 1000 ML LIQUID GT PRN (00:45)
[2023-06-25] MEDS: IPRATROPIUM BROMIDE 0.5 MG/2.5 ML NEBU NEB SCH ×4 (01:06→20:13)
[2023-06-25] MEDS: ALBUTEROL SULFATE 2.5 MG/3 ML NEBU NEB SCH ×4 (01:06→20:13)
[2023-06-25] MEDS: PANTOPRAZOLE ORAL SUSPENSION 40 MG SUSPDR.PKT GT SCH ×2 (05:59→17:10)
[2023-06-25] MEDS: HYDROGEN PEROXIDE 3% 118 ML BOTTLE TP SCH ×2 (07:36→20:13)
[2023-06-25] MEDS: KETOCONAZOLE 2% CREAM 30 GM TUBE TP SCH (09:00)
[2023-06-25] MEDS: REMEDY ESSENTIAL ZINC PASTE 113 GM TP SCH ×4 (09:00→21:20)
[2023-06-25] MEDS: METOPROLOL TARTRATE 75 MG GT SCH ×2 (09:00→21:19)
[2023-06-25] MEDS: ACIDOPHILUS/BULGARICUS CHEW TAB GT SCH ×2 (09:00→21:18)
[2023-06-25] MEDS: levETIRAcetam 500 MG/5 ML LIQUID UDC GT SCH ×2 (09:00→21:18)
[2023-06-25] MEDS: ASCORBIC ACID 500 MG TABLET GT SCH (21:19)
[2023-06-26] VITALS (11 sets, daily range): TEMP 98.4–98.9; O2SAT 96–99
[2023-06-26] MEDS: ALBUTEROL SULFATE 2.5 MG/3 ML NEBU NEB SCH ×4 (01:30→19:18)
[2023-06-26] MEDS: IPRATROPIUM BROMIDE 0.5 MG/2.5 ML NEBU NEB SCH ×4 (01:30→19:18)
[2023-06-26] MEDS: PANTOPRAZOLE ORAL SUSPENSION 40 MG SUSPDR.PKT GT SCH ×2 (05:11→18:16)
[2023-06-26] MEDS: METOPROLOL TARTRATE 75 MG GT SCH ×2 (08:38→20:42)
[2023-06-26] MEDS: REMEDY ESSENTIAL ZINC PASTE 113 GM TP SCH ×4 (08:41→20:42)
[2023-06-26] MEDS: KETOCONAZOLE 2% CREAM 30 GM TUBE TP SCH (08:41)
[2023-06-26] MEDS: ACIDOPHILUS/BULGARICUS CHEW TAB GT SCH ×2 (08:41→20:41)
[2023-06-26] MEDS: levETIRAcetam 500 MG/5 ML LIQUID UDC GT SCH ×2 (08:41→20:41)
[2023-06-26] MEDS: HYDROGEN PEROXIDE 3% 118 ML BOTTLE TP SCH ×2 (09:06→19:18)
[2023-06-26] MEDS: JEVITY 1.2 1000 ML LIQUID GT PRN (19:27)
[2023-06-26] MEDS: ASCORBIC ACID 500 MG TABLET GT SCH (20:42)
[2023-06-27] VITALS (11 sets, daily range): TEMP 97.6–98.2; O2SAT 96–99
[2023-06-27] MEDS: ALBUTEROL SULFATE 2.5 MG/3 ML NEBU NEB SCH ×4 (00:59→19:20)
[2023-06-27] MEDS: IPRATROPIUM BROMIDE 0.5 MG/2.5 ML NEBU NEB SCH ×4 (00:59→19:20)
[2023-06-27] MEDS: PANTOPRAZOLE ORAL SUSPENSION 40 MG SUSPDR.PKT GT SCH ×2 (06:52→17:53)
[2023-06-27] MEDS: METOPROLOL TARTRATE 75 MG GT SCH ×2 (08:59→20:42)
[2023-06-27] MEDS: levETIRAcetam 500 MG/5 ML LIQUID UDC GT SCH ×2 (08:59→20:41)
[2023-06-27] MEDS: ACIDOPHILUS/BULGARICUS CHEW TAB GT SCH ×2 (08:59→20:41)
[2023-06-27] MEDS: KETOCONAZOLE 2% CREAM 30 GM TUBE TP SCH (08:59)
[2023-06-27] MEDS: REMEDY ESSENTIAL ZINC PASTE 113 GM TP SCH ×4 (08:59→20:43)
[2023-06-27] MEDS: HYDROGEN PEROXIDE 3% 118 ML BOTTLE TP SCH ×2 (09:00→19:20)
[2023-06-27] MEDS ORDERED: IOHEXOL 350 100 ML INFUS..BTL ONE (10:29)
[2023-06-27] MEDS ORDERED: SWABABLE VALVE TRANSFER SET EA MC ONE (10:29)
[2023-06-27] MEDS ORDERED: IV NORMAL SALINE 250 ML IV ONE (10:29)
[2023-06-27] MEDS: JEVITY 1.2 1000 ML LIQUID GT PRN (14:41)
[2023-06-27] MEDS: ASCORBIC ACID 500 MG TABLET GT SCH (20:43)
[2023-06-28] VITALS (10 sets, daily range): TEMP 98.5–98.6; O2SAT 96–99
[2023-06-28] MEDS: ALBUTEROL SULFATE 2.5 MG/3 ML NEBU NEB SCH ×4 (01:27→19:15)
[2023-06-28] MEDS: IPRATROPIUM BROMIDE 0.5 MG/2.5 ML NEBU NEB SCH ×4 (01:27→19:15)
[2023-06-28] MEDS: PANTOPRAZOLE ORAL SUSPENSION 40 MG SUSPDR.PKT GT SCH ×2 (05:16→18:00)
[2023-06-28] MEDS: ACIDOPHILUS/BULGARICUS CHEW TAB GT SCH ×2 (08:46→20:42)
[2023-06-28] MEDS: levETIRAcetam 500 MG/5 ML LIQUID UDC GT SCH ×2 (08:46→20:42)
[2023-06-28] MEDS: METOPROLOL TARTRATE 75 MG GT SCH ×2 (08:47→20:43)
[2023-06-28] MEDS: REMEDY ESSENTIAL ZINC PASTE 113 GM TP SCH ×4 (08:47→20:43)
[2023-06-28] MEDS: KETOCONAZOLE 2% CREAM 30 GM TUBE TP SCH (08:47)
[2023-06-28] MEDS: HYDROGEN PEROXIDE 3% 118 ML BOTTLE TP SCH ×2 (08:50→19:15)
[2023-06-28] MEDS: JEVITY 1.2 1000 ML LIQUID GT PRN (12:43)
[2023-06-28] MEDS: ASCORBIC ACID 500 MG TABLET GT SCH (20:43)
[2023-06-29] VITALS (10 sets, daily range): TEMP 98.4–98.5; O2SAT 96–99
[2023-06-29] MEDS: IPRATROPIUM BROMIDE 0.5 MG/2.5 ML NEBU NEB SCH ×4 (01:07→19:14)
[2023-06-29] MEDS: ALBUTEROL SULFATE 2.5 MG/3 ML NEBU NEB SCH ×4 (01:08→19:14)
[2023-06-29] MEDS: PANTOPRAZOLE ORAL SUSPENSION 40 MG SUSPDR.PKT GT SCH ×2 (05:02→17:30)
[2023-06-29] MEDS: HYDROGEN PEROXIDE 3% 118 ML BOTTLE TP SCH ×2 (09:00→19:14)
[2023-06-29] MEDS: METOPROLOL TARTRATE 75 MG GT SCH ×2 (09:08→20:46)
[2023-06-29] MEDS: KETOCONAZOLE 2% CREAM 30 GM TUBE TP SCH (09:08)
[2023-06-29] MEDS: KETOCONAZOLE 2% SHAMPOO 120 ML BOTTLE TP SCH (09:08)
[2023-06-29] MEDS: REMEDY ESSENTIAL ZINC PASTE 113 GM TP SCH ×4 (09:08→20:46)
[2023-06-29] MEDS: levETIRAcetam 500 MG/5 ML LIQUID UDC GT SCH ×2 (09:08→20:42)
[2023-06-29] MEDS: ACIDOPHILUS/BULGARICUS CHEW TAB GT SCH ×2 (09:08→20:42)
[2023-06-29] MEDS: ACETAMINOPHEN 650 MG/20 ML UDC- SA PATIENTS-PAIN ONLY GT PRN (09:09)
[2023-06-29] MEDS: JEVITY 1.2 1000 ML LIQUID GT PRN (10:02)
[2023-06-29] MEDS: ASCORBIC ACID 500 MG TABLET GT SCH (20:46)
[2023-06-30] VITALS (10 sets, daily range): TEMP 98.2–98.3; O2SAT 96–99
[2023-06-30] MEDS: ALBUTEROL SULFATE 2.5 MG/3 ML NEBU NEB SCH ×5 (00:30→21:25)
[2023-06-30] MEDS: IPRATROPIUM BROMIDE 0.5 MG/2.5 ML NEBU NEB SCH ×5 (00:30→21:24)
[2023-06-30] MEDS: JEVITY 1.2 1000 ML LIQUID GT PRN (03:24)
[2023-06-30] MEDS: PANTOPRAZOLE ORAL SUSPENSION 40 MG SUSPDR.PKT GT SCH ×2 (05:12→17:32)
[2023-06-30] MEDS: HYDROGEN PEROXIDE 3% 118 ML BOTTLE TP SCH ×2 (09:00→21:24)
[2023-06-30] MEDS: ACIDOPHILUS/BULGARICUS CHEW TAB GT SCH ×2 (09:09→21:01)
[2023-06-30] MEDS: levETIRAcetam 500 MG/5 ML LIQUID UDC GT SCH ×2 (09:10→21:01)
[2023-06-30] MEDS: REMEDY ESSENTIAL ZINC PASTE 113 GM TP SCH ×4 (09:11→21:02)
[2023-06-30] MEDS: KETOCONAZOLE 2% CREAM 30 GM TUBE TP SCH (09:11)
[2023-06-30] MEDS: METOPROLOL TARTRATE 75 MG GT SCH ×2 (09:14→21:02)
[2023-06-30] MEDS: ACETAMINOPHEN 650 MG/20 ML UDC- SA PATIENTS-PAIN ONLY GT PRN (09:15)
[2023-06-30] MEDS: ASCORBIC ACID 500 MG TABLET GT SCH (21:02)
[2023-07-01] VITALS (11 sets, daily range): TEMP 98–98.3; O2SAT 96–99
[2023-07-01] MEDS: JEVITY 1.2 1000 ML LIQUID GT PRN (02:06)
[2023-07-01] MEDS: PANTOPRAZOLE ORAL SUSPENSION 40 MG SUSPDR.PKT GT SCH ×2 (05:28→17:04)
[2023-07-01] MEDS: HYDROGEN PEROXIDE 3% 118 ML BOTTLE TP SCH ×2 (07:05→22:19)
[2023-07-01] MEDS: ALBUTEROL SULFATE 2.5 MG/3 ML NEBU NEB SCH ×3 (07:05→22:13)
[2023-07-01] MEDS: IPRATROPIUM BROMIDE 0.5 MG/2.5 ML NEBU NEB SCH ×3 (07:05→22:13)
[2023-07-01] MEDS: levETIRAcetam 500 MG/5 ML LIQUID UDC GT SCH ×2 (09:44→20:27)
[2023-07-01] MEDS: ACIDOPHILUS/BULGARICUS CHEW TAB GT SCH ×2 (09:44→20:27)
[2023-07-01] MEDS: METOPROLOL TARTRATE 75 MG GT SCH ×2 (09:44→21:00)
[2023-07-01] MEDS: KETOCONAZOLE 2% CREAM 30 GM TUBE TP SCH (09:45)
[2023-07-01] MEDS: REMEDY ESSENTIAL ZINC PASTE 113 GM TP SCH ×4 (09:45→20:27)
[2023-07-01] MEDS: ASCORBIC ACID 500 MG TABLET GT SCH (20:27)
[2023-07-02] VITALS (10 sets, daily range): BP systolic 110; BP diastolic 66; TEMP 97.6–98.4; O2SAT 97–99
[2023-07-02] MEDS: IPRATROPIUM BROMIDE 0.5 MG/2.5 ML NEBU NEB SCH ×4 (00:34→19:13)
[2023-07-02] MEDS: ALBUTEROL SULFATE 2.5 MG/3 ML NEBU NEB SCH ×4 (00:34→19:13)
[2023-07-02] MEDS: PANTOPRAZOLE ORAL SUSPENSION 40 MG SUSPDR.PKT GT SCH ×2 (05:35→17:07)
[2023-07-02] MEDS: HYDROGEN PEROXIDE 3% 118 ML BOTTLE TP SCH ×2 (07:15→19:13)
[2023-07-02] MEDS: ACIDOPHILUS/BULGARICUS CHEW TAB GT SCH ×2 (08:17→20:03)
[2023-07-02] MEDS: levETIRAcetam 500 MG/5 ML LIQUID UDC GT SCH ×2 (08:17→20:03)
[2023-07-02] MEDS: KETOCONAZOLE 2% CREAM 30 GM TUBE TP SCH (08:39)
[2023-07-02] MEDS: REMEDY ESSENTIAL ZINC PASTE 113 GM TP SCH ×4 (08:39→20:02)
[2023-07-02] MEDS: KETOCONAZOLE 2% SHAMPOO 120 ML BOTTLE TP SCH (08:39)
[2023-07-02] MEDS: METOPROLOL TARTRATE 75 MG GT SCH ×2 (08:39→20:04)
[2023-07-02] MEDS: NEOMY/BACITRA/POLYMYXIN B OINT UD PACKET TP SCH ×2 (09:00→20:04)
[2023-07-02] MEDS: JEVITY 1.2 1000 ML LIQUID GT PRN (17:07)
[2023-07-02] MEDS: ASCORBIC ACID 500 MG TABLET GT SCH (20:04)
[2023-07-03] VITALS (10 sets, daily range): TEMP 98–98.4; O2SAT 98–99
[2023-07-03] MEDS: ALBUTEROL SULFATE 2.5 MG/3 ML NEBU NEB SCH ×4 (00:45→20:20)
[2023-07-03] MEDS: IPRATROPIUM BROMIDE 0.5 MG/2.5 ML NEBU NEB SCH ×4 (00:45→20:20)
[2023-07-03] MEDS: PANTOPRAZOLE ORAL SUSPENSION 40 MG SUSPDR.PKT GT SCH ×2 (06:55→18:21)
[2023-07-03] MEDS: levETIRAcetam 500 MG/5 ML LIQUID UDC GT SCH ×2 (09:45→20:09)
[2023-07-03] MEDS: NEOMY/BACITRA/POLYMYXIN B OINT UD PACKET TP SCH ×2 (09:45→20:10)
[2023-07-03] MEDS: REMEDY ESSENTIAL ZINC PASTE 113 GM TP SCH ×4 (09:45→20:10)
[2023-07-03] MEDS: KETOCONAZOLE 2% CREAM 30 GM TUBE TP SCH (09:45)
[2023-07-03] MEDS: ACIDOPHILUS/BULGARICUS CHEW TAB GT SCH ×2 (09:45→20:05)
[2023-07-03] MEDS: METOPROLOL TARTRATE 75 MG GT SCH ×2 (09:45→20:06)
[2023-07-03] MEDS: HYDROGEN PEROXIDE 3% 118 ML BOTTLE TP SCH ×2 (09:56→21:00)
[2023-07-03] MEDS: JEVITY 1.2 1000 ML LIQUID GT PRN (16:09)
[2023-07-03] MEDS: ASCORBIC ACID 500 MG TABLET GT SCH (20:09)
[2023-07-04] VITALS (11 sets, daily range): TEMP 97.5–98.7; O2SAT 98–99
[2023-07-04] MEDS: IPRATROPIUM BROMIDE 0.5 MG/2.5 ML NEBU NEB SCH ×4 (01:21→19:14)
[2023-07-04] MEDS: ALBUTEROL SULFATE 2.5 MG/3 ML NEBU NEB SCH ×4 (01:22→19:14)
[2023-07-04] MEDS: PANTOPRAZOLE ORAL SUSPENSION 40 MG SUSPDR.PKT GT SCH ×2 (05:24→18:50)
[2023-07-04] MEDS: HYDROGEN PEROXIDE 3% 118 ML BOTTLE TP SCH ×2 (07:06→21:00)
[2023-07-04] MEDS: ACIDOPHILUS/BULGARICUS CHEW TAB GT SCH ×2 (09:57→21:26)
[2023-07-04] MEDS: levETIRAcetam 500 MG/5 ML LIQUID UDC GT SCH ×2 (09:57→21:27)
[2023-07-04] MEDS: KETOCONAZOLE 2% CREAM 30 GM TUBE TP SCH (09:59)
[2023-07-04] MEDS: METOPROLOL TARTRATE 75 MG GT SCH ×2 (09:59→21:25)
[2023-07-04] MEDS: REMEDY ESSENTIAL ZINC PASTE 113 GM TP SCH ×4 (09:59→21:26)
[2023-07-04] MEDS: NEOMY/BACITRA/POLYMYXIN B OINT UD PACKET TP SCH ×2 (10:00→21:26)
[2023-07-04] MEDS: ASCORBIC ACID 500 MG TABLET GT SCH (21:26)
[2023-07-05] VITALS (9 sets, daily range): TEMP 98.4–99.3; O2SAT 98–99
[2023-07-05] MEDS: ALBUTEROL SULFATE 2.5 MG/3 ML NEBU NEB SCH ×4 (01:39→20:00)
[2023-07-05] MEDS: IPRATROPIUM BROMIDE 0.5 MG/2.5 ML NEBU NEB SCH ×4 (01:39→20:00)
[2023-07-05] MEDS: PANTOPRAZOLE ORAL SUSPENSION 40 MG SUSPDR.PKT GT SCH ×2 (06:59→17:50)
[2023-07-05] MEDS: METOPROLOL TARTRATE 75 MG GT SCH ×2 (09:00→20:31)
[2023-07-05] MEDS: HYDROGEN PEROXIDE 3% 118 ML BOTTLE TP SCH ×2 (09:00→20:52)
[2023-07-05] MEDS: ACIDOPHILUS/BULGARICUS CHEW TAB GT SCH ×2 (09:09→20:23)
[2023-07-05] MEDS: levETIRAcetam 500 MG/5 ML LIQUID UDC GT SCH ×2 (09:11→20:23)
[2023-07-05] MEDS: KETOCONAZOLE 2% CREAM 30 GM TUBE TP SCH (09:11)
[2023-07-05] MEDS: NEOMY/BACITRA/POLYMYXIN B OINT UD PACKET TP SCH ×2 (09:11→20:23)
[2023-07-05] MEDS: REMEDY ESSENTIAL ZINC PASTE 113 GM TP SCH ×4 (09:11→20:23)
[2023-07-05] MEDS: JEVITY 1.2 1000 ML LIQUID GT PRN (15:16)
[2023-07-05] MEDS: ASCORBIC ACID 500 MG TABLET GT SCH (20:23)
[2023-07-06] VITALS (10 sets, daily range): TEMP 97.2–98.5; O2SAT 97–99
[2023-07-06] MEDS: ALBUTEROL SULFATE 2.5 MG/3 ML NEBU NEB SCH ×4 (01:52→19:32)
[2023-07-06] MEDS: IPRATROPIUM BROMIDE 0.5 MG/2.5 ML NEBU NEB SCH ×4 (01:52→19:32)
[2023-07-06] MEDS: PANTOPRAZOLE ORAL SUSPENSION 40 MG SUSPDR.PKT GT SCH ×2 (05:41→18:27)
[2023-07-06] MEDS: KETOCONAZOLE 2% CREAM 30 GM TUBE TP SCH (08:49)
[2023-07-06] MEDS: ACIDOPHILUS/BULGARICUS CHEW TAB GT SCH ×2 (08:49→20:33)
[2023-07-06] MEDS: levETIRAcetam 500 MG/5 ML LIQUID UDC GT SCH ×2 (08:49→20:33)
[2023-07-06] MEDS: METOPROLOL TARTRATE 75 MG GT SCH ×2 (08:49→20:34)
[2023-07-06] MEDS: KETOCONAZOLE 2% SHAMPOO 120 ML BOTTLE TP SCH (08:50)
[2023-07-06] MEDS: REMEDY ESSENTIAL ZINC PASTE 113 GM TP SCH ×4 (08:50→20:34)
[2023-07-06] MEDS: NEOMY/BACITRA/POLYMYXIN B OINT UD PACKET TP SCH ×2 (08:50→20:34)
[2023-07-06] MEDS: HYDROGEN PEROXIDE 3% 118 ML BOTTLE TP SCH ×2 (09:28→19:32)
[2023-07-06] MEDS: JEVITY 1.2 1000 ML LIQUID GT PRN (12:18)
[2023-07-06] MEDS: ASCORBIC ACID 500 MG TABLET GT SCH (20:34)
[2023-07-07] VITALS (12 sets, daily range): TEMP 97.8–98.6; O2SAT 98–99
[2023-07-07] MEDS: IPRATROPIUM BROMIDE 0.5 MG/2.5 ML NEBU NEB SCH ×4 (01:10→19:14)
[2023-07-07] MEDS: ALBUTEROL SULFATE 2.5 MG/3 ML NEBU NEB SCH ×4 (01:10→19:14)
[2023-07-07] MEDS: PANTOPRAZOLE ORAL SUSPENSION 40 MG SUSPDR.PKT GT SCH ×2 (05:45→17:36)
[2023-07-07] MEDS: METOPROLOL TARTRATE 75 MG GT SCH ×2 (09:00→20:35)
[2023-07-07] MEDS: NEOMY/BACITRA/POLYMYXIN B OINT UD PACKET TP SCH ×2 (09:07→20:36)
[2023-07-07] MEDS: REMEDY ESSENTIAL ZINC PASTE 113 GM TP SCH ×4 (09:07→20:36)
[2023-07-07] MEDS: KETOCONAZOLE 2% CREAM 30 GM TUBE TP SCH (09:07)
[2023-07-07] MEDS: ACIDOPHILUS/BULGARICUS CHEW TAB GT SCH ×2 (09:12→20:34)
[2023-07-07] MEDS: levETIRAcetam 500 MG/5 ML LIQUID UDC GT SCH ×2 (09:12→20:34)
[2023-07-07] MEDS: HYDROGEN PEROXIDE 3% 118 ML BOTTLE TP SCH ×2 (09:17→19:14)
[2023-07-07] MEDS: ASCORBIC ACID 500 MG TABLET GT SCH (20:35)
[2023-07-08] VITALS (10 sets, daily range): TEMP 98.3–98.8; O2SAT 98–99
[2023-07-08] MEDS: ALBUTEROL SULFATE 2.5 MG/3 ML NEBU NEB SCH ×4 (00:31→19:14)
[2023-07-08] MEDS: IPRATROPIUM BROMIDE 0.5 MG/2.5 ML NEBU NEB SCH ×4 (00:31→19:14)
[2023-07-08] MEDS: PANTOPRAZOLE ORAL SUSPENSION 40 MG SUSPDR.PKT GT SCH ×2 (06:16→18:13)
[2023-07-08] MEDS: levETIRAcetam 500 MG/5 ML LIQUID UDC GT SCH ×2 (08:37→20:29)
[2023-07-08] MEDS: ACIDOPHILUS/BULGARICUS CHEW TAB GT SCH ×2 (08:37→20:29)
[2023-07-08] MEDS: METOPROLOL TARTRATE 75 MG GT SCH ×2 (08:38→20:29)
[2023-07-08] MEDS: KETOCONAZOLE 2% CREAM 30 GM TUBE TP SCH (08:38)
[2023-07-08] MEDS: REMEDY ESSENTIAL ZINC PASTE 113 GM TP SCH ×4 (08:38→20:29)
[2023-07-08] MEDS: NEOMY/BACITRA/POLYMYXIN B OINT UD PACKET TP SCH ×2 (08:38→20:29)
[2023-07-08] MEDS: HYDROGEN PEROXIDE 3% 118 ML BOTTLE TP SCH ×2 (09:07→19:14)
[2023-07-08] MEDS: ASCORBIC ACID 500 MG TABLET GT SCH (20:29)
[2023-07-09] VITALS (10 sets, daily range): TEMP 97.9–98; O2SAT 98–99
[2023-07-09] MEDS: IPRATROPIUM BROMIDE 0.5 MG/2.5 ML NEBU NEB SCH ×4 (02:08→19:02)
[2023-07-09] MEDS: ALBUTEROL SULFATE 2.5 MG/3 ML NEBU NEB SCH ×4 (02:08→19:02)
[2023-07-09] MEDS: JEVITY 1.2 1000 ML LIQUID GT PRN (03:36)
[2023-07-09] MEDS: PANTOPRAZOLE ORAL SUSPENSION 40 MG SUSPDR.PKT GT SCH ×2 (05:49→18:43)
[2023-07-09] MEDS: HYDROGEN PEROXIDE 3% 118 ML BOTTLE TP SCH ×2 (07:50→20:59)
[2023-07-09] MEDS: ACIDOPHILUS/BULGARICUS CHEW TAB GT SCH ×2 (08:37→21:01)
[2023-07-09] MEDS: METOPROLOL TARTRATE 75 MG GT SCH ×2 (08:38→21:01)
[2023-07-09] MEDS: levETIRAcetam 500 MG/5 ML LIQUID UDC GT SCH ×2 (08:38→21:01)
[2023-07-09] MEDS: KETOCONAZOLE 2% CREAM 30 GM TUBE TP SCH (08:39)
[2023-07-09] MEDS: KETOCONAZOLE 2% SHAMPOO 120 ML BOTTLE TP SCH (08:39)
[2023-07-09] MEDS: REMEDY ESSENTIAL ZINC PASTE 113 GM TP SCH ×4 (08:39→21:02)
[2023-07-09] MEDS: ASCORBIC ACID 500 MG TABLET GT SCH (21:02)
[2023-07-10] VITALS (10 sets, daily range): TEMP 97–98.5; O2SAT 98–99
[2023-07-10] MEDS: ALBUTEROL SULFATE 2.5 MG/3 ML NEBU NEB SCH ×4 (01:03→19:21)
[2023-07-10] MEDS: IPRATROPIUM BROMIDE 0.5 MG/2.5 ML NEBU NEB SCH ×4 (01:03→19:21)
[2023-07-10] MEDS: ACETAMINOPHEN 650 MG/20 ML UDC- SA PATIENTS-PAIN ONLY GT PRN (03:17)
[2023-07-10] MEDS: JEVITY 1.2 1000 ML LIQUID GT PRN (06:05)
[2023-07-10] MEDS: PANTOPRAZOLE ORAL SUSPENSION 40 MG SUSPDR.PKT GT SCH ×2 (06:28→18:13)
[2023-07-10] MEDS: HYDROGEN PEROXIDE 3% 118 ML BOTTLE TP SCH ×2 (08:43→19:21)
[2023-07-10] MEDS: METOPROLOL TARTRATE 75 MG GT SCH ×2 (09:00→21:00)
[2023-07-10] MEDS: ACIDOPHILUS/BULGARICUS CHEW TAB GT SCH ×2 (09:53→21:00)
[2023-07-10] MEDS: levETIRAcetam 500 MG/5 ML LIQUID UDC GT SCH ×2 (09:53→21:00)
[2023-07-10] MEDS: REMEDY ESSENTIAL ZINC PASTE 113 GM TP SCH ×4 (09:54→21:00)
[2023-07-10] MEDS: KETOCONAZOLE 2% CREAM 30 GM TUBE TP SCH (09:54)
[2023-07-10] MEDS: COD LIVER OIL/ZINC OXIDE OINT 113 GM TUBE TP SCH ×2 (21:00)
[2023-07-10] MEDS: ASCORBIC ACID 500 MG TABLET GT SCH (21:00)
[2023-07-11] VITALS (9 sets, daily range): TEMP 97.7; O2SAT 99
[2023-07-11] MEDS: ALBUTEROL SULFATE 2.5 MG/3 ML NEBU NEB SCH ×4 (01:23→19:03)
[2023-07-11] MEDS: IPRATROPIUM BROMIDE 0.5 MG/2.5 ML NEBU NEB SCH ×4 (01:23→19:03)
[2023-07-11] MEDS: PANTOPRAZOLE ORAL SUSPENSION 40 MG SUSPDR.PKT GT SCH ×2 (05:07→17:32)
[2023-07-11] MEDS: ACIDOPHILUS/BULGARICUS CHEW TAB GT SCH ×2 (09:08→21:37)
[2023-07-11] MEDS: levETIRAcetam 500 MG/5 ML LIQUID UDC GT SCH ×2 (09:08→21:40)
[2023-07-11] MEDS: REMEDY ESSENTIAL ZINC PASTE 113 GM TP SCH ×4 (09:09→21:40)
[2023-07-11] MEDS: METOPROLOL TARTRATE 75 MG GT SCH ×2 (09:09→21:38)
[2023-07-11] MEDS: COD LIVER OIL/ZINC OXIDE OINT 113 GM TUBE TP SCH ×4 (09:09→21:40)
[2023-07-11] MEDS: KETOCONAZOLE 2% CREAM 30 GM TUBE TP SCH (09:09)
[2023-07-11] MEDS: HYDROGEN PEROXIDE 3% 118 ML BOTTLE TP SCH ×2 (09:39→19:03)
[2023-07-11] MEDS: ASCORBIC ACID 500 MG TABLET GT SCH (21:37)
[2023-07-12] VITALS (11 sets, daily range): BP systolic 105; BP diastolic 68; TEMP 98.5–98.8; O2SAT 98–99
[2023-07-12] MEDS: IPRATROPIUM BROMIDE 0.5 MG/2.5 ML NEBU NEB SCH ×4 (01:00→19:14)
[2023-07-12] MEDS: ALBUTEROL SULFATE 2.5 MG/3 ML NEBU NEB SCH ×4 (01:01→19:14)
[2023-07-12] MEDS: PANTOPRAZOLE ORAL SUSPENSION 40 MG SUSPDR.PKT GT SCH ×2 (05:58→17:46)
[2023-07-12] MEDS: JEVITY 1.2 1000 ML LIQUID GT PRN ×2 (05:59→22:57)
[2023-07-12] MEDS: ACIDOPHILUS/BULGARICUS CHEW TAB GT SCH ×2 (08:17→20:35)
[2023-07-12] MEDS: METOPROLOL TARTRATE 75 MG GT SCH ×2 (08:18→20:36)
[2023-07-12] MEDS: levETIRAcetam 500 MG/5 ML LIQUID UDC GT SCH ×2 (08:18→20:35)
[2023-07-12] MEDS: COD LIVER OIL/ZINC OXIDE OINT 113 GM TUBE TP SCH ×4 (08:19→20:37)
[2023-07-12] MEDS: REMEDY ESSENTIAL ZINC PASTE 113 GM TP SCH ×4 (08:20→20:37)
[2023-07-12] MEDS: KETOCONAZOLE 2% CREAM 30 GM TUBE TP SCH (08:20)
[2023-07-12] MEDS: HYDROGEN PEROXIDE 3% 118 ML BOTTLE TP SCH ×2 (09:02→19:15)
[2023-07-12] MEDS: ASCORBIC ACID 500 MG TABLET GT SCH (20:37)
[2023-07-13 01:10] VITALS: O2SAT 99
[2023-07-13] MEDS: ALBUTEROL SULFATE 2.5 MG/3 ML NEBU NEB SCH (01:10)
[2023-07-13] MEDS: IPRATROPIUM BROMIDE 0.5 MG/2.5 ML NEBU NEB SCH (01:10)
[2023-07-13 01:20] VITALS: O2SAT 99
[2023-07-13] MEDS: PANTOPRAZOLE ORAL SUSPENSION 40 MG SUSPDR.PKT GT SCH (05:14)
== END 2023-07-11 23:59 | disposition still patient (30) | DRG 133 ==
LOC: SA → UNDOADMIN 07-14 07:36 → SA 07-14 07:36 → SA1 02-04 22:08 → SA 02-07 19:17
PROVIDERS: ADMIT Internal Medicine; ATTEND Internal Medicine
DX: J96.21 Acute and chronic respiratory failure with hypoxia (principal); G92.8 Other toxic encephalopathy; E43 Unspecified severe protein-calorie malnutrition; I42.9 Cardiomyopathy, unspecified; L89.93 Pressure ulcer of unspecified site, stage 3; I69.354 Hemiplegia and hemiparesis following cerebral infarction affecting left non-dominant side; D64.9 Anemia, unspecified; D75.89 Other specified diseases of blood and blood-forming organs; E16.2 Hypoglycemia, unspecified; F10.10 Alcohol abuse, uncomplicated; E87.1 Hypo-osmolality and hyponatremia; F19.10 Other psychoactive substance abuse, uncomplicated; G40.909 Epilepsy, unspecified, not intractable, without status epilepticus; I25.2 Old myocardial infarction; I50.42 Chronic combined systolic (congestive) and diastolic (congestive) heart failure; J32.3 Chronic sphenoidal sinusitis; J44.9 Chronic obstructive pulmonary disease, unspecified; J96.22 Acute and chronic respiratory failure with hypercapnia; J98.11 Atelectasis; K76.0 Fatty (change of) liver, not elsewhere classified; K82.8 Other specified diseases of gallbladder; L03.317 Cellulitis of buttock; L21.9 Seborrheic dermatitis, unspecified; L97.519 Non-pressure chronic ulcer of other part of right foot with unspecified severity; L97.529 Non-pressure chronic ulcer of other part of left foot with unspecified severity; M24.562 Contracture, left knee; M24.561 Contracture, right knee; R13.10 Dysphagia, unspecified; R53.2 Functional quadriplegia; Z51.5 Encounter for palliative care; Z66 Do not resuscitate; Z87.891 Personal history of nicotine dependence; Z88.0 Allergy status to penicillin; Z88.6 Allergy status to analgesic agent; Z93.0 Tracheostomy status; Z93.1 Gastrostomy status; K21.9 Gastro-esophageal reflux disease without esophagitis
CPT/HCPCS: 36415; 71045; 76700; 83735; 84100; 85025; 86580; 87040; 90686; 94003; 94640; A4663; A6209; A6213; C1758; J1650; J1956; Q9967; U0003

== ENCOUNTER 2023-07-12 | Inpatient (IN) | payer OTHER ==
[~2023-07-12] VITALS: Ht 182.9 cm; Wt 53.5 kg
[2023-07-13] VITALS (8 sets, daily range): TEMP 97.7–98.2; O2SAT 98–99
[2023-07-13] MEDS: ALBUTEROL SULFATE 2.5 MG/3 ML NEBU NEB SCH (07:53)
[2023-07-13] MEDS: IPRATROPIUM BROMIDE 0.5 MG/2.5 ML NEBU NEB SCH (07:53)
[2023-07-13] MEDS ORDERED: HYDROGEN PEROXIDE 3% 118 ML BOTTLE TP PRN (08:00)
[2023-07-13] MEDS ORDERED: REMEDY ESSENTIAL ZINC PASTE 113 GM TP PRN (08:00)
[2023-07-13] MEDS ORDERED: BISACODYL 10 MG SUPP.RECT RC PRN (08:00)
[2023-07-13] MEDS ORDERED: MAGNESIUM HYDROXIDE 30 ML LIQUID UDC GT PRN (08:00)
[2023-07-13] MEDS: ACIDOPHILUS/BULGARICUS CHEW TAB GT SCH (09:00)
[2023-07-13] MEDS: METOPROLOL TARTRATE 75 MG GT SCH (09:00)
[2023-07-13] MEDS: KETOCONAZOLE 2% CREAM 30 GM TUBE TP SCH (09:00)
[2023-07-13] MEDS: levETIRAcetam 500 MG/5 ML LIQUID UDC GT SCH (09:00)
[2023-07-13] MEDS: COD LIVER OIL/ZINC OXIDE OINT 113 GM TUBE TP SCH ×2 (09:00)
[2023-07-13] MEDS: REMEDY ESSENTIAL ZINC PASTE 113 GM TP SCH ×2 (09:01)
[2023-07-13] MEDS: KETOCONAZOLE 2% SHAMPOO 120 ML BOTTLE TP SCH (09:01)
[2023-07-13] MEDS: HYDROGEN PEROXIDE 3% 118 ML BOTTLE TP SCH (09:49)
[2023-07-13] MEDS: PANTOPRAZOLE ORAL SUSPENSION 40 MG SUSPDR.PKT GT SCH (17:32)
[2023-07-13] MEDS: ASCORBIC ACID 500 MG TABLET GT SCH (21:54)
[2023-07-14] VITALS (11 sets, daily range): TEMP 97.6–98; O2SAT 98–99
[2023-07-14] MEDS: GENTAMICIN SULFATE OPHT DROP 5 ML BOTTLE LEFTEYE SCH (09:20)
[2023-07-15] VITALS (10 sets, daily range): TEMP 97.5–98.3; O2SAT 97–99
[2023-07-15] MEDS: JEVITY 1.2 1000 ML LIQUID GT PRN (05:38)
[2023-07-16] VITALS (10 sets, daily range): TEMP 97.9–98.6; O2SAT 98–99
[2023-07-17] VITALS (10 sets, daily range): TEMP 97.6–98.6; O2SAT 97–99
[2023-07-17] MEDS: NEOMY/BACITRAC/POLYMI OINT 28.35 GM TUBE TOP SCH (23:09)
[2023-07-18] VITALS (10 sets, daily range): TEMP 97.6–97.7; O2SAT 97–99
[2023-07-18] MEDS: NEOMY/BACITRA/POLYMYXIN B OINT UD PACKET TP SCH (09:29)
[2023-07-19] VITALS (11 sets, daily range): TEMP 98.3–99.2; O2SAT 97–99
[2023-07-20] VITALS (10 sets, daily range): TEMP 98.9; O2SAT 97–99
[2023-07-21] VITALS (11 sets, daily range): TEMP 98.2–98.5; O2SAT 99
[2023-07-22] VITALS (10 sets, daily range): TEMP 98.4–98.6; O2SAT 97–99
[2023-07-23] VITALS (10 sets, daily range): TEMP 98.2–98.3; O2SAT 97–99
[2023-07-24] VITALS (10 sets, daily range): TEMP 97.9–98.1; O2SAT 99
[2023-07-25] VITALS (10 sets, daily range): TEMP 97.9–98.3; O2SAT 99
[2023-07-26] VITALS (10 sets, daily range): TEMP 97.6–98.6; O2SAT 99
[2023-07-27] VITALS (10 sets, daily range): TEMP 97.8–98; O2SAT 96–99
[2023-07-28] VITALS (9 sets, daily range): TEMP 97.6–97.8; O2SAT 96–99
[2023-07-29] VITALS (10 sets, daily range): TEMP 98.2–98.6; O2SAT 96–99
[2023-07-30] VITALS (10 sets, daily range): TEMP 97.4–98.6; O2SAT 97–99
[2023-07-31] VITALS (10 sets, daily range): TEMP 97.4–97.6; O2SAT 97–99
[2023-08-01] VITALS (11 sets, daily range): TEMP 98–98.5; O2SAT 97–99
[2023-08-02] VITALS (10 sets, daily range): TEMP 98–98.8; O2SAT 97–99
[2023-08-03] VITALS (11 sets, daily range): TEMP 97.6–98.3; O2SAT 96–99
[2023-08-04] VITALS (10 sets, daily range): TEMP 97.3–98.2; O2SAT 96–99
[2023-08-05] VITALS (10 sets, daily range): TEMP 98–98.2; O2SAT 96–99
[2023-08-06] VITALS (9 sets, daily range): TEMP 97.6; O2SAT 96–99
[2023-08-06] MEDS: ACETAMINOPHEN 650 MG/20 ML UDC- SA PATIENTS-PAIN ONLY GT PRN (20:22)
[2023-08-07] VITALS (10 sets, daily range): TEMP 97.8–98.4; O2SAT 96–99
[2023-08-08] VITALS (11 sets, daily range): TEMP 98.5–98.6; O2SAT 97–99
[2023-08-09] VITALS (10 sets, daily range): TEMP 97.8–98; O2SAT 96–99
[2023-08-10] VITALS (10 sets, daily range): TEMP 97.8–98.2; O2SAT 97–99
[2023-08-11] VITALS (10 sets, daily range): TEMP 97.7–98.5; O2SAT 97–99
[2023-08-12] VITALS (10 sets, daily range): TEMP 98.2–98.3; O2SAT 97–99
[2023-08-13] VITALS (10 sets, daily range): TEMP 97.8–99.2; O2SAT 97–99
[2023-08-14] VITALS (10 sets, daily range): TEMP 97.8–98.5; O2SAT 97–99
[2023-08-15] VITALS (10 sets, daily range): TEMP 98.1–98.4; O2SAT 97–99
[2023-08-16] VITALS (11 sets, daily range): TEMP 98.4–99.4; O2SAT 97–99
[2023-08-17] VITALS (11 sets, daily range): TEMP 98.8; O2SAT 94–99
[2023-08-17] MEDS: HYDROCODONE/APAP 10-325 MG TABLET GT PRN (04:04)
[2023-08-18] VITALS (11 sets, daily range): TEMP 97.5–101; O2SAT 98–99
[2023-08-18] MEDS: levoFLOXacin 750 MG TABLET PO SCH ×2 (21:00→21:47)
[2023-08-18] MEDS: ACETAMINOPHEN 650 MG/20 ML UDC- SA PATIENTS-FEVER ONLY GT PRN (21:51)
[2023-08-19] VITALS (11 sets, daily range): TEMP 98.2–99.9; O2SAT 98
[2023-08-19 06:25] LABS: BASOPHILS % (AUTO) 0.1 % (0.0-2.0); EOSINOPHILS % (AUTO) 0.3 % (0.0-7.0); HEMOGLOBIN 11.4 g/dL (12.5-16.3); LYMPHOCYTES # (AUTO) 0.6 K/uL (0.8-4.8); LYMPHOCYTES % (AUTO) 6.9 % (20.5-51.5); MEAN CORPUSCULAR HGB CONC 34 g/dL (32.5-36.3); MEAN CORPUSCULAR VOLUME 86.4 fL (73.0-96.2); MONOCYTES # (AUTO) 1.1 K/uL (0.1-1.30); MONOCYTES % (AUTO) 12.5 % (0.0-11.0); NEUTROPHILS # (AUTO) 7.3 K/uL (1.8-8.9); NEUTROPHILS % (AUTO) 80.2 % (38.5-71.5); PLATELET COUNT (AUTO) 496 K/uL (152-348); RED BLOOD CELL COUNT(AUTO) 3.94 MIL/uL (4.06-5.63); RED CELL DISTRIBUTION WIDTH 14.7 % (12.1-16.2); WHITE BLOOD COUNT (AUTO) 9.1 K/uL (3.6-10.2)
[2023-08-19 06:41] LABS: CALCIUM 9.2 mg/dL (8.5-10.1); CREATININE 0.8 mg/dL (0.6-1.3); POTASSIUM 4.2 mmol/L (3.5-5.1)
[2023-08-19 06:54] LABS: DIFFERENTIAL COMMENT 1
[2023-08-19] MEDS: MORPHINE SULFATE 2 MG/1 ML DISP.SYRIN IV PRN (07:17)
[2023-08-19] MEDS: MORPHINE SULFATE 10 MG/1 ML DISP.SYRIN IV PRN (16:21)
[2023-08-20] VITALS (10 sets, daily range): TEMP 98–98.4; O2SAT 97–99
[2023-08-21] VITALS (10 sets, daily range): TEMP 97.2–98.8; O2SAT 96–99
[2023-08-22] VITALS (10 sets, daily range): TEMP 97.6–98.9; O2SAT 98–99
[2023-08-23] VITALS (10 sets, daily range): TEMP 98.4–98.6; O2SAT 9–99
[2023-08-23] MEDS: GENTAMICIN SULFATE IV SCH (13:00)
[2023-08-23] MEDS: DEXTROSE 5% IV SCH (13:00)
[2023-08-24] VITALS (10 sets, daily range): TEMP 97.8–98.4; O2SAT 93–99
[2023-08-24] MEDS: GENTAMICIN SULFATE INJ 100 MG in IV DEXTROSE 5% 100 ML IV SCH ×2 (01:01→23:46)
[2023-08-24 02:37] LABS: CREATININE 0.7 mg/dL (0.6-1.3)
[2023-08-25] VITALS (10 sets, daily range): TEMP 97.2–98.5; O2SAT 93–98
[2023-08-26] VITALS (10 sets, daily range): TEMP 98.8; O2SAT 97–99
[2023-08-26 12:32] LABS: CREATININE 0.9 mg/dL (0.6-1.3)
[2023-08-27] VITALS (11 sets, daily range): TEMP 97.3–98.1; O2SAT 97–98
[2023-08-28] VITALS (10 sets, daily range): TEMP 97.2–98.2; O2SAT 90–98
[2023-08-29] VITALS (12 sets, daily range): TEMP 97.2–100.2; O2SAT 92–98
[2023-08-29] MEDS ORDERED: MORPHINE SULFATE 2 MG/1 ML DISP.SYRIN IV PRN (19:45)
[2023-08-30] VITALS (11 sets, daily range): TEMP 97.6–98.7; O2SAT 95–98
[2023-08-30] MEDS: COD LIVER OIL/ZINC OXIDE OINT 113 GM TUBE TP SCH (09:42)
[2023-08-30] MEDS ORDERED: JEVITY 1.2 1000 ML LIQUID GT PRN (15:50)
[2023-08-31] VITALS (12 sets, daily range): TEMP 97–100.8; O2SAT 95–99
[2023-08-31] MEDS: MORPHINE SULFATE 10 MG/1 ML DISP.SYRIN IV PRN (18:51)
[2023-08-31] MEDS ORDERED: MORPHINE SULFATE 2 MG/1 ML DISP.SYRIN IV PRN (19:15)
[2023-08-31] MEDS: MORPHINE SULFATE 2 MG/1 ML DISP.SYRIN IV PRN (22:50)
[2023-09-01] VITALS (12 sets, daily range): TEMP 98.2–99.9; O2SAT 92–99
[2023-09-02] VITALS (10 sets, daily range): TEMP 97.6–99.7; O2SAT 96–99
[2023-09-02] MEDS: JEVITY 1.2 1000 ML LIQUID GT PRN (02:52)
[2023-09-03] VITALS (10 sets, daily range): TEMP 98–98.8; O2SAT 96–99
[2023-09-04] VITALS (10 sets, daily range): TEMP 97.8–99.9; O2SAT 95–99
[2023-09-05] VITALS (10 sets, daily range): TEMP 98.4–99.9; O2SAT 92–99
[2023-09-06 01:05] VITALS: O2SAT 92
[2023-09-06 01:15] VITALS: O2SAT 96
[2023-09-06 07:27] VITALS: TEMP 101.6
[2023-09-06 07:31] VITALS: O2SAT 95
[2023-09-06 07:40] VITALS: O2SAT 99
[2023-09-06 08:46] VITALS: BP 110/70
== END 2023-09-06 12:30 | DRG 133 ==
LOC: SA
PROVIDERS: ADMIT Internal Medicine; ATTEND Internal Medicine
DX: J96.21 Acute and chronic respiratory failure with hypoxia (principal); J69.0 Pneumonitis due to inhalation of food and vomit; G92.8 Other toxic encephalopathy; E43 Unspecified severe protein-calorie malnutrition; I42.9 Cardiomyopathy, unspecified; G31.2 Degeneration of nervous system due to alcohol; I50.22 Chronic systolic (congestive) heart failure; D64.9 Anemia, unspecified; S61.401A Unspecified open wound of right hand, initial encounter; Z66 Do not resuscitate; Z51.5 Encounter for palliative care; I69.354 Hemiplegia and hemiparesis following cerebral infarction affecting left non-dominant side; K76.0 Fatty (change of) liver, not elsewhere classified; Z93.0 Tracheostomy status; Z86.74 Personal history of sudden cardiac arrest; Z87.01 Personal history of pneumonia (recurrent); D75.89 Other specified diseases of blood and blood-forming organs; J32.3 Chronic sphenoidal sinusitis; Z88.0 Allergy status to penicillin; Z88.6 Allergy status to analgesic agent; Z93.1 Gastrostomy status; Z87.891 Personal history of nicotine dependence; F19.11 Other psychoactive substance abuse, in remission; F10.11 Alcohol abuse, in remission; G40.909 Epilepsy, unspecified, not intractable, without status epilepticus; I25.2 Old myocardial infarction; L21.9 Seborrheic dermatitis, unspecified; G43.909 Migraine, unspecified, not intractable, without status migrainosus; L97.519 Non-pressure chronic ulcer of other part of right foot with unspecified severity; H10.9 Unspecified conjunctivitis; R13.10 Dysphagia, unspecified; K21.9 Gastro-esophageal reflux disease without esophagitis; F99 Mental disorder, not otherwise specified; X58.XXXA Exposure to other specified factors, initial encounter; Y92.9 Unspecified place or not applicable; Z87.440 Personal history of urinary (tract) infections; R11.10 Vomiting, unspecified; J44.9 Chronic obstructive pulmonary disease, unspecified; L03.317 Cellulitis of buttock; R21 Rash and other nonspecific skin eruption
CPT/HCPCS: 36415; 71045; 84520; 85025; 94640; A6209; A6213; J1580; J2270